=== PATIENT | female | born 1955 | race Caucasian/White ===

== ENCOUNTER 2020-06-13 17:18 | Emergency (ER) | payer MEDICARE, SELFPAY ==
[2020-06-13 17:42] VITALS: BP 130/87; PULSE 70; RESP 18; TEMP 37; O2SAT 100; BMI 40.2
--- NOTE | 2020-06-13 19:00 | PC.NURSE ---
patient approached this rn there are people who are going ahead of me that don't need to go ahead of me. Process of triage explained. patient educated of current longest wait time. patient verbalized understanding.
--- NOTE | 2020-06-13 21:50 | PC.NURSE ---
herminio rn to pt and family bedside educating and expression concerns about wait time.
--- NOTE | 2020-06-13 22:41 | ED.GENADULT ---
HPI - General Adult General Chief complaint: General Medical Stated complaint: Leg Swelling Time Seen by Provider: 06/13/20 22:41 History of Present Illness HPI narrative: 65-year-old female presents with 3 days of worsening right leg pain that she states started in the right inguinal area and now is extending down in to the distal portion of her right lower extremity. In addition, patient states that her leg has increased in size and she is concerned because she has history of prior PE. this course has not been associated with fevers, chills, chest pain / palpitations, nausea, vomiting, diarrhea, urinary pain /burning / frequency. Also, patient denies any numbness/ tingling /weakness into the right lower extremity. No recent history of long car rides or plane trips, hemoptysis, estrogen supplementation, personal history of cancer, recent surgery or bed bound state, calf pain or calf swelling. She states her PE was in 2011 and she is no longer required to take anticoagulants. Related Data Allergies Allergy/AdvReac Type Severity Reaction Status Date / Time gentamicin Allergy Severe DIFFICULTY Unverified 05/26/20 15:35 BREATHING Iodinated Contrast Media Allergy Severe DIFFICULTY Unverified 05/26/20 15:35 BREATHING, NAUSEA, VOMITING latex [LATEX] Allergy Severe ANAPHYLASIS Unverified 05/26/20 15:35 morphine Allergy Severe ANAPHYLAXIS Unverified 05/26/20 15:35 Penicillins Allergy Severe STOPPED Unverified 05/26/20 15:35 BREATHING vancomycin Allergy Severe DIFFICULTY Unverified 05/26/20 15:35 BREATHING esomeprazole Allergy Mild UNKNOWN Unverified 05/26/20 15:35 azithromycin Allergy Unknown Verified 04/03/17 00:00 penicillin V Allergy Unknown Verified 04/03/17 00:00 shellfish derived Allergy Unknown DIFF Unverified 05/26/20 15:35 [SHELLFISH DERIVED] BREATHING, SWELLING pantoprazole AdvReac Mild NAUSEA & Unverified 05/26/20 15:35 VOMITING Erythromycin Allergy Unknown Uncoded 04/03/17 00:00 Gentamicin Sulfate Allergy Unknown Uncoded 04/03/17 00:00 iv contrast dye Allergy Unknown Uncoded 04/03/17 00:00 Latex Gloves Allergy Unknown Uncoded 04/03/17 00:00 From NEXIUM AdvReac Severe VOMITING Uncoded 05/26/20 15:35 Review of Systems Review of Systems: Pertinent positives and negatives as stated in HPI 10 point review of systems is otherwise negative. [facility] Past Medical History Source: nursing notes reviewed Medical History Accelerated essential hypertension Diabetes Embolism Pancreatitis Social History Social History Smoked in Last 30 Days: No Use of substances other than those prescribed or required for medical reasons: No Advance Directives: No Advance Directives Information Provided: Yes Physical Exam Vital Signs and I&O and Narrative: Vital Signs and I&O: Vital Signs Temp 98.2 F 06/13/20 22:53 Pulse 99 06/13/20 22:53 Resp 18 06/13/20 22:53 BP 166/71 H 06/13/20 22:53 Pulse Ox 99 06/13/20 22:53 Intake & Output 06/13/20 06/13/20 06/14/20 06:59 18:59 06:59 Weight 99.79 kg Body Mass Index 40.2 VITAL SIGNS: Reviewed. GENERAL: Well developed, well nourished, in no acute distress. HEAD: Normocephalic/atraumatic, Posterior oropharynx was without edema, erythema or exudate. EYES: PERRLA, Pupils <>, EOMI intact without pain, no nystagmus/pallor/icterus noted EARS: Ext canals without abnormality, TMs non-bulging and non-erythematous NOSE: Nares patent bilateral OROPHARYNX: no oral lesions noted, posterior pharynx clear and non-erythematous without noted tonsillar enlargement/erythema/exudates NECK: Supple, no adenopathy LUNGS: Normal breath sounds. No adventitious sounds or accessory muscle use. SpO2<> CARDIOVASCULAR: Regular rate and rhythm without noted murmurs, no JVD, Bilateral lower extremity nonpitting edema. ABDOMEN: Soft, non-tender, non-distended with bowel sounds. No rigidity. No guarding. No palpable masses or hernias noted MUSCULOSKELETAL: No tenderness, deformities, or effusions noted on gross inspection. EXTREMITIES: No cyanosis, clubbing or edema. SKIN: Inspection of the skin reveals no rashes, ulcerations, jaundice, pallor, or petechiae. NEUROLOGIC: Alert and oriented x 3. Strength and sensation to light touch were grossly intact x 4. Course Course Course Narrative: This is a 65-year-old female with history and clinical presentation most suggestive of likely musculoskeletal etiology, but due to history will evaluate for possible DVT. Review of all investigations is negative for any evidence infection, anemia, or electrolyte imbalance, UTI, and most importantly venous duplex was negative for any evidence DVT. All results and findings were discussed with patient at bedside and informed the patient that this may be secondary to arthritis. She states that her PCP had said the same thing. Medical Decision Making Lab Data Result diagrams: 06/13/20 23:31 06/13/20 23:31 Labs: Lab Results 06/13/20 06/13/20 06/14/20 Range/Units 23:31 23:31 01:04 WBC 6.2 (4.8-10.8) X10*3/uL RBC 4.50 (4.20-5.50) X10*6/uL Hgb 13.1 (12.0-16.0) g/dl Hct 40.5 (37-47) % MCV 90.0 (80-98) fL MCH 29.1 (27.0-33.0) pg MCHC 32.3 (31.0-35.0) g/dl RDW 13.2 (11.0-16.0) % Plt Count 250 (160-400) X10*3/uL MPV 10.9 (9.4-12.3) fL Immature Gran % (Auto) 0.6 H (0.0-0.4) % Neut % (Auto) 64.1 (45-73) % Lymph % (Auto) 22.7 (20-40) % Gates % (Auto) 6.2 (2-11) % Eos % (Auto) 5.4 H (0-4) % Baso % (Auto) 1.0 (0-2) % Neut # (Auto) 4.0 (2.0-8.3) X10*3/uL Lymph # (Auto) 1.4 (1.2-4.9) X10*3/uL Gates # (Auto) 0.4 (0.1-1.2) X10*3/uL Eos # (Auto) 0.3 (0.0-0.4) X10*3/uL Baso # (Auto) 0.1 (0.0-0.2) X10*3/uL Abs Immat Gran (auto) 0.04 H (0.00-0.03) X10*3/uL Absolute Nucleated RBC 0.000 (0.0-0.012) X10*3/uL Nucleated RBC % (auto) 0.0 (0.0-0.2) /100WBC Sodium 138 (135-145) mmol/L Potassium 4.3 (3.3-5.1) mmol/l Chloride 101 (96-108) mmol/L Carbon Dioxide 29 (22-29) mmol/L Anion Gap 12 (12-20) BUN 15 (9-16) mg/dL Creatinine 0.91 (0.5-1.4) mg/dL Estim Creat Clear Calc 66.2 Estimated GFR > 60 Random Glucose 137 H (60-115) mg/dL Calcium 9.8 (8.4-10.2) mg/dL Total Bilirubin 0.6 (0.0-1.0) mg/dL AST 28 (5-31) U/L ALT 23 (0-31) U/L Alkaline Phosphatase 79 (39-117) U/L Total Protein 7.3 (6.5-8.0) g/dL Albumin 4.3 (3.5-5.0) g/dL Urine Color YELLOW Urine Appearance CLEAR Urine pH 7.5 (5.0-8.0) Ur Specific Fleming 1.020 (1.005-1.025) Urine Protein NEG (NEG-TRACE) MG/DL Urine Glucose (UA) NEG (NEG) MG/DL Urine Ketones NEG (NEG) MG/DL Urine Blood NEG (NEG) Urine Nitrite NEG (NEG) Ur Leukocyte Esterase NEG (NEG) ECG Data Attestation: I personally reviewed and interpreted this ECG as follows: Prior ECG tracings: available for review (04/04/2018) Interpretation: NSR, HR-80, no evidence of ischemia Discharge Plan Discharge Clinical Impression: Acute hip pain Qualifiers: Laterality: right Qualified Code(s): M25.551 - Pain in right hip Patient Disposition: Home, Self-Care Instructions: Hip Pain (ED) Additional Instructions: 1. resume all home medications as prescribed. 2. Tylenol 1000 mg, orally, every 6 hours as needed for pain control. Do not exceed 4000 mg within 24 hours. 3. consider the use of lidocaine patches, available [id number] at any drug store, apply to area of maximal tenderness as directed on the outside packaging. The patient and/or family acknowledge understanding of results (as applicable), diagnosis, treatment plan, need for follow up, and symptoms that should prompt a return to the emergency room. Referrals: Carmita Holloway MD [Primary Care Provider] - 2 days (For further evaluation of your right hip pain.)
--- NOTE | 2020-06-13 22:48 | ECG_ITS ---
Test Reason : MEDICAL CLEARANCE Blood Pressure : / mmHG Vent. Rate : 080 BPM Atrial Rate : 080 BPM P-R Int : 152 ms QRS Dur : 080 ms QT Int : 408 ms P-R-T Axes : 067 032 069 degrees QTc Int : 470 ms Normal sinus rhythm Normal ECG When compared with ECG of 04-APR-2018 04:58, No significant change was found Referred By: Tracy Cabrera Electronically Signed By:CANDACE PALMER
--- NOTE | 2020-06-13 22:49 | US_ITS ---
EXAMINATION: RIGHT LOWER EXTREMITY VENOUS ULTRASOUND CLINICAL INFORMATION: Edema. Pain.. COMPARISON: None. TECHNIQUE: Doppler spectral analysis and color flow Doppler imaging was performed of the right lower extremity. Compression and augmentation maneuvers were performed. FINDINGS: The right common femoral, femoral, popliteal and calf veins were well-identified and normal. They demonstrate normal compressibility and color fill-in. No evidence of popliteal fossa cyst. IMPRESSION: No evidence for right lower extremity deep vein thrombosis.
[2020-06-13 22:53] VITALS: BP 166/71; PULSE 99; RESP 18; TEMP 36.8; O2SAT 99
--- NOTE | 2020-06-13 23:12 | PC.NURSE ---
patient transported to ultrasound
[2020-06-13 23:34] LABS: MANUAL DIFF FLAG NO
[2020-06-13 23:37] LABS: Basophils Absolute Auto 0.1 X10*3/uL (0.0-0.2); Eosinophils Absolute Auto 0.3 X10*3/uL (0.0-0.4); Eosinophils Percent Auto 5.4 % (0-4); Hematocrit 40.5 % (37-47); Hemoglobin 13.1 g/dl (12.0-16.0); Imm Gran Abs Auto 0.04 X10*3/uL (0.00-0.03); Imm Gran Pct Auto 0.6 % (0.0-0.4); Lymphocytes Absolute Auto 1.4 X10*3/uL (1.2-4.9); Lymphocytes Percent Auto 22.7 % (20-40); Mean Corpuscular HGB Conc 32.3 g/dl (31.0-35.0); Mean Corpuscular Hemoglobin 29.1 pg (27.0-33.0); Mean Platelet Volume 10.9 fL (9.4-12.3); Monocytes Absolute Auto 0.4 X10*3/uL (0.1-1.2); Monocytes Percent Auto 6.2 % (2-11); Neutrophils Percent Auto 64.1 % (45-73); Platelet Count 250 X10*3/uL (160-400); Red Cell Distribution Width 13.2 % (11.0-16.0); White Blood Count 6.2 X10*3/uL (4.8-10.8)
--- NOTE | 2020-06-13 23:37 | PC.NURSE ---
Pt returned from Ultrasound via stretcher at this time. Labs obtained. pt awaiting reuslts at this time. pt sitting up in stretcher using IPAD no distress noted at this time.
[2020-06-14] VITALS: RESP 16
[2020-06-14 00:01] LABS: Alanine Aminotransferase 23 U/L (0-31); Albumin Level 4.3 g/dL (3.5-5.0); Alkaline Phosphatase 79 U/L (39-117); Anion Gap 12 (12-20); Aspartate Amino Transferase 28 U/L (5-31); Bilirubin Total 0.6 mg/dL (0.0-1.0); Blood Urea Nitrogen 15 mg/dL (9-16); Calcium 9.8 mg/dL (8.4-10.2); Carbon Dioxide 29 mmol/L (22-29); Chloride 101 mmol/L (96-108); Creatinine Clr Calc Pharmacy 66.2; Estimated Glomerular Filt Rate > 60; Glucose Random 137 mg/dL (60-115); Potassium 4.3 mmol/l (3.3-5.1); Sodium 138 mmol/L (135-145); Total Protein 7.3 g/dL (6.5-8.0)
[2020-06-14 01:18] LABS: Glucose Urine UA NEG (NEG); Leukocyte Esterase Urine NEG (NEG); Nitrite Urine NEG (NEG); PH 7.5 (5.0-8.0); Urine Blood NEG (NEG); Urine Ketones NEG (NEG); Urine Protein NEG (NEG-TRACE)
[2020-06-14 01:31] LABS: Appearance Urine CLEAR; Color Urine YELLOW; UACC Culture Trigger NO
== END 2020-06-14 02:16 | disposition home or self-care (01) ==
PROVIDERS: Emergency Provider Student in an Organized Health Care Education/Training Program; PCP Internal Medicine
DX: M25.551 Pain in right hip (principal); R60.0 Localized edema; Z79.899 Other long term (current) drug therapy
CPT/HCPCS: 36415; 80053; 81003; 85025; 93005; 93010; 93971; 99284

== ENCOUNTER → 2020-08-17 12:12 | Outpatient (BNVA) | payer OTHER, MEDICARE, SELFPAY | PROVIDERS: PCP Internal Medicine; Referring Provider Internal Medicine; Visit Provider Internal Medicine | DX: Z76.89 Persons encountering health services in other specified circumstances (principal) ==

== ENCOUNTER 2020-08-23 13:04 | Outpatient (REF) | payer MEDICARE, OTHER, SELFPAY ==
--- NOTE | 2020-08-23 13:15 | XR_ITS ---
EXAMINATION: XR HIP, RIGHT CLINICAL INFORMATION: Right hip pain. Assess for osteoarthritis COMPARISON: CT performed 05/05/2014. TECHNIQUE: Two views of the right hip. FINDINGS: No fracture or dislocation. The right femoral head articulates appropriately with its acetabulum. There is mild joint space narrowing. Small marginal osteophytes are present. The right hemipelvis is intact. The pubic symphysis is well aligned. The bowel gas pattern is unremarkable. Calcification noted in the superficial soft tissues as seen on previous CT. XR/XR hip RT min 2V IMPRESSION: Mild degenerative changes of the right hip.
== END 2020-08-23 13:05 | disposition home or self-care (01) ==
LOC: HO.XRAY 13:04
PROVIDERS: Visit Provider Internal Medicine
DX: M25.551 Pain in right hip (principal)
CPT/HCPCS: 73502

== ENCOUNTER → 2020-09-14 08:31 | Outpatient (REF) | payer MEDICARE, OTHER, SELFPAY ==
--- NOTE | 2020-09-14 08:30 | CA_ITS ---
Transthoracic Echocardiogram Patient (Last, First, Middle): Felecia Self M Gender: Female Date of : 1955 Age: 65 Procedure Date: 09/14/2020 Procedure Type: Transthoracic Echocardiogram Location: OP Height: 160.02 cm Weight: 102.06 kg BSA: 2.03 m2 Heart Rate: bpm BP: 128 / 80 mmHg Database Designer: Referring MD: Armando Holloway MD [employer] Manager: Jose Barker MD Symptoms: I67.4 HYPERTENSIVE ENCEPHALOPATHY,R60.9 EDEMA Study Quality: Fair ECG Rhythm: Sinus Conclusions: - 1. Normal LV systolic function with moderate LVH with impaired relaxation filling pattern 2. Mildly dilated left atrium 3. Mild aortic stenosis 4. Normal RV systolic pressure 5. No pericardial effusion Findings Left Ventricle Normal left ventricular size and systolic function. There is moderately increased left ventricular wall thickness. The visually estimated ejection fraction is between 60-65%. Spectral Doppler is indicative of an impaired relaxation filling pattern. E/E prime ratio is between 8 and 15 consistent with indeterminate filling pressures. Right Ventricle Normal right ventricular cavity size and systolic function. Atria The left atrium is mildly dilated. There is lipomatous hypertrophy of the interatrial septum. There is no evidence of interatrial shunt. The right atrium is likely dilated. Aortic Valve There is mild calcification of the aortic valve. There is mild thickening of the aortic valve. There is mild aortic valve stenosis. The peak aortic gradient is 29 mmHg.The mean gradient is 15 mmHg. The aortic valve area is 1.84 cm2. There is no aortic valve regurgitation. Mitral Valve There is mild anterior and posterior mitral leaflet thickening. There is mild mitral annular calcification. There is trace mitral valve regurgitation. There is no mitral valve stenosis. Pulmonic Valve The pulmonic valve was not well visualized. Tricuspid Valve Likely normal tricuspid valve structure and function. There is trace tricuspid valve regurgitation. The right ventricular systolic pressure is normal. The right ventricular systolic pressure is 21 mmHg. Normal right atrial pressure. There is no evidence of pulmonary hypertension. Great Vessels All visible segments of the aorta are normal in size. The pulmonary artery was not well visualized. Venous The inferior vena cava is normal in size and collapses greater than 50% with inspiration. Pericardium/Pleural There is no evidence of pericardial effusion. Prior Study Comparison Changes noted compared to prior study dated: 04/26/2017. Mild aortic stenosis is present. There is moderate LVH Measurements 2D Linear Measurements IVSd: 1.55 0.6-0.9/0.6-1.0 cm LVIDd: 4.03 3.9-5.3/4.2-5.9 cm LVIDd Index: 1.99 2.4-3.2/2.2-3.1 cm/m2 LVIDs: 2.48 2.0-3.6 cm LVPWd: 1.46 0.7-1.1 cm Ao Root: 2.80 2.1-3.5 cm LA Diam: 3.90 2.7-3.8/3.0-4.0 cm LAIDs Index: 1.92 1.5-2.3 cm/m2 LV Mass: 294.80 67-162/88-224 g LV Mass Index: 145.22 43-95/49-115 g/m2 LVOT Diam: 2.10 3.0+(-)1.3 cm 2D Systolic Function EF 4C: 68.40 >55% EF 2C: 68.20 >55% EF BiP: 69.50 >55% Mitral Valve MV Pk E: 0.98 MV PK A: 1.06 MV Decel Time: 268.00 E/A: 0.90 E'Lateral: 6.48 E'Medial: 6.48 E/E' Med: 15.10 E/E' Lat: 15.10 PHT: 78.00 MVA PHT: 2.82 Decel [place]: 3.66 Aortic Valve AoV Pk Espinoza: 2.69 AoV Mn Espinoza: 1.78 AoV VTI: 0.61 AoV Pk Grad: 29.00 Aov Mn Grad: 15.00 [place] Cont.VTI: 1.84 LVOT LVOT Pk Espinoza: 1.43 LVOT Mn Espinoza: 0.97 LVOT VTI: 0.38 LVOT Pk Grad: 8.00 LVOT Mn Grad: 5.00 LVOT Diam: 2.10 LVOT Area: 3.46 Diastolic Function MV Pk E: 0.98 MV Pk A: 1.06 E/A: 0.90 E'Medial: 6.48 E/E' Med: 15.10 E' Laterial: 6.48 E/E' Lat: 15.10 Tricuspid Valve TR Pk Espinoza: 2.14 TR Pk Grad: 18.00 RA Press: 3.00 RVSP: 21.00 Great Vessels Aorta Ao Root-2D: 2.80 2.0-3.7 cm Ao Asc: 3.20 2.1-3.4 cm Pulmonary Valve PV Pk Espinoza: 1.07 Peak PV Grad: 5.00 Updated in Other Vendor System with Status of Final Jose Barker MD electronically signed on 09/14/2020 1:43:41 PM with status of Final
== END ==
LOC: HO.CARD 08:31
PROVIDERS: PCP Internal Medicine; Visit Provider Internal Medicine
DX: I10 Essential (primary) hypertension (principal); R60.0 Localized edema; Z79.899 Other long term (current) drug therapy
CPT/HCPCS: 93306

== ENCOUNTER 2020-09-27 15:39 | Outpatient (REF) | payer MEDICARE, OTHER, SELFPAY ==
[2020-09-27 16:28] LABS: Estimated Average Glucose 272 mg/dL; Hemoglobin A1c % 11.1 %
[2020-09-27 17:04] LABS: Alanine Aminotransferase 26 U/L (0-31); Albumin Level 4.2 g/dL (3.5-5.0); Alkaline Phosphatase 78 U/L (39-117); Anion Gap 11 (12-20); Aspartate Amino Transferase 28 U/L (5-31); Bilirubin Total 0.5 mg/dL (0.0-1.0); Blood Urea Nitrogen 14 mg/dL (9-16); Calcium 9.8 mg/dL (8.4-10.2); Carbon Dioxide 30 mmol/L (22-29); Chloride 103 mmol/L (96-108); Cholesterol 193 mg/dL; Estimated Glomerular Filt Rate > 60; Glucose Random 131 mg/dL (60-115); HDL Cholesterol 29 mg/dL; Phosphorus 2.7 mg/dL (2.7-4.5); Potassium 4.4 mmol/l (3.3-5.1); Sodium 140 mmol/L (135-145); Total Protein 7.2 g/dL (6.5-8.0); Triglycerides 722 mg/dL
[2020-09-27 17:09] LABS: Vitamin D 25-OH Total 13.3 ng/mL (>30)
[2020-09-27 17:17] LABS: Renal w Reflex Lab Use Only Order verified
[2020-09-27 17:29] LABS: Glucose Urine UA 250 MG/DL (NEG); Leukocyte Esterase Urine NEG (NEG); Nitrite Urine NEG (NEG); PH 7.5 (5.0-8.0); Urine Blood NEG (NEG); Urine Ketones NEG (NEG); Urine Protein NEG (NEG-TRACE)
[2020-09-27 17:30] LABS: Appearance Urine CLEAR; Color Urine YELLOW
[2020-09-27 22:03] LABS: Creatinine Urine 93.18 mg/dL; Microalbum/Creatinine Ratio Ur 18.2 ug/mg cr
[2020-09-28 07:13] LABS: LDL Cholesterol Direct 43 mg/dL (<100)
[2020-09-30 22:32] LABS: Glutamic acid decarboxylase Ab <5 IU/mL (<5)
[2020-10-01 18:07] LABS: Insulinoma associated 2 aatb <5.4 U/mL (<5.4)
[2020-10-04 00:12] LABS: Islet Cell Antibody Screen NEGATIVE (NEGATIVE)
== END 2020-09-27 15:40 | disposition home or self-care (01) ==
LOC: HO.LAB 15:39
PROVIDERS: Absent Provider Internal Medicine; PCP Internal Medicine; Visit Provider Internal Medicine Nephrology
DX: I12.9 Hypertensive chronic kidney disease with stage 1 through stage 4 chronic kidney disease, or unspecified chronic kidney disease (principal); N18.2 Chronic kidney disease, stage 2 (mild); E11.22 Type 2 diabetes mellitus with diabetic chronic kidney disease
CPT/HCPCS: 36415; 80053; 80061; 81003; 82043; 82306; 83036; 83721; 84100; 86255; 86341

== ENCOUNTER → 2020-11-01 14:56 | Outpatient (BNVA) | payer MEDICARE, OTHER, SELFPAY | PROVIDERS: PCP Internal Medicine; Visit Provider Internal Medicine | DX: R07.2 Precordial pain (principal); R06.02 Shortness of breath; E11.8 Type 2 diabetes mellitus with unspecified complications; E78.5 Hyperlipidemia, unspecified; I10 Essential (primary) hypertension | CPT/HCPCS: 93005; 99202 ==

== ENCOUNTER → 2020-11-04 08:00 | Outpatient (REF) | payer MEDICARE, OTHER, SELFPAY ==
--- NOTE | ~2020-11-04 | NM_ITS ---
Myocardial perfusion study Indication: Shortness of breath evaluate for myocardial ischemia Technique: The patient was brought in for a Lexiscan perfusion study on 11/04/2020. Patient performed low-level exercise and was injected 0.4 mg of Lexiscan intravenously. Within a minute of injection, 35 mCi of sestamibi was given intravenously. Images were obtained using the SPECT gamma camera interlaced with the gating device. Images were obtained in supine position. Resting perfusion study was performed on 11/08/2020. Patient was administered 35 mCi of sestamibi intravenously at rest. Images were then obtained in supine position. Images obtained with and without CT attenuation. Total DLP 118 mGy-cm. Images were processed with the software and compared side to side in short axis, horizontal long axis and vertical long axis views. Findings: The stress perfusion study showed non attenuated images show moderately reduced uptake in the distal lateral and mildly reduced uptake in the inferolateral wall of the LV myocardium. Attenuation corrected images show mildly reduced uptake in the apex of the LV myocardium.. The gated study shows normal LV systolic function with calculated LVEF of 55%. LV cavity is normal in size. The gated study shows normal systolic wall thickening and contraction of segments. Resting study shows no change in perfusion pattern compared to stress perfusion study. Gating at rest reveals normal systolic wall motion with ejection fraction at 55%. The findings are consistent with no reversible defect suggestive of ischemia. Fixed mild apical defect most likely attenuation artifact. This is a normal myocardial perfusion study. NM/NM cardiolite stress test Impression: 1. Myocardial perfusion imaging study shows normal myocardial perfusion 2. Gated LVEF is 55% 3. Transient ischemic dilatation not present EKG is nondiagnostic for ischemia
--- NOTE | 2020-11-04 08:00 | CA_ITS ---
Acquisition Time: 2020-11-04 08:23:58 Total Exercise Time: 00:02:00 Test Indications: Screening for CAD Medications: Protocol: LEXISCAN Max HR: 096 BPM 62% of Pred: 153 BPM Max BP: 190/070 mmHG Max Work Load: 1.6 METS Pharmacological stress test using Lexiscan while walking for 2 minutes on the treadmill at 1 mph. Pt c/o SOB and dizziness from Lexiscan that was reversed with Aminophyline 75 mg IV. No CP. EKG without any arrhythmias, non-diagnostic for ischemia. Nuclear images to follow. Hypertensive before exercise. Pt took her morning dose of enalapril and BP down to 148/74. Test reviewed with Dr. Keating Referred By: Nico Keating Overread By:
== END ==
LOC: HO.CARD 08:00
PROVIDERS: Visit Provider Internal Medicine
DX: R07.2 Precordial pain (principal); R06.02 Shortness of breath
CPT/HCPCS: 78452; 93017; A9500; J0280; J2785

== ENCOUNTER 2020-11-05 18:35 | Inpatient (IN) | payer MEDICARE, OTHER, SELFPAY ==
--- NOTE | ~2020-11-05 | CT_ITS ---
EXAMINATION: CT ABDOMEN AND PELVIS WITHOUT CONTRAST CLINICAL INFORMATION: Epigastric pain. History of pancreatitis. COMPARISON: Renal [address] abdomen pelvis 05/05/2014 TECHNIQUE: Multidetector volumetric imaging was performed from the superior aspect of the liver through the pubic symphysis. Sagittal and coronal reformatted images were obtained on the technologist's workstation. This CT examination was performed using dose optimization techniques as appropriate, variously including the following: *Automated exposure control *Adjustment of mA and/or kV according to patient size (this includes techniques or standardized protocols for targeted exams where dose is matched to indication/reason for exam; i.e. extremities or head) *Use of iterative reconstruction technique DLP: 946 mGy-cm FINDINGS: Visualized lung bases are well aerated. Coronary artery calcifications are partially visualized. The liver is normal in size but demonstrates diffusely decreased attenuation. The gallbladder is not clearly visualized. The pancreas is normal in size but demonstrates diffuse peripancreatic stranding, similar to prior imaging. No gross pancreatic pseudocysts identified. The spleen and adrenal glands are unremarkable. Symmetrically sized kidneys. No renal calculi or hydronephrosis bilaterally. Normal caliber loops of small and large bowel. Mild colonic diverticulosis without CT evidence to suggest active diverticulitis. Normal appendix. Tiny fat-containing umbilical hernia is unchanged Nonaneurysmal abdominal aorta which demonstrates mild atherosclerotic disease. No retroperitoneal lymphadenopathy. The bladder is normal in appearance. The uterus is surgically absent. No gross free pelvic fluid. No inguinal lymphadenopathy. Diffuse osteopenia. Moderate to severe diffuse degenerative changes of the spine. CT/CT abdomen pelvis wo con IMPRESSION: 1. Diffuse peripancreatic stranding is again noted. Findings are most suggestive of acute pancreatitis. No complicating pseudocyst identified. Correlation with amylase and lipase recommended. 2. Hepatic steatosis. 3. Colonic diverticulosis.
[2020-11-05 18:36] VITALS: BP 209/88; PULSE 81; RESP 20; TEMP 36.6; O2SAT 97; BMI 39.3
--- NOTE | 2020-11-05 18:46 | PC.NURSE ---
pt medicated with sl zofran
--- NOTE | 2020-11-05 18:57 | ECG_ITS ---
Test Reason : ABDOMINAL PAIN Blood Pressure : / mmHG Vent. Rate : 082 BPM Atrial Rate : 082 BPM P-R Int : 178 ms QRS Dur : 084 ms QT Int : 424 ms P-R-T Axes : 058 043 062 degrees QTc Int : 495 ms Normal sinus rhythm Prolonged QT Abnormal ECG When compared to the previous EKG of 14 jun 2020, QTc prolonged. Referred By: Sandra Barraza Electronically Signed By:SANJEEV CHRIS
[2020-11-05 20:00] VITALS: BP 184/77; PULSE 86; RESP 22; O2SAT 98
--- NOTE | 2020-11-05 20:09 | ED_ITS ---
HPI - Abdominal Pain General Chief Complaint: Abdominal Pain Stated Complaint: Abdominal pain Time Seen by Provider: 11/05/20 18:56 Source: patient Mode of arrival: ambulatory Limitations: no limitations History of Present Illness HPI narrative: Patient comes emergency room complaining of epigastric pain. Patient states that she thinks she has pancreatitis. Patient states she has history of pancreas divisum which has caused previous episodes of bronchitis. In her 40s she had multiple episodes of pancreatitis. Patient complaining of epigastric pain and vomiting. It started yesterday as back pain, this morning it became abdominal pain. No diarrhea. Patient states that she has a fentanyl patch that is used to treat chronic pain from pancreatitis. MD elicited complaint: abdominal pain Related Data Home Medications Medication Instructions Recorded Confirmed albuterol sulfate 90 mcg/actuation INHALATION 08/17/20 08/17/20 aerosol inhaler amlodipine 10 mg tablet 10 mg PO DAILY 08/17/20 08/17/20 atorvastatin 40 mg tablet 40 mg PO DAILY 08/17/20 08/17/20 enalapril maleate 20 mg tablet 20 mg PO BID 08/17/20 08/17/20 fenofibrate nanocrystallized 145 145 mg PO DAILY 08/17/20 08/17/20 mg tablet fentanyl 25 mcg/hr transdermal 1 patch TOPICAL Q3D 08/17/20 08/17/20 patch furosemide 40 mg tablet 40 mg PO DAILY 08/17/20 08/17/20 gabapentin 300 mg capsule 300 mg PO BID PRN 08/17/20 08/17/20 insulin detemir U-100 100 unit/mL 91 unit SUBCUT BID ml 08/17/20 08/17/20 subcutaneous solution insulin lispro 100 unit/mL 15 unit SUBCUT TID ml 08/17/20 08/17/20 subcutaneous pen lansoprazole 30 mg capsule,delayed 30 mg PO DAILY 08/17/20 08/17/20 release metoprolol tartrate 100 mg tablet 100 mg PO BID 08/17/20 08/17/20 oxycodone 10 mg tablet 10 mg PO QID PRN 08/17/20 08/17/20 pen needle, diabetic 31 gauge x #1200 ea 08/17/20 08/17/20 5/16 Allergies Allergy/AdvReac Type Severity Reaction Status Date / Time gentamicin Allergy Severe DIFFICULTY Verified 11/01/20 15:08 BREATHING Iodinated Contrast Media Allergy Severe DIFFICULTY Verified 11/01/20 15:08 BREATHING, NAUSEA, VOMITING latex [LATEX] Allergy Severe ANAPHYLASIS Verified 11/01/20 15:08 morphine Allergy Severe ANAPHYLAXIS Verified 11/01/20 15:08 Penicillins Allergy Severe STOPPED Verified 11/01/20 15:08 BREATHING vancomycin Allergy Severe DIFFICULTY Verified 11/01/20 15:08 BREATHING esomeprazole Allergy Mild UNKNOWN Verified 11/01/20 15:08 azithromycin Allergy Unknown unk Verified 11/01/20 15:08 erythromycin base Allergy Unknown unk Verified 11/01/20 15:08 shellfish derived Allergy Unknown DIFF Verified 11/01/20 15:08 [SHELLFISH DERIVED] BREATHING, SWELLING pantoprazole AdvReac Mild NAUSEA & Verified 11/01/20 15:08 VOMITING Review of Systems Review of Systems Constitutional : No Weight loss, No Fever, No Chills, No Night Sweats, No Fatigue, No Malaise ENT/Mouth : No Hearing loss, No Ear Pain, No Nasal Congestion, No Sinus Pain, No Hoarseness, No sore throat, No Rhinorrhea, No Swallowing Difficulty Eyes: No Eye Pain, No Swelling, No Redness, No Foreign Body, No Discharge, No Vision Changes Cardiovascular : No Chest Pain, No SOB, No Dyspnea on Exertion, No Orthopnea, No Edema, No Palpitations Respiratory : No Cough, No Sputum, No Wheezing, No Smoke Exposure, No Dyspnea Gastrointestinal : Complaining of nausea and vomiting, No Diarrhea, No Constipation, complaining of epigastric pain, No Hematochezia, No Melena Genitourinary : no irregular bleeding, No Dysuria, No Urinary Frequency, No Hematuria, No Urinary Incontinence, No Urgency, No Flank Pain, No Urinary Flow Changes, No Hesitancy Musculoskeletal : No joint pain, No Myalgias, No Joint Swelling Skin : No Skin Lesions, No rash Neuro : No Weakness, No Numbness, No Paresthesias, No Loss of Consciousness, No Dizziness, No Headache Psych : No Anxiety/Panic, No Depression, No SI/HI/AH/VH, No Social Issues, Heme/Lymph: No Bruising, No Bleeding,No Lymphadenopathy Endocrine : No Polyuria, No Polydipsia, No Temperature Intolerance Physical Exam Vital Signs: Vital Signs: Last Vital Signs Temp 97.8 F 11/05/20 18:36 Pulse 104 H 11/05/20 22:21 Resp 14 02/27/21 21:42 BP 217/92 H 11/05/20 22:21 Pulse Ox 94 11/05/20 21:42 Body Mass Index 39.3 Appearance: Alert. Oriented X3. Anxious Eyes: Pupils equal, round and reactive to light. ENT: Pharynx normal. Neck: Normal inspection. Neck supple. No lymph nodes noted. No crepitus CVS: Normal heart rate and rhythm. Pulses normal. Normal S1 and S2 Respiratory: No respiratory distress. Breath sounds normal. No Wheezing. No rales Abdomen: Soft tenderness to palpation, worse in the epigastric area, actively vo miting No rigidity. No distention. Skin: Skin warm and dry. Normal skin color. Normal skin turgor. Extremities: No lower extremity edema. No lower extremity edema. No Lacerations. No Rash Neuro: Oriented X 3. No motor deficit. No sensory deficit. Moving all extermities. No slurred speech. Course Course Course Narrative: Patient does have pancreatitis, patient being admitted. Patient is unable to take anything p.o. due to pain, patient's blood pressure was controlled with 2.5 mg of IV metoprolol. MDM - Abdominal Pain Lab Data Result diagrams: 11/05/20 20:29 11/05/20 20:29 Labs: Lab Results 11/05/20 11/05/20 11/05/20 Range/Units 20:29 20:29 20:29 WBC 14.0 H (4.8-10.8) X10*3/uL RBC 4.80 (4.20-5.50) X10*6/uL Hgb 13.8 (12.0-16.0) g/dl Hct 42.4 (37-47) % MCV 88.3 (80-98) fL MCH 28.8 (27.0-33.0) pg MCHC 32.5 (31.0-35.0) g/dl RDW 13.1 (11.0-16.0) % Plt Count 261 (160-400) X10*3/uL MPV 11.8 (9.4-12.3) fL Immature Gran % (Auto) 0.4 (0.0-0.4) % Neut % (Auto) 90.8 H (45-73) % Lymph % (Auto) 5.1 L (20-40) % [place] % (Auto) 3.1 (2-11) % Eos % (Auto) 0.2 (0-4) % Baso % (Auto) 0.4 (0-2) % Lymph # (Auto) 0.7 L (1.2-4.9) X10*3/uL [place] # (Auto) 0.4 (0.1-1.2) X10*3/uL Eos # (Auto) 0.0 (0.0-0.4) X10*3/uL Baso # (Auto) 0.1 (0.0-0.2) X10*3/uL Abs Immat Gran (auto) 0.05 H (0.00-0.03) X10*3/uL Absolute Neuts (auto) 12.8 H (2.0-8.3) X10*3/uL Absolute Nucleated RBC 0.000 (0.0-0.012) X10*3/uL Nucleated RBC % (auto) 0.0 (0.0-0.2) /100WBC Smear Tech's Comments VERIFIED Sodium 137 (135-145) mmol/L Potassium 3.6 (3.3-5.1) mmol/L Chloride 101 (96-108) mmol/L Carbon Dioxide 21 L (22-29) mmol/L Anion Gap 19 (12-20) BUN 14 (9-16) mg/dL Creatinine 0.97 (0.5-1.4) mg/dL Estim Creat Clear Calc 66.0 Estimated GFR 57 Random Glucose 360 H* (60-115) mg/dL Calcium 9.5 (8.4-10.2) mg/dL Total Bilirubin 1.1 H (0.0-1.0) mg/dL Direct Bilirubin 0.4 (0.0-0.5) mg/dL AST 35 H (5-31) U/L ALT 28 (0-31) U/L Alkaline Phosphatase 80 (39-117) U/L Total Protein 7.5 (6.5-8.0) g/dL Albumin 4.2 (3.5-5.0) g/dL Lipase 1615 H (8-78) U/L Urine Color YELLOW Urine Appearance CLEAR Urine pH 7.5 (5.0-8.0) Ur Specific [place] 1.015 (1.005-1.025) Urine Protein NEG (NEG-TRACE) MG/DL Urine Glucose (UA) >=1000 H (NEG) MG/DL Urine Ketones 40 (NEG) MG/DL Urine Blood NEG (NEG) Urine Nitrite NEG (NEG) Ur Leukocyte Esterase NEG (NEG) Urine RBC 0 (0) /HPF Urine WBC 1-4 (0-4) /HPF Ur Squamous Epith Cells 1+ /LPF Uric Acid Crystals TRACE /LPF Urine Bacteria TRACE /LPF Imaging Data CT scan - abdomen: Radiologist's impression: FINDINGS: Visualized lung bases are well aerated. Coronary artery calcifications are partially visualized. The liver is normal in size but demonstrates diffusely decreased attenuation. The gallbladder is not clearly visualized. The pancreas is normal in size but demonstrates diffuse peripancreatic stranding, similar to prior imaging. No gross pancreatic pseudocysts identified. The spleen and adrenal glands are unremarkable. Symmetrically sized kidneys. No renal calculi or hydronephrosis bilaterally. Normal caliber loops of small and large bowel. Mild colonic diverticulosis without CT evidence to suggest active diverticulitis. Normal appendix. Tiny fat-containing umbilical hernia is unchanged Nonaneurysmal abdominal aorta which demonstrates mild atherosclerotic disease. No retroperitoneal lymphadenopathy. The bladder is normal in appearance. The uterus is surgically absent. No gross free pelvic fluid. No inguinal lymphadenopathy. Diffuse osteopenia. Moderate to severe diffuse degenerative changes of the spine. CT/CT abdomen pelvis wo con IMPRESSION: 1. Diffuse peripancreatic stranding is again noted. Findings are most suggestive of acute pancreatitis. No complicating pseudocyst identified. Correlation with amylase and lipase recommended. 2. Hepatic steatosis. 3. Colonic diverticulosis. ECG Data Attestation: I personally reviewed and interpreted this ECG as follows: (Heart rate 82, QTC 495, prolonged QT, no ST segment depression or elevation, no T-wave inversion) Discharge Plan Discharge Clinical Impression: Acute hyperglycemia Acute pancreatitis Qualifiers: Pancreatitis type: other Acute pancreatitis complication: no infection or necrosis Qualified Code(s): K85.80 - Other acute pancreatitis without necrosis or infection Hypertension Qualifiers: Hypertension type: unspecified Qualified Code(s): I10 - Essential (primary) hypertension Prescriptions: No Action amlodipine 10 mg tablet 10 mg PO DAILY RF: 0 furosemide 40 mg tablet 40 mg PO DAILY RF: 0 fenofibrate nanocrystallized 145 mg tablet 145 mg PO DAILY RF: 0 lansoprazole 30 mg capsule,delayed release(DR/EC) 30 mg PO DAILY RF: 0 enalapril maleate 20 mg tablet 20 mg PO BID RF: 0 metoprolol tartrate 100 mg tablet 100 mg PO BID RF: 0 atorvastatin 40 mg tablet 40 mg PO DAILY RF: 0 fentanyl 25 mcg/hr patch 72 hour 1 patch topical Q3D RF: 0 (DME) pen needle, diabetic 31 gauge x 5/16 needle See Rx Instructions ea subcut QID Qty: 1200 RF: 0 oxycodone 10 mg tablet 10 mg PO QID PRNRF: 0 gabapentin 300 mg capsule 300 mg PO BID PRN (Reason: pain) RF: 0 Levemir U-100 Insulin 100 unit/mL solution 91 unit subcut BID RF: 0 albuterol sulfate 90 mcg/actuation HFA aerosol inhaler inhalation RF: 0 insulin lispro 100 unit/mL insulin pen 15 unit subcut TID RF: 0 PMFSH Past Medical History Medical History Accelerated essential hypertension Diabetes Embolism Essential hypertension HLD (hyperlipidemia) HTN (hypertension) Other and unspecified hyperlipidemia Pancreatitis T2DM (type 2 diabetes mellitus) Type 2 diabetes mellitus with unspecified complications Vitamin D deficiency Surgical History Hx of cholecystectomy Hx of colonoscopy Hx of endoscopy Hx of hernia repair Hx of hysterectomy Hx of removal of cyst Family History Family History Father Diabetes Mother Diabetes Social History Social History Alcohol intake: never Smoking Status: Never smoker Smoked in Last 30 Days: No Use of substances other than those prescribed or required for medical reasons: No Advance Directives: No Advance Directives Information Provided: Yes
[2020-11-05 20:39] LABS: Basophils Absolute Auto 0.1 X10*3/uL (0.0-0.2); Basophils Percent Auto 0.4 % (0-2); Eosinophils Percent Auto 0.2 % (0-4); Hematocrit 42.4 % (37-47); Hemoglobin 13.8 g/dl (12.0-16.0); Imm Gran Abs Auto 0.05 X10*3/uL (0.00-0.03); Imm Gran Pct Auto 0.4 % (0.0-0.4); Lymphocytes Absolute Auto 0.7 X10*3/uL (1.2-4.9); Lymphocytes Percent Auto 5.1 % (20-40); MANUAL DIFF FLAG SCAN; Mean Corpuscular HGB Conc 32.5 g/dl (31.0-35.0); Mean Corpuscular Hemoglobin 28.8 pg (27.0-33.0); Mean Corpuscular Volume 88.3 fL (80-98); Mean Platelet Volume 11.8 fL (9.4-12.3); Monocytes Absolute Auto 0.4 X10*3/uL (0.1-1.2); Monocytes Percent Auto 3.1 % (2-11); Neutrophils Absolute Auto 12.8 X10*3/uL (2.0-8.3); Neutrophils Percent Auto 90.8 % (45-73); Platelet Count 261 X10*3/uL (160-400); Red Cell Distribution Width 13.1 % (11.0-16.0); SCAN SMEAR FLAG 1
[2020-11-05] MEDS: Prochlorperazine Edisylate 10 MG/2 ML VIAL IVPUSH (20:41)
[2020-11-05] MEDS: HYDROmorphone HCl 1 MG/ML SYRINGE IVPUSH ×2 (20:41→23:18)
[2020-11-05 20:43] LABS: Glucose Urine UA >=1000 MG/DL (NEG); Leukocyte Esterase Urine NEG (NEG); Nitrite Urine NEG (NEG); PH 7.5 (5.0-8.0); Specific Gravity - Urine 1.015 (1.005-1.025); Urine Blood NEG (NEG); Urine Ketones 40 MG/DL (NEG); Urine Protein NEG (NEG-TRACE)
[2020-11-05 20:50] LABS: Appearance Urine CLEAR; Color Urine YELLOW
[2020-11-05 20:58] LABS: RBC Urine 0 /HPF (0); Squamous Epithelial Cell Urine 1+ /LPF; Uric Acid Crystals Urine TRACE /LPF
[2020-11-05 21:02] LABS: SLIDE REVIEW VERIFIED
[2020-11-05 21:15] LABS: Alanine Aminotransferase 28 U/L (0-31); Albumin Level 4.2 g/dL (3.5-5.0); Alkaline Phosphatase 80 U/L (39-117); Anion Gap 19 (12-20); Aspartate Amino Transferase 35 U/L (5-31); Bacteria Urine TRACE /LPF; Bilirubin Direct 0.4 mg/dL (0.0-0.5); Bilirubin Total 1.1 mg/dL (0.0-1.0); Blood Urea Nitrogen 14 mg/dL (9-16); Calcium 9.5 mg/dL (8.4-10.2); Carbon Dioxide 21 mmol/L (22-29); Chloride 101 mmol/L (96-108); Estimated Glomerular Filt Rate 57; Potassium 3.6 mmol/L (3.3-5.1); Sodium 137 mmol/L (135-145); Total Protein 7.5 g/dL (6.5-8.0)
[2020-11-05 21:22] LABS: Glucose Random 360 mg/dL (60-115)
[2020-11-05 21:27] LABS: Lipase 1615 U/L (8-78)
[2020-11-05 21:42] VITALS: BP 246/99; PULSE 96; RESP 14; O2SAT 94
[2020-11-05] MEDS: Insulin Regular, Human 100 UNIT/ML 3 ML VIAL 10 UNIT IVPUSH (22:19)
[2020-11-05 22:21] VITALS: BP 217/92; PULSE 104
[2020-11-05] MEDS: Metoprolol Tartrate 5 MG/5 ML VIAL 2.5 MG IVPUSH (22:21)
[2020-11-05 23:14] VITALS: BP 191/92; PULSE 98; RESP 23; O2SAT 98
--- NOTE | 2020-11-05 23:27 | P.HPHOSP_ITS ---
History of Present Illness Date of Service: 11/05/20 Chief Complaint: Abdominal pain This is a 65-year-old female with past medical history of pancreatitis, hypertension, diabetes, cervical cancer status post hysterectomy, HLD who presents to the hospital with complaints of epigastric abdominal pain radiating to the back. Patient reports that she has a history of pancreas divisum and gets pancreatitis very frequently last episode 2 years ago. Patient has 10/10 pain, radiating to the back, associated with nausea vomiting, constant, relieved by pain medication, no exacerbating factors. The pain started at known on the day of presentation. Patient otherwise denies any chest pain, palpitations, chronic shortness of breath, no diarrhea or constipation, no urinary symptoms and no lower extremity edema. No weakness numbness or tingling. Patient reports that she missed her blood pressure medications today due to the nausea vomiting and abdominal pain. On arrival to the ED patient hypertensive with blood pressure of 209/88, increased to 249 over 99, patient's of metoprolol IV with blood pressure improv ing to 190s over 80s. Labs are significant for WBC count of 14, glucose of 360, total bili of 1.1, direct of 0.4, AST of 35, ALT of 28, lipase of 16 15. Abdominal CTs shows diffuse peripancreatic stranding suggestive of acute pancreatitis. Hepatic steatosis Past medical history as below in regards to her alcohol use patient denies using any alcohol. Review of Systems Review of Systems: Yes all other systems are reviewed and are negative [facility] Medical History (Updated 11/06/20 @ 06:08 by Justen Baltazar MD) Accelerated essential hypertension Cervical cancer Diabetes Embolism Essential hypertension HLD (hyperlipidemia) HTN (hypertension) Other and unspecified hyperlipidemia Pancreatitis T2DM (type 2 diabetes mellitus) Type 2 diabetes mellitus with unspecified complications Vitamin D deficiency Family History Father Diabetes Mother Diabetes Surgical History Hx of cholecystectomy Hx of colonoscopy Hx of endoscopy Hx of hernia repair Hx of hysterectomy Hx of removal of cyst Social History Alcohol intake: never Smoking Status: Never smoker Smoked in Last 30 Days: No Use of substances other than those prescribed or required for medical reasons: No Advance Directives: No Advance Directives Information Provided: Yes Meds Allergies Allergy/AdvReac Type Severity Reaction Status Date / Time gentamicin Allergy Severe DIFFICULTY Verified 11/01/20 15:08 BREATHING Iodinated Contrast Media Allergy Severe DIFFICULTY Verified 11/01/20 15:08 BREATHING, NAUSEA, VOMITING latex [LATEX] Allergy Severe ANAPHYLASIS Verified 11/01/20 15:08 morphine Allergy Severe ANAPHYLAXIS Verified 11/01/20 15:08 Penicillins Allergy Severe STOPPED Verified 11/01/20 15:08 BREATHING INFANT vancomycin Allergy Severe DIFFICULTY Verified 11/01/20 15:08 BREATHING esomeprazole Allergy Mild UNKNOWN Verified 11/01/20 15:08 azithromycin Allergy Unknown unk Verified 11/01/20 15:08 erythromycin base Allergy Unknown unk Verified 11/01/20 15:08 shellfish derived Allergy Unknown DIFF Verified 11/01/20 15:08 [SHELLFISH DERIVED] BREATHING, SWELLING pantoprazole AdvReac Mild NAUSEA & Verified 11/01/20 15:08 VOMITING Home Medications Medication Instructions Recorded Confirmed Last Taken Type albuterol sulfate 90 mcg/actuation 1 - 2 puff INHALATION Q4-6H PRN 08/17/20 11/06/20 Unknown History aerosol inhaler amlodipine 10 mg tablet 10 mg PO DAILY 08/17/20 11/06/20 11/05/20 History atorvastatin 40 mg tablet 40 mg PO DAILY 08/17/20 11/06/20 11/05/20 History enalapril maleate 20 mg tablet 20 mg PO BID 08/17/20 11/06/20 11/05/20 09:00 History fenofibrate nanocrystallized 145 145 mg PO DAILY 08/17/20 11/06/20 11/05/20 Hist ory mg tablet fentanyl 25 mcg/hr transdermal 1 patch TOPICAL Q3D 08/17/20 11/06/20 11/04/20 History patch furosemide 40 mg tablet 40 mg PO DAILY 08/17/20 11/06/20 11/05/20 History gabapentin 300 mg capsule 300 mg PO BID PRN 08/17/20 11/06/20 11/05/20 09:00 History insulin detemir U-100 100 unit/mL 91 unit SUBCUT BID ml 08/17/20 11/06/20 11/05/20 History subcutaneous solution insulin lispro 100 unit/mL See Rx Instructions .ROUTE 08/17/20 11/06/20 Unknown History subcutaneous pen .COMPLEX ml lansoprazole 30 mg capsule,delayed 30 mg PO BID 08/17/20 11/06/20 11/05/20 History release metoprolol tartrate 100 mg tablet 100 mg PO BID 08/17/20 11/06/20 11/05/20 09:00 History oxycodone 10 mg tablet 10 mg PO QID PRN 08/17/20 11/06/20 Unknown History pen needle, diabetic 31 gauge x #1200 ea 08/17/20 08/17/20 Unknown History 01/22 Physical Exam Vital Signs and Narrative: Vital Signs: Last Vital Signs Temp 97.8 F 11/05/20 18:36 Pulse 98 11/05/20 23:14 Resp 23 H 11/05/20 23:14 BP 191/92 H 11/05/20 23:14 Pulse Ox 98 11/05/20 23:14 Body Mass Index 39.3 Const: General: cooperative and in distress (Mildly distressed due to pain) Orientation/consciousness: patient oriented x3 Eyes: General: appearance normal, both eyes and all related structures Resp: Effort & Inspection: normal respiratory effort and able to speak in complete sentences Cardio: Rate: regular rate Rhythm: regular rhythm GI: Other: Severely tender in the epigastric region, no rebound, no guarding Palpation (GI): Soft to palpation Skin: General skin exam: no rashes or lesions noted Neuro: General: patient oriented x3 Cognition (Neuro): normal cognition Extrem: General: Yes normal to inspection and Yes no pedal edema Results Labs CBC and Chem 7: 11/05/20 20:29 11/05/20 20:29 Labs: Laboratory Results - last 24 hr 11/05/20 11/05/20 11/05/20 20:29 20:29 20:29 MCV 88.3 MCH 28.8 MCHC 32.5 RDW 13.1 Plt Count 261 MPV 11.8 Immature Gran % (Auto) 0.4 Neut % (Auto) 90.8 H Lymph % (Auto) 5.1 L [place] % (Auto) 3.1 Eos % (Auto) 0.2 Baso % (Auto) 0.4 Lymph # (Auto) 0.7 L [place] # (Auto) 0.4 Eos # (Auto) 0.0 Baso # (Auto) 0.1 Abs Immat Gran (auto) 0.05 H Absolute Neuts (auto) 12.8 H Absolute Nucleated RBC 0.000 Nucleated RBC % (auto) 0.0 Smear Tech's Comments VERIFIED Anion Gap 19 Estim Creat Clear Calc 66.0 Estimated GFR 57 Random Glucose 360 H* Calcium 9.5 Total Bilirubin 1.1 H Direct Bilirubin 0.4 AST 35 H ALT 28 Alkaline Phosphatase 80 Total Protein 7.5 Albumin 4.2 Triglycerides 790 Lipase 1615 H Urine Color YELLOW Urine Appearance CLEAR Urine pH 7.5 Ur Specific [place] 1.015 Urine Protein NEG Urine Glucose (UA) >=1000 H Urine Ketones 40 Urine Blood NEG Urine Nitrite NEG Ur Leukocyte Esterase NEG Urine RBC 0 Urine WBC 1-4 Ur Squamous Epith Cells 1+ Uric Acid Crystals TRACE Urine Bacteria TRACE Imaging Radiologist's Impressions: Impressions Abdomen/Pelvis CT 11/05/20 20:08 IMPRESSION: 1. Diffuse peripancreatic stranding is again noted. Findings are most suggestive of acute pancreatitis. No complicating pseudocyst identified. Correlation with amylase and lipase recommended. 2. Hepatic steatosis. 3. Colonic diverticulosis. Assessment and Plan (1) Acute pancreatitis: Qualifiers: Acute pancreatitis complication: no infection or necrosis Pancreatitis type: other Qualified Code(s): K85.80 - Other acute pancreatitis without necrosis or infection Status: Acute (2) Hypertensive urgency: Status: Acute (3) Acute hyperglycemia: Status: Acute 65-year-old female with history of diabetes, hypertension, recurrent pancreatitis who presents to the hospital with abdominal pain found to have acute pancreatitis # acute pancreatitis - most likely secondary to her history of pancreas divisum - patient is status post cholecystectomy, does not drink alcohol regularly, and her triglycerides are less than 1000 although still elevated at 700 Plan: - will start on aggressive IV fluids - NPO and advance as tolerated - pain control # hypertensive urgency - denies any headache, change in vision, otherwise stable - reports not take antihypertensives today - will resume her home medications - monitor BP # diabetes mellitus - hyperglycemic on arrival - will resume her home insulin - add low-dose sliding scale insulin # Prolonged QT - possibly secondary to home meds - avoid QT prolonging medications DVT prophylaxis:
[2020-11-05 23:30] LABS: Triglycerides 786 mg/dL
[2020-11-06] VITALS (15 sets, daily range): BP systolic 153–201; BP diastolic 63–87; PULSE 68–111; RESP 14–21; TEMP 36.2–37.1; O2SAT 95–97
[2020-11-06] MEDS: Metoprolol Tartrate 5 MG/5 ML VIAL 2.5 MG IVPUSH (00:07)
[2020-11-06] MEDS: Heparin Sodium,Porcine 5,000 UNIT/ML VIAL 5000 UNIT SUBCUT ×2 (01:55→11:45)
[2020-11-06] MEDS: Lactated Ringers 1,000 ML 200 ML IVCONT ×4 (01:55→19:31)
[2020-11-06] MEDS: hydrALAZINE HCl 20 MG/ML VIAL 10 MG IVPUSH (01:56)
[2020-11-06 02:28] LABS: COVID-19 Test Negative (Negative)
[2020-11-06 07:06] LABS: Basophils Percent Auto 0.2 % (0-2); Eosinophils Absolute Auto 0.1 X10*3/uL (0.0-0.4); Eosinophils Percent Auto 0.5 % (0-4); Hematocrit 40.7 % (37-47); Hemoglobin 13.4 g/dl (12.0-16.0); Imm Gran Abs Auto 0.06 X10*3/uL (0.00-0.03); Imm Gran Pct Auto 0.4 % (0.0-0.4); Lymphocytes Absolute Auto 0.6 X10*3/uL (1.2-4.9); Lymphocytes Percent Auto 4.2 % (20-40); MANUAL DIFF FLAG SCAN; Mean Corpuscular HGB Conc 32.9 g/dl (31.0-35.0); Mean Corpuscular Hemoglobin 29.3 pg (27.0-33.0); Mean Corpuscular Volume 88.9 fL (80-98); Mean Platelet Volume 11.6 fL (9.4-12.3); Monocytes Absolute Auto 0.4 X10*3/uL (0.1-1.2); Monocytes Percent Auto 3.1 % (2-11); Neutrophils Absolute Auto 12.9 X10*3/uL (2.0-8.3); Neutrophils Percent Auto 91.6 % (45-73); Platelet Count 283 X10*3/uL (160-400); Red Blood Count 4.58 X10*6/uL (4.20-5.50); Red Cell Distribution Width 13.4 % (11.0-16.0); SCAN SMEAR FLAG 1
[2020-11-06] MEDS: 0.9 % Sodium Chloride Flush 3 ML SYRINGE IVFLUSH (07:19)
[2020-11-06] MEDS: fentaNYL 25 MCG PATCH.TD72 TRANSDERMA (07:19)
[2020-11-06 07:31] LABS: Blood Urea Nitrogen 14 mg/dL (9-16); Calcium 9.1 mg/dL (8.4-10.2); Creatinine Clr Calc Pharmacy 69.7; Estimated Glomerular Filt Rate > 60; Glucose Random 425 mg/dL (60-115)
[2020-11-06] MEDS: HYDROmorphone HCl 0.5 MG/0.5 ML SYRINGE IVPUSH ×3 (07:35→14:48)
[2020-11-06 07:40] LABS: Anion Gap 20 (12-20); Carbon Dioxide 21 mmol/L (22-29); Chloride 102 mmol/L (96-108); Potassium 4.6 mmol/L (3.3-5.1); Sodium 138 mmol/L (135-145)
[2020-11-06 07:53] LABS: SLIDE REVIEW VERIFIED
[2020-11-06 08:34] LABS: Lipase 939 U/L (8-78)
--- NOTE | 2020-11-06 08:53 | HO.PM.IMPN ---
Subjective Subjective Date of Service: 11/07/20 Interval History: Seen in f/u for acute pancreatitis associated with severe pain, she has history of pancreas divisum and has had recurent pancreaitis. Review of Systems Gen: no fever Resp: no sob, no cough CV: no chest, no EDWARDS, no leg edema GI: No n/v, + abd pain Neuro: No confusion Physical Exam Vital Signs: Vital Signs: Last Vital Signs Temp 97.8 F 11/05/20 18:36 Pulse 107 H 11/06/20 08:08 Resp 19 11/06/20 08:08 BP 162/67 H 11/06/20 08:08 Pulse Ox 97 11/06/20 08:08 Body Mass Index 39.3 Const: General: cooperative and in distress (Mildly distressed due to pain) Orientation/consciousness: patient oriented x3 Resp: Effort & Inspection: normal respiratory effort and able to speak in complete sentences Cardio: Rate: regular rate Rhythm: regular rhythm GI: Other: Severely tender in the epigastric region, no rebound, no guarding Palpation (GI): Soft to palpation Skin: General skin exam: no rashes or lesions noted Neuro: General: patient oriented x3 Cognition (Neuro): normal cognition Extrem: General: Yes normal to inspection and Yes no pedal edema Objective Data Current Medications Generic Name Dose Route Start Last Admin Trade Name Freq PRN Reason Stop Dose Admin Acetaminophen 650 mg 11/06/20 00:06 Acetaminophen 325 Mg Tablet PO Q6H PRN Pain, Mild (Pain Scale 1-3) Albuterol Sulfate 1 - 2 puff 11/06/20 06:13 Albuterol Sulfate 90 Mcg 8 Gm Inhaler INHALE Q4H PRN Shortness Of Breath Or Wheezin Amlodipine Besylate 10 mg 11/06/20 09:00 Amlodipine Besylate 10 Mg Tablet PO DAILY [facility] Protocol Atorvastatin Calcium 40 mg 11/06/20 09:00 Atorvastatin Calcium 40 Mg Tablet PO DAILY ALYSSA Docusate Sodium 100 mg 11/06/20 00:06 Docusate Sodium 100 Mg Capsule PO DAILY PRN Constipation Enalapril Maleate 20 mg 11/06/20 09:00 Enalapril Maleate 10 Mg Tablet PO BID ALYSSA Fentanyl 25 mcg 11/06/20 07:00 11/06/20 07:19 Fentanyl 25 Mcg Patch.Td72 TRANSDERMA 25 mcg Q3D ALYSSA Administration Furosemide 40 mg 11/06/20 09:00 Furosemide 40 Mg Tablet PO DAILY [facility] Protocol Gabapentin 300 mg 11/06/20 06:13 Gabapentin 300 Mg Capsule PO BID PRN pain Heparin Sodium (Porcine) 5,000 unit 11/06/20 00:06 11/06/20 01:55 Heparin Sodium,Porcine 5,000 Unit/Ml Vial SUBCUT 5,000 unit Q12H ALYSSA Administration Hydromorphone HCl 0.5 mg 11/06/20 00:06 11/06/20 07:35 Hydromorphone Hcl 0.5 Mg/0.5 Ml Syringe IVPUSH 0.5 mg Q4H PRN Administration Pain, Severe (Pain Scale 7-10) Lactated Ringer's 1,000 mls @ 200 mls/hr 11/06/20 00:06 11/06/20 07:19 Lr IVCONT 200 mls/hr .Q5H [facility] Administration Insulin Glargine 47 unit 11/06/20 09:00 Insulin Glargine,Hum.Rec.Anlog 100 Unit/Ml 10 Ml Vial SUBCUT BID [facility] Insulin Human Lispro 0 unit 11/06/20 07:30 Insulin Lispro 100 Unit/Ml 3 Ml Vial SUBCUT QIDACHS [facility] Protocol Lisinopril 10 mg 11/06/20 09:00 Lisinopril 10 Mg Tablet PO DAILY [facility] Protocol Metoprolol Tartrate 100 mg 11/06/20 09:00 Metoprolol Tartrate 100 Mg Tablet PO BID [facility] Protocol Non-Formulary Medication 145 mg 11/06/20 09:00 Fenofibrate Nanocrystallized PO DAILY [facility] Lansoprazole 30 Mg 30 each 11/06/20 09:00 Cap PO BID [facility] Oxycodone HCl 10 mg 11/06/20 06:13 Oxycodone Hcl Immed Release 5 Mg Tablet PO QID PRN Pain Sodium Chloride 3 ml 11/06/20 00:06 11/06/20 07:19 0.9 % Sodium Chloride Flush 3 Ml Syringe IVFLUSH 3 ml QSHIFT [facility] Administration Labs CBC & Chem 7: 11/06/20 06:57 11/06/20 06:58 Assessment and Plan (1) Acute pancreatitis: Status: Acute (2) Hypertensive urgency: Status: Acute (3) Acute hyperglycemia: Status: Acute Assessment and Plan: 65-year-old female with history of diabetes, hypertension, recurrent pancreatitis who presents to the hospital with abdominal pain found to have acute pancreatitis # Acute pancreatitis - most likely secondary to pancreas divisum - patient is status post cholecystectomy, does not drink alcohol regularly, and her triglycerides are less than 1000 although still elevated at 700 Plan: - IV Fluid - NPO and advance as tolerated - pain control with morphine # hypertensive urgency--BP is better - denies any headache, change in vision, otherwise stable - reports not take antihypertensives today - will resume her home medications (Norvasc, Metoprolol) add Lisinopril - monitor BP # diabetes mellitus - hyperglycemic on arrival - will resume her home insulin - add low-dose sliding scale insulin # Prolonged QT - possibly secondary to home meds - avoid QT prolonging medications -Repeat ECG DVT prophylaxis:
[2020-11-06] MEDS: amLODIPine Besylate 10 MG TABLET PO (10:16)
[2020-11-06] MEDS: oxyCODONE HCl Immed Release 5 MG TABLET 10 MG PO ×2 (10:16→16:39)
[2020-11-06] MEDS: Atorvastatin Calcium 40 MG TABLET PO (10:17)
[2020-11-06] MEDS: Furosemide 40 MG TABLET PO (10:17)
[2020-11-06] MEDS: Metoprolol Tartrate 100 MG TABLET PO ×2 (10:30→21:00)
[2020-11-06] MEDS: Enalapril Maleate 10 MG TABLET 20 MG PO ×2 (10:31→21:00)
[2020-11-06] MEDS: Insulin Lispro 100 UNIT/ML 3 ML VIAL SUBCUT ×3 (10:37→21:02)
[2020-11-06 12:11] LABS: Glucose, Whole Blood 401 mg/dL (60-115)
[2020-11-06 12:11] LABS: Glucose, Whole Blood 367 mg/dL (60-115)
[2020-11-06 16:38] LABS: Glucose, Whole Blood 406 mg/dL (60-115)
[2020-11-06] MEDS: HYDROmorphone HCl 1 MG/ML SYRINGE IVPUSH (19:31)
[2020-11-06] MEDS: diphenhydrAMINE HCL 25 MG TABLET PO (19:31)
[2020-11-06 20:30] LABS: Glucose, Whole Blood 286 mg/dL (60-115)
[2020-11-06] MEDS: Insulin Glargine,Hum.rec.anlog 100 UNIT/ML 10 ML VIAL 47 UNIT SUBCUT (21:03)
[2020-11-07] VITALS (9 sets, daily range): BP systolic 145–197; BP diastolic 59–84; PULSE 66–84; RESP 16–20; TEMP 36.3–37; O2SAT 90–96; BMI 39.3
--- NOTE | 2020-11-07 | ECG_ITS ---
Test Reason : CHECK QTC Blood Pressure : / mmHG Vent. Rate : 069 BPM Atrial Rate : 069 BPM P-R Int : 152 ms QRS Dur : 080 ms QT Int : 452 ms P-R-T Axes : 063 060 066 degrees QTc Int : 484 ms Normal sinus rhythm Nonspecific ST abnormality Abnormal ECG When compared with ECG of 05-NOV-2020 19:41, No significant change was found Referred By: Genny Sanchez Electronically Signed By:SANJEEV CHRIS
[2020-11-07] MEDS: Heparin Sodium,Porcine 5,000 UNIT/ML VIAL 5000 UNIT SUBCUT ×3 (00:19→23:24)
[2020-11-07] MEDS: HYDROmorphone HCl 1 MG/ML SYRINGE IVPUSH ×5 (00:19→21:19)
[2020-11-07] MEDS: Lactated Ringers 1,000 ML 200 ML IVCONT ×5 (00:19→21:22)
[2020-11-07 07:48] LABS: Glucose, Whole Blood 186 mg/dL (60-115)
[2020-11-07] MEDS: Enalapril Maleate 10 MG TABLET 20 MG PO ×2 (07:48→21:18)
[2020-11-07] MEDS: Metoprolol Tartrate 100 MG TABLET PO ×2 (07:49→21:18)
[2020-11-07] MEDS: oxyCODONE HCl Immed Release 5 MG TABLET 10 MG PO (07:49)
[2020-11-07] MEDS: Gabapentin 300 MG CAPSULE PO (07:49)
[2020-11-07] MEDS: Atorvastatin Calcium 40 MG TABLET PO (07:49)
[2020-11-07] MEDS: amLODIPine Besylate 10 MG TABLET PO (07:50)
[2020-11-07] MEDS: Furosemide 40 MG TABLET PO (07:50)
--- NOTE | 2020-11-07 08:19 | HO.PM.IMPN ---
Subjective Subjective Date of Service: 11/08/20 <Genny Sanchez NP - Last Filed: 11/08/20 15:16> 11/08/20 <Edgardo Cruz MD - Last Filed: 11/08/20 17:46> Interval History: Follow up for pancreatitis. Pain was better last night but seems to be worse this morning. Also with diarrhea today. <Genny Sanchez NP - Last Filed: 11/08/20 15:16> Physical Exam Vital Signs: Vital Signs: Last Vital Signs Temp 97.9 F 11/07/20 07:26 Pulse 76 11/07/20 07:26 Resp 18 11/07/20 07:26 BP 165/81 H 11/07/20 07:26 Pulse Ox 95 11/07/20 07:26 Body Mass Index 39.3 <Genny Sanchez NP - Last Filed: 11/08/20 15:16> Appearing in mild pain distress head is normocephalic atraumatic eyes pupils are PERRLA sclera is anicteric mouth throat mucous membranes are intact and moist lung sounds are clear to auscultation heart regular rate rhythm positive bowel sounds, abdomen is tender neuro patient is alert x3, no focal deficits <Genny Sanchez NP - Last Filed: 11/08/20 15:16> Objective Data Current Medications Generic Name Dose Route Start Last Admin Trade Name Freq PRN Reason Stop Dose Admin Acetaminophen 650 mg 11/06/20 00:06 Acetaminophen 325 Mg Tablet PO Q6H PRN Pain, Mild (Pain Scale 1-3) Albuterol Sulfate 1 - 2 puff 11/06/20 06:13 Albuterol Sulfate 90 Mcg 8 Gm Inhaler INHALE Q4H PRN Shortness Of Breath Or Wheezin Amlodipine Besylate 10 mg 11/06/20 09:00 11/07/20 07:50 Amlodipine Besylate 10 Mg Tablet PO 10 mg DAILY ALYSSA Administration Protocol Atorvastatin Calcium 40 mg 11/06/20 09:00 11/07/20 07:49 Atorvastatin Calcium 40 Mg Tablet PO 40 mg DAILY ALYSSA Administration Docusate Sodium 100 mg 11/06/20 00:06 Docusate Sodium 100 Mg Capsule PO DAILY PRN Constipation Enalapril Maleate 20 mg 11/06/20 09:00 11/07/20 07:48 Enalapril Maleate 10 Mg Tablet PO 20 mg BID ALYSSA Administration Fentanyl 25 mcg 11/06/20 07:00 11/06/20 07:19 Fentanyl 25 Mcg Patch.Td72 TRANSDERMA 25 mcg Q3D ALYSSA Administration Furosemide 40 mg 11/06/20 09:00 11/07/20 07:50 Furosemide 40 Mg Tablet PO 40 mg DAILY [facility] Administration Protocol Gabapentin 300 mg 11/06/20 06:13 11/07/20 07:49 Gabapentin 300 Mg Capsule PO 300 mg BID PRN Administration pain Heparin Sodium (Porcine) 5,000 unit 11/06/20 00:06 11/07/20 00:19 Heparin Sodium,Porcine 5,000 Unit/Ml Vial SUBCUT 5,000 unit Q12H ALYSSA Administration Hydromorphone HCl 1 mg 11/06/20 14:38 11/07/20 04:17 Hydromorphone Hcl 1 Mg/Ml Syringe IVPUSH 1 mg Q4H PRN Administration Pain, Severe (Pain Scale 7-10) Lactated Ringer's 1,000 mls @ 200 mls/hr 11/06/20 00:06 11/07/20 05:21 Lr IVCONT 200 mls/hr .Q5H ALYSSA Administration Insulin Glargine 47 unit 11/06/20 09:00 11/06/20 21:03 Insulin Glargine,Hum.Rec.Anlog 100 Unit/Ml 10 Ml Vial SUBCUT 47 unit BID ALYSSA Administration Insulin Human Lispro 0 unit 11/06/20 07:30 11/06/20 21:02 Insulin Lispro 100 Unit/Ml 3 Ml Vial SUBCUT 6 unit QIDACHS [facility] Administration Protocol Lisinopril 10 mg 11/06/20 09:00 11/07/20 07:49 Lisinopril 10 Mg Tablet PO 10 mg DAILY [facility] Administration Protocol Metoprolol Tartrate 100 mg 11/06/20 09:00 11/07/20 07:49 Metoprolol Tartrate 100 Mg Tablet PO 100 mg BID [facility] Administration Protocol Non-Formulary Medication 145 mg 11/06/20 09:00 Fenofibrate Nanocrystallized PO DAILY [facility] Lansoprazole 30 Mg 30 each 11/06/20 09:00 Cap PO BID [facility] Oxycodone HCl 10 mg 11/06/20 16:00 11/07/20 07:49 Oxycodone Hcl Immed Release 5 Mg Tablet PO 10 mg Q6H PRN Administration Pain Sodium Chloride 3 ml 11/06/20 00:06 11/07/20 07:50 0.9 % Sodium Chloride Flush 3 Ml Syringe IVFLUSH Not Given QSHIFT ALYSSA <Genny Sanchez NP - Last Filed: 11/08/20 15:16> Labs CBC & Chem 7: : 11/08/20 05:40 11/08/20 05:40 <Genny Sanchez NP - Last Filed: 11/08/20 15:16> Assessment and Plan (1) Acute pancreatitis: Status: Acute <Genny Sanchez NP - Last Filed: 11/08/20 15:16> (2) Hypertensive urgency: Status: Acute <Genny Sanchez NP - Last Filed: 11/08/20 15:16> (3) Acute hyperglycemia: Status: Acute <Genny Sanchez NP - Last Filed: 11/08/20 15:16> Assessment and Plan: 65-year-old female with history of diabetes, hypertension, recurrent pancreatitis who presents to the hospital with abdominal pain found to have acute pancreatitis # Acute pancreatitis-Still with moderate amount of pain - most likely secondary to pancreas divisum - patient is status post cholecystectomy, does not drink alcohol regularly, and her triglycerides are less than 1000 although still elevated at 700 - Continue IV Fluid - NPO, will hold diet for now as she still has quite a bit of pain. Advance as tolerated - pain control with Dilaudid and oxycodone #Diarrhea - Likely secondary to pancreatitis - Continue aggressive IV fluids - No recent antibiotics # Hypertensive urgency-Resolved - Continue Norvasc, Metoprolol, add Lisinopril - monitor BP # Diabetes mellitus-NPO - Sliding scale - will stop morning Lantus and decrease evening lantus by 50% # Prolonged QT - Possibly secondary to home meds - avoid QT prolonging medications - Repeat ECG Attending Dr. Cruz <Genny Sanchez NP - Last Filed: 11/08/20 15:16>
[2020-11-07] MEDS: Insulin Lispro 100 UNIT/ML 3 ML VIAL SUBCUT ×3 (08:57→17:25)
[2020-11-07 09:55] LABS: Lipase 311 U/L (8-78)
--- NOTE | 2020-11-07 10:10 | MHC.CM.PN ---
PATIENT LIVES WITH HER SPOUSE/HCP. COPY REQUESTED. SHE OCCASIONALLY USES A CANE. ALTHOUGH SHE IS ABLE TO DRIVE, HER SPOUSE PROVIDES TRANSPORTATION FOR HER. NO VNA OR SERVICES IN THE HOME. IMM 11/07 IN CHART.
[2020-11-07] MEDS: diphenhydrAMINE HCL 25 MG TABLET PO (10:39)
[2020-11-07 12:16] LABS: Glucose, Whole Blood 214 mg/dL (60-115)
[2020-11-07] MEDS: 0.9 % Sodium Chloride Flush 3 ML SYRINGE IVFLUSH (16:19)
[2020-11-07 16:42] LABS: Glucose, Whole Blood 176 mg/dL (60-115)
--- NOTE | 2020-11-07 20:22 | PM.EVENT ---
Event Note Date of Service: 11/07/20 Event Note: I saw and examined the patient and participated in the dee portion of the E/M service. I agree with the assessment and plan as outlined above. Patient is here with acute pancreatitis. Lipase level is improving. Still has some tenderness. Continue pain management, advance diet as tolerated
[2020-11-07 21:02] LABS: Glucose, Whole Blood 131 mg/dL (60-115)
[2020-11-07] MEDS: Insulin Glargine,Hum.rec.anlog 100 UNIT/ML 10 ML VIAL 24 UNIT SUBCUT (21:29)
[2020-11-08] VITALS (13 sets, daily range): BP systolic 142–178; BP diastolic 60–84; PULSE 67–720; RESP 18–22; TEMP 36.3–36.7; O2SAT 93–96
[2020-11-08] MEDS: HYDROmorphone HCl 1 MG/ML SYRINGE IVPUSH ×6 (00:51→22:54)
[2020-11-08] MEDS: Lactated Ringers 1,000 ML 200 ML IVCONT ×3 (02:23→14:08)
[2020-11-08] MEDS: oxyCODONE HCl Immed Release 5 MG TABLET 10 MG PO ×2 (03:36→20:37)
[2020-11-08 05:53] LABS: MANUAL DIFF FLAG NO
[2020-11-08 06:04] LABS: Basophils Absolute Auto 0.1 X10*3/uL (0.0-0.2); Basophils Percent Auto 0.7 % (0-2); Eosinophils Absolute Auto 0.3 X10*3/uL (0.0-0.4); Eosinophils Percent Auto 3.6 % (0-4); Hematocrit 32.9 % (37-47); Hemoglobin 10.9 g/dl (12.0-16.0); Imm Gran Abs Auto 0.02 X10*3/uL (0.00-0.03); Imm Gran Pct Auto 0.3 % (0.0-0.4); Lymphocytes Absolute Auto 1.6 X10*3/uL (1.2-4.9); Lymphocytes Percent Auto 21.9 % (20-40); Mean Corpuscular HGB Conc 33.1 g/dl (31.0-35.0); Mean Corpuscular Hemoglobin 29.7 pg (27.0-33.0); Mean Corpuscular Volume 89.6 fL (80-98); Mean Platelet Volume 11.8 fL (9.4-12.3); Monocytes Absolute Auto 0.5 X10*3/uL (0.1-1.2); Monocytes Percent Auto 6.8 % (2-11); Neutrophils Absolute Auto 4.9 X10*3/uL (2.0-8.3); Neutrophils Percent Auto 66.7 % (45-73); Platelet Count 222 X10*3/uL (160-400); Red Blood Count 3.67 X10*6/uL (4.20-5.50); Red Cell Distribution Width 13.1 % (11.0-16.0); White Blood Count 7.3 X10*3/uL (4.8-10.8)
[2020-11-08 06:25] LABS: Anion Gap 10 (12-20); Blood Urea Nitrogen 10 mg/dL (9-16); Calcium 8.3 mg/dL (8.4-10.2); Carbon Dioxide 27 mmol/L (22-29); Chloride 103 mmol/L (96-108); Creatinine Clr Calc Pharmacy 94.3; Estimated Glomerular Filt Rate > 60; Glucose Random 122 mg/dL (60-115); Potassium 3.3 mmol/L (3.3-5.1); Sodium 137 mmol/L (135-145)
[2020-11-08] MEDS: ondansetron HCL 4 MG/2 ML VIAL IVPUSH (06:31)
[2020-11-08 07:46] LABS: Glucose, Whole Blood 105 mg/dL (60-115)
[2020-11-08] MEDS: amLODIPine Besylate 10 MG TABLET PO (08:11)
[2020-11-08] MEDS: Furosemide 40 MG TABLET PO (08:12)
[2020-11-08] MEDS: Metoprolol Tartrate 100 MG TABLET PO ×2 (08:12→20:36)
[2020-11-08] MEDS: Enalapril Maleate 10 MG TABLET 20 MG PO ×2 (08:13→20:37)
[2020-11-08] MEDS: Fenofibrate 160 MG TABLET PO (08:14)
[2020-11-08] MEDS: 0.9 % Sodium Chloride Flush 3 ML SYRINGE IVFLUSH ×2 (08:14→17:21)
[2020-11-08] MEDS: Atorvastatin Calcium 40 MG TABLET PO (08:14)
--- NOTE | 2020-11-08 10:51 | P.DS_ITS ---
DS: Providers Provider Date of Service: 11/13/20 <Genny Sanchez NP - Last Filed: 11/13/20 14:08> 11/13/20 <Henry Varela MD - Last Filed: 11/13/20 16:11> Date of admission: 11/05/20 23:27 <Genny Sanchez NP - Last Filed: 11/13/20 14:08> Date of discharge: 11/13/20 <Genny Sanchez NP - Last Filed: 11/13/20 14:08> Primary care physician: Armando Holloway MD <Genny Sanchez NP - Last Filed: 11/13/20 14:08> Admitting clinician: Justen Baltazar <Genny Sanchez NP - Last Filed: 11/13/20 14:08> Attending physician on admission: Justen Baltazar <Genny Sanchez NP - Last Filed: 11/13/20 14:08> Attending physician on discharge: Henry Varela <Genny Sanchez NP - Last Filed: 11/13/20 14:08> Discharging clinician: Genny Sanchez <Genny Sanchez NP - Last Filed: 11/13/20 14:08> DS: Diagnosis Discharge Diagnosis (1) Acute pancreatitis: Status: Acute <Genny Sanchez NP - Last Filed: 11/13/20 14:08> (2) Hypertensive urgency: Status: Resolved <Genny Sanchez NP - Last Filed: 11/13/20 14:08> (3) Acute hyperglycemia: Status: Resolved <Genny Sanchez NP - Last Filed: 11/13/20 14:08> (4) C. difficile colitis: Status: Acute <Genny Sanchez NP - Last Filed: 11/13/20 14:08> Problem details: She is having diarrhea Cdiff is positive and she wishes not to use Vancomycin due to presumed allergy <Genny Sanchez NP - Last Filed: 11/13/20 14:08> DS: Medications Discharge Medications Home Medications: Home Medications Medication Instructions Recorded Confirmed albuterol sulfate 90 mcg/actuation 1 - 2 puff INHALATION Q4-6H PRN 08/17/20 11/06/20 aerosol inhaler amlodipine 10 mg tablet 10 mg PO DAILY 08/17/20 11/06/20 atorvastatin 40 mg tablet 40 mg PO DAILY 08/17/20 11/06/20 enalapril maleate 20 mg tablet 20 mg PO BID 08/17/20 11/06/20 fenofibrate nanocrystallized 145 145 mg PO DAILY 08/17/20 11/06/20 mg tablet fentanyl 25 mcg/hr transdermal 1 patch TOPICAL Q3D 08/17/20 11/06/20 patch furosemide 40 mg tablet 40 mg PO DAILY 08/17/20 11/06/20 gabapentin 300 mg capsule 300 mg PO BID PRN 08/17/20 11/06/20 insulin detemir U-100 100 unit/mL 91 unit SUBCUT BID ml 08/17/20 11/06/20 subcutaneous solution insulin lispro 100 unit/mL See Rx Instructions .ROUTE 08/17/20 11/06/20 subcutaneous pen .COMPLEX ml lansoprazole 30 mg capsule,delayed 30 mg PO BID 08/17/20 11/06/20 release metoprolol tartrate 100 mg tablet 100 mg PO BID 08/17/20 11/06/20 oxycodone 10 mg tablet 10 mg PO QID PRN 08/17/20 11/06/20 pen needle, diabetic 31 gauge x #1200 ea 08/17/20 08/17/20 5/16 <Genny Sanchez NP - Last Filed: 11/13/20 14:08> DS: Summary Hospital Course Hospital Course: HP as per admitting provider This is a 65-year-old female with past medical history of pancreatitis, hypertension, diabetes, cervical cancer status post hysterectomy, HLD who presents to the hospital with complaints of epigastric abdominal pain radiating to the back. Patient reports that she has a history of pancreas divisum and gets pancreatitis very frequently last episode 2 years ago. Patient has 10/10 pain, radiating to the back, associated with nausea vomiting, constant, relieved by pain medication, no exacerbating factors. The pain started at known on the day of presentation. Patient otherwise denies any chest pain, palpitations, chronic shortness of breath, no diarrhea or constipation, no urinary symptoms and no lower extremity edema. No weakness numbness or tingling. Patient reports that she missed her blood pressure medications today due to the nausea vomiting and abdominal pain. On arrival to the ED patient hypertensive with blood pressure of 209/88, increased to 249 over 99, patient's of metoprolol IV with blood pressure improving to 190s over 80s. Labs are significant for WBC count of 14, glucose of 360, total bili of 1.1, direct of 0.4, AST of 35, ALT of 28, lipase of 16 15. Abdominal CTs shows diffuse peripancreatic stranding suggestive of acute pancr eatitis. Hepatic steatosis. Past medical history as below in regards to her alcohol use patient denies using any alcohol . Pancreatitis. Thought to be related to pancreas divisum. No alcohol use, Tr iglycerides 786, Lipase initially 1615 down to 74. Treated with Aggressive IV fluid hydration, pain management. Diet advanced with no worsening of pain. Seen by Gastroenterology. Cdiff. Course complicated by Cdiff. Diarrhea episodes slowing down. No vancomycin due to presumed allergy. Started on Fidaxomicin to complete 10 days course. Hyperglycemia. No DKA. Needs better control. Lantus was decreased to daily and cut by 50% due to NPO status. Lantus resumed when diet advanced. Continue home dose. Hypertensive Urgency. Poorly controlled blood pressure. Lisinopril and hydralazine added to enalapril and amlodipine. BP improved. Should follow up with PCP for BP management. Continue Amlodipine, Enalopril and Metoprolol at home. Attending: Dr. Varela <Genny Sanchez NP - Last Filed: 11/13/20 14:08> Time Spent with Patient Time attestation: Total time spent providing and/or coordinating discharge services: <Genny Sanchez NP - Last Filed: 11/13/20 14:08> Discharge coordination time: Greater than 30 minutes <Genny Sanchez NP - Last Filed: 11/13/20 14:08> Physical Exam Vital Signs: Vital Signs: Last Vital Signs Temp 97.9 F 11/08/20 07:20 Pulse 720 H 11/08/20 08:13 Resp 22 H 11/08/20 07:20 BP 173/84 H 11/08/20 08:13 Pulse Ox 93 11/08/20 07:20 Body Mass Index 39.3 <Genny Sanchez NP - Last Filed: 11/13/20 14:08> Appearing in no acute distress head is normocephalic atraumatic eyes pupils are PERRLA sclera is anicteric mouth throat mucous membranes are intact and moist neck is supple no lymphadenopathy, no JVD noted lung sounds are clear to auscultation heart regular rate rhythm, clear S1, S2 positive bowel sounds, abdomen is soft, nontender neuro patient is alert x3, no focal deficits <Genny Sanchez NP - Last Filed: 11/13/20 14:08> DS: Data Data Completed and Pending Labs on day of discharge: Laboratory Results - last 24 hr 11/07/20 11/07/20 11/07/20 11:38 16:18 20:38 WBC RBC Hgb Hct MCV MCH MCHC RDW Plt Count MPV Immature Gran % (Auto) Neut % (Auto) Lymph % (Auto) [place] % (Auto) Eos % (Auto) Baso % (Auto) Lymph # (Auto) [place] # (Auto) Eos # (Auto) Baso # (Auto) Abs Immat Gran (auto) Absolute Neuts (auto) Absolute Nucleated RBC Nucleated RBC % (auto) Sodium Potassium Chloride Carbon Dioxide Anion Gap BUN Creatinine Estim Creat Clear Calc Estimated GFR POC Glucose 214 H 176 H 131 H Random Glucose Calcium 11/08/20 11/08/20 11/08/20 05:40 05:40 07:19 WBC 7.3 RBC 3.67 L Hgb 10.9 L Hct 32.9 L MCV 89.6 MCH 29.7 MCHC 33.1 RDW 13.1 Plt Count 222 MPV 11.8 Immature Gran % (Auto) 0.3 Neut % (Auto) 66.7 Lymph % (Auto) 21.9 [place] % (Auto) 6.8 Eos % (Auto) 3.6 Baso % (Auto) 0.7 Lymph # (Auto) 1.6 [place] # (Auto) 0.5 Eos # (Auto) 0.3 Baso # (Auto) 0.1 Abs Immat Gran (auto) 0.02 Absolute Neuts (auto) 4.9 Absolute Nucleated RBC 0.000 Nucleated RBC % (auto) 0.0 Sodium 137 Potassium 3.3 D Chloride 103 Carbon Dioxide 27 Anion Gap 10 L BUN 10 Creatinine 0.68 Estim Creat Clear Calc 94.3 Estimated GFR > 60 POC Glucose 105 Random Glucose 122 H D Calcium 8.3 L D <Genny Sanchez NP - Last Filed: 11/13/20 14:08> Discharge Plan Discharge Anticipated Discharge Date/Time: 11/13/20 11:08 <Genny Sanchez NP - Last Filed: 11/13/20 14:08> Patient Disposition: Home, Self-Care <Genny Sanchez NP - Last Filed: 11/13/20 14:08> Referrals: Armando Holloway MD [Primary Care Provider] - <Genny Sanchez NP - Last Filed: 11/13/20 14:08> Discharge Medications: New Dificid 200 mg Tablet 200 mg PO Q12H 10 Days Qty: 17 RF: 0 prochlorperazine maleate [Compazine] 5 mg tablet 5 mg PO BID PRN (Reason: nausea and vomiting) Qty: 6 RF: 0 Continued amlodipine 10 mg tablet 10 mg PO DAILY RF: 0 furosemide 40 mg tablet 40 mg PO DAILY RF: 0 fenofibrate nanocrystallized 145 mg tablet 145 mg PO DAILY RF: 0 lansoprazole 30 mg capsule,delayed release(DR/EC) 30 mg PO BID RF: 0 enalapril maleate 20 mg tablet 20 mg PO BID RF: 0 metoprolol tartrate 100 mg tablet 100 mg PO BID RF: 0 atorvastatin 40 mg tablet 40 mg PO DAILY RF: 0 fentanyl 25 mcg/hr patch 72 hour 1 patch topical Q3D RF: 0 (DME) pen needle, diabetic 31 gauge x 5/16 needle See Rx Instructions ea subcut QID Qty: 1200 RF: 0 oxycodone 10 mg tablet 10 mg PO QID PRN (Reason: Pain) RF: 0 gabapentin 300 mg capsule 300 mg PO BID PRN (Reason: pain) RF: 0 insulin detemir U-100 100 unit/mL solution 91 unit subcut BID RF: 0 albuterol sulfate 90 mcg/actuation HFA aerosol inhaler 1 - 2 puff inhalation Q4-6H PRN (Reason: Shortness Of Breath Or Wheezing) RF: 0 insulin lispro 100 unit/mL insulin pen See Rx Instructions .ROUTE .COMPLEX RF: 0 <Genny Sanchez NP - Last Filed: 11/13/20 14:08> Discharge Orders: Discharge Order (Routine); Ordered 11/13/20 Ordered By: Genny Sanchez <Genny Sanchez NP - Last Filed: 11/13/20 14:08> Diet: advance to usual diet <Genny Sanchez NP - Last Filed: 11/13/20 14:08> advance to usual diet <Henry Varela MD - Last Filed: 11/13/20 16:11> Activity on Discharge: As tolerated <Genny Sanchez NP - Last Filed: 11/13/20 14:08> As tolerated <Henry Varela MD - Last Filed: 11/13/20 16:11> Stand Alone Forms: Patient Portal Discharge page <Genny Sanchez NP - Last Filed: 11/13/20 14:08> Care Plan Goals: No rehospitalizations due to abdominal pain Full recovery from clostridioides difficile <Genny Sanchez NP - Last Filed: 11/13/20 14:08> Health Concerns: Better diabetes and blood pressure control. <Genny Sanchez NP - Last Filed: 11/13/20 14:08> Plan of Treatment: Follow up with primary care provider or [employer] for worsening or continuing diarrhea Continue Fidaxomicin for a total of 10 days for clostridioides difficile. <Genny Sanchez NP - Last Filed: 11/13/20 14:08> Discharge Date/Time: 11/13/20 12:35 <Genny Sanchez NP - Last Filed: 11/13/20 14:08>
--- NOTE | 2020-11-08 11:33 | PC.NURSE ---
Pt was put on a clear liquid diet this morning. Less nausea this morning. Tolerating her clear liquid diet. Had prn Dilaudid at 9:45am with good effecting. States that pain is 6/10.
[2020-11-08 11:39] LABS: Glucose, Whole Blood 152 mg/dL (60-115)
[2020-11-08] MEDS: Heparin Sodium,Porcine 5,000 UNIT/ML VIAL 5000 UNIT SUBCUT (12:01)
[2020-11-08] MEDS: Insulin Lispro 100 UNIT/ML 3 ML VIAL SUBCUT (12:02)
--- NOTE | 2020-11-08 12:39 | MHC.CM.PN ---
Addendum entered by Padma Valle RN 11/08/20 16:22: NO D/C ORDER IN PLACE, PT STILL C/O PAIN, POSSIBLE D/C 11/09/20, NO CHANGE TO PLAN Original Note: PT DISCHARGING HOME SELF-CARE W/FAMILY FOR TRANSPORT.
--- NOTE | 2020-11-08 15:09 | HO.PM.IMPN ---
Subjective Subjective Date of Service: 11/08/20 <Genny Sanchez NP - Last Filed: 11/08/20 15:14> 11/08/20 <Edgardo Cruz MD - Last Filed: 11/08/20 17:46> Interval History: Follow up for pancreatitis, better but still with pain. <Genny Sanchez NP - Last Filed: 11/08/20 15:14> Physical Exam Vital Signs: Vital Signs: Last Vital Signs Temp 97.7 F 11/08/20 11:34 Pulse 70 11/08/20 11:34 Resp 18 11/08/20 11:34 BP 142/76 H 11/08/20 11:34 Pulse Ox 95 11/08/20 11:34 Body Mass Index 39.3 <Genny Sanchez NP - Last Filed: 11/08/20 15:14> Appearing in no acute distress, sitting on the side of the bed head is normocephalic atraumatic lung sounds are clear to auscultation heart regular rate rhythm, clear S1, S2 positive bowel sounds, abdomen mildly tender neuro patient is alert x3, no focal deficits <Genny Sanchez NP - Last Filed: 11/08/20 15:14> Objective Data Current Medications Generic Name Dose Route Start Last Admin Trade Name Freq PRN Reason Stop Dose Admin Acetaminophen 650 mg 11/06/20 00:06 Acetaminophen 325 Mg Tablet PO Q6H PRN Pain, Mild (Pain Scale 1-3) Albuterol Sulfate 1 - 2 puff 11/06/20 06:13 Albuterol Sulfate 90 Mcg 8 Gm Inhaler INHALE Q4H PRN Shortness Of Breath Or Wheezin Amlodipine Besylate 10 mg 11/06/20 09:00 11/08/20 08:11 Amlodipine Besylate 10 Mg Tablet PO 10 mg DAILY ALYSSA Administration Protocol Atorvastatin Calcium 40 mg 11/06/20 09:00 11/08/20 08:14 Atorvastatin Calcium 40 Mg Tablet PO 40 mg DAILY ALYSSA Administration Docusate Sodium 100 mg 11/06/20 00:06 Docusate Sodium 100 Mg Capsule PO DAILY PRN Constipation Enalapril Maleate 20 mg 11/06/20 09:00 11/08/20 08:13 Enalapril Maleate 10 Mg Tablet PO 20 mg BID ALYSSA Administration Fenofibrate 160 mg 11/08/20 09:00 11/08/20 08:14 Fenofibrate 160 Mg Tablet PO 160 mg DAILY ALYSSA Administration Fentanyl 25 mcg 11/06/20 07:00 11/06/20 07:19 Fentanyl 25 Mcg Patch.Td72 TRANSDERMA 25 mcg Q3D ALYSSA Administration Furosemide 40 mg 11/06/20 09:00 11/08/20 08:12 Furosemide 40 Mg Tablet PO 40 mg DAILY ALYSSA Administration Protocol Gabapentin 300 mg 11/08/20 21:00 Gabapentin 300 Mg Capsule PO BEDTIME ALYSSA Heparin Sodium (Porcine) 5,000 unit 11/06/20 00:06 11/08/20 12:01 Heparin Sodium,Porcine 5,000 Unit/Ml Vial SUBCUT 5,000 unit Q12H LAYSSA Administration Hydromorphone HCl 1 mg 11/06/20 14:38 11/08/20 14:04 Hydromorphone Hcl 1 Mg/Ml Syringe IVPUSH 1 mg Q4H PRN Administration Pain, Severe (Pain Scale 7-10) Lactated Ringer's 1,000 mls @ 200 mls/hr 11/06/20 00:06 11/08/20 14:08 Lr IVCONT 200 mls/hr .Q5H ALYSSA Administration Insulin Glargine 24 unit 11/07/20 21:00 11/07/20 21:29 Insulin Glargine,Hum.Rec.Anlog 100 Unit/Ml 10 Ml Vial SUBCUT 24 unit BEDTIME ALYSSA Administration Insulin Human Lispro 0 unit 11/06/20 07:30 11/08/20 12:02 Insulin Lispro 100 Unit/Ml 3 Ml Vial SUBCUT 2 unit QIDACHS [facility] Administration Protocol Lisinopril 10 mg 11/06/20 09:00 11/08/20 08:13 Lisinopril 10 Mg Tablet PO 10 mg DAILY ALYSSA Administration Protocol Metoprolol Tartrate 100 mg 11/06/20 09:00 11/08/20 08:12 Metoprolol Tartrate 100 Mg Tablet PO 100 mg BID [facility] Administration Protocol Lansoprazole 30 Mg 30 each 11/06/20 09:00 Cap PO BID ALYSSA Oxycodone HCl 10 mg 11/06/20 16:00 11/08/20 03:36 Oxycodone Hcl Immed Release 5 Mg Tablet PO 10 mg Q6H PRN Administration Pain Sodium Chloride 3 ml 11/06/20 00:06 11/08/20 08:14 0.9 % Sodium Chloride Flush 3 Ml Syringe IVFLUSH 3 ml QSHIFT ALYSSA Administration <Genny Sanchez NP - Last Filed: 11/08/20 15:14> Labs CBC & Chem 7: : 11/08/20 05:40 11/08/20 05:40 <Genny Sanchez NP - Last Filed: 11/08/20 15:14> Assessment and Plan (1) Acute pancreatitis: Status: Acute <Genny Sanchez NP - Last Filed: 11/08/20 15:14> (2) Hypertensive urgency: Status: Acute <Genny Sanchez NP - Last Filed: 11/08/20 15:14> (3) Acute hyperglycemia: Status: Acute <Genny Sanchez NP - Last Filed: 11/08/20 15:14> Assessment and Plan: 65-year-old female with history of diabetes, hypertension, recurrent pancreatitis who presents to the hospital with abdominal pain found to have acute pancreatitis # Acute pancreatitis-Pain better. - most likely secondary to pancreas divisum - patient is status post cholecystectomy, does not drink alcohol regularly, and her triglycerides are less than 1000 although still elevated at 700 - Stop IV Fluid - ADA diet - pain control with Dilaudid and oxycodone #Diarrhea. Improved - Likely secondary to pancreatitis - No recent antibiotics # Hypertensive urgency-Resolved - Continue Norvasc, Metoprolol, add Lisinopril - monitor BP # Diabetes mellitus-NPO - Sliding scale - Resume lantus when she is tolerating diet fully # Prolonged QT - Possibly secondary to home meds - avoid QT prolonging medications - Repeat ECG Attending Dr. Cruz <Genny Sanchez NP - Last Filed: 11/08/20 15:14>
[2020-11-08 16:09] LABS: Glucose, Whole Blood 128 mg/dL (60-115)
[2020-11-08] MEDS: Loperamide HCl 2 MG CAPSULE PO (17:21)
--- NOTE | 2020-11-08 18:17 | PC.NURSE ---
Pt c/o abdominal pain /10 after lunch. Also had three episodes of loose stools. BP hypertensive at 5:30pm at 189/73, assessed pt to be asymptomatic. Notified provider. Order for prn loperamide 2mg given. IV fluids LR DC'd. New order for hydralizine 25mg TID, Last prn Dilaudid given at 6:20pm. Will continue to monitor pt status and VS.
[2020-11-08 18:47] LABS: Lipase 162 U/L (8-78)
[2020-11-08 20:11] LABS: Glucose, Whole Blood 137 mg/dL (60-115)
[2020-11-08] MEDS: hydrALAZINE HCl 25 MG TABLET PO (20:36)
[2020-11-08] MEDS: Gabapentin 300 MG CAPSULE PO (20:36)
[2020-11-08] MEDS: Insulin Glargine,Hum.rec.anlog 100 UNIT/ML 10 ML VIAL 24 UNIT SUBCUT (20:38)
[2020-11-09] VITALS (10 sets, daily range): BP systolic 145–179; BP diastolic 65–76; PULSE 63–75; RESP 16–20; TEMP 36–36.9; O2SAT 92–100
[2020-11-09] MEDS: Heparin Sodium,Porcine 5,000 UNIT/ML VIAL 5000 UNIT SUBCUT ×3 (00:29→23:52)
[2020-11-09] MEDS: 0.9 % Sodium Chloride Flush 3 ML SYRINGE IVFLUSH ×4 (00:29→23:55)
[2020-11-09] MEDS: HYDROmorphone HCl 1 MG/ML SYRINGE IVPUSH ×5 (04:03→23:55)
[2020-11-09] MEDS: fentaNYL 25 MCG PATCH.TD72 TRANSDERMA (06:36)
[2020-11-09 08:01] LABS: Glucose, Whole Blood 97 mg/dL (60-115)
[2020-11-09] MEDS: Metoprolol Tartrate 100 MG TABLET PO ×2 (08:30→20:33)
[2020-11-09] MEDS: Fenofibrate 160 MG TABLET PO (08:31)
[2020-11-09] MEDS: Atorvastatin Calcium 40 MG TABLET PO (08:31)
[2020-11-09] MEDS: hydrALAZINE HCl 25 MG TABLET PO ×3 (08:31→20:34)
[2020-11-09] MEDS: Furosemide 40 MG TABLET PO (08:31)
[2020-11-09] MEDS: Enalapril Maleate 10 MG TABLET 20 MG PO ×2 (08:31→20:34)
[2020-11-09] MEDS: amLODIPine Besylate 10 MG TABLET PO (08:32)
--- NOTE | 2020-11-09 09:05 | HO.PM.IMPN ---
Subjective Subjective Date of Service: 11/09/20 <Genny Sanchez NP - Last Filed: 11/09/20 12:33> 11/09/20 <Edgardo Cruz MD - Last Filed: 11/09/20 12:43> Interval History: Follow up pancreatitis. Continued pain and diarrhea <Genny Sanchez NP - Last Filed: 11/09/20 12:33> Physical Exam Vital Signs: Vital Signs: Last Vital Signs Temp 98.2 F 11/09/20 07:40 Pulse 72 11/09/20 07:40 Resp 18 11/09/20 07:40 BP 148/65 H 11/09/20 07:40 Pulse Ox 95 11/09/20 07:40 Body Mass Index 39.3 <Genny Sanchez NP - Last Filed: 11/09/20 12:33> Sitting on the edge of the bed lung sounds are clear to auscultation heart regular rate rhythm, clear S1, S2 positive bowel sounds, abdomen tender neuro patient is alert x3, no focal deficits <Genny Sanchez NP - Last Filed: 11/09/20 12:33> Objective Data Current Medications Generic Name Dose Route Start Last Admin Trade Name Freq PRN Reason Stop Dose Admin Acetaminophen 650 mg 11/06/20 00:06 Acetaminophen 325 Mg Tablet PO Q6H PRN Pain, Mild (Pain Scale 1-3) Albuterol Sulfate 1 - 2 puff 11/06/20 06:13 Albuterol Sulfate 90 Mcg 8 Gm Inhaler INHALE Q4H PRN Shortness Of Breath Or Wheezin Amlodipine Besylate 10 mg 11/06/20 09:00 11/09/20 08:32 Amlodipine Besylate 10 Mg Tablet PO 10 mg DAILY ALYSSA Administration Protocol Atorvastatin Calcium 40 mg 11/06/20 09:00 11/09/20 08:31 Atorvastatin Calcium 40 Mg Tablet PO 40 mg DAILY ALYSSA Administration Docusate Sodium 100 mg 11/06/20 00:06 Docusate Sodium 100 Mg Capsule PO DAILY PRN Constipation Enalapril Maleate 20 mg 11/06/20 09:00 11/09/20 08:31 Enalapril Maleate 10 Mg Tablet PO 20 mg BID ALYSSA Administration Fenofibrate 160 mg 11/08/20 09:00 11/09/20 08:31 Fenofibrate 160 Mg Tablet PO 160 mg DAILY ALYSSA Administration Fentanyl 25 mcg 11/06/20 07:00 11/09/20 06:36 Fentanyl 25 Mcg Patch.Td72 TRANSDERMA 25 mcg Q3D ALYSSA Administration Furosemide 40 mg 11/06/20 09:00 11/09/20 08:31 Furosemide 40 Mg Tablet PO 40 mg DAILY [facility] Administration Protocol Gabapentin 300 mg 11/08/20 21:00 11/08/20 20:36 Gabapentin 300 Mg Capsule PO 300 mg BEDTIME ALYSSA Administration Heparin Sodium (Porcine) 5,000 unit 11/06/20 00:06 11/09/20 00:29 Heparin Sodium,Porcine 5,000 Unit/Ml Vial SUBCUT 5,000 unit Q12H ALYSSA Administration Hydralazine HCl 25 mg 11/08/20 21:00 11/09/20 08:31 Hydralazine Hcl 25 Mg Tablet PO 25 mg TID [facility] Administration Protocol Hydromorphone HCl 1 mg 11/06/20 14:38 11/09/20 08:26 Hydromorphone Hcl 1 Mg/Ml Syringe IVPUSH 1 mg Q4H PRN Administration Pain, Severe (Pain Scale 7-10) Insulin Glargine 24 unit 11/07/20 21:00 11/08/20 20:38 Insulin Glargine,Hum.Rec.Anlog 100 Unit/Ml 10 Ml Vial SUBCUT 24 unit BEDTIME [facility] Administration Insulin Human Lispro 0 unit 11/06/20 07:30 11/09/20 08:18 Insulin Lispro 100 Unit/Ml 3 Ml Vial SUBCUT Not Given QIDACHS [facility] Protocol Lisinopril 10 mg 11/06/20 09:00 11/09/20 08:31 Lisinopril 10 Mg Tablet PO 10 mg DAILY [facility] Administration Protocol Loperamide HCl 2 mg 11/08/20 15:52 11/08/20 17:21 Loperamide Hcl 2 Mg Capsule PO 2 mg Q6H PRN Administration Diarrhea Metoprolol Tartrate 100 mg 11/06/20 09:00 11/09/20 08:30 Metoprolol Tartrate 100 Mg Tablet PO 100 mg BID [facility] Administration Protocol Lansoprazole 30 Mg 30 each 11/06/20 09:00 Cap PO BID [facility] Oxycodone HCl 10 mg 11/06/20 16:00 11/08/20 20:37 Oxycodone Hcl Immed Release 5 Mg Tablet PO 10 mg Q6H PRN Administration Pain Sodium Chloride 3 ml 11/06/20 00:06 11/09/20 08:26 0.9 % Sodium Chloride Flush 3 Ml Syringe IVFLUSH 3 ml QSHIFT ALYSSA Administration <Genny Sanchez NP - Last Filed: 11/09/20 12:33> Labs CBC & Chem 7: : 11/08/20 05:40 11/09/20 09:42 <Genny Sanchez NP - Last Filed: 11/09/20 12:33> Assessment and Plan (1) Acute pancreatitis: Status: Resolved <Genny Sanchez NP - Last Filed: 11/09/20 12:33> (2) Hypertensive urgency: Status: Resolved <Genny Sanchez NP - Last Filed: 11/09/20 12:33> (3) Acute hyperglycemia: Status: Resolved <Genny Sanchez NP - Last Filed: 11/09/20 12:33> Assessment and Plan: 65-year-old female with history of diabetes, hypertension, recurrent pancreatitis who presents to the hospital with abdominal pain found to have acute pancreatitis, most likely secondary to pancreas divisum. Patient is status post cholecystectomy, does not drink alcohol regularly, and her triglycerides are less than 1000 although still elevated at 700 # Acute pancreatitis-Still with moderate amount of pain and poor appetite - Consult GI. - diet advanced to full liquids, Not eating much. Encourage oral intake - pain control with Dilaudid and oxycodone - IV fluids stopped #Diarrhea - Immodium - Likely secondary to pancreatitis - No recent antibiotics # Hypertensive urgency-Resolved, although blood pressure remains high - Continue Norvasc, Metoprolol, add Lisinopril - Added hydralazine - monitor BP # Diabetes mellitus-NPO - Sliding scale - will stop morning Lantus and decrease evening lantus by 50% while diet advancing # Prolonged QT - Possibly secondary to home meds - avoid QT prolonging medications - Repeat ECG Attending Dr. Cruz <Genny Sanchez NP - Last Filed: 11/09/20 12:33>
[2020-11-09] MEDS: Loperamide HCl 2 MG CAPSULE PO ×2 (10:25→19:38)
[2020-11-09] MEDS: oxyCODONE HCl Immed Release 5 MG TABLET 10 MG PO ×2 (10:28→21:34)
[2020-11-09 10:55] LABS: Anion Gap 14 (12-20); Blood Urea Nitrogen 10 mg/dL (9-16); Calcium 8.7 mg/dL (8.4-10.2); Carbon Dioxide 27 mmol/L (22-29); Chloride 101 mmol/L (96-108); Creatinine Clr Calc Pharmacy 87.8; Estimated Glomerular Filt Rate > 60; Glucose Random 126 mg/dL (60-115); Magnesium 1.5 mg/dL (1.6-2.6); Potassium 3.6 mmol/L (3.3-5.1); Sodium 138 mmol/L (135-145)
[2020-11-09 11:12] LABS: Lipase 117 U/L (8-78)
[2020-11-09 11:38] LABS: Glucose, Whole Blood 162 mg/dL (60-115)
--- NOTE | 2020-11-09 11:54 | PM.EVENT ---
Event Note Date of Service: 11/09/20 Event Note: GI Consult-Full note dictated. Hx via patient and EMR. Imp: 65 yo female well-known to me with a history of recurrent pancreatitis due to hypertriglyceridemia and component of pancreas divisum. She seems to be slowly improving over the past few days. She still has some abdominal tenderness, although does have some baseline abdominal tenderness at home in general. Her diarrhea after these episodes is not unusual for her. Rec: Supportive care, clear liqs for another 24 hours, F/U labs in AM 3/4, check stool for Cdiff if the diarrhea persists, PPI Rx. I don't think any further imaging of the abdomen is required at this time. D/W patient in detail and she is comfortable with this plan. Thanks
[2020-11-09] MEDS: Insulin Lispro 100 UNIT/ML 3 ML VIAL SUBCUT ×3 (11:59→21:25)
[2020-11-09] MEDS: Magnesium Sulfate/D5W 1 GM/100 ML PIGGYBACK IV (12:01)
[2020-11-09] MEDS: Omeprazole 20 MG CAPSULE.DR PO ×2 (12:14→16:55)
--- NOTE | 2020-11-09 12:29 | MHC.CM.PN ---
EMR REVIEWED, PER MULTIDISCIPLINARY ROUNDS PT CONT'S TO C/O PAIN AND RECEIVE IV PAIN MEDS, PLAN FOR GI CONSULT,NO DISCHARGE PLANNED FOR TODAY. DISCHARGE PLAN: HOME W/NO SERVICES, FAMILY FOR TRANSPORT
--- NOTE | 2020-11-09 13:20 | CONS_ITS ---
DATE OF SERVICE: 11/09/2020 REFERRING PHYSICIAN: Genny Sanchez NP REASON FOR CONSULTATION: Pancreatitis and abdominal pain. HISTORY OF PRESENT ILLNESS: This has been obtained from the patient and the medical record. The patient is a 65-year-old female, well known to me with a long-standing history of pancreatitis on the basis of hypertriglyceridemia and a known history of pancreas divisum. Her last hospitalization for pancreatitis was actually in 2013. Prior to that, she had multiple episodes, some of which were very severe, requiring ICU admissions. She has undergone previous endoscopic and surgical sphincterotomy and sphincteroplasty of the major and minor papilla in [place] for attempted treatment of the pancreas divisum. She has been maintained on medication for the hypertriglyceridemia. I last saw her in 2018 when she underwent an upper endoscopy. This was basically unremarkable. She has been maintained on chronic PPIs for relief of her chronic reflux. The patient reports that she was basically in her usual state of health up until about a day or so before admission when she began having some increasing back and upper abdominal pain. This progressed with associated vomiting, which prompted her ER visit and admission on November 04. Since hospitalization here, she has had some gradual improvement in her discomfort and decrease in her lipase level. She has not shown any worrisome signs such as difficulty breathing or other metabolic abnormalities. She is still having some abdominal pain. She does have some baseline abdominal discomfort at home, but it is still somewhat worse than usual. She has had no further vomiting. She has been having some diarrhea, but without hematochezia nor melena. She denies any urinary symptoms. She does not use any alcohol. MEDICATIONS: At home included albuterol inhaler, amlodipine, atorvastatin, enalapril, fenofibrate, fentanyl patch, furosemide, gabapentin, insulin, lansoprazole, metoprolol, oxycodone p.r.n. Her medications here in the hospital include acetaminophen, amlodipine, atorvastatin, Colace, enalapril, fenofibrate, fentanyl patch, Lasix, gabapentin, subcu heparin, hydralazine, Dilaudid p.r.n., insulin, loperamide p.r.n., lisinopril, magnesium, Zofran, oxycodone. PAST MEDICAL HISTORY: Recurrent episodes of pancreatitis as above in relation to hypertriglyceridemia and history of pancreas divisum. Hypertension. Diabetes mellitus. She had an upper endoscopy in 2018 describing a small hiatal hernia, some gastritis, and some gastric polyps. Colonoscopy in 2017 was unremarkable. Biopsies from the gastroesophageal junction have shown small areas of Ro's mucosa. Gastroesophageal reflux. Pulmonary embolus. She has asthma. Hernia surgery. Endoscopic sphincterotomy and surgical sphincteroplasty of the minor papilla by Dr. Cresencio Clemente at [facility]. SOCIAL HISTORY: She is . She does not smoke nor use any alcohol. FAMILY HISTORY: Noncontributory, although there is a family history of colon cancer. REVIEW OF SYSTEMS: CONSTITUTIONAL: Prior to becoming ill, she had been feeling fairly well at home. SKIN: No rash. No pruritus. CARDIAC: No chest pain. PULMONARY: No cough. No hemoptysis. GASTROINTESTINAL: As above. PHYSICAL EXAMINATION: GENERAL: The patient is a pleasant, alert, comfortable-appearing female, lying in bed, in no distress. SKIN: Warm and dry. Nonjaundiced. HEENT: Anicteric sclerae. NECK: Supple. Moist mucous membranes. CHEST: Clear. ABDOMEN: Soft with somewhat diminished bowel sounds. She does have diffuse tenderness. There is no palpable mass, rebound, nor guarding. LABORATORY DATA: White blood cell count 7.3, which improved from 14.0 on admission. Hemoglobin 10.9, which has dropped from 13.8 on admission. Platelets 222,000. Her differential appears normal. Her labs from today showed normal chemistries and renal function. Calcium 8.7. Lipase is down to 117 from 1615 on November 05. Her LFTs on admission were basically normal. Her CT scan of the abdomen described diffuse stranding around the pancreas consistent with some pancreatitis, but no evidence of any necrosis, pseudocyst, nor abscess. There is no sign of any bowel obstruction nor free air. IMPRESSION: At this point, the patient's pancreatitis appears to be slowly improving as compared to her presenting status several days ago. Based on her clinical history, this seems related to her known hypertriglyceridemia and underlying pancreas divisum. At this point, she does not show any worrisome signs in regard to the pancreatitis. Based on her previous episodes, this seems to be her typical course with some slow improvement as well as some diarrhea. At this point, I do not think any further imaging studies are required as long as things remain as they are and continued to slowly improve. I would continue a clear liquid diet for 24 hours and then slowly try to advance it as tolerated. I have ordered followup laboratories for tomorrow, and I have also ordered a stool for C difficile if her diarrhea persists. I would continue her PPI and otherwise continue supportive care. As long as things remain stable, I do not think she will need any other interventions such as endoscopy. Certainly, if the abdominal symptoms and the abdominal exam worsens, we would then need to consider repeat CAT scan and surgical consultation. This has been discussed with her in detail. She is comfortable with this plan. Thank you for this consultation. MD LISSA Romero/OLIVIA / [id number]
[2020-11-09 16:25] LABS: Glucose, Whole Blood 169 mg/dL (60-115)
[2020-11-09] MEDS: Gabapentin 300 MG CAPSULE PO (20:32)
[2020-11-09 20:38] LABS: Glucose, Whole Blood 162 mg/dL (60-115)
[2020-11-09 20:50] LABS: CDIFF Ag Positive (Negative); CDiff Toxin Negative (Negative)
[2020-11-09 20:51] LABS: CDIFF Internal ctrl Dots and bkg OK (V)
[2020-11-09] MEDS: Insulin Glargine,Hum.rec.anlog 100 UNIT/ML 10 ML VIAL 24 UNIT SUBCUT (21:26)
--- NOTE | 2020-11-09 22:52 | PC.NURSE ---
P-BP elevated 179/68,pulse 65 I- dr. Delgado notified of the above E-will monitor
[2020-11-10] VITALS (13 sets, daily range): BP systolic 138–195; BP diastolic 57–79; PULSE 64–84; RESP 16–20; TEMP 36.3–36.9; O2SAT 97–99
[2020-11-10] MEDS: Omeprazole 20 MG CAPSULE.DR PO ×2 (04:38→16:34)
[2020-11-10] MEDS: HYDROmorphone HCl 1 MG/ML SYRINGE IVPUSH ×5 (04:38→22:49)
[2020-11-10 06:06] LABS: MANUAL DIFF FLAG NO
[2020-11-10 06:51] LABS: Basophils Absolute Auto 0.1 X10*3/uL (0.0-0.2); Basophils Percent Auto 0.8 % (0-2); Eosinophils Absolute Auto 0.3 X10*3/uL (0.0-0.4); Eosinophils Percent Auto 4.1 % (0-4); Hematocrit 39.3 % (37-47); Imm Gran Abs Auto 0.03 X10*3/uL (0.00-0.03); Imm Gran Pct Auto 0.4 % (0.0-0.4); Lymphocytes Absolute Auto 1.4 X10*3/uL (1.2-4.9); Mean Corpuscular HGB Conc 33.1 g/dl (31.0-35.0); Mean Corpuscular Hemoglobin 29.1 pg (27.0-33.0); Mean Corpuscular Volume 88.1 fL (80-98); Mean Platelet Volume 12.2 fL (9.4-12.3); Monocytes Absolute Auto 0.5 X10*3/uL (0.1-1.2); Monocytes Percent Auto 6.6 % (2-11); Neutrophils Absolute Auto 5.7 X10*3/uL (2.0-8.3); Neutrophils Percent Auto 71.1 % (45-73); Platelet Count 314 X10*3/uL (160-400); Red Blood Count 4.46 X10*6/uL (4.20-5.50); Red Cell Distribution Width 13.1 % (11.0-16.0)
[2020-11-10 07:16] LABS: Alanine Aminotransferase 26 U/L (0-31); Albumin Level 3.8 g/dL (3.5-5.0); Alkaline Phosphatase 75 U/L (39-117); Aspartate Amino Transferase 36 U/L (5-31); Bilirubin Direct 0.4 mg/dL (0.0-0.5); Blood Urea Nitrogen 10 mg/dL (9-16); Creatinine Clr Calc Pharmacy 85.5; Estimated Glomerular Filt Rate > 60; Glucose Fasting 119 mg/dL (60-99); Lipase 74 U/L (8-78); Total Protein 6.6 g/dL (6.5-8.0)
[2020-11-10 07:58] LABS: Anion Gap 17 (12-20); Carbon Dioxide 23 mmol/L (22-29); Chloride 101 mmol/L (96-108); Potassium 3.2 mmol/L (3.3-5.1); Sodium 138 mmol/L (135-145)
[2020-11-10 08:16] LABS: CDiff Gene PCR POSITIVE (Negative)
[2020-11-10 08:21] LABS: Glucose, Whole Blood 113 mg/dL (60-115)
[2020-11-10] MEDS: Metoprolol Tartrate 100 MG TABLET PO ×2 (09:14→21:57)
[2020-11-10] MEDS: Fenofibrate 160 MG TABLET PO (09:15)
[2020-11-10] MEDS: Atorvastatin Calcium 40 MG TABLET PO (09:16)
[2020-11-10] MEDS: Furosemide 40 MG TABLET PO (09:16)
[2020-11-10] MEDS: hydrALAZINE HCl 25 MG TABLET PO ×2 (09:17→10:12)
[2020-11-10] MEDS: amLODIPine Besylate 10 MG TABLET PO (09:18)
[2020-11-10] MEDS: Enalapril Maleate 10 MG TABLET 20 MG PO ×2 (09:19→21:58)
[2020-11-10] MEDS: metroNIDAZOLE 500 MG TABLET PO ×2 (09:32→18:33)
[2020-11-10] MEDS: Potassium Chloride ER 20 MEQ TAB.ER.PRT PO (09:32)
[2020-11-10] MEDS: 0.9 % Sodium Chloride Flush 3 ML SYRINGE IVFLUSH ×3 (09:34→22:01)
--- NOTE | 2020-11-10 09:46 | HO.PM.IMPN ---
Subjective Subjective Date of Service: 11/10/20 <RODNEY Hernandez - Last Filed: 11/10/20 10:12> 11/10/20 <Edgardo Cruz MD - Last Filed: 11/10/20 18:16> Interval History: f/u admit 11/05 for abdominal pain secondary to pancreatitis pt reports ongoing abdominal pain 7-8/10 in severity, nausea, difficulty tolerating PO Ongoing diarrhea Stool returned c.dif + today <RODNEY Hernandez - Last Filed: 11/10/20 10:12> Review of Systems Review of Systems: Yes all other systems are reviewed and are negative <RODNEY Hernandez - Last Filed: 11/10/20 10:12> Constitutional Constitutional: Denies chills and Denies fever(s) <RODNEY Hernandez - Last Filed: 11/10/20 10:12> Cardiovascular Cardiovascular: Denies chest pain <RODNEY Hernandez - Last Filed: 11/10/20 10:12> Respiratory Respiratory: Denies cough <RODNEY Hernandez - Last Filed: 11/10/20 10:12> Gastrointestinal Gastrointestinal: Reports abdominal pain, Reports diarrhea and Reports nausea <RODNEY Hernandez - Last Filed: 11/10/20 10:12> Physical Exam Vital Signs: Vital Signs: Last Vital Signs Temp 97.3 F 11/10/20 07:20 Pulse 84 11/10/20 09:19 Resp 17 11/10/20 07:20 BP 195/79 H 11/10/20 09:19 Pulse Ox 98 11/10/20 07:20 Body Mass Index 39.3 <RODNEY Hernandez - Last Filed: 11/10/20 10:12> Const: General: cooperative, alert and awake <RODNEY Hernandez - Last Filed: 11/10/20 10:12> Nutritional Appearance: overweight <RODNEY Hernandez - Last Filed: 11/10/20 10:12> Orientation/consciousness: patient oriented x3 <RODNEY Hernandez - Last Filed: 11/10/20 10:12> HENMT: Head: Yes normocephalic and Yes atraumatic <RODNEY Hernandez - Last Filed: 11/10/20 10:12> Eyes: Sclerae: sclerae normal <RODNEY Hernandez - Last Filed: 11/10/20 10:12> Chest: Chest palpation & inspection: normal inspection of the chest <RODNEY Hernandez - Last Filed: 11/10/20 10:12> Resp: Effort & Inspection: normal respiratory effort and no respiratory distress <RODNEY Hernandez - Last Filed: 11/10/20 10:12> Auscultation: clear to auscultation bilaterally <RODNEY Hernandez - Last Filed: 11/10/20 10:12> Cardio: Rate: regular rate <RODNEY Hernandez - Last Filed: 11/10/20 10:12> Rhythm: regular rhythm <RODNEY Hernandez - Last Filed: 11/10/20 10:12> Heart sounds: Murmur heart sound present systolic <RODNEY Hernandez - Last Filed: 11/10/20 10:12> GI: Inspection: No distended <RODNEY Hernandez - Last Filed: 11/10/20 10:12> Palpation (GI): Soft to palpation and Tenderness to palpation present (GI) (primarily epigastric region) <RODNEY Hernandez - Last Filed: 11/10/20 10:12> Skin: General skin exam: no rashes or lesions noted <RODNEY Hernandez - Last Filed: 11/10/20 10:12> Neuro: General: patient oriented x3 <RODNEY Hernandez - Last Filed: 11/10/20 10:12> Cranial nerves: Yes CN's II-XII intact bilaterally and Yes Bilaterally intact EOM present <RODNEY Hernandez - Last Filed: 11/10/20 10:12> Extrem: General: Yes normal to inspection <RODNEY Hernandez - Last Filed: 11/10/20 10:12> Objective Data Current Medications Generic Name Dose Route Start Last Admin Trade Name Freq PRN Reason Stop Dose Admin Acetaminophen 650 mg 11/06/20 00:06 Acetaminophen 325 Mg Tablet PO Q6H PRN Pain, Mild (Pain Scale 1-3) Albuterol Sulfate 1 - 2 puff 11/06/20 06:13 Albuterol Sulfate 90 Mcg 8 Gm Inhaler INHALE Q4H PRN Shortness Of Breath Or Wheezin Amlodipine Besylate 10 mg 11/06/20 09:00 11/10/20 09:18 Amlodipine Besylate 10 Mg Tablet PO 10 mg DAILY ALYSSA Administration Protocol Atorvastatin Calcium 40 mg 11/06/20 09:00 11/10/20 09:16 Atorvastatin Calcium 40 Mg Tablet PO 40 mg DAILY ALYSSA Administration Docusate Sodium 100 mg 11/06/20 00:06 Docusate Sodium 100 Mg Capsule PO DAILY PRN Constipation Enalapril Maleate 20 mg 11/06/20 09:00 11/10/20 09:19 Enalapril Maleate 10 Mg Tablet PO 20 mg BID ALYSSA Administration Fenofibrate 160 mg 11/08/20 09:00 11/10/20 09:15 Fenofibrate 160 Mg Tablet PO 160 mg DAILY ALYSSA Administration Fentanyl 25 mcg 11/06/20 07:00 11/09/20 06:36 Fentanyl 25 Mcg Patch.Td72 TRANSDERMA 25 mcg Q3D ALYSSA Administration Furosemide 40 mg 11/06/20 09:00 11/10/20 09:16 Furosemide 40 Mg Tablet PO 40 mg DAILY ALYSSA Administration Protocol Gabapentin 300 mg 11/08/20 21:00 11/09/20 20:32 Gabapentin 300 Mg Capsule PO 300 mg BEDTIME ALYSSA Administration Heparin Sodium (Porcine) 5,000 unit 11/06/20 00:06 11/09/20 23:52 Heparin Sodium,Porcine 5,000 Unit/Ml Vial SUBCUT 5,000 unit Q12H ALYSSA Administration Hydralazine HCl 50 mg 11/10/20 15:00 Hydralazine Hcl 25 Mg Tablet PO TID ALYSSA Protocol Hydralazine HCl 25 mg 11/10/20 09:43 Hydralazine Hcl 25 Mg Tablet PO 11/10/20 09:44 ONCE ONE Protocol Hydromorphone HCl 1 mg 11/06/20 14:38 11/10/20 09:32 Hydromorphone Hcl 1 Mg/Ml Syringe IVPUSH 1 mg Q4H PRN Administration Pain, Severe (Pain Scale 7-10) Insulin Glargine 24 unit 11/07/20 21:00 11/09/20 21:26 Insulin Glargine,Hum.Rec.Anlog 100 Unit/Ml 10 Ml Vial SUBCUT 24 unit BEDTIME ALYSSA Administration Insulin Human Lispro 0 unit 11/06/20 07:30 11/10/20 08:05 Insulin Lispro 100 Unit/Ml 3 Ml Vial SUBCUT Not Given QIDACHS [facility] Protocol Metoprolol Tartrate 100 mg 11/06/20 09:00 11/10/20 09:14 Metoprolol Tartrate 100 Mg Tablet PO 100 mg BID ALYSSA Administration Protocol Metronidazole 500 mg 11/10/20 10:00 11/10/20 09:32 Metronidazole 500 Mg Tablet PO 500 mg Q8H ALYSSA Administration Lansoprazole 30 Mg 30 each 11/06/20 09:00 Cap PO BID [facility] Omeprazole 20 mg 11/09/20 12:05 11/10/20 04:38 Omeprazole 20 Mg Capsule. PO 20 mg BID@0630,5910 [facility] Administration Oxycodone HCl 10 mg 11/06/20 16:00 11/09/20 21:34 Oxycodone Hcl Immed Release 5 Mg Tablet PO 10 mg Q6H PRN Administration Pain Sodium Chloride 3 ml 11/06/20 00:06 11/10/20 09:34 0.9 % Sodium Chloride Flush 3 Ml Syringe IVFLUSH 3 ml QSHIFT ALYSSA Administration <RODNEY Hernandez - Last Filed: 11/10/20 10:12> Labs CBC & Chem 7: : 11/10/20 05:45 11/10/20 05:45 <RODNEY Hernandez - Last Filed: 11/10/20 10:12> Assessment and Plan (1) Acute pancreatitis: Status: Acute <RODNEY Hernandez - Last Filed: 11/10/20 10:12> Assessment and Plan: This is a 65 year old female with a history of pancreas divism, elevated TG, DM, HTN who presented to the ED with abdominal pain found to have acute pancreatitis, course now complicated by c.dif Acute pancreatitis Still with moderate amount of pain and poor appetite - Has been seen by GI, no further workup unless pain worsens - advance diet to low residue, Not eating much - pain control with Dilaudid and oxycodone in addition to baseline fentanyl patch+ - continue PPI, zofran added c dif Allergy listed to vanco -will start Flagyl day 09/18 -ID consult pending Uncontrolled HTN BP still elevated despite adding hydralazine. Pt asymptomatic - Continue Norvasc, Metoprolol, Enalopril, Lasix - Will increase hydralazine from 25 TID to 50 TID - monitor BP closely Diabetes mellitus POCs under 200. Poor appetite due to pancreatitis. - SSI, POCs - Continue Lantus 24U QHS (Home dose of Insulin 91U BID) Chronic HFpEF ECHO from 09/14/20 shows impaired relaxation -Continue lasix HLD -Continue statin, lofibra Prolonged QT Repeat ekg shows improvement to 484 DVT ppx - heparin This case was discussed with Dr. Cruz <RODNEY Hernandez - Last Filed: 11/10/20 10:12>
--- NOTE | 2020-11-10 10:23 | MHC.CM.PN ---
IMM 3/, EMR REVIEWED, PER HOSPITALIST DIET ADVANCING TODAY, PT POSITIVE FOR CDIF AND WILL NEED 10DAYS OF FLAGYL, ID CONSULT PENDING. DISCHARGE PLAN: HOME W/NO SERVICES, TO TRANSPORT
[2020-11-10 11:18] LABS: Glucose, Whole Blood 195 mg/dL (60-115)
[2020-11-10] MEDS: oxyCODONE HCl Immed Release 5 MG TABLET 10 MG PO ×2 (11:41→19:46)
[2020-11-10] MEDS: Insulin Lispro 100 UNIT/ML 3 ML VIAL SUBCUT ×3 (11:52→21:59)
[2020-11-10] MEDS: Heparin Sodium,Porcine 5,000 UNIT/ML VIAL 5000 UNIT SUBCUT (12:58)
[2020-11-10] MEDS: Nystatin Powder 15 GM BOTTLE 1 APPL TOPICAL ×2 (14:43→22:01)
[2020-11-10] MEDS: hydrALAZINE HCl 25 MG TABLET 50 MG PO ×2 (14:48→21:57)
[2020-11-10 16:27] LABS: Glucose, Whole Blood 203 mg/dL (60-115)
[2020-11-10 20:28] LABS: Glucose, Whole Blood 191 mg/dL (60-115)
[2020-11-10] MEDS: Gabapentin 300 MG CAPSULE PO (21:57)
[2020-11-10] MEDS: Insulin Glargine,Hum.rec.anlog 100 UNIT/ML 10 ML VIAL 24 UNIT SUBCUT (21:59)
[2020-11-11] VITALS (7 sets, daily range): BP systolic 135–176; BP diastolic 50–74; PULSE 66–77; RESP 12–20; TEMP 36.4–37.1; O2SAT 95–98
[2020-11-11] MEDS: Heparin Sodium,Porcine 5,000 UNIT/ML VIAL 5000 UNIT SUBCUT ×3 (01:34→23:51)
[2020-11-11] MEDS: metroNIDAZOLE 500 MG TABLET PO ×2 (01:34→08:16)
[2020-11-11] MEDS: HYDROmorphone HCl 1 MG/ML SYRINGE IVPUSH ×4 (04:59→20:18)
[2020-11-11] MEDS: Omeprazole 20 MG CAPSULE.DR PO ×2 (06:01→16:57)
[2020-11-11 06:10] LABS: MANUAL DIFF FLAG NO
[2020-11-11 06:36] LABS: Anion Gap 16 (12-20); Blood Urea Nitrogen 12 mg/dL (9-16); Calcium 8.9 mg/dL (8.4-10.2); Carbon Dioxide 25 mmol/L (22-29); Chloride 103 mmol/L (96-108); Creatinine Clr Calc Pharmacy 80.2; Estimated Glomerular Filt Rate > 60; Glucose Random 151 mg/dL (60-115); Potassium 3.5 mmol/L (3.3-5.1); Sodium 140 mmol/L (135-145)
[2020-11-11 06:41] LABS: Basophils Percent Auto 0.6 % (0-2); Eosinophils Absolute Auto 0.3 X10*3/uL (0.0-0.4); Eosinophils Percent Auto 4.4 % (0-4); Hematocrit 38.2 % (37-47); Hemoglobin 12.6 g/dl (12.0-16.0); Imm Gran Abs Auto 0.03 X10*3/uL (0.00-0.03); Imm Gran Pct Auto 0.5 % (0.0-0.4); Lymphocytes Percent Auto 15.4 % (20-40); Mean Corpuscular Hemoglobin 29.2 pg (27.0-33.0); Mean Corpuscular Volume 88.6 fL (80-98); Mean Platelet Volume 11.8 fL (9.4-12.3); Monocytes Absolute Auto 0.6 X10*3/uL (0.1-1.2); Monocytes Percent Auto 9.4 % (2-11); Neutrophils Absolute Auto 4.5 X10*3/uL (2.0-8.3); Neutrophils Percent Auto 69.7 % (45-73); Platelet Count 278 X10*3/uL (160-400); Red Blood Count 4.31 X10*6/uL (4.20-5.50); Red Cell Distribution Width 13.3 % (11.0-16.0); White Blood Count 6.4 X10*3/uL (4.8-10.8)
[2020-11-11 07:41] LABS: Glucose, Whole Blood 161 mg/dL (60-115)
[2020-11-11] MEDS: ondansetron HCL 4 MG/2 ML VIAL IVPUSH (08:10)
[2020-11-11] MEDS: 0.9 % Sodium Chloride Flush 3 ML SYRINGE IVFLUSH ×2 (08:11→16:59)
[2020-11-11] MEDS: Fenofibrate 160 MG TABLET PO (08:16)
[2020-11-11] MEDS: Metoprolol Tartrate 100 MG TABLET PO ×2 (08:16→21:25)
[2020-11-11] MEDS: Furosemide 40 MG TABLET PO (08:16)
[2020-11-11] MEDS: Enalapril Maleate 10 MG TABLET 20 MG PO ×2 (08:16→21:25)
[2020-11-11] MEDS: hydrALAZINE HCl 25 MG TABLET 50 MG PO ×3 (08:16→21:26)
[2020-11-11] MEDS: amLODIPine Besylate 10 MG TABLET PO (08:17)
[2020-11-11] MEDS: Atorvastatin Calcium 40 MG TABLET PO (08:17)
[2020-11-11] MEDS: Nystatin Powder 15 GM BOTTLE 1 APPL TOPICAL ×2 (08:20→21:28)
[2020-11-11 11:37] LABS: Glucose, Whole Blood 295 mg/dL (60-115)
[2020-11-11] MEDS: Fidaxomicin 200 MG TABLET PO ×2 (11:50→23:51)
[2020-11-11] MEDS: Insulin Lispro 100 UNIT/ML 3 ML VIAL SUBCUT ×3 (11:50→21:26)
--- NOTE | 2020-11-11 13:53 | MHC.CM.PN ---
NURSE ACT TUTOR RU ELECTRONIC MEDICAL RECORD REVIEWED ALONG WITH CASE DISCUSSED ON MULTIPE DISCIPLAINRY ROUNDS, PER HOSPITALIST PATIENT WAS C-DIFF POSITIVE AND STARTED ON FLAGYL 500MG Q8HRS, ID CONUST ODERED TOSDAY POSSIBLE D/C ;ALTER TODAY OR TOMORROW DISCHARGE PLAN HOME NO SERVICES PCP DR ELADIA SAENZ PATIENT TO CALL FOR POST HOSPITAL DISCHARGE TRANSPORTATION PATIENT TO SELF ARRANGE
--- NOTE | 2020-11-11 14:19 | P.PNIM_ITS ---
Subjective Subjective Date of Service: 11/11/20 Interval History: Patient complaining of persistent abdominal pain and 2-3 bowel movements daily, complaining of nausea, although tolerating diet. General no headache, no dizziness, no fever chills. CVS no chest pain, no palpitation. Respiratory no cough, no shortness of breath Skin no rash Physical Exam Vital Signs: Vital Signs: Last Vital Signs Temp 97.5 F 11/11/20 11:59 Pulse 72 11/11/20 11:59 Resp 12 11/11/20 11:59 BP 153/74 H 11/11/20 11:59 Pulse Ox 96 11/11/20 11:59 Body Mass Index 39.3 General no acute distress, ambulating in room. Neck supple no JVD. CVS regular rate rhythm, Respiratory lungs clear to auscultation, no respiratory distress, no wheeze, no rhonchi. Gastrointestinal abdomen soft, mild epigastric tenderness with palpation, bowel sounds audible, no guarding , no rigidity. Extremities no edema. Neuro nonfocal , steady gait, speech clear. Skin no rash Objective Data Current Medications Generic Name Dose Route Start Last Admin Trade Name Freq PRN Reason Stop Dose Admin Acetaminophen 650 mg 11/06/20 00:06 Acetaminophen 325 Mg Tablet PO Q6H PRN Pain, Mild (Pain Scale 1-3) Albuterol Sulfate 1 - 2 puff 11/06/20 06:13 Albuterol Sulfate 90 Mcg 8 Gm Inhaler INHALE Q4H PRN Shortness Of Breath Or Wheezin Amlodipine Besylate 10 mg 11/06/20 09:00 11/11/20 08:17 Amlodipine Besylate 10 Mg Tablet PO 10 mg DAILY ALYSSA Administration Protocol Atorvastatin Calcium 40 mg 11/06/20 09:00 11/11/20 08:17 Atorvastatin Calcium 40 Mg Tablet PO 40 mg DAILY ALYSSA Administration Docusate Sodium 100 mg 11/06/20 00:06 Docusate Sodium 100 Mg Capsule PO DAILY PRN Constipation Enalapril Maleate 20 mg 11/06/20 09:00 11/11/20 08:16 Enalapril Maleate 10 Mg Tablet PO 20 mg BID ALYSSA Administration Fenofibrate 160 mg 11/08/20 09:00 11/11/20 08:16 Fenofibrate 160 Mg Tablet PO 160 mg DAILY ALYSSA Administration Fentanyl 25 mcg 11/06/20 07:00 11/09/20 06:36 Fentanyl 25 Mcg Patch.Td72 TRANSDERMA 25 mcg Q3D ALYSSA Administration Fidaxomicin 200 mg 11/11/20 11:00 11/11/20 11:50 Fidaxomicin 200 Mg Tablet PO 200 mg Q12H ALYSSA Administration Furosemide 40 mg 11/06/20 09:00 11/11/20 08:16 Furosemide 40 Mg Tablet PO 40 mg DAILY ALYSSA Administration Protocol Gabapentin 300 mg 11/08/20 21:00 11/10/20 21:57 Gabapentin 300 Mg Capsule PO 300 mg BEDTIME ALYSSA Administration Heparin Sodium (Porcine) 5,000 unit 11/06/20 00:06 11/11/20 11:51 Heparin Sodium,Porcine 5,000 Unit/Ml Vial SUBCUT 5,000 unit Q12H ALYSSA Administration Hydralazine HCl 50 mg 11/10/20 15:00 11/11/20 08:16 Hydralazine Hcl 25 Mg Tablet PO 50 mg TID [facility] Administration Protocol Hydromorphone HCl 1 mg 11/06/20 14:38 11/11/20 09:09 Hydromorphone Hcl 1 Mg/Ml Syringe IVPUSH 1 mg Q4H PRN Administration Pain, Severe (Pain Scale 7-10) Insulin Glargine 24 unit 11/07/20 21:00 11/10/20 21:59 Insulin Glargine,Hum.Rec.Anlog 100 Unit/Ml 10 Ml Vial SUBCUT 24 unit BEDTIME ALYSSA Administration Insulin Human Lispro 0 unit 11/06/20 07:30 11/11/20 11:50 Insulin Lispro 100 Unit/Ml 3 Ml Vial SUBCUT 6 unit QIDACHS [facility] Administration Protocol Metoprolol Tartrate 100 mg 11/06/20 09:00 11/11/20 08:16 Metoprolol Tartrate 100 Mg Tablet PO 100 mg BID ALYSSA Administration Protocol Nystatin 1 appl 11/10/20 13:00 11/11/20 08:20 Nystatin Powder 15 Gm Bottle TOPICAL 1 appl BID [facility] Administration Protocol Omeprazole 20 mg 11/09/20 12:05 11/11/20 06:01 Omeprazole 20 Mg Capsule. PO 20 mg BID@0630,1630 ALYSSA Administration Ondansetron HCl 4 mg 11/10/20 09:49 11/11/20 08:10 Ondansetron Hcl 4 Mg/2 Ml Vial IVPUSH 4 mg Q8H PRN Administration Nausea Oxycodone HCl 10 mg 11/06/20 16:00 11/10/20 19:46 Oxycodone Hcl Immed Release 5 Mg Tablet PO 10 mg Q6H PRN Administration Pain Sodium Chloride 3 ml 11/06/20 00:06 11/11/20 08:11 0.9 % Sodium Chloride Flush 3 Ml Syringe IVFLUSH 3 ml QSHIFT ALYSSA Administration Labs CBC & Chem 7: 11/11/20 06:04 11/11/20 06:04 Assessment and Plan (1) Acute pancreatitis: Status: Acute (2) Hypertension: Status: Acute (3) Essential hypertension: Status: Acute (4) Type 2 diabetes mellitus with unspecified complications: Status: Acute (5) C. difficile colitis: Status: Acute Assessment and Plan: 65 year old female with a history of pancreas divism, elevated TG, DM, HTN who presented to the ED with abdominal pain found to have acute pancreatitis, course now complicated by c.dif Acute pancreatitis Abdominal pain is improving tolerating regular diet, lipase normalized, will change IV Dilaudid to q.6 hour and continue as needed oxycodone Continue supportive care with PPI and Zofran recommended low-fat diet upon discharge,at home patient is on fentanyl patch. If patient nausea and diarrhea improves, will discharge patient home on by mouth oxycodone and discontinue Dilaudid. c dif Allergy listed to [facility], patient on Flagyl, seen by Dr. Camacho she discontinued Flagyl and place patient on Dificid 200 mg b.i.d. having 3 stools daily but not liquidy. Uncontrolled HTN BP improved but remains elevated since dose of hydralazine increased yesterday will continue current dosage and follow BP , Continue Norvasc, Metoprolol, Enalopril, and Lasix Diabetes mellitus POCs under 200. Continue SSI, POCs, and Lantus 24U QHS (Home dose of Insulin 91U BID) Chronic HFpEF no acute exacerbation ECHO from 09/14/20 shows impaired relaxation,Continue lasix HLD -Continue statin, lofibra Prolonged QT Repeat ekg shows improvement to 484 DVT ppx - heparin
[2020-11-11 16:25] LABS: Glucose, Whole Blood 251 mg/dL (60-115)
--- NOTE | 2020-11-11 16:28 | P.CNID_ITS ---
History of Present Illness Data of Consult Service Date: 11/10/20 Requesting physician: Ines Barbour Primary Care Provider: Armando Holloway MD HPI Reason for consult: diarrhea She has diarrhea for last two to three days She has no nausea or vomiting She has had reaction to Gentamicin and Vancomycin with shortness of breath and is not sure which caused it while going for procedure She is Cdiff positive Review of Systems Review of Systems: Yes all other systems are reviewed and are negative PMFSH Past Medical History Medical History Accelerated essential hypertension Acute pancreatitis Cervical cancer Diabetes Embolism Essential hypertension HLD (hyperlipidemia) HTN (hypertension) Other and unspecified hyperlipidemia Pancreatitis T2DM (type 2 diabetes mellitus) Type 2 diabetes mellitus with unspecified complications Vitamin D deficiency Family History Family History Father Diabetes Mother Diabetes Family history: reviewed and not pertinent Surgical History Surgical History Hx of cholecystectomy Hx of colonoscopy Hx of endoscopy Hx of hernia repair Hx of hysterectomy Hx of removal of cyst Social History Social History Household Members: Significant Other Housing: House Do you presently have visiting nurse or other home services: No Alcohol intake: never Smoking Status: Never smoker Smoked in Last 30 Days: No Use of substances other than those prescribed or required for medical reasons: No Currently Displaying Signs/Symptoms of Drug Intoxication Withdrawal: No Have you been hit, kicked, punched, or otherwise hurt by someone within the past year? If so, by whom?: No Do you feel safe in your current relationship?: Yes Is there a partner from a previous relationship who is making you feel unsafe now?: No Are you made to feel afraid or neglected: No Advance Directives: No Advance Directives Information Provided: Yes Do you have thoughts of harming others: None Do you have a plan to hurt others: No Plan Recently lost weight without trying: No service: No Current occupational status: employed Meds Allergies Allergy/AdvReac Type Severity Reaction Status Date / Time gentamicin Allergy Severe DIFFICULTY Verified 11/01/20 15:08 BREATHING Iodinated Contrast Media Allergy Severe DIFFICULTY Verified 11/01/20 15:08 BREATHING, NAUSEA, VOMITING latex [LATEX] Allergy Severe ANAPHYLASIS Verified 11/01/20 15:08 morphine Allergy Severe ANAPHYLAXIS Verified 11/01/20 15:08 Penicillins Allergy Severe STOPPED Verified 11/01/20 15:08 BREATHING vancomycin Allergy Severe DIFFICULTY Verified 11/01/20 15:08 BREATHING esomeprazole Allergy Mild UNKNOWN Verified 11/01/20 15:08 azithromycin Allergy Unknown unk Verified 11/01/20 15:08 erythromycin base Allergy Unknown unk Verified 11/01/20 15:08 shellfish derived Allergy Unknown DIFF Verified 11/01/20 15:08 [SHELLFISH DERIVED] BREATHING, SWELLING pantoprazole AdvReac Mild NAUSEA & Verified 11/01/20 15:08 VOMITING Active Medications: Current Medications Generic Name Dose Route Start Last Admin Trade Name Freq PRN Reason Stop Dose Admin Acetaminophen 650 mg 11/06/20 00:06 Acetaminophen 325 Mg Tablet PO Q6H PRN Pain, Mild (Pain Scale 1-3) Albuterol Sulfate 1 - 2 puff 11/06/20 06:13 Albuterol Sulfate 90 Mcg 8 Gm Inhaler INHALE Q4H PRN Shortness Of Breath Or Wheezin Amlodipine Besylate 10 mg 11/06/20 09:00 11/11/20 08:17 Amlodipine Besylate 10 Mg Tablet PO 10 mg DAILY ALYSSA Administration Protocol Atorvastatin Calcium 40 mg 11/06/20 09:00 11/11/20 08:17 Atorvastatin Calcium 40 Mg Tablet PO 40 mg DAILY ALYSSA Administration Docusate Sodium 100 mg 11/06/20 00:06 Docusate Sodium 100 Mg Capsule PO DAILY PRN Constipation Enalapril Maleate 20 mg 11/06/20 09:00 11/11/20 08:16 Enalapril Maleate 10 Mg Tablet PO 20 mg BID ALYSSA Administration Fenofibrate 160 mg 11/08/20 09:00 11/11/20 08:16 Fenofibrate 160 Mg Tablet PO 160 mg DAILY ALYSSA Administration Fentanyl 25 mcg 11/06/20 07:00 11/09/20 06:36 Fentanyl 25 Mcg Patch.Td72 TRANSDERMA 25 mcg Q3D ALYSSA Administration Fidaxomicin 200 mg 11/11/20 11:00 11/11/20 11:50 Fidaxomicin 200 Mg Tablet PO 200 mg Q12H ALYSSA Administration Furosemide 40 mg 11/06/20 09:00 11/11/20 08:16 Furosemide 40 Mg Tablet PO 40 mg DAILY ALYSSA Administration Protocol Gabapentin 300 mg 11/08/20 21:00 11/10/20 21:57 Gabapentin 300 Mg Capsule PO 300 mg BEDTIME ALYSSA Administration Heparin Sodium (Porcine) 5,000 unit 11/06/20 00:06 11/11/20 11:51 Heparin Sodium,Porcine 5,000 Unit/Ml Vial SUBCUT 5,000 unit Q12H ALYSSA Administration Hydralazine HCl 50 mg 11/10/20 15:00 11/11/20 14:27 Hydralazine Hcl 25 Mg Tablet PO 50 mg TID ALYSSA Administration Protocol Hydromorphone HCl 1 mg 11/11/20 14:34 Hydromorphone Hcl 1 Mg/Ml Syringe IVPUSH Q6H PRN Pain, Severe (Pain Scale 7-10) Insulin Glargine 24 unit 11/07/20 21:00 11/10/20 21:59 Insulin Glargine,Hum.Rec.Anlog 100 Unit/Ml 10 Ml Vial SUBCUT 24 unit BEDTIME ALYSSA Administration Insulin Human Lispro 0 unit 11/06/20 07:30 11/11/20 11:50 Insulin Lispro 100 Unit/Ml 3 Ml Vial SUBCUT 6 unit QIDACHS [facility] Administration Protocol Metoprolol Tartrate 100 mg 11/06/20 09:00 11/11/20 08:16 Metoprolol Tartrate 100 Mg Tablet PO 100 mg BID ALYSSA Administration Protocol Nystatin 1 appl 11/10/20 13:00 11/11/20 08:20 Nystatin Powder 15 Gm Bottle TOPICAL 1 appl BID [facility] Administration Protocol Omeprazole 20 mg 11/09/20 12:05 11/11/20 06:01 Omeprazole 20 Mg Capsule. PO 20 mg BID@0630,8640 [facility] Administration Ondansetron HCl 4 mg 11/10/20 09:49 11/11/20 08:10 Ondansetron Hcl 4 Mg/2 Ml Vial IVPUSH 4 mg Q8H PRN Administration Nausea Oxycodone HCl 10 mg 11/06/20 16:00 11/10/20 19:46 Oxycodone Hcl Immed Release 5 Mg Tablet PO 10 mg Q6H PRN Administration Pain Sodium Chloride 3 ml 11/06/20 00:06 11/11/20 08:11 0.9 % Sodium Chloride Flush 3 Ml Syringe IVFLUSH 3 ml QSHIFT [facility] Administration Home Medications Medication Instructions Recorded Confirmed Last Taken Type albuterol sulfate 90 mcg/actuation 1 - 2 puff INHALATION Q4-6H PRN 08/17/20 11/06/20 Unknown History aerosol inhaler amlodipine 10 mg tablet 10 mg PO DAILY 08/17/20 11/06/20 11/05/20 History atorvastatin 40 mg tablet 40 mg PO DAILY 08/17/20 11/06/20 11/05/20 History enalapril maleate 20 mg tablet 20 mg PO BID 08/17/20 11/06/20 11/05/20 09:00 History fenofibrate nanocrystallized 145 145 mg PO DAILY 08/17/20 11/06/20 11/05/20 History mg tablet fentanyl 25 mcg/hr transdermal 1 patch TOPICAL Q3D 08/17/20 11/06/20 11/04/20 History patch furosemide 40 mg tablet 40 mg PO DAILY 08/17/20 11/06/20 11/05/20 History gabapentin 300 mg capsule 300 mg PO BID PRN 08/17/20 11/06/20 11/05/20 09:00 History insulin detemir U-100 100 unit/mL 91 unit SUBCUT BID ml 08/17/20 11/06/20 11/05/20 History subcutaneous solution insulin lispro 100 unit/mL See Rx Instructions .ROUTE 08/17/20 11/06/20 Unknown History subcutaneous pen .COMPLEX ml lansoprazole 30 mg capsule,delayed 30 mg PO BID 08/17/20 11/06/20 11/05/20 History release metoprolol tartrate 100 mg tablet 100 mg PO BID 08/17/20 11/06/20 11/05/20 09:00 History oxycodone 10 mg tablet 10 mg PO QID PRN 08/17/20 11/06/20 Unknown History pen needle, diabetic 31 gauge x #1200 ea 08/17/20 08/17/20 Unknown History 01/22 Physical Exam Vital Signs: Vital Signs: Last Vital Signs Temp 97.9 F 11/11/20 15:34 Pulse 72 11/11/20 15:34 Resp 16 11/11/20 15:34 BP 135/50 L 11/11/20 15:34 Pulse Ox 96 11/11/20 15:34 Body Mass Index 39.3 Const: General: cooperative HENMT: Head: Yes normal to inspection Mouth: Normal oral and palatal mucosa present Eyes: General: appearance normal, both eyes and all related structures Resp: Effort & Inspection: normal respiratory effort Cardio: Rate: regular rate Rhythm: regular rhythm GI: Palpation (GI): Soft to palpation and Tenderness to palpation present (GI) : General: Yes no CVA tenderness Back/Spine/Pelvis: Back: no CVA tenderness Skin: General skin exam: no rashes or lesions noted Extrem: General: Yes normal to inspection Results Labs CBC & Chem 7: 11/11/20 06:04 11/11/20 06:04 Labs: Short CBC 11/11/20 Range/Units 06:04 WBC 6.4 (4.8-10.8) X10*3/uL Hgb 12.6 (12.0-16.0) g/dl Hct 38.2 (37-47) % Plt Count 278 (160-400) X10*3/uL BMP 11/11/20 06:04 Sodium 140 Potassium 3.5 Chloride 103 Carbon Dioxide 25 BUN 12 Creatinine 0.80 Calcium 8.9 Assessment and Plan (1) C. difficile colitis: Problem details: She is having diarrhea Cdiff is positive and she wishes not to use Vancomycin due to presumed allergy Status: Acute Fidaxomicin for 10 days (2) Type 2 diabetes mellitus with unspecified complications: Status: Acute
[2020-11-11 20:44] LABS: Glucose, Whole Blood 285 mg/dL (60-115)
[2020-11-11] MEDS: Gabapentin 300 MG CAPSULE PO (21:25)
[2020-11-11] MEDS: Insulin Glargine,Hum.rec.anlog 100 UNIT/ML 10 ML VIAL 24 UNIT SUBCUT (21:27)
[2020-11-11] MEDS: Dextrose 5 % and 0.9 % NaCl 1,000 ML 50 ML IVCONT (21:28)
[2020-11-12] VITALS (9 sets, daily range): BP systolic 136–179; BP diastolic 59–75; PULSE 66–75; RESP 16–20; TEMP 35.9–37; O2SAT 93–98
[2020-11-12] MEDS: HYDROmorphone HCl 1 MG/ML SYRINGE IVPUSH ×4 (02:06→21:27)
[2020-11-12] MEDS: Omeprazole 20 MG CAPSULE.DR PO ×2 (04:33→15:27)
[2020-11-12] MEDS: ondansetron HCL 4 MG/2 ML VIAL IVPUSH (04:33)
[2020-11-12 07:52] LABS: Glucose, Whole Blood 246 mg/dL (60-115)
[2020-11-12] MEDS: fentaNYL 25 MCG PATCH.TD72 TRANSDERMA (07:52)
[2020-11-12] MEDS: Insulin Lispro 100 UNIT/ML 3 ML VIAL SUBCUT ×4 (07:55→22:04)
[2020-11-12] MEDS: amLODIPine Besylate 10 MG TABLET PO (07:56)
[2020-11-12] MEDS: Fenofibrate 160 MG TABLET PO (07:56)
[2020-11-12] MEDS: Metoprolol Tartrate 100 MG TABLET PO ×2 (07:57→21:28)
[2020-11-12] MEDS: hydrALAZINE HCl 25 MG TABLET 50 MG PO ×3 (07:57→21:27)
[2020-11-12] MEDS: Enalapril Maleate 10 MG TABLET 20 MG PO ×2 (07:58→21:29)
[2020-11-12] MEDS: Furosemide 40 MG TABLET PO (07:58)
[2020-11-12] MEDS: Atorvastatin Calcium 40 MG TABLET PO (08:34)
[2020-11-12] MEDS: Nystatin Powder 15 GM BOTTLE 1 APPL TOPICAL ×2 (08:34→22:03)
[2020-11-12 11:51] LABS: Glucose, Whole Blood 326 mg/dL (60-115)
[2020-11-12] MEDS: Fidaxomicin 200 MG TABLET PO ×2 (11:57→23:39)
[2020-11-12] MEDS: Heparin Sodium,Porcine 5,000 UNIT/ML VIAL 5000 UNIT SUBCUT ×2 (11:57→23:39)
--- NOTE | 2020-11-12 12:58 | HO.PM.IMPN ---
Subjective Subjective Date of Service: 11/12/20 <Genny Sanchez NP - Last Filed: 11/12/20 13:08> 11/12/20 <Henry Varela MD - Last Filed: 11/12/20 15:20> Interval History: Follow up pancreatitis and Cdiff. Pain is better, she is eating, stool is now solid. <Genny Sanchez NP - Last Filed: 11/12/20 13:08> Physical Exam Vital Signs: Vital Signs: Last Vital Signs Temp 96.6 F L 11/12/20 11:36 Pulse 66 11/12/20 11:36 Resp 18 11/12/20 11:36 BP 136/59 L 11/12/20 11:36 Pulse Ox 97 11/12/20 11:36 Body Mass Index 39.3 <Genny Sanchez NP - Last Filed: 11/12/20 13:08> Appearing in no acute distress, ambulating in her room. lung sounds are clear to auscultation heart regular rate rhythm, clear S1, S2 positive bowel sounds, abdomen is soft, nontender neuro patient is alert x3, no focal deficits <Genny Sanchez NP - Last Filed: 11/12/20 13:08> Objective Data Current Medications Generic Name Dose Route Start Last Admin Trade Name Freq PRN Reason Stop Dose Admin Acetaminophen 650 mg 11/06/20 00:06 Acetaminophen 325 Mg Tablet PO Q6H PRN Pain, Mild (Pain Scale 1-3) Albuterol Sulfate 1 - 2 puff 11/06/20 06:13 Albuterol Sulfate 90 Mcg 8 Gm Inhaler INHALE Q4H PRN Shortness Of Breath Or Wheezin Amlodipine Besylate 10 mg 11/06/20 09:00 11/12/20 07:56 Amlodipine Besylate 10 Mg Tablet PO 10 mg DAILY ALYSSA Administration Protocol Atorvastatin Calcium 40 mg 11/06/20 09:00 11/12/20 08:34 Atorvastatin Calcium 40 Mg Tablet PO 40 mg DAILY ALYSSA Administration Docusate Sodium 100 mg 11/06/20 00:06 Docusate Sodium 100 Mg Capsule PO DAILY PRN Constipation Enalapril Maleate 20 mg 11/06/20 09:00 11/12/20 07:58 Enalapril Maleate 10 Mg Tablet PO 20 mg BID ALYSSA Administration Fenofibrate 160 mg 11/08/20 09:00 11/12/20 07:56 Fenofibrate 160 Mg Tablet PO 160 mg DAILY ALYSSA Administration Fentanyl 25 mcg 11/06/20 07:00 11/12/20 07:52 Fentanyl 25 Mcg Patch.Td72 TRANSDERMA 25 mcg Q3D ALYSSA Administration Fidaxomicin 200 mg 11/11/20 11:00 11/12/20 11:57 Fidaxomicin 200 Mg Tablet PO 200 mg Q12H ALYSSA Administration Furosemide 40 mg 11/06/20 09:00 11/12/20 07:58 Furosemide 40 Mg Tablet PO 40 mg DAILY ALYSSA Administration Protocol Gabapentin 300 mg 11/08/20 21:00 11/11/20 21:25 Gabapentin 300 Mg Capsule PO 300 mg BEDTIME ALYSSA Administration Heparin Sodium (Porcine) 5,000 unit 11/06/20 00:06 11/12/20 11:57 Heparin Sodium,Porcine 5,000 Unit/Ml Vial SUBCUT 5,000 unit Q12H ALYSSA Administration Hydralazine HCl 50 mg 11/10/20 15:00 11/12/20 07:57 Hydralazine Hcl 25 Mg Tablet PO 50 mg TID ALYSSA Administration Protocol Hydromorphone HCl 1 mg 11/11/20 14:34 11/12/20 08:40 Hydromorphone Hcl 1 Mg/Ml Syringe IVPUSH 1 mg Q6H PRN Administration Pain, Severe (Pain Scale 7-10) Insulin Glargine 24 unit 11/07/20 21:00 11/11/20 21:27 Insulin Glargine,Hum.Rec.Anlog 100 Unit/Ml 10 Ml Vial SUBCUT 24 unit BEDTIME ALYSSA Administration Insulin Human Lispro 0 unit 11/06/20 07:30 11/12/20 11:57 Insulin Lispro 100 Unit/Ml 3 Ml Vial SUBCUT 8 unit QIDACHS [facility] Administration Protocol Metoprolol Tartrate 100 mg 11/06/20 09:00 11/12/20 07:57 Metoprolol Tartrate 100 Mg Tablet PO 100 mg BID ALYSSA Administration Protocol Nystatin 1 appl 11/10/20 13:00 11/12/20 08:34 Nystatin Powder 15 Gm Bottle TOPICAL 1 appl BID ALYSSA Administration Protocol Omeprazole 20 mg 11/09/20 12:05 11/12/20 04:33 Omeprazole 20 Mg Capsule. PO 20 mg BID@0630,9390 ALYSSA Administration Ondansetron HCl 4 mg 11/10/20 09:49 11/12/20 04:33 Ondansetron Hcl 4 Mg/2 Ml Vial IVPUSH 4 mg Q8H PRN Administration Nausea Oxycodone HCl 10 mg 11/06/20 16:00 11/10/20 19:46 Oxycodone Hcl Immed Release 5 Mg Tablet PO 10 mg Q6H PRN Administration Pain Sodium Chloride 3 ml 11/06/20 00:06 11/12/20 08:02 0.9 % Sodium Chloride Flush 3 Ml Syringe IVFLUSH Not Given QSHIFT ALYSSA <Genny Sanchez NP - Last Filed: 11/12/20 13:08> Labs CBC & Chem 7: : 11/11/20 06:04 11/11/20 06:04 <Genny Sanchez NP - Last Filed: 11/12/20 13:08> Assessment and Plan (1) C. difficile colitis: Problem details: She is having diarrhea Cdiff is positive and she wishes not to use Vancomycin due to presumed allergy <Genny Sanchez NP - Last Filed: 11/12/20 13:08> Status: Acute <Genny Sanchez NP - Last Filed: 11/12/20 13:08> (2) Acute pancreatitis: Status: Acute <Genny Sanchez NP - Last Filed: 11/12/20 13:08> Assessment and Plan: This is a 65 year old female with a history of pancreas divism, elevated TG, DM, HTN who presented to the ED with abdominal pain found to have acute pancreatitis, course now complicated by c.dif Cdiff. Allergy listed to navneet. Patient needs to be discharged on Fidaxomicin, multiple pharmacies contacted, unable to have medication until Saturday and may need prior auth. -Fidaxomicin, case management for possible prior auth -ID consult following Acute pancreatitis-Pain minimal. Appetite improved. - Diet advanced Uncontrolled HTN. Better today. - Continue Norvasc, Metoprolol, Enalopril, Lasix and hydralazine. - monitor BP closely Diabetes mellitus - SSI, POCs - Continue Lantus 24U QHS (Home dose of Insulin 91U BID) Chronic HFpEF ECHO from 09/14/20 shows impaired relaxation -Continue lasix HLD -Continue statin, lofibra Attending: Dr. Varela <Genny Sanchez NP - Last Filed: 11/12/20 13:08>
[2020-11-12] MEDS: 0.9 % Sodium Chloride Flush 3 ML SYRINGE IVFLUSH ×2 (15:30→21:29)
[2020-11-12 16:28] LABS: Glucose, Whole Blood 217 mg/dL (60-115)
[2020-11-12] MEDS: oxyCODONE HCl Immed Release 5 MG TABLET 10 MG PO ×2 (17:56→23:41)
[2020-11-12 20:44] LABS: Glucose, Whole Blood 254 mg/dL (60-115)
[2020-11-12] MEDS: Gabapentin 300 MG CAPSULE PO (21:27)
[2020-11-12] MEDS: Insulin Glargine,Hum.rec.anlog 100 UNIT/ML 10 ML VIAL 24 UNIT SUBCUT (22:04)
[2020-11-13] VITALS: BP 163/71; PULSE 65; RESP 18; TEMP 36.2
[2020-11-13] MEDS: HYDROmorphone HCl 1 MG/ML SYRINGE IVPUSH ×2 (03:26→09:34)
[2020-11-13 03:31] VITALS: BP 140/68; PULSE 69; RESP 16; TEMP 36.2; O2SAT 97
[2020-11-13] MEDS: Omeprazole 20 MG CAPSULE.DR PO (06:27)
[2020-11-13] MEDS: oxyCODONE HCl Immed Release 5 MG TABLET 10 MG PO (06:27)
[2020-11-13 07:32] LABS: Glucose, Whole Blood 159 mg/dL (60-115)
[2020-11-13 07:53] VITALS: BP 154/83; PULSE 73; RESP 18; TEMP 36.4; O2SAT 97
[2020-11-13] MEDS: Insulin Lispro 100 UNIT/ML 3 ML VIAL SUBCUT ×2 (08:11→11:41)
[2020-11-13] MEDS: Enalapril Maleate 10 MG TABLET 20 MG PO (08:12)
[2020-11-13] MEDS: Metoprolol Tartrate 100 MG TABLET PO (08:12)
[2020-11-13] MEDS: hydrALAZINE HCl 25 MG TABLET 50 MG PO (08:12)
[2020-11-13] MEDS: 0.9 % Sodium Chloride Flush 3 ML SYRINGE IVFLUSH (08:13)
[2020-11-13] MEDS: Atorvastatin Calcium 40 MG TABLET PO (08:13)
[2020-11-13] MEDS: Fenofibrate 160 MG TABLET PO (08:13)
[2020-11-13] MEDS: Furosemide 40 MG TABLET PO (08:13)
[2020-11-13] MEDS: amLODIPine Besylate 10 MG TABLET PO (08:13)
[2020-11-13] MEDS: Nystatin Powder 15 GM BOTTLE 1 APPL TOPICAL (08:15)
[2020-11-13 11:14] VITALS: BP 121/55; PULSE 70; RESP 18; TEMP 36.5; O2SAT 97
[2020-11-13 11:36] LABS: Glucose, Whole Blood 209 mg/dL (60-115)
[2020-11-13] MEDS: Fidaxomicin 200 MG TABLET PO (11:40)
[2020-11-13] MEDS: Heparin Sodium,Porcine 5,000 UNIT/ML VIAL 5000 UNIT SUBCUT (11:40)
== END 2020-11-13 12:35 | disposition home or self-care (01) | DRG 439 ==
LOC: HO.ED 19:44 → HO.EDOVER 11-06 05:42 → HO.S3 11-06 08:41
PROVIDERS: Hospitalist; Internal Medicine; Nurse Practitioner Acute Care; Physician Assistant Medical; Admitting Provider Internal Medicine; Emergency Provider Emergency Medicine; PCP Internal Medicine; Visit Provider Family Medicine
DX: K85.80 Other acute pancreatitis without necrosis or infection (principal); A04.72 Enterocolitis due to Clostridium difficile, not specified as recurrent; I50.32 Chronic diastolic (congestive) heart failure; Z20.822 Contact with and (suspected) exposure to COVID-19; I16.0 Hypertensive urgency; E78.1 Pure hyperglyceridemia; R94.31 Abnormal electrocardiogram [ECG] [EKG]; I11.0 Hypertensive heart disease with heart failure; E11.65 Type 2 diabetes mellitus with hyperglycemia; Z85.41 Personal history of malignant neoplasm of cervix uteri; Z88.5 Allergy status to narcotic agent; Z79.4 Long term (current) use of insulin; Z79.891 Long term (current) use of opiate analgesic; Z79.899 Other long term (current) drug therapy
CPT/HCPCS: 36415; 74176; 78452; 80048; 80076; 81001; 82947; 83690; 83735; 84478; 85025; 87324; 87449; 87493; 87635; 93005; 93016; 93017; 93018; 99285; A9500; J0280; J1170; J2405; J2785; J3475; Q0163

== ENCOUNTER → 2020-11-17 15:52 | Outpatient (BNVA) | payer MEDICARE, OTHER, SELFPAY | PROVIDERS: PCP Internal Medicine; Visit Provider Internal Medicine | DX: R07.2 Precordial pain (principal); R06.02 Shortness of breath; I10 Essential (primary) hypertension; E78.5 Hyperlipidemia, unspecified; E11.8 Type 2 diabetes mellitus with unspecified complications; Z79.899 Other long term (current) drug therapy | CPT/HCPCS: Q3014 ==

== ENCOUNTER 2020-12-05 17:31 | Outpatient (REF) | payer MEDICARE, OTHER, SELFPAY ==
[2020-12-05 18:21] LABS: Influenza B PCR NEGATIVE (Negative); Resp Syncy Virus RNA Qual PCR NEGATIVE (Negative); SARS COV2 PCR INHOUSE POSITIVE (Negative)
[2020-12-05 18:31] LABS: Influenza A PCR NEGATIVE (Negative)
== END 2020-12-05 17:32 | disposition home or self-care (01) ==
LOC: HO.LNP 17:31
PROVIDERS: Visit Provider Internal Medicine
DX: R50.9 Fever, unspecified (principal); R52 Pain, unspecified; Z20.822 Contact with and (suspected) exposure to COVID-19
CPT/HCPCS: 0241U

== ENCOUNTER → 2021-01-31 14:12 | Outpatient (BNVA) | payer MEDICARE, OTHER, SELFPAY | PROVIDERS: PCP Internal Medicine; Visit Provider Internal Medicine Endocrinology, Diabetes & Metabolism | DX: E11.65 Type 2 diabetes mellitus with hyperglycemia (principal); E78.5 Hyperlipidemia, unspecified; E55.9 Vitamin D deficiency, unspecified; I10 Essential (primary) hypertension; Z79.4 Long term (current) use of insulin | CPT/HCPCS: 82947; 99212 ==

== ENCOUNTER 2021-02-03 14:10 | Outpatient (REF) | payer MEDICARE, OTHER, SELFPAY ==
[2021-02-03 14:32] LABS: MANUAL DIFF FLAG NO
[2021-02-03 14:34] LABS: Basophils Absolute Auto 0.1 X10*3/uL (0.0-0.2); Eosinophils Absolute Auto 0.4 X10*3/uL (0.0-0.4); Eosinophils Percent Auto 6.5 % (0-4); Hematocrit 36.8 % (37-47); Hemoglobin 11.9 g/dl (12.0-16.0); Imm Gran Abs Auto 0.03 X10*3/uL (0.00-0.03); Imm Gran Pct Auto 0.4 % (0.0-0.4); Lymphocytes Absolute Auto 1.5 X10*3/uL (1.2-4.9); Lymphocytes Percent Auto 21.7 % (20-40); Mean Corpuscular HGB Conc 32.3 g/dl (31.0-35.0); Mean Corpuscular Hemoglobin 29.2 pg (27.0-33.0); Mean Corpuscular Volume 90.4 fL (80-98); Monocytes Absolute Auto 0.6 X10*3/uL (0.1-1.2); Monocytes Percent Auto 9.1 % (2-11); Neutrophils Absolute Auto 4.1 X10*3/uL (2.0-8.3); Neutrophils Percent Auto 61.3 % (45-73); Platelet Count 273 X10*3/uL (160-400); Red Blood Count 4.07 X10*6/uL (4.20-5.50); Red Cell Distribution Width 14.4 % (11.0-16.0); White Blood Count 6.7 X10*3/uL (4.8-10.8)
[2021-02-03 14:46] LABS: Estimated Average Glucose 246 mg/dL; Hemoglobin A1c % 10.2 %
[2021-02-03 14:58] LABS: Alanine Aminotransferase 34 U/L (0-31); Albumin Level 3.9 g/dL (3.5-5.0); Alkaline Phosphatase 93 U/L (39-117); Anion Gap 12 (12-20); Aspartate Amino Transferase 37 U/L (5-31); Bilirubin Total 0.7 mg/dL (0.0-1.0); Blood Urea Nitrogen 16 mg/dL (9-16); Calcium 9.6 mg/dL (8.4-10.2); Carbon Dioxide 28 mmol/L (22-29); Chloride 104 mmol/L (96-108); Cholesterol 197 mg/dL; Estimated Glomerular Filt Rate 58; Glucose Random 208 mg/dL (60-115); HDL Cholesterol 32 mg/dL; Lipase 14 U/L (8-78); Potassium 4.4 mmol/L (3.3-5.1); Sodium 140 mmol/L (135-145); Total Protein 6.8 g/dL (6.5-8.0); Triglycerides 528 mg/dL
[2021-02-04 07:01] LABS: LDL Cholesterol Direct 43 mg/dL (<100)
== END 2021-02-03 14:11 | disposition home or self-care (01) ==
LOC: HO.LAB 14:10
PROVIDERS: Absent Provider Internal Medicine Endocrinology, Diabetes & Metabolism; PCP Internal Medicine; Visit Provider Internal Medicine
DX: E78.2 Mixed hyperlipidemia (principal); E11.9 Type 2 diabetes mellitus without complications; I10 Essential (primary) hypertension; K85.90 Acute pancreatitis without necrosis or infection, unspecified
CPT/HCPCS: 36415; 80053; 80061; 83036; 83690; 83721; 85025

== ENCOUNTER → 2021-02-20 07:38 | Outpatient (BNVA) | payer MEDICARE, OTHER, SELFPAY | PROVIDERS: PCP Internal Medicine; Visit Provider Internal Medicine Endocrinology, Diabetes & Metabolism | CPT/HCPCS: Q3014 ==

== ENCOUNTER 2021-05-22 10:11 | Outpatient (REF) | payer MEDICARE, OTHER, SELFPAY ==
[2021-05-22 13:20] LABS: Hematocrit 36.6 % (37-47); Hemoglobin 11.8 g/dl (12.0-16.0); Mean Corpuscular HGB Conc 32.2 g/dl (31.0-35.0); Mean Corpuscular Hemoglobin 28.8 pg (27.0-33.0); Mean Corpuscular Volume 89.3 fL (80-98); Mean Platelet Volume 12.1 fL (9.4-12.3); Platelet Count 263 X10*3/uL (160-400); Red Cell Distribution Width 13.5 % (11.0-16.0); White Blood Count 7.2 X10*3/uL (4.8-10.8)
[2021-05-22 13:22] LABS: INTERNATIONAL NORM RATIO 0.9 (0.9-1.1); Prothrombin Time 10.7 SEC (9.9-13.0)
[2021-05-22 14:11] LABS: Anion Gap 11 (12-20); Blood Urea Nitrogen 14 mg/dL (9-16); Calcium 9.8 mg/dL (8.4-10.2); Carbon Dioxide 27 mmol/L (22-29); Chloride 102 mmol/L (96-108); Estimated Glomerular Filt Rate 53; Glucose Random 275 mg/dL (60-115); Potassium 4.4 mmol/L (3.3-5.1); Sodium 136 mmol/L (135-145)
== END 2021-05-22 10:12 | disposition home or self-care (01) ==
LOC: HO.LAB 10:11
PROVIDERS: PCP Internal Medicine; Referring Provider Internal Medicine; Visit Provider Internal Medicine
DX: R07.2 Precordial pain (principal); R06.02 Shortness of breath; E11.8 Type 2 diabetes mellitus with unspecified complications; I10 Essential (primary) hypertension; E78.5 Hyperlipidemia, unspecified; I35.0 Nonrheumatic aortic (valve) stenosis; Z88.8 Allergy status to other drugs, medicaments and biological substances
CPT/HCPCS: 36415; 80048; 85027; 85610; 99212

== ENCOUNTER → 2021-05-24 08:13 | Outpatient (BNVA) | payer MEDICARE, OTHER, SELFPAY | PROVIDERS: PCP Internal Medicine; Visit Provider Nurse Practitioner Gerontology | CPT/HCPCS: Q3014 ==

== ENCOUNTER → 2021-07-03 13:19 | Outpatient (BNVA) | payer MEDICARE, OTHER, SELFPAY | PROVIDERS: PCP Internal Medicine; Referring Provider Internal Medicine; Visit Provider Internal Medicine | DX: E11.8 Type 2 diabetes mellitus with unspecified complications (principal); I35.0 Nonrheumatic aortic (valve) stenosis; I10 Essential (primary) hypertension | CPT/HCPCS: 99212 ==

== ENCOUNTER 2021-10-27 16:57 | Outpatient (REF) | payer MEDICARE, OTHER, SELFPAY ==
[2021-10-27 17:11] LABS: MANUAL DIFF FLAG NO
[2021-10-27 17:41] LABS: Basophils Absolute Auto 0.1 X10*3/uL (0.0-0.2); Basophils Percent Auto 0.8 % (0-2); Eosinophils Absolute Auto 0.3 X10*3/uL (0.0-0.4); Eosinophils Percent Auto 3.7 % (0-4); Hematocrit 34.5 % (37.0-47.0); Hemoglobin 11.1 g/dl (12.0-16.0); Imm Gran Abs Auto 0.03 X10*3/uL (0.00-0.03); Imm Gran Pct Auto 0.3 % (0.0-0.4); Lymphocytes Absolute Auto 1.3 X10*3/uL (1.2-4.9); Mean Corpuscular HGB Conc 32.2 g/dl (31.0-35.0); Mean Corpuscular Hemoglobin 29.5 pg (27.0-33.0); Mean Corpuscular Volume 91.8 fL (80.0-98.0); Mean Platelet Volume 11.3 fL (9.4-12.3); Monocytes Absolute Auto 0.7 X10*3/uL (0.1-1.2); Neutrophils Absolute Auto 6.8 x10*3/uL (2.0-8.3); Neutrophils Percent Auto 74.2 % (45-73); Platelet Count 351 X10*3/uL (160-400); Red Blood Count 3.76 X10*6/uL (4.20-5.50); Red Cell Distribution Width 13.2 % (11.0-16.0); White Blood Count 9.2 X10*3/uL (4.8-10.8)
[2021-10-27 17:47] LABS: Alanine Aminotransferase 12 U/L (0-31); Albumin Level 4.1 g/dL (3.5-5.0); Alkaline Phosphatase 75 U/L (39-117); Anion Gap 12 (12-20); Aspartate Amino Transferase 17 U/L (5-31); Bilirubin Total 0.4 mg/dL (0.0-1.0); Blood Urea Nitrogen 31 mg/dL (9-16); Calcium 9.7 mg/dL (8.4-10.2); Carbon Dioxide 27 mmol/L (22-29); Chloride 100 mmol/L (96-108); Estimated Glomerular Filt Rate 23; Glucose Random 338 mg/dL (60-115); Potassium 5.3 mmol/L (3.3-5.1); Sodium 134 mmol/L (135-145)
[2021-10-27 17:52] LABS: Estimated Average Glucose 289 mg/dL; Hemoglobin A1c % 11.7 %
[2021-10-27 18:00] LABS: Creatinine Urine 186.18 mg/dL; Microalbum/Creatinine Ratio Ur 20.4 ug/mg cr
== END 2021-10-27 16:58 | disposition home or self-care (01) ==
LOC: HO.LAB 16:57
PROVIDERS: PCP Internal Medicine; Visit Provider Internal Medicine
DX: Z13.89 Encounter for screening for other disorder (principal)
CPT/HCPCS: 36415; 80053; 82043; 83036; 84443; 85025

== ENCOUNTER 2021-10-28 02:03 | Inpatient (IN) | payer MEDICARE, OTHER, SELFPAY ==
[2021-10-28] VITALS (11 sets, daily range): BP systolic 160–191; BP diastolic 67–85; PULSE 68–94; RESP 14–20; TEMP 36.5–36.9; O2SAT 95–100; BMI 38.9
--- NOTE | ~2021-10-28 | CT_ITS ---
EXAMINATION: CT ABDOMEN AND PELVIS WITHOUT CONTRAST CLINICAL INFORMATION: Epigastric/right upper quadrant pain COMPARISON: 11/05/2020 TECHNIQUE: Multidetector volumetric imaging was performed from the superior aspect of the liver through the pubic symphysis. Sagittal and coronal reformatted images were obtained on the technologist's workstation. This CT examination was performed using dose optimization techniques as appropriate, variously including the following: *Automated exposure control *Adjustment of mA and/or kV according to patient size (this includes techniques or standardized protocols for targeted exams where dose is matched to indication/reason for exam; i.e. extremities or head) *Use of iterative reconstruction technique DLP: 872 mGy-cm FINDINGS: LUNG BASES: The visualized lung bases are unremarkable. LIVER, GALLBLADDER, AND BILIARY TREE: The liver is normal in size, shape, and attenuation. No focal hepatic lesion or biliary ductal dilatation is present. Gallbladder is absent. PANCREAS: There is interstitial edematous pancreatitis obscuring pancreatic architecture, associated with marked peripancreatic fat stranding. No acute necrotic collection is more peripancreatic fluid collections at this time. SPLEEN: Unremarkable. ADRENAL GLANDS: Unremarkable. KIDNEYS AND URETERS: The kidneys are normal in size, shape, and attenuation. No hydronephrosis, hydroureter, or calculi seen. No perinephric stranding. BLADDER: Unremarkable. GASTROINTESTINAL TRACT: The small and large bowel are unremarkable. The appendix is unremarkable. ABDOMINAL WALL: No significant hernia is appreciated. LYMPH NODES: Normal. VASCULAR: Aorta mildly atherosclerotic. PELVIC VISCERA: Hysterectomy. Ovaries unremarkable. OSSEOUS STRUCTURES: No acute or suspicious osseous abnormalities. CT/CT abdomen pelvis wo con IMPRESSION: Acute pancreatitis. No acute necrotic collection or peripancreatic fluid collection evident at this time.
--- NOTE | ~2021-10-28 | CT_ITS ---
EXAMINATION: CT ABDOMEN WITHOUT CONTRAST CLINICAL INFORMATION: Persistent abdominal pain, pain. COMPARISON: 10/28/2021 TECHNIQUE: Contiguous axial thin section helical images of the abdomen were performed without contrast. The data set was reformatted in the coronal and sagittal planes and reviewed on an independent workstation. This CT examination was performed using dose optimization techniques as appropriate, variously including the following: *Automated exposure control *Adjustment of mA and/or kV according to patient size (this includes techniques or standardized protocols for targeted exams where dose is matched to indication/reason for exam; i.e. extremities or head) *Use of iterative reconstruction technique DLP: 395 mGy-cm FINDINGS: LUNG BASES: Lung bases are clear without nodules or infiltrates LIVER, GALLBLADDER, BILIARY TREE: Liver is homogeneous without masses or ductal dilatation. No focal soft tissue calcifications. Gallbladder is surgically absent PANCREAS: Seen on the previous examination. Pancreatic edema significantly improved. There is minimal edema surrounding it pancreatic head and neck. SPLEEN: Unremarkable ADRENAL GLANDS AND KIDNEYS: adrenal glands are normal not enlarged. Kidneys revealed no masses or calcifications or hydronephrosis. There is mild perinephric stranding on the right. BOWEL LOOPS: Visualized loops of bowel are nondilated and revealed no evidence for obstruction. LYMPH NODES: There is no mesenteric lymphadenopathy VASCULAR: Visualized vasculature is normal. BONES: Unremarkable CT/CT abdomen wo con IMPRESSION: Improvement of pancreatitis with minimal peripancreatic stranding surrounding the pancreatic head and neck Fleischner guidelines were followed.
--- NOTE | 2021-10-28 02:13 | ECG_ITS ---
Test Reason : VOMITING Blood Pressure : / mmHG Vent. Rate : 087 BPM Atrial Rate : 087 BPM P-R Int : 150 ms QRS Dur : 084 ms QT Int : 386 ms P-R-T Axes : 115 142 134 degrees QTc Int : 464 ms Suspect limb lead reversal, interpretation assumes no reversal Normal sinus rhythm Lateral infarct , age undetermined Abnormal ECG When compared with ECG of 07-NOV-2020 11:12, Lateral infarct is now Present T wave inversion now evident in Lateral leads Referred By: Generic ED Physician Electronically Signed By:
[2021-10-28 02:49] LABS: COVID-19 Test Negative (Negative)
[2021-10-28 03:14] LABS: MANUAL DIFF FLAG NO
[2021-10-28 03:15] LABS: Basophils Absolute Auto 0.1 X10*3/uL (0.0-0.2); Basophils Percent Auto 0.4 % (0-2); Eosinophils Absolute Auto 0.2 X10*3/uL (0.0-0.4); Eosinophils Percent Auto 1.3 % (0-4); Hematocrit 36.5 % (37.0-47.0); Hemoglobin 12.1 g/dl (12.0-16.0); Imm Gran Abs Auto 0.04 X10*3/uL (0.00-0.03); Imm Gran Pct Auto 0.3 % (0.0-0.4); Lymphocytes Percent Auto 8.2 % (20-40); Mean Corpuscular HGB Conc 33.2 g/dl (31.0-35.0); Mean Corpuscular Hemoglobin 29.4 pg (27.0-33.0); Mean Corpuscular Volume 88.6 fL (80.0-98.0); Mean Platelet Volume 10.8 fL (9.4-12.3); Monocytes Absolute Auto 0.5 X10*3/uL (0.1-1.2); Monocytes Percent Auto 4.5 % (2-11); Neutrophils Percent Auto 85.3 % (45-73); Platelet Count 318 X10*3/uL (160-400); Red Blood Count 4.12 X10*6/uL (4.20-5.50); White Blood Count 11.8 X10*3/uL (4.8-10.8)
[2021-10-28 03:19] LABS: Appearance Urine CLEAR; Color Urine YELLOW; Glucose Urine UA >=1000 MG/DL (NEG); Leukocyte Esterase Urine NEG (NEG); Nitrite Urine NEG (NEG); PH 7.5 (5.0-8.0); Urine Blood NEG (NEG); Urine Ketones NEG (NEG); Urine Protein NEG (NEG-TRACE)
[2021-10-28 03:27] LABS: Bacteria Urine 1+ /LPF; Squamous Epithelial Cell Urine 1+ /LPF
[2021-10-28 03:34] LABS: Alanine Aminotransferase 15 U/L (0-31); Albumin Level 4.3 g/dL (3.5-5.0); Alkaline Phosphatase 67 U/L (39-117); Anion Gap 17 (12-20); Aspartate Amino Transferase 25 U/L (5-31); Bilirubin Direct 0.2 mg/dL (0.0-0.5); Bilirubin Total 0.6 mg/dL (0.0-1.0); Blood Urea Nitrogen 25 mg/dL (9-16); Carbon Dioxide 22 mmol/L (22-29); Chloride 100 mmol/L (96-108); Creatinine Clr Calc Pharmacy 41.5; Estimated Glomerular Filt Rate 36; Glucose Random 289 mg/dL (60-115); Potassium 4.7 mmol/L (3.3-5.1); Sodium 134 mmol/L (135-145); Total Protein 7.7 g/dL (6.5-8.0)
[2021-10-28 03:51] LABS: Lipase 1326 U/L (8-78)
[2021-10-28] MEDS: HYDROmorphone HCl 0.5 MG/0.5 ML SYRINGE 0.25 MG IVPUSH (04:06)
[2021-10-28] MEDS: 0.9 % Sodium Chloride 1,000 ML 999 ML IV ×2 (04:18→05:14)
--- NOTE | 2021-10-28 04:18 | ED_ITS ---
HPI - Nausea/Vomiting/Diarrhea General Chief complaint: Nausea/Vomiting/Diarrhea Stated complaint: pancreatitis Time Seen by Provider: 10/28/21 03:47 Source: patient and family ( ) Mode of arrival: ambulatory History of Present Illness HPI Narrative: 66-year-old female with history of diabetes and presents with acute onset of acute epigastric pain with multiple episodes of nausea and vomiting. 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 Patient also reports reoccurrence of right leg redness and swelling. Related Data Home Medications Medication Instructions Recorded Confirmed albuterol sulfate 90 mcg/actuation 1 - 2 puff INHALATION Q4-6H PRN 08/17/20 07/03/21 aerosol inhaler amlodipine 10 mg tablet 10 mg PO DAILY 08/17/20 07/03/21 atorvastatin 40 mg tablet 40 mg PO DAILY 08/17/20 07/03/21 enalapril maleate 20 mg tablet 20 mg PO BID 08/17/20 07/03/21 fenofibrate nanocrystallized 145 145 mg PO DAILY 08/17/20 07/03/21 mg tablet fentanyl 25 mcg/hr transdermal 1 patch TOPICAL Q3D 08/17/20 07/03/21 patch furosemide 40 mg tablet 40 mg PO DAILY 08/17/20 07/03/21 gabapentin 300 mg capsule 300 mg PO BID PRN 08/17/20 07/03/21 lansoprazole 30 mg capsule,delayed 30 mg PO BID 08/17/20 07/03/21 release metoprolol tartrate 100 mg tablet 100 mg PO BID 08/17/20 07/03/21 oxycodone 10 mg tablet 10 mg PO QID PRN 08/17/20 07/03/21 hydralazine 50 mg tablet 50 mg PO BID tab 05/22/21 07/03/21 insulin regular hum U-500 conc 75 unit SUBCUT .Twice a day ml 05/24/21 07/03/21 (Humulin R U-500 (Conc) Insulin Kwikpen) Previous Rx's Medication Instructions Recorded prochlorperazine maleate 5 mg 5 mg PO BID PRN #6 tab 11/12/20 tablet (Compazine) pen needle, diabetic 31 gauge x #100 ea 01/31/2101/22 Allergies Allergy/AdvReac Type Severity Reaction Status Date / Time gentamicin Allergy Severe DIFFICULTY Verified 07/03/21 13:22 BREATHING Iodinated Contrast Media Allergy Severe DIFFICULTY Verified 07/03/21 13:22 BREATHING, NAUSEA, VOMITING latex [LATEX] Allergy Severe ANAPHYLASIS Verified 07/03/21 13:22 morphine Allergy Severe ANAPHYLAXIS Verified 07/03/21 13:22 Penicillins Allergy Severe STOPPED Verified 07/03/21 13:22 BREATHING vancomycin Allergy Severe DIFFICULTY Verified 07/03/21 13:22 BREATHING esomeprazole Allergy Mild UNKNOWN Verified 07/03/21 13:22 azithromycin Allergy Unknown unk Verified 07/03/21 13:22 erythromycin base Allergy Unknown unk Verified 07/03/21 13:22 shellfish derived Allergy Unknown DIFF Verified 07/03/21 13:22 [SHELLFISH DERIVED] BREATHING, SWELLING pantoprazole AdvReac Mild NAUSEA & Verified 07/03/21 13:22 VOMITING Review of Systems Review of Systems: Pertinent positives and negatives as stated in HPI 10 point review of systems is otherwise negative. 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 Other and unspecified hyperlipidemia Pancreatitis T2DM (type 2 diabetes mellitus) Type 2 diabetes mellitus with unspecified complications Vitamin D deficiency Surgical History Hx of cholecystectomy Hx of colonoscopy Hx of endoscopy Hx of hernia repair Hx of hysterectomy Hx of removal of cyst Family History Family History Father Diabetes Mother Diabetes Social History Social History Household Members: Spouse Housing: House Do you presently have visiting nurse or other home services: No Alcohol intake: never Patient Tobacco Use Status: Never used Tobacco Use of substances other than those prescribed or required for medical reasons: No Advance Directives: No service: No Current occupational status: employed Physical Exam Vital Signs: Vital Signs: Last Vital Signs Temp 98.0 F 10/28/21 04:00 Pulse 85 10/28/21 02:44 Resp 16 10/28/21 04:06 BP 191/68 H 10/28/21 04:00 Pulse Ox 99 10/28/21 04:00 BMI result Body Mass Index 38.9 VITAL SIGNS: Reviewed. GENERAL: Well developed, well nourished, and severe distress. HEAD: Normocephalic/atraumatic EYES: PERRLA, EOMI OROPHARYNX: no oral lesions noted, posterior pharynx clear LUNGS: Normal breath sounds. No adventitious sounds or accessory muscle use. SpO2<99> CARDIOVASCULAR: Regular rate and rhythm without noted murmurs, no JVD or lower extremity edema. ABDOMEN: Soft, epigastric tenderness, non-distended with bowel sounds. NEUROLOGIC: Alert and oriented x 4. Strength and sensation to light touch were grossly intact x 4. Course Course Course Narrative: 66-year-old female with history and clinical presentation consistent with acute pancreatitis which was further corroborated on evaluation of investigations. Mundo baron is noted to have a lipase of 1326 and has been started on IV fluid boluses with antiemetics and pain medication. This case was discussed with the inpatient hospitalist who accepts admission. Patient also has CHARLES. MDM - Nausea/Vomiting/Diarrhea Lab Data Result diagrams: 10/28/21 03:10 10/28/21 03:10 Labs: Lab Results 10/28/21 10/28/21 10/28/21 Range/Units 02:21 03:10 03:10 WBC 11.8 H (4.8-10.8) X10*3/uL RBC 4.12 L (4.20-5.50) X10*6/uL Hgb 12.1 (12.0-16.0) g/dl Hct 36.5 L (37.0-47.0) % MCV 88.6 (80.0-98.0) fL MCH 29.4 (27.0-33.0) pg MCHC 33.2 (31.0-35.0) g/dl RDW 13.0 (11.0-16.0) % Plt Count 318 (160-400) X10*3/uL MPV 10.8 (9.4-12.3) fL Immature Gran % (Auto) 0.3 (0.0-0.4) % Neut % (Auto) 85.3 H (45-73) % Lymph % (Auto) 8.2 L (20-40) % [place] % (Auto) 4.5 (2-11) % Eos % (Auto) 1.3 (0-4) % Baso % (Auto) 0.4 (0-2) % Lymph # (Auto) 1.0 L (1.2-4.9) X10*3/uL [place] # (Auto) 0.5 (0.1-1.2) X10*3/uL Eos # (Auto) 0.2 (0.0-0.4) X10*3/uL Baso # (Auto) 0.1 (0.0-0.2) X10*3/uL Abs Immat Gran (auto) 0.04 H (0.00-0.03) X10*3/uL Absolute Neuts (auto) 10.0 H (2.0-8.3) x10*3/uL Absolute Nucleated RBC 0.000 (0.0-0.012) X10*3/uL Nucleated RBC % (auto) 0.0 (0.0-0.2) /100WBC Sodium 134 L (135-145) mmol/L Potassium 4.7 (3.3-5.1) mmol/L Chloride 100 (96-108) mmol/L Carbon Dioxide 22 (22-29) mmol/L Anion Gap 17 (12-20) BUN 25 H (9-16) mg/dL Creatinine 1.46 H (0.5-1.4) mg/dL Estim Creat Clear Calc 41.5 Estimated GFR 36 Random Glucose 289 H (60-115) mg/dL Calcium 10.0 (8.4-10.2) mg/dL Total Bilirubin 0.6 (0.0-1.0) mg/dL Direct Bilirubin 0.2 (0.0-0.5) mg/dL AST 25 D (5-31) U/L ALT 15 (0-31) U/L Alkaline Phosphatase 67 (39-117) U/L Total Protein 7.7 (6.5-8.0) g/dL Albumin 4.3 (3.5-5.0) g/dL Lipase 1326 H (8-78) U/L Urine Color Urine Appearance Urine pH (5.0-8.0) Ur Specific [place] (1.005-1.025) Urine Protein (NEG-TRACE) MG/DL Urine Glucose (UA) (NEG) MG/DL Urine Ketones (NEG) MG/DL Urine Blood (NEG) Urine Nitrite (NEG) Ur Leukocyte Esterase (NEG) Urine RBC (0) /HPF Urine WBC (0-4) /HPF Ur Squamous Epith Cells /LPF Urine Bacteria /LPF COVID-19 (LATONYA) Negative (Negative) COVID-19 Clin Com See Note 10/28/21 Range/Units 03:10 WBC (4.8-10.8) X10*3/uL RBC (4.20-5.50) X10*6/uL Hgb (12.0-16.0) g/dl Hct (37.0-47.0) % MCV (80.0-98.0) fL MCH (27.0-33.0) pg MCHC (31.0-35.0) g/dl RDW (11.0-16.0) % Plt Count (160-400) X10*3/uL MPV (9.4-12.3) fL Immature Gran % (Auto) (0.0-0.4) % Neut % (Auto) (45-73) % Lymph % (Auto) (20-40) % [place] % (Auto) (2-11) % Eos % (Auto) (0-4) % Baso % (Auto) (0-2) % Lymph # (Auto) (1.2-4.9) X10*3/uL [place] # (Auto) (0.1-1.2) X10*3/uL Eos # (Auto) (0.0-0.4) X10*3/uL Baso # (Auto) (0.0-0.2) X10*3/uL Abs Immat Gran (auto) (0.00-0.03) X10*3/uL Absolute Neuts (auto) (2.0-8.3) x10*3/uL Absolute Nucleated RBC (0.0-0.012) X10*3/uL Nucleated RBC % (auto) (0.0-0.2) /100WBC Sodium (135-145) mmol/L Potassium (3.3-5.1) mmol/L Chloride (96-108) mmol/L Carbon Dioxide (22-29) mmol/L Anion Gap (12-20) BUN (9-16) mg/dL Creatinine (0.5-1.4) mg/dL Estim Creat Clear Calc Estimated GFR Random Glucose (60-115) mg/dL Calcium (8.4-10.2) mg/dL Total Bilirubin (0.0-1.0) mg/dL Direct Bilirubin (0.0-0.5) mg/dL AST (5-31) U/L ALT (0-31) U/L Alkaline Phosphatase (39-117) U/L Total Protein (6.5-8.0) g/dL Albumin (3.5-5.0) g/dL Lipase (8-78) U/L Urine Color YELLOW Urine Appearance CLEAR Urine pH 7.5 (5.0-8.0) Ur Specific [place] 1.020 (1.005-1.025) Urine Protein NEG (NEG-TRACE) MG/DL Urine Glucose (UA) >=1000 H (NEG) MG/DL Urine Ketones NEG (NEG) MG/DL Urine Blood NEG (NEG) Urine Nitrite NEG (NEG) Ur Leukocyte Esterase NEG (NEG) Urine RBC 1-4 (0) /HPF Urine WBC 1-4 (0-4) /HPF Ur Squamous Epith Cells 1+ /LPF Urine Bacteria 1+ /LPF COVID-19 (LATONYA) (Negative) COVID-19 Clin Com ECG Data Attestation: I personally reviewed and interpreted this ECG as follows: Prior ECG tracings: available for review Interpretation: NSR, HR- 93, no STEMI, [place] /QRS /QTC are within normal limits. Critical Care Time Critical Care Time Critical Care Time: Yes Total Critical Care Time: 30 Attestation: I personally attest to this time spent taking care of the patient. Discharge Plan Discharge Clinical Impression: Acute pancreatitis, CHARLES (acute kidney injury) Patient Disposition: Admitted As Inpatient Prescriptions: No Action prochlorperazine maleate [Compazine] 5 mg tablet 5 mg PO BID PRN (Reason: nausea and vomiting) Qty: 6 0RF amlodipine 10 mg tablet 10 mg PO DAILY 0RF furosemide 40 mg tablet 40 mg PO DAILY 0RF fenofibrate nanocrystallized 145 mg tablet 145 mg PO DAILY 0RF lansoprazole 30 mg capsule,delayed release(DR/EC) 30 mg PO BID 0RF enalapril maleate 20 mg tablet 20 mg PO BID 0RF metoprolol tartrate 100 mg tablet 100 mg PO BID 0RF atorvastatin 40 mg tablet 40 mg PO DAILY 0RF fentanyl 25 mcg/hr patch 72 hour 1 patch topical Q3D 0RF oxycodone 10 mg tablet 10 mg PO QID PRN (Reason: Pain) 0RF gabapentin 300 mg capsule 300 mg PO BID PRN (Reason: pain) 0RF albuterol sulfate 90 mcg/actuation HFA aerosol inhaler 1 - 2 puff inhalation Q4-6H PRN (Reason: Shortness Of Breath Or Wheezing) 0RF hydralazine 50 mg tablet 50 mg PO BID 0RF (DME) pen needle, diabetic 31 gauge x 5/16 needle See Rx Instructions ea subcut QID Qty: 100 6RF Rx Instructions: Twice a day Humulin R U-500 (Conc) Kwikpen 500 unit/mL (3 mL) insulin pen 75 unit subcut .Twice a day 0RF Rx Instructions: 75units before breakfast and dinner
[2021-10-28] MEDS: HYDROmorphone HCl 0.5 MG/0.5 ML SYRINGE IVPUSH ×5 (04:26→23:05)
[2021-10-28] MEDS: Metoclopramide HCl 10 MG/2 ML VIAL IVPUSH (04:27)
[2021-10-28] MEDS: ondansetron HCL 4 MG/2 ML VIAL IVPUSH ×2 (04:27→14:42)
[2021-10-28] MEDS: diphenhydrAMINE HCL 50 MG/ML VIAL 25 MG IVPUSH (04:28)
--- NOTE | 2021-10-28 05:08 | P.HPHOSP_ITS ---
History of Present Illness Date of Service: 10/28/21 Chief Complaint: Epigastric pain 66-year-old female with a past medical history of hypertension, hyperlipidemia, diabetes, CAD, history of recurrent pancreatitis secondary to hypertriglyceridemia/pancreatic divisum, even requiring ICU admissions status post surgical spinning durotomy and sphincteroplasty in [place]; history of cholecystectomy, vitamin-D deficiency, history of cervical cancer presented to the hospital with a chief complaint of epigastric pain. Patient reports that for the past 4 days she has been having epigastric pain similar to the prior episodes; unable to tolerate p.o.; associated nausea; denies any vomiting or diarrhea. Denies any chest pain or palpitations. Denies any cough fever shortness of breath. Denies any chest pain palpitations lightheadedness or dizziness. Review of all other systems is negative except mentioned above ER course: Per ER team patient noted a abdominal discomfort in the epigastrium-tender; noted to have a lipase elevated to 1600; concern for recurrent pancreatitis. Admitted to the hospital for further management. 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 Other and unspecified hyperlipidemia Pancreatic divisum Pancreatitis T2DM (type 2 diabetes mellitus) Vitamin D deficiency Family History Father Diabetes Mother Diabetes Surgical History Hx of cholecystectomy Hx of colonoscopy Hx of endoscopy Hx of hernia repair Hx of hysterectomy Hx of removal of cyst Social History Household Members: Spouse Housing: House Do you presently have visiting nurse or other home services: No Alcohol intake: never Patient Tobacco Use Status: Never used Tobacco service: No Current occupational status: employed Meds Allergies Allergy/AdvReac Type Severity Reaction Status Date / Time gentamicin Allergy Severe DIFFICULTY Verified 10/28/21 16:29 BREATHING Iodinated Contrast Media Allergy Severe DIFFICULTY Verified 10/28/21 16:29 BREATHING, NAUSEA, VOMITING latex [LATEX] Allergy Severe ANAPHYLASIS Verified 10/28/21 16:29 morphine Allergy Severe ANAPHYLAXIS Verified 10/28/21 16:29 Penicillins Allergy Severe STOPPED Verified 10/28/21 16:29 BREATHING vancomycin Allergy Severe DIFFICULTY Verified 10/28/21 16:29 BREATHING esomeprazole Allergy Mild UNKNOWN Verified 10/28/21 16:29 azithromycin Allergy Unknown unk Verified 10/28/21 16:29 erythromycin base Allergy Unknown unk Verified 10/28/21 16:29 shellfish derived Allergy Unknown DIFF Verified 10/28/21 16:29 [SHELLFISH DERIVED] BREATHING, SWELLING pantoprazole AdvReac Mild NAUSEA & Verified 10/28/21 16:29 VOMITING Active Medications: Current Medications Albuterol Sulfate (Albuterol Sulfate 90 Mcg 8 Gm Inhaler) 1 - 2 puff INHALE Q4- 6H PRN PRN Reason: Shortness Of Breath Or Wheezing Amlodipine Besylate (Amlodipine Besylate 10 Mg Tablet) 10 mg PO DAILY [facility]; Protocol Atorvastatin Calcium (Atorvastatin Calcium 40 Mg Tablet) 40 mg PO DAILY [facility] Dextrose (Dextrose 50 % 25 Gm/50 Ml Syringe) 25 gm IVPUSH Q15M PRN; Protocol PRN Reason: per Hypoglycemia Standing Ord. Famotidine (Famotidine/Pf 20 Mg/2 Ml Vial) 20 mg IVPUSH BID [facility] Fentanyl (Fentanyl 25 Mcg Patch.Td72) mcg TRANSDERMA Q3D [facility] Glucose (Glucose Gel 15 Gm Gel..Gram.) 15 gm PO Q15M PRN; Protocol PRN Reason: per Hypoglycemia Standing Ord. Hydralazine HCl (Hydralazine Hcl 50 Mg Tablet) 50 mg PO BID [facility]; Protocol Sodium Chloride (Ns) 1,000 mls @ 999 mls/hr IV .Q1H1M [facility] Stop: 10/28/21 05:15 Last Admin: 10/28/21 04:18 Dose: 999 mls/hr Documented by: Sodium Chloride (Ns) 1,000 mls @ 999 mls/hr IV .Q1H1M [facility] Stop: 10/28/21 05:45 Insulin Glargine (Insulin Glargine,Hum.Rec.Anlog 100 Unit/Ml 10 Ml Vial) 30 unit SUBCUT DAILY [facility] Insulin Human Lispro (Insulin Lispro 100 Unit/Ml 3 Ml Vial) 0 unit SUBCUT QIDACHS [facility]; Protocol Metoprolol Tartrate (Metoprolol Tartrate 100 Mg Tablet) 100 mg PO BID [facility]; Protocol Non-Formulary Medication (Fenofibrate Nanocrystallized) 145 mg PO DAILY [facility] Home Medications Medication Instructions Recorded Confirmed Last Taken Type albuterol sulfate 90 mcg/actuation 1 - 2 puff INHALATION Q4H PRN 08/17/20 10/28/21 Unknown History aerosol inhaler amlodipine 10 mg tablet 10 mg PO DAILY 08/17/20 10/28/21 10/28/21 History atorvastatin 40 mg tablet 40 mg PO DAILY 08/17/20 10/28/21 10/28/21 History enalapril maleate 20 mg tablet 20 mg PO BID 08/17/20 10/28/21 10/28/21 History fenofibrate nanocrystallized 145 145 mg PO DAILY 08/17/20 10/28/21 10/27/21 History mg tablet furosemide 40 mg tablet 40 mg PO DAILY 08/17/20 10/28/21 10/27/21 History gabapentin 300 mg capsule 300 mg PO BID PRN 08/17/20 10/28/21 10/27/21 History lansoprazole 30 mg capsule,delayed 30 mg PO DAILY 08/17/20 10/28/21 10/27/21 History release metoprolol tartrate 100 mg tablet 100 mg PO BID 08/17/20 10/28/21 10/27/21 History oxycodone 10 mg tablet 10 mg PO QID PRN 08/17/20 10/28/21 Unknown History insulin regular hum U-500 conc See Protocol SUBCUT BID ml 05/24/21 10/28/21 History (Humulin R U-500 (Conc) Insulin Kwikpen) insulin glargine 100 unit/mL (3 60 unit SUBCUT DAILY 10/28/21 10/28/21 10/26/21 History mL) subcutaneous pen (Lantus Solostar U-100 Insulin) Physical Exam Vital Signs and Narrative: Vital Signs: Last Vital Signs Temp 98.0 F 10/28/21 04:00 Pulse 85 10/28/21 02:44 Resp 16 10/28/21 04:26 BP 191/68 H 10/28/21 04:00 Pulse Ox 99 10/28/21 04:00 BMI result Body Mass Index 38.9 Gen: Appears be in no acute distress HEENT: NCAT, Moist mucosa. Pulmonary: Vesicular breath sounds, fair air entry CVS: Normal S1-S2 Abdomen: BS+, Soft, tender in epigastrium, no guarding no rigidity. Extremities: Warm well perfused Neuro: Alert and awake. Results Labs CBC and Chem 7: 10/29/21 05:47 11/01/21 07:57 Labs: Laboratory Results - last 24 hr 10/28/21 10/28/21 10/28/21 02:21 03:10 03:10 MCV 88.6 MCH 29.4 MCHC 33.2 RDW 13.0 Plt Count 318 MPV 10.8 Immature Gran % (Auto) 0.3 Neut % (Auto) 85.3 H Lymph % (Auto) 8.2 L [place]alf[place] % (Auto) 4.5 Eos % (Auto) 1.3 Baso % (Auto) 0.4 Lymph # (Auto) 1.0 L [place] # (Auto) 0.5 Eos # (Auto) 0.2 Baso # (Auto) 0.1 Abs Immat Gran (auto) 0.04 H Absolute Neuts (auto) 10.0 H Absolute Nucleated RBC 0.000 Nucleated RBC % (auto) 0.0 Anion Gap 17 Estim Creat Clear Calc 41.5 Estimated GFR 36 Random Glucose 289 H Calcium 10.0 Total Bilirubin 0.6 Direct Bilirubin 0.2 AST 25 D ALT 15 Alkaline Phosphatase 67 Total Protein 7.7 Albumin 4.3 Lipase 1326 H Urine Color Urine Appearance Urine pH Ur Specific [place] Urine Protein Urine Glucose (UA) Urine Ketones Urine Blood Urine Nitrite Ur Leukocyte Esterase Urine RBC Urine WBC Ur Squamous Epith Cells Urine Bacteria COVID-19 (LATONYA) Negative COVID-19 Clin Com See Note 10/28/21 03:10 MCV MCH MCHC RDW Plt Count MPV Immature Gran % (Auto) Neut % (Auto) Lymph % (Auto) [place]alf[place] % (Auto) Eos % (Auto) Baso % (Auto) Lymph # (Auto) [place] # (Auto) Eos # (Auto) Baso # (Auto) Abs Immat Gran (auto) Absolute Neuts (auto) Absolute Nucleated RBC Nucleated RBC % (auto) Anion Gap Estim Creat Clear Calc Estimated GFR Random Glucose Calcium Total Bilirubin Direct Bilirubin AST ALT Alkaline Phosphatase Total Protein Albumin Lipase Urine Color YELLOW Urine Appearance CLEAR Urine pH 7.5 Ur Specific [place] 1.020 Urine Protein NEG Urine Glucose (UA) >=1000 H Urine Ketones NEG Urine Blood NEG Urine Nitrite NEG Ur Leukocyte Esterase NEG Urine RBC 1-4 Urine WBC 1-4 Ur Squamous Epith Cells 1+ Urine Bacteria 1+ COVID-19 (LATONYA) COVID-19 Clin Com Assessment and Plan (1) Acute pancreatitis: Status: Resolved (2) CHARLES (acute kidney injury): Status: Inactive Plan 66-year-old female with a past medical history of hypertension, hyperlipidemia, diabetes, CAD, history of recurrent pancreatitis secondary to hypertriglyceridemia/pancreatic divisum, even requiring ICU admissions status post surgical spinning durotomy and sphincteroplasty in [place]; history of cho lecystectomy, vitamin-D deficiency, history of cervical cancer presented to the hospital with a chief complaint of epigastric pain. Noted to have epigastric tenderness, lipase elevated on the labs; admitted for acute pancreatitis. Acute pancreatitis: Patient has similar presentation in the past-> attributed to pancreatic divisum and hypertriglyceridemia. Gastroenterology consult Pain control NPO IV fluids CT abdomen-pending results Will obtain triglyceride levels CHARLES: Baseline creatinine around 1.0. creatinine on presentation was 2.1. Improving to 1.4 on fluids. Avoid nephrotoxins. Hold home Lasix enalapril for now. Hypertensive urgency: Patient's systolic blood pressure in 190s. Also driven by the pain. Continue home medications. Diabetes: Hold home insulin regimen for now. Insulin sliding scale for now. Monitor fingerstick glucose and adjust insulins as needed. DVT prophylaxis: Subcu heparin Code status: Full code Quality Stroke Does the patient have a stroke diagnosis?: No VTE Prior VTE?: No VTE Risk Level:: Medical - moderate - high VTE Device Contraindication: Treatment Not Indicated VTE Drug Contraindication: N/A - Med Ordered
[2021-10-28] MEDS: 0.9 % Sodium Chloride 1,000 ML 50 ML IVCONT (06:45)
[2021-10-28 07:22] LABS: Glucose, Whole Blood 228 mg/dL (60-115)
[2021-10-28 07:45] LABS: Cholesterol 169 mg/dL; HDL Cholesterol 31 mg/dL; LDL Cholesterol Calculated 75 mg/dl; Triglycerides 318 mg/dL
[2021-10-28] MEDS: hydrALAZINE HCl 50 MG TABLET PO ×2 (07:54→20:39)
[2021-10-28] MEDS: Metoprolol Tartrate 100 MG TABLET PO ×2 (07:54→20:39)
[2021-10-28] MEDS: Atorvastatin Calcium 40 MG TABLET PO (07:54)
[2021-10-28] MEDS: Insulin Lispro 100 UNIT/ML 3 ML VIAL SUBCUT ×4 (07:54→20:39)
[2021-10-28] MEDS: Famotidine/PF 20 MG/2 ML VIAL IVPUSH ×2 (07:54→20:39)
[2021-10-28] MEDS: amLODIPine Besylate 10 MG TABLET PO (07:54)
[2021-10-28] MEDS: Insulin Glargine,Hum.rec.anlog 100 UNIT/ML 10 ML VIAL 30 UNIT SUBCUT (07:55)
--- NOTE | 2021-10-28 08:50 | PHA.MEDREC ---
Pharmacy Consult ? Medication Reconciliation Pharmacy has completed the medication reconciliation. Pt is not taking fentanyl patches. She confirmed that she takes 60 units of lantus but was unsure about her Humalog U-500 sliding scale protocol. Pt seemed a little confused about when she last took her medications because she had received some here at the hospital this morning. Ninfa Huang, RosibelD
--- NOTE | 2021-10-28 09:09 | PM.EVENT ---
Event Note Date of Service: 10/28/21 Event Note: I personally saw and examined the patient, I reviewed labs, imaging, medication and admission note.. She has recurernt pancreatitis related to pancreatic divisum.. Pain control. Assessment unchanged from H and P of this morning.
[2021-10-28 11:31] LABS: Glucose, Whole Blood 189 mg/dL (60-115)
--- NOTE | 2021-10-28 14:09 | PM.EVENT ---
Event Note Date of Service: 10/28/21 Event Note: GI consult dictated Acute pancreatitis in setting of pancreas divisum and hyper triglyceridemia. CT shows no complications form this episode. agree with present management.
[2021-10-28] MEDS: Heparin Sodium,Porcine 5,000 UNIT/ML VIAL 5000 UNIT SUBCUT ×2 (14:25→20:46)
[2021-10-28 16:35] LABS: Glucose, Whole Blood 190 mg/dL (60-115)
[2021-10-28 19:57] LABS: Glucose, Whole Blood 245 mg/dL (60-115)
[2021-10-29] VITALS (8 sets, daily range): BP systolic 149–186; BP diastolic 65–76; PULSE 62–74; RESP 16–18; TEMP 36–37.2; O2SAT 95–99
[2021-10-29] MEDS: ondansetron HCL 4 MG/2 ML VIAL IVPUSH (00:10)
--- NOTE | 2021-10-29 01:54 | CONS_ITS ---
DATE OF SERVICE: 10/28/2021 REFERRING PHYSICIAN: Alexei Delgado MD REASON FOR CONSULTATION: Acute pancreatitis. HISTORY OF PRESENT ILLNESS: The patient is a 66-year-old woman, who was admitted to the hospital with abdominal pain and found to have acute pancreatitis. She has a history of pancreatitis in the past on the basis of pancreatic divisum and hypertriglyceridemia and has required hospitalizations in the past for this. She has undergone pancreatic sphincteroplasty and is having her hypertriglyceridemia treated, but has still had episodes of pancreatitis requiring hospitalization. She presented to the emergency room with epigastric pain, which began the day of admission after eating a hamburger and some [place] fries. There was no hematemesis or melena. Evaluation in the emergency department showed elevation of her serum lipase at 1326 with normal liver function tests and a triglyceride of 318. She has been admitted and treated with IV fluids, antiemetics, and pain medications. CT scanning was obtained, which showed acute pancreatitis with no necrosis or peripancreatic fluid collection. PAST MEDICAL HISTORY: 1. Gastroesophageal reflux disease with Ro esophagus. 2. Pancreatitis as above. 3. Pulmonary embolus. 4. Endometrial cancer and hysterectomy. 5. Insulin-dependent diabetes mellitus. 6. Cholecystectomy. CURRENT MEDICATIONS: Her current medication list is reviewed in the chart. ALLERGIES: MULTIPLE MEDICATION ALLERGIES REVIEWED. FAMILY HISTORY: Reviewed and is noncontributory. SOCIAL HISTORY: There is no tobacco, alcohol, or substance abuse. 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 REVIEW OF SYSTEMS: SKIN: No pruritus. HEENT: Negative. CARDIOPULMONARY: No shortness of breath or chest pain. GASTROINTESTINAL: As above. GENITOURINARY: Negative. NEUROPSYCHIATRIC: Negative. PHYSICAL EXAMINATION: GENERAL: Shows a pleasant female, lying comfortably in bed. VITAL SIGNS: Reviewed in electronic medical record and are stable. SKIN: Anicteric. HEENT: Shows no scleral icterus. NECK: Without lymphadenopathy or thyromegaly. LUNGS: Clear. HEART: Shows regular rate and rhythm. S1, S2. No murmur. ABDOMEN: Soft without focal masses. There is epigastric tenderness to palpation. Bowel sounds are present. No organomegaly is noted. EXTREMITIES: Without edema. LABORATORY DATA: Reviewed. IMPRESSION: Acute pancreatitis. At this point, I agree with treating her symptomatically with pain medications, IV fluids, and nothing by mouth as well as antibiotics. If she does have worsening symptoms, I would recommend repeat CT scanning as she has had severe pancreatitis in the past. Thanks you for asking me to see her. I will follow her in the hospital with you. MD RED Maria/OLIVIA / [phone]
[2021-10-29] MEDS: HYDROmorphone HCl 0.5 MG/0.5 ML SYRINGE IVPUSH ×3 (03:03→10:18)
[2021-10-29] MEDS: 0.9 % Sodium Chloride 1,000 ML 50 ML IVCONT (04:34)
[2021-10-29 06:13] LABS: MANUAL DIFF FLAG NO
[2021-10-29] MEDS: amLODIPine Besylate 10 MG TABLET PO (06:14)
[2021-10-29] MEDS: Heparin Sodium,Porcine 5,000 UNIT/ML VIAL 5000 UNIT SUBCUT ×2 (06:14→20:19)
[2021-10-29 06:18] LABS: Basophils Percent Auto 0.4 % (0-2); Eosinophils Absolute Auto 0.1 X10*3/uL (0.0-0.4); Hematocrit 35.4 % (37.0-47.0); Hemoglobin 11.4 g/dl (12.0-16.0); Imm Gran Abs Auto 0.03 X10*3/uL (0.00-0.03); Imm Gran Pct Auto 0.3 % (0.0-0.4); Lymphocytes Absolute Auto 1.2 X10*3/uL (1.2-4.9); Lymphocytes Percent Auto 12.1 % (20-40); Mean Corpuscular HGB Conc 32.2 g/dl (31.0-35.0); Mean Corpuscular Hemoglobin 29.5 pg (27.0-33.0); Mean Corpuscular Volume 91.7 fL (80.0-98.0); Mean Platelet Volume 10.9 fL (9.4-12.3); Monocytes Absolute Auto 0.6 X10*3/uL (0.1-1.2); Monocytes Percent Auto 5.9 % (2-11); Neutrophils Absolute Auto 8.1 x10*3/uL (2.0-8.3); Neutrophils Percent Auto 80.3 % (45-73); Platelet Count 294 X10*3/uL (160-400); Red Blood Count 3.86 X10*6/uL (4.20-5.50); Red Cell Distribution Width 13.1 % (11.0-16.0); White Blood Count 10.1 X10*3/uL (4.8-10.8)
[2021-10-29 06:58] LABS: Anion Gap 13 (12-20); Blood Urea Nitrogen 13 mg/dL (9-16); Carbon Dioxide 23 mmol/L (22-29); Chloride 104 mmol/L (96-108); Creatinine Clr Calc Pharmacy 70.5; Estimated Glomerular Filt Rate > 60; Glucose Random 204 mg/dL (60-115); Potassium 4.5 mmol/L (3.3-5.1); Sodium 135 mmol/L (135-145)
[2021-10-29] MEDS: 0.9 % Sodium Chloride Flush 3 ML SYRINGE IVFLUSH (07:10)
[2021-10-29 07:46] LABS: Glucose, Whole Blood 203 mg/dL (60-115)
[2021-10-29] MEDS: Insulin Glargine,Hum.rec.anlog 100 UNIT/ML 10 ML VIAL 30 UNIT SUBCUT (08:10)
[2021-10-29] MEDS: Fenofibrate 160 MG TABLET PO (08:11)
[2021-10-29] MEDS: Insulin Lispro 100 UNIT/ML 3 ML VIAL SUBCUT ×2 (08:11→16:46)
[2021-10-29] MEDS: Famotidine/PF 20 MG/2 ML VIAL IVPUSH ×2 (08:11→20:17)
[2021-10-29] MEDS: Atorvastatin Calcium 40 MG TABLET PO (08:12)
[2021-10-29] MEDS: hydrALAZINE HCl 50 MG TABLET PO ×2 (08:12→20:17)
[2021-10-29] MEDS: Metoprolol Tartrate 100 MG TABLET PO ×2 (08:12→20:17)
--- NOTE | 2021-10-29 08:40 | P.PNIM_ITS ---
Subjective Subjective Date of Service: 10/29/21 Interval History: Follow-up on acute pancreatitis related to pancreatic divisum, persistent pain albeit better today. Review of Systems Abdominal pain, no nausea vomiting, no fever Physical Exam Vital Signs: Vital Signs: Last Vital Signs Temp 96.8 F 10/29/21 07:22 Pulse 72 10/29/21 07:22 Resp 18 10/29/21 07:22 BP 171/74 H 10/29/21 07:22 Pulse Ox 97 10/29/21 07:22 BMI result Body Mass Index 38.9 Const: Other: General: AO X 3, no acute distress Resp: CTA bilateral CVS: S1,S2,RRR GI: +BS, mild epigastric tenderness, no distention Skin: No rash Neuro: motor grossly intact Psych: appropriate affect Objective Data Active Medications Acetaminophen (Acetaminophen 325 Mg Tablet) 650 mg PO Q6H PRN PRN Reason: Pain, Mild (Pain Scale 1-3) Albuterol Sulfate (Albuterol Sulfate 90 Mcg 8 Gm Inhaler) 1 - 2 puff INHALE Q4H PRN PRN Reason: Shortness Of Breath/Wheezing Amlodipine Besylate (Amlodipine Besylate 10 Mg Tablet) 10 mg PO DAILY [facility]; Protocol Last Admin: 10/29/21 06:14 Dose: 10 mg Documented by: YENIFER Atorvastatin Calcium (Atorvastatin Calcium 40 Mg Tablet) 40 mg PO DAILY [facility] Last Admin: 10/29/21 08:12 Dose: 40 mg Documented by: ASHLEY Dextrose (Dextrose 50 % 25 Gm/50 Ml Syringe) 25 gm IVPUSH Q15M PRN; Protocol PRN Reason: per Hypoglycemia Standing Ord. Famotidine (Famotidine/Pf 20 Mg/2 Ml Vial) 20 mg IVPUSH BID [facility] Last Admin: 10/29/21 08:11 Dose: 20 mg Documented by: ASHLEY Fenofibrate (Fenofibrate 160 Mg Tablet) 160 mg PO DAILY [facility] Last Admin: 10/29/21 08:11 Dose: 160 mg Documented by: ASHLEY Glucose (Glucose Gel 15 Gm Gel..Gram.) 15 gm PO Q15M PRN; Protocol PRN Reason: per Hypoglycemia Standing Ord. Heparin Sodium (Porcine) (Heparin Sodium,Porcine 5,000 Unit/Ml Vial) 5,000 unit SUBCUT Q8H [facility] Last Admin: 10/29/21 06:14 Dose: 5,000 unit Documented by: YENIFER Hydralazine HCl (Hydralazine Hcl 50 Mg Tablet) 50 mg PO BID [facility]; Protocol Last Admin: 10/29/21 08:12 Dose: 50 mg Documented by: ASHLEY Hydromorphone HCl (Hydromorphone Hcl 0.5 Mg/0.5 Ml Syringe) 0.5 mg IVPUSH Q4H PRN; Protocol PRN Reason: Pain, Severe (Pain Scale 7-10) Last Admin: 10/29/21 07:09 Dose: 0.5 mg Documented by: ASHLEY Sodium Chloride (Ns) 1,000 mls @ 50 mls/hr IVCONT .Q20H [facility] Last Admin: 10/29/21 04:34 Dose: 50 mls/hr Documented by: YENIFER Insulin Glargine (Insulin Glargine,Hum.Rec.Anlog 100 Unit/Ml 10 Ml Vial) 30 unit SUBCUT DAILY [facility] Last Admin: 10/29/21 08:10 Dose: 30 unit Documented by: ASHLEY Insulin Human Lispro (Insulin Lispro 100 Unit/Ml 3 Ml Vial) 0 unit SUBCUT QIDACHS [facility]; Protocol Last Admin: 10/29/21 08:11 Dose: 4 unit Documented by: ASHLEY Melatonin (Melatonin 3 Mg Tablet) 6 mg PO BEDTIME PRN PRN Reason: Insomnia Metoprolol Tartrate (Metoprolol Tartrate 100 Mg Tablet) 100 mg PO BID [facility]; Protocol Last Admin: 10/29/21 08:12 Dose: 100 mg Documented by: ASHLEY Ondansetron HCl (Ondansetron Hcl 4 Mg/2 Ml Vial) 4 mg IVPUSH Q8H PRN PRN Reason: Nausea and Vomiting Last Admin: 10/29/21 00:10 Dose: 4 mg Documented by: YENIFER Senna (Sennosides 8.6 Mg Tablet) 17.2 mg PO BEDTIME PRN PRN Reason: Constipation Sodium Chloride (0.9 % Sodium Chloride Flush 3 Ml Syringe) 3 ml IVFLUSH QSHIFT [facility] Last Admin: 10/29/21 07:10 Dose: 3 ml Documented by: ASHLEY Labs CBC & Chem 7: 10/29/21 05:47 10/29/21 05:47 Labs: Laboratory Results - last 24 hr 10/28/21 10/28/21 10/28/21 11:27 16:14 19:50 MCV MCH MCHC RDW Plt Count MPV Immature Gran % (Auto) Neut % (Auto) Lymph % (Auto) [place] % (Auto) Eos % (Auto) Baso % (Auto) Lymph # (Auto) [place] # (Auto) Eos # (Auto) Baso # (Auto) Abs Immat Gran (auto) Absolute Neuts (auto) Absolute Nucleated RBC Nucleated RBC % (auto) Anion Gap Estim Creat Clear Calc Estimated GFR POC Glucose 189 H 190 H 245 H Random Glucose Calcium 10/29/21 10/29/21 10/29/21 05:47 05:47 07:21 MCV 91.7 MCH 29.5 MCHC 32.2 RDW 13.1 Plt Count 294 MPV 10.9 Immature Gran % (Auto) 0.3 Neut % (Auto) 80.3 H Lymph % (Auto) 12.1 L [place] % (Auto) 5.9 Eos % (Auto) 1.0 Baso % (Auto) 0.4 Lymph # (Auto) 1.2 [place] # (Auto) 0.6 Eos # (Auto) 0.1 Baso # (Auto) 0.0 Abs Immat Gran (auto) 0.03 Absolute Neuts (auto) 8.1 Absolute Nucleated RBC 0.000 Nucleated RBC % (auto) 0.0 Anion Gap 13 Estim Creat Clear Calc 70.5 Estimated GFR > 60 POC Glucose 203 H Random Glucose 204 H Calcium 9.0 D Assessment and Plan (1) Acute pancreatitis: Status: Acute (2) Pancreatic divisum: Status: Acute (3) HTN (hypertension): Status: Acute (4) HLD (hyperlipidemia): Status: Acute (5) T2DM (type 2 diabetes mellitus): Status: Acute Plan 66-year-old female with a past medical history of hypertension, hyperlipidemia, diabetes, CAD, history of recurrent pancreatitis secondary to hypertriglyceridemia/pancreatic divisum, even requiring ICU admissions status post surgical spinning durotomy and sphincteroplasty in [place]; history of cholecystectomy, vitamin-D deficiency, history of cervical cancer presented to the hospital with a chief complaint of epigastric pain. Noted to have epigastric tenderness, lipase elevated on the labs; admitted for acute pancreatitis. Acute pancreatitis, recurrent d/t pancreatic divisum, TG not not high as cause. -Pain control, hydration, recheck lipase, advance diet slowly CHARLES: pre renal azotemia and has resolved Hypertensive-- uncontrolled. continue metoprolol 100 b.i.d., Norvasc 10 mg daily, hydralazine 50 mg b.i.d.. Add lisinopril 10 mg daily Diabetes: continue Lantus 30, sliding scale insulin DVT prophylaxis: Subcu heparin Code status: Full code Quality Stroke Does the patient have a stroke diagnosis?: No VTE Prior VTE?: No VTE Risk Level:: Medical - moderate - high VTE Device Contraindication: Treatment Not Indicated VTE Drug Contraindication: N/A - Med Ordered
[2021-10-29 09:36] LABS: Amylase 492 U/L (28-100); Lipase 829 U/L (8-78)
[2021-10-29] MEDS: lisinopriL 10 MG TABLET PO (09:54)
[2021-10-29] MEDS: 0.9 % Sodium Chloride 1,000 ML 100 ML IVCONT ×2 (10:31→20:20)
[2021-10-29 11:52] LABS: Glucose, Whole Blood 150 mg/dL (60-115)
[2021-10-29] MEDS: HYDROmorphone HCl 1 MG/ML SYRINGE IVPUSH ×3 (14:18→22:28)
--- NOTE | 2021-10-29 14:22 | MHC.CM.PN ---
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
[2021-10-29 16:31] LABS: Glucose, Whole Blood 170 mg/dL (60-115)
[2021-10-29 20:32] LABS: Glucose, Whole Blood 137 mg/dL (60-115)
[2021-10-30] MEDS: ondansetron HCL 4 MG/2 ML VIAL IVPUSH ×3 (02:14→19:26)
[2021-10-30] MEDS: HYDROmorphone HCl 1 MG/ML SYRINGE IVPUSH ×6 (02:54→23:54)
[2021-10-30 03:55] VITALS: BP 165/78; PULSE 71; RESP 16; TEMP 37.1; O2SAT 94
[2021-10-30] MEDS: Heparin Sodium,Porcine 5,000 UNIT/ML VIAL 5000 UNIT SUBCUT ×3 (04:02→21:34)
[2021-10-30] MEDS: 0.9 % Sodium Chloride 1,000 ML 100 ML IVCONT ×3 (04:03→23:55)
[2021-10-30 07:48] VITALS: BP 141/47; PULSE 68; RESP 18; TEMP 36.6; O2SAT 97
[2021-10-30] MEDS: Metoprolol Tartrate 100 MG TABLET PO ×2 (07:57→19:27)
[2021-10-30] MEDS: hydrALAZINE HCl 50 MG TABLET PO ×2 (07:57→19:27)
[2021-10-30] MEDS: amLODIPine Besylate 10 MG TABLET PO (07:57)
[2021-10-30] MEDS: Fenofibrate 160 MG TABLET PO (07:57)
[2021-10-30] MEDS: Famotidine/PF 20 MG/2 ML VIAL IVPUSH ×2 (07:57→19:27)
[2021-10-30] MEDS: Atorvastatin Calcium 40 MG TABLET PO (07:58)
[2021-10-30] MEDS: lisinopriL 10 MG TABLET PO (07:58)
[2021-10-30 08:08] LABS: Glucose, Whole Blood 111 mg/dL (60-115)
--- NOTE | 2021-10-30 10:07 | P.PNIM_ITS ---
Subjective Subjective Date of Service: 10/30/21 Interval History: Follow-up on acute pancreatitis related to pancreatic divisum, pain is better Review of Systems Gen: no fever Resp: no sob, no cough CV: no chest, no EDWARDS, no leg edema GI: + abd pain Neuro: No confusion Physical Exam Vital Signs: Vital Signs: Last Vital Signs Temp 97.8 F 10/30/21 07:48 Pulse 68 10/30/21 07:48 Resp 18 10/30/21 07:48 BP 141/47 H 10/30/21 07:48 Pulse Ox 97 10/30/21 07:48 BMI result Body Mass Index 38.9 Const: Other: General: AO X 3, no acute distress Resp: CTA bilateral CVS: S1,S2,RRR GI: +BS, mild epigastric tenderness, no distention Skin: No rash Neuro: motor grossly intact Psych: appropriate affect Objective Data Active Medications Acetaminophen (Acetaminophen 325 Mg Tablet) 650 mg PO Q6H PRN PRN Reason: Pain, Mild (Pain Scale 1-3) Albuterol Sulfate (Albuterol Sulfate 90 Mcg 8 Gm Inhaler) 1 - 2 puff INHALE Q4H PRN PRN Reason: Shortness Of Breath/Wheezing Amlodipine Besylate (Amlodipine Besylate 10 Mg Tablet) 10 mg PO DAILY [facility]; Protocol Last Admin: 10/30/21 07:57 Dose: 10 mg Documented by: ANTHONY Atorvastatin Calcium (Atorvastatin Calcium 40 Mg Tablet) 40 mg PO DAILY [facility] Last Admin: 10/30/21 07:58 Dose: 40 mg Documented by: ANTHONY Dextrose (Dextrose 50 % 25 Gm/50 Ml Syringe) 25 gm IVPUSH Q15M PRN; Protocol PRN Reason: per Hypoglycemia Standing Ord. Famotidine (Famotidine/Pf 20 Mg/2 Ml Vial) 20 mg IVPUSH BID [facility] Last Admin: 10/30/21 07:57 Dose: 20 mg Documented by: ANTHONY Fenofibrate (Fenofibrate 160 Mg Tablet) 160 mg PO DAILY [facility] Last Admin: 10/30/21 07:57 Dose: 160 mg Documented by: ANTHONY Glucose (Glucose Gel 15 Gm Gel..Gram.) 15 gm PO Q15M PRN; Protocol PRN Reason: per Hypoglycemia Standing Ord. Heparin Sodium (Porcine) (Heparin Sodium,Porcine 5,000 Unit/Ml Vial) 5,000 unit SUBCUT Q8H [facility] Last Admin: 10/30/21 04:02 Dose: 5,000 unit Documented by: KATI Hydralazine HCl (Hydralazine Hcl 50 Mg Tablet) 50 mg PO BID [facility]; Protocol Last Admin: 10/30/21 07:57 Dose: 50 mg Documented by: ANTHONY Hydromorphone HCl (Hydromorphone Hcl 1 Mg/Ml Syringe) 1 mg IVPUSH Q4H PRN; Protocol PRN Reason: Pain, Severe (Pain Scale 7-10) Last Admin: 10/30/21 06:52 Dose: 1 mg Documented by: KATI Sodium Chloride (Ns) 1,000 mls @ 100 mls/hr IVCONT .Q10H [facility] Last Admin: 10/30/21 04:03 Dose: 100 mls/hr Documented by: KATI Insulin Glargine (Insulin Glargine,Hum.Rec.Anlog 100 Unit/Ml 10 Ml Vial) 30 unit SUBCUT DAILY [facility] Last Admin: 10/30/21 08:49 Dose: Not Given Documented by: ANTHONY Non-Admin Reason: npo and poc 111 Insulin Human Lispro (Insulin Lispro 100 Unit/Ml 3 Ml Vial) 0 unit SUBCUT QIDACHS [facility]; Protocol Last Admin: 10/30/21 07:52 Dose: Not Given Documented by: ANTHONY Non-Admin Reason: No Insulin Coverage Lisinopril (Lisinopril 10 Mg Tablet) 10 mg PO DAILY [facility]; Protocol Last Admin: 10/30/21 07:58 Dose: 10 mg Documented by: ANTHONY Melatonin (Melatonin 3 Mg Tablet) 6 mg PO BEDTIME PRN PRN Reason: Insomnia Metoprolol Tartrate (Metoprolol Tartrate 100 Mg Tablet) 100 mg PO BID [facility]; Protocol Last Admin: 10/30/21 07:57 Dose: 100 mg Documented by: ANTHONY Ondansetron HCl (Ondansetron Hcl 4 Mg/2 Ml Vial) 4 mg IVPUSH Q8H PRN PRN Reason: Nausea and Vomiting Last Admin: 10/30/21 09:58 Dose: 4 mg Documented by: ANTHONY Senna (Sennosides 8.6 Mg Tablet) 17.2 mg PO BEDTIME PRN PRN Reason: Constipation Sodium Chloride (0.9 % Sodium Chloride Flush 3 Ml Syringe) 3 ml IVFLUSH QSHIFT [facility] Last Admin: 10/30/21 07:56 Dose: Not Given Documented by: ANTHONY Non-Admin Reason: IV Running Labs CBC & Chem 7: 10/29/21 05:47 10/29/21 05:47 Labs: Laboratory Results - last 24 hr 10/29/21 10/29/21 10/29/21 11:12 16:22 19:58 POC Glucose 150 H 170 H 137 H 10/30/21 07:47 POC Glucose 111 Assessment and Plan (1) Acute pancreatitis: Status: Acute (2) Pancreatic divisum: Status: Acute (3) HTN (hypertension): Status: Acute (4) HLD (hyperlipidemia): Status: Acute (5) T2DM (type 2 diabetes mellitus): Status: Acute Plan 66-year-old female with a past medical history of hypertension, hyperlipidemia, diabetes, CAD, history of recurrent pancreatitis secondary to hypertriglyceridemia/pancreatic divisum, even requiring ICU admissions status post surgical spinning durotomy and sphincteroplasty in [place]; history of cholecystectomy, vitamin-D deficiency, history of cervical cancer presented to the hospital with a chief complaint of epigastric pain. Noted to have epigastric tenderness, lipase elevated on the labs; admitted for acute pancreatitis. Acute pancreatitis, recurrent d/t pancreatic divisum, TG not not high as cause. -Pain control, hydration, recheck lipase, start liquid diet today CHARLES: pre renal azotemia and has resolved HTN-- uncontrolled. continue metoprolol 100 b.i.d., Norvasc 10 mg daily, hydralazine 50 mg b.i.d.. lisinopril 10 mg daily Diabetes: continue Lantus 30, sliding scale insulin DVT prophylaxis: Subcu heparin Code status: Full code Quality Stroke Does the patient have a stroke diagnosis?: No VTE Prior VTE?: No VTE Risk Level:: Medical - moderate - high VTE Device Contraindication: Treatment Not Indicated VTE Drug Contraindication: N/A - Med Ordered
[2021-10-30 11:57] VITALS: BP 147/66; PULSE 69; RESP 18; TEMP 36.4; O2SAT 96
[2021-10-30 12:05] LABS: Glucose, Whole Blood 105 mg/dL (60-115)
[2021-10-30 16:00] VITALS: BP 162/68; PULSE 74; RESP 18; TEMP 36.4; O2SAT 97
[2021-10-30] MEDS: Loperamide HCl 2 MG CAPSULE PO ×2 (16:20→22:53)
[2021-10-30 16:50] LABS: Glucose, Whole Blood 128 mg/dL (60-115)
[2021-10-30 19:06] VITALS: BP 140/63; PULSE 80; RESP 18; TEMP 36.4; O2SAT 99
[2021-10-30] MEDS: 0.9 % Sodium Chloride Flush 3 ML SYRINGE IVFLUSH (19:28)
[2021-10-30 23:27] VITALS: BP 138/62; PULSE 77; RESP 18; TEMP 36.9; O2SAT 99
[2021-10-31 03:54] VITALS: BP 132/68; PULSE 75; RESP 16; TEMP 36.7; O2SAT 99
[2021-10-31] MEDS: HYDROmorphone HCl 1 MG/ML SYRINGE IVPUSH ×5 (04:06→20:45)
[2021-10-31] MEDS: Heparin Sodium,Porcine 5,000 UNIT/ML VIAL 5000 UNIT SUBCUT ×3 (05:27→22:07)
[2021-10-31 07:27] LABS: Glucose, Whole Blood 113 mg/dL (60-115)
[2021-10-31 07:34] VITALS: BP 188/75; PULSE 81; RESP 20; TEMP 37.4; O2SAT 98
[2021-10-31] MEDS: Atorvastatin Calcium 40 MG TABLET PO (08:25)
[2021-10-31] MEDS: hydrALAZINE HCl 50 MG TABLET PO ×2 (08:25→20:44)
[2021-10-31] MEDS: Fenofibrate 160 MG TABLET PO (08:25)
[2021-10-31] MEDS: lisinopriL 10 MG TABLET PO (08:25)
[2021-10-31] MEDS: 0.9 % Sodium Chloride Flush 3 ML SYRINGE IVFLUSH ×3 (08:25→22:59)
[2021-10-31] MEDS: Metoprolol Tartrate 100 MG TABLET PO ×2 (08:25→20:44)
[2021-10-31] MEDS: amLODIPine Besylate 10 MG TABLET PO (08:25)
[2021-10-31] MEDS: Famotidine/PF 20 MG/2 ML VIAL IVPUSH ×2 (08:26→20:44)
[2021-10-31 09:13] LABS: Anion Gap 14 (12-20); Blood Urea Nitrogen 14 mg/dL (9-16); Calcium 8.6 mg/dL (8.4-10.2); Carbon Dioxide 19 mmol/L (22-29); Chloride 110 mmol/L (96-108); Creatinine Clr Calc Pharmacy 84.2; Estimated Glomerular Filt Rate > 60; Glucose Random 115 mg/dL (60-115); Lipase 136 U/L (8-78); Potassium 3.7 mmol/L (3.3-5.1); Sodium 139 mmol/L (135-145)
--- NOTE | 2021-10-31 09:21 | P.PNIM_ITS ---
Subjective Subjective Date of Service: 10/31/21 Interval History: Follow-up on acute pancreatitis related to pancreatic divisum. She is still c/o signficant pain despite lipase down signficantly Review of Systems Gen: no fever Resp: no sob, no cough CV: no chest, no EDWARDS, no leg edema GI: + abd pain Neuro: No confusion Physical Exam Vital Signs: Vital Signs: Last Vital Signs Temp 99.3 F 10/31/21 07:34 Pulse 81 10/31/21 07:34 Resp 20 10/31/21 07:34 BP 188/75 H 10/31/21 07:34 Pulse Ox 98 10/31/21 07:34 BMI result Body Mass Index 38.9 Const: Other: General: AO X 3, no acute distress Resp: CTA bilateral CVS: S1,S2,RRR GI: +BS, mild epigastric tenderness, no distention Skin: No rash Neuro: motor grossly intact Psych: appropriate affect Objective Data Active Medications Acetaminophen (Acetaminophen 325 Mg Tablet) 650 mg PO Q6H PRN PRN Reason: Pain, Mild (Pain Scale 1-3) Albuterol Sulfate (Albuterol Sulfate 90 Mcg 8 Gm Inhaler) 1 - 2 puff INHALE Q4H PRN PRN Reason: Shortness Of Breath/Wheezing Amlodipine Besylate (Amlodipine Besylate 10 Mg Tablet) 10 mg PO DAILY [facility]; Protocol Last Admin: 10/31/21 08:25 Dose: 10 mg Documented by: GUEVARA Atorvastatin Calcium (Atorvastatin Calcium 40 Mg Tablet) 40 mg PO DAILY [facility] Last Admin: 10/31/21 08:25 Dose: 40 mg Documented by: GUEVARA Dextrose (Dextrose 50 % 25 Gm/50 Ml Syringe) 25 gm IVPUSH Q15M PRN; Protocol PRN Reason: per Hypoglycemia Standing Ord. Famotidine (Famotidine/Pf 20 Mg/2 Ml Vial) 20 mg IVPUSH BID [facility] Last Admin: 10/31/21 08:26 Dose: 20 mg Documented by: GUEVARA Fenofibrate (Fenofibrate 160 Mg Tablet) 160 mg PO DAILY [facility] Last Admin: 10/31/21 08:25 Dose: 160 mg Documented by: GUEVARA Glucose (Glucose Gel 15 Gm Gel..Gram.) 15 gm PO Q15M PRN; Protocol PRN Reason: per Hypoglycemia Standing Ord. Heparin Sodium (Porcine) (Heparin Sodium,Porcine 5,000 Unit/Ml Vial) 5,000 unit SUBCUT Q8H [facility] Last Admin: 10/31/21 05:27 Dose: 5,000 unit Documented by: CHAPINCITO Hydralazine HCl (Hydralazine Hcl 50 Mg Tablet) 50 mg PO BID [facility]; Protocol Last Admin: 10/31/21 08:25 Dose: 50 mg Documented by: GUEVARA Hydromorphone HCl (Hydromorphone Hcl 1 Mg/Ml Syringe) 1 mg IVPUSH Q4H PRN; Protocol PRN Reason: Pain, Severe (Pain Scale 7-10) Last Admin: 10/31/21 08:20 Dose: 1 mg Documented by: GUEVARA Insulin Glargine (Insulin Glargine,Hum.Rec.Anlog 100 Unit/Ml 10 Ml Vial) 30 unit SUBCUT DAILY [facility] Last Admin: 10/31/21 08:27 Dose: Not Given Documented by: GUEVARA Non-Admin Reason: No Insulin Coverage Insulin Human Lispro (Insulin Lispro 100 Unit/Ml 3 Ml Vial) 0 unit SUBCUT QIDACHS [facility]; Protocol Last Admin: 10/31/21 07:27 Dose: Not Given Documented by: GUEVARA Non-Admin Reason: No Insulin Coverage Lisinopril (Lisinopril 10 Mg Tablet) 10 mg PO DAILY [facility]; Protocol Last Admin: 10/31/21 08:25 Dose: 10 mg Documented by: GUEVARA Loperamide HCl (Loperamide Hcl 2 Mg Capsule) 2 mg PO Q4H PRN PRN Reason: Diarrhea Last Admin: 10/30/21 22:53 Dose: 2 mg Documented by: CHAPINCITO Melatonin (Melatonin 3 Mg Tablet) 6 mg PO BEDTIME PRN PRN Reason: Insomnia Metoprolol Tartrate (Metoprolol Tartrate 100 Mg Tablet) 100 mg PO BID [facility]; P rotocol Last Admin: 10/31/21 08:25 Dose: 100 mg Documented by: GUEVARA Ondansetron HCl (Ondansetron Hcl 4 Mg/2 Ml Vial) 4 mg IVPUSH Q8H PRN PRN Reason: Nausea and Vomiting Last Admin: 10/30/21 19:26 Dose: 4 mg Documented by: CHAPINCITO Senna (Sennosides 8.6 Mg Tablet) 17.2 mg PO BEDTIME PRN PRN Reason: Constipation Sodium Chloride (0.9 % Sodium Chloride Flush 3 Ml Syringe) 3 ml IVFLUSH QSHIFT [facility] Last Admin: 10/31/21 08:25 Dose: 3 ml Documented by: GUEVARA Labs CBC & Chem 7: 10/29/21 05:47 10/31/21 08:31 Labs: Laboratory Results - last 24 hr 10/30/21 10/30/21 10/31/21 11:57 16:03 07:21 Anion Gap Estim Creat Clear Calc Estimated GFR POC Glucose 105 128 H 113 Random Glucose Calcium Lipase 10/31/21 08:31 Anion Gap 14 Estim Creat Clear Calc 84.2 Estimated GFR > 60 POC Glucose Random Glucose 115 Calcium 8.6 Lipase 136 H Assessment and Plan (1) Acute pancreatitis: Status: Acute (2) Pancreatic divisum: Status: Acute (3) HTN (hypertension): Status: Acute (4) HLD (hyperlipidemia): Status: Acute (5) T2DM (type 2 diabetes mellitus): Status: Acute Plan 66-year-old female with a past medical history of hypertension, hyperlipidemia, diabetes, CAD, history of recurrent pancreatitis secondary to hypertriglyce ridemia/pancreatic divisum, even requiring ICU admissions status post surgical spinning durotomy and sphincteroplasty in [place]; history of cholecystectomy, vitamin-D deficiency, history of cervical cancer presented to the hospital with a chief complaint of epigastric pain. Noted to have epigastric tenderness, lipase elevated on the labs; admitted for acute pancreatitis. Acute pancreatitis, recurrent d/t pancreatic divisum, TG not not high as cause. -Clinically resolving, Lipase has dropped to 136 from 1336 -Pain control, hydration, recheck lipase, advance diet CHARLES: pre renal azotemia and has resolved HTN-- uncontrolled. Maybe pain is contributing to this, continue metoprolol 100 b.i.d., Norvasc 10 mg daily, hydralazine 50 mg b.i.d.. lisinopril 10 mg daily added 10/30 Diabetes: continue Lantus 30, sliding scale insulin DVT prophylaxis: Subcu heparin Code status: Full code Quality Stroke Does the patient have a stroke diagnosis?: No VTE Prior VTE?: No VTE Risk Level:: Medical - moderate - high VTE Device Contraindication: Treatment Not Indicated VTE Drug Contraindication: N/A - Med Ordered
[2021-10-31 10:47] VITALS: BP 153/72; PULSE 71; RESP 20; TEMP 36.9; O2SAT 98
[2021-10-31 11:08] LABS: Glucose, Whole Blood 128 mg/dL (60-115)
[2021-10-31 11:12] LABS: Glucose, Whole Blood 117 mg/dL (60-115)
[2021-10-31 15:45] VITALS: BP 152/64; PULSE 73; RESP 18; TEMP 35.9; O2SAT 98
--- NOTE | 2021-10-31 16:06 | MHC.CM.PN ---
EMR REVIEWED, PT'S DIET ADVANCED TO FULL LIQUIDS, ANTIC D/C 1-2 DAYS W/NO SERVICES AND FAMILY FOR TRANSPORT.
[2021-10-31 16:15] LABS: Glucose, Whole Blood 143 mg/dL (60-115)
[2021-10-31 19:51] VITALS: BP 153/61; PULSE 82; RESP 18; TEMP 36.4; O2SAT 98
[2021-10-31 20:03] LABS: Glucose, Whole Blood 189 mg/dL (60-115)
[2021-10-31] MEDS: Insulin Lispro 100 UNIT/ML 3 ML VIAL SUBCUT (20:45)
[2021-10-31] MEDS: Melatonin 3 MG TABLET 6 MG PO (22:07)
[2021-10-31 23:27] VITALS: BP 137/60; PULSE 68; RESP 18; TEMP 36.6; O2SAT 97
[2021-11-01] MEDS: HYDROmorphone HCl 1 MG/ML SYRINGE IVPUSH ×4 (01:23→12:33)
[2021-11-01 03:15] VITALS: BP 166/72; PULSE 72; RESP 18; TEMP 36.6; O2SAT 98
[2021-11-01] MEDS: Heparin Sodium,Porcine 5,000 UNIT/ML VIAL 5000 UNIT SUBCUT ×3 (05:40→21:30)
[2021-11-01 07:14] VITALS: BP 147/66; PULSE 73; RESP 18; TEMP 36.1; O2SAT 95
[2021-11-01 07:44] LABS: Glucose, Whole Blood 191 mg/dL (60-115)
[2021-11-01] MEDS: Famotidine/PF 20 MG/2 ML VIAL IVPUSH (07:46)
[2021-11-01] MEDS: Atorvastatin Calcium 40 MG TABLET PO (07:46)
[2021-11-01] MEDS: lisinopriL 10 MG TABLET PO (07:47)
[2021-11-01] MEDS: Fenofibrate 160 MG TABLET PO (07:47)
[2021-11-01] MEDS: Metoprolol Tartrate 100 MG TABLET PO ×2 (07:47→21:39)
[2021-11-01] MEDS: amLODIPine Besylate 10 MG TABLET PO (07:47)
[2021-11-01] MEDS: hydrALAZINE HCl 50 MG TABLET PO ×2 (07:48→21:28)
[2021-11-01] MEDS: 0.9 % Sodium Chloride Flush 3 ML SYRINGE IVFLUSH (07:48)
[2021-11-01] MEDS: Insulin Lispro 100 UNIT/ML 3 ML VIAL SUBCUT ×4 (07:57→21:30)
--- NOTE | 2021-11-01 08:36 | HO.PM.IMPN ---
Subjective Subjective Date of Service: 11/06/21 Review of Systems Follow up pancreatitis Still with significant pain, requesting to have pain medications frequency increased No nausea or vomiting Physical Exam Vital Signs: Vital Signs: Last Vital Signs Temp 96.9 F 11/01/21 07:14 Pulse 73 11/01/21 07:14 Resp 18 11/01/21 07:14 BP 147/66 H 11/01/21 07:14 Pulse Ox 95 11/01/21 07:14 BMI result Body Mass Index 38.9 Appearing in no acute distress lung sounds are clear to auscultation heart regular rate rhythm, clear S1, S2 positive bowel sounds, abdomen is soft, nontender neuro patient is alert x3, no focal deficits Objective Data Active Medications Acetaminophen (Acetaminophen 325 Mg Tablet) 650 mg PO Q6H PRN PRN Reason: Pain, Mild (Pain Scale 1-3) Albuterol Sulfate (Albuterol Sulfate 90 Mcg 8 Gm Inhaler) 1 - 2 puff INHALE Q4H PRN PRN Reason: Shortness Of Breath/Wheezing Amlodipine Besylate (Amlodipine Besylate 10 Mg Tablet) 10 mg PO DAILY [facility]; Protocol Last Admin: 11/01/21 07:47 Dose: 10 mg Documented by: GUEVARA Atorvastatin Calcium (Atorvastatin Calcium 40 Mg Tablet) 40 mg PO DAILY [facility] Last Admin: 11/01/21 07:46 Dose: 40 mg Documented by: GUEVARA Dextrose (Dextrose 50 % 25 Gm/50 Ml Syringe) 25 gm IVPUSH Q15M PRN; Protocol PRN Reason: per Hypoglycemia Standing Ord. Famotidine (Famotidine/Pf 20 Mg/2 Ml Vial) 20 mg IVPUSH BID [facility] Last Admin: 11/01/21 07:46 Dose: 20 mg Documented by: GUEVARA Fenofibrate (Fenofibrate 160 Mg Tablet) 160 mg PO DAILY [facility] Last Admin: 11/01/21 07:47 Dose: 160 mg Documented by: GUEVARA Glucose (Glucose Gel 15 Gm Gel..Gram.) 15 gm PO Q15M PRN; Protocol PRN Reason: per Hypoglycemia Standing Ord. Heparin Sodium (Porcine) (Heparin Sodium,Porcine 5,000 Unit/Ml Vial) 5,000 unit SUBCUT Q8H [facility] Last Admin: 11/01/21 05:40 Dose: 5,000 unit Documented by: BART Hydralazine HCl (Hydralazine Hcl 50 Mg Tablet) 50 mg PO BID [facility]; Protocol Last Admin: 11/01/21 07:48 Dose: 50 mg Documented by: GUEVARA Hydromorphone HCl (Hydromorphone Hcl 1 Mg/Ml Syringe) 1 mg IVPUSH Q3H PRN; Protocol PRN Reason: Pain, Severe (Pain Scale 7-10) Insulin Glargine (Insulin Glargine,Hum.Rec.Anlog 100 Unit/Ml 10 Ml Vial) 30 unit SUBCUT DAILY [facility] Last Admin: 10/31/21 08:27 Dose: Not Given Documented by: GUEVARA Non-Admin Reason: No Insulin Coverage Insulin Human Lispro (Insulin Lispro 100 Unit/Ml 3 Ml Vial) 0 unit SUBCUT QIDACHS [facility]; Protocol Last Admin: 11/01/21 07:57 Dose: 2 unit Documented by: GUEVARA Lisinopril (Lisinopril 10 Mg Tablet) 10 mg PO DAILY [facility]; Protocol Last Admin: 11/01/21 07:47 Dose: 10 mg Documented by: GUEVARA Loperamide HCl (Loperamide Hcl 2 Mg Capsule) 2 mg PO Q4H PRN PRN Reason: Diarrhea Last Admin: 10/30/21 22:53 Dose: 2 mg Documented by: CHAPINCITO Melatonin (Melatonin 3 Mg Tablet) 6 mg PO BEDTIME PRN PRN Reason: Insomnia Last Admin: 10/31/21 22:07 Dose: 6 mg Documented by: JAMES Metoprolol Tartrate (Metoprolol Tartrate 100 Mg Tablet) 100 mg PO BID [facility]; Protocol Last Admin: 11/01/21 07:47 Dose: 100 mg Documented by: GUEVARA Ondansetron HCl (Ondansetron Hcl 4 Mg/2 Ml Vial) 4 mg IVPUSH Q8H PRN PRN Reason: Nausea and Vomiting Last Admin: 10/30/21 19:26 Dose: 4 mg Documented by: CHAPINCITO Senna (Sennosides 8.6 Mg Tablet) 17.2 mg PO BEDTIME PRN PRN Reason: Constipation Sodium Chloride (0.9 % Sodium Chloride Flush 3 Ml Syringe) [facility] Last Admin: 11/01/21 07:48 Dose: 3 ml Documented by: GUEVARA Labs CBC & Chem 7: 10/29/21 05:47 11/01/21 07:57 Labs: Laboratory Results - last 24 hr 10/30/21 10/31/21 10/31/21 19:09 08:31 10:44 Anion Gap 14 Estim Creat Clear Calc 84.2 Estimated GFR > 60 POC Glucose 128 H 117 H Random Glucose 115 Calcium 8.6 Lipase 136 H 10/31/21 10/31/21 11/01/21 15:51 19:54 07:13 Anion Gap Estim Creat Clear Calc Estimated GFR POC Glucose 143 H 189 H 191 H Random Glucose Calcium Lipase Assessment and Plan (1) Acute pancreatitis: Status: Resolved (2) Pancreatic divisum: (3) HTN (hypertension): (4) HLD (hyperlipidemia): (5) T2DM (type 2 diabetes mellitus): Plan 66-year-old female with a past medical history of hypertension, hyperlipidemia, diabetes, CAD, history of recurrent pancreatitis secondary to hypertriglyceridemia/pancreatic divisum, even requiring ICU admissions status post surgical spinning durotomy and sphincteroplasty in [place]; history of cholecystectomy, vitamin-D deficiency, history of cervical cancer presented to the hospital with a chief complaint of epigastric pain. Noted to have epigastric tenderness, lipase elevated on the labs; admitted for acute pancreatitis. Acute pancreatitis, recurrent d/t pancreatic divisum, TG not not high as cause. Clinically resolving, Lipase has dropped to 136 from 1336 Pain control, hydration, recheck lipase, advance diet CHARLES. Resolved pre renal azotemia HTN uncontrolled. pain likely contributing continue metoprolol 100 b.i.d., Norvasc 10 mg daily, hydralazine 50 mg b.i.d. lisinopril 10 mg daily added 10/30 Diabetes continue Lantus 30, sliding scale insulin DVT prophylaxis: Subcu heparin Code status: Full code Attending Dr. Forman Quality Stroke Does the patient have a stroke diagnosis?: No VTE Prior VTE?: No VTE Risk Level:: Medical - moderate - high VTE Device Contraindication: Treatment Not Indicated VTE Drug Contraindication: N/A - Med Ordered
[2021-11-01 08:40] LABS: Anion Gap 16 (12-20); Blood Urea Nitrogen 15 mg/dL (9-16); Calcium 9.2 mg/dL (8.4-10.2); Carbon Dioxide 20 mmol/L (22-29); Chloride 108 mmol/L (96-108); Creatinine Clr Calc Pharmacy 75.7; Estimated Glomerular Filt Rate > 60; Glucose Random 212 mg/dL (60-115); Lipase 86 U/L (8-78); Potassium 3.9 mmol/L (3.3-5.1); Sodium 140 mmol/L (135-145)
[2021-11-01] MEDS: Insulin Glargine,Hum.rec.anlog 100 UNIT/ML 10 ML VIAL 30 UNIT SUBCUT (09:15)
[2021-11-01 11:27] VITALS: BP 147/67; PULSE 76; RESP 18; TEMP 36.6; O2SAT 99
[2021-11-01 11:32] LABS: Glucose, Whole Blood 246 mg/dL (60-115)
[2021-11-01 15:24] VITALS: BP 186/75; PULSE 73; RESP 18; TEMP 36.8; O2SAT 98
[2021-11-01] MEDS: HYDROmorphone HCl 1 MG/ML SYRINGE IM ×2 (15:39→21:29)
[2021-11-01 15:45] LABS: Glucose, Whole Blood 272 mg/dL (60-115)
--- NOTE | 2021-11-01 16:34 | MHC.CM.PN ---
EMR REVIEWED, LIPASE TRENDING DOWN HOWEVER REMAINS ELEVATED, PT'S BP REMAINS ELEVATED AND PT CONT'S TO RECEIVE IV PAIN MEDS, ANTIC D/C IN 1-2 DAYS HOME NO SERVICES W/ FOR TRANSPORT.
[2021-11-01 19:57] VITALS: BP 177/77; PULSE 78; RESP 18; TEMP 36.9; O2SAT 99
[2021-11-01 20:14] LABS: Glucose, Whole Blood 209 mg/dL (60-115)
[2021-11-02] VITALS: BP 158/65; PULSE 67; RESP 17; TEMP 36.7; O2SAT 98
[2021-11-02] MEDS: HYDROmorphone HCl 1 MG/ML SYRINGE IM ×2 (03:35→09:34)
[2021-11-02 04:00] VITALS: BP 165/62; PULSE 68; RESP 16; TEMP 36.6; O2SAT 100
[2021-11-02] MEDS: Heparin Sodium,Porcine 5,000 UNIT/ML VIAL 5000 UNIT SUBCUT ×3 (06:47→21:50)
[2021-11-02 07:38] VITALS: BP 181/67; PULSE 84; RESP 18; TEMP 37.1; O2SAT 99
--- NOTE | 2021-11-02 08:01 | PC.NURSE ---
Skin assessment completed. Patient has redness to right lower leg from cellulitis. No open areas. Bruising to abdomen and arms. Lotion applied to bilateral lower legs to keep moist.
[2021-11-02 08:16] LABS: Glucose, Whole Blood 219 mg/dL (60-115)
[2021-11-02] MEDS: Fenofibrate 160 MG TABLET PO (09:31)
[2021-11-02] MEDS: amLODIPine Besylate 10 MG TABLET PO (09:32)
[2021-11-02] MEDS: hydrALAZINE HCl 50 MG TABLET PO (09:32)
[2021-11-02] MEDS: Atorvastatin Calcium 40 MG TABLET PO (09:32)
[2021-11-02] MEDS: lisinopriL 10 MG TABLET PO (09:32)
[2021-11-02] MEDS: Insulin Glargine,Hum.rec.anlog 100 UNIT/ML 10 ML VIAL 30 UNIT SUBCUT (09:32)
[2021-11-02] MEDS: Metoprolol Tartrate 100 MG TABLET PO ×2 (09:32→19:45)
[2021-11-02] MEDS: Insulin Lispro 100 UNIT/ML 3 ML VIAL SUBCUT ×3 (09:32→19:57)
[2021-11-02] MEDS: Famotidine/PF 20 MG/2 ML VIAL IVPUSH ×2 (10:51→19:47)
[2021-11-02 11:28] VITALS: BP 173/70; PULSE 70; RESP 18; TEMP 37.1; O2SAT 96
[2021-11-02 11:44] LABS: Glucose, Whole Blood 235 mg/dL (60-115)
[2021-11-02] MEDS: Lactated Ringers 1,000 ML 100 ML IVCONT (12:09)
--- NOTE | 2021-11-02 12:58 | P.PNIM_ITS ---
Subjective Subjective Date of Service: 11/02/21 <RODNEY Hernandez - Last Filed: 11/02/21 13:12> 11/03/21 <Denise Denise MD - Last Filed: 11/03/21 15:59> Interval History: seen and examined this morning reporting increasing abdominal pain and nausea no vomiting no fever or chills <RODNEY Hernandez - Last Filed: 11/02/21 13:12> Review of Systems Review of Systems: Yes all other systems are reviewed and are negative <RODNEY Hernandez - Last Filed: 11/02/21 13:12> Constitutional Constitutional: Denies chills and Denies fever(s) <RODNEY Hernandez - Last Filed: 11/02/21 13:12> Cardiovascular Cardiovascular: Denies chest pain and Denies dyspnea <RODNEY Hernandez - Last Filed: 11/02/21 13:12> Respiratory Respiratory: Denies dyspnea <RODNEY Hernandez - Last Filed: 11/02/21 13:12> Gastrointestinal Gastrointestinal: Reports abdominal pain, Reports diarrhea, Reports nausea and Denies vomiting <RODNEY Hernandez - Last Filed: 11/02/21 13:12> Physical Exam Vital Signs: Vital Signs: Last Vital Signs Temp 98.7 F 11/02/21 11:28 Pulse 70 11/02/21 11:28 Resp 18 11/02/21 11:28 BP 173/70 H 11/02/21 11:28 Pulse Ox 96 11/02/21 11:28 BMI result Body Mass Index 38.9 <RODNEY Hernandez - Last Filed: 11/02/21 13:12> Const: General: cooperative, comfortable, alert and awake <RODNEY Hernandez - Last Filed: 11/02/21 13:12> Nutritional Appearance: obese <RODNEY Hernandez - Last Filed: 11/02/21 13:12> Orientation/consciousness: patient oriented x3 <RODNEY Hernandez - Last Filed: 11/02/21 13:12> Eyes: Pupils: Equal, round and reactive pupils present <RODNEY Hernandez - Last Filed: 11/02/21 13:12> Resp: Effort & Inspection: normal respiratory effort and able to speak in complete sentences <RODNEY Hernandez - Last Filed: 11/02/21 13:12> Cardio: Heart sounds: S1 normal heart sound present and S2 normal heart sound present <RODNEY Hernandez - Last Filed: 11/02/21 13:12> GI: Inspection: No distended <RODNEY Hernandez - Last Filed: 11/02/21 13:12> Palpation (GI): Soft to palpation and Tenderness to palpation present (GI) (primarily epigastric area) <RODNEY Hernandez - Last Filed: 11/02/21 13:12> Neuro: General: patient oriented x3 <RODNEY Hernandez - Last Filed: 11/02/21 13:12> Cranial nerves: Yes Equal, round and reactive pupils present <RODNEY Hernandez Last Filed: 11/02/21 13:12> Extrem: Other: moving all 4 extremities spontaneously <RODNEY Hernandez - Last Filed: 11/02/21 13:12> Objective Data Active Medications Acetaminophen (Acetaminophen 325 Mg Tablet) 650 mg PO Q6H PRN PRN Reason: Pain, Mild (Pain Scale 1-3) Albuterol Sulfate (Albuterol Sulfate 90 Mcg 8 Gm Inhaler) 1 - 2 puff INHALE Q4H PRN PRN Reason: Shortness Of Breath/Wheezing Amlodipine Besylate (Amlodipine Besylate 10 Mg Tablet) 10 mg PO DAILY [facility]; Protocol Last Admin: 11/02/21 09:32 Dose: 10 mg Documented by: ASHLIE Atorvastatin Calcium (Atorvastatin Calcium 40 Mg Tablet) 40 mg PO DAILY [facility] Last Admin: 11/02/21 09:32 Dose: 40 mg Documented by: ASHLIE Dextrose (Dextrose 50 % 25 Gm/50 Ml Syringe) 25 gm IVPUSH Q15M PRN; Protocol PRN Reason: per Hypoglycemia Standing Ord. Famotidine (Famotidine/Pf 20 Mg/2 Ml Vial) 20 mg IVPUSH BID [facility] Last Admin: 11/02/21 10:51 Dose: 20 mg Documented by: ASHLIE Fenofibrate (Fenofibrate 160 Mg Tablet) 160 mg PO DAILY [facility] Last Admin: 11/02/21 09:31 Dose: 160 mg Documented by: ASHLIE Glucose (Glucose Gel 15 Gm Gel..Gram.) 15 gm PO Q15M PRN; Protocol PRN Reason: per Hypoglycemia Standing Ord. Heparin Sodium (Porcine) (Heparin Sodium,Porcine 5,000 Unit/Ml Vial) 5,000 unit SUBCUT Q8H [facility] Last Admin: 11/02/21 06:47 Dose: 5,000 unit Documented by: DIAN Hydralazine HCl (Hydralazine Hcl 25 Mg Tablet) 75 mg PO BID [facility]; Protocol Hydromorphone HCl (Hydromorphone Hcl 0.5 Mg/0.5 Ml Syringe) 0.5 mg IVPUSH Q4H PRN; Protocol PRN Reason: Pain, Severe (Pain Scale 7-10) Lactated Ringer's (Lr) 1,000 mls @ 100 mls/hr IVCONT .Q10H [facility] Last Admin: 11/02/21 12:09 Dose: 100 mls/hr Documented by: ASHLIE Insulin Glargine (Insulin Glargine,Hum.Rec.Anlog 100 Unit/Ml 10 Ml Vial) 30 unit SUBCUT DAILY [facility] Last Admin: 11/02/21 09:32 Dose: 30 unit Documented by: ASHLIE Insulin Human Lispro (Insulin Lispro 100 Unit/Ml 3 Ml Vial) 0 unit SUBCUT QIDACHS [facility]; Protocol Last Admin: 11/02/21 12:09 Dose: 4 unit Documented by: ASHLIE Lisinopril (Lisinopril 10 Mg Tablet) 10 mg PO DAILY [facility]; Protocol Last Admin: 11/02/21 09:32 Dose: 10 mg Documented by: ASHLIE Loperamide HCl (Loperamide Hcl 2 Mg Capsule) 2 mg PO Q4H PRN PRN Reason: Diarrhea Last Admin: 10/30/21 22:53 Dose: 2 mg Documented by: CHAPINCITO Melatonin (Melatonin 3 Mg Tablet) 6 mg PO BEDTIME PRN PRN Reason: Insomnia Last Admin: 10/31/21 22:07 Dose: 6 mg Documented by: JAMES Metoprolol Tartrate (Metoprolol Tartrate 100 Mg Tablet) 100 mg PO BID [facility]; Protocol Last Admin: 02/24/22 09:32 Dose: 100 mg Documented by: ASHLIE Ondansetron HCl (Ondansetron Hcl 4 Mg/2 Ml Vial) 4 mg IVPUSH Q8H PRN PRN Reason: Nausea and Vomiting Last Admin: 10/30/21 19:26 Dose: 4 mg Documented by: CHAPINCITO Oxycodone HCl (Oxycodone Hcl Immed Release 5 Mg Tablet) 5 mg PO Q4H PRN PRN Reason: Pain, Mild (Pain Scale 1-3) Senna (Sennosides 8.6 Mg Tablet) 17.2 mg PO BEDTIME PRN PRN Reason: Constipation Sodium Chloride (0.9 % Sodium Chloride Flush 3 Ml Syringe) 3 ml IVFLUSH QSHIFT [facility] Last Admin: 11/02/21 09:33 Dose: Not Given Documented by: ASHLIE Non-Admin Reason: No Access <RODNEY Hernandez - Last Filed: 11/02/21 13:12> Labs CBC & Chem 7: : 10/29/21 05:47 11/01/21 07:57 <RODNEY Hernandez - Last Filed: 11/02/21 13:12> Labs: Laboratory Results - last 24 hr 11/01/21 11/01/21 11/02/21 15:27 20:10 08:12 POC Glucose 272 H 209 H 219 H 11/02/21 11:27 POC Glucose 235 H <RODNEY Hernandez - Last Filed: 11/02/21 13:12> Assessment and Plan (1) Acute pancreatitis: Status: Acute <RODNEY Hernandez - Last Filed: 11/02/21 13:12> Plan 66-year-old female with a past medical history of hypertension, hyperlipidemia, diabetes, CAD, history of recurrent pancreatitis secondary to hypertriglyceridemia/pancreatic divisum, even requiring ICU admissions status post surgical spinning durotomy and sphincteroplasty in [place]; history of cholecystectomy, vitamin-D deficiency, history of cervical cancer presented to the hospital with a chief complaint of epigastric pain. Noted to have epigastric tenderness, lipase elevated on the labs; admitted for acute pancreatitis. Acute pancreatitis, recurrent d/t pancreatic divisum TG 318, not likely cause Lipase trending down from 1336 to 86 but with persistent abdominal pain seen by GI on admission will downgrade diet to clears and resume IVF repeat CT scan pending CHARLES. Resolved pre renal azotemia creatinine down to .80 from 2.12 on admission HTN uncontrolled. pain likely contributing continue metoprolol 100 b.i.d., Norvasc 10 mg daily, lisinopril 10 mg daily added 10/30 will increase dose of hydralazine friom 50 mg bid to 75 mg bid lasix 40 mg on hold since admission due to CHARLES Diabetes continue Lantus 30U (on 60U at baseline) sliding scale insulin HLD continue lipitor, lofibra DVT prophylaxis: Subcu heparin Code status: Full code Attending Dr. Denise <RODNEY Hernandez - Last Filed: 11/02/21 13:12> Quality Stroke Does the patient have a stroke diagnosis?: No <RODNEY Hernadnez - Last Filed: 11/02/21 13:12> VTE Prior VTE?: No <RODNEY Hernandez - Last Filed: 11/02/21 13:12> VTE Risk Level:: Medical - moderate - high <RODNEY Hernandez - Last Filed: 11/02/21 13:12> VTE Device Contraindication: Treatment Not Indicated <RODNEY Hernandez - Last Filed: 11/02/21 13:12> VTE Drug Contraindication: N/A - Med Ordered <RODNEY Hernandez - Last Filed: 11/02/21 13:12>
[2021-11-02] MEDS: oxyCODONE HCl Immed Release 5 MG TABLET PO (13:07)
[2021-11-02] MEDS: Loperamide HCl 2 MG CAPSULE PO (13:08)
[2021-11-02] MEDS: 0.9 % Sodium Chloride Flush 3 ML SYRINGE IVFLUSH (15:17)
[2021-11-02] MEDS: HYDROmorphone HCl 0.5 MG/0.5 ML SYRINGE IVPUSH ×2 (15:35→19:47)
[2021-11-02 15:40] VITALS: BP 168/70; PULSE 67; RESP 16; TEMP 36.5; O2SAT 99
[2021-11-02 16:01] LABS: Glucose, Whole Blood 92 mg/dL (60-115)
[2021-11-02 19:12] VITALS: BP 133/54; PULSE 70; RESP 14; TEMP 36.8; O2SAT 98
[2021-11-02] MEDS: hydrALAZINE HCl 25 MG TABLET 75 MG PO (19:46)
[2021-11-02 19:58] LABS: Glucose, Whole Blood 165 mg/dL (60-115)
[2021-11-03] VITALS: BP 144/79; PULSE 71; RESP 18; TEMP 36.7; O2SAT 100
[2021-11-03] MEDS: Lactated Ringers 1,000 ML 100 ML IVCONT (00:23)
[2021-11-03] MEDS: HYDROmorphone HCl 0.5 MG/0.5 ML SYRINGE IVPUSH ×3 (00:24→09:57)
[2021-11-03 04:00] VITALS: BP 143/71; PULSE 70; RESP 18; TEMP 36.7; O2SAT 97
[2021-11-03] MEDS: Heparin Sodium,Porcine 5,000 UNIT/ML VIAL 5000 UNIT SUBCUT ×2 (05:20→12:21)
[2021-11-03 07:14] VITALS: BP 193/86; PULSE 78; RESP 18; TEMP 36.1; O2SAT 99
[2021-11-03 07:36] LABS: Glucose, Whole Blood 182 mg/dL (60-115)
[2021-11-03] MEDS: hydrALAZINE HCl 25 MG TABLET 75 MG PO (07:48)
[2021-11-03] MEDS: Fenofibrate 160 MG TABLET PO (07:48)
[2021-11-03] MEDS: lisinopriL 10 MG TABLET PO (07:48)
[2021-11-03] MEDS: Metoprolol Tartrate 100 MG TABLET PO (07:48)
[2021-11-03] MEDS: amLODIPine Besylate 10 MG TABLET PO (07:48)
[2021-11-03] MEDS: Atorvastatin Calcium 40 MG TABLET PO (07:48)
[2021-11-03] MEDS: Insulin Lispro 100 UNIT/ML 3 ML VIAL SUBCUT ×2 (07:49→12:21)
[2021-11-03] MEDS: 0.9 % Sodium Chloride Flush 3 ML SYRINGE IVFLUSH (07:50)
[2021-11-03] MEDS: Famotidine/PF 20 MG/2 ML VIAL IVPUSH (07:51)
[2021-11-03] MEDS: Insulin Glargine,Hum.rec.anlog 100 UNIT/ML 10 ML VIAL 30 UNIT SUBCUT (07:52)
--- NOTE | 2021-11-03 10:12 | PM.DS ---
DS: Providers Provider Date of Service: 11/03/21 Date of admission: 10/28/21 05:11 Date of discharge: 11/03/21 Primary care physician: Armando Holloway MD Consults: 10/28/21 05:08 Consult to Gastroenterology Routine Consulting Provider: Valeriano Corona Reason for consultation: pancreatitis Attending physician on discharge: Edgardo [facility] Discharging clinician: Christine Christiansen DS: Diagnosis Discharge Diagnosis (1) Acute pancreatitis: Status: Resolved DS: Summary Hospital Course Hospital Course: From H&P on day of admission 66-year-old female with a past medical history of hypertension, hyperlipidemia, diabetes, CAD, history of recurrent pancreatitis secondary to hypertriglyceridemia/pancreatic divisum, even requiring ICU admissions status post surgical spinning durotomy and sphincteroplasty in [place]; history of cholecystectomy, vitamin-D deficiency, history of cervical cancer presented to the hospital with a chief complaint of epigastric pain.?Patient reports that for the past 4 days she has been having epigastric pain similar to the prior episodes; unable to tolerate p.o.; associated nausea; denies any vomiting or diarrhea.? Denies any chest pain or palpitations.? Denies any cough fever shortness of breath.?Denies any chest pain palpitations lightheadedness or dizziness.Review of all other systems is negative except mentioned above ER course: Per ER team patient noted a abdominal discomfort in the epigastrium-tender; noted to have a lipase elevated to 1600; concern for recurrent pancreatitis.? Admitted to the hospital for further management.? Patient had CT abdomen done-pending result patient was made NPO, treated with IV antiemetics, and pain medication. She was seen in consultation by GI who agreed management. No necrotic collection or peripancreatic collection was seen on initial CT scan. Patient's diet was gradually increased. She had persistent abdominal pain despite lipase trending down. Repeat scan of the abdomen was completed and showed improvement of pancreatitis. Her abdominal pain has not completely resolved but has improved and she is able to tolerate a bland diet. She will be discharged home to resume her home dose of oral oxycodone as needed for severe pain and zofran for nausea. She is encouraged to continue to slowly advance her diet at home as tolerated and follow-up with her PCP as needed. CHARLES. Renal function improved from creatinine of 2.12 on day of admission to 0.80 with IV fluid. Hypertension. Patient's blood pressure was noted to be elevated her hydralazine dose was was increased from 50 mg b.i.d. to 75 mg b.i.d. She should follow up with PCP for close blood pressure monitoring. Time Spent with Patient Time attestation: Total time spent providing and/or coordinating discharge services: Discharge coordination time: Greater than 30 minutes Quality: Stroke Does the patient have a stroke diagnosis?: No Physical Exam Vital Signs: Vital Signs: Last Vital Signs Temp 97.0 F 11/03/21 07:14 Pulse 78 11/03/21 07:14 Resp 18 11/03/21 07:14 BP 193/86 H 11/03/21 07:14 Pulse Ox 99 11/03/21 07:14 BMI result Body Mass Index 38.9 Const: General: cooperative, comfortable, no acute distress, alert, awake and Physically active Nutritional Appearance: overweight Eyes: Pupils: Equal, round and reactive pupils present Resp: Effort & Inspection: normal respiratory effort and able to speak in complete sentences Cardio: Rate: regular rate Heart sounds: S1 normal heart sound present and S2 normal heart sound present GI: Palpation (GI): Soft to palpation and nontender Neuro: Cranial nerves: Yes Equal, round and reactive pupils present Gait exam (Neuro): Normal gait present Extrem: Other: no leg edema. DS: Data Data Completed and Pending Labs on day of discharge: Laboratory Results - last 24 hr 11/02/21 11/02/21 11/02/21 11:27 15:56 19:53 POC Glucose 235 H 92 165 H 11/03/21 07:11 POC Glucose 182 H Discharge Plan Discharge Patient Disposition: Home, Self-Care Discharge Diagnosis: Pancreatitis Referrals: Armando Holloway MD [Primary Care Provider] - 1 Week Discharge Medications: New hydralazine 25 mg Tablet 75 mg PO BID 30 Days Qty: 180 0RF Protocol: Hold for SBP< HOLD for SBP < : 90 ondansetron 4 mg tablet,disintegrating 4 mg PO Q8H PRN (Reason: nausea and vomiting) Qty: 10 0RF Continued Lantus Solostar U-100 Insulin 100 unit/mL (3 mL) insulin pen 60 unit subcut DAILY 0RF amlodipine 10 mg tablet 10 mg PO DAILY 0RF furosemide 40 mg tablet 40 mg PO DAILY 0RF fenofibrate nanocrystallized 145 mg tablet 145 mg PO DAILY 0RF lansoprazole 30 mg capsule,delayed release(DR/EC) 30 mg PO DAILY 0RF enalapril maleate 20 mg tablet 20 mg PO BID 0RF metoprolol tartrate 100 mg tablet 100 mg PO BID 0RF atorvastatin 40 mg tablet 40 mg PO DAILY 0RF oxycodone 10 mg tablet 10 mg PO QID PRN (Reason: Pain) 0RF gabapentin 300 mg capsule 300 mg PO BID PRN (Reason: pain) 0RF albuterol sulfate 90 mcg/actuation HFA aerosol inhaler 1 - 2 puff inhalation Q4H PRN (Reason: Shortness Of Breath Or Wheezing) 0RF (DME) pen needle, diabetic 31 gauge x 5/16 needle See Rx Instructions ea subcut QID Qty: 100 6RF Rx Instructions: Twice a day Humulin R U-500 (Conc) Kwikpen 500 unit/mL (3 mL) insulin pen See Protocol unit subcut BID 0RF Protocol: Insulin Correction Scale Less than or equal to 110 ---- Give (units): 0 111 to 150 Give (units): 0 151 to 200 Give (units): 2 201 to 250 Give (units): 4 251 to 300 Give (units): 6 301 to 350 Give (units): 8 Greater than 350 Give (units): 10 Call MD if Blood Glucose > : 350 Rx Instructions: sliding scale Discontinued hydralazine 50 mg tablet 50 mg PO BID 0RF Discharge Orders: Discharge Order (Routine); Ordered 11/03/21 Ordered By: Christine Christiansen Diet: advance to usual diet Activity on Discharge: As tolerated Stand Alone Forms: Patient Portal Discharge page Care Plan Goals: resolution of symptoms Health Concerns: Acute pancreatitis Uncontrolle blood pressure Plan of Treatment: Gradually advance diet as tolerated. Your dose of hydralazine has been increased from 50mg to 75mg bid. Follow up with your primary care provider for close blood pressure monitoring Assessment: See discharge summary Discharge Date/Time: 11/03/21 15:42
[2021-11-03 11:35] VITALS: BP 162/70; PULSE 59; RESP 18; TEMP 36.4; O2SAT 99
--- NOTE | 2021-11-03 11:39 | MHC.CM.PN ---
PT MEDICALLY CLEARED FOR D/C HOME NO SERVICESW/ FOR TRANSPORT
[2021-11-03 11:58] LABS: Glucose, Whole Blood 157 mg/dL (60-115)
[2021-11-03] MEDS: oxyCODONE HCl Immed Release 5 MG TABLET PO (13:40)
== END 2021-11-03 15:42 | disposition home or self-care (01) | DRG 439 ==
LOC: HO.ED 04:27 → HO.EDOVER 05:15 → HO.S3 14:08
PROVIDERS: Internal Medicine; Nurse Practitioner Acute Care; Admitting Provider Hospitalist; Emergency Provider Student in an Organized Health Care Education/Training Program; PCP Internal Medicine; Visit Provider Physician Assistant Medical
DX: K85.80 Other acute pancreatitis without necrosis or infection (principal); N17.9 Acute kidney failure, unspecified; Q45.3 Other congenital malformations of pancreas and pancreatic duct; I10 Essential (primary) hypertension; E11.9 Type 2 diabetes mellitus without complications; I25.10 Atherosclerotic heart disease of native coronary artery without angina pectoris; E78.1 Pure hyperglyceridemia; I16.0 Hypertensive urgency; Z20.822 Contact with and (suspected) exposure to COVID-19; Z88.0 Allergy status to penicillin; Z88.5 Allergy status to narcotic agent; Z91.040 Latex allergy status; Z79.4 Long term (current) use of insulin; Z79.891 Long term (current) use of opiate analgesic; Z79.899 Other long term (current) drug therapy
CPT/HCPCS: 36415; 74150; 74176; 80048; 80053; 80061; 81001; 82043; 82150; 82248; 82947; 83036; 83690; 84443; 85025; 87635; 93005; 96361; 96374; 96375; 96376; 99285; J1170; J1200; J2405; J2765

== ENCOUNTER 2021-11-14 15:16 | Outpatient (REF) | payer MEDICARE, OTHER, SELFPAY ==
[2021-11-14 15:34] LABS: MANUAL DIFF FLAG NO
[2021-11-14 15:53] LABS: Basophils Absolute Auto 0.1 X10*3/uL (0.0-0.2); Basophils Percent Auto 0.7 % (0-2); Eosinophils Absolute Auto 0.4 X10*3/uL (0.0-0.4); Hematocrit 36.3 % (37.0-47.0); Hemoglobin 11.2 g/dl (12.0-16.0); Imm Gran Abs Auto 0.03 X10*3/uL (0.00-0.03); Imm Gran Pct Auto 0.4 % (0.0-0.4); Lymphocytes Absolute Auto 1.4 X10*3/uL (1.2-4.9); Lymphocytes Percent Auto 19.3 % (20-40); Mean Corpuscular HGB Conc 30.9 g/dl (31.0-35.0); Mean Corpuscular Hemoglobin 28.9 pg (27.0-33.0); Mean Corpuscular Volume 93.8 fL (80.0-98.0); Monocytes Absolute Auto 0.5 X10*3/uL (0.1-1.2); Monocytes Percent Auto 7.1 % (2-11); Neutrophils Absolute Auto 4.8 x10*3/uL (2.0-8.3); Neutrophils Percent Auto 66.5 % (45-73); Platelet Count 318 X10*3/uL (160-400); Red Blood Count 3.87 X10*6/uL (4.20-5.50); Red Cell Distribution Width 13.5 % (11.0-16.0); White Blood Count 7.2 X10*3/uL (4.8-10.8)
[2021-11-14 16:03] LABS: Estimated Average Glucose 263 mg/dL; Hemoglobin A1c % 10.8 %
[2021-11-14 16:19] LABS: Appearance Urine HAZY; Color Urine YELLOW; Glucose Urine UA NEG (NEG); Leukocyte Esterase Urine 2+ (NEG); Nitrite Urine POS (NEG); PH 5.5 (5.0-8.0); Specific Gravity - Urine 1.025 (1.005-1.025); UACC Culture Trigger YES; Urine Blood NEG (NEG); Urine Ketones NEG (NEG); Urine Protein NEG (NEG-TRACE)
[2021-11-14 16:21] LABS: Alanine Aminotransferase 14 U/L (0-31); Alkaline Phosphatase 67 U/L (39-117); Anion Gap 13 (12-20); Aspartate Amino Transferase 17 U/L (5-31); Bilirubin Total 0.4 mg/dL (0.0-1.0); Blood Urea Nitrogen 22 mg/dL (9-16); Carbon Dioxide 28 mmol/L (22-29); Chloride 103 mmol/L (96-108); Estimated Glomerular Filt Rate 52; Glucose Random 167 mg/dL (60-115); Potassium 4.9 mmol/L (3.3-5.1); Sodium 139 mmol/L (135-145); Total Protein 6.9 g/dL (6.5-8.0)
[2021-11-14 16:25] LABS: Bacteria Urine 3+ /LPF; RBC Urine 0 /HPF (0); Squamous Epithelial Cell Urine 2+ /LPF; WBC Urine 50-75 /HPF (0-4)
== END 2021-11-14 15:17 | disposition home or self-care (01) ==
LOC: HO.LAB 15:16
PROVIDERS: PCP Internal Medicine; Visit Provider Internal Medicine
DX: R30.0 Dysuria (principal); I12.9 Hypertensive chronic kidney disease with stage 1 through stage 4 chronic kidney disease, or unspecified chronic kidney disease; N18.9 Chronic kidney disease, unspecified; R73.03 Prediabetes
CPT/HCPCS: 36415; 80053; 81001; 83036; 85025; 87086; 87088; 87186

== ENCOUNTER 2022-04-10 17:07 | Outpatient (REF) | payer MEDICARE, OTHER, SELFPAY ==
[2022-04-10 18:16] LABS: Alanine Aminotransferase 16 U/L (0-31); Albumin Level 4.3 g/dL (3.5-5.0); Alkaline Phosphatase 76 U/L (39-117); Anion Gap 14 (12-20); Aspartate Amino Transferase 21 U/L (5-31); Bilirubin Total 0.6 mg/dL (0.0-1.0); Blood Urea Nitrogen 14 mg/dL (9-16); Calcium 10.1 mg/dL (8.4-10.2); Carbon Dioxide 27 mmol/L (22-29); Chloride 104 mmol/L (96-108); Estimated Glomerular Filt Rate 56; Glucose Random 220 mg/dL (60-115); Sodium 141 mmol/L (135-145); Total Protein 7.5 g/dL (6.5-8.0)
[2022-04-11 05:24] LABS: Estimated Average Glucose 289 mg/dL; Hemoglobin A1c % 11.7 %
== END 2022-04-10 17:08 | disposition home or self-care (01) ==
LOC: HO.LAB 17:07
PROVIDERS: PCP Internal Medicine; Visit Provider Internal Medicine
DX: R60.0 Localized edema (principal); E11.9 Type 2 diabetes mellitus without complications; I10 Essential (primary) hypertension; Z79.4 Long term (current) use of insulin
CPT/HCPCS: 36415; 80053; 83036

== ENCOUNTER 2022-05-23 22:41 | Inpatient (IN) | payer MEDICARE, OTHER, SELFPAY ==
--- NOTE | ~2022-05-23 | MR_ITS ---
EXAMINATION: MR ABDOMEN WITHOUT AND WITH CONTRAST CLINICAL INFORMATION: 67-year-old female with history of pancreatitis. Pancreatic divisum. Evaluate pancreatic duct stricture. COMPARISON: CT abdomen from 11/05/2020, 10/28/2021 and 11/02/2021. TECHNIQUE: MR imaging of the abdomen performed using standard sequences on a high-field magnet without and with intravenous administration of 10 mL Gadavist. FINDINGS: LUNG BASES: Normal. No pulmonary consolidation or pleural effusion at either lung base. LIVER: Liver has normal size and contour. Diffuse hepatic steatosis is noted on the opposed phase gradient echo imaging. No focal liver lesion. GALLBLADDER AND BILIARY TREE: Gallbladder is surgically absent and common bile duct chronically, mildly dilated. The common duct measures up to 0.8 - 0.9 cm maximum diameter. No evidence of common duct stricture or choledocholithiasis. PANCREAS: There is peripancreatic edema and peripancreatic fluid. Findings are consistent with recurrent, acute pancreatitis. No evidence of an organized, rim-enhancing fluid collection. No pancreatic mass or necrosis. The pancreatic duct is normal in caliber and no ductal strictures are seen. The main pancreatic duct drains to the minor papilla. SPLEEN: Normal. ADRENAL GLANDS: Normal. KIDNEYS: Kidneys are normal in size and enhance symmetrically. No renal mass, hydronephrosis or perinephric edema. BOWEL AND PERITONEUM: Stomach is unremarkable. No dilated loops of bowel. VASCULATURE: Atherosclerotic abdominal aorta is normal in caliber. The celiac trunk, SMA and renal arteries are widely patent. Inferior vena cava is normal. Splenic, portal and hepatic veins are normal. LYMPH NODES: No pathologic sized lymph nodes in the abdomen. SKELETAL: No suspicious bone lesions. Multilevel degenerative arthropathy of the visualized thoracolumbar spine. Chronic mild, grade 1 anterolisthesis at L4-L5. MR/MR abdomen wo/w con IMPRESSION: * Diffuse hepatic steatosis. * Cholecystectomy and chronic, mild dilatation of the common bile duct. No evidence of choledocholithiasis. * There is recurrent pancreatitis and findings of pancreatic divisum. Peripancreatic fluid and edema are present. No pancreatic mass or necrosis.
[2022-05-23 22:54] VITALS: BP 198/83; PULSE 87; RESP 21; TEMP 37.2; O2SAT 100; BMI 36.8
[2022-05-23] MEDS: Ondansetron ODT 4 MG TAB.RAPDIS TRANSLINGU (23:02)
[2022-05-23 23:07] LABS: Basophils Absolute Auto 0.1 X10*3/uL (0.0-0.2); Basophils Percent Auto 0.5 % (0-2); Eosinophils Percent Auto 0.2 % (0-4); Hematocrit 39.7 % (37.0-47.0); Hemoglobin 13.2 g/dl (12.0-16.0); Imm Gran Abs Auto 0.06 X10*3/uL (0.00-0.03); Imm Gran Pct Auto 0.5 % (0.0-0.4); Lymphocytes Absolute Auto 0.8 X10*3/uL (1.2-4.9); Lymphocytes Percent Auto 6.7 % (20-40); MANUAL DIFF FLAG NO; Mean Corpuscular HGB Conc 33.2 g/dl (31.0-35.0); Mean Corpuscular Hemoglobin 28.6 pg (27.0-33.0); Mean Corpuscular Volume 85.9 fL (80.0-98.0); Mean Platelet Volume 10.9 fL (9.4-12.3); Monocytes Absolute Auto 0.5 X10*3/uL (0.1-1.2); Monocytes Percent Auto 3.8 % (2-11); Neutrophils Absolute Auto 10.6 x10*3/uL (2.0-8.3); Neutrophils Percent Auto 88.3 % (45-73); Platelet Count 341 X10*3/uL (160-400); Red Blood Count 4.62 X10*6/uL (4.20-5.50); Red Cell Distribution Width 13.3 % (11.0-16.0)
[2022-05-23 23:24] LABS: Alanine Aminotransferase 14 U/L (0-31); Albumin Level 4.2 g/dL (3.5-5.0); Alkaline Phosphatase 63 U/L (39-117); Anion Gap 19 (12-20); Aspartate Amino Transferase 23 U/L (5-31); Bilirubin Direct 0.3 mg/dL (0.0-0.5); Bilirubin Total 0.6 mg/dL (0.0-1.0); Blood Urea Nitrogen 17 mg/dL (9-16); Calcium 10.2 mg/dL (8.4-10.2); Carbon Dioxide 21 mmol/L (22-29); Chloride 101 mmol/L (96-108); Creatinine Clr Calc Pharmacy 55.7; Estimated Glomerular Filt Rate 50; Glucose Random 248 mg/dL (60-115); Lipase 922 U/L (8-78); Potassium 4.4 mmol/L (3.3-5.1); Sodium 137 mmol/L (135-145); Total Protein 7.6 g/dL (6.5-8.0)
[2022-05-24] VITALS (11 sets, daily range): BP systolic 156–196; BP diastolic 63–75; PULSE 62–91; RESP 16–20; TEMP 36.3–36.9; O2SAT 94–100
--- NOTE | 2022-05-24 01:57 | ED_ITS ---
HPI - Abdominal Pain General Chief Complaint: Abdominal Pain Stated Complaint: pancreatitis Time Seen by Provider: 05/24/22 01:57 Source: patient Mode of arrival: ambulatory Limitations: no limitations History of Present Illness HPI narrative: Patient is 67 years old with history of hypertension, hyperlipidemia, diabetes, CAD, history of recurrent pancreatitis secondary to hypertriglyceridemia/pancreatic divisum comes here for pain in the mid abdomen for last 2 days similar to that in the past. Complaining of nausea and vomiting unable to eat anything for last 2 days no fever no chills no diarrhea Related Data Home Medications Medication Instructions Recorded Confirmed amlodipine 10 mg tablet 1 tab PO DAILY 05/24/22 05/24/22 atorvastatin 40 mg tablet 1 tab PO DAILY 05/24/22 05/24/22 enalapril maleate 20 mg tablet 1 tab PO BID 05/24/22 05/24/22 fenofibrate nanocrystallized 145 1 tab PO DAILY 05/24/22 05/24/22 mg tablet furosemide 40 mg tablet 1 tab PO DAILY 05/24/22 05/24/22 gabapentin 300 mg capsule 3 cap PO BEDTIME 05/24/22 05/24/22 insulin lispro 100 unit/mL subcut NEEDED 05/24/22 subcutaneous pen lansoprazole 30 mg capsule,delayed 1 cap PO DAILY 05/24/22 05/24/22 release metoprolol tartrate 100 mg tablet 1 tab PO BID 05/24/22 05/24/22 oxycodone 10 mg tablet 1 tab PO QID 05/24/22 05/24/22 Allergies Allergy/AdvReac Type Severity Reaction Status Date / Time gentamicin Allergy Severe DIFFICULTY Verified 05/23/22 22:56 BREATHING Iodinated Contrast Media Allergy Severe DIFFICULTY Verified 05/23/22 22:56 BREATHING, NAUSEA, VOMITING latex [LATEX] Allergy Severe ANAPHYLASIS Verified 05/23/22 22:56 morphine Allergy Severe ANAPHYLAXIS Verified 05/23/22 22:56 Penicillins Allergy Severe STOPPED Verified 05/23/22 22:56 BREATHING INFANT shellfish derived Allergy Severe DIFF Verified 05/23/22 22:56 [SHELLFISH DERIVED] BREATHING, SWELLING vancomycin Allergy Severe DIFFICULTY Verified 05/23/22 22:56 BREATHING azithromycin Allergy Unknown unk Verified 05/23/22 22:56 erythromycin base Allergy Unknown unk Verified 05/23/22 22:56 esomeprazole Allergy Unknown UNKNOWN Verified 05/23/22 22:56 pantoprazole AdvReac Mild NAUSEA & Verified 10/28/21 16:29 VOMITING Review of Systems Review of Systems Yes all other systems are reviewed and are negative [facility] Past Medical History Medical History (Updated 05/24/22 @ 05:54 by Dylan Mallory MD) Accelerated essential hypertension Asthma Barretts esophagus CAD (coronary artery disease) Cervical cancer Diabetes type 2, uncontrolled Embolism Endometrial cancer Essential hypertension GERD (gastroesophageal reflux disease) HLD (hyperlipidemia) HTN (hypertension) care home (current) use of insulin Other and unspecified hyperlipidemia Pancreatic divisum Pancreatitis T2DM (type 2 diabetes mellitus) Vitamin D deficiency Surgical History Hx of cholecystectomy Hx of colonoscopy Hx of endoscopy Hx of hernia repair Hx of hysterectomy Hx of removal of cyst Family History Family History Father Diabetes Mother Diabetes Social History Social History Household Members: Spouse Housing: House Do you presently have visiting nurse or other home services: No Alcohol intake: never Patient Tobacco Use Status: Never used Tobacco Advance Directives: No Advance Directives Information Provided: Yes service: No Current occupational status: employed Physical Exam ED Vital Signs: Vital Signs - 24 hr 05/23/22 22:54 05/24/22 02:20 Temperature 98.9 F Pulse Rate 87 Respiratory Rate 21 H 18 Blood Pressure 198/83 H Pulse Oximetry 100 Oxygen Delivery Method Room Air BMI result Body Mass Index 36.8 Appearance: Alert. Oriented X3. In moderate distress Eyes: PERRLA, No Nystagmus ENT: Pharynx normal. Oral Mucosa moist Neck: Normal inspection. Neck supple. CVS: Normal heart rate and rhythm. Pulses normal. Respiratory: No respiratory distress. Equal air entry bilateral, no wheezing/rales/rhonchi Abdomen: Soft comment tenderness mid abdomen with guarding no rebound tenderness Bowel sounds are present, no mass palpable, no CVA tenderness Skin: Skin warm and dry. Normal skin color. Normal skin turgor. Extremities: No lower extremity edema. No calf tenderness Neuro: Oriented X 3. No motor deficit. MDM - Abdominal Pain MDM Narrative Medical decision making narrative: Patient with recurrent pancreatitis secondary to pancreatic divisum will admit patient for supportive treatment. Differential Diagnosis Differential diagnosis: Likely abdominal pain Lab Data Result diagrams: 05/24/22 04:21 05/24/22 04:21 Labs: Lab Results 05/23/22 05/23/22 Range/Units 23:01 23:01 WBC 12.0 H (4.8-10.8) X10*3/uL RBC 4.62 (4.20-5.50) X10*6/uL Hgb 13.2 (12.0-16.0) g/dl Hct 39.7 (37.0-47.0) % MCV 85.9 (80.0-98.0) fL MCH 28.6 (27.0-33.0) pg MCHC 33.2 (31.0-35.0) g/dl RDW 13.3 (11.0-16.0) % Plt Count 341 (160-400) X10*3/uL MPV 10.9 (9.4-12.3) fL Immature Gran % (Auto) 0.5 H (0.0-0.4) % Neut % (Auto) 88.3 H (45-73) % Lymph % (Auto) 6.7 L (20-40) % Wallace % (Auto) 3.8 (2-11) % Eos % (Auto) 0.2 (0-4) % Baso % (Auto) 0.5 (0-2) % Lymph # (Auto) 0.8 L (1.2-4.9) X10*3/uL Wallace # (Auto) 0.5 (0.1-1.2) X10*3/uL Eos # (Auto) 0.0 (0.0-0.4) X10*3/uL Baso # (Auto) 0.1 (0.0-0.2) X10*3/uL Abs Immat Gran (auto) 0.06 H (0.00-0.03) X10*3/uL Absolute Neuts (auto) 10.6 H (2.0-8.3) x10*3/uL Absolute Nucleated RBC 0.000 (0.0-0.012) X10*3/uL Nucleated RBC % (auto) 0.0 (0.0-0.2) /100WBC Sodium 137 (135-145) mmol/L Potassium 4.4 (3.3-5.1) mmol/L Chloride 101 (96-108) mmol/L Carbon Dioxide 21 L (22-29) mmol/L Anion Gap 19 (12-20) BUN 17 H (9-16) mg/dL Creatinine 1.08 (0.5-1.4) mg/dL Estim Creat Clear Calc 55.7 Estimated GFR 50 Random Glucose 248 H (60-115) mg/dL Calcium 10.2 (8.4-10.2) mg/dL Total Bilirubin 0.6 (0.0-1.0) mg/dL Direct Bilirubin 0.3 (0.0-0.5) mg/dL AST 23 (5-31) U/L ALT 14 (0-31) U/L Alkaline Phosphatase 63 (39-117) U/L Total Protein 7.6 (6.5-8.0) g/dL Albumin 4.2 (3.5-5.0) g/dL Triglycerides 325 mg/dL Cholesterol 152 mg/dL LDL Cholesterol, Calc 59 mg/dl HDL Cholesterol 28 mg/dL Lipase 922 H (8-78) U/L Discharge Plan Discharge Clinical Impression: Pancreatitis Patient Disposition: Admitted As Inpatient
[2022-05-24] MEDS: ondansetron HCL 4 MG/2 ML VIAL IVPUSH ×2 (02:20→09:33)
[2022-05-24] MEDS: HYDROmorphone HCl 1 MG/ML SYRINGE IVPUSH (02:20)
[2022-05-24] MEDS: 0.9 % Sodium Chloride 1,000 ML 999 ML IV (02:21)
--- NOTE | 2022-05-24 02:40 | P.HPHOSP_ITS ---
History of Present Illness Date of Service: 05/24/22 Chief Complaint: Abdominal pain 67-year-old female with a past medical history of hypertension, hyperlipidemia, diabetes, CAD, history of pancreatic divisum, recurrent pancreatitis, asthma, vitamin-D deficiency; history of hypertriglyceridemia; presented to the hospital today with a chief complaint of abdominal pain. Patient reports that for the past 2 days she has been having abdominal pain, located in the epigastrium, 10/10 in intensity, associated nausea and vomiting; denies any blood in the vomitus. Denies any fever chills cough or sputum production. Patient mentioned that she had similar pain about a week ago-consistent with pancreatitis. State home and symptomatic we improved. But for the past 2 days she had pain similar to pancreatitis again. As she was not able to tolerate the pain today she came to the ER for further evaluation. Mentions that she intermittently gets pancreatitis and attributes to her prior history of pancreatic divisum. Mentions she even had 1 time pseudocyst. Also had prior history of tricuspid is and having lately controlled. Denies any urinary symptoms. Denies any chest pain palpitations lightheadedness or dizziness. Review of all other systems is negative except mentioned above ER course: Per ER team patient noted to have epigastric tenderness, no guarding no rigidity; noted to have elevated lipase 900; consistent with acute pancreatitis. Given pain medications and IV fluids. Admitted to the hospital for further management. [facility] Medical History (Updated 05/24/22 @ 02:40 by Alexei Delgado MD) Accelerated essential hypertension Asthma Barretts esophagus CAD (coronary artery disease) Cervical cancer Diabetes type 2, uncontrolled Embolism Endometrial cancer Essential hypertension GERD (gastroesophageal reflux disease) HLD (hyperlipidemia) HTN (hypertension) group home (current) use of insulin Other and unspecified hyperlipidemia Pancreatic divisum Pancreatitis T2DM (type 2 diabetes mellitus) Vitamin D deficiency Family History Father Diabetes Mother Diabetes Surgical History Hx of cholecystectomy Hx of colonoscopy Hx of endoscopy Hx of hernia repair Hx of hysterectomy Hx of removal of cyst Social History Household Members: Spouse Housing: House Do you presently have visiting nurse or other home services: No Alcohol intake: never Patient Tobacco Use Status: Never used Tobacco Advance Directives: No Advance Directives Information Provided: Yes service: No Current occupational status: employed Meds Allergies Allergy/AdvReac Type Severity Reaction Status Date / Time gentamicin Allergy Severe DIFFICULTY Verified 05/23/22 22:56 BREATHING Iodinated Contrast Media Allergy Severe DIFFICULTY Verified 05/23/22 22:56 BREATHING, NAUSEA, VOMITING latex [LATEX] Allergy Severe ANAPHYLASIS Verified 05/23/22 22:56 morphine Allergy Severe ANAPHYLAXIS Verified 05/23/22 22:56 Penicillins Allergy Severe STOPPED Verified 05/23/22 22:56 BREATHING INFANT shellfish derived Allergy Severe DIFF Verified 05/23/22 22:56 [SHELLFISH DERIVED] BREATHING, SWELLING vancomycin Allergy Severe DIFFICULTY Verified 05/23/22 22:56 BREATHING azithromycin Allergy Unknown unk Verified 05/23/22 22:56 erythromycin base Allergy Unknown unk Verified 05/23/22 22:56 esomeprazole Allergy Unknown UNKNOWN Verified 05/23/22 22:56 pantoprazole AdvReac Mild NAUSEA & Verified 10/28/21 16:29 VOMITING Active Medications: Current Medications Sodium Chloride (Ns) 1,000 mls @ 999 mls/hr IV .Q1H1M ONE Stop: 05/24/22 03:08 Last Admin: 05/24/22 02:21 Dose: 999 mls/hr Home Medications Medication Instructions Recorded Confirmed Last Taken Type amlodipine 10 mg tablet 1 tab PO DAILY 05/24/22 05/24/22 Unknown History atorvastatin 40 mg tablet 1 tab PO DAILY 05/24/22 05/24/22 Unknown History enalapril maleate 20 mg tablet 1 tab PO BID 05/24/22 05/24/22 Unknown History fenofibrate nanocrystallized 145 1 tab PO DAILY 05/24/22 05/24/22 Unknown History mg tablet furosemide 40 mg tablet 1 tab PO DAILY 05/24/22 05/24/22 Unknown History gabapentin 300 mg capsule 3 cap PO BEDTIME 05/24/22 05/24/22 Unknown History insulin lispro 100 unit/mL subcut NEEDED 05/24/22 Unknown History subcutaneous pen lansoprazole 30 mg capsule,delayed 1 cap PO DAILY 05/24/22 05/24/22 Unknown History release metoprolol tartrate 100 mg tablet 1 tab PO BID 05/24/22 05/24/22 Unknown History oxycodone 10 mg tablet 1 tab PO QID 05/24/22 05/24/22 Unknown History Physical Exam Vital Signs and Narrative: Vital Signs: Last Vital Signs Temp 98.9 F 05/23/22 22:54 Pulse 87 05/23/22 22:54 Resp 18 05/24/22 02:20 BP 198/83 H 05/23/22 22:54 Pulse Ox 100 05/23/22 22:54 O2 Del Method 05/23/22 22:54 BMI result Body Mass Index 36.8 Gen: Appears be in no acute distress HEENT: NCAT, Moist mucosa. Pulmonary: Vesicular breath sounds, fair air entry CVS: Normal S1-S2 Abdomen: BS+, Soft, tender in epigastrium, no guarding no rigidity Extremities: Warm well perfused Neuro: Alert and awake. Results Labs CBC and Chem 7: 05/23/22 23:01 05/23/22 23:01 Labs: Laboratory Results - last 24 hr 05/23/22 05/23/22 23:01 23:01 MCV 85.9 MCH 28.6 MCHC 33.2 RDW 13.3 Plt Count 341 MPV 10.9 Immature Gran % (Auto) 0.5 H Neut % (Auto) 88.3 H Lymph % (Auto) 6.7 L [place] % (Auto) 3.8 Eos % (Auto) 0.2 Baso % (Auto) 0.5 Lymph # (Auto) 0.8 L [place] # (Auto) 0.5 Eos # (Auto) 0.0 Baso # (Auto) 0.1 Abs Immat Gran (auto) 0.06 H Absolute Neuts (auto) 10.6 H Absolute Nucleated RBC 0.000 Nucleated RBC % (auto) 0.0 Anion Gap 19 Estim Creat Clear Calc 55.7 Estimated GFR 50 Random Glucose 248 H Calcium 10.2 Total Bilirubin 0.6 Direct Bilirubin 0.3 AST 23 ALT 14 Alkaline Phosphatase 63 Total Protein 7.6 Albumin 4.2 Lipase 922 H Assessment and Plan (1) Pancreatitis: Status: Acute Plan 67-year-old female with a past medical history of hypertension, hyperlipidemia, diabetes, CAD, history of pancreatic divisum, recurrent pancreatitis, asthma, vitamin-D deficiency; history of hypertriglyceridemia; presented to the hospital today with a chief complaint of abdominal pain. Noted to have acute pancreatitis. Admitted for further management. Acute on chronic pancreatitis: Patient has recurrent bouts of pancreatitis secondary to pancreatic divisum. Patient had spinning durotomy and sphincteroplasty in [place]. Status post cholecystectomy. Has been following with Dr. Corona as outpatient. Lipase currently elevated Will obtain CT abdomen Gastroenterology consult Pain control IV fluids NPO Triglyceride levels pending History of hypertension she was hyperlipidemia: Continue home amlodipine/statin. Hold enalapril for now History of diabetes: Insulin sliding scale. History of CAD: Continue home statin/metoprolol. DVT prophylaxis: Lovenox Code status: Full code Quality Stroke Does the patient have a stroke diagnosis?: No VTE Prior VTE?: No VTE Risk Level:: Medical - moderate - high VTE Device Contraindication: Treatment Not Indicated VTE Drug Contraindication: N/A - Med Ordered
[2022-05-24 02:49] LABS: Cholesterol 152 mg/dL; HDL Cholesterol 28 mg/dL; LDL Cholesterol Calculated 59 mg/dl; Triglycerides 325 mg/dL
[2022-05-24 03:38] LABS: COVID-19 Test Negative (Negative)
--- NOTE | 2022-05-24 03:52 | PC.NURSE ---
This RN spoke to Dr. Wolf reported to MD pt continues to report abdominal pain 9/10 on 0-10 pain scale-per Dr. Wolf's verbal order this RN may administer Dilaudid earlier then scheduled time.
[2022-05-24] MEDS: HYDROmorphone HCl 1 MG/ML SYRINGE 0.5 MG IVPUSH ×5 (03:55→21:36)
[2022-05-24] MEDS: Enoxaparin Sodium 40 MG/0.4 ML SYRINGE SUBCUT (03:56)
[2022-05-24] MEDS: 0.9 % Sodium Chloride 1,000 ML 50 ML IVCONT ×3 (03:56→23:30)
[2022-05-24 04:39] LABS: Appearance Urine Clear; Color Urine Yellow; Glucose Urine UA >=1000 mg/dL (Negative); Leukocyte Esterase Urine Trace (Negative); Nitrite Urine Negative (Negative); Specific Gravity - Urine 1.025 (1.005-1.025); UMIC TRIGGER UACC YES; Urine Blood Negative (Negative); Urine Ketones 15 mg/dL (Negative); Urine Protein 30 (1+) mg/dL (Neg-Trace)
[2022-05-24 04:41] LABS: Bacteria Urine None Seen (None Seen); Hyaline Casts Urine 0-2 /LPF (0-2); Squamous Epithelial Cell Urine 0-2 /HPF (0-2); WBC Urine 0-5 /HPF (0-5)
[2022-05-24 04:51] LABS: Basophils Percent Auto 0.3 % (0-2); Hematocrit 37.6 % (37.0-47.0); Hemoglobin 12.5 g/dl (12.0-16.0); Imm Gran Abs Auto 0.07 X10*3/uL (0.00-0.03); Imm Gran Pct Auto 0.6 % (0.0-0.4); Lymphocytes Absolute Auto 0.6 X10*3/uL (1.2-4.9); Lymphocytes Percent Auto 5.5 % (20-40); MANUAL DIFF FLAG SCAN; Mean Corpuscular HGB Conc 33.2 g/dl (31.0-35.0); Mean Corpuscular Hemoglobin 29.3 pg (27.0-33.0); Mean Corpuscular Volume 88.3 fL (80.0-98.0); Mean Platelet Volume 11.5 fL (9.4-12.3); Monocytes Absolute Auto 0.3 X10*3/uL (0.1-1.2); Monocytes Percent Auto 2.2 % (2-11); Neutrophils Absolute Auto 10.7 x10*3/uL (2.0-8.3); Neutrophils Percent Auto 91.4 % (45-73); Platelet Count 303 X10*3/uL (160-400); Red Blood Count 4.26 X10*6/uL (4.20-5.50); Red Cell Distribution Width 13.6 % (11.0-16.0); SCAN SMEAR FLAG 1; White Blood Count 11.7 X10*3/uL (4.8-10.8)
[2022-05-24 05:12] LABS: Anion Gap 17 (12-20); Blood Urea Nitrogen 16 mg/dL (9-16); Calcium 9.2 mg/dL (8.4-10.2); Carbon Dioxide 22 mmol/L (22-29); Chloride 100 mmol/L (96-108); Creatinine Clr Calc Pharmacy 62.6; Estimated Glomerular Filt Rate 58; Glucose Random 307 mg/dL (60-115); Potassium 4.3 mmol/L (3.3-5.1); Sodium 135 mmol/L (135-145)
[2022-05-24 05:14] LABS: SLIDE REVIEW VERIFIED
[2022-05-24 08:36] LABS: Lipase 719 U/L (8-78)
[2022-05-24 08:44] LABS: Glucose, Whole Blood 289 mg/dL (60-115)
[2022-05-24 09:20] LABS: Glucose, Whole Blood 295 mg/dL (60-115)
--- NOTE | 2022-05-24 09:24 | PHA.MEDREC ---
Pharmacy Consult ? Medication Reconciliation Pharmacy has reviewed the medication reconciliation by Pinky. Wanted more clarification on the insulin lispro. Called [facility] twice with no answer. SS is unknown.
[2022-05-24] MEDS: Fenofibrate 160 MG TABLET PO (09:33)
[2022-05-24] MEDS: Atorvastatin Calcium 40 MG TABLET PO (09:33)
[2022-05-24] MEDS: Omeprazole 20 MG CAPSULE.DR PO (09:33)
[2022-05-24] MEDS: Metoprolol Tartrate 100 MG TABLET PO ×2 (09:33→21:41)
[2022-05-24] MEDS: amLODIPine Besylate 10 MG TABLET PO (09:33)
[2022-05-24 10:56] LABS: Glucose, Whole Blood 310 mg/dL (60-115)
[2022-05-24] MEDS: Insulin Lispro 100 UNIT/ML 3 ML VIAL SUBCUT ×3 (12:16→21:41)
--- NOTE | 2022-05-24 13:25 | HO.PM.IMPN ---
Subjective Subjective Date of Service: 05/24/22 Interval History: Seen and examined this morning Follow-up for pancreatitis Patient reports 3 days of mid abdominal pain with associated nausea and vomiting. Denies any fever, chills, diarrhea Review of Systems Review of Systems: Yes all other systems are reviewed and are negative Constitutional Constitutional: Denies chills and Denies fever(s) Cardiovascular Cardiovascular: Denies chest pain Gastrointestinal Gastrointestinal: Reports abdominal pain, Denies diarrhea, Reports nausea and Reports vomiting Physical Exam Vital Signs: Vital Signs: Last Vital Signs Temp 97.3 F 05/24/22 09:12 Pulse 84 05/24/22 09:12 Resp 16 05/24/22 09:12 BP 196/65 H 05/24/22 09:12 Pulse Ox 100 05/24/22 09:12 O2 Del Method 05/24/22 09:12 O2 Flow Rate 1 05/24/22 09:12 BMI result Body Mass Index 36.8 Const: General: alert and awake Nutritional Appearance: overweight Orientation/consciousness: patient oriented x3 Resp: Effort & Inspection: normal respiratory effort and able to speak in complete sentences Auscultation: clear to auscultation bilaterally Cardio: Rate: regular rate Heart sounds: S1 normal heart sound present and S2 normal heart sound present GI: Other: mid abdominal/epigastric tenderness +BS Inspection: No distended Palpation (GI): Soft to palpation Neuro: General: patient oriented x3 and CN's II-XI intact bilaterally Extrem: Other: Able to move all 4 extremities spontaneously General: Yes no pedal edema Objective Data Active Medications Acetaminophen (Acetaminophen 325 Mg Tablet) 650 mg PO Q6H PRN PRN Reason: Pain, Mild (Pain Scale 1-3) Amlodipine Besylate (Amlodipine Besylate 10 Mg Tablet) 10 mg PO DAILY [facility]; Protocol Last Admin: 05/24/22 09:33 Dose: 10 mg Documented By: BETTY Atorvastatin Calcium (Atorvastatin Calcium 40 Mg Tablet) 40 mg PO DAILY [facility] Last Admin: 05/24/22 09:33 Dose: 40 mg Documented By: BETTY Dextrose (Dextrose 50 % 25 Gm/50 Ml Syringe) 25 gm IVPUSH Q15M PRN; Protocol PRN Reason: per Hypoglycemia Standing Ord. Enoxaparin Sodium (Enoxaparin Sodium 40 Mg/0.4 Ml Syringe) 40 mg SUBCUT Q24H [facility] Last Admin: 05/24/22 03:56 Dose: 40 mg Documented By: DENILSON Fenofibrate (Fenofibrate 160 Mg Tablet) 160 mg PO DAILY [facility] Last Admin: 05/24/22 09:33 Dose: 160 mg Documented By: BETTY Gabapentin (Gabapentin 300 Mg Capsule) 900 mg PO BEDTIME [facility] Glucose (Glucose Gel 15 Gm Gel..Gram.) 15 gm PO Q15M PRN; Protocol PRN Reason: per Hypoglycemia Standing Ord. Hydromorphone HCl (Hydromorphone Hcl 1 Mg/Ml Syringe) 0.5 mg IVPUSH Q4H PRN; Protocol PRN Reason: Pain, Severe (Pain Scale 7-10) Last Admin: 05/24/22 12:15 Dose: 0.5 mg Documented By: BETTY Sodium Chloride (Ns) 1,000 mls @ 125 mls/hr IVCONT .Q8H [facility] Last Admin: 05/24/22 03:56 Dose: 50 mls/hr Documented By: DENILSON Insulin Human Lispro (Insulin Lispro 100 Unit/Ml 3 Ml Vial) 0 unit SUBCUT QIDACHS [facility]; Protocol Last Admin: 05/24/22 12:16 Dose: 8 unit Documented By: BETTY Melatonin (Melatonin 3 Mg Tablet) 6 mg PO BEDTIME PRN PRN Reason: Insomnia Metoprolol Tartrate (Metoprolol Tartrate 100 Mg Tablet) 100 mg PO BID [facility]; Protocol Last Admin: 05/24/22 09:33 Dose: 100 mg Documented By: BETTY Omeprazole (Omeprazole 20 Mg Capsule.) 20 mg PO DAILY [facility] Last Admin: 05/24/22 09:33 Dose: 20 mg Documented By: BETTY Ondansetron HCl (Ondansetron Hcl 4 Mg/2 Ml Vial) 4 mg IVPUSH Q8H PRN PRN Reason: Nausea and Vomiting Last Admin: 05/24/22 09:33 Dose: 4 mg Documented By: BETTY Oxycodone HCl (Oxycodone Hcl Immed Release 5 Mg Tablet) 10 mg PO QID PRN PRN Reason: Pain, Moderate (Pain Scale 4-6 Senna (Sennosides 8.6 Mg Tablet) 17.2 mg PO BEDTIME PRN PRN Reason: Constipation Sodium Chloride (0.9 % Sodium Chloride Flush 3 Ml Syringe) 3 ml IVFLUSH QSHIFT ALYSSA Last Admin: 05/24/22 09:21 Dose: Not Given Documented By: BETTY Non-Admin Reason: IV Running Labs CBC & Chem 7: 05/24/22 04:21 05/24/22 04:21 Labs: Laboratory Results - last 24 hr 05/23/22 05/23/22 05/24/22 23:01 23:01 02:59 MCV 85.9 MCH 28.6 MCHC 33.2 RDW 13.3 Plt Count 341 MPV 10.9 Immature Gran % (Auto) 0.5 H Neut % (Auto) 88.3 H Lymph % (Auto) 6.7 L [place] % (Auto) 3.8 Eos % (Auto) 0.2 Baso % (Auto) 0.5 Lymph # (Auto) 0.8 L [place] # (Auto) 0.5 Eos # (Auto) 0.0 Baso # (Auto) 0.1 Abs Immat Gran (auto) 0.06 H Absolute Neuts (auto) 10.6 H Absolute Nucleated RBC 0.000 Nucleated RBC % (auto) 0.0 Smear Tech's Comments Anion Gap 19 Estim Creat Clear Calc 55.7 Estimated GFR 50 POC Glucose Random Glucose 248 H Calcium 10.2 Total Bilirubin 0.6 Direct Bilirubin 0.3 AST 23 ALT 14 Alkaline Phosphatase 63 Total Protein 7.6 Albumin 4.2 Triglycerides 325 Cholesterol 152 LDL Cholesterol, Calc 59 HDL Cholesterol 28 Lipase 922 H Urine Color Urine Appearance Urine pH Ur Specific [place] Urine Protein Urine Glucose (UA) Urine Ketones Urine Blood Urine Nitrite Ur Leukocyte Esterase Urine RBC Urine WBC Ur Squamous Epith Cells Urine Bacteria Hyaline Casts COVID-19 (LATONYA) Negative COVID-19 Clin Com See Note 05/24/22 05/24/22 05/24/22 04:21 04:21 04:30 MCV 88.3 MCH 29.3 MCHC 33.2 RDW 13.6 Plt Count 303 MPV 11.5 Immature Gran % (Auto) 0.6 H Neut % (Auto) 91.4 H Lymph % (Auto) 5.5 L [place] % (Auto) 2.2 Eos % (Auto) 0.0 Baso % (Auto) 0.3 Lymph # (Auto) 0.6 L [place] # (Auto) 0.3 Eos # (Auto) 0.0 Baso # (Auto) 0.0 Abs Immat Gran (auto) 0.07 H Absolute Neuts (auto) 10.7 H Absolute Nucleated RBC 0.000 Nucleated RBC % (auto) 0.0 Smear Tech's Comments VERIFIED Anion Gap 17 Estim Creat Clear Calc 62.6 Estimated GFR 58 POC Glucose Random Glucose 307 H Calcium 9.2 D Total Bilirubin Direct Bilirubin AST ALT Alkaline Phosphatase Total Protein Albumin Triglycerides Cholesterol LDL Cholesterol, Calc HDL Cholesterol Lipase 719 H Urine Color Yellow Urine Appearance Clear Urine pH 6.0 Ur Specific [place] 1.025 Urine Protein 30 (1+) H Urine Glucose (UA) >=1000 H Urine Ketones 15 Urine Blood Negative Urine Nitrite Negative Ur Leukocyte Esterase Trace H Urine RBC 3-5 H Urine WBC 0-5 Ur Squamous Epith Cells 0-2 Urine Bacteria None Seen Hyaline Casts 0-2 COVID-19 (LATONYA) COVID-19 Clin Com 05/24/22 05/24/22 05/24/22 07:18 09:16 10:52 MCV MCH MCHC RDW Plt Count MPV Immature Gran % (Auto) Neut % (Auto) Lymph % (Auto) [place] % (Auto) Eos % (Auto) Baso % (Auto) Lymph # (Auto) [place] # (Auto) Eos # (Auto) Baso # (Auto) Abs Immat Gran (auto) Absolute Neuts (auto) Absolute Nucleated RBC Nucleated RBC % (auto) Smear Tech's Comments Anion Gap Estim Creat Clear Calc Estimated GFR POC Glucose 289 H 295 H 310 H Random Glucose Calcium Total Bilirubin Direct Bilirubin AST ALT Alkaline Phosphatase Total Protein Albumin Triglycerides Cholesterol LDL Cholesterol, Calc HDL Cholesterol Lipase Urine Color Urine Appearance Urine pH Ur Specific [place] Urine Protein Urine Glucose (UA) Urine Ketones Urine Blood Urine Nitrite Ur Leukocyte Esterase Urine RBC Urine WBC Ur Squamous Epith Cells Urine Bacteria Hyaline Casts COVID-19 (LATOYNA) COVID-19 Clin Com Assessment and Plan (1) Pancreatitis: Status: Acute Plan 67-year-old female with a past medical history of hypertension, hyperlipidemia, diabetes, CAD, history of pancreatic divisum, recurrent pancreatitis, asthma, vitamin-D deficiency; history of hypertriglyceridemia; presented to the hospital today with a chief complaint of abdominal pain. Noted to have acute pancreatitis. Admitted for further management. Acute pancreatitis r/t pancreas divisum; TG 325, no etoh, gallstone Patient has recurrent bouts of pancreatitis secondary to pancreatic divisum. follows with Dr. Corona Lipase elevated at 922, trending down; LFTs wnl Gastroenterology consult pending -Pain control -IV fluids -NPO -consider hypertension -continue Norvasc, metoprolol, enalapril -lasix on hold Hyperlipidemia -continue statin, Lofibra History of diabetes: on 75U levimir at baseline currently NPO - will convert to Lantus and decrease dose until tolerating diet Insulin sliding scale. History of CAD: Continue home statin/metoprolol. chronic pain continue home pain medication DVT prophylaxis: Viibarnox Code status: Full code attending - dr. Varela Requires ongoing inpatient hospitalization for management of acute pancreatitis including IV pain control, fluids, GI evaluation Quality Stroke Does the patient have a stroke diagnosis?: No VTE Prior VTE?: No VTE Risk Level:: Medical - moderate - high VTE Device Contraindication: Treatment Not Indicated VTE Drug Contraindication: N/A - Med Ordered
[2022-05-24 16:20] LABS: Glucose, Whole Blood 275 mg/dL (60-115)
[2022-05-24] MEDS: oxyCODONE HCl Immed Release 5 MG TABLET 10 MG PO (18:00)
--- NOTE | 2022-05-24 18:01 | P.EN_ITS ---
Event Note Date of Service: 05/24/22 Event Note: GI Consult-Full note dictated-History from patient and EMR Imp: Recurrent pancreatitis in a 67 yo female with known hypertriglyceridemia and pancreas divisum. She was last admitted for this in 10/2021, although she does have intermittent flare ups at home that she does not come in for. She did have COVID in 04/2022 with primarily GI symptoms that did seem to exacerbate the pancreatitis as well. She appears stable at the present time, with pain being the main issue. At the present time her TG's are not significantly elevated, there is no evidence of biliary disease on the MRI/MRCP, and there is no obvious evidence of pancreatic ductal disease on the MRI/MRCP. The etiology of the ongoing recurrent episodes of her pancreatitis is not entirely clear at this time. Rec: Supportive care, F/U labs, analgesics, NPO, but advance diet as her pain permits. I have discussed with her in the past and more recently about the option of being reevaluated at [facility](where she had her previous endoscopic and surgical sphincteroplasties of the minor papilla in regard to her pancreas divisum and pancreatitis). I think that would be reasonable at some point. They may want to have her undergo further investigation with at least an Endoscopic U/S of the pancreas, as well as an ERCP. I will adress that with her again as an outpatient. Thanks.
[2022-05-24 20:01] LABS: Glucose, Whole Blood 266 mg/dL (60-115)
[2022-05-24] MEDS: Melatonin 3 MG TABLET 6 MG PO (21:41)
[2022-05-24] MEDS: Gabapentin 300 MG CAPSULE 900 MG PO (21:41)
[2022-05-24] MEDS: Enalapril Maleate 10 MG TABLET 20 MG PO (21:41)
[2022-05-25] MEDS: HYDROmorphone HCl 1 MG/ML SYRINGE 0.5 MG IVPUSH ×5 (02:00→20:28)
[2022-05-25] MEDS: ondansetron HCL 4 MG/2 ML VIAL IVPUSH (02:03)
[2022-05-25] MEDS: Enoxaparin Sodium 40 MG/0.4 ML SYRINGE SUBCUT (02:53)
--- NOTE | 2022-05-25 04:58 | CONS_ITS ---
DATE OF SERVICE: 05/24/2022 REASON FOR CONSULTATION: Pancreatitis and abdominal pain. HISTORY OF PRESENT ILLNESS: The patient is a 67-year-old female, well known to me with a known previous history of multiple episodes of pancreatitis, felt to be in relation to both hypertriglyceridemia and known pancreas divisum. She has had pancreatitis on multiple occasions dating back as far as into the . Many of those initial episodes were quite severe with multiple metabolic abnormalities requiring ICU admissions. She was found to have the above-mentioned hypertriglyceridemia and pancreas divisum. She has been on medical therapy for the hypertriglyceridemia. She underwent an endoscopic sphincterotomy and surgical sphincteroplasty of the minor papilla at [facility] to try to treat the pancreas divisum component of the pancreatitis. She was last admitted here in October. Since that time, she has had intermittent episodes of abdominal pain, particularly the last month when she had COVID, but did not come to the hospital. She came in yesterday due to more severe pain over the past 4 days. She did have some vomiting but no sign of bleeding. She had been having some diarrhea in April but has not had any diarrhea lately. She denies any hematochezia nor melena. She has not noticed any jaundice. Over the 24 hours, she has been here she continues with abdominal pain. She denies any urinary symptoms. There is no known family history of pancreatic disease. She does not use any alcohol. MEDICATIONS: At home included hydralazine, Lipitor, Neurontin, Lopressor, enalapril, Tricor, oxycodone p.r.n., furosemide, Prevacid, insulin. Her medications here in the hospital include amlodipine, atorvastatin, enalapril, Lovenox, fenofibrate, gabapentin, Dilaudid, insulin, melatonin, metoprolol, omeprazole, Zofran, oxycodone, and Senokot. PAST MEDICAL HISTORY: Pancreatitis as above. Hypertriglyceridemia. Pancreas divisum. Gastroesophageal reflux with Ro's esophagus. Pulmonary embolus. Endometrial cancer, status post hysterectomy. In regard to the pancreatitis, she has had negative laboratories for autoimmune pancreatitis with IgG levels and HEMA. Negative colonoscopies in 2004, 2011, and 2017. Her most recent upper endoscopy was in 2019. Insulin-dependent diabetes mellitus. Hypertension. Asthma. PAST SURGICAL HISTORY: Hysterectomy as above, right inguinal hernia, surgical sphincteroplasty and endoscopic sphincterotomy of the minor papilla in relation to the pancreas divisum at [facility]. Cholecystectomy. Right knee surgery. Wrist surgery. SOCIAL HISTORY: She is . She does not smoke, nor use any alcohol presently nor in the past. 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 FAMILY HISTORY: Negative for pancreatic disease. Her father had colon cancer, as did a paternal grandfather. REVIEW OF SYSTEMS: CONSTITUTIONAL: She has been feeling fairly poorly at home in relation to the recent COVID and ongoing issues with pancreatitis. CARDIAC: No chest pain. PULMONARY: No cough, no hemoptysis. GI: As above. URINARY: No dysuria, no hematuria. PHYSICAL EXAMINATION: GENERAL: The patient is a pleasant, alert, but uncomfortable appearing female. She has been afebrile. Her heart rate has been normal, without tachycardia. Blood pressure has been stable without any hypotension. SKIN: Warm and dry. Nonjaundiced. Anicteric sclerae. NECK: Supple. CHEST: Clear. CARDIAC: Normal S1, S2. ABDOMEN: Soft and slightly distended. Bowel sounds are diminished. She has mild diffuse tenderness. There is no palpable mass. LABORATORY DATA: She had a MRI of the abdomen this evening which describes findings consistent with some pancreatic edema consistent with pancreatitis. However, there was no evidence of any pancreatic ductal abnormality such as a stricture, dilatation, nor stone. The common bile duct appeared to be mildly dilated consistent with her previous cholecystectomy, but there was no evidence of any choledocholithiasis. There was no sign of any pseudocyst, mass, nor necrosis. White count 11.7, hemoglobin 12.5. Hemoglobin on admission was 13.2. Platelets 303,000. Normal electrolytes. BUN 16, creatinine 0.96, blood sugar 307, calcium 9.2. Liver profile last night was completely normal including albumin of 4.2. Initial lipase was 922 with repeat of 719. Triglyceride 325. IMPRESSION: The patient is a 67-year-old female presenting with recurrent pancreatitis in relation to underlying hypertriglyceridemia and pancreas divisum. However, the exact etiology of her ongoing symptoms is not entirely clear given that the triglyceride level seems to have been fairly well managed at this point with an admission triglyceride level of only 325. The MRI does show findings consistent with pancreatitis, but there was no sign of any pancreatic ductal stricture nor stone. I do not think any of her medications would predispose her to pancreatitis, and she obviously has no history of alcohol use. Therefore, the recurrent episodes may be related to some pancreatic ductal disease that is just not apparent on the MRI. I doubt the triglyceride level of just over 300 would account for pancreatitis. At this point, I would recommend continued management with supportive care, followup of her laboratories, analgesics, and n.p.o. until her pain subsides. Once she has improved, she can be discharged and I will revisit the idea of her being seen at [facility] again at their [facility] where she had her previous ERCP and surgery for the pancreas divisum. I think it would be reasonable for her to be seen there for an opinion, as well as to possibly have some other procedures such as an endoscopic ultrasound of the pancreas and a possible repeat ERCP for definitive evaluation of her anatomy and to see if there is any other etiology of her ongoing issues given that this was already her second admission this year, and she continues to have problems fairly chronically at home with abdominal pain. I had reviewed this with her on previous occasions in the office as well. I do not think she needs any type of endoscopic intervention at this time during this acute phase. I do not think any further imaging studies are needed unless she was to become clinically unstable with fevers and worsening pain, in which case I would recommend a CT scan. However, at this time I do not think that is necessary, and hopefully she will improve with supportive care and be able to be discharged in the relatively near future so we can discuss further plans as an outpatient. This has all been discussed with her in detail and she is comfortable with this plan. Thank you for the consultation. MD LISSA Romero/OLIVIA / [id number] [email or web address]
[2022-05-25 06:20] LABS: MANUAL DIFF FLAG NO
[2022-05-25] MEDS: 0.9 % Sodium Chloride 1,000 ML 50 ML IVCONT (06:22)
[2022-05-25 06:27] LABS: Basophils Absolute Auto 0.1 X10*3/uL (0.0-0.2); Basophils Percent Auto 0.6 % (0-2); Eosinophils Absolute Auto 0.2 X10*3/uL (0.0-0.4); Eosinophils Percent Auto 2.3 % (0-4); Hemoglobin 11.3 g/dl (12.0-16.0); Imm Gran Abs Auto 0.04 X10*3/uL (0.00-0.03); Imm Gran Pct Auto 0.5 % (0.0-0.4); Lymphocytes Absolute Auto 1.3 X10*3/uL (1.2-4.9); Lymphocytes Percent Auto 15.3 % (20-40); Mean Corpuscular HGB Conc 32.3 g/dl (31.0-35.0); Mean Corpuscular Hemoglobin 28.7 pg (27.0-33.0); Mean Corpuscular Volume 88.8 fL (80.0-98.0); Mean Platelet Volume 11.8 fL (9.4-12.3); Monocytes Absolute Auto 0.5 X10*3/uL (0.1-1.2); Monocytes Percent Auto 5.8 % (2-11); Neutrophils Absolute Auto 6.5 x10*3/uL (2.0-8.3); Neutrophils Percent Auto 75.5 % (45-73); Platelet Count 277 X10*3/uL (160-400); Red Blood Count 3.94 X10*6/uL (4.20-5.50); Red Cell Distribution Width 13.2 % (11.0-16.0); White Blood Count 8.6 X10*3/uL (4.8-10.8)
[2022-05-25 07:10] LABS: Alanine Aminotransferase 11 U/L (0-31); Albumin Level 3.3 g/dL (3.5-5.0); Alkaline Phosphatase 47 U/L (39-117); Anion Gap 16 (12-20); Aspartate Amino Transferase 17 U/L (5-31); Bilirubin Direct 0.3 mg/dL (0.0-0.5); Bilirubin Total 0.4 mg/dL (0.0-1.0); Blood Urea Nitrogen 12 mg/dL (9-16); Calcium 8.4 mg/dL (8.4-10.2); Carbon Dioxide 17 mmol/L (22-29); Chloride 107 mmol/L (96-108); Creatinine Clr Calc Pharmacy 83.6; Estimated Glomerular Filt Rate > 60; Glucose Fasting 203 mg/dL (60-99); Lipase 297 U/L (8-78); Potassium 3.9 mmol/L (3.3-5.1); Sodium 136 mmol/L (135-145); Total Protein 5.8 g/dL (6.5-8.0)
[2022-05-25] MEDS: Insulin Lispro 100 UNIT/ML 3 ML VIAL SUBCUT ×3 (07:39→20:29)
[2022-05-25 07:45] LABS: Glucose, Whole Blood 198 mg/dL (60-115)
[2022-05-25 08:00] VITALS: BP 162/72; PULSE 69; RESP 20; TEMP 37.1; O2SAT 97
[2022-05-25] MEDS: Enalapril Maleate 10 MG TABLET 20 MG PO ×2 (09:14→20:30)
[2022-05-25] MEDS: Metoprolol Tartrate 100 MG TABLET PO ×2 (09:14→20:30)
[2022-05-25] MEDS: Insulin Glargine,Hum.rec.anlog 100 UNIT/ML 10 ML VIAL 15 UNIT SUBCUT (09:15)
[2022-05-25] MEDS: Atorvastatin Calcium 40 MG TABLET PO (09:15)
[2022-05-25] MEDS: Omeprazole 20 MG CAPSULE.DR PO (09:15)
[2022-05-25] MEDS: amLODIPine Besylate 10 MG TABLET PO (09:15)
[2022-05-25] MEDS: Fenofibrate 160 MG TABLET PO (09:15)
[2022-05-25] MEDS: oxyCODONE HCl Immed Release 5 MG TABLET 10 MG PO (09:57)
[2022-05-25 11:15] LABS: Glucose, Whole Blood 214 mg/dL (60-115)
--- NOTE | 2022-05-25 12:47 | MHC.CM.PN ---
PT REPORTS SHE LIVES WITH HER , IS FULLY INDEPENDENT, WORKS AND DRIVES PT DENIES USE OF HOME SERVICES AND SAYS SHE HAS A CANE SHE USES PRN, BUT HAS NOT USED FOR AT LEAST A YEAR PT DECLINES TO COMPLETE A HCP SHE IS NOT COVID VACCINATED PCP: ELADIA SAENZ IMM DELIVERED CURRENT DC PLAN IS HOME WITH NO SERVICES TO TRANSPORT
--- NOTE | 2022-05-25 13:42 | HO.PM.IMPN ---
Subjective Subjective Date of Service: 05/25/22 Interval History: seen and examined this morning follow up for pancreatitis still with abdominal pain and nausea, concerned about trying to eat Review of Systems Review of Systems: Yes all other systems are reviewed and are negative Constitutional Constitutional: Denies chills and Denies fever(s) ENT Ears, Nose, Mouth, and Throat: Denies dizziness Cardiovascular Cardiovascular: Denies chest pain, Denies palpitations and Denies dyspnea Respiratory Respiratory: Denies cough and Denies dyspnea Gastrointestinal Gastrointestinal: Reports abdominal pain, Reports nausea and Denies vomiting Neurologic Neurologic: Denies dizziness Endocrine Endocrine: Denies palpitations Physical Exam Vital Signs: Vital Signs: Last Vital Signs Temp 98.7 F 05/25/22 08:00 Pulse 69 05/25/22 08:00 Resp 20 05/25/22 08:00 BP 162/72 H 05/25/22 08:00 Pulse Ox 97 05/25/22 08:00 O2 Del Method 05/25/22 08:00 O2 Flow Rate 1 05/24/22 09:12 BMI result Body Mass Index 36.8 Const: General: alert and awake Nutritional Appearance: overweight Orientation/consciousness: patient oriented x3 Resp: Effort & Inspection: normal respiratory effort and able to speak in complete sentences Auscultation: clear to auscultation bilaterally Cardio: Rate: regular rate Heart sounds: S1 normal heart sound present and S2 normal heart sound present GI: Other: mid abdominal/epigastric tenderness +BS Inspection: No distended Palpation (GI): Soft to palpation Neuro: General: patient oriented x3 and CN's II-XI intact bilaterally Extrem: Other: Able to move all 4 extremities spontaneously General: Yes no pedal edema Objective Data Active Medications Acetaminophen (Acetaminophen 325 Mg Tablet) 650 mg PO Q6H PRN PRN Reason: Pain, Mild (Pain Scale 1-3) Amlodipine Besylate (Amlodipine Besylate 10 Mg Tablet) 10 mg PO DAILY [facility]; Protocol Last Admin: 05/25/22 09:15 Dose: 10 mg Documented By: ANTHONY Atorvastatin Calcium (Atorvastatin Calcium 40 Mg Tablet) 40 mg PO DAILY [facility] Last Admin: 05/25/22 09:15 Dose: 40 mg Documented By: ANTHONY Dextrose (Dextrose 50 % 25 Gm/50 Ml Syringe) 25 gm IVPUSH Q15M PRN; Protocol PRN Reason: per Hypoglycemia Standing Ord. Enalapril Maleate (Enalapril Maleate 10 Mg Tablet) 20 mg PO BID [facility]; Protocol Last Admin: 05/25/22 09:14 Dose: 20 mg Documented By: ANTHONY Enoxaparin Sodium (Enoxaparin Sodium 40 Mg/0.4 Ml Syringe) 40 mg SUBCUT Q24H [facility] Last Admin: 05/25/22 02:53 Dose: 40 mg Documented By: ZEINAB Fenofibrate (Fenofibrate 160 Mg Tablet) 160 mg PO DAILY [facility] Last Admin: 05/25/22 09:15 Dose: 160 mg Documented By: ANTHONY Gabapentin (Gabapentin 300 Mg Capsule) 900 mg PO BEDTIME [facility] Last Admin: 05/24/22 21:41 Dose: 900 mg Documented By: ZEINAB Glucose (Glucose Gel 15 Gm Gel..Gram.) 15 gm PO Q15M PRN; Protocol PRN Reason: per Hypoglycemia Standing Ord. Hydromorphone HCl (Hydromorphone Hcl 1 Mg/Ml Syringe) 0.5 mg IVPUSH Q4H PRN; Protocol PRN Reason: Pain, Severe (Pain Scale 7-10) Last Admin: 05/25/22 11:55 Dose: 0.5 mg Documented By: ANTHONY Sodium Chloride (Ns) 1,000 mls @ 125 mls/hr IVCONT .Q8H [facility] Last Admin: 05/25/22 06:22 Dose: 50 mls/hr Documented By: ZEINAB Insulin Glargine (Insulin Glargine,Hum.Rec.Anlog 100 Unit/Ml 10 Ml Vial) 15 unit SUBCUT DAILY [facility] Last Admin: 05/25/22 09:15 Dose: 15 unit Documented By: ANTHONY Insulin Human Lispro (Insulin Lispro 100 Unit/Ml 3 Ml Vial) 0 unit SUBCUT QIDACHS [facility]; Protocol Last Admin: 05/25/22 11:46 Dose: 4 unit Documented By: ANTHONY Melatonin (Melatonin 3 Mg Tablet) 6 mg PO BEDTIME PRN PRN Reason: Insomnia Last Admin: 05/24/22 21:41 Dose: 6 mg Documented By: ZEINAB Metoprolol Tartrate (Metoprolol Tartrate 100 Mg Tablet) 100 mg PO BID [facility]; Protocol Last Admin: 05/25/22 09:14 Dose: 100 mg Documented By: ANTHONY Omeprazole (Omeprazole 20 Mg Capsule.Dr) 20 mg PO DAILY [facility] Last Admin: 05/25/22 09:15 Dose: 20 mg Documented By: ANTHONY Ondansetron HCl (Ondansetron Hcl 4 Mg/2 Ml Vial) 4 mg IVPUSH Q8H PRN PRN Reason: Nausea and Vomiting Last Admin: 05/25/22 02:03 Dose: 4 mg Documented By: ZEINAB Oxycodone HCl (Oxycodone Hcl Immed Release 5 Mg Tablet) 10 mg PO QID PRN PRN Reason: Pain, Moderate (Pain Scale 4-6 Last Admin: 05/25/22 09:57 Dose: 10 mg Documented By: ANTHONY Senna (Sennosides 8.6 Mg Tablet) 17.2 mg PO BEDTIME PRN PRN Reason: Constipation Sodium Chloride (0.9 % Sodium Chloride Flush 3 Ml Syringe) 3 ml IVFLUSH QSHIFT [facility] Last Admin: 05/25/22 09:11 Dose: Not Given Documented By: ANTHONY Non-Admin Reason: IV Running Labs CBC & Chem 7: 05/25/22 05:18 05/25/22 05:18 Labs: Laboratory Results - last 24 hr 05/24/22 05/24/22 05/25/22 16:09 19:40 05:18 MCV 88.8 MCH 28.7 MCHC 32.3 RDW 13.2 Plt Count 277 MPV 11.8 Immature Gran % (Auto) 0.5 H Neut % (Auto) 75.5 H Lymph % (Auto) 15.3 L [place] % (Auto) 5.8 Eos % (Auto) 2.3 Baso % (Auto) 0.6 Lymph # (Auto) 1.3 [place] # (Auto) 0.5 Eos # (Auto) 0.2 Baso # (Auto) 0.1 Abs Immat Gran (auto) 0.04 H Absolute Neuts (auto) 6.5 Absolute Nucleated RBC 0.000 Nucleated RBC % (auto) 0.0 Anion Gap Estim Creat Clear Calc Estimated GFR POC Glucose 275 H 266 H Fasting Glucose Calcium Total Bilirubin Direct Bilirubin AST ALT Alkaline Phosphatase Total Protein Albumin Lipase 05/25/22 05/25/22 05/25/22 05:18 07:25 11:03 MCV MCH MCHC RDW Plt Count MPV Immature Gran % (Auto) Neut % (Auto) Lymph % (Auto) [place] % (Auto) Eos % (Auto) Baso % (Auto) Lymph # (Auto) [place] # (Auto) Eos # (Auto) Baso # (Auto) Abs Immat Gran (auto) Absolute Neuts (auto) Absolute Nucleated RBC Nucleated RBC % (auto) Anion Gap 16 Estim Creat Clear Calc 83.6 Estimated GFR > 60 POC Glucose 198 H 214 H Fasting Glucose 203 H Calcium 8.4 D Total Bilirubin 0.4 Direct Bilirubin 0.3 AST 17 ALT 11 Alkaline Phosphatase 47 D Total Protein 5.8 L D Albumin 3.3 L D Lipase 297 H Assessment and Plan (1) Pancreatitis: Status: Acute Plan 67-year-old female with a past medical history of hypertension, hyperlipidemia, diabetes, CAD, history of pancreatic divisum, recurrent pancreatitis, asthma, vitamin-D deficiency; history of hypertriglyceridemia; presented to the hospital today with a chief complaint of abdominal pain. Noted to have acute pancreatitis. Admitted for further management. Acute pancreatitis r/t pancreas divisum; TG 325, no etoh, gallstone Patient has recurrent bouts of pancreatitis secondary to pancreatic divisum. follows with Dr. Corona Lipase elevated at 922, trending down; LFTs wnl MRCP with no evidence of biliary disease Seen by GI, continue current management -Pain control -IV fluids -advanced to clear liquid hypertension -continue Norvasc, metoprolol, enalapril -lasix on hold Hyperlipidemia -continue statin, Lofibra History of diabetes: on 75U levimir at baseline currently NPO - will convert to Lantus and decrease dose until tolerating diet Insulin sliding scale. History of CAD: Continue home statin/metoprolol. chronic pain continue home pain medication DVT prophylaxis: Lovenox Code status: Full code attending - Dr. Smalls Requires ongoing inpatient hospitalization for management of acute pancreatitis including IV pain control, fluids, GI evaluation Quality Stroke Does the patient have a stroke diagnosis?: No VTE Prior VTE?: No VTE Risk Level:: Medical - moderate - high VTE Device Contraindication: Treatment Not Indicated VTE Drug Contraindication: N/A - Med Ordered
[2022-05-25] MEDS: 0.9 % Sodium Chloride 1,000 ML 125 ML IVCONT ×2 (14:51→22:49)
[2022-05-25 15:25] VITALS: BP 170/80; PULSE 66; RESP 18; TEMP 36.3; O2SAT 94
[2022-05-25 16:01] LABS: Glucose, Whole Blood 150 mg/dL (60-115)
--- NOTE | 2022-05-25 19:08 | PM.GIPN ---
Subjective Subjective Date of Service: 05/25/22 Interval History: Patient seen at 2PM today. Still having pain, but perhaps a little better. Passing flatus, no N/V, no sx. Not hungry. Afebrile Critical Care Time (minutes): 0 Physical Exam Vital Signs: Vital Signs: Last Vital Signs Temp 97.4 F 05/25/22 15:25 Pulse 66 05/25/22 15:25 Resp 18 05/25/22 15:25 BP 170/80 H 05/25/22 15:25 Pulse Ox 94 05/25/22 15:25 O2 Del Method 05/25/22 15:25 O2 Flow Rate 1 05/24/22 09:12 BMI result Body Mass Index 36.8 Const: General: cooperative, healthy appearing, no acute distress, well developed, alert and awake Eyes: Sclerae: sclerae normal (Anicteric) GI: Other: BS present but diminished, soft, diffuse tenderness Objective Data Labs CBC & Chem 7: 05/25/22 05:18 05/25/22 05:18 Labs: Laboratory Results - last 24 hr 05/24/22 05/25/22 05/25/22 19:40 05:18 05:18 WBC 8.6 RBC 3.94 L Hgb 11.3 L Hct 35.0 L MCV 88.8 MCH 28.7 MCHC 32.3 RDW 13.2 Plt Count 277 MPV 11.8 Immature Gran % (Auto) 0.5 H Neut % (Auto) 75.5 H Lymph % (Auto) 15.3 L [place] % (Auto) 5.8 Eos % (Auto) 2.3 Baso % (Auto) 0.6 Lymph # (Auto) 1.3 [place] # (Auto) 0.5 Eos # (Auto) 0.2 Baso # (Auto) 0.1 Abs Immat Gran (auto) 0.04 H Absolute Neuts (auto) 6.5 Absolute Nucleated RBC 0.000 Nucleated RBC % (auto) 0.0 Sodium 136 Potassium 3.9 Chloride 107 Carbon Dioxide 17 L Anion Gap 16 BUN 12 Creatinine 0.72 Estim Creat Clear Calc 83.6 Estimated GFR > 60 POC Glucose 266 H Fasting Glucose 203 H Calcium 8.4 D Total Bilirubin 0.4 Direct Bilirubin 0.3 AST 17 ALT 11 Alkaline Phosphatase 47 D Total Protein 5.8 L D Albumin 3.3 L D Lipase 297 H 09/16/22 09/16/22 09/16/22 07:25 11:03 15:35 WBC RBC Hgb Hct MCV MCH MCHC RDW Plt Count MPV Immature Gran % (Auto) Neut % (Auto) Lymph % (Auto) [place] % (Auto) Eos % (Auto) Baso % (Auto) Lymph # (Auto) [place] # (Auto) Eos # (Auto) Baso # (Auto) Abs Immat Gran (auto) Absolute Neuts (auto) Absolute Nucleated RBC Nucleated RBC % (auto) Sodium Potassium Chloride Carbon Dioxide Anion Gap BUN Creatinine Estim Creat Clear Calc Estimated GFR POC Glucose 198 H 214 H 150 H Fasting Glucose Calcium Total Bilirubin Direct Bilirubin AST ALT Alkaline Phosphatase Total Protein Albumin Lipase Procedures Date of Service Date of Service: 05/25/22 Progress Note: A&P Assessment and plan (1) Pancreatitis: Status: Acute Assessment and Plan: Imp: Remains symptomatic but clinically stable and without any worrisome clinical findings nor lab findings to indicate a poor prognosis. Etiology of this flareup is not entirely clear given the almost normal TG's on admission and no other obvious causes based on her previous w/u and current testing, including the MRI/MRCP. Rec: Continue current measures, F/U labs, and proceed slowly based on patient 's clinical response. I reviewed with the patient that I would like to arrange for an outpatient evaluation at [facility] once she is discharged to get their input as to any other investigations or treatment options there might be to try to prevent these continued episodes of her pancreatitis. She was comfortable with this plan. [facility] is covering over the weekend if questions or problems arise. Thanks Time Spent With Patient Time: Total time spent is greater than 50% in coordination of care (as documented) at patient's floor/unit and/or counseling patient: Quality Stroke Does the patient have a stroke diagnosis?: No VTE Prior VTE?: No VTE Risk Level:: Medical - moderate - high VTE Device Contraindication: Treatment Not Indicated VTE Drug Contraindication: N/A - Med Ordered
[2022-05-25 19:15] VITALS: BP 150/66; PULSE 72; RESP 18; TEMP 36.3; O2SAT 96
[2022-05-25 19:42] LABS: Glucose, Whole Blood 181 mg/dL (60-115)
[2022-05-25] MEDS: Gabapentin 300 MG CAPSULE 900 MG PO (20:30)
[2022-05-25 23:37] VITALS: BP 159/71; PULSE 66; RESP 18; TEMP 36.8; O2SAT 96
[2022-05-26] MEDS: HYDROmorphone HCl 1 MG/ML SYRINGE 0.5 MG IVPUSH ×6 (00:33→23:57)
[2022-05-26] MEDS: Enoxaparin Sodium 40 MG/0.4 ML SYRINGE SUBCUT (03:03)
[2022-05-26 05:56] LABS: MANUAL DIFF FLAG NO
[2022-05-26 05:59] LABS: Basophils Absolute Auto 0.1 X10*3/uL (0.0-0.2); Basophils Percent Auto 0.9 % (0-2); Eosinophils Absolute Auto 0.3 X10*3/uL (0.0-0.4); Eosinophils Percent Auto 4.6 % (0-4); Hematocrit 34.5 % (37.0-47.0); Imm Gran Abs Auto 0.02 X10*3/uL (0.00-0.03); Imm Gran Pct Auto 0.3 % (0.0-0.4); Lymphocytes Absolute Auto 1.6 X10*3/uL (1.2-4.9); Lymphocytes Percent Auto 23.3 % (20-40); Mean Corpuscular HGB Conc 31.9 g/dl (31.0-35.0); Mean Corpuscular Hemoglobin 28.2 pg (27.0-33.0); Mean Corpuscular Volume 88.5 fL (80.0-98.0); Mean Platelet Volume 10.7 fL (9.4-12.3); Monocytes Absolute Auto 0.3 X10*3/uL (0.1-1.2); Monocytes Percent Auto 5.1 % (2-11); Neutrophils Absolute Auto 4.4 x10*3/uL (2.0-8.3); Neutrophils Percent Auto 65.8 % (45-73); Platelet Count 270 X10*3/uL (160-400); Red Cell Distribution Width 13.2 % (11.0-16.0); White Blood Count 6.7 X10*3/uL (4.8-10.8)
[2022-05-26 06:19] LABS: Anion Gap 13 (12-20); Blood Urea Nitrogen 9 mg/dL (9-16); Calcium 8.3 mg/dL (8.4-10.2); Carbon Dioxide 23 mmol/L (22-29); Chloride 105 mmol/L (96-108); Creatinine Clr Calc Pharmacy 84.7; Estimated Glomerular Filt Rate > 60; Glucose Random 145 mg/dL (60-115); Lipase 136 U/L (8-78); Potassium 3.4 mmol/L (3.3-5.1); Sodium 138 mmol/L (135-145)
[2022-05-26 07:19] VITALS: BP 182/74; PULSE 66; RESP 18; TEMP 37.2; O2SAT 98
[2022-05-26 07:31] LABS: Glucose, Whole Blood 137 mg/dL (60-115)
[2022-05-26] MEDS: Omeprazole 20 MG CAPSULE.DR PO (09:06)
[2022-05-26] MEDS: amLODIPine Besylate 10 MG TABLET PO (09:07)
[2022-05-26] MEDS: Fenofibrate 160 MG TABLET PO (09:07)
[2022-05-26] MEDS: Metoprolol Tartrate 100 MG TABLET PO ×2 (09:07→20:36)
[2022-05-26] MEDS: Atorvastatin Calcium 40 MG TABLET PO (09:07)
[2022-05-26] MEDS: Enalapril Maleate 10 MG TABLET 20 MG PO ×2 (09:07→20:36)
[2022-05-26] MEDS: Insulin Glargine,Hum.rec.anlog 100 UNIT/ML 10 ML VIAL 15 UNIT SUBCUT (09:07)
--- NOTE | 2022-05-26 11:10 | P.PNIM_ITS ---
Subjective Subjective Date of Service: 05/26/22 Interval History: seen and examined this morning follow up for pancreatitis still with abdominal pain and nausea only taking small amounts of liquid Review of Systems Review of Systems: Yes all other systems are reviewed and are negative Constitutional Constitutional: Denies chills and Denies fever(s) ENT Ears, Nose, Mouth, and Throat: Denies dizziness Cardiovascular Cardiovascular: Denies chest pain, Denies palpitations and Denies dyspnea Respiratory Respiratory: Denies cough and Denies dyspnea Gastrointestinal Gastrointestinal: Reports abdominal pain, Reports nausea and Denies vomiting Neurologic Neurologic: Denies dizziness Endocrine Endocrine: Denies palpitations Physical Exam Vital Signs: Vital Signs: Last Vital Signs Temp 98.9 F 05/26/22 07:19 Pulse 66 05/26/22 07:19 Resp 18 05/26/22 07:19 BP 182/74 H 05/26/22 07:19 Pulse Ox 98 05/26/22 07:19 O2 Del Method 05/26/22 07:19 O2 Flow Rate 1 05/24/22 09:12 BMI result Body Mass Index 36.8 Appearing in no acute distress lung sounds are clear to auscultation heart regular rate rhythm, clear S1, S2 positive bowel sounds, abd tenderness neuro patient is alert x3, no focal deficits Objective Data Active Medications Acetaminophen (Acetaminophen 325 Mg Tablet) 650 mg PO Q6H PRN PRN Reason: Pain, Mild (Pain Scale 1-3) Amlodipine Besylate (Amlodipine Besylate 10 Mg Tablet) 10 mg PO DAILY [facility]; Protocol Last Admin: 05/26/22 09:07 Dose: 10 mg Documented By: SCOTT Atorvastatin Calcium (Atorvastatin Calcium 40 Mg Tablet) 40 mg PO DAILY [facility] Last Admin: 05/26/22 09:07 Dose: 40 mg Documented By: SCOTT Dextrose (Dextrose 50 % 25 Gm/50 Ml Syringe) 25 gm IVPUSH Q15M PRN; Protocol PRN Reason: per Hypoglycemia Standing Ord. Enalapril Maleate (Enalapril Maleate 10 Mg Tablet) 20 mg PO BID [facility]; Protocol Last Admin: 05/26/22 09:07 Dose: 20 mg Documented By: SCOTT Enoxaparin Sodium (Enoxaparin Sodium 40 Mg/0.4 Ml Syringe) 40 mg SUBCUT Q24H [facility] Last Admin: 05/26/22 03:03 Dose: 40 mg Documented By: ANTHONY Fenofibrate (Fenofibrate 160 Mg Tablet) 160 mg PO DAILY [facility] Last Admin: 05/26/22 09:07 Dose: 160 mg Documented By: SCOTT Gabapentin (Gabapentin 300 Mg Capsule) 900 mg PO BEDTIME [facility] Last Admin: 05/25/22 20:30 Dose: 900 mg Documented By: ANTHONY Glucose (Glucose Gel 15 Gm Gel..Gram.) 15 gm PO Q15M PRN; Protocol PRN Reason: per Hypoglycemia Standing Ord. Hydromorphone HCl (Hydromorphone Hcl 1 Mg/Ml Syringe) 0.5 mg IVPUSH Q4H PRN; Protocol PRN Reason: Pain, Severe (Pain Scale 7-10) Last Admin: 05/26/22 09:35 Dose: 0.5 mg Documented By: SCOTT Insulin Glargine (Insulin Glargine,Hum.Rec.Anlog 100 Unit/Ml 10 Ml Vial) 15 unit SUBCUT DAILY [facility] Last Admin: 05/26/22 09:07 Dose: 15 unit Documented By: SCOTT Insulin Human Lispro (Insulin Lispro 100 Unit/Ml 3 Ml Vial) 0 unit SUBCUT QIDACHS [facility]; Protocol Last Admin: 05/26/22 07:43 Dose: Not Given Documented By: SCOTT Non-Admin Reason: No Insulin Coverage Melatonin (Melatonin 3 Mg Tablet) 6 mg PO BEDTIME PRN PRN Reason: Insomnia Last Admin: 05/24/22 21:41 Dose: 6 mg Documented By: ZEINAB Metoprolol Tartrate (Metoprolol Tartrate 100 Mg Tablet) 100 mg PO BID [facility]; Protocol Last Admin: 05/26/22 09:07 Dose: 100 mg Documented By: SCOTT Omeprazole (Omeprazole 20 Mg Capsule.Dr) 20 mg PO DAILY [facility] Last Admin: 05/26/22 09:06 Dose: 20 mg Documented By: SCOTT Ondansetron HCl (Ondansetron Hcl 4 Mg/2 Ml Vial) 4 mg IVPUSH Q8H PRN PRN Reason: Nausea and Vomiting Last Admin: 05/25/22 02:03 Dose: 4 mg Documented By: ZEINAB Oxycodone HCl (Oxycodone Hcl Immed Release 5 Mg Tablet) 10 mg PO QID PRN PRN Reason: Pain, Moderate (Pain Scale 4-6 Last Admin: 05/25/22 09:57 Dose: 10 mg Documented By: ANTHONY [place] (Sennosides 8.6 Mg Tablet) 17.2 mg PO BEDTIME PRN PRN Reason: Constipation Sodium Chloride (0.9 % Sodium Chloride Flush 3 Ml Syringe) 3 ml IVFLUSH QSHIFT ALYSSA Last Admin: 05/26/22 09:08 Dose: Not Given Documented By: SCOTT Non-Admin Reason: IV Running Labs CBC & Chem 7: 05/26/22 05:46 05/26/22 05:46 Labs: Laboratory Results - last 24 hr 05/25/22 05/25/22 05/25/22 11:03 15:35 19:21 MCV MCH MCHC RDW Plt Count MPV Immature Gran % (Auto) Neut % (Auto) Lymph % (Auto) [place] % (Auto) Eos % (Auto) Baso % (Auto) Lymph # (Auto) [place] # (Auto) Eos # (Auto) Baso # (Auto) Abs Immat Gran (auto) Absolute Neuts (auto) Absolute Nucleated RBC Nucleated RBC % (auto) Anion Gap Estim Creat Clear Calc Estimated GFR POC Glucose 214 H 150 H 181 H Random Glucose Calcium Lipase 05/26/22 05/26/22 05/26/22 05:46 05:46 07:16 MCV 88.5 MCH 28.2 MCHC 31.9 RDW 13.2 Plt Count 270 MPV 10.7 Immature Gran % (Auto) 0.3 Neut % (Auto) 65.8 Lymph % (Auto) 23.3 [place] % (Auto) 5.1 Eos % (Auto) 4.6 H Baso % (Auto) 0.9 Lymph # (Auto) 1.6 [place] # (Auto) 0.3 Eos # (Auto) 0.3 Baso # (Auto) 0.1 Abs Immat Gran (auto) 0.02 Absolute Neuts (auto) 4.4 Absolute Nucleated RBC 0.000 Nucleated RBC % (auto) 0.0 Anion Gap 13 Estim Creat Clear Calc 84.7 Estimated GFR > 60 POC Glucose 137 H Random Glucose 145 H Calcium 8.3 L Lipase 136 H Assessment and Plan (1) Pancreatitis: Status: Acute Plan 67-year-old female with a past medical history of hypertension, hyperlipidemia, diabetes, CAD, history of pancreatic divisum, recurrent pancreatitis, asthma, vitamin-D deficiency; history of hypertriglyceridemia; presented to the hospital today with a chief complaint of abdominal pain. Noted to have acute pancreatitis. Admitted for further management. Acute pancreatitis r/t pancreas divisum; TG 325, no etoh, gallstone Patient has recurrent bouts of pancreatitis secondary to pancreatic divisum. follows with Dr. Corona Lipase elevated at 922, trending down; LFTs wnl MRCP with no evidence of biliary disease Seen by GI, continue current management Pain control IV fluids advanced to clear liquid Hypertension with elevated blood pressure continue Norvasc, metoprolol, enalapril lasix on hold Hyperlipidemia continue statin, Lofibra History of diabetes convert to Lantus and decrease dose until tolerating diet Insulin sliding scale. History of CAD Continue home statin/metoprolol. chronic pain continue home pain medication DVT prophylaxis: Lovenox Code status: Full code attending - Dr. Bowling Requires ongoing inpatient hospitalization for management of acute pancreatitis including IV pain control, fluids, GI evaluation Quality Stroke Does the patient have a stroke diagnosis?: No VTE Prior VTE?: No VTE Risk Level:: Medical - moderate - high VTE Device Contraindication: Treatment Not Indicated VTE Drug Contraindication: N/A - Med Ordered
[2022-05-26 11:36] LABS: Glucose, Whole Blood 151 mg/dL (60-115)
[2022-05-26] MEDS: oxyCODONE HCl Immed Release 5 MG TABLET 10 MG PO (12:20)
[2022-05-26] MEDS: Insulin Lispro 100 UNIT/ML 3 ML VIAL SUBCUT (12:20)
[2022-05-26] MEDS: 0.9 % Sodium Chloride 1,000 ML 125 ML IVCONT ×2 (12:50→20:08)
[2022-05-26 15:36] LABS: Glucose, Whole Blood 132 mg/dL (60-115)
[2022-05-26 15:54] VITALS: BP 172/72; RESP 20; TEMP 36.7; O2SAT 97
[2022-05-26] MEDS: ondansetron HCL 4 MG/2 ML VIAL IVPUSH (19:25)
[2022-05-26] MEDS: Gabapentin 300 MG CAPSULE 900 MG PO (20:35)
[2022-05-26 21:16] LABS: Glucose, Whole Blood 137 mg/dL (60-115)
[2022-05-27] VITALS: BP 168/66; PULSE 67; RESP 20; TEMP 36.8; O2SAT 99
[2022-05-27] MEDS: Enoxaparin Sodium 40 MG/0.4 ML SYRINGE SUBCUT (02:07)
[2022-05-27] MEDS: 0.9 % Sodium Chloride 1,000 ML 125 ML IVCONT ×3 (03:30→19:49)
[2022-05-27] MEDS: HYDROmorphone HCl 1 MG/ML SYRINGE 0.5 MG IVPUSH ×4 (04:38→19:46)
[2022-05-27 06:41] LABS: Anion Gap 15 (12-20); Blood Urea Nitrogen 6 mg/dL (9-16); Calcium 7.9 mg/dL (8.4-10.2); Carbon Dioxide 17 mmol/L (22-29); Chloride 109 mmol/L (96-108); Estimated Glomerular Filt Rate > 60; Glucose Random 144 mg/dL (60-115); Potassium 3.4 mmol/L (3.3-5.1); Sodium 138 mmol/L (135-145)
[2022-05-27 07:18] VITALS: BP 162/72; PULSE 73; RESP 18; TEMP 36.9; O2SAT 98
[2022-05-27 07:41] LABS: Glucose, Whole Blood 145 mg/dL (60-115)
[2022-05-27] MEDS: Omeprazole 20 MG CAPSULE.DR PO (08:46)
[2022-05-27] MEDS: amLODIPine Besylate 10 MG TABLET PO (08:46)
[2022-05-27] MEDS: Atorvastatin Calcium 40 MG TABLET PO (08:46)
[2022-05-27] MEDS: Fenofibrate 160 MG TABLET PO (08:46)
[2022-05-27] MEDS: Enalapril Maleate 10 MG TABLET 20 MG PO ×2 (08:46→19:44)
[2022-05-27] MEDS: Metoprolol Tartrate 100 MG TABLET PO ×2 (08:46→19:46)
[2022-05-27] MEDS: Insulin Glargine,Hum.rec.anlog 100 UNIT/ML 10 ML VIAL 15 UNIT SUBCUT (08:47)
[2022-05-27 10:58] LABS: Glucose, Whole Blood 149 mg/dL (60-115)
[2022-05-27] MEDS: oxyCODONE HCl Immed Release 5 MG TABLET 10 MG PO (11:39)
--- NOTE | 2022-05-27 11:52 | P.PNIM_ITS ---
Subjective Subjective Date of Service: 05/27/22 Interval History: follow up for pancreatitis still with abdominal pain and nausea but slightly better only taking small amounts of liquid Review of Systems Review of Systems: Yes all other systems are reviewed and are negative Constitutional Constitutional: Denies chills and Denies fever(s) ENT Ears, Nose, Mouth, and Throat: Denies dizziness Cardiovascular Cardiovascular: Denies chest pain, Denies palpitations and Denies dyspnea Respiratory Respiratory: Denies cough and Denies dyspnea Gastrointestinal Gastrointestinal: Reports abdominal pain, Reports nausea and Denies vomiting Neurologic Neurologic: Denies dizziness Endocrine Endocrine: Denies palpitations Physical Exam Vital Signs: Vital Signs: Last Vital Signs Temp 98.4 F 05/27/22 07:18 Pulse 73 05/27/22 07:18 Resp 18 05/27/22 07:18 BP 162/72 H 05/27/22 07:18 Pulse Ox 98 05/27/22 07:18 O2 Del Method 05/27/22 07:18 O2 Flow Rate 1 05/24/22 09:12 BMI result Body Mass Index 36.8 Appearing in no acute distress lung sounds are clear to auscultation heart regular rate rhythm, clear S1, S2 positive bowel sounds, abdomen is soft, nontender neuro patient is alert x3, no focal deficits Objective Data Active Medications Acetaminophen (Acetaminophen 325 Mg Tablet) 650 mg PO Q6H PRN PRN Reason: Pain, Mild (Pain Scale 1-3) Amlodipine Besylate (Amlodipine Besylate 10 Mg Tablet) 10 mg PO DAILY [facility]; Protocol Last Admin: 05/27/22 08:46 Dose: 10 mg Documented By: SCOTT Atorvastatin Calcium (Atorvastatin Calcium 40 Mg Tablet) 40 mg PO DAILY [facility] Last Admin: 05/27/22 08:46 Dose: 40 mg Documented By: SCOTT Dextrose (Dextrose 50 % 25 Gm/50 Ml Syringe) 25 gm IVPUSH Q15M PRN; Protocol PRN Reason: per Hypoglycemia Standing Ord. Enalapril Maleate (Enalapril Maleate 10 Mg Tablet) 20 mg PO BID [facility]; Protocol Last Admin: 05/27/22 08:46 Dose: 20 mg Documented By: SCOTT Enoxaparin Sodium (Enoxaparin Sodium 40 Mg/0.4 Ml Syringe) 40 mg SUBCUT Q24H [facility] Last Admin: 05/27/22 02:07 Dose: 40 mg Documented By: ANTHONY Fenofibrate (Fenofibrate 160 Mg Tablet) 160 mg PO DAILY [facility] Last Admin: 05/27/22 08:46 Dose: 160 mg Documented By: SCOTT Gabapentin (Gabapentin 300 Mg Capsule) 900 mg PO BEDTIME [facility] Last Admin: 05/26/22 20:35 Dose: 900 mg Documented By: ANTHONY Glucose (Glucose Gel 15 Gm Gel..Gram.) 15 gm PO Q15M PRN; Protocol PRN Reason: per Hypoglycemia Standing Ord. Hydromorphone HCl (Hydromorphone Hcl 1 Mg/Ml Syringe) 0.5 mg IVPUSH Q4H PRN; Protocol PRN Reason: Pain, Severe (Pain Scale 7-10) Last Admin: 05/27/22 08:46 Dose: 0.5 mg Documented By: SCOTT Sodium Chloride (Ns) 1,000 mls @ 125 mls/hr IVCONT .Q8H [facility] Last Admin: 05/27/22 11:34 Dose: 125 mls/hr Documented By: SCOTT Insulin Glargine (Insulin Glargine,Hum.Rec.Anlog 100 Unit/Ml 10 Ml Vial) 15 unit SUBCUT DAILY [facility] Last Admin: 05/27/22 08:47 Dose: 15 unit Documented By: SCOTT Insulin Human Lispro (Insulin Lispro 100 Unit/Ml 3 Ml Vial) 0 unit SUBCUT QIDACHS [facility]; Protocol Last Admin: 05/27/22 11:16 Dose: Not Given Documented By: SCOTT Non-Admin Reason: No Insulin Coverage Melatonin (Melatonin 3 Mg Tablet) 6 mg PO BEDTIME PRN PRN Reason: Insomnia Last Admin: 05/24/22 21:41 Dose: 6 mg Documented By: ZEINAB Metoprolol Tartrate (Metoprolol Tartrate 100 Mg Tablet) 100 mg PO BID [facility]; Protocol Last Admin: 05/27/22 08:46 Dose: 100 mg Documented By: SCOTT Omeprazole (Omeprazole 20 Mg Capsule.) 20 mg PO DAILY [facility] Last Admin: 05/27/22 08:46 Dose: 20 mg Documented By: SCOTT Ondansetron HCl (Ondansetron Hcl 4 Mg/2 Ml Vial) 4 mg IVPUSH Q8H PRN PRN Reason: Nausea and Vomiting Last Admin: 05/26/22 19:25 Dose: 4 mg Documented By: ANTHONY Oxycodone HCl (Oxycodone Hcl Immed Release 5 Mg Tablet) 10 mg PO QID PRN PRN Reason: Pain, Moderate (Pain Scale 4-6 Last Admin: 05/27/22 11:39 Dose: 10 mg Documented By: SCOTT Senna (Sennosides 8.6 Mg Tablet) 17.2 mg PO BEDTIME PRN PRN Reason: Constipation Sodium Chloride (0.9 % Sodium Chloride Flush 3 Ml Syringe) 3 ml IVFLUSH QSHIFT ALYSSA Last Admin: 05/27/22 07:53 Dose: Not Given Documented By: SCOTT Non-Admin Reason: IV Running Labs CBC & Chem 7: 05/26/22 05:46 05/27/22 06:15 Labs: Laboratory Results - last 24 hr 05/26/22 05/26/22 05/27/22 15:28 20:40 06:15 Anion Gap 15 Estim Creat Clear Calc 102.0 Estimated GFR > 60 POC Glucose 132 H 137 H Random Glucose 144 H Calcium 7.9 L 05/27/22 05/27/22 07:14 10:42 Anion Gap Estim Creat Clear Calc Estimated GFR POC Glucose 145 H 149 H Random Glucose Calcium Assessment and Plan (1) Pancreatitis: Status: Acute Plan 67-year-old female with a past medical history of hypertension, hyperlipidemia, diabetes, CAD, history of pancreatic divisum, recurrent pancreatitis, asthma, vi tamin-D deficiency; history of hypertriglyceridemia; presented to the hospital today with a chief complaint of abdominal pain. Noted to have acute pancreatitis. Admitted for further management. Acute pancreatitis r/t pancreas divisum; TG 325, no etoh, gallstone Patient has recurrent bouts of pancreatitis secondary to pancreatic divisum. follows with Dr. Corona Lipase elevated at 922, trending down; LFTs wnl MRCP with no evidence of biliary disease Seen by GI, continue current management Pain control IV fluids Clear liquid diet and advance as tolerated Hypertension with elevated blood pressure continue Norvasc, metoprolol, enalapril lasix on hold Hyperlipidemia continue statin, Lofibra History of diabetes convert to Lantus and decrease dose until tolerating diet Insulin sliding scale. History of CAD Continue home statin/metoprolol. chronic pain continue home pain medication DVT prophylaxis: Lovenox Code status: Full code attending - Dr. Bowling Requires ongoing inpatient hospitalization for management of acute pancreatitis including IV pain control, fluids, GI evaluation Quality Stroke Does the patient have a stroke diagnosis?: No VTE Prior VTE?: No VTE Risk Level:: Medical - moderate - high VTE Device Contraindication: Treatment Not Indicated VTE Drug Contraindication: N/A - Med Ordered
--- NOTE | 2022-05-27 12:24 | MHC.CM.PN ---
PATIENT STILL WITH PAIN AND NAUSEA. NO PLAN FOR DISCHARGE TODAY
[2022-05-27 16:07] VITALS: BP 140/70; PULSE 68; RESP 16; TEMP 36.4; O2SAT 97
[2022-05-27 16:23] LABS: Glucose, Whole Blood 142 mg/dL (60-115)
[2022-05-27] MEDS: Gabapentin 300 MG CAPSULE 900 MG PO (19:45)
[2022-05-27 19:58] VITALS: BP 170/82; PULSE 71; RESP 17; TEMP 36.9; O2SAT 98
[2022-05-27 20:18] LABS: Glucose, Whole Blood 136 mg/dL (60-115)
[2022-05-28] VITALS: BP 178/85; PULSE 71; RESP 16; TEMP 36.2; O2SAT 97
[2022-05-28] MEDS: oxyCODONE HCl Immed Release 5 MG TABLET 10 MG PO ×3 (00:17→20:07)
[2022-05-28] MEDS: HYDROmorphone HCl 1 MG/ML SYRINGE 0.5 MG IVPUSH ×5 (02:24→18:42)
[2022-05-28] MEDS: Enoxaparin Sodium 40 MG/0.4 ML SYRINGE SUBCUT (02:24)
[2022-05-28] MEDS: 0.9 % Sodium Chloride 1,000 ML 125 ML IVCONT ×3 (03:35→19:59)
[2022-05-28] MEDS: Melatonin 3 MG TABLET 6 MG PO (03:39)
[2022-05-28 07:38] LABS: Glucose, Whole Blood 98 mg/dL (60-115)
[2022-05-28 07:49] VITALS: BP 176/72; PULSE 66; RESP 14; TEMP 36.3; O2SAT 98
[2022-05-28 07:56] LABS: Anion Gap 17 (12-20); Blood Urea Nitrogen 4 mg/dL (9-16); Calcium 8.4 mg/dL (8.4-10.2); Carbon Dioxide 17 mmol/L (22-29); Chloride 109 mmol/L (96-108); Creatinine Clr Calc Pharmacy 103.8; Estimated Glomerular Filt Rate > 60; Glucose Random 103 mg/dL (60-115); Lipase 83 U/L (8-78); Potassium 3.2 mmol/L (3.3-5.1); Sodium 140 mmol/L (135-145)
[2022-05-28] MEDS: amLODIPine Besylate 10 MG TABLET PO (08:23)
[2022-05-28] MEDS: Atorvastatin Calcium 40 MG TABLET PO (08:23)
[2022-05-28] MEDS: Metoprolol Tartrate 100 MG TABLET PO ×2 (08:23→19:57)
[2022-05-28] MEDS: Omeprazole 20 MG CAPSULE.DR PO (08:23)
[2022-05-28] MEDS: Insulin Glargine,Hum.rec.anlog 100 UNIT/ML 10 ML VIAL 15 UNIT SUBCUT (08:24)
[2022-05-28] MEDS: Potassium Chloride Packet 20 MEQ PACKET 40 MEQ PO (08:24)
[2022-05-28] MEDS: Fenofibrate 160 MG TABLET PO (08:24)
[2022-05-28] MEDS: Enalapril Maleate 10 MG TABLET 20 MG PO ×2 (08:24→19:56)
--- NOTE | 2022-05-28 09:54 | HO.PM.IMPN ---
Subjective Subjective Date of Service: 05/28/22 Interval History: follow up for pancreatitis still with abdominal pain and nausea but slightly better taking small amounts of liquid Review of Systems Review of Systems: Yes all other systems are reviewed and are negative Constitutional Constitutional: Denies chills and Denies fever(s) ENT Ears, Nose, Mouth, and Throat: Denies dizziness Cardiovascular Cardiovascular: Denies chest pain, Denies palpitations and Denies dyspnea Respiratory Respiratory: Denies cough and Denies dyspnea Gastrointestinal Gastrointestinal: Reports abdominal pain, Reports nausea and Denies vomiting Neurologic Neurologic: Denies dizziness Endocrine Endocrine: Denies palpitations Physical Exam Vital Signs: Vital Signs: Last Vital Signs Temp 97.4 F 05/28/22 07:49 Pulse 66 05/28/22 07:49 Resp 14 05/28/22 07:49 BP 176/72 H 05/28/22 07:49 Pulse Ox 98 05/28/22 07:49 O2 Del Method 05/28/22 07:49 O2 Flow Rate 1 05/24/22 09:12 BMI result Body Mass Index 36.8 Appearing in no acute distress lung sounds are clear to auscultation heart regular rate rhythm, clear S1, S2 positive bowel sounds, abdomen is soft, nontender neuro patient is alert x3, no focal deficits Objective Data Active Medications Acetaminophen (Acetaminophen 325 Mg Tablet) 650 mg PO Q6H PRN PRN Reason: Pain, Mild (Pain Scale 1-3) Amlodipine Besylate (Amlodipine Besylate 10 Mg Tablet) 10 mg PO DAILY [facility]; Protocol Last Admin: 05/28/22 08:23 Dose: 10 mg Documented By: DANGELO Atorvastatin Calcium (Atorvastatin Calcium 40 Mg Tablet) 40 mg PO DAILY [facility] Last Admin: 05/28/22 08:23 Dose: 40 mg Documented By: DANGELO Dextrose (Dextrose 50 % 25 Gm/50 Ml Syringe) 25 gm IVPUSH Q15M PRN; Protocol PRN Reason: per Hypoglycemia Standing Ord. Enalapril Maleate (Enalapril Maleate 10 Mg Tablet) 20 mg PO BID [facility]; Protocol Last Admin: 05/28/22 08:24 Dose: 20 mg Documented By: DANGELO Enoxaparin Sodium (Enoxaparin Sodium 40 Mg/0.4 Ml Syringe) 40 mg SUBCUT Q24H [facility] Last Admin: 05/28/22 02:24 Dose: 40 mg Documented By: DEMETRIUS Fenofibrate (Fenofibrate 160 Mg Tablet) 160 mg PO DAILY [facility] Last Admin: 05/28/22 08:24 Dose: 160 mg Documented By: DANGELO Gabapentin (Gabapentin 300 Mg Capsule) 900 mg PO BEDTIME [facility] Last Admin: 05/27/22 19:45 Dose: 900 mg Documented By: DEMETRIUS Glucose (Glucose Gel 15 Gm Gel..Gram.) 15 gm PO Q15M PRN; Protocol PRN Reason: per Hypoglycemia Standing Ord. Hydromorphone HCl (Hydromorphone Hcl 1 Mg/Ml Syringe) 0.5 mg IVPUSH Q4H PRN; Protocol PRN Reason: Pain, Severe (Pain Scale 7-10) Last Admin: 05/28/22 06:16 Dose: 0.5 mg Documented By: DEMETRIUS Sodium Chloride (Ns) 1,000 mls @ 125 mls/hr IVCONT .Q8H [facility] Last Admin: 05/28/22 03:35 Dose: 125 mls/hr Documented By: DEMETRIUS Insulin Glargine (Insulin Glargine,Hum.Rec.Anlog 100 Unit/Ml 10 Ml Vial) 15 unit SUBCUT DAILY [facility] Last Admin: 05/28/22 08:24 Dose: 15 unit Documented By: DANGELO Insulin Human Lispro (Insulin Lispro 100 Unit/Ml 3 Ml Vial) 0 unit SUBCUT QIDACHS [facility]; Protocol Last Admin: 05/28/22 07:53 Dose: Not Given Documented By: DANGELO Non-Admin Reason: No Insulin Coverage Melatonin (Melatonin 3 Mg Tablet) 6 mg PO BEDTIME PRN PRN Reason: Insomnia Last Admin: 05/28/22 03:39 Dose: 6 mg Documented By: DEMETRIUS Metoprolol Tartrate (Metoprolol Tartrate 100 Mg Tablet) 100 mg PO BID [facility]; Protocol Last Admin: 05/28/22 08:23 Dose: 100 mg Documented By: DANGELO Omeprazole (Omeprazole 20 Mg Capsule.) 20 mg PO DAILY [facility] Last Admin: 05/28/22 08:23 Dose: 20 mg Documented By: DANGELO Ondansetron HCl (Ondansetron Hcl 4 Mg/2 Ml Vial) 4 mg IVPUSH Q8H PRN PRN Reason: Nausea and Vomiting Last Admin: 05/26/22 19:25 Dose: 4 mg Documented By: ODRISM Oxycodone HCl (Oxycodone Hcl Immed Release 5 Mg Tablet) 10 mg PO QID PRN PRN Reason: Pain, Moderate (Pain Scale 4-6 Last Admin: 05/28/22 08:24 Dose: 10 mg Documented By: DANGELO Senna (Sennosides 8.6 Mg Tablet) 17.2 mg PO BEDTIME PRN PRN Reason: Constipation Sodium Chloride (0.9 % Sodium Chloride Flush 3 Ml Syringe) 3 ml IVFLUSH QSHIFT ALYSSA Last Admin: 05/28/22 08:24 Dose: Not Given Documented By: DANGELO Non-Admin Reason: IV Running Labs CBC & Chem 7: 05/26/22 05:46 05/28/22 05:50 Labs: Laboratory Results - last 24 hr 05/27/22 05/27/22 05/27/22 10:42 16:10 20:01 Anion Gap Estim Creat Clear Calc Estimated GFR POC Glucose 149 H 142 H 136 H Random Glucose Calcium Lipase 05/28/22 05/28/22 05:50 07:15 Anion Gap 17 Estim Creat Clear Calc 103.8 Estimated GFR > 60 POC Glucose 98 Random Glucose 103 Calcium 8.4 D Lipase 83 H Assessment and Plan (1) Pancreatitis: Status: Acute Plan 67-year-old female with a past medical history of hypertension, hyperlipidemia, diabetes, CAD, history of pancreatic divisum, recurrent pancreatitis, asthma, vitamin-D deficiency; history of hypertriglyceridemia; presented to the hospital today with a chief complaint of abdominal pain. Noted to have acute pancreatitis. Admitted for further management. Acute pancreatitis r/t pancreas divisum; TG 325, no etoh, gallstone Patient has recurrent bouts of pancreatitis secondary to pancreatic divisum. follows with Dr. Corona Lipase elevated at 922, trending down; LFTs wnl MRCP with no evidence of biliary disease Seen by GI, continue current management Pain control IV fluids Advance to full liquid diet Hypertension with elevated blood pressure continue Norvasc, metoprolol, enalapril lasix on hold Hyperlipidemia continue statin, Lofibra History of diabetes convert to Lantus and decrease dose until tolerating diet Insulin sliding scale. History of CAD Continue home statin/metoprolol. chronic pain continue home pain medication DVT prophylaxis: Lovenox Code status: Full code attending - Dr. Varela Requires ongoing inpatient hospitalization for management of acute pancreatitis including IV pain control, fluids, GI evaluation Quality Stroke Does the patient have a stroke diagnosis?: No VTE Prior VTE?: No VTE Risk Level:: Medical - moderate - high VTE Device Contraindication: Treatment Not Indicated VTE Drug Contraindication: N/A - Med Ordered
[2022-05-28 11:24] LABS: Glucose, Whole Blood 108 mg/dL (60-115)
[2022-05-28 15:23] VITALS: BP 174/90; PULSE 72; RESP 15; TEMP 36.9; O2SAT 99
[2022-05-28 16:11] LABS: Glucose, Whole Blood 111 mg/dL (60-115)
--- NOTE | 2022-05-28 17:16 | PM.GIPN ---
Subjective Subjective Date of Service: 05/28/22 Interval History: Still having pain and some nausea, but better than last week. Passing flatus and some loose stools. Afebrile. Not particularly hungry. Critical Care Time (minutes): 0 Physical Exam Vital Signs: Vital Signs: Last Vital Signs Temp 98.4 F 05/28/22 15:23 Pulse 72 05/28/22 15:23 Resp 15 05/28/22 15:23 BP 174/90 H 05/28/22 15:23 Pulse Ox 99 05/28/22 15:23 O2 Del Method 05/28/22 07:49 O2 Flow Rate 1 05/24/22 09:12 BMI result Body Mass Index 36.8 Const: General: cooperative, healthy appearing, comfortable, no acute distress, well developed, alert and awake Eyes: Sclerae: sclerae normal GI: Other: Softer and less distended. Still with diffuse tenderness. No maaa. Objective Data Labs CBC & Chem 7: 05/26/22 05:46 05/28/22 05:50 Labs: Laboratory Results - last 24 hr 05/27/22 05/28/22 05/28/22 20:01 05:50 07:15 Sodium 140 Potassium 3.2 L Chloride 109 H Carbon Dioxide 17 L Anion Gap 17 BUN 4 L Creatinine 0.58 Estim Creat Clear Calc 103.8 Estimated GFR > 60 POC Glucose 136 H 98 Random Glucose 103 Calcium 8.4 D Lipase 83 H 05/28/22 05/28/22 11:12 16:05 Sodium Potassium Chloride Carbon Dioxide Anion Gap BUN Creatinine Estim Creat Clear Calc Estimated GFR POC Glucose 108 111 Random Glucose Calcium Lipase Procedures Date of Service Date of Service: 05/28/22 Progress Note: A&P Assessment and plan (1) Pancreatitis: Status: Acute Assessment and Plan: Imp: She seems to be improved as compared to last week. This is her usual course in the hospital. Her lipase is just about normal today. She does tend to have some degree of chronic abdominal pain at home. Rec: Will try to advance diet for the AM, 05/29, and observe. Hopefully she will be able to tolerate some po's to allow for discharge. I did review the idea of referral to [facility] for further evaluation as an outpatient. Patient seems comfortable with this plan. Thanks Time Spent With Patient Time: Total time spent is greater than 50% in coordination of care (as documented) at patient's floor/unit and/or counseling patient: Quality Stroke Does the patient have a stroke diagnosis?: No VTE Prior VTE?: No VTE Risk Level:: Medical - moderate - high VTE Device Contraindication: Treatment Not Indicated VTE Drug Contraindication: N/A - Med Ordered
[2022-05-28 19:39] LABS: Glucose, Whole Blood 90 mg/dL (60-115)
[2022-05-28] MEDS: Gabapentin 300 MG CAPSULE 900 MG PO (19:56)
[2022-05-28 23:30] VITALS: BP 187/86; PULSE 88; RESP 18; TEMP 36.2; O2SAT 98
[2022-05-29] MEDS: HYDROmorphone HCl 1 MG/ML SYRINGE 0.5 MG IVPUSH (01:51)
[2022-05-29] MEDS: Enoxaparin Sodium 40 MG/0.4 ML SYRINGE SUBCUT (01:52)
[2022-05-29] MEDS: 0.9 % Sodium Chloride 1,000 ML 125 ML IVCONT ×2 (01:56→08:28)
[2022-05-29] MEDS: ondansetron HCL 4 MG/2 ML VIAL IVPUSH (02:01)
[2022-05-29 07:20] LABS: Glucose, Whole Blood 83 mg/dL (60-115)
[2022-05-29] MEDS: oxyCODONE HCl Immed Release 5 MG TABLET 10 MG PO (07:20)
[2022-05-29 07:26] LABS: Anion Gap 18 (12-20); Blood Urea Nitrogen 5 mg/dL (9-16); Calcium 8.4 mg/dL (8.4-10.2); Carbon Dioxide 17 mmol/L (22-29); Chloride 109 mmol/L (96-108); Creatinine Clr Calc Pharmacy 109.4; Estimated Glomerular Filt Rate > 60; Glucose Random 87 mg/dL (60-115); Lipase 42 U/L (8-78); Potassium 3.7 mmol/L (3.3-5.1); Sodium 140 mmol/L (135-145)
[2022-05-29 07:46] VITALS: BP 171/72; PULSE 64; RESP 16; TEMP 36.5; O2SAT 96
[2022-05-29] MEDS: Atorvastatin Calcium 40 MG TABLET PO (08:26)
[2022-05-29] MEDS: Metoprolol Tartrate 100 MG TABLET PO (08:26)
[2022-05-29] MEDS: amLODIPine Besylate 10 MG TABLET PO (08:26)
[2022-05-29] MEDS: Enalapril Maleate 10 MG TABLET 20 MG PO (08:26)
[2022-05-29] MEDS: Omeprazole 20 MG CAPSULE.DR PO (08:26)
[2022-05-29] MEDS: Fenofibrate 160 MG TABLET PO (08:27)
[2022-05-29] MEDS: hydrALAZINE HCl 10 MG TABLET PO (08:27)
[2022-05-29] MEDS: Insulin Glargine,Hum.rec.anlog 100 UNIT/ML 10 ML VIAL 15 UNIT SUBCUT (08:27)
[2022-05-29 11:12] LABS: Glucose, Whole Blood 158 mg/dL (60-115)
--- NOTE | 2022-05-29 11:40 | P.DS_ITS ---
DS: Providers Provider Date of Service: 05/29/22 Date of admission: 05/24/22 02:42 Primary care physician: Armando Holloway MD Consults: 05/24/22 02:38 Consult to Gastroenterology Routine Consulting Provider: Valeriano Corona Reason for consultation: rec pancreatitis Attending physician on discharge: Henyr Varela Discharging clinician: Genny Sanchez DS: Diagnosis Discharge Diagnosis (1) Pancreatitis: Status: Acute DS: Summary Hospital Course Hospital Course: HP as per admitting provider 67-year-old female with a past medical history of hypertension, hyperlipidemia, diabetes, CAD, history of pancreatic divisum, recurrent pancreatitis, asthma, vitamin-D deficiency; history of hypertriglyceridemia; presented to the hospital today with a chief complaint of abdominal pain.?Patient reports that for the past 2 days she has been having abdominal pain, located in the epigastrium, 10/10 in intensity, associated nausea and vomiting; denies any blood in the vomitus.? Denies any fever chills cough or sputum production.?Patient mentioned that she had similar pain about a week ago-consistent with pancreatitis.? State home and symptomatic we improved.? But for the past 2 days she had pain similar to pancreatitis again.?As she was not able to tolerate the pain today she came to the ER for further evaluation.?Mentions that she intermittently gets pancreatitis and attributes to her prior history of pancreatic divisum.? Mentions she even had 1 time pseudocyst.? Also had prior history of tricuspid is and having lately controlled.?Denies any urinary symptoms.?Denies any chest pain palpitations lightheadedness or dizziness.?Review of all other systems is negative except mentioned above ER course: Per ER team patient noted to have epigastric tend erness, no guarding no rigidity; noted to have elevated lipase 900; consistent with acute pancreatitis.? Given pain medications and IV fluids.? Admitted to the hospital for further management . Acute pancreatitis r/t pancreas divisum; TG 325, no etoh, gallstone Patient has recurrent bouts of pancreatitis secondary to pancreatic divisum.? follows with Dr. Corona Lipase elevated at 922, trended down; LFTs wnl MRCP with no evidence of biliary disease Seen by GI, continue current management Treated with IV fluids and pain management Diet advanced to regular and patient tolerated well Hypertension with elevated blood pressure, trended down continue Norvasc, metoprolol, enalapril, lasix Hyperlipidemia continue statin, Lofibra History of diabetes continue home medications History of CAD Continue home statin/metoprolol.? chronic pain continue home pain medication Time Spent with Patient Time attestation: Total time spent providing and/or coordinating discharge services: Discharge coordination time: Greater than 30 minutes Quality: Safe Use of Opioids Does Pt have an Active Cancer Diagnosis on the Problem List?: No Quality: Stroke Does the patient have a stroke diagnosis?: No Physical Exam Vital Signs: Vital Signs: Last Vital Signs Temp 97.7 F 05/29/22 07:46 Pulse 64 05/29/22 07:46 Resp 16 05/29/22 07:46 BP 171/72 H 05/29/22 07:46 Pulse Ox 96 05/29/22 07:46 O2 Del Method 05/29/22 07:46 O2 Flow Rate 1 05/24/22 09:12 BMI result Body Mass Index 36.8 Appearing in no acute distress head is normocephalic atraumatic eyes pupils are PERRLA sclera is anicteric mouth throat mucous membranes are intact and moist neck is supple no lymphadenopathy, no JVD noted lung sounds are clear to auscultation heart regular rate rhythm, clear S1, S2 positive bowel sounds, abdomen is soft, nontender neuro patient is alert x3, no focal deficits DS: Data Data Completed and Pending Labs on day of discharge: Laboratory Results - last 24 hr 05/28/22 05/28/22 05/29/22 16:05 19:18 06:39 Sodium 140 Potassium 3.7 Chloride 109 H Carbon Dioxide 17 L Anion Gap 18 BUN 5 L Creatinine 0.55 Estim Creat Clear Calc 109.4 Estimated GFR > 60 POC Glucose 111 90 Random Glucose 87 Calcium 8.4 Lipase 42 05/29/22 05/29/22 07:11 11:01 Sodium Potassium Chloride Carbon Dioxide Anion Gap BUN Creatinine Estim Creat Clear Calc Estimated GFR POC Glucose 83 158 H Random Glucose Calcium Lipase Discharge Plan Discharge Anticipated Discharge Date/Time: 05/29/22 11:29 Patient Disposition: Home, Self-Care Discharge Diagnosis: Acute on chronic pancreatitis Referrals: Armando Holloway MD [Primary Care Provider] - 1 Week Discharge Medications: Continued furosemide 40 mg tablet 1 tab PO DAILY atorvastatin 40 mg tablet 1 tab PO DAILY metoprolol tartrate 100 mg tablet 1 tab PO BID enalapril maleate 20 mg tablet 1 tab PO BID amlodipine 10 mg tablet 1 tab PO DAILY lansoprazole 30 mg capsule,delayed release(DR/EC) 1 cap PO DAILY gabapentin 300 mg capsule 3 cap PO BEDTIME fenofibrate nanocrystallized 145 mg tablet 1 tab PO DAILY oxycodone 10 mg tablet 1 tab PO QID Levemir FlexTouch U-100 Insuln 100 unit/mL (3 mL) insulin pen 75 unit subcut DAILY insulin lispro 100 unit/mL Insulin Pen 1 sliding scale dose SUBCUT USEASDIRECTD Discharge Orders: Discharge Order (Routine); Ordered 05/29/22 Ordered By: Genny Sanchez Diet: Advance to usual diet Activity on Discharge: As tolerated Stand Alone Forms: Patient Portal Discharge page Care Plan Goals: Complete resolution of symptoms Health Concerns: Acute on chronic pancreatitis Plan of Treatment: Follow-up with primary care provider for monitoring of your blood pressure, continue all of your home medications Follow-up with electronic security specialist as needed Take all your medications as prescribed Advance diet as tolerated Assessment: See discharge summary
[2022-05-29] MEDS: Insulin Lispro 100 UNIT/ML 3 ML VIAL SUBCUT (11:42)
[2022-05-29 11:49] VITALS: BP 158/62
--- NOTE | 2022-05-29 12:44 | MHC.CM.PN ---
PATIENT IS DC HOME SELF CARE RN AWARE OF PLAN.
== END 2022-05-29 14:00 | disposition home or self-care (01) | DRG 439 ==
LOC: HO.ED 05-24 02:44 → HO.EDOVER 05-24 04:02 → HO.S3 05-24 08:07
PROVIDERS: Internal Medicine; Physician Assistant Medical; Admitting Provider Hospitalist; Emergency Provider Internal Medicine; PCP Internal Medicine; Visit Provider Nurse Practitioner Acute Care
DX: K85.90 Acute pancreatitis without necrosis or infection, unspecified (principal); Q45.3 Other congenital malformations of pancreas and pancreatic duct; K86.1 Other chronic pancreatitis; J45.909 Unspecified asthma, uncomplicated; I25.10 Atherosclerotic heart disease of native coronary artery without angina pectoris; I10 Essential (primary) hypertension; E78.1 Pure hyperglyceridemia; G89.29 Other chronic pain; Z20.822 Contact with and (suspected) exposure to COVID-19; Z86.16 Personal history of COVID-19; Z91.013 Allergy to seafood; Z91.040 Latex allergy status; Z91.041 Radiographic dye allergy status; Z88.0 Allergy status to penicillin; Z88.1 Allergy status to other antibiotic agents; Z88.5 Allergy status to narcotic agent; Z88.8 Allergy status to other drugs, medicaments and biological substances; Z79.4 Long term (current) use of insulin; Z79.891 Long term (current) use of opiate analgesic; Z79.899 Other long term (current) drug therapy
CPT/HCPCS: 36415; 74183; 80048; 80061; 80076; 81001; 82947; 83690; 85025; 87635; 96374; 96375; 99285; A9585; J1170; J1650; J2405

== ENCOUNTER 2022-06-18 13:38 | Outpatient (REF) | payer MEDICARE, OTHER, SELFPAY ==
[2022-06-18 13:46] LABS: MANUAL DIFF FLAG NO
[2022-06-18 14:51] LABS: Basophils Absolute Auto 0.1 X10*3/uL (0.0-0.2); Basophils Percent Auto 1.1 % (0-2); Eosinophils Absolute Auto 0.4 X10*3/uL (0.0-0.4); Eosinophils Percent Auto 6.1 % (0-4); Hematocrit 38.1 % (37.0-47.0); Imm Gran Abs Auto 0.03 X10*3/uL (0.00-0.03); Imm Gran Pct Auto 0.4 % (0.0-0.4); Lymphocytes Absolute Auto 1.8 X10*3/uL (1.2-4.9); Lymphocytes Percent Auto 24.2 % (20-40); Mean Corpuscular HGB Conc 31.5 g/dl (31.0-35.0); Mean Corpuscular Hemoglobin 28.1 pg (27.0-33.0); Mean Corpuscular Volume 89.2 fL (80.0-98.0); Monocytes Absolute Auto 0.5 X10*3/uL (0.1-1.2); Monocytes Percent Auto 6.9 % (2-11); Neutrophils Absolute Auto 4.4 x10*3/uL (2.0-8.3); Neutrophils Percent Auto 61.3 % (45-73); Platelet Count 314 X10*3/uL (160-400); Red Blood Count 4.27 X10*6/uL (4.20-5.50); Red Cell Distribution Width 13.8 % (11.0-16.0); White Blood Count 7.2 X10*3/uL (4.8-10.8)
[2022-06-18 14:57] LABS: Estimated Average Glucose 266 mg/dL; Hemoglobin A1c % 10.9 %
[2022-06-18 15:02] LABS: Alanine Aminotransferase 18 U/L (0-31); Albumin Level 4.1 g/dL (3.5-5.0); Alkaline Phosphatase 86 U/L (39-117); Anion Gap 15 (12-20); Aspartate Amino Transferase 21 U/L (5-31); Bilirubin Total 0.4 mg/dL (0.0-1.0); Blood Urea Nitrogen 17 mg/dL (9-16); Calcium 9.7 mg/dL (8.4-10.2); Carbon Dioxide 27 mmol/L (22-29); Chloride 101 mmol/L (96-108); Estimated Glomerular Filt Rate 60; Glucose Random 260 mg/dL (60-115); Potassium 4.6 mmol/L (3.3-5.1); Sodium 138 mmol/L (135-145)
[2022-06-18 15:13] LABS: Creatinine Urine 61.68 mg/dL; Microalbum/Creatinine Ratio Ur 61.6 ug/mg cr
== END 2022-06-18 13:39 | disposition home or self-care (01) ==
LOC: HO.LAB 13:38
PROVIDERS: PCP Internal Medicine; Visit Provider Internal Medicine
DX: I12.9 Hypertensive chronic kidney disease with stage 1 through stage 4 chronic kidney disease, or unspecified chronic kidney disease (principal); E11.22 Type 2 diabetes mellitus with diabetic chronic kidney disease; N18.9 Chronic kidney disease, unspecified
CPT/HCPCS: 36415; 80053; 82043; 83036; 85025

== ENCOUNTER → 2022-12-05 13:09 | Outpatient (REF) | payer MEDICARE, OTHER, SELFPAY ==
--- NOTE | 2022-12-05 13:11 | CA_ITS ---
Transthoracic Echocardiogram Patient (Last, First, Middle): Felecia Self M Gender: Female Date of : 1955 Age: 67 Procedure Date: 12/05/2022 Procedure Type: Transthoracic Echocardiogram Location: OP Height: 157.48 cm Weight: 99.34 kg BSA: 1.99 m2 Heart Rate: bpm BP: 126 / 78 mmHg Angle Furnaceman: TO Referring MD: Nico Keating MD Symptoms: I35.0 - Nonrheumatic aortic (valve) stenosis Study Quality: Fair Conclusions: - The left ventricular systolic function is normal. The calculated ejection fraction is 64% by biplane method. - There is moderate calcification of the aortic valve. There is mild aortic valve stenosis. Findings Left Ventricle Normal left ventricular cavity size. The left ventricular systolic function is normal. The calculated ejection fraction is 64% by biplane method. There is no evidence of regional wall motion abnormalities. E/E prime ratio is >15, consistent with elevated filling pressures. Evidence suggests grade I (mild) diastolic dysfunction. There is mild septal asymmetric hypertrophy. Right Ventricle Normal right ventricular cavity size and systolic function. Atria The left atrium is moderately dilated. The right atrium is normal in size. Aortic Valve The aortic valve was not well visualized. There is moderate calcification of the aortic valve. There is mild aortic valve stenosis. The peak aortic velocity is 2.68 m/s with a calculated peak gradient of 29 mmHg. The mean gradient is 16 mmHg. The aortic valve area is 1.71 cm2. There is no aortic valve regurgitation. Mitral Valve There is moderate mitral annular calcification. There is no mitral valve regurgitation. Mean gradient across the mitral valve 4mmHg at 71/min. Cannot exclude mild mitral stenosis. Pulmonic Valve The pulmonic valve is likely normal. Tricuspid Valve There is trace tricuspid valve regurgitation. There is no evidence of pulmonary hypertension. Great Vessels The asc aorta is normal in size. Venous The inferior vena cava is normal in size and collapses greater than 50% with inspiration. Pericardium/Pleural There is no evidence of pericardial effusion. Prior Study Comparison No significant change compared to prior study dated: 09/14/2020. Measurements 2D Linear Measurements IVSd: 1.19 0.6-0.9/0.6-1.0 cm LVIDd: 4.69 3.9-5.3/4.2-5.9 cm LVIDd Index: 2.36 2.4-3.2/2.2-3.1 cm/m2 LVIDs: 2.70 2.0-3.6 cm LVPWd: 0.89 0.7-1.1 cm LA Diam: 3.80 2.7-3.8/3.0-4.0 cm LAIDs Index: 1.91 1.5-2.3 cm/m2 LV Mass: 214.98 67-162/88-224 g LV Mass Index: 108.03 43-95/49-115 g/m2 LVOT Diam: 1.90 3.0+(-)1.3 cm 2D Systolic Function EF 4C: 64.40 >55% EF 2C: 63.60 >55% EF BiP: 64.30 >55% Mitral Valve MV VTI: 0.43 MV Pk Espinoza: 1.46 MV Mn Espinoza: 0.91 MV Pk Grad: 9.00 MV Mn Grad: 4.00 MV Pk E: 1.17 MV PK A: 1.36 MV Decel Time: 240.00 E/A: 0.90 E'Lateral: 5.22 E'Medial: 7.40 E/E' Med: 15.80 E/E' Lat: 22.40 PHT: 70.00 MVA PHT: 3.14 MVA Continuity: 2.48 Decel [place]: 4.87 Aortic Valve AoV Pk Espinoza: 2.68 AoV Mn Espinoza: 1.89 AoV VTI: 0.62 AoV Pk Grad: 29.00 Aov Mn Grad: 16.00 [place] Cont.VTI: 1.71 LVOT LVOT Pk Espinoza: 1.55 LVOT Mn Espinoza: 1.10 LVOT VTI: 0.37 LVOT Pk Grad: 10.00 LVOT Mn Grad: 5.00 LVOT Diam: 1.90 LVOT Area: 2.84 Diastolic Function MV Pk E: 1.17 MV Pk A: 1.36 E/A: 0.90 E'Medial: 7.40 E/E' Med: 15.80 E' Laterial: 5.22 E/E' Lat: 22.40 Right Ventricle TAPSE (mm): 27.70 TVS' Espinoza: 12.30 Tricuspid Valve TR Pk Espinoza: 2.08 TR Pk Grad: 17.00 RA Press: 3.00 RVSP: 20.00 Great Vessels Aorta Sinus of Valsalva: 2.80 2.0-3.5 cm Ao Asc: 3.20 2.1-3.4 cm Updated in Other Vendor System with Status of Final Nico Keating MD electronically signed on 12/06/2022 10:35:27 AM with status of Final
== END ==
LOC: HO.CARD 13:09
PROVIDERS: PCP Internal Medicine; Visit Provider Internal Medicine
DX: R01.1 Cardiac murmur, unspecified (principal); I35.0 Nonrheumatic aortic (valve) stenosis
CPT/HCPCS: 93306

== ENCOUNTER 2023-03-08 14:07 | Outpatient (REF) | payer MEDICARE, OTHER, SELFPAY ==
--- NOTE | ~2023-03-08 | XR_ITS ---
EXAMINATION: XR HIP, RIGHT , CLINICAL INFORMATION: Fall COMPARISON: Prior study 2019 TECHNIQUE: 2 views Frontal and lateral views of the hip acquired. , FINDINGS: There is no evidence of acute fracture or dislocation. There are mild degenerative arthritic changes of the hip evident by sclerotic changes of the acetabular roof and narrowing of the joint space. Adjacent pubic rami are intact. Surrounding soft tissues are unremarkable. XR/XR hip RT min 2V IMPRESSION: * Mild degenerative osteoarthritis. * No radiographic evidence of acute fracture.
[2023-03-08 14:26] LABS: MANUAL DIFF FLAG NO
[2023-03-08 15:03] LABS: Basophils Absolute Auto 0.1 X10*3/uL (0.0-0.2); Eosinophils Absolute Auto 0.6 X10*3/uL (0.0-0.4); Hematocrit 36.8 % (37.0-47.0); Hemoglobin 11.9 g/dl (12.0-16.0); Imm Gran Abs Auto 0.07 X10*3/uL (0.00-0.03); Imm Gran Pct Auto 0.9 % (0.0-0.4); Lymphocytes Percent Auto 25.5 % (20-40); Mean Corpuscular HGB Conc 32.3 g/dl (31.0-35.0); Mean Corpuscular Hemoglobin 28.5 pg (27.0-33.0); Mean Corpuscular Volume 88.2 fL (80.0-98.0); Mean Platelet Volume 11.4 fL (9.4-12.3); Monocytes Absolute Auto 0.7 X10*3/uL (0.1-1.2); Monocytes Percent Auto 9.3 % (2-11); Neutrophils Absolute Auto 4.3 x10*3/uL (2.0-8.3); Neutrophils Percent Auto 55.3 % (45-73); Platelet Count 311 X10*3/uL (160-400); Red Blood Count 4.17 X10*6/uL (4.20-5.50); Red Cell Distribution Width 13.5 % (11.0-16.0); White Blood Count 7.7 X10*3/uL (4.8-10.8)
[2023-03-08 15:37] LABS: Estimated Average Glucose 249 mg/dL; Hemoglobin A1c % 10.3 %
[2023-03-08 15:55] LABS: Alanine Aminotransferase 20 U/L (0-31); Albumin Level 3.9 g/dL (3.5-5.0); Alkaline Phosphatase 99 U/L (39-117); Anion Gap 13 (12-20); Aspartate Amino Transferase 23 U/L (5-31); Bilirubin Total 0.4 mg/dL (0.0-1.0); Blood Urea Nitrogen 23 mg/dL (9-16); Calcium 10.1 mg/dL (8.4-10.2); Carbon Dioxide 27 mmol/L (22-29); Chloride 107 mmol/L (96-108); Estimated Glomerular Filt Rate 57; Glucose Random 51 mg/dL (60-115); Potassium 4.2 mmol/L (3.3-5.1); Sodium 143 mmol/L (135-145); Total Protein 7.4 g/dL (6.5-8.0)
== END 2023-03-08 14:08 | disposition home or self-care (01) ==
LOC: HO.LAB 14:07
PROVIDERS: PCP Internal Medicine; Visit Provider Internal Medicine
DX: E11.9 Type 2 diabetes mellitus without complications (principal); M25.551 Pain in right hip; I10 Essential (primary) hypertension; Z91.81 History of falling
CPT/HCPCS: 36415; 73502; 80053; 83036; 85025

== ENCOUNTER 2023-04-08 12:22 | Outpatient (REF) | payer MEDICARE, OTHER, SELFPAY ==
--- NOTE | ~2023-04-08 | XR_ITS ---
EXAMINATION: XR PELVIS CLINICAL INFORMATION: Pain in unspecified hip COMPARISON: Right hip 03/08/2015 TECHNIQUE: AP view of the pelvis. FINDINGS: The bones are diffusely demineralized. Limited visualization due to body habitus and technical factors. Degenerative changes in bilateral sacroiliac joints. Degenerative changes in the imaged lower lumbar spine. Mild degenerative changes in the right hip with joint space narrowing and hypertrophic change. Mild degenerative changes on single AP view of the left hip. XR/XR pelvis 1-2V IMPRESSION: Mild degenerative changes in the right hip. Additional imaging with CT scan or MRI should be considered for better visualization as these modalities are much more sensitive for detection of fracture or other underlying pathology.
== END 2023-04-08 12:23 | disposition home or self-care (01) ==
LOC: HO.HOSX 12:22
PROVIDERS: Visit Provider Orthopaedic Surgery
DX: M16.11 Unilateral primary osteoarthritis, right hip (principal); M47.817 Spondylosis without myelopathy or radiculopathy, lumbosacral region; M54.16 Radiculopathy, lumbar region
CPT/HCPCS: 72170; 99202

== ENCOUNTER 2023-04-08 14:07 | Outpatient (AMB) | payer MEDICARE, OTHER, SELFPAY ==
--- NOTE | 2023-04-08 14:20 | MHC.OFFVIS ---
Intake Vital Signs 04/08/23 14:26 Height 5 ft 2 in Weight 230 lb BMI 42.1 Intake Visit Reasons: New Pt - Right Hip Pain Intake Note: Felecia is a 67 year old female who presents today as a new patient with complaints of Right hip pain. Patient reports that she has been having ongoing pain for about a month now, she took a fall when getting out of the tub landing on the right hip. She has not had any treatment for the hip. She feels pain across the upper right buttock. Directly after injury she was only comfortable while laying and would feel an intense increase of pain radiating down the right leg when standing or sitting up. Allergies gentamicin Allergy (Severe, Verified 05/25/22 11:32) Difficulty Breathing Iodinated Contrast Media Allergy (Severe, Verified 05/25/22 11:32) Difficulty Breathing, nausea and vomiting latex [LATEX] Allergy (Severe, Verified 05/25/22 11:32) Anaphylaxis morphine Allergy (Severe, Verified 05/25/22 11:32) Anaphylaxis Penicillins Allergy (Severe, Verified 05/25/22 11:32) stopped breathing as an shellfish derived [SHELLFISH DERIVED] Allergy (Severe, Verified 05/25/22 11:32) Difficulty Breathing, swelling vancomycin Allergy (Severe, Verified 05/25/22 11:32) Difficulty Breathing azithromycin Allergy (Unknown, Verified 05/25/22 11:32) Unknown erythromycin base Allergy (Unknown, Verified 05/25/22 11:32) Unknown esomeprazole Allergy (Unknown, Verified 05/25/22 11:32) Unknown pantoprazole Adverse Reaction (Mild, Verified 05/25/22 11:32) Nausea and Vomiting HPI New Pt - Right Hip Pain HPI Details Felecia is a 67 year old woman who presents with complaints of ~1 month right hip pain. She complains of pain, numbness, tingling, and burning that radiates from her right hip down her leg. She says her pain began ~1 month ago after a fall, and has improved with time. She says she has some mild groin pain in her right side, and walks with a mild limp. She says last week she was using a cane to walk, but this is not needed now. She finds mild relief from Tylenol and Ibuprofen. Her PCP wants her to avoid NSAIDs due to worries over her Kidneys. [facility] Medical History (Updated 04/08/23 @ 14:36 by Davis Valdivia) Accelerated essential hypertension Asthma Barretts esophagus CAD (coronary artery disease) Cervical cancer Diabetes type 2, uncontrolled Embolism Endometrial cancer Essential hypertension GERD (gastroesophageal reflux disease) HLD (hyperlipidemia) HTN (hypertension) detention (current) use of insulin Other and unspecified hyperlipidemia Pancreatic divisum Pancreatitis T2DM (type 2 diabetes mellitus) Vitamin D deficiency Surgical History Hx of cholecystectomy Hx of colonoscopy Hx of endoscopy Hx of hernia repair Hx of hysterectomy Hx of removal of cyst Family History Father Diabetes Mother Diabetes Social History (Updated 04/08/23 @ 14:26 by Sujey Moran CMA) Household Members: Spouse Housing: House Do you presently have visiting nurse or other home services: No Alcohol intake: never Patient Tobacco Use Status: Never used Tobacco e-Cigarette/Vaping Use: Never Used service: No Current occupational status: employed and unemployed Current occupation: [employer] Review of Systems Const All systems reviewed & are unremarkable except as noted in HPI and below Physical Exam Vital Signs: BMI result Body Mass Index 42.1 Const General: no acute distress, alert and awake Orientation/consciousness: patient oriented x3 HEENT Head: Yes normocephalic and Yes atraumatic Eyes EOM: EOMs intact bilaterally Resp Effort & Inspection: normal respiratory effort and able to speak in complete sentences Cardio Jugular venous distension: no JVD Skin General skin exam: turgor normal Rashes: no rashes Neuro General: patient oriented x3 Extrem Other: Right Hip: + impingement Walks with antalgia Pain localized to the groin and posterior lateral buttocks Psych Appearance: grossly normal Affect: normal affect Attitude: cooperative Results Reviewed Results Reviewed: I personally reviewed relevant radiographs. Mild right hip OA with joint space narrowing & subchondral sclerosis Assessment & Plan Assessment & Plan (1) Osteoarthritis of right hip: Code(s): M16.11 - Unilateral primary osteoarthritis, right hip Plan: This is a 67 year old woman with radiographically moderate hip OA. Mild groin pain, ambulates with a trendelenburg gait and occasionally uses an assistive cane. She is unable to take NSAIDs due to her Kidneys. I ordered PT for strengthening and recommend she remain active as tolerated, she can follow up prn, if her symptoms persist or worsen we can consider a hip injection. (2) Lumbar radiculopathy: Code(s): M54.16 - Radiculopathy, lumbar region Plan: ~1 month of lumbar radiculopathy, S/P fall. She has burning, numbness, and tingling that radiate down her right leg, which has improved somewhat with time. I discussed her diagnosis and treatment options. If she finds no improvement from PT, we can consider a referral to Pain Management. Plan Scribed for Leoncio Parker MD by Davis Valdivia, medical coordinator pesticide use, on 04/08/23 at 2:40 PM, EST. Orders: Orders XR pelvis 1-2V 04/08/23 M25.559 - Pain in unspecified hip PT Evaluation and Treatment 04/08/23 M16.11 - Unilateral primary osteoarthritis, right hip, M47.817 - Spondylosis without myelopathy or radiculopathy, lumbosacral region, M54.16 - Radiculopathy, lumbar region Coding Level of Care Code New Pt Level 4 (57710) Diagnoses Osteoarthritis of right hip M16.11 Lumbar radiculopathy M54.16
[2023-04-08 14:26] VITALS: BMI 42.1
== END 2023-04-08 14:53 | disposition home or self-care (01) ==
PROVIDERS: PCP Internal Medicine; Visit Provider Orthopaedic Surgery
DX: M16.11 Unilateral primary osteoarthritis, right hip (principal); M54.16 Radiculopathy, lumbar region
CPT/HCPCS: 99204

== ENCOUNTER 2023-06-27 13:15 | Outpatient (REF) | payer MEDICARE, OTHER, SELFPAY ==
--- NOTE | ~2023-06-27 | MM_ITS ---
EXAMINATION: BONE DENSITOMETRY CLINICAL INDICATION: Screening. COMPARISON: Baseline BD dated 07/11/2009. TECHNIQUE: Using a [employer] DXA System (software version: 13.1) manufactured by [employer], dual-energy x-ray absorptiometry was performed of the lumbar spine and left hip. The images are of good technical quality. Summary results are attached. FINDINGS: LEFT FEMUR, NECK: Current: BMD 0.831 g/cm2, Z-score -0.6, T-score -1.5, osteopenia. Baseline: BMD 0.977 g/cm2. LEFT FEMUR, TOTAL: Current: BMD 0.977 g/cm2, Z-score 0.4, T-score -0.2, normal, 12.8% decrease from baseline (<5% change is not significant). Baseline: BMD 1.121 g/cm2. AP SPINE L1-L2 (excluding L3 and L4): The data of L1-L4 has been changed to exclude the L3 and L4 vertebral bodies, because degenerative sclerosis at these levels may cause overestimation of lumbar spine density. Current: BMD 1.289 g/cm2, Z-score 1.5, T-score 1.0, normal, 3.1% increase from baseline (<5% change is not significant). Baseline: BMD 1.250 g/cm2. IDENTIFIED RISK FACTORS: Early menopause, height loss, hysterectomy, bilateral oophorectomy, recurrent falls, secondary osteoporosis. HISTORY OF FRACTURE: None listed. MEDICATIONS: Calcium, vitamin D. MM/XR DEXA axial skeleton IMPRESSION: 1. DIAGNOSIS: Osteopenia based on the lowest T-score value of -1.5 in the femoral neck applying World Health Organization criteria. 2. 10-YEAR FRACTURE RISK PREDICTION, FRAX: Major osteoporotic fracture (clinical spine, forearm, hip or shoulder) 8.6%. Hip fracture 1.1%. 3. Treatment Recommendations: NOF guidelines recommend consideration for treatment in postmenopausal women and men age 50 and older presenting with the following: -A hip or vertebral (clinical or morphometric) fracture. -T-score less than or equal to -2.5 at the femoral neck or spine after appropriate evaluation to exclude secondary causes. -Low bone mass at the hip or spine and a 10-year fracture probability by FRAX of greater than or equal to 3% for hip fracture or greater than or equal to 20% for major osteoporotic fracture based on the [place] adapted WHO algorithm. 4. Other Recommendations: All treatment decisions require clinical judgment and consideration of individual patient factors, including patient preferences, comorbidities, previous drug use, risk factors not captured in the FRAX model (e.g. frailty, falls, vitamin D deficiency, increased bone turnover, interval significant decline in bone density) and possible under or overestimation of fracture risk by FRAX. Additional medical evaluation for secondary cause of low bone mineral density may be appropriate. FUTURE SCAN RECOMMENDATION: People with diagnosed cases of osteoporosis or at high risk for fracture should have regular bone mineral density tests. For patients eligible for Medicare, routine testing is allowed once every 2 years. The testing frequency can be increased to one year for patients who have rapidly progressing disease, those who are receiving or discontinuing medical therapy to restore bone mass, or have additional risk factors.
--- NOTE | ~2023-06-27 | MM_ITS ---
EXAMINATION: MM SCREENING DIGITAL BREAST TOMOSYNTHESIS, BILATERAL CLINICAL INFORMATION: Screening. Asymptomatic. Positive family history of breast CA in patient's mother. Unknown age of diagnosis, but premenopausal. COMPARISON: Mammography: 09/19/2017, 07/24/2016, 05/12/2015, 03/19/2014, 03/19/2012, and dating back to 2008. TECHNIQUE: Digital breast tomosynthesis is performed in both the craniocaudal and mediolateral oblique views along with computer-aided detection (CAD). Synthesized 2D images are generated from the tomosynthesis. Additional bilateral full-field MLO projections were obtained. FINDINGS: There are scattered areas of fibroglandular density (ACR BI-RADS breast composition Category b). There are vascular calcifications as well as benign type scattered secretory and dermal calcifications. There are no suspicious masses, suspicious grouped calcifications, or areas of architectural distortion in either breast. The parenchymal pattern is stable from prior exams. MM/MM tomosynthesis screening BI IMPRESSION: No mammographic evidence of malignancy. Stable benign findings ASSESSMENT: BI-RADS BI-RADS 2 - Benign Findings RECOMMENDATION: Routine annual mammography screening. 1 year F/U This examination should not preclude the clinical evaluation of a suspicious palpable abnormality. This patient's information was entered into a reminder system with a target due date for their next mammogram.
== END 2023-06-27 13:16 | disposition home or self-care (01) ==
LOC: HO.MAMMO 13:15
PROVIDERS: PCP Internal Medicine; Visit Provider Internal Medicine
DX: Z12.31 Encounter for screening mammogram for malignant neoplasm of breast (principal); Z13.820 Encounter for screening for osteoporosis; Z78.0 Asymptomatic menopausal state
CPT/HCPCS: 77063; 77067; 77080

== ENCOUNTER → 2023-06-27 13:30 | Outpatient (BNV) | payer MEDICARE, OTHER, SELFPAY | PROVIDERS: PCP Internal Medicine; Visit Provider Radiology Diagnostic Radiology | DX: Z12.31 Encounter for screening mammogram for malignant neoplasm of breast (principal) | CPT/HCPCS: 77063; 77067 ==

== ENCOUNTER 2023-07-03 09:19 | Day surgery (SDC) | payer MEDICARE, OTHER, SELFPAY ==
--- NOTE | 2023-07-02 09:19 | HO.ANESPROP2 ---
HPI - Anesthesia Eval Consult details Narrative: 68yo F for Upper Endoscopy and Colonoscopy *Multiple Med Allergies* [facility] Active Problems Active Problems: All Active Problems (Updated 07/01/23 @ 08:03 by Jeanine Jhaveri, RN) Osteoarthritis of right hip (Acute) Lumbar radiculopathy (Acute) Allergy to iodine (Acute) Non-rheumatic aortic stenosis (Acute) SOB (shortness of breath) on exertion (Acute) Diabetes (Acute) care home (current) use of insulin (Acute) Diabetes type 2, uncontrolled (Acute) Other and unspecified hyperlipidemia (Acute) Vitamin D deficiency (Acute) Past Medical History Medical History (Updated 07/01/23 @ 08:03 by Jeanine Jhaveri RN) Hypertriglyceridemia Asthma Endometrial cancer Barretts esophagus GERD (gastroesophageal reflux disease) Pancreatic divisum CAD (coronary artery disease) care home (current) use of insulin Diabetes type 2, uncontrolled Cervical cancer Other and unspecified hyperlipidemia Essential hypertension Vitamin D deficiency T2DM (type 2 diabetes mellitus) HLD (hyperlipidemia) HTN (hypertension) Pancreatitis Accelerated essential hypertension Embolism Family History Family History Father Diabetes Mother Diabetes Surgical History Surgical History (Updated 07/01/23 @ 08:03 by Jeanine Jhaveri RN) History of esophagogastroduodenoscopy (EGD) Hx of colonoscopy Hx of removal of cyst Hx of hernia repair Hx of cholecystectomy Hx of endoscopy Hx of hysterectomy Social History Social History (Updated 04/08/23 @ 14:26 by Sujey Moran CMA) Household Members: Spouse Housing: House Do you presently have visiting nurse or other home services: No Alcohol intake: never Patient Tobacco Use Status: Never used Tobacco e-Cigarette/Vaping Use: Never Used service: No Current occupational status: employed and unemployed Current occupation: [employer] Allergies Allergy/AdvReac Type Severity Reaction Status Date / Time gentamicin Allergy Severe Difficulty Verified 05/25/22 11:32 Breathing Iodinated Contrast Media Allergy Severe Difficulty Verified 05/25/22 11:32 Breathing, nausea and vomiting latex [LATEX] Allergy Severe Anaphylaxis Verified 05/25/22 11:32 morphine Allergy Severe Anaphylaxis Verified 05/25/22 11:32 Penicillins Allergy Severe stopped Verified 05/25/22 11:32 breathing as an shellfish derived Allergy Severe Difficulty Verified 05/25/22 11:32 [SHELLFISH DERIVED] Breathing, swelling vancomycin Allergy Severe Difficulty Verified 05/25/22 11:32 Breathing azithromycin Allergy Unknown Unknown Verified 05/25/22 11:32 erythromycin base Allergy Unknown Unknown Verified 05/25/22 11:32 esomeprazole Allergy Unknown Unknown Verified 05/25/22 11:32 pantoprazole AdvReac Mild Nausea and Verified 05/25/22 11:32 Vomiting Home Medications Medication Instructions Recorded Confirmed Last Taken Type amlodipine 10 mg tablet 1 tab PO DAILY 05/24/22 05/24/22 Unknown History atorvastatin 40 mg tablet 1 tab PO DAILY 05/24/22 07/01/23 Unknown History enalapril maleate 20 mg tablet 1 tab PO BID 05/24/22 07/01/23 Unknown History fenofibrate nanocrystallized 145 1 tab PO DAILY 05/24/22 07/01/23 Unknown History mg tablet furosemide 40 mg tablet 1 tab PO DAILY 05/24/22 07/01/23 Unknown History gabapentin 300 mg capsule 3 cap PO BEDTIME 05/24/22 05/24/22 Unknown History insulin detemir U-100 100 unit/mL 75 unit subcut DAILY 05/24/22 05/24/22 Unknown History (3 mL) subcutaneous pen (Levemir FlexTouch U-100 Insulin) insulin lispro 100 unit/mL 1 sliding scale dose subcut 05/24/22 07/01/23 Unknown History subcutaneous pen USEASDIRECTD metoprolol tartrate 100 mg tablet 1 tab PO BID 05/24/22 07/01/23 Unknown History oxycodone 10 mg tablet 1 tab PO QID PRN Pain 05/24/22 07/01/23 Unknown History insulin detemir U-100 100 unit/mL unit subcut 04/08/23 Unknown History subcutaneous solution (Levemir U-100 Insulin) Exam Exam Date and Time: July 02, 2023 0919 Pertinent Lab Results Pertinent Lab Results: Laboratory Tests 03/08/23 14:24 WBC 7.7 Hgb 11.9 L Hct 36.8 L Plt Count 311 Sodium 143 Potassium 4.2 Chloride 107 Carbon Dioxide 27 BUN 23 H Creatinine 0.97 Narrative Narrative: ECHO 11/2022 Conclusions: - The left ventricular systolic function is normal. The calculated ejection fraction is 64% by biplane method. - There is moderate calcification of the aortic valve. There is mild aortic valve stenosis. NM cardiolite stress test 2020 Impression: 1. Myocardial perfusion imaging study shows normal myocardial perfusion 2. Gated LVEF is 55% 3. Transient ischemic dilatation not present EKG is nondiagnostic for ischemia Cardiac cath 2020 with angiographically nml arteries Assessment and Plan Assessment Anesthesia Assessment: Chart Reviewed
[2023-07-03 06:32] VITALS: BMI 41.0
[2023-07-03] MEDS: Lactated Ringers 1,000 ML 100 ML IVCONT (09:43)
[2023-07-03 09:52] LABS: Glucose, Whole Blood 108 mg/dL (60-115)
[2023-07-03 10:38] VITALS: BP 148/51; PULSE 73; RESP 18; TEMP 36.7; O2SAT 98
--- NOTE | 2023-07-03 10:38 | P.CONAN_ITS ---
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 (Acute) Diabetes type 2, uncontrolled (Acute) Other and unspecified hyperlipidemia (Acute) Vitamin D deficiency (Acute) Past Medical History Medical History (Updated 07/01/23 @ 08:03 by Jeanine Jhaveri, RN) Hypertriglyceridemia Asthma Endometrial cancer Barretts esophagus GERD (gastroesophageal reflux disease) Pancreatic divisum CAD (coronary artery disease) prison (current) use of insulin Diabetes type 2, uncontrolled Cervical cancer Other and unspecified hyperlipidemia Essential hypertension Vitamin D deficiency T2DM (type 2 diabetes mellitus) HLD (hyperlipidemia) HTN (hypertension) Pancreatitis Accelerated essential hypertension Embolism Family History Family History Father Diabetes Mother Diabetes Family history of problems with anesthesia: No Surgical History Surgical History (Updated 07/01/23 @ 08:03 by Jeanine Jhaveri RN) History of esophagogastroduodenoscopy (EGD) Hx of colonoscopy Hx of removal of cyst Hx of hernia repair Hx of cholecystectomy Hx of endoscopy Hx of hysterectomy History of Problems with Anesthesia: No Social History Social History (Updated 04/08/23 @ 14:26 by Sujey Moran CMA) Household Members: Spouse Housing: House Do you presently have visiting nurse or other home services: No Alcohol intake: never Patient Tobacco Use Status: Former Tobacco user e-Cigarette/Vaping Use: Never Used Are you DNR?: No Advance Directives: No Advance Directives Information Provided: Yes Nutrition Risks: No Nutritional Risk service: No Current occupational status: employed and unemployed Current occupation: [employer] Allergies Allergy/AdvReac Type Severity Reaction Status Date / Time gentamicin Allergy Severe Difficulty Verified 07/03/23 09:33 Breathing Iodinated Contrast Media Allergy Severe Difficulty Verified 07/03/23 09:33 Breathing, nausea and vomiting latex [LATEX] Allergy Severe Anaphylaxis Verified 07/03/23 09:33 morphine Allergy Severe Anaphylaxis Verified 07/03/23 09:33 Penicillins Allergy Severe stopped Verified 07/03/23 09:33 breathing as an shellfish derived Allergy Severe Difficulty Verified 07/03/23 09:33 [SHELLFISH DERIVED] Breathing, swelling vancomycin Allergy Severe Difficulty Verified 07/03/23 09:33 Breathing azithromycin Allergy Unknown Unknown Verified 07/03/23 09:33 erythromycin base Allergy Unknown Unknown Verified 07/03/23 09:33 esomeprazole Allergy Unknown Unknown Verified 07/03/23 09:33 pantoprazole AdvReac Mild Nausea and Verified 07/03/23 09:33 Vomiting Active Medications: Current Medications Albuterol Sulfate (Albuterol Sulfate (0.083%) 2.5 Mg/3 Ml Vial.Neb) 2.5 mg INHALE ONCE PRN PRN Reason: Shortness of Breath/Wheezing Lactated Ringer's (Lr) 1,000 mls @ 100 mls/hr IVCONT .Q10H ALYSSA Last Admin: 07/03/23 09:43 Dose: 100 mls/hr Ondansetron HCl (Ondansetron Hcl 4 Mg/2 Ml Vial) 4 mg IVPUSH ONCE PRN PRN Reason: Nausea and Vomiting Ondansetron HCl (Ondansetron Hcl 4 Mg/2 Ml Vial) 4 mg IVPUSH ONCE PRN PRN Reason: Nausea and Vomiting Sodium Biphosphate/Sodium Phosphate (Sodium Phosphate,Coke-Dibasic 133 Ml Enema) 133 ml MD ONCE PRN PRN Reason: Poor Colonoscopy Prep Results Home Medications Medication Instructions Recorded Confirmed Last Taken Type amlodipine 10 mg tablet 1 tab PO DAILY 05/24/22 05/24/22 07/03/23 History atorvastatin 40 mg tablet 1 tab PO DAILY 05/24/22 07/01/23 Unknown History enalapril maleate 20 mg tablet 1 tab PO BID 05/24/22 07/01/23 07/03/23 History fenofibrate nanocrystallized 145 1 tab PO DAILY 05/24/22 07/01/23 Unknown History mg tablet furosemide 40 mg tablet 1 tab PO DAILY 05/24/22 07/01/23 Unknown History gabapentin 300 mg capsule 3 cap PO BEDTIME 05/24/22 05/24/22 Unknown History insulin detemir U-100 100 unit/mL 75 unit subcut DAILY 05/24/22 05/24/22 Unknown History (3 mL) subcutaneous pen (Levemir FlexTouch U-100 Insulin) insulin lispro 100 unit/mL 1 sliding scale dose subcut 05/24/22 07/01/23 Unknown History subcutaneous pen USEASDIRECTD metoprolol tartrate 100 mg tablet 1 tab PO BID 05/24/22 07/01/23 Unknown History oxycodone 10 mg tablet 1 tab PO QID PRN Pain 05/24/22 07/01/23 Unknown History insulin detemir U-100 100 unit/mL unit subcut 04/08/23 Unknown History subcutaneous solution (Levemir U-100 Insulin) Exam Exam Date and Time: July 03, 2023 1038 Height,Weight and Vital Signs: Height 5 ft 3.5 in Weight 106.594 kg Pertinent Lab Results Pertinent Lab Results: Laboratory Tests 07/03/23 09:42 POC Glucose 108 Airway Mallampati Class: III TM Dist: >3cm Neck ROM: Full Heart: rrr Lungs: lungs Assessment and Plan Final Anesthetic Review Family History of Problems with Anesthesia: No History of Problems with Anesthesia: No NPO: Yes ASA Class: III Final Preanesthetic Review: No Changes in Pt Med Stat, Meds/Allgs Chart Reviewed, Consent Obtained/Reviewed and Anes Risks/Benef Reviewed Patient Risk: Intermediate Procedure Risk: Low Anesthetic Plan Anesthetic Plan: MAC: Disposition: Standard PACU
--- NOTE | 2023-07-03 10:38 | PC.NURSE ---
Iv attempt by author. [address] Dias. Ultrasound IV inserted by Dr. Arriaga.
[2023-07-03 11:42] VITALS: BP 113/59; PULSE 67; RESP 20; TEMP 36.2; O2SAT 99
--- NOTE | 2023-07-03 11:43 | PM.OP ---
Brief Operative Note Date of Service: 07/03/23 Pre-op diagnosis: Ro's, Screening Post-op diagnosis: other (Hiatal hernia, Gastritis, Diverticulosis) Procedure: EGD with biopsies, Colonoscopy to the cecum and TI Surgeon: Valeriano Corona MD Anesthesia: MAC Was an Logistics Management Specialist used for this Procedure?: No Estimated blood loss (mL): 2.0 Pathology: other (A. EG Junction at 38cm B. Gastric antrum) Condition: stable Disposition: PACU
[2023-07-03 11:57] VITALS: BP 153/75; PULSE 67; RESP 20; TEMP 36.6; O2SAT 99
--- NOTE | 2023-07-03 12:19 | OP_ITS ---
DATE OF SERVICE: 07/03/2023 SURGEON: Valeriano Corona MD INDICATIONS: The patient presents for evaluation of gastroesophageal reflux, Ro's esophagus, colorectal cancer screening and family history of colon cancer. Full consent has been obtained from her for both procedures, including risks of bleeding and perforation. PREOPERATIVE DIAGNOSIS: POSTOPERATIVE DIAGNOSIS: PROCEDURE PERFORMED: Esophagogastroduodenoscopy with biopsies, and colonoscopy to the cecum and terminal ileum. ESTIMATED BLOOD LOSS: COMPLICATIONS: ANESTHESIA: Monitored anesthesia care. ASSISTANTS: SPECIMENS: PREOPERATIVE DIAGNOSES: Gastroesophageal reflux, Ro's esophagus, family history of colon cancer, and colorectal cancer screening. POSTOPERATIVE DIAGNOSES: Gastroesophageal reflux, Ro's esophagus, family history of colon cancer, and colorectal cancer screening, hiatal hernia, gastritis, diverticulosis, internal hemorrhoids. DESCRIPTION OF PROCEDURE: The patient was placed in the left lateral decubitus position. The Olympus video gastroscope was passed in the posterior oropharynx and upper esophagus under direct vision. The scope was passed slowly into the distal esophagus. The gastroesophageal junction appeared at 38 cm. There was some slight irregularity consistent with reflux and small, less than 1 cm, areas of probable Ro's mucosa. There was no esophagitis nor any lesions. The scope entered the stomach. There was a small hiatal hernia. The scope was advanced to the pylorus and the duodenum was cannulated to the descending portion. The duodenum including the bulb appeared normal without mass or ulceration. The scope was withdrawn back to the stomach. The gastric antrum and body had some changes of chronic gastritis with erythema and edema. There was a tiny bit of coffee-ground material in the proximal stomach. Biopsies were obtained from the gastric antrum. Peristalsis was normal. The scope was retroflexed visualizing the proximal stomach carefully, which appeared normal, without any sign of mass or ulceration. The scope was straightened and withdrawn back to the esophagus. Biopsies were obtained at the EG junction at 38 cm. Proximal to that, the esophageal mucosa appeared normal. The scope was withdrawn from the patient. She was turned around for the colonoscopy. The digital rectal exam revealed no abnormalities. The Olympus video pediatric colonoscope was entered into the rectum and advanced easily to the cecum. Once in the cecum, I did identify normal-appearing cecal pouch with appendiceal orifice and a normal-appearing ileocecal valve. The terminal ileum was cannulated and appeared normal. The scope was withdrawn back in the colon. The entire cecum and ileocecal valve appeared normal. The scope was slowly withdrawn assessing all mucosal surfaces carefully. Preparation was excellent. I did not visualize any sign of polyps, colitis, nor angiodysplasia. There was a mild amount of sigmoid diverticulosis. In the rectum, scope was retroflexed visualizing internal hemorrhoids, but no other pathology. The rectal mucosa appeared normal. The scope was straightened and withdrawn from the patient. She tolerated the procedure well and was returned to the recovery area in stable condition. IMPRESSION: 1. Small hiatal hernia, gastroesophageal reflux, history of Ro's esophagus. 2. Gastritis. 3. Diverticulosis. 4. Internal hemorrhoids. PLAN: The results of the biopsies will be checked. I would recommend a repeat upper endoscopy and colonoscopy in 5 years for further screening and surveillance. She was advised not to use any aspirin nor NSAIDs for 1 week. She was advised to continue her lansoprazole for her reflux. MD LISSA Romero/OLIVIA / [id number] MTDD
== END 2023-07-03 12:32 | disposition home or self-care (01) ==
PROVIDERS: PCP Internal Medicine; Visit Provider Internal Medicine
PROC: (CPT 43239; principal; 2023-07-03 10:20)
DX: K29.70 Gastritis, unspecified, without bleeding (principal); K44.9 Diaphragmatic hernia without obstruction or gangrene; K21.9 Gastro-esophageal reflux disease without esophagitis; Z12.11 Encounter for screening for malignant neoplasm of colon; K57.30 Diverticulosis of large intestine without perforation or abscess without bleeding; K64.8 Other hemorrhoids; E11.9 Type 2 diabetes mellitus without complications; I10 Essential (primary) hypertension; E78.5 Hyperlipidemia, unspecified; J45.909 Unspecified asthma, uncomplicated; Z90.710 Acquired absence of both cervix and uterus; Z90.49 Acquired absence of other specified parts of digestive tract; Z87.891 Personal history of nicotine dependence; Z86.711 Personal history of pulmonary embolism; Z80.0 Family history of malignant neoplasm of digestive organs; Z83.719 Family history of colon polyps, unspecified; Z79.4 Long term (current) use of insulin; Z79.899 Other long term (current) drug therapy
CPT/HCPCS: 43239; G0105; 82947; 88305; 88342

== ENCOUNTER 2023-08-07 16:44 | Outpatient (REF) | payer MEDICARE, OTHER, SELFPAY ==
[2023-08-07 17:00] LABS: MANUAL DIFF FLAG NO
[2023-08-07 17:30] LABS: Estimated Average Glucose 249 mg/dL; Hemoglobin A1c % 10.3 % (<6.0)
[2023-08-07 17:38] LABS: Basophils Absolute Auto 0.1 X10*3/uL (0.0-0.2); Eosinophils Absolute Auto 0.3 X10*3/uL (0.0-0.4); Eosinophils Percent Auto 4.7 % (0-4); Hemoglobin 11.3 g/dl (12.0-16.0); Imm Gran Abs Auto 0.03 X10*3/uL (0.00-0.03); Imm Gran Pct Auto 0.4 % (0.0-0.4); Lymphocytes Absolute Auto 1.4 X10*3/uL (1.2-4.9); Lymphocytes Percent Auto 19.7 % (20-40); Mean Corpuscular HGB Conc 31.4 g/dl (31.0-35.0); Mean Corpuscular Hemoglobin 27.6 pg (27.0-33.0); Mean Platelet Volume 11.2 fL (9.4-12.3); Monocytes Absolute Auto 0.6 X10*3/uL (0.1-1.2); Monocytes Percent Auto 7.8 % (2-11); Neutrophils Absolute Auto 4.8 x10*3/uL (2.0-8.3); Neutrophils Percent Auto 66.4 % (45-73); Platelet Count 321 X10*3/uL (160-400); Red Blood Count 4.09 X10*6/uL (4.20-5.50); Red Cell Distribution Width 14.3 % (11.0-16.0); White Blood Count 7.2 X10*3/uL (4.8-10.8)
[2023-08-07 17:46] LABS: Alanine Aminotransferase 12 U/L (0-31); Albumin Level 3.9 g/dL (3.5-5.0); Alkaline Phosphatase 76 U/L (39-117); Anion Gap 11 (12-20); Aspartate Amino Transferase 19 U/L (5-31); Bilirubin Total 0.3 mg/dL (0.0-1.0); Blood Urea Nitrogen 11 mg/dL (9-16); Calcium 9.6 mg/dL (8.4-10.2); Carbon Dioxide 28 mmol/L (22-29); Chloride 106 mmol/L (96-108); Cholesterol 166 mg/dL (<200); Estimated Glomerular Filt Rate > 60; Glucose Random 133 mg/dL (60-115); Potassium 3.9 mmol/L (3.3-5.1); Sodium 141 mmol/L (135-145); Total Protein 7.4 g/dL (6.5-8.0)
[2023-08-07 18:01] LABS: Creatinine Urine 104.63 mg/dL; Microalbum/Creatinine Ratio Ur 62.1 ug/mg cr (<30)
[2023-08-07 21:26] LABS: Cholesterol 160 mg/dL (<200); HDL Cholesterol 39 mg/dL (>40); LDL Cholesterol Calculated 63 mg/dL (<100); Triglycerides 290 mg/dL (<150)
== END 2023-08-07 16:45 | disposition home or self-care (01) ==
LOC: HO.LAB 16:44
PROVIDERS: PCP Internal Medicine; Visit Provider Internal Medicine
DX: I12.9 Hypertensive chronic kidney disease with stage 1 through stage 4 chronic kidney disease, or unspecified chronic kidney disease (principal); E11.22 Type 2 diabetes mellitus with diabetic chronic kidney disease; N18.9 Chronic kidney disease, unspecified; E78.5 Hyperlipidemia, unspecified; R60.0 Localized edema
CPT/HCPCS: 36415; 80053; 80061; 82043; 82465; 82570; 83036; 85025

== ENCOUNTER 2023-08-09 14:06 | Outpatient (REF) | payer MEDICARE, OTHER, SELFPAY ==
--- NOTE | ~2023-08-09 | XR_ITS ---
EXAMINATION: XR CHEST 2 VIEWS CLINICAL INFORMATION: Cough and shortness of breath. COMPARISON: Chest radiographs, most recently 03/28/2017. TECHNIQUE: Frontal and lateral views of the chest were obtained. FINDINGS: The heart, great vessels, pulmonary vasculature and mediastinum are normal. The lungs show no focal infiltrate, effusion or pneumothorax. There is no acute osseous abnormality. There is multi-level thoracic spondylosis. XR/XR chest 2V IMPRESSION: No active cardiopulmonary disease.
[2023-08-09 14:48] LABS: MANUAL DIFF FLAG NO
[2023-08-09 15:04] LABS: Basophils Absolute Auto 0.1 X10*3/uL (0.0-0.2); Basophils Percent Auto 1.2 % (0-2); Eosinophils Absolute Auto 0.4 X10*3/uL (0.0-0.4); Eosinophils Percent Auto 6.6 % (0-4); Hematocrit 35.5 % (37.0-47.0); Hemoglobin 11.5 g/dl (12.0-16.0); Imm Gran Abs Auto 0.03 X10*3/uL (0.00-0.03); Imm Gran Pct Auto 0.5 % (0.0-0.4); Lymphocytes Absolute Auto 1.2 X10*3/uL (1.2-4.9); Lymphocytes Percent Auto 21.1 % (20-40); Mean Corpuscular HGB Conc 32.4 g/dl (31.0-35.0); Mean Corpuscular Hemoglobin 28.1 pg (27.0-33.0); Mean Corpuscular Volume 86.8 fL (80.0-98.0); Mean Platelet Volume 11.1 fL (9.4-12.3); Monocytes Absolute Auto 0.5 X10*3/uL (0.1-1.2); Monocytes Percent Auto 8.1 % (2-11); Neutrophils Absolute Auto 3.6 x10*3/uL (2.0-8.3); Neutrophils Percent Auto 62.5 % (45-73); Platelet Count 298 X10*3/uL (160-400); Red Blood Count 4.09 X10*6/uL (4.20-5.50); Red Cell Distribution Width 14.5 % (11.0-16.0); White Blood Count 5.8 X10*3/uL (4.8-10.8)
[2023-08-09 15:10] LABS: D Dimer High Sensitivity 170 NG/ML
[2023-08-09 15:31] LABS: Anion Gap 11 (12-20); Blood Urea Nitrogen 16 mg/dL (9-16); C Reactive Protein 0.78 mg/dL (< or = 0.50); Calcium 9.5 mg/dL (8.4-10.2); Carbon Dioxide 28 mmol/L (22-29); Chloride 106 mmol/L (96-108); Estimated Glomerular Filt Rate 55; Glucose Random 148 mg/dL (60-115); Potassium 3.9 mmol/L (3.3-5.1); Sodium 141 mmol/L (135-145)
== END 2023-08-09 14:07 | disposition home or self-care (01) ==
LOC: HO.LAB 14:06
PROVIDERS: PCP Internal Medicine; Visit Provider Internal Medicine
DX: R05.9 Cough, unspecified (principal); R06.02 Shortness of breath; E11.9 Type 2 diabetes mellitus without complications; N18.9 Chronic kidney disease, unspecified
CPT/HCPCS: 36415; 71046; 80048; 82550; 85025; 85379; 86140

== ENCOUNTER 2024-01-27 15:18 | Outpatient (AMB) | payer MEDICARE, OTHER, SELFPAY ==
[2024-01-27 15:20] VITALS: BP 140/70; PULSE 75; BMI 40.7
--- NOTE | 2024-01-27 15:20 | MHC.OFFVIS ---
Vital Signs 01/27/24 15:20 Height 5 ft 3.5 in Weight 233 lb 11.04 oz BMI 40.7 BP 140/70 H Blood Pressure Location Lt brachial Position Sitting Pulse 75 Pulse Source Monitor Intake Visit Reasons: over due fu Allergies gentamicin Allergy (Severe, Verified 07/03/23 09:33) Difficulty Breathing Iodinated Contrast Media Allergy (Severe, Verified 07/03/23 09:33) Difficulty Breathing, nausea and vomiting latex [LATEX] Allergy (Severe, Verified 07/03/23 09:33) Anaphylaxis morphine Allergy (Severe, Verified 07/03/23 09:33) Anaphylaxis Penicillins Allergy (Severe, Verified 07/03/23 09:33) stopped breathing as an shellfish derived [SHELLFISH DERIVED] Allergy (Severe, Verified 07/03/23 09:33) Difficulty Breathing, swelling vancomycin Allergy (Severe, Verified 07/03/23 09:33) Difficulty Breathing azithromycin Allergy (Unknown, Verified 07/03/23 09:33) Unknown erythromycin base Allergy (Unknown, Verified 07/03/23 09:33) Unknown esomeprazole Allergy (Unknown, Verified 07/03/23 09:33) Unknown pantoprazole Adverse Reaction (Mild, Verified 07/03/23 09:33) Nausea and Vomiting Medication List - Last Reconciled 01/27/24 by Nico Keating MD amlodipine 10 mg PO DAILY atorvastatin 40 mg PO DAILY enalapril maleate 20 mg PO BID fenofibrate nanocrystallized 145 mg PO DAILY gabapentin 3 caps PO BEDTIME insulin detemir U-100 (Levemir FlexTouch U-100 Insulin) 75 units subcut DAILY insulin detemir U-100 (Levemir U-100 Insulin) units subcut insulin lispro 1 sliding scale dose subcut USEASDIRECTD metoprolol tartrate 100 mg PO BID oxycodone 1 tab PO QID PRN torsemide 20 mg PO DAILY HPI Comments Details: Felecia returns for follow up after several years. Last seen in 2020. In the past, she was seen actually for an echocardiogram showing left ventricular hypertrophy. Background of obesity, poorly-controlled diabetes, hypertension, dyslipidemia. She was also complaining of some chest pressure type sensations. Some shortness of breath. That led to further workup leading to diagnostic catheterization 2020. No significant CAD however. She seems that she is just about the same as before. No clear-cut angina but she still feels short of breath with activity. Some leg swelling intermittently. She is on torsemide this time, possibly for question of heart failure. She also has aortic stenosis that is being monitored on echocardiogram. 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 Diabetes type 2, uncontrolled Cervical cancer Other and unspecified hyperlipidemia Essential hypertension Vitamin D deficiency T2DM (type 2 diabetes mellitus) HLD (hyperlipidemia) HTN (hypertension) Pancreatitis Accelerated essential hypertension Embolism Surgical History (Updated 07/01/23 @ 08:03 by Jeanine Jhaveri RN) History of esophagogastroduodenoscopy (EGD) Hx of colonoscopy Hx of removal of cyst Hx of hernia repair Hx of cholecystectomy Hx of endoscopy Hx of hysterectomy Family History Father Diabetes Mother Diabetes Social History (Updated 04/08/23 @ 14:26 by Sujey Moran CMA) Household Members: Spouse Housing: House Do you presently have visiting nurse or other home services: No Alcohol intake: never Comment: sleeping Patient Tobacco Use Status: Former Tobacco user e-Cigarette/Vaping Use: Never Used service: No Current occupational status: employed and unemployed Current occupation: [employer] Review of Systems Const Denies weakness ENT Denies dizziness Card Denies chest pain, Denies chest pain with activity, Denies syncope, Denies rapid heart rate, Denies pedal edema, Denies edema, Denies leg edema, Denies lightheadedness, Denies palpitations, Denies dyspnea, Denies dyspnea on exertion and Denies orthopnea Resp Denies cough, Denies dyspnea and Denies dyspnea on exertion GI Denies hematochezia and Denies change in stool character Musc Denies abnormal gait, Denies muscle cramps, Denies muscle weakness, Denies numbness, Denies radiating pain into limb and Denies tingling Neuro Denies abnormal gait, Denies dizziness, Denies syncope, Denies numbness, Denies tingling and Denies weakness Endo Denies palpitations Physical Exam Vital Signs: Last Vital Signs Pulse 75 01/27/24 15:20 BP 140/70 H 01/27/24 15:20 BMI result Body Mass Index 40.7 Const General: comfortable and no acute distress Orientation/consciousness: patient oriented x3 HEENT Other: Unremarkable Head: Yes normal to inspection Neck Neck: Yes normal visual inspection Chest Chest palpation & inspection: normal inspection of the chest Resp Auscultation: clear to auscultation bilaterally Cardio Palpation: normal PMI Heart sounds: S1 normal heart sound present, S2 normal heart sound present, no gallops, Murmur heart sound present systolic III/ and at the right sternal border and no rubs GI Palpation (GI): Soft to palpation Back/Spine/Pelvis Other: unremarkable Skin General skin exam: no rashes or lesions noted Neuro General: patient oriented x3 Extrem General: Yes normal to inspection Psych Mental Status: mental status grossly normal Office Procedures EKG Details: EKG with sinus rhythm at 75/Min; nonspecific ST-T changes in the inferior as well as anterolateral [place] [id number], Complete Assessment & Plan Assessment & Plan (1) Chronic heart failure with preserved ejection fraction: Code(s): I50.32 - Chronic diastolic (congestive) heart failure Category: Medical Plan: Cardiac catheterization 2020 with essentially normal coronary arteries. Mildly elevated filling pressures. Echocardiogram last year with mild diastolic dysfunction and elevated filling pressures. Clinically, no overt volume overload on exam but shortness of breath symptoms possibly from chronic heart failure preserved ejection fraction. Continue torsemide. Add Farxiga. If affordable, she may start. (2) Non-rheumatic aortic stenosis: Code(s): I35.0 - Nonrheumatic aortic (valve) stenosis Category: Medical Plan: In the echocardiogram from last year, mean gradient across aortic valve 16 mm Hg. Calculated valve area of 1.7 sq cm. Overall, suggestive of mild stenosis. We can recheck. (3) Mitral annular calcification: Code(s): I34.81 - Nonrheumatic mitral (valve) annulus calcification Category: Medical Plan: In the echocardiogram last year, moderate mitral annular calcification with possibly mild stenosis. May be followed on echocardiograms. (4) Type 2 diabetes mellitus with unspecified complications: Code(s): E11.8 - Type 2 diabetes mellitus with unspecified complications Category: Medical Plan: Poorly controlled most recently, hemoglobin A1c is 10.3%. She is on insulin. Add Farxiga. Discussed with patient and she is agreeable to try. (5) Essential hypertension: Code(s): I10 - Essential (primary) hypertension Category: Medical Plan: On amlodipine, metoprolol. Borderline high blood pressure. Plan Discussed with significant other. Orders: Orders CA echo transthoracic complete Today I35.0 - Nonrheumatic aortic (valve) stenosis Medications: New dapagliflozin propanediol (Farxiga) 10 mg PO DAILY 90 tabs 3RF E11.9 - Type 2 diabetes mellitus without complications Coding Level of Care Code Est Pt Level 4 (63617) Diagnoses Chronic heart failure with preserved ejection fraction I50.32 Non-rheumatic aortic stenosis I35.0 Mitral annular calcification I34.81 Type 2 diabetes mellitus with unspecified complications E11.8 Essential hypertension I10 CPT Codes EKG - CPT: 32272-[id number], Complete ([id number])
== END 2024-01-27 15:50 | disposition home or self-care (01) ==
PROVIDERS: PCP Internal Medicine; Visit Provider Internal Medicine
DX: I50.32 Chronic diastolic (congestive) heart failure (principal); I35.0 Nonrheumatic aortic (valve) stenosis; I34.81 Nonrheumatic mitral (valve) annulus calcification; E11.8 Type 2 diabetes mellitus with unspecified complications; I10 Essential (primary) hypertension
CPT/HCPCS: 93010; 99214

== ENCOUNTER → 2024-01-27 15:18 | Outpatient (BNVA) | payer MEDICARE, OTHER, SELFPAY | PROVIDERS: PCP Internal Medicine; Visit Provider Internal Medicine | DX: I35.0 Nonrheumatic aortic (valve) stenosis (principal); I11.0 Hypertensive heart disease with heart failure; I50.32 Chronic diastolic (congestive) heart failure; I34.81 Nonrheumatic mitral (valve) annulus calcification; E11.8 Type 2 diabetes mellitus with unspecified complications | CPT/HCPCS: 93005; 99212 ==

== ENCOUNTER → 2024-02-21 14:11 | Outpatient (REF) | payer MEDICARE, OTHER, SELFPAY ==
--- NOTE | 2024-02-21 14:14 | CA_ITS ---
Transthoracic Echocardiogram Patient (Last, First, Middle): Felecia Self M Gender: Female Date of : 1955 Age: 68 Procedure Date: 02/21/2024 Procedure Type: Transthoracic Echocardiogram Location: OP Height: 157.48 cm Weight: 104.33 kg BSA: 2.03 m2 Heart Rate: 70 bpm BP: 155 / 70 mmHg Lock Maintenance Supervisor: ANNELISE Referring MD: Nico Keating MD Symptoms: I35.0 - Nonrheumatic aortic (valve) stenosis Study Quality: Fair ECG Rhythm: Sinus Conclusions: - The left ventricular systolic function is normal. The visually estimated ejection fraction is between 65-70%. - There is moderate calcification of the aortic valve. There is mild aortic valve stenosis. - There is moderate mitral annular calcification. Findings Left Ventricle Normal left ventricular cavity size. There is mildly increased left ventricular wall thickness. The left ventricular systolic function is normal. The visually estimated ejection fraction is between 65-70%. There is no evidence of regional wall motion abnormalities. Evidence suggests grade II (moderate) diastolic dysfunction. There is moderate septal asymmetric hypertrophy. Right Ventricle Normal right ventricular cavity size and systolic function. Atria The left atrium is moderately dilated. The right atrium is normal in size. Aortic Valve There is moderate calcification of the aortic valve. There is mild aortic valve stenosis. There is no aortic valve regurgitation. Mitral Valve There is moderate mitral annular calcification. There is no mitral valve regurgitation. There is no mitral valve stenosis. Pulmonic Valve The pulmonic valve is likely normal. Tricuspid Valve There is trace tricuspid valve regurgitation. There is no evidence of pulmonary hypertension. Great Vessels The asc aorta is normal in size. Venous The inferior vena cava is normal in size and collapses greater than 50% with inspiration. Pericardium/Pleural There is no evidence of pericardial effusion. Prior Study Comparison No significant change compared to prior study dated: 12/05/2022. Measurements 2D Linear Measurements IVSd: 1.44 0.6-0.9/0.6-1.0 cm LVIDd: 4.65 3.9-5.3/4.2-5.9 cm LVIDd Index: 2.29 2.4-3.2/2.2-3.1 cm/m2 LVIDs: 2.78 2.0-3.6 cm LVPWd: 1.18 0.7-1.1 cm LA Diam: 3.70 2.7-3.8/3.0-4.0 cm LAIDs Index: 1.82 1.5-2.3 cm/m2 LV Mass: 295.04 67-162/88-224 g LV Mass Index: 145.34 43-95/49-115 g/m2 LVOT Diam: 1.90 3.0+(-)1.3 cm 2D Systolic Function EF 4C: 64.40 >55% EF 2C: 62.40 >55% EF BiP: 61.10 >55% Mitral Valve MV VTI: 0.41 MV Pk Espinoza: 1.41 MV Mn Espinoza: 0.94 MV Pk Grad: 8.00 MV Mn Grad: 4.00 MV Pk E: 1.33 MV PK A: 1.37 MV Decel Time: 280.00 E/A: 1.00 E'Lateral: 4.21 E'Medial: 5.61 E/E' Med: 23.70 E/E' Lat: 31.60 PHT: 82.00 MVA PHT: 2.68 MVA Continuity: 2.63 Decel [place]: 4.74 Aortic Valve AoV Pk Espinoza: 2.31 AoV Mn Espinoza: 1.69 AoV VTI: 0.59 AoV Pk Grad: 21.00 Aov Mn Grad: 13.00 [place] Cont.VTI: 1.84 LVOT LVOT Pk Espinoza: 1.54 LVOT Mn Espinoza: 1.14 LVOT VTI: 0.38 LVOT Pk Grad: 9.00 LVOT Mn Grad: 6.00 LVOT Diam: 1.90 LVOT Area: 2.84 Diastolic Function MV Pk E: 1.33 MV Pk A: 1.37 E/A: 1.00 E'Medial: 5.61 E/E' Med: 23.70 E' Laterial: 4.21 E/E' Lat: 31.60 Right Ventricle TAPSE (mm): 23.00 TVS' Espinoza: 12.60 Tricuspid Valve TR Pk Espinoza: 2.05 TR Pk Grad: 17.00 RA Press: 3.00 RVSP: 20.00 Great Vessels Aorta Sinus of Valsalva: 2.80 2.0-3.5 cm Ao Asc: 3.40 2.1-3.4 cm Pulmonary Valve PV Pk Espinoza: 1.02 Peak PV Grad: 4.00 Updated in Other Vendor System with Status of Final Nico Keating MD electronically signed on 02/22/2024 1:30:48 PM with status of Final
== END ==
LOC: HO.CARD 14:11
PROVIDERS: PCP Internal Medicine; Visit Provider Internal Medicine
DX: I35.0 Nonrheumatic aortic (valve) stenosis (principal)
CPT/HCPCS: 93306

== ENCOUNTER → 2024-02-21 14:14 | Outpatient (BNV) | payer MEDICARE, OTHER, SELFPAY | PROVIDERS: PCP Internal Medicine; Visit Provider Internal Medicine | DX: I35.0 Nonrheumatic aortic (valve) stenosis (principal); I35.8 Other nonrheumatic aortic valve disorders; I34.81 Nonrheumatic mitral (valve) annulus calcification; I42.2 Other hypertrophic cardiomyopathy | CPT/HCPCS: 93306 ==

== ENCOUNTER 2024-03-25 15:28 | Outpatient (REF) | payer MEDICARE, OTHER, SELFPAY ==
[2024-03-25 15:56] LABS: MANUAL DIFF FLAG NO
[2024-03-25 17:30] LABS: Appearance Urine Clear; Color Urine Yellow; Glucose Urine UA Negative (Negative); Leukocyte Esterase Urine Small (1+) (Negative); Nitrite Urine Negative (Negative); Specific Gravity - Urine 1.025 (1.005-1.025); UMIC TRIGGER UACC YES; Urine Blood Negative (Negative); Urine Ketones Trace mg/dL (Negative); Urine Protein Trace mg/dL (Neg-Trace)
[2024-03-25 17:31] LABS: Basophils Absolute Auto 0.1 X10*3/uL (0.0-0.2); Basophils Percent Auto 0.9 % (0-2); Eosinophils Absolute Auto 0.4 X10*3/uL (0.0-0.4); Eosinophils Percent Auto 5.2 % (0-4); Hemoglobin 11.2 g/dl (12.0-16.0); Imm Gran Abs Auto 0.04 X10*3/uL (0.00-0.03); Imm Gran Pct Auto 0.5 % (0.0-0.4); Lymphocytes Absolute Auto 1.5 X10*3/uL (1.2-4.9); Lymphocytes Percent Auto 20.3 % (20-40); Mean Corpuscular Hemoglobin 28.2 pg (27.0-33.0); Mean Corpuscular Volume 88.2 fL (80.0-98.0); Mean Platelet Volume 11.9 fL (9.4-12.3); Monocytes Absolute Auto 0.6 X10*3/uL (0.1-1.2); Monocytes Percent Auto 8.1 % (2-11); Neutrophils Absolute Auto 4.9 x10*3/uL (2.0-8.3); Platelet Count 307 X10*3/uL (160-400); Red Blood Count 3.97 X10*6/uL (4.20-5.50); Red Cell Distribution Width 14.3 % (11.0-16.0); White Blood Count 7.5 X10*3/uL (4.8-10.8)
[2024-03-25 18:09] LABS: Microalbum/Creatinine Ratio Ur 36.7 ug/mg cr (<30)
[2024-03-25 18:15] LABS: Bacteria Urine None Seen (None Seen); Hyaline Casts Urine >20 /LPF (0-2); RBC Urine 0-2 /HPF (0-2); UACC Culture Trigger YES
[2024-03-25 18:20] LABS: Estimated Average Glucose 275 mg/dL; Hemoglobin A1c % 11.2 % (<6.0)
[2024-03-25 18:26] LABS: Thyroid Stimulating Hormone 2.65 uIU/mL (0.32-4.0)
[2024-03-25 19:33] LABS: Alanine Aminotransferase 14 U/L (0-31); Albumin Level 3.7 g/dL (3.5-5.0); Alkaline Phosphatase 93 U/L (39-117); Anion Gap 17 (12-20); Aspartate Amino Transferase 27 U/L (5-31); Bilirubin Total 0.3 mg/dL (0.0-1.0); Blood Urea Nitrogen 23 mg/dL (9-16); Calcium 9.5 mg/dL (8.4-10.2); Carbon Dioxide 27 mmol/L (22-29); Chloride 101 mmol/L (96-108); Estimated Glomerular Filt Rate 38; Glucose Random 362 mg/dL (60-115); Potassium 4.5 mmol/L (3.3-5.1); Sodium 140 mmol/L (135-145); Total Protein 6.9 g/dL (6.5-8.0)
== END 2024-03-25 15:29 | disposition home or self-care (01) ==
LOC: HO.LAB 15:28
PROVIDERS: PCP Internal Medicine; Visit Provider Internal Medicine
DX: I10 Essential (primary) hypertension (principal); E11.9 Type 2 diabetes mellitus without complications; R60.9 Edema, unspecified; N18.9 Chronic kidney disease, unspecified
CPT/HCPCS: 36415; 80053; 81001; 82043; 82570; 83036; 84443; 85025; 87086

== ENCOUNTER 2024-04-24 15:34 | Outpatient (AMB) | payer MEDICARE, OTHER, SELFPAY ==
--- NOTE | 2024-04-24 15:47 | HO.NEPHOV ---
Vital Signs 04/24/24 15:48 Height 5 ft 3.5 in Weight 233 lb BMI 40.6 BP 150/60 H Blood Pressure Location Rt brachial Position Sitting Pulse 74 Pulse Source Pulse Oximeter Pulse Oximetry (%) 95 Oxygen Delivery Method Room Air Intake Visit Reasons: Protenuria/ Conf Rewards Consultant Required: No Accompanied by: Spouse Allergies gentamicin Allergy (Severe, Verified 04/24/24 15:50) Difficulty Breathing Iodinated Contrast Media Allergy (Severe, Verified 04/24/24 15:50) Difficulty Breathing, nausea and vomiting latex [LATEX] Allergy (Severe, Verified 04/24/24 15:50) Anaphylaxis morphine Allergy (Severe, Verified 04/24/24 15:50) Anaphylaxis Penicillins Allergy (Severe, Verified 04/24/24 15:50) stopped breathing as an infant shellfish derived [SHELLFISH DERIVED] Allergy (Severe, Verified 04/24/24 15:50) Difficulty Breathing, swelling vancomycin Allergy (Severe, Verified 04/24/24 15:50) Difficulty Breathing azithromycin Allergy (Unknown, Verified 04/24/24 15:50) Unknown erythromycin base Allergy (Unknown, Verified 04/24/24 15:50) Unknown esomeprazole Allergy (Unknown, Verified 04/24/24 15:50) Unknown pantoprazole Adverse Reaction (Mild, Verified 04/24/24 15:50) Nausea and Vomiting HPI Comments Details: I had the pleasure of seeing Felecia, accompanied by her , in consultation for acute kidney injury. She has been a diabetic for long time. Blood sugars are uncontrolled. Her last A1c is over 11. She has history of pancreatitis. She has history of congestive heart failure with a preserved ejection fraction. Couple years ago she had coronary angiogram which showed patent coronary arteries. She has not been very strict with low-sodium diet. She has been having pedal edema, more so in the evenings and in warm humid weather. She does not monitor her blood sugar or blood pressure closely. She has been having generalized aches and pains and has been taking ibuprofen and Aleve on a regular basis for months when she has been taking an MICHAEL inhibitor. Her serum creatinine has gone up to 1.36. She denies any nausea, vomiting, diarrhea, epistaxis, photosensitivity, joint swellings, hematemesis, melena, hematuria, orthostatic symptoms. She had been prescribed Farxiga in the past by her Department Specialist but she has not taken it at all as she was worried about its side effects. She has no new bone or back pain. She has no history of renal stones. She has been having orthopnea with edema. She denies any chest pain, palpitation or syncope. She is concerned about her rise in serum creatinine. 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 Diabetes type 2, uncontrolled Cervical cancer Other and unspecified hyperlipidemia Essential hypertension Vitamin D deficiency T2DM (type 2 diabetes mellitus) HLD (hyperlipidemia) HTN (hypertension) Pancreatitis Accelerated essential hypertension Embolism Surgical History History of esophagogastroduodenoscopy (EGD) Hx of colonoscopy Hx of removal of cyst Hx of hernia repair Hx of cholecystectomy Hx of endoscopy Hx of hysterectomy Family History Father Diabetes Mother Diabetes Social History Household Members: Spouse Housing: House Do you presently have visiting nurse or other home services: No Alcohol intake: never Comment: sleeping Patient Tobacco Use Status: Former Tobacco user e-Cigarette/Vaping Use: Never Used service: No Current occupational status: employed and unemployed Current occupation: [employer] Review of Systems Const All systems reviewed & are unremarkable except as noted in HPI and below Physical Exam Vital Signs: Last Vital Signs Pulse 74 04/24/24 15:48 BP 150/60 H 04/24/24 15:48 Pulse Ox 95 04/24/24 15:48 Oxygen Delivery Method Room Air 04/24/24 15:48 BMI result Body Mass Index 40.6 Const General: no acute distress Orientation/consciousness: patient oriented x3 Eyes EOM: EOMs intact bilaterally Neck Neck: Yes supple Resp Auscultation: diminished lung sounds Cardio Rate: regular rate GI Palpation (GI): Soft to palpation General: Yes no CVA tenderness Back/Spine/Pelvis Back: no CVA tenderness Skin General skin exam: no rashes or lesions noted Neuro General: patient oriented x3 and moves all extremities Extrem General: Yes edema Results Reviewed Nephrology Results: Hgb 11.2 g/dl (12.0-16.0) L 03/25/24 WBC 7.5 X10*3/uL (4.8-10.8) 03/25/24 Plt Count 307 X10*3/uL (160-400) 03/25/24 Sodium 140 mmol/L (135-145) 03/25/24 Potassium 4.5 mmol/L (3.3-5.1) 03/25/24 Chloride 101 mmol/L (96-108) 03/25/24 Carbon Dioxide 27 mmol/L (22-29) 03/25/24 BUN 23 mg/dL (9-16) H 03/25/24 Creatinine 1.36 mg/dL (0.5-1.4) 03/25/24 Calcium 9.5 mg/dL (8.4-10.2) 03/25/24 Urine Protein Trace mg/dL (Neg-Trace) 03/25/24 Urine Creatinine 225.80 mg/dL 03/25/24 Assessment & Plan Assessment & Plan (1) CHARLES (acute kidney injury): Code(s): N17.9 - Acute kidney failure, unspecified Category: Medical (2) HTN (hypertension): Code(s): I10 - Essential (primary) hypertension Category: Medical Qualifiers: Hypertension type: essential hypertension Qualified Code(s): I10 - Essential (primary) hypertension (3) Edema: Code(s): R60.9 - Edema, unspecified Category: Medical Qualifiers: Edema type: localized Qualified Code(s): R60.0 - Localized edema Weston Izquierdo has CHARLES due to tubular injury. Her urine output is good. There is no reason to suspect any obstructive uropathy. She has longstanding diabetic with A1c over 11. She is on MICHAEL-inhibitor. She has been taking NSAIDs which clearly would have caused altered autoregulation of the kidney with resultant rise in serum creatinine. Differential diagnosis for CHARLES includes progression of her renal disease. 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 She is clinically hypervolemic with orthopnea. I encouraged to cut back salt in the diet. She is on amlodipine. I ordered urine protein creatinine ratio. I started her on isosorbide. I plan to increase her diuretics. I ordered follow-up renal functions. I plan to maximize her other medications and wean her off amlodipine given it may be contributing to her edema. More than 50% of time spent retrieving all the data, patient encounter, discussion and documentation. It involved 59 minutes. I answered all her and her 's questions. Follow-up appointment given. Orders: Orders Creatinine 2 Weeks N17.9 - Acute kidney failure, unspecified Blood Urea Nitrogen 2 Weeks N17.9 - Acute kidney failure, unspecified Electrolytes 2 Weeks N17.9 - Acute kidney failure, unspecified Protein Creatinine Ratio, Ur Today R60.0 - Localized edema Medications: New isosorbide mononitrate ER 30 mg PO DAILY 30 days 30 tabs 3RF Coding Level of Care Code New Pt Level 5 (60703) Diagnoses CHARLES (acute kidney injury) N17.9 Essential hypertension I10 Hypertension type: essential hypertension Localized edema R60.0 Edema type: localized
[2024-04-24 15:48] VITALS: BP 150/60; PULSE 74; O2SAT 95; BMI 40.6
== END 2024-04-24 16:36 | disposition home or self-care (01) ==
PROVIDERS: PCP Internal Medicine; Referring Provider Internal Medicine; Visit Provider Internal Medicine Nephrology
DX: N17.0 Acute kidney failure with tubular necrosis (principal); I12.9 Hypertensive chronic kidney disease with stage 1 through stage 4 chronic kidney disease, or unspecified chronic kidney disease; E11.22 Type 2 diabetes mellitus with diabetic chronic kidney disease; N18.2 Chronic kidney disease, stage 2 (mild); R60.0 Localized edema
CPT/HCPCS: 99205

== ENCOUNTER → 2024-04-24 15:34 | Outpatient (BNVA) | payer MEDICARE, OTHER, SELFPAY | PROVIDERS: PCP Internal Medicine; Referring Provider Internal Medicine; Visit Provider Internal Medicine Nephrology | DX: I10 Essential (primary) hypertension (principal); N17.9 Acute kidney failure, unspecified; R60.0 Localized edema | CPT/HCPCS: 99202 ==

== ENCOUNTER 2024-04-28 14:15 | Outpatient (AMB) | payer MEDICARE, OTHER, SELFPAY ==
[2024-04-28 14:18] VITALS: BP 162/70; PULSE 75; BMI 40.4
--- NOTE | 2024-04-28 14:18 | A.OFFVIS_ITS ---
Vital Signs 04/28/24 14:18 Height 5 ft 3.5 in Weight 231 lb 7.766 oz BMI 40.4 BP 162/70 H Blood Pressure Location Rt brachial Position Sitting Pulse 75 Pulse Source Pulse Oximeter Intake Visit Reasons: f/up echo/ HS Educational Program Director Required: No Executive Staff Assistant: Executive Staff Assistant Present Allergies gentamicin Allergy (Severe, Verified 04/28/24 14:20) Difficulty Breathing Iodinated Contrast Media Allergy (Severe, Verified 04/28/24 14:20) Difficulty Breathing, nausea and vomiting latex [LATEX] Allergy (Severe, Verified 04/28/24 14:20) Anaphylaxis morphine Allergy (Severe, Verified 04/28/24 14:20) Anaphylaxis Penicillins Allergy (Severe, Verified 04/28/24 14:20) stopped breathing as an infant shellfish derived [SHELLFISH DERIVED] Allergy (Severe, Verified 04/28/24 14:20) Difficulty Breathing, swelling vancomycin Allergy (Severe, Verified 04/28/24 14:20) Difficulty Breathing azithromycin Allergy (Unknown, Verified 04/28/24 14:20) Unknown erythromycin base Allergy (Unknown, Verified 04/28/24 14:20) Unknown esomeprazole Allergy (Unknown, Verified 04/28/24 14:20) Unknown pantoprazole Adverse Reaction (Mild, Verified 04/28/24 14:20) Nausea and Vomiting Medication List - Last Reconciled 04/28/24 by MEREDITH Perez amlodipine 10 mg PO DAILY atorvastatin 40 mg PO DAILY clindamycin HCl 300 mg PO Q12H enalapril maleate 20 mg PO BID fenofibrate nanocrystallized 145 mg PO DAILY gabapentin 3 caps PO BEDTIME insulin detemir U-100 (Levemir FlexTouch U-100 Insulin) 86 units subcut TID metoprolol tartrate 100 mg PO BID nystatin (Nyamyc) topical BID oxycodone 1 tab PO QID PRN torsemide 40 mg PO QAM HPI HPI f/up echo/ HS: Details: Felecia is a 69-year-old female past medical history of hypertension, hyperlipidemia, diabetes, morbid obesity, aortic stenosis, chronic heart failure with preserved EF who presents for follow-up after recent echocardiogram. Today she reports that she does have some shortness of breath with physical activity. She notices some heaviness in her chest when she lays down to sleep. She denies any cough or recent illness. She does have leg edema which has been chronic. No chest discomfort during physical activity. No heart palpitations, lightheadedness, presyncope, syncope, falls. 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 Denies any routine exercise. is present. Taking meds as directed. Saw Nephrology on Saturday and a new blood pressure medication will be added, but she has not started as of yet. [facility] [place] Medical History Hypertriglyceridemia Asthma Endometrial cancer Barretts esophagus GERD (gastroesophageal reflux disease) Pancreatic divisum CAD (coronary artery disease) [facility] (current) use of insulin Diabetes type 2, uncontrolled Cervical cancer Other and unspecified hyperlipidemia Essential hypertension Vitamin D deficiency T2DM (type 2 diabetes mellitus) HLD (hyperlipidemia) HTN (hypertension) Pancreatitis Accelerated essential hypertension Embolism Surgical History History of esophagogastroduodenoscopy (EGD) Hx of colonoscopy Hx of removal of cyst Hx of hernia repair Hx of cholecystectomy Hx of endoscopy Hx of hysterectomy Family History Father Diabetes Mother Diabetes Social History Household Members: Spouse Housing: House Do you presently have visiting nurse or other home services: No Alcohol intake: never Comment: sleeping Patient Tobacco Use Status: Former Tobacco user e-Cigarette/Vaping Use: Never Used service: No Current occupational status: employed and unemployed Current occupation: [employer] Review of Systems Const All systems reviewed & are unremarkable except as noted in HPI and below ENT Denies dizziness Card Details: heaviness in chest when she lays down Denies chest pain, Denies chest pain at rest, Denies chest pain with activity, Denies rapid heart rate, Reports pedal edema, Denies edema, Reports leg edema, Denies lightheadedness, Denies palpitations, Denies dyspnea, Reports dyspnea on exertion and Denies orthopnea Resp Denies cough, Denies dyspnea and Reports dyspnea on exertion GI Denies hematochezia and Denies change in stool character Musc Denies abnormal gait, Denies limited range of motion, Denies muscle cramps, Denies muscle weakness, Denies numbness, Denies radiating pain into limb, Denies stiffness and Denies tingling Neuro Denies abnormal gait, Denies dizziness, Denies numbness and Denies tingling Endo Denies palpitations Physical Exam Vital Signs: Last Vital Signs Pulse 75 04/28/24 14:18 BP 162/70 H 04/28/24 14:18 BMI result Body Mass Index 40.4 Const General: cooperative, comfortable and no acute distress Orientation/consciousness: patient oriented x3 Neck Neck: Yes normal visual inspection and Yes no JVD Resp Effort & Inspection: normal respiratory effort Auscultation: clear to auscultation bilaterally, no rales, no rhonchi and no wheezes Cardio Jugular venous distension: no JVD Rate: regular rate Rhythm: regular rhythm Heart sounds: S1 normal heart sound present, S2 normal heart sound present, Murmur heart sound present (3/6 systolic murmur) and no rubs Peripheral pulses: Peripheral pulses 2+ throughout Neuro General: patient oriented x3 Extrem Other: soft pitting edema to lower legs bilaterally Psych Appearance: grossly normal Mental Status: mental status grossly normal Speech and movement: Normal speech and movement present Assessment & Plan Assessment & Plan (1) Chronic heart failure with preserved ejection fraction: Code(s): I50.32 - Chronic diastolic (congestive) heart failure Category: Medical Plan: History of heart failure with preserved EF. Cardiac catheterization was done in 2020 showing normal coronaries. On prior echo she was known to have mild diastolic dysfunction and increased filling pressures. She has been on diuretics and now follows with Nephrology. An echocardiogram was done on 02/21/2024 showing EF 65-70%, mild aortic stenosis, grade 2 diastolic dysfunction, moderate mitral annular calcification. On exam today she does appear to have evidence of fluid overload. She has pitting edema in her legs which has been a chronic finding for her. She is reporting some shortness of breath with activity and orthopnea. She was seen by Nephrology on 04/24/2024. Dr. Garg's note reviewed. He plans to increase her diuretics, add isosorbide and taper and wean off amlodipine. With these plans I will make no med changes at present. She has been instructed to reduce the salt intake in her diet. Recommended home weight monitoring, limiting fluids to less than 48 oz daily. Pathophysiology of diastolic dysfunction reviewed with her. Informed that Amlodipine can be contributing to her leg edema. She admits to being mostly sedentary. Recommend increasing physical activity as tolerated. She is morbidly obese and any weight loss will be beneficial. Cardiology follow-up in 3 months to reassess for heart failure symptoms, blood pressure and med management. ED care if ever needed for symptoms. (2) Edema: Code(s): R60.9 - Edema, unspecified Category: Medical Qualifiers: Edema type: localized Qualified Code(s): R60.0 - Localized edema Plan: As above (3) Non-rheumatic aortic stenosis: Code(s): I35.0 - Nonrheumatic aortic (valve) stenosis Category: Medical Plan: Recent echocardiogram shows mild aortic stenosis with mean gradient 13 mmHg and aortic valve area 1.84 cm sq. Heart murmur is noted on examination. Diagnosis of aortic stenosis discussed with her. Will follow with periodic ECHO. (4) Mitral annular calcification: Code(s): I34.81 - Nonrheumatic mitral (valve) annulus calcification Category: Medical Plan: Moderate mitral annular calcification noted on echocardiogram. Will follow with periodic echoes (5) SOB (shortness of breath) on exertion: Code(s): R06.02 - Shortness of breath Category: Medical Plan: As above (6) Diabetes type 2, uncontrolled: Code(s): E11.65 - Type 2 diabetes mellitus with hyperglycemia Category: Medical Qualifiers: Glycemic state: with hyperglycemia Qualified Code(s): E11.65 - Type 2 diabetes mellitus with hyperglycemia Plan: History of uncontrolled diabetes. Recent labs show hemoglobin A1c 11.2. This is similar to prior values. Spent time discussing the affects of uncontrolled diabetes on her cardiovascular system. She has some shortness of breath with activity but no other symptoms that sound anginal. Her diabetes is being followed by her PCP at present. (7) Other and unspecified hyperlipidemia: Code(s): E78.5 - Hyperlipidemia, unspecified Category: Medical Plan: [place] LDL goal less than 70 in patient with diabetes. Labs done 08/07/2023 shows LDL 63. Continue atorvastatin and fenofibrate. Plan Time spent on chart review, documentation, interview and assessment Coding Level of Care Code Est Pt Level 4 (78751) Diagnoses Chronic heart failure with preserved ejection fraction I50.32 Localized edema R60.0 Edema type: localized Non-rheumatic aortic stenosis I35.0 Mitral annular calcification I34.81 SOB (shortness of breath) on exertion R06.02 Uncontrolled type 2 diabetes mellitus with hyperglycemia E11.65 Glycemic state: with hyperglycemia Other and unspecified hyperlipidemia E78.5 Time Spent (min) 30
== END 2024-04-28 14:55 | disposition home or self-care (01) ==
PROVIDERS: PCP Internal Medicine; Visit Provider Nurse Practitioner Family
DX: I50.32 Chronic diastolic (congestive) heart failure (principal); R60.0 Localized edema; I35.0 Nonrheumatic aortic (valve) stenosis; I34.81 Nonrheumatic mitral (valve) annulus calcification; R06.02 Shortness of breath; E11.65 Type 2 diabetes mellitus with hyperglycemia; E78.5 Hyperlipidemia, unspecified
CPT/HCPCS: 99214

== ENCOUNTER → 2024-04-28 14:15 | Outpatient (BNVA) | payer MEDICARE, OTHER, SELFPAY | PROVIDERS: PCP Internal Medicine; Visit Provider Nurse Practitioner Family | DX: R06.02 Shortness of breath (principal); R60.0 Localized edema; I11.0 Hypertensive heart disease with heart failure; I50.32 Chronic diastolic (congestive) heart failure; I25.10 Atherosclerotic heart disease of native coronary artery without angina pectoris; I35.0 Nonrheumatic aortic (valve) stenosis; I34.81 Nonrheumatic mitral (valve) annulus calcification; E11.65 Type 2 diabetes mellitus with hyperglycemia; E78.5 Hyperlipidemia, unspecified | CPT/HCPCS: 99212 ==

== ENCOUNTER 2024-05-12 15:10 | Outpatient (REF) | payer MEDICARE, OTHER, SELFPAY ==
[2024-05-12 17:09] LABS: Anion Gap 11 (12-20); Blood Urea Nitrogen 13 mg/dL (9-16); Carbon Dioxide 29 mmol/L (22-29); Chloride 103 mmol/L (96-108); Estimated Glomerular Filt Rate > 60; Potassium 4.2 mmol/L (3.3-5.1); Sodium 139 mmol/L (135-145)
[2024-05-12 17:33] LABS: Creatinine Urine 122.87 mg/dL; Protein/Creatinine Ratio, Ur 0.68 (<0.2); Total Protein Urine Random 84 mg/dL (<12)
== END 2024-05-12 15:11 | disposition home or self-care (01) ==
LOC: HO.LAB 15:10
PROVIDERS: PCP Internal Medicine; Visit Provider Internal Medicine Nephrology
DX: N17.9 Acute kidney failure, unspecified (principal); R60.0 Localized edema
CPT/HCPCS: 36415; 80051; 82565; 82570; 84156; 84520

== ENCOUNTER 2024-05-13 13:56 | Outpatient (AMB) | payer MEDICARE, OTHER, SELFPAY ==
--- NOTE | 2024-05-13 14:03 | HO.NEPHOV_ITS ---
Vital Signs 05/13/24 14:13 Height 5 ft 3.5 in Weight 234 lb 4 oz BMI 40.8 BP 184/64 H Blood Pressure Location Rt brachial Position Sitting Pulse 77 Pulse Source Pulse Oximeter Pulse Oximetry (%) 97 Oxygen Delivery Method Room Air Intake Visit Reasons: Proteinuria- Conf Public Events Facilities Rental Manager Required: No Accompanied by: Self / Same As Patient Allergies gentamicin Allergy (Severe, Verified 05/13/24 14:16) Difficulty Breathing Iodinated Contrast Media Allergy (Severe, Verified 05/13/24 14:16) Difficulty Breathing, nausea and vomiting latex [LATEX] Allergy (Severe, Verified 05/13/24 14:16) Anaphylaxis morphine Allergy (Severe, Verified 05/13/24 14:16) Anaphylaxis Penicillins Allergy (Severe, Verified 05/13/24 14:16) stopped breathing as an infant shellfish derived [SHELLFISH DERIVED] Allergy (Severe, Verified 05/13/24 14:16) Difficulty Breathing, swelling vancomycin Allergy (Severe, Verified 05/13/24 14:16) Difficulty Breathing azithromycin Allergy (Unknown, Verified 05/13/24 14:16) Unknown erythromycin base Allergy (Unknown, Verified 05/13/24 14:16) Unknown esomeprazole Allergy (Unknown, Verified 05/13/24 14:16) Unknown pantoprazole Adverse Reaction (Mild, Verified 05/13/24 14:16) Nausea and Vomiting HPI Comments Details: I had the pleasure of seeing Felecia, accompanied by her , in follow up for acute kidney injury. She has been a diabetic for long time. Her blood sugars had been uncontrolled. Her last A1c is over 11. She has history of panc reatitis. She has history of congestive heart failure with a preserved ejection fraction. Couple years ago she had coronary angiogram which showed patent coronary arteries. She has not been very strict with low-sodium diet. She has been having pedal edema, more so in the evenings and in warm humid weather. She does not monitor her blood sugar or blood pressure closely. She has been having generalized aches and pains and has been taking ibuprofen and Aleve on a regular basis for months when she has been taking an MICHAEL inhibitor. Her serum creatinine had gone up to 1.36. She denies any nausea, vomiting, diarrhea, epistaxis, photosensitivity, joint swellings, hematemesis, melena, hematuria, orthostatic symptoms. She had been prescribed Farxiga in the past by her Conveyor Belt Installer but she has not taken it at all as she was worried about its side effects ( pancreatitis). She has no new bone or back pain. She has no history of renal stones. Her edema is better. She denies any chest pain, palpitation or syncope. 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 Diabetes type 2, uncontrolled Cervical cancer Other and unspecified hyperlipidemia Essential hypertension Vitamin D deficiency T2DM (type 2 diabetes mellitus) HLD (hyperlipidemia) HTN (hypertension) Pancreatitis Accelerated essential hypertension Embolism Surgical History History of esophagogastroduodenoscopy (EGD) Hx of colonoscopy Hx of removal of cyst Hx of hernia repair Hx of cholecystectomy Hx of endoscopy Hx of hysterectomy Family History Father Diabetes Mother Diabetes Social History Household Members: Spouse Housing: House Do you presently have visiting nurse or other home services: No Alcohol intake: never Comment: sleeping Patient Tobacco Use Status: Former Tobacco user e-Cigarette/Vaping Use: Never Used service: No Current occupational status: employed and unemployed Current occupation: [employer] Review of Systems Const All systems reviewed & are unremarkable except as noted in HPI and below Physical Exam Vital Signs: Last Vital Signs Pulse 77 05/13/24 14:13 BP 184/64 H 05/13/24 14:13 Pulse Ox 97 05/13/24 14:13 Oxygen Delivery Method Room Air 05/13/24 14:13 BMI result Body Mass Index 40.8 Const General: comfortable and no acute distress Orientation/consciousness: patient oriented x3 HEENT Head: Yes normocephalic Mouth: Normal oral and palatal mucosa present Eyes EOM: EOMs intact bilaterally Neck Neck: Yes supple Resp Auscultation: clear to auscultation bilaterally Cardio Jugular venous distension: no JVD Rate: regular rate GI Palpation (GI): Soft to palpation Auscultation: normal bowel sounds General: Yes no CVA tenderness Back/Spine/Pelvis Back: no CVA tenderness Skin General skin exam: no rashes or lesions noted Neuro General: patient oriented x3 and moves all extremities Extrem General: Yes no pedal edema Results Reviewed Nephrology Results: Hgb 11.2 g/dl (12.0-16.0) L 03/25/24 WBC 7.5 X10*3/uL (4.8-10.8) 03/25/24 Plt Count 307 X10*3/uL (160-400) 03/25/24 Sodium 139 mmol/L (135-145) 05/12/24 Potassium 4.2 mmol/L (3.3-5.1) 05/12/24 Chloride 103 mmol/L (96-108) 05/12/24 Carbon Dioxide 29 mmol/L (22-29) 05/12/24 BUN 13 mg/dL (9-16) 05/12/24 Creatinine 0.92 mg/dL (0.5-1.4) 05/12/24 Calcium 9.5 mg/dL (8.4-10.2) 03/25/24 Urine Protein Trace mg/dL (Neg-Trace) 03/25/24 Urine Creatinine 122.87 mg/dL 05/12/24 Protein/Creatinin Ratio 0.68 (<0.2) H 05/12/24 Assessment & Plan Assessment & Plan (1) HTN (hypertension): Code(s): I10 - Essential (primary) hypertension Category: Medical Qualifiers: Hypertension type: essential hypertension Qualified Code(s): I10 - Essential (primary) hypertension (2) Diabetic nephropathy: Code(s): E11.21 - Type 2 diabetes mellitus with diabetic nephropathy Category: Medical Qualifiers: Diabetes mellitus type: type 2 Qualified Code(s): E11.21 - Type 2 diabetes mellitus with diabetic nephropathy Plan Felecia had CHARLES due to tubular injury which has been resolved . Her urine output is good. She has longstanding diabetic with A1c over 11. She is on MICHAEL- inhibitor. She has been taking NSAID's which had caused altered autoregulation of the kidney which has resolved. 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 She was clinically hypervolemic with orthopnea which has improved. I encouraged to cut back salt in the diet. She is on amlodipine. She has diabetic nephropathy. I started her on isosorbide at the last visit . I plan to increase her diuretics, with time if needed. I ordered follow-up renal functions. I plan to maximize her other medications and wean her off amlodipine given it may be contributing to her edema. I discussed about SGLT2 i which she wants to think it over. I answered all her and her 's questions. Follow-up appointment given Orders: Orders Electrolytes Today E11.21 - Type 2 diabetes mellitus with diabetic nephropathy, I10 - Essential (primary) hypertension Creatinine Today E11.21 - Type 2 diabetes mellitus with diabetic nephropathy, I10 - Essential (primary) hypertension Blood Urea Nitrogen Today E11.21 - Type 2 diabetes mellitus with diabetic nephropathy, I10 - Essential (primary) hypertension Medications: New isosorbide mononitrate ER 30 mg PO DAILY 90 tabs 4RF Coding Level of Care Code Est Pt Level 4 (40501) Diagnoses Essential hypertension I10 Hypertension type: essential hypertension Diabetic nephropathy associated with type 2 diabetes mellitus E11.21 Diabetes mellitus type: type 2
[2024-05-13 14:13] VITALS: BP 184/64; PULSE 77; O2SAT 97; BMI 40.8
== END 2024-05-13 14:38 | disposition home or self-care (01) ==
PROVIDERS: PCP Internal Medicine; Visit Provider Internal Medicine Nephrology
DX: I10 Essential (primary) hypertension (principal); E11.21 Type 2 diabetes mellitus with diabetic nephropathy
CPT/HCPCS: 99214

== ENCOUNTER → 2024-05-13 13:56 | Outpatient (BNVA) | payer MEDICARE, OTHER, SELFPAY | PROVIDERS: PCP Internal Medicine; Visit Provider Internal Medicine Nephrology | DX: I11.0 Hypertensive heart disease with heart failure (principal); I50.9 Heart failure, unspecified; E11.21 Type 2 diabetes mellitus with diabetic nephropathy; R80.9 Proteinuria, unspecified | CPT/HCPCS: 99212 ==

== ENCOUNTER 2024-07-30 15:09 | Outpatient (AMB) | payer MEDICARE, OTHER, SELFPAY ==
--- NOTE | 2024-07-30 15:10 | MHC.OFFVIS ---
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: No Allergies gentamicin Allergy (Severe, Verified 07/30/24 15:13) Difficulty Breathing Iodinated Contrast Media Allergy (Severe, Verified 07/30/24 15:13) Difficulty Breathing, nausea and vomiting latex [LATEX] Allergy (Severe, Verified 07/30/24 15:13) Anaphylaxis morphine Allergy (Severe, Verified 07/30/24 15:13) Anaphylaxis Penicillins Allergy (Severe, Verified 07/30/24 15:13) stopped breathing as an infant shellfish derived [SHELLFISH DERIVED] Allergy (Severe, Verified 07/30/24 15:13) Difficulty Breathing, swelling vancomycin Allergy (Severe, Verified 07/30/24 15:13) Difficulty Breathing azithromycin Allergy (Unknown, Verified 07/30/24 15:13) Unknown erythromycin base Allergy (Unknown, Verified 07/30/24 15:13) Unknown esomeprazole Allergy (Unknown, Verified 07/30/24 15:13) Unknown pantoprazole Adverse Reaction (Mild, Verified 07/30/24 15:13) Nausea and Vomiting Medication List - Last Reconciled 07/30/24 by SANTA PerezC amlodipine 10 mg PO DAILY atorvastatin 40 mg PO DAILY clindamycin HCl 300 mg PO Q12H enalapril maleate 20 mg PO BID fenofibrate nanocrystallized 145 mg PO DAILY gabapentin 3 caps PO BEDTIME hydralazine 50 mg PO TID insulin detemir U-100 (Levemir FlexTouch U-100 Insulin) 86 units subcut TID lansoprazole 30 mg PO BID metoprolol tartrate 100 mg PO BID nystatin (Nyamyc) topical BID oxycodone 1 tab PO QID PRN torsemide 40 mg PO QAM HPI HPI 3 mth f/up: Details: Felecia is a 69-year-old female past medical history of hypertension, hyperlipidemia, diabetes, morbid obesity, aortic stenosis, chronic heart failure with preserved EF who presents for follow-up. Today she reports that she continues to have chronic shortness of breath with physical activity. She does not feel this symptom is worsening with time. She sleeps in a semi reclined position. She continues to have chronic leg edema which at times she says is up to her posterior thighs. No chest discomfort at rest or with activity. No palpitations, lightheadedness, presyncope, syncope, falls. She does not check her blood pressure at home. She had it checked in her PCP office yesterday and it was in the 130s systolic. She did take her medications as directed today. She says she did try the isosorbide for a month and got a headache each day. She then had to stop the medication. She has been taking the hydralazine only twice daily. All other meds RV and taken as directed. She has follow-up with Nephrology on 08/12/2024. 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 Denies any routine exercise. is present. is present. 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 Diabetes type 2, uncontrolled Cervical cancer Other and unspecified hyperlipidemia Essential hypertension Vitamin D deficiency T2DM (type 2 diabetes mellitus) HLD (hyperlipidemia) HTN (hypertension) Pancreatitis Accelerated essential hypertension Embolism Surgical History History of esophagogastroduodenoscopy (EGD) Hx of colonoscopy Hx of removal of cyst Hx of hernia repair Hx of cholecystectomy Hx of endoscopy Hx of hysterectomy Family History Father Diabetes Mother Diabetes Social History Household Members: Spouse Housing: House Do you presently have visiting nurse or other home services: No Alcohol intake: never Comment: sleeping Patient Tobacco Use Status: Former Tobacco user e-Cigarette/Vaping Use: Never Used service: No Current occupational status: employed and unemployed Current occupation: [employer] Review of Systems Const All systems reviewed & are unremarkable except as noted in HPI and below ENT Denies dizziness Card Denies chest pain, Denies chest pain at rest, Denies chest pain with activity, Denies rapid heart rate, Reports pedal edema, Denies edema, Reports leg edema, Denies lightheadedness, Denies palpitations, Denies dyspnea, Reports dyspnea on exertion and Denies orthopnea Resp Denies cough, Denies dyspnea and Reports dyspnea on exertion GI Denies hematochezia and Denies change in stool character Musc Denies abnormal gait, Denies limited range of motion, Denies muscle cramps, Denies muscle weakness, Denies numbness, Denies radiating pain into limb, Denies stiffness and Denies tingling Neuro Denies abnormal gait, Denies dizziness, Denies numbness and Denies tingling Endo Denies palpitations Physical Exam Vital Signs: Last Vital Signs Pulse 74 07/30/24 15:11 BP 192/70 H 07/30/24 15:11 BMI result Body Mass Index 40.1 Const General: cooperative, comfortable and no acute distress Orientation/consciousness: patient oriented x3 Neck Neck: Yes normal visual inspection and Yes no JVD Resp Effort & Inspection: normal respiratory effort Auscultation: clear to auscultation bilaterally, no rales, no rhonchi and no wheezes Cardio Jugular venous distension: no JVD Rate: regular rate Rhythm: regular rhythm Heart sounds: S1 normal heart sound present, S2 normal heart sound present, Murmur heart sound present (3/6 systolic murmur) and no rubs Peripheral pulses: Peripheral pulses 2+ throughout Neuro General: patient oriented x3 Extrem Other: soft pitting edema to lower legs bilaterally Psych Appearance: grossly normal Mental Status: mental status grossly normal Speech and movement: Normal speech and movement present Assessment & Plan Assessment & Plan (1) Uncontrolled hypertension: Code(s): I10 - Essential (primary) hypertension Category: Medical Plan: history of hypertension. Not optimally controlled. Has been following with PCP and Nephrology as well. She was recently started on isosorbide by Dr. Garg and states she took it for 1 month and had to stop due to significant headaches. Headaches improved off the medication. She says blood pressure at her PCP office yesterday was better controlled with systolic in the 130s. Blood pressure today is very elevated in the office 192 over 70. She is currently asymptomatic. She has been taking the hydralazine twice daily. Will have her increase to t.i.d. as it is ordered. At this moment continue torsemide, metoprolol, amlodipine, and enalapril. Will send a message to her line supervisor regarding med adjustments as he does have a plan of care outlined. We may increase hydralazine dose. Increasing diuretic may also be beneficial as she has significant edema. Amlodipine may be adding to her edema and plan is to wean off as able. Labs done 05/12/2024 showed creatinine 0.92, GFR greater than 60. She did have some CHARLES in March with creatinine 1.36, GFR 38. Instructed on light activities while her blood pressure is elevated. Low-salt diet reviewed. Nephrology office visit is 08/12/2024. (2) Chronic heart failure with preserved ejection fraction: Code(s): I50.32 - Chronic diastolic (congestive) heart failure Category: Medical Plan: History of heart failure with preserved EF. Cardiac catheterization was done in 2020 showing normal coronaries. Last echocardiogram was done on 02/21/2024 showing EF 65-70%, mild aortic stenosis, grade 2 diastolic dysfunction, moderate mitral annular calcification. On exam today she does appear fluid overloaded. She has pitting edema in her legs which has been a chronic finding for her. and appears unchanged since her last visit in April. She is reporting some shortness of breath with activity and orthopnea which is not new. She is currently on torsemide 40 mg daily. Reaching out to her line supervisor to discuss med changes. She has been instructed to reduce the salt intake in her diet. Recommended home weight monitoring, limiting fluids to less than 48 oz daily. Pathophysiology of diastolic dysfunction Previously reviewed with her. Informed that Amlodipine can be contributing to her leg edema and our goal will be to wean her off that when blood pressure allows. She admits to being mostly sedentary Which can add to dependent edema. She is morbidly obese and any weight loss will be beneficial. Cardiology follow-up in 2-3 months to reassess for heart failure symptoms. ED care if ever needed for symptoms. (3) Edema: Code(s): R60.9 - Edema, unspecified Category: Medical Qualifiers: Edema type: localized Qualified Code(s): R60.0 - Localized edema Plan: As above (4) Non-rheumatic aortic stenosis: Code(s): I35.0 - Nonrheumatic aortic (valve) stenosis Category: Medical Plan: lastechocardiogram shows mild aortic stenosis with mean gradient 13 mmHg and aortic valve area 1.84 cm sq. Heart murmur is noted on examination. Diagnosis of aortic stenosis discussed with her. Will follow with periodic ECHO. (5) Mitral annular calcification: Code(s): I34.81 - Nonrheumatic mitral (valve) annulus calcification Category: Medical Plan: Moderate mitral annular calcification noted on echocardiogram. Will follow with periodic echoes (6) SOB (shortness of breath) on exertion: Code(s): R06.02 - Shortness of breath Category: Medical Plan: As above (7) Diabetes type 2, uncontrolled: Code(s): E11.65 - Type 2 diabetes mellitus with hyperglycemia Category: Medical Qualifiers: Glycemic state: with hyperglycemia Qualified Code(s): E11.65 - Type 2 diabetes mellitus with hyperglycemia Plan: History of uncontrolled diabetes. Recent labs show hemoglobin A1c 11.2. This is similar to prior values. Previously spent time discussing the affects of uncontrolled diabetes on her cardiovascular system. She has some shortness of breath with activity but no other symptoms that sound anginal. Her diabetes is being followed by her PCP at present. (8) Other and unspecified hyperlipidemia: Code(s): E78.5 - Hyperlipidemia, unspecified Category: Medical Plan: [place] LDL goal less than 70 in patient with diabetes. Labs done 08/07/2023 shows LDL 63. Continue atorvastatin and fenofibrate. she is due for an updated lipid profile. Plan Time spent on chart review, documentation, interview and assessment Coding Level of Care Code Est Pt Level 4 (82607) Complex EM visit Add On G2211 Diagnoses Uncontrolled hypertension I10 Chronic heart failure with preserved ejection fraction I50.32 Localized edema R60.0 Edema type: localized Non-rheumatic aortic stenosis I35.0 Mitral annular calcification I34.81 SOB (shortness of breath) on exertion R06.02 Uncontrolled type 2 diabetes mellitus with hyperglycemia E11.65 Glycemic state: with hyperglycemia Other and unspecified hyperlipidemia E78.5 Time Spent (min) 30
[2024-07-30 15:11] VITALS: BP 192/70; PULSE 74; BMI 40.1
== END 2024-07-30 16:01 | disposition home or self-care (01) ==
PROVIDERS: PCP Internal Medicine; Visit Provider Nurse Practitioner Family
DX: I10 Essential (primary) hypertension (principal); I50.32 Chronic diastolic (congestive) heart failure; R60.0 Localized edema; I35.0 Nonrheumatic aortic (valve) stenosis; I34.81 Nonrheumatic mitral (valve) annulus calcification; R06.02 Shortness of breath; E11.65 Type 2 diabetes mellitus with hyperglycemia; E78.5 Hyperlipidemia, unspecified
CPT/HCPCS: 99214; G2211

== ENCOUNTER → 2024-07-30 15:09 | Outpatient (BNVA) | payer MEDICARE, OTHER, SELFPAY | PROVIDERS: PCP Internal Medicine; Visit Provider Nurse Practitioner Family | DX: I11.0 Hypertensive heart disease with heart failure (principal); I50.32 Chronic diastolic (congestive) heart failure; I35.0 Nonrheumatic aortic (valve) stenosis; R60.0 Localized edema; R06.02 Shortness of breath; E11.65 Type 2 diabetes mellitus with hyperglycemia; E78.5 Hyperlipidemia, unspecified | CPT/HCPCS: 99212 ==

== ENCOUNTER 2024-08-12 13:17 | Outpatient (AMB) | payer MEDICARE, OTHER, SELFPAY ==
--- NOTE | 2024-08-12 13:48 | HO.NEPHOV_ITS ---
Vital Signs 08/12/24 13:49 Height 5 ft 3 in Weight 229 lb 6 oz BMI 40.6 BP 142/72 H Blood Pressure Location Rt brachial Position Sitting Pulse 65 Pulse Source Pulse Oximeter Pulse Oximetry (%) 97 Oxygen Delivery Method Room Air Intake Visit Reasons: 3 mon follow up/ Conf Meat Packager Required: No Accompanied by: Spouse Allergies gentamicin Allergy (Severe, Verified 08/12/24 13:49) Difficulty Breathing Iodinated Contrast Media Allergy (Severe, Verified 08/12/24 13:49) Difficulty Breathing, nausea and vomiting latex [LATEX] Allergy (Severe, Verified 08/12/24 13:49) Anaphylaxis morphine Allergy (Severe, Verified 08/12/24 13:49) Anaphylaxis Penicillins Allergy (Severe, Verified 08/12/24 13:49) stopped breathing as an infant shellfish derived [SHELLFISH DERIVED] Allergy (Severe, Verified 08/12/24 13:49) Difficulty Breathing, swelling vancomycin Allergy (Severe, Verified 08/12/24 13:49) Difficulty Breathing azithromycin Allergy (Unknown, Verified 08/12/24 13:49) Unknown erythromycin base Allergy (Unknown, Verified 08/12/24 13:49) Unknown esomeprazole Allergy (Unknown, Verified 08/12/24 13:49) Unknown pantoprazole Adverse Reaction (Mild, Verified 08/12/24 13:49) Nausea and Vomiting HPI Comments Details: Felecia, accompanied by her , in follow up of hypertension. She has been a diabetic for long time. Her blood sugars had been uncontrolled,better. Her last A1c is over 11. She has history of pancreatitis. She has history of congestive heart failure with a preserved ejection fraction. Couple years ago she had coronary angiogram which showed patent coronary arteries. She has not been very strict with low-sodium diet. She has been having pedal edema, more so in the evenings and in warm humid weather, but better. Her serum creatinine has improved to baseline. She denies any nausea, vomiting, diarrhea, epistaxis, photosensitivity, joint swellings, hematemesis, melena, hematuria, orthostatic symptoms. She had been prescribed Farxiga in the past by her Rigger Supervisor but she has not taken it at all as she was worried about its side effects ( pancreatitis). She has no new bone or back pain. She has no history of renal stones. Her edema is better. She denies any chest pain, palpitation or syncope. 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 Diabetes type 2, uncontrolled Cervical cancer Other and unspecified hyperlipidemia Essential hypertension Vitamin D deficiency T2DM (type 2 diabetes mellitus) HLD (hyperlipidemia) HTN (hypertension) Pancreatitis Accelerated essential hypertension Embolism Surgical History History of esophagogastroduodenoscopy (EGD) Hx of colonoscopy Hx of removal of cyst Hx of hernia repair Hx of cholecystectomy Hx of endoscopy Hx of hysterectomy Family History Father Diabetes Mother Diabetes Social History Household Members: Spouse Housing: House Do you presently have visiting nurse or other home services: No Alcohol intake: never Comment: sleeping Patient Tobacco Use Status: Former Tobacco user e-Cigarette/Vaping Use: Never Used service: No Current occupational status: employed and unemployed Current occupation: [employer] Review of Systems Const All systems reviewed & are unremarkable except as noted in HPI and below Physical Exam Vital Signs: Last Vital Signs Pulse 65 08/12/24 13:49 BP 142/72 H 08/12/24 13:49 Pulse Ox 97 08/12/24 13:49 Oxygen Delivery Method Room Air 08/12/24 13:49 BMI result Body Mass Index 40.6 Const General: comfortable and no acute distress Orientation/consciousness: patient oriented x3 HEENT Head: Yes normocephalic Mouth: Normal oral and palatal mucosa present Eyes EOM: EOMs intact bilaterally Neck Neck: Yes supple Resp Auscultation: clear to auscultation bilaterally Cardio Jugular venous distension: no JVD Rate: regular rate GI Palpation (GI): Soft to palpation Auscultation: normal bowel sounds General: Yes no CVA tenderness Back/Spine/Pelvis Back: no CVA tenderness Skin General skin exam: no rashes or lesions noted Neuro General: patient oriented x3 and moves all extremities Results Reviewed Nephrology Results: Hgb 11.2 g/dl (12.0-16.0) L 03/25/24 WBC 7.5 X10*3/uL (4.8-10.8) 03/25/24 Plt Count 307 X10*3/uL (160-400) 03/25/24 Sodium 139 mmol/L (135-145) 05/12/24 Potassium 4.2 mmol/L (3.3-5.1) 05/12/24 Chloride 103 mmol/L (96-108) 05/12/24 Carbon Dioxide 29 mmol/L (22-29) 05/12/24 BUN 13 mg/dL (9-16) 05/12/24 Creatinine 0.92 mg/dL (0.5-1.4) 05/12/24 Calcium 9.5 mg/dL (8.4-10.2) 03/25/24 Urine Protein Trace mg/dL (Neg-Trace) 03/25/24 Urine Creatinine 122.87 mg/dL 05/12/24 Protein/Creatinin Ratio 0.68 (<0.2) H 05/12/24 Assessment & Plan Assessment & Plan (1) Diabetic nephropathy: Code(s): E11.21 - Type 2 diabetes mellitus with diabetic nephropathy Category: Medical Qualifiers: Diabetes mellitus type: type 2 Qualified Code(s): E11.21 - Type 2 diabetes mellitus with diabetic nephropathy (2) HTN (hypertension): Code(s): I10 - Essential (primary) hypertension Category: Medical Qualifiers: Hypertension type: essential hypertension Qualified Code(s): I10 - Essential (primary) hypertension Plan Felecia had CHARLES due to tubular injury which has been resolved . Her urine output is good. She has longstanding diabetic with A1c over 11. She is on MICHAEL- inhibitor. She has been taking NSAID's which had caused altered autoregulation of the kidney which has resolved. 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 She is clinically hypervolemic with orthopnea which has improved. I encouraged to cut back salt in the diet. She is on amlodipine. She has diabetic nephropathy. I plan to increase her diuretics, with time if needed. I ordered follow-up renal functions. I plan to maximize her other medications and wean her off amlodipine given it may be contributing to her edema. I discussed about SGLT2 i which she wants to think it over. I answered all her and her 's questions. Follow-up appointment given Orders: Orders Creatinine 4 Months E11.21 - Type 2 diabetes mellitus with diabetic ne phropathy, I10 - Essential (primary) hypertension Blood Urea Nitrogen 4 Months E11. - Type 2 diabetes mellitus with diabetic nephropathy, I10 - Essential (primary) hypertension Electrolytes 4 Months E11. - Type 2 diabetes mellitus with diabetic nephropathy, I10 - Essential (primary) hypertension Medications: Changed From hydralazine dose increased 100 mg PO TID 30 days 90 tabs 5RF To hydralazine dose increased 50 mg PO TID 30 days 90 tabs 5RF Coding Level of Care Code Est Pt Level 4 (10413) Diagnoses Diabetic nephropathy associated with type 2 diabetes mellitus Diabetes mellitus type: type 2 Essential hypertension I10 Hypertension type: essential hypertension
[2024-08-12 13:49] VITALS: BP 142/72; PULSE 65; O2SAT 97; BMI 40.6
--- OUTSIDE RECORDS SUMMARY | 2024-08-18 19:27 | XMS_ITS ---
Author Organization [facility] Address [address] [place] [id number] Care Team Providers Care Senior Category Manager Name Role Phone Armando Holloway MD Primary Care Provider Valeriano Dickerson [phone] REASON FOR VISIT on voicemail refill MEDICATIONS Medication SIG (Take, Route, Fr equency, Duration) Notes Start Date End Date Status Lansoprazole 30 MG 1 Orally Twice a day for 90 days 08/15/2023 Active Encounters Encounter Location Date Provider Diagnosis [facility] [address] [place] [address] [place] [id number] 08/13/2023 Valeriano Corona PLAN OF TREATMENT Medication Medication Name Sig Start Date Stop Date Notes Lansoprazole 30 MG 1 Orally Twice a day for 90 days 2022 Next Appt Details Provider Name:Valeriano Corona , 10/27/2024 10:50:00 AM, [address] [place] [address], [address], [place], [phone],
--- OUTSIDE RECORDS SUMMARY | 2024-08-18 19:27 | XMS_ITS ---
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) Active confirmed Mcdermott esophag us (507857629) Problem Gastritis (K29.70) Active confirmed Gastritis (3085167) Problem Esophageal reflux disease (K21.9) Active confirmed Gastroesopha geal reflux disease (093960848) Encounters Encounter Location Date Provider Diagnosis [facility] Outpatient [address] [place] [phone] 07/03/2023 Valeriano Corona Encounter for scre ening colonoscopy Z12.11 ; Family history of colon cancer Z80.0 ; Diverticulosis of large intestine without perforation or abscess without bleeding K57.30 ; Other hemorrhoids K64.8 ; Mcdermott esophagus K22.70 ; Hiatal hernia K44.9 ; Gastritis K29.70 and Esophageal reflux disease K21.9 ASSESSMENTS Encounter Date Diagnosis Assessment Notes Treatment Notes Treatment Clinical Notes 07/03/2023 Encounter for screening colonoscopy (ICD-10 - Z12.11) 07/03/2023 Family history of colon cancer (ICD-10 - Z80.0) 07/03/2023 Diverticulosis of large intestine without perforation or abscess without bleeding (ICD-10 - K57.30) 07/03/2023 Other hemorrhoids (ICD-10 - K64.8) 07/03/2023 Mcdermott esophagus (ICD-10 - K22.70) 07/03/2023 Hiatal hernia (ICD-1 0 - K44.9) 07/03/2023 Gastritis (ICD-10 - K29.70) 07/03/2023 Esophageal reflux disease (ICD-10 - K21.9) PLAN OF TREATMENT Next Appt Details Provider Name:Valeriano Yamileth Corona , 10/27/2024 10:50:00 AM, [address] [place] [address], [address], [place], [phone],
--- OUTSIDE RECORDS SUMMARY | 2024-08-18 19:27 | XMS_ITS | Patient Health Record ---
[facility] Address [address] [place] [address] Care Team Providers Care Veterinary Surgery Technologist Name Role Phone Armando Holloway MD Primary Care Provider Saira Carranza Unavailable [phone] Devan Kirkpatrick Unavailable [phone] Allergies Allergen (clinical drug ingredient) Drug/Non Drug Allergy documented on EMR Reaction Allergy Type Onset Date Status Adhesive Unknown Allergy Active erythromycin Erythromycin Unknown Drug Allergy A ctive Iodine Unknown Drug Allergy Active Latex Latex Unknown Allergy Active morphine Morphine Unknown Drug Allergy Active Penicillin Unknown Drug Allergy Active Shellfish (FN) Shellfish-derived Products Unknown Drug Allergy Active Results Component Value Reference Range Notes HEMOGLOBIN A1C (GLYCOHEMOGLO BIN) Reviewed date:03/25/2024 12:12:17 PM Interpretation: Performing Lab: Notes/Report: HEMOGLOBIN A1C (HH) 11.0 Reason For Referral No Information Medications Medication SIG (Take, Route, Frequency, Duration) Notes Start Date End Date Status Albuterol Sulfate (2.5 MG/3ML) 0.083% 3 ml as needed Inhalation every 6 hrs Active Levemir Active amLODIPine Besylate 10 MG 1 tablet Orally Once a day for 30 day(s) Active Extra Depth Diabetic Shoes with 3 Pair Custom heat-molded multi-density innersoles for 1 year Dx: A ctive Prevacid 30 MG 1 capsule before a m eal Orally Once a day for 30 day(s) Active Clotrimazole-Betamethaso ne 1-0.05 % 1 application to affected area Externally Twice a day to affected areas on feet for 30 days Active Neurontin 300 MG 1 capsule Orally Onc e a day for 30 day(s) Active Gabapentin Active Tricor 145 MG 1 tablet Orally Once a day for 30 day(s) Active oxyCODONE HCl 10 MG 1 tablet as needed Orally every 6 hrs Active hydrALAZINE HCl 50 MG 1 tablet with food Orally Three times a day for 30 day(s) Active HumaLOG 100 UNIT/ML as directed Subcutaneous Not-Taking Enalapril Maleate 20 MG 1 tablet Orally Once a day for 30 day(s) Active Furosemide 40 MG 1 tablet Orally Once a day for 30 day(s) Not-Taking Lipitor 40 MG 1 tablet Orally Once a day for 30 day(s) Active Lantus Active Torsemide 20 MG Oral for 77 Days Active Immunizations Vaccine Route Administration Date Status Comme nts COVID-19 [facility] [employer] Mi[facility]/James Unknown 08/17/2021 R efused Influenza Unknown 08/17/2021 Refused Social History Tobacco Use: Social History Observation Description Date Details (start date - stop date) Former Smoker NA - NA Tobacco Use/Smoking Question Answer Notes Are you a: former smoker Additional Findings: Tobacco Non-User Current no n-smoker Alcohol Screen Question Answer Notes Did you have a drink containing alcohol in the p ast year? No Points 0 Interpretation Negative Tobacco use other than smoking: Question Answer Notes Are you an other tobacco user? No Problems Problem Type SNOMED Code ICD Code Onset Dates Problem Status W/U Status Risk Notes Problem Polyneuropathy due to type 2 diabetes mellitus (411199918) Type 2 diabetes mellitus with diabetic polyneuropathy (E11.42) Active confirmed Problem Polyneuropathy due to diabetes mellitus type I (853139876) Type 1 diabetes mellitus with diabetic polyneuropathy (E10.42) Active confirmed Problem 081338118 Lymphedema (I89.0) Active confirmed Vital Signs Blood pressure diastolic 70 mm Hg 03/25/2024 Height 5ft2in in 03/25/2024 Blood pressure systolic 190 mm Hg 03/25/2024 Weight 215 lbs 03/25/2024 BMI 39.32 kg/m2 03/25/2024 Encounters Encounter Location Date Provider Diagnosis [facility] [address] [place] [address] 03/25/2024 Devan Kirkpatrick Type 1 diabetes mellitus with diabetic polyneuropathy E10.42 ; Tinea unguium B35.1 ; Skin disease L98.9 ; Pain in right toe(s) M79.674 ; Pain in left toe(s) M79.675 ; Tinea pedis B35.3 ; Ingrowing nail L60.0 and Lymphedema I89.0 [facility] [address] [place] [address] 12/18/2023 [facility] [address] 03/25/2024 Devan Iota Assessments Encounter Date Diagnosis (ICD Code) Assessment Notes Treatment Notes Treatment Clinical Notes Section Notes 03/25/2024 Type 1 diabetes mellitus with diabetic polyneuropathy (ICD-10 - E10.42) 03/25/2024 Tinea unguium (ICD-10 - B35.1) 03/25/2024 Skin disease (ICD-10 - L98.9) 03/25/2024 Pain in right toe(s) (ICD-10 - M79.674) 03/25/2024 Pain in left toe(s) (ICD-10 - M79.675) 03/25/2024 Tinea pedis (ICD-10 - B35.3) 03/25/2024 Ingrowing nail (ICD-10 - L60.0) 03/25/2024 Lymphedema (ICD-10 - I89.0) Plan Of Treatment Pending Test Test Name Order Date X ray : Foot, left 3V 12/19/2022 [id number] SKIN LESIONS, 2 TO 4 08/17/20 21 [id number] SKIN LESIONS, 2 TO 4 12/07/19 22 [id number] DYSTROPHIC NAILS ANY # [id number] DYSTROPHIC NAILS ANY # Insurance Providers Payer Name Payer Address Payer Phone Subscriber Number Group Number Insured Name Patient Relationship to Insured Coverage Start Date Coverage End Date [employer] [address] [place] [address] [id number] Felecia Self Self - patient is the [facility] [address] [facility] [place] [address] [id number] Felecia Self Self - patient is the insured Medical (General) History Medical History History ICD Code Anemia asthma Back,Hip,and Knee pain Broken bones Cancer covid-19 High blood pressure Reflux ( GERD) Stomach ulcer Measles Chicken pox type II diabetes Surgical History Surgery Date(Month/Year) hysterectomy, vaginal endoscopic spinetoplast of major papila gall bladder inguinal hernia repair cyst removal-uterus Hospitalization History Reason Date(Month/Year) [facility] pancreatitis 6 days 11/25/21 [facility] day stay 07/2021
--- OUTSIDE RECORDS SUMMARY | 2024-08-18 19:27 | XMS_ITS ---
[facility] Address [address] [address] Care Team Providers Care Product Development Worker Name Role Phone Armando Holloway MD Primary Care Provider UnavailSaira Swann Unavailable [phone] Devan Kirkpatrick Unavailable [phone] Allergies Allergen (clinical drug ingredient) Drug/Non Drug Allergy documented on EMR Reaction Allergy Type Onset Date Status Adhesive Unknown Allergy Active erythromycin Erythromycin Unknown Drug Allergy A ctive Iodine Unknown Drug Allergy Active Latex Latex Unknown Allergy Active morphine Morphine Unknown Drug Allergy Active Penicillin Unknown Drug Allergy Active Shellfish (FN) Shellfish-derived Products Unknown Drug Allergy Active REASON FOR VISIT Painful thick toenails which are aggrevated by shoes and causes difficulty standing/walking Medications Medication SIG (Take, Route, Frequency, Duration) Notes Start Date End Date Status Torsemide 20 MG Oral for 77 Days Active Tricor 145 MG 1 tablet Orally Once a day for 30 day(s) Active oxyCODONE HCl 10 MG 1 tablet as needed Orally every 6 hrs Active HumaLOG 100 UNIT/ML as directed Subcutaneous Not-Taking Furosemide 40 MG 1 tablet Orally Once a day for 30 day(s) Not-Taking Prevacid 30 MG 1 capsule before a m eal Orally Once a day for 30 day(s) Active Neurontin 300 MG 1 capsule Orally Onc e a day for 30 day(s) Active hydrALAZINE HCl 50 MG 1 tablet with food Orally Three times a day for 30 day(s) Active Lipitor 40 MG 1 tablet Orally Once a day for 30 day(s) Active Lantus Active Albuterol Sulfate (2.5 MG/3ML) 0.083% 3 ml as needed Inhalation every 6 hrs Active amLODIPine Besylate 10 MG 1 tablet Orally Once a day for 30 day(s) Active Extra Depth Diabetic Shoes with 3 Pair Custom heat-molded multi-density innersoles for 1 year Dx: A ctive Clotrimazole-Betamethaso ne 1-0.05 % 1 application to affected area Externally Twice a day to affected areas on feet for 30 days Active Enalapril Maleate 20 MG 1 tablet Orally Once a day for 30 day(s) Active Levemir Active Gabapentin Active Social History Tobacco Use: Social History Observation Description Date Details (start date - stop date) Former Smoker NA - NA Tobacco Use/Smoking Question Answer Notes Are you a: former smoker Additional Findings: Tobacco Non-User Current no n-smoker Tobacco use other than smoking: Question Answer Notes Are you an other tobacco user? No Vital Signs Height 5ft2in in 03/25/2024 Weight 215 lbs 03/25/2024 BMI 39.32 kg/m2 03/25/2024 Blood pressure systolic 190 mm Hg 03/25/20 24 Blood pressure diastolic 70 mm Hg 024 Encounters Encounter Location Date Provider Diagnosis [facility] Rena Lara [address] [place] [address] 03/25/2024 Devan Kirkpatrick Type 1 diabetes mellitus with diabetic polyneuropathy E10.42 ; Tinea unguium B35.1 ; Skin disease L98.9 ; Pain in right toe(s) M79.674 ; Pain in left toe(s) M79.675 ; Tinea pedis B35.3 ; Ingrowing nail L60.0 and Lymphedema I89.0 Assessments Encounter Date Diagnosis (ICD Code) Assessment [...] Lymphedema (ICD-10 - I89.0) Plan Of Treatment Medication Medication Name Sig Start Date Stop Date Notes Extra Depth Diabetic Shoes with 3 Pair Custom heat-molded multi-density innersoles for 1 year Dx: Clotrimazole-Betamethasone 1-0.05 % 1 application to affected area Externally Twice a day to affected areas on feet for 30 days Next Appt Details Follow Up: 1 Year, Reason: Procedure Notes * Category Sub-Category Detail Notes Keratoma Treatment Parring or Cutting o f Benign Hyperkeratotic Lesion(s) 41670 (2-4 Lesions) - The Benign hyperkeratotic lesions, [...] as necessary. Patient chooses, no pharmaceutical tx (51259) Nail Reduction Nail Reduction Trimming of dyst rophic nails performed to reduce/remove overall nail length and girth, by manual and electrical means with use of a nail nipper and/or dremel, to more viable healthy nail plate or bed tissue 6-10 (G0127) Progress Notes * Gavin SOLIMANOB:1955 ( 68 yo F)Acc No.[id number]:03/25/2024 Progress Note Patient:?Felecia Soliman Provider:?Devan Kirkpatrick DPM :1955???Age:68 Y???Sex:Female D ate:03/25/2024 Address:[address] [place], [place] [id number] Pcp:Armando Holloway MD Subjective: * Chief Complaints: * ???Painful thick toenails wh ich are aggrevated by shoes and causes difficulty standing/walking * HPI: ???At Risk footcare:?Pt States Last PCP Visit:?Date?02/10/2024 ???Toe pain:?Nature:?throbbing, aching.?Location:?2nd toe, 3rd toe, Left foot.?Duration:?several months.?Onset/Cause:?states traumatic (dropped can on toes?).?Course:?unresolved.?Aggrevated by:?shoes, any pressure.?Treatments:?none.?Severity/Quality:?moderate.?Foot Pain:?Nature:?cold, burning.?Location:?B/L, Forefoot, Midfoot.?Duration:?several months.?Onset:?dpn.?Course:?worse.? * ROS:?General/Constitutional:?Nausea?denies.?Vomiting?denies.?Hunger Thirst?denies.?Loss appetite?denies.?Chills?denies.?Fatigue?denies.?Fever?denies.?Night Sweats?denies.?Unexplained weight loss?denies.?Unexplained weight gain?denies.?HEENTM:?Dentures?denies.?Dizziness?denies.?Glasses/contacts?admits.?Retinopathy?de nies.?Blurred/double vision?denies.?TMJ?denies.?Discharge/drainage?denies.?Implants?denies.?Sore throat?denies.?Dental implants?denies.?Hard of hearing ?denies.?Difficulty chewing/swallowing/speaking?denies.?Nose bleeds?denies.?Sore mouth?denies.?Respiratory:?On Oxygen?denies.?Pneumonia/pleurisy?denies.?Bronchitis?denies.?Emphysema?denies.?C oughing?admits.?Cough blood?denies.?Shortness of breath?admits.?Wheezing?denies.?Cardiovascular:?Pacemaker?denies.?MVP?denies.?WPW?denies.?CHF?denies.?Heart attack?denies.?Septal defect?denies.?Rapid beat?denies.?Chest pain ?denies.?Atrial Fib.?denies.?Murmur/Palpitations?denies.?Gastrointestinal:?Hemorrhoids?admits.?Stomach/Abdominal pain?admits.?Dark blood stool?denies.?Irritable bowel ?denies.?Constipation?denies.?Diarrhea?denies.?Hematology:?Swelling?admits.?Clots?Admits.?Varicose Veins?admits.?Bruising?denies.?Bleeding problem?denies.?Genitourinary:?Blood urine?denies.?Frequent/Painfu/urination/bladder control?denies.?Kidney stones?denies.?Infection (UTI)?denies.?Nephropathy?denies.?sex trans dis (STD)?denies.?Prostate?denies.?Musculoskeletal:?Hammertoes?denies.?Bunions?denies.?Back Pain?admits.?Muscle Cramps/ Resting?admits.?Muscle cramps / walking?denies.?Generalized aches and pains?admits.?Weakness?denies.?Integ.:?Knowles?denies.?Scars?denies.?Corns/calluses?denies.?Ingrown nails?admits.?Painful nails?denies.?Open Sores?denies.?Rashes?denies.?Neurologic:?Difficulty sleeping?denies.?Brain disorder?denies.?Numbness?denies.?Balance trouble?denies.?Confusion?denies.?Fainting/blackouts?denies.?Tingling?admits.?Tr emors?denies.? * Medical History:? * Surgical History:?hysterecto my, vaginal endoscopic spinetoplast of major papila gall bladder inguinal hernia repair cyst removal-uterus * Hospitalization/Major Diagno stic Procedure:?[facility]-cellulitis 5 day stay 07/2021[facility] pancreatitis 6 days 11/25/21 * Family History:?Mother: dece ased, foot problems, diagnosed with Diabetic - NIDDM, Other malignant neoplasm of unspecified site.?Father: , kidney/liver disease, diagnosed with Family history of arthritis, Diabetic - NIDDM, Unspecified essential hypertension, Unspecified heart disease, Other malignant neoplasm of unspecified site.?Paternal Grand Mother: diagnosed with Family history of arthritis, Unspecified essential hypertension, Unspecified heart disease.?Siblings: diagnosed with Diabetic - NIDDM, Other malignant neoplasm of unspecified site.? * Social History:?Tobacco Use:?Tobacco Use/Smoking?Are you a:?former smoker ?Additional Findings: Tobacco Non-User?Current non-smoker ?Tobacco use other than smoking?Are you an other tobacco user??No ???Miscellaneous:?Caffeine: yes, 1-2 cups per day. ?Children: yes, 4. ?Exercise: yes, walking, occasional. ?Marital status: . 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 * Medications:?TakingGabapenti n Levemir Albuterol Sulfate (2.5 MG/3ML) 0.083% Nebulization Solution 3 ml as needed Inhalation every 6 hrsamLODIPine Besylate 10 MG Tablet 1 tablet Orally Once a dayEnalapril Maleate 20 MG Tablet 1 tablet Orally Once a dayhydrALAZINE HCl 50 MG Tablet 1 tablet with food Orally Three times a dayLantus Lipitor 40 MG Tablet 1 tablet Orally Once a dayNeurontin 300 MG Capsule 1 capsule Orally Once a dayPrevacid 30 MG Capsule Delayed Release 1 capsule before a meal Orally Once a dayoxyCODONE HCl 10 MG Tablet 1 tablet as needed Orally every 6 hrsTricor 145 MG Tablet 1 tablet Orally Once a dayClotrimazole-Betamethasone 1- 0.05 % Cream 1 application to affected area Externally Twice a day to affected areas on feetExtra Depth Diabetic Shoes with 3 Pair Custom heat-molded multi-density innersoles for 1 year Dx:Torsemide 20 MG Tablet Oral Taking Gabapentin Taking Levemir Taking Albuterol Sulfate (2.5 MG/3ML) 0.083% Nebulization Solution 3 ml as needed Inhalation every 6 hrsTaking amLODIPine Besylate 10 MG Tablet 1 tablet Orally Once a dayTaking Enalapril Maleate 20 MG Tablet 1 tablet Orally Once a dayTaking hydrALAZINE HCl 50 MG Tablet 1 tablet with food Orally Three times a dayTaking Lantus Taking Lipitor 40 MG Tablet 1 tablet Orally Once a dayTaking Neurontin 300 MG Capsule 1 capsule Orally Once a dayTaking Prevacid 30 MG Capsule Delayed Release 1 capsule before a meal Orally Once a dayTaking oxyCODONE HCl 10 MG Tablet 1 tablet as needed Orally every 6 hrsTaking Tricor 145 MG Tablet 1 tablet Orally Once a dayTaking Clotrimazole-Betamethasone 1-0.05 % Cream 1 application to affected area Externally Twice a day to affected areas on feetTaking Extra Depth Diabetic Shoes with 3 Pair Custom heat-molded multi-density innersoles for 1 year Dx:Taking Torsemide 20 MG Tablet Oral Not-Taking/PRNFurosemide 40 MG Tablet 1 tablet Orally Once a dayHumaLOG 100 UNIT/ML Solution as directed Subcutaneous Medication List reviewed and reconciled with the patientNot-Taking/PRN Furosemide 40 MG Tablet 1 tablet Orally Once a dayNot-Taking/PRN HumaLOG 100 UNIT/ML Solution as directed Subcutaneous Medication List reviewed and reconciled with the patient * Allergies:?PenicillinErythro mycinMorphineAdhesiveShellfish-derived ProductsLatexIodineyes[Allergies Verified] Objective: * Vitals:?Ht: 5ft2in, Wt:215, BMI:39.32, Shoe size: 9.5-10, BP:190/70 mm Hg, BS: 159, Ht-cm: 157.48 cm, Wt-k.52 kg. * ???Past Orders: ???Lab:HEMOGLOBIN A1C (GLYCO HEMOGLOBIN) (Order Date - 02/10/2024) (Collection Date - 02/10/2024) ? Value Reference Range ?HEMOGLOBIN A1C (HH) 11.0 * Examination: ???Neurological: ?SENSORY:?Neurological exam demonstrates, reduced light touch sensation, 5.07 monofilament test performed at plantar aspects of 5 varied sites per foot shows sensation, reduced , B/L, Neurological exam demonstrates pop left 2,3 toes.?Vascular: ?DP PULSES:? 09/12, B/L.?PT PULSES:? 09/12, B/L.?CAPILLARY FILL TIME:?3 secs. per digit. B/L.?SKIN TEMPERTURE GRADIENT OF THE LOWER EXTERMITIES:?normal, B/L.?PIGMENTATION:? resolving cellulitis right leg.?EDEMA:? /, pitting, B/L, Feet, Ankle(s), Leg(s).?Nails: ?NAILS are:?Elongated, overgrown, dystrophic, lytic, greater than 3mm thick, discolored and friable with crumbly malodorous subungual debris, with dull to no pain on palpation due to neuropathy, T1, T6.?Dermatologic: ?SKIN FINDINGS:? Skin exam reveals Keratotic lesion(s) located at, Plantar, Heel(s), B/L .?General Examination: ?GENERAL APPEARANCE:?pleasant, alert, well nourished, well developed, well hydrated, with good attention to hygene/body habitus, and in no acute distress.?ORIENTED:?person,place, and time.?FOOT EXAM:?Orthopedic: ?MUSCLE STRENGTH:?5/5 all groups in a symmetrical fashion , B/L.?DIGITAL DEFORMITIES:? Digital contracture nafisa 5th toe.?Ingrown Nail: ?INSPECTION:? Reveals nail incurvation, dull pain on palpation due to neuropathy, groove hypertrophy, Bilateral nail borders, T1, T6.?Ophthalmology Referral: ?DIABETES EYE EXAM?X-Rays - IMAGING REPORT: ?Views:? 3 views of Foot, LEFT.?Digits:? show assymetrical joint space narrowing at the PIPJ consistent with clinical finding of hammertoe deformity , show enlarged/hypertrophied phalangial head(s) consistent for clinical finding of hammertoe deformity , 2nd digit thru 5th digit.?Fracture:? Negative fractures identified.? Assessment: * Assessment: 1.?Type 1 diabetes mellitus with diabetic polyneuropathy - E10.42?2.?Tinea unguium - B35.1?3.?Skin disease - L98.9 (Primary)?4.?Pain in right toe(s) - M79.674?5.?Pain in left toe(s) - M79.675?6.?Tinea pedis - B35.3?7.?Ingrowing nail - L60.0?8.?Lymphedema - I89.0? Plan: * Treatment: 2.?Tinea pedis? Start Clotrimazole-Betamethasone Cream, 1-0.05 %, 1 application to affected area, Externally, Twice a day to affected areas on feet, 30 days, 60, Refills 3.?? * Procedures:?Debride Nails 1-5:?Procedure:?Nail debridement performed extensively to reduce/remove overall nail length and girth, subungual debris, and necrotic tissue, by manual and electrical means by use of a nail nipper and/or dremel, to more viable healthy nail plate or bed tissue 1-5. Silver nitrate used for any petechial bleeding as necessary. Patient chooses, no pharmaceutical tx (39338).?Keratoma Treatment:?Parring or Cutting of Benign Hyperkeratotic Lesion(s)?58238 (2-4 Lesions) - The Benign hyperkeratotic lesions, as described above were pared, and/or cut utilizing a sterile #15 blade, tissue nippers, and/or dremel.?Nail Reduction:?Nail Reduction?Trimming of dystrophic nails performed to reduce/remove overall nail length and girth, by manual and electrical means with use of a nail nipper and/or dremel, to more viable healthy nail plate or bed tissue 6-10 (G0127).? * Procedure Codes:?77850 DEBRI DE NAIL, 1-5, Modifiers: XS 05947 TRIM SKIN LESIONS, 2 TO 4, Modifiers: XS G0127 TRIMMING DYSTROPHIC NAILS ANY #, Modifiers: XS * Preventive Medicine:? ??Counseling:?Discussion:?-14: Office or other outpatient visit for the evaluation and management of an established patient. When using time for code selection, 30-39 min of total time was spent on the day of the encounter interpreting the data and educating the patient as to the nature of their condition, treatment options available according to their individual PMH, meds, allergies, and overall health/living conditions, as well as any potential risks or complications that may occur from a failure to adhere to, and participate in, the recommended course of therapy. The discussion included a complete verbal, and/or written explanation of the examination results, any x-rays taken, the proposed diagnosis, and outline of the treatment plan. A schedule for future care needs was also explained. The patient verbalized an understanding of the instructions at this time and agreed to be an active participant in their treatment. If the patient should think of any questions or concerns after the visit, I have encouraged the patient to call the office.?Consult:?The Pt. was counseled on the diagnosis, treatment options, and the need for a, Vascular Consult due to lymphedema nafisa feet and legs--pt to call [facility] for appt.?Diabetic Footcare:?The Pt. was counseled in great detail on their muscoloskeletal foot and toe deformities which coincide with the dermatological presentations visualized on exam. We discussed how their deformities put the integrity of their feet at risk for potential pedal complications which makes the accomidative diabetic shoes and cutomizable inserts medically necessary. We discussed the different shoe and insert treatment types and options, as well as the important advantages for adhering to regularly wearing these accomidative devices daily. The patient was made aware of the fact that a failure to abide by these recommedations may be deleterious to their foot health as they are able to prevent many pedal complications such as skin irritation, skin ulceration, infection, and even loss of toe/foot/leg/or life. Time was also spent with the patient dispensing and discussing proper diabetic footcare techniques including daily skin moisturization, daily foot inspection for any interruption in skin integrity including open lesions, or sign of infection such as redness/malodor/drainage/swelling. Also discussed and recommended were procedures regarding daily shoe inspection for the presence of internal foreign bodies as well as any visualized irregular shoe or insert wear. Patient questions re: shoes, inserts, and self foot inspections were answered to their satisfaction as the patient verbally confirmed a full understanding of the above information. A Rx: Extra Depth Diabetic Shoes with 3 pair of custom heat-molded inserts was dispensed, A thorough inspection of the patient's Rxed shoegear and inserts was performed and their findings communicated. We reviewed the many important medical advantages for adhering to regularly wearing these toe/foot accommidative devices daily. We reviewed the fact that a failure to implement these recommedations may be deleterious to the patient's foot health as there would be an inability to prevent many pedal complications. Such may lead to skin irritation, skin ulceration, infection, and even loss of toe/foot/leg/or their life. Time was also spent reviewing proper diabetic footcare practices including daily skin moisturization, daily foot inspection for any interruption in skin integrity, open lesions, or sign of infection such as redness/malodor/drainage/swelling. Also recommended was purposeful regular shoe inspection for the presence of internal foreign bodies as well as irreguklar shoe and insert wear. Patient questions re: shoes, inserts, and self foot inspections were answered to their satisfaction as the patient verbally confirmed a full understanding of the above information, Rx: Extra Depth Diabetic Shoes with 3 pair of custom heat-molded inserts.?P.R.I.C.E.:?The Pt. was counseled on P.R.I.C.E./NSAIDS (if well tolerated) to help speed recovery from their painful condition.? * Follow Up:?1 Year * Images: * Sign off status: Completed true * Provider:?Devan Kirkpatrick DPM Date:? 024 Generated for Clemencia guadalupe/Hunter/eTransmitting on:?08/18/2024 07:27 PM EST History and Physical Notes * HPI (History of Present Illness) Category Sub-Category Detail Notes Category Not es Toe pain Nature: throbbing, aching Location: 2nd toe, 3rd toe, Le ft foot Duration: several months Onset/Cause: states traumatic (dr diallo can on toes ) Course: unresolved Aggravated by: shoes, any pressure Treatments: none Severity/Quality: moderate At Risk footcare Pt States Last PCP Visit: Date: Foot Pain Nature: cold, burning Location: B/L, Forefoot, Midfo ot Duration: several months Onset: dpn Course: worse Examination Category Sub-Category Detail Notes Category Not [...] Visual exam of foot performed:: Yes Date: 03/25/2024 Sensory testing performed:: sensations d iminished Pedal pulse taking performed:: 1+ ORIENTED: person,place, and ti [place] Ophthalmology Referral DIABETES EYE EXAM Diabetic Retinopa thy Screening:: No Findings of Diabetic Eye Exam:: retinopa thy Vascular DP PULSES(B): 1/4, B/L PT PULSES(B): 1/4, B/L CAPILLARY FILL TIME: 3 secs. per digit. B/L TEMPERTURE GRADIENT(C): normal, B/L EDEMA(C): 3/4, pitting, B/L, F eet, Ankle(s), Leg(s) [...]
--- OUTSIDE RECORDS SUMMARY | 2024-08-18 19:27 | XMS_ITS ---
Author Organization [facility] Address [address] [place] [address] Care Team Providers Care Life Science Technical Officer Name Role Phone Armando Holloway MD Primary Care Provider UnavailSaira Swann Unavailable [phone] Devan Kirkpatrick Unavailable [phone] REASON FOR VISIT BUY Colig 10 Encounters Encounter Location Date Provider Diagnosis [facility] [address] [place] [address] 03/25/2024 Devan Kirkpatrick Plan Of Treatment No Information Progress Notes * Gavin SOLIMANOB:1955 ( 68 yo F)Acc No.[id number]:03/25/2024 Patient:?Clair Felecia :1955???Age:68 Y???Sex:Female [address]:[place] [address] * true * Date:? Generated for Printi collins/Hunter/eTransmitting on:?08/18/2024 07:26 PM EST
--- OUTSIDE RECORDS SUMMARY | 2024-08-18 19:27 | XMS_ITS ---
Author Organization [facility] Address [address] [place] [address] Care Team Providers Care Mounter Sousaphones Name Role Phone Armando Holloway MD Primary Care Provider Unavaila Saira Hurst Unavailable [phone] Devan Kirkpatrick Unavailable [phone] REASON FOR VISIT Painful thick toenails which [...] areas on feet for 30 days Active Encounters Encounter Location Date Provider Diagnosis [facility] [address] [place] [address] 12/18/2023 Devan Kirkpatrick Type 1 diabetes mellitus [...] or Cutting o f Benign Hyperkeratotic Lesion(s) 10474 (2-4 Lesions) - The Benign hyperkeratotic lesions, [...] as necessary. Patient chooses, no pharmaceutical tx (00428) Nail Reduction Nail Reduction Trimming of dyst rophic nails performed to reduce/remove overall nail length and girth, by manual and electrical means with use of a nail nipper and/or dremel, to more viable healthy nail plate or bed tissue 6-10 (G0127) Progress Notes * Rachnaa SOLIMANneDOB:1955 ( 69 yo F)Acc No.[id number]:12/18/2023 Progress Note Patient:Felecia AVILES Provider:?Devan Kirkpatrick DPM :1955???Age:68 Y???Sex:Female D ate:12/18/2023 [facility] [place] , [facility] Pcp:Armando Holloway MD Subjective: * Chief Complaints: * ???1. Painful thick toenails which are aggrevated by shoes and causes difficulty standing/walking. * HPI: ???At Risk footcare:?Pt States Last PCP Visit:?Date?11/23/2022 ???Toe pain:?Nature:?throbbing, aching.?Location:?2nd toe, 3rd toe, Left foot.?Duration:?several months.?Onset/Cause:?states traumatic (dropped can on toes?).?Course:?unresolved.?Aggravated by:?shoes, any pressure.?Treatments:?none.?Severity/Quality:?moderate.? * ROS:?General/Constitutional:?Nausea?denies.?Vomiting?denies.?Hunger Thirst?denies.?Loss appetite?denies.?Chills?denies.?Fatigue?denies.?Fever?denies.?Night Sweats?denies.?Unexplained weight loss?denies.?Unexplained weight gain?denies.?HEENTM:?Dentures?denies.?Dizziness?denies.?Glasses/contacts?admits.?Retinopathy?de nies.?Blurred/double vision?denies.?TMJ?denies.?Discharge/drainage?denies.?Implants?denies.?Sore throat?denies.?Dental implants?denies.?Hard of hearing ?denies.?Difficulty chewing/swallowing/speaking?denies.?Nose bleeds?denies.?Sore mouth?denies.?Respiratory:?On Oxygen?denies.?Pneumonia/pleurisy?denies.?Bronchitis?denies.?Emphysema?denies.?C oughing?admits.?Cough blood?denies.?Shortness of breath?admits.?Wheezing?denies.?Cardiovascular:?Pacemaker?denies.?MVP?denies.?WPW?denies.?CHF?denies.?Heart attack?denies.?Septal defect?denies.?Rapid beat?denies.?Chest pain ?denies.?Atrial Fib.?denies.?Murmur/Palpitations?denies.?Gastrointestinal:?Hemorrhoids?admits.?Stomach/Abdominal pain?admits.?Dark blood stool?denies.?Irritable bowel ?denies.?Constipation?denies.?Diarrhea?denies.?Hematology:?Swelling?admits.?Clots?Admits.?Varicose Veins?admits.?Bruising?denies.?Bleeding problem?denies.?Genitourinary:?Blood urine?denies.?Frequent/Painfu/urination/bladder control?denies.?Kidney stones?denies.?Infection (UTI)?denies.?Nephropathy?denies.?sex trans dis (STD)?denies.?Prostate?denies.?Musculoskeletal:?Hammertoes?denies.?Bunions?denies.?Back Pain?admits.?Muscle Cramps/ Resting?admits.?Muscle cramps / walking?denies.?Generalized aches and pains?admits.?Weakness?denies.?Integ.:?Knowles?denies.?Scars?denies.?Corns/calluses?denies.?Ingrown nails?admits.?Painful nails?denies.?Open Sores?denies.?Rashes?denies.?Neurologic:?Difficulty sleeping?denies.?Brain disorder?denies.?Numbness?denies.?Balance trouble?denies.?Confusion?denies.?Fainting/blackouts?denies.?Tingling?denies.?Tr emors?denies.? * Medical History:? Objective: * Vitals:? * Examination: ???Neurological: ?SENSORY:?Neurological exam demonstrates, reduced light touch sensation, 5.07 monofilament test performed at plantar aspects of 5 varied sites per foot shows sensation, reduced , B/L, Neurological exam demonstrates pop left 2,3 toes.?Vascular: ?DP PULSES(B):? 09/12, B/L.?PT PULSES(B):? 09/12, B/L.?CAPILLARY FILL TIME:?3 secs. per digit. B/L.?TEMPERTURE GRADIENT(C):?normal, B/L.?PIGMENTATION:? resolving cellulitis right leg.?EDEMA(C):? 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 6.?Tinea pedis - B35.3???7.?Ingrowing nail - L60.0???8.?Lymphedema - I89.0???9.?Closed nondisplaced fracture of phalanx of lesser toe of left foot, unspecified phalanx, initial encounter - B81.966A??? Plan: * Treatment: 2.?Tinea pedis? Start Clotrimazole-Betamethasone [...] as necessary. Patient chooses, no pharmaceutical tx (98118).?Keratoma Treatment:?Parring or Cutting of Benign Hyperkeratotic Lesion(s)?00656 (2-4 Lesions) - The Benign hyperkeratotic lesions, as described above were pared, and/or cut utilizing a sterile #15 blade, tissue nippers, and/or dremel.?Nail Reduction:?Nail Reduction?Trimming of dystrophic nails performed to reduce/remove overall nail length and girth, by manual and electrical means with use of a nail nipper and/or dremel, to more viable healthy nail plate or bed tissue 6-10 (G0127).? * Procedure Codes:?81683 DEBRI DE NAIL, 1-5, Modifiers: XS , 64387 TRIM SKIN LESIONS, 2 TO 4, Modifiers: XS , G0127 TRIMMING DYSTROPHIC NAILS ANY #, Modifiers: XS , 71112 X-RAY EXAM OF LEFT FOOT 3V, Modifiers: 26 , LT * Follow Up:?3 Months * Images: * The named appointment provid er may or may not be the originator of this progress note, and it is not deemed complete until electronically signed by the appointment provider. Sign off status: Pending * Provider:?Devan Kirkpatrick DPM Date:? 024 Generated for Clemencia guadalupe/Hunter/Juliana on:?08/18/2024 07:27 PM EST History and Physical [...] Eye Exam:: no retin opathy Vascular DP PULSES(B): 1/4, B/L PT PULSES(B): [...]
--- OUTSIDE RECORDS SUMMARY | 2024-08-18 19:28 | XMS_ITS ---
Author Organization [facility] Address [address] [place] [address] Care Team Providers Care Sweater Designer Name Role Phone Armando Holloway MD Primary Care Provider Valeriano Dickerson [phone] ALLERGIES Allergen (clinical drug ingredient) Drug/Non Drug Allergy documented on EMR Reaction Allergy Type Onset Date Status gentamicin Gentamicin Sulfate Unknown Drug Allergy Active esomeprazole Nexium (uncoded) Unknown Allergy Active Latex latex (uncoded) Unknown Allergy Acti ve Shellfish (FN) shell fish (uncoded) Unknown Allergy Active CT Scan dye (uncoded) Unknown Allergy Active Penicillin Unknown Drug Allergy Active vancomycin Vancomycin HCl Unknown Drug Allergy A ctive tetracycline Tetracycline HCl Unknown Drug Allergy Active morphine Morphine Sulfate Unknown Drug Allergy Active REASON FOR VISIT Patient presents today for pancreatitis MEDICATIONS Medication SIG (Take, Route, Frequency, Duration) Notes Start Date End Date Status Tricor 145 MG 1 tablet Orally Once a day Active Albuterol Sulfate HFA Active Furosemide 40 MG 1 tablet Orally Once a day Active Insulin Lispro (1 Unit Dial) Active oxyCODONE HCl 10 MG 1 tablet as needed O rally every 6 hrs Active Enalapril Maleate 20 MG 1 tablet Orally Twice a day Active Lopressor 100 MG 1 tablet with food O rally Twice a day Active amLODIPine Besylate 2.5 MG 1 tablet Orally Once a day A ctive Lipitor 40 MG 1 tablet Orally Once a day Active Neurontin 300 MG 2 Orally QD A ctive Gabapentin 300 MG Oral for 90 Active Levemir FlexPen 100 UNIT/ML INJECT 100 UNITS UNDER THE SKIN TWO TIMES A DAY Subcutaneous for 30 Active Levemir FlexTouch Ac tive VITAL SIGNS BMI 40.97 kg/m2 04/12/2023 Blood pressure systolic 000 mm Hg 04/12/20 23 Blood pressure diastolic 00 mm Hg 023 Height 63.50 in 04/12/2023 Temperature 97.3 degrees Fahrenheit 04/12/20 23 Weight 235 lbs 04/12/2023 Encounters Encounter Location Date Provider Diagnosis [facility] [address] [place] [address] 04/12/2023 Valeriano Corona Gastroesophageal ref lux disease without esophagitis K21.9 ; Barretts esophagus without dysplasia K22.70 ; Family history of colon cancer Z80.0 and Encounter for screening for malignant neoplasm of colon Z12.11 ASSESSMENTS Encounter Date Diagnosis Assessment Notes Treatment Notes Treatment Clinical Notes 04/12/2023 Gastroesophageal reflux disease without esophagitis (ICD-10 - K21.9) Speak with Dr. Holloway regarding instructions for adjusting your diabetes regimen for the day before and the day of the procedures Do not take the Furosemide the day before nor on the day of the procedures 04/12/2023 Barretts esophagus without dysplasia (ICD-10 - K22.70) 04/12/2023 Family history of colon cancer (ICD-10 - Z80.0) 04/12/2023 Encounter for screening for malignant neoplasm of colon (ICD-10 - Z12.11) PLAN OF TREATMENT Treatment Notes Assessment Notes Gastroesophageal reflux dise ase without esophagitis Speak with Dr. Holloway regarding instructions for adjusting your diabetes regimen for the day before and the day of the procedures Do not take the Furosemide the day before nor on the day of the procedures Future Test Test Name Order Date UPPER GI ENDOSCOPY 04/12/2023 COLONOSCOPY 04/12/2023 Next Appt Details Follow Up: prn, Reason: Provider Name:Valeriano Corona , 10/27/2024 10:50:00 AM, [address], [address], [place], [address], Progress Notes * Examination Category Sub-Category Detail Notes General Examination GENERAL APPEARANCE: pleasant , well nourished, well developed, in no acute distress EYES: sclera non-icteric NECK/THYROID: no cervical lymphade nopathy, neck supple HEART: S1, S2 normal LUNGS: clear to auscultatio n bilaterally ABDOMEN: normal bowel sounds, no guarding or rigidity, no hepatosplenomegaly, no masses palpable, soft, nondistended-she does have relatively diffuse tenderness throughout her abdomen however. NEUROLOGIC: alert and oriented SKIN: nonjaundiced, no spi brennon angiomata. EXTREMITIES: no edema ORAL CAVITY: mucosa moist
--- OUTSIDE RECORDS SUMMARY | 2024-08-18 19:28 | XMS_ITS | Patient Health Record ---
Author Organization [facility] Address [address] [place] [address] Care Team Providers Care Assistant Store Director Name Role Phone Armadno Holloway MD Primary Care Provider Valeriano Dickerson [phone] ALLERGIES Allergen (clinical drug ingredient) Drug/Non Drug [...] Sulfate Unknown Drug Allergy Active REASON FOR REFERRAL No Information MEDICATIONS Medication SIG (Take, Route, Frequency, Duration) Notes Start Date End Date Status Albuterol Sulfate HFA Active Levemir FlexTouch Ac tive Furosemide 40 MG 1 tablet Orally Once a day Active Insulin Lispro (1 Unit Dial) Active Lansoprazole 30 MG 1 Orally Twice a day for 90 days 08/15/2023 Active oxyCODONE HCl 10 MG 1 tablet as needed O rally every 6 hrs Active Enalapril Maleate 20 MG 1 tablet Orally Twice a day Active Tricor 145 MG 1 tablet Orally Once a day Active Lopressor 100 MG 1 tablet with food O rally Twice a day Active Gabapentin 300 MG Oral for 90 Active amLODIPine Besylate 2.5 MG 1 tablet Orally Once a day Active Lipitor 40 MG 1 tablet Orally Once a day Active Neurontin 300 MG 2 Orally QD A ctive Levemir FlexPen 100 UNIT/ML INJECT 100 UNITS UNDER THE SKIN TWO TIMES A DAY Subcutaneous for 30 Active IMMUNIZATIONS Vaccine Route Administration Date Status Comme nts Influenza Unknown 06/03/2019 Refused SOCIAL HISTORY Sex Assigned At : Social History Observation Description Sex Assigned At Unknown PROBLEMS Problem Type ICD Code Onset Dates Problem Status W/U Status Risk SNOMED Code Notes Problem Encounter for screening for malignant neoplasm of colon (Z12.11) Active confirmed 458578931 Problem Diverticulosis of large intestine without perforation or abscess without bleeding (K57.30) Active confirmed Diverticul ar disease of colon (788118669) Problem Other chronic pancreatitis (K86.1) Active confirmed 422838242 Problem Encounter for screening for malignant neoplasm of rectum (Z12.12) Active confirmed Screening for malignant neoplasm of rectum (411993500) Problem Gastroesophageal reflux disease without esophagitis (K21.9) Active confirmed 090997198 Problem Barretts esophagus without dysplasia (K22.70) Active confirmed 932347432 Problem Gastroesophageal reflux disease, esophagitis presence not specified (K21.9) Active confirmed 764330727 Problem Family history of colon cancer (Z80.0) Active confirmed 308786016 Problem Constipation, unspecified constipation type (K59.00) Active confirmed 89911742 Problem Gastritis (K29.70) Active confirmed Gas tritis (2812187) Problem 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) Active confirmed Ro esophag us (903163717) Problem Esophageal reflux disease (K21.9) Active confirmed Gastroesopha geal reflux disease (788580894) Problem Hypertension, unspecified type (I10) Active confirmed 81638409 Problem Esophageal dysphagia (R13.10) Active confirmed 55780277 PLAN OF TREATMENT Pending Test Test Name Order Date IgG SUBCLASSES PANEL, SERUM 04/24/2012 IgG SUBCLASSES PANEL, SERUM 06/25/2012 FLUOR. ANTINUCLEAR AB SCREEN (YULISSA) 06/09 FLUOR. ANTINUCLEAR AB SCREEN (YULISSA) 04/09 Future Test Test Name Order Date UPPER GI ENDOSCOPY 02/13/2012 UPPER GI ENDOSCOPY 11/30/2016 COLONOSCOPY 11/30/2016 UPPER GI ENDOSCOPY BALLOOON DILATION OF ESOPH 06/03/2019 UPPER GI ENDOSCOPY 03/07/2022 COLONOSCOPY 03/07/2022 UPPER GI ENDOSCOPY 04/12/2023 COLONOSCOPY 04/12/2023 Next Appt Details Provider Name:Valeriano Corona , 10/27/2024 10:50:00 AM, [address], [address], [place], [address], Insurance Providers Payer Name Payer Address Payer Phone Subscriber Number Group Number Insured Name Patient Relationship to Insured Coverage Start Date Coverage End Date MEDICARE OF [place] [address] [place] [address] [phone] [id number] JOURDANCAROLEENE Self - patient is the insured [facility] [address] [place] [address] [id number] NA SOLIMAN Self - patient is the insured MEDICAL (GENERAL) HISTORY Medical History History ICD Code GERD Ro's Esophagus-upper en doscopies in February of 2012 and 2016 with the finding of a hiatal hernia but biopsies were negative for Ro's esophagus--she did have biopsies in 2008 that did show Ro esophagus, but without any dysplasia Pancreatitis-due to pancreas divisum and hypertriglyceridemia-last hospitalized in October of 2021-the CAT scan was c/w acute pancreatitis--lab work has been negative for any sign of autoimmune pancreatitis with IgG levels and HEMA Pulmonary embolus Endometrial cancer-s/p Hysterectomy Denies [place],CVA,renal disease Hypertriglyceridemia She had negative colonoscopies in 2003, 05/2011, and 02/2017 IDDM Hypertension Asthma EGD in 06/2019-this was done for evaluation of some dysphagia. There was no significant esophagitis, and biopsies from the esophagus were negative for eosinophilic esophagitis and negative for any definitive Ro's esophagus. There was no sign of any esophageal stricture nor significant esophagitis. The EG Junction was dilated with an 18 to 20mm balloon, although without any appreciable effect.Gastric biopsies were negative for H. pylori and benign gastric polyps were biopsied as well. She was continued on her PPI for presumed esophageal spasm in regard to the reflux. She was admitted in 2020 and October of 2021 with regard to recurrent pancreatitis--her triglyceride level was only 318 October 2021 Admitted in May with recurrent pancreatitis. Her triglyceride level was only 325 and her MRCP did not show any choledocholithiasis nor pancreatic duct abnormality Negative cardiac catheterization in 2021 . She is followed by Dr. Keating Surgical History Surgery Date(Month/Year) Hysterectomy for endometrial cancer 08/09 0 Rt. inginual hernia Endoscopic sphincteroplasty of major papillia to try to treat pancreatitis in relation to her pancreas divisum-Dr. Aggarwal at [facility] Surgical minor sphincteropla sty to try to treat pancreatitis in relation to her pancreas divisum-at [facility] with Dr. Clemetne Cholescystectomy 11/1997 Right knee Wrist
== END 2024-08-12 14:25 | disposition home or self-care (01) ==
PROVIDERS: PCP Internal Medicine; Visit Provider Internal Medicine Nephrology
DX: E11.21 Type 2 diabetes mellitus with diabetic nephropathy (principal); I10 Essential (primary) hypertension
CPT/HCPCS: 99214

== ENCOUNTER → 2024-08-12 13:17 | Outpatient (BNVA) | payer MEDICARE, OTHER, SELFPAY | PROVIDERS: PCP Internal Medicine; Visit Provider Internal Medicine Nephrology | DX: E11.21 Type 2 diabetes mellitus with diabetic nephropathy (principal); I11.0 Hypertensive heart disease with heart failure | CPT/HCPCS: 99212 ==

== ENCOUNTER 2024-11-17 10:43 | Emergency (ER) | payer MEDICARE, OTHER, SELFPAY ==
[2024-11-17] VITALS (9 sets, daily range): BP systolic 152–214; BP diastolic 70–100; PULSE 68–74; RESP 14–20; TEMP 35.5–37; O2SAT 92–99; BMI 40.3
--- NOTE | ~2024-11-17 | CT_ITS ---
EXAMINATION: CT ABDOMEN AND PELVIS WITHOUT CONTRAST CLINICAL INFORMATION: Abdominal pain. Prior pancreatitis. COMPARISON: November 02, 2021. TECHNIQUE: Multidetector volumetric imaging was performed from the superior aspect of the liver through the pubic symphysis. Sagittal and coronal reformatted images were obtained on the technologist's workstation. This CT examination was performed using dose optimization techniques as appropriate, variously including the following: *Automated exposure control *Adjustment of mA and/or kV according to patient size (this includes techniques or standardized protocols for targeted exams where dose is matched to indication/reason for exam; i.e. extremities or head) *Use of iterative reconstruction technique. DLP: 773 mGy centimeter. FINDINGS: Limited evaluation of the intra-abdominal organs and vascular structures due to lack of IV contrast.. LUNG BASES: No gross acute airspace disease. LIVER, GALLBLADDER, AND BILIARY TREE: Liver measures 15 cm. No intrahepatic biliary ductal dilatation. The gallbladder is absent. No extrahepatic biliary ductal dilatation. PANCREAS: Peripancreatic edema pattern. No fluid collection. No main pancreatic ductal dilatation. Calcified plaques throughout the splenic artery. SPLEEN: 8 cm. ADRENAL GLANDS: No nodular lesions. KIDNEYS AND URETERS: No hydronephrosis. No nephrolithiasis. BLADDER: Fluid-filled. GASTROINTESTINAL TRACT: Abundant stool, large intestine. Few scattered diverticula, left hemicolon. Appendix is normal. No intestinal obstruction pattern. No pneumoperitoneum. No peritoneal fluid collections. No gross ascites. No pneumatosis intestinalis. ABDOMINAL WALL: Skin thickening and edema pattern in the left lateral abdominal wall and to a lesser extent right lateral abdominal wall. Small fat-containing umbilical hernia. LYMPH NODES: No lymphadenopathy, mesenteric or retroperitoneal. VASCULAR: Calcified plaques throughout the abdominal aorta and the origin of the mesenteric arteries the main renal arteries and iliac arteries without gross aneurysm in the abdominal aorta. Calcified plaques in the mitral valve. Calcified plaques in the descending thoracic aorta. PELVIC VISCERA: Inadequate evaluation. Absent uterus. OSSEOUS STRUCTURES: Multilevel thoracolumbar spondylosis more conspicuous at L4-5 and L5-S1 resulting in central spinal canal and bilateral neuroforamina stenosis. No acute fracture, bony pelvis. No acute fracture or dislocation, coxofemoral joints. Calcifications likely granuloma in the gluteal regions. CT/CT abdomen pelvis wo IV con IMPRESSION: Acute pancreatitis without gross fluid collections, lesser sac or peritoneal cavity. Atherosclerosis disease. Calcified plaque mitral valve. Diverticular disease, left hemicolon. Multilevel spondylosis resulting in central spinal canal and bilateral neuroforamina stenosis L4-5 and L5-S1. Fleischner guidelines were followed. Electronically signed by: Catalino Williamson MD 11/17/2024 02:16 PM EDT RP
--- NOTE | 2024-11-17 11:04 | ED_ITS ---
HPI - General Adult General Chief complaint: Abdominal Pain Stated complaint: Pancreatitis? Time Seen by Provider: 11/17/24 12:17 Source: patient Mode of arrival: ambulatory Limitations: no limitations History of Present Illness HPI narrative: 69 year old female PMH: hypertension, hyperlipidemia, diabetes, CAD, history of recurrent pancreatitis secondary to hypertriglyceridemia/pancreatic divisum who presents again to emergency department for increasing abdominal pain for the past 2 days and I believe anything associated nausea and vomiting patient denies any fevers or chills was seen triage labs were sent. Related Data Home Medications ?Medication ?Instructions ?Recorded ?Confirmed gabapentin 300 mg capsule 600 mg PO BEDTIME 05/24/22 11/17/24 oxycodone 10 mg tablet 1 tab PO QID PRN Pain 05/24/22 11/17/24 atorvastatin 40 mg tablet 40 mg PO DAILY 01/27/24 11/17/24 fenofibrate nanocrystallized 145 145 mg PO DAILY 01/27/24 11/17/24 mg tablet metoprolol tartrate 100 mg tablet 200 mg PO BEDTIME 01/27/24 11/17/24 nystatin 100,000 unit/gram topical 1 appl topical BID PRN Rash 04/28/24 11/17/24 powder ([facility]) enalapril maleate 20 mg tablet 20 mg PO BID 07/30/24 11/17/24 lansoprazole 30 mg capsule,delayed 30 mg PO BID 07/30/24 11/17/24 release insulin glargine 100 unit/mL (3 60 unit subcut TID 11/17/24 11/17/24 mL) subcutaneous pen (Lantus Solostar U-100 Insulin) Previous Rx's ?Medication ?Instructions ?Recorded hydralazine 50 mg tablet 50 mg PO TID 30 days #90 tabs 08/12/24 Allergies Allergy/AdvReac Type Severity Reaction Status Date / Time gentamicin Allergy Severe Difficulty Verified 11/17/24 11:05 Breathing Iodinated Contrast Media Allergy Severe Difficulty Verified 11/17/24 11:05 Breathing, nausea and vomiting latex [LATEX] Allergy Severe Anaphylaxis Verified 11/17/24 11:05 morphine Allergy Severe Anaphylaxis Verified 11/17/24 11:05 Penicillins Allergy Severe stopped Verified 11/17/24 11:05 breathing as an shellfish derived Allergy Severe Difficulty Verified 11/17/24 11:05 [SHELLFISH DERIVED] Breathing, swelling vancomycin Allergy Severe Difficulty Verified 11/17/24 11:05 Breathing azithromycin Allergy Unknown Unknown Verified 11/17/24 11:05 erythromycin base Allergy Unknown Unknown Verified 11/17/24 11:05 esomeprazole Allergy Unknown Unknown Verified 11/17/24 11:05 pantoprazole AdvReac Mild Nausea and Verified 11/17/24 11:05 Vomiting Review of Systems 2 Review of Systems: Review of systems: General: Patient denies any fever chills recent illness or falls Musculoskeletal: Denies back pain or body aches or other injuries HEENT: denies headache, runny nose, ear pain Respiratory: denies shortness of breath, cough Cardiovascular: no chest pain or palpitations : denies dysuria, frequency Abdomen: nausea vomiting diarrhea and abdominal pain Extremities: no swelling, no pain Skin: no diaphoresis Yes all other systems are reviewed and are negative [facility] Past Medical History Medical History Hypertriglyceridemia Asthma Endometrial cancer Barretts esophagus GERD (gastroesophageal reflux disease) Pancreatic divisum CAD (coronary artery disease) MCC (current) use of insulin Diabetes type 2, uncontrolled Cervical cancer Other and unspecified hyperlipidemia Essential hypertension Vitamin D deficiency T2DM (type 2 diabetes mellitus) HLD (hyperlipidemia) HTN (hypertension) Pancreatitis Accelerated essential hypertension Embolism Surgical History History of esophagogastroduodenoscopy (EGD) Hx of colonoscopy Hx of removal of cyst Hx of hernia repair Hx of cholecystectomy Hx of endoscopy Hx of hysterectomy Family History Family History Father Diabetes Mother Diabetes Social History Social History Household Members: Spouse Housing: House Do you presently have visiting nurse or other home services: No Alcohol intake: never Comment: sleeping Patient Tobacco Use Status: Former Tobacco user Smoked in Last 30 Days: No e-Cigarette/Vaping Use: Never Used Use of substances other than those prescribed or required for medical reasons: No Advance Directives: No Advance Directives Information Provided: Yes service: No Current occupational status: employed and unemployed Current occupation: [employer] Physical Exam ED Vital Signs: Vital Signs - 24 hr 11/17/24 10:56 11/17/24 12:28 11/17/24 13:16 Temperature 96 F L Pulse Rate 71 68 Respiratory Rate 18 20 14 Blood Pressure 207/82 H 152/70 H Pulse Oximetry 99 92 Oxygen Delivery Method Room Air Room Air 11/17/24 14:37 11/17/24 15:14 Temperature 98.6 F Pulse Rate 72 74 Respiratory Rate 14 18 Blood Pressure 168/79 H 180/80 H Pulse Oximetry 93 95 Oxygen Delivery Method Room Air Room Air BMI result Body Mass Index 40.3 General: Well-appearing well-nourished in no signs of distress HEENT: Normocephalic atraumatic Neck: No signs of JVD, no masses no tenderness or lymphadenopathy Cardiovascular: Regular rate and rhythm Respiratory: Clear to auscultation bilaterally Abdomen: Soft tender all over no masses Extremities: Normal pedal pulses no signs of edema Skin: Dry warm no rashes Back: No tenderness full ROM Course Course Course Narrative: RME, this is a rapid medical exam performed by Ramos Youssef please refer to primary provider for complete H&P- 69-year-old female presents for evaluation of upper abdominal pain with nausea and vomiting. She reports a history of pancreatitis. She does not drink alcohol and is status post cholecystectomy. Plan for labs, urinalysis. Will defer advanced imaging to primary ER provider. Reevaluation(s) Reevaluation #1: Patient with concerns for pancreatitis patient's pain is better controlled after medications but labs are very consistent with a pancreatitis we are still pending CT scan at this time patient did have elevated glucose but no signs of DKA I will continue to monitor and give fluids. Time: 13:27 Reevaluation #2: Patient's labs were reviewed by the hospitalist who felt patient needs IV insulin for the elevated triglycerides and wanted ICU involved I spoke with Dr. Swan from the ICU. Time: 14:45 Reevaluation #3: There are no beds in the ICU unfortunately can not admit here as the patient's triglycerides are 2 elevated I called over to [facility] there was 24-48 hour wait I will call [facility] I did explain the I will to the patient. Additional Reevaluation(s): 1556 Accepted to Lisseth Massey to [facility] in [place], [place]. Bed available. Will be a direct admit 11/17/2024 at 17:03 hours, Dr. Zac Zhang's note: The patient and her were concerned about the transfer to [facility] in [facility]. I did make them aware that we called multiple local tertiary hospitals and they are close secondary to lack of capacity. After this discussion, the patient and her did agree to transfer. I did discuss the insulin parameters with the patient's nurse. The insulin dose for hypertriglyceridemia is 0.1-0.3 units per kg per hour with a glucose range goal of 150-200 mg/dL with Q 1 point of care glucose checks. Patient was currently receiving 10 units of insulin per hour. Patient was complaining of increased pain and she was given Dilaudid 1 mg IV. Medications Administered Generic Name Dose Route Start Last Admin Trade Name Freq PRN Reason Stop Dose Admin Insulin Human Regular 100 unit in 100 mls @ 9 mls/hr 11/17/24 15:00 11/17/24 15:31 Myxredlin IVCONT 9 unit/hr .Q11H7M ALYSSA 9 mls/hr Administration Protocol 9 UNIT/HR Dextrose 1,000 mls @ 50 mls/hr 11/17/24 15:30 11/17/24 15:28 D5w IVCONT 50 mls/hr .Q20H ALYSSA Administration Discontinued Medications Generic Name Dose Route Start Last Admin Trade Name Freq PRN Reason Stop Dose Admin Diphenhydramine HCl 50 mg 11/17/24 12:19 11/17/24 12:27 Diphenhydramine Hcl 50 Mg/Ml Vial IVPUSH 11/17/24 12:20 50 mg ONCE ONE Administration Haloperidol Lactate 5 mg 11/17/24 12:19 11/17/24 12:30 Haloperidol Lactate 5 Mg/Ml Vial IVPUSH 11/17/24 12:20 5 mg STAT STA Administration Hydromorphone HCl 1 mg 11/17/24 12:19 11/17/24 12:28 Hydromorphone Hcl 1 Mg/Ml Syringe IVPUSH 11/17/24 12:20 1 mg ONCE ONE Administration Protocol Sodium Chloride 1,000 mls @ 999 mls/hr 11/17/24 12:30 11/17/24 15:15 Ns IV 11/17/24 13:30 Infused .Q1H1M ALYSSA Infusion Sodium Chloride 1,000 mls @ 999 mls/hr 11/17/24 13:00 11/17/24 15:15 Ns IV 11/17/24 14:00 Infused .Q1H1M ALYSSA Infusion Magnesium Sulfate 2 gm in 50 mls @ 25 mls/hr 11/17/24 13:28 11/17/24 15:49 Magnesium Sulfate/H2o IV 11/17/24 15:27 Infused ONCE ONE Infusion Sodium Chloride 1,000 mls @ 999 mls/hr 11/17/24 13:30 11/17/24 15:15 Ns IV 11/17/24 14:30 Infused .Q1H1M ALYSSA Infusion Medical Decision Making Medical Decision Making [facility] Narrative: I will treat the patient with Dilaudid send the patient for CT scan give labs and reassess Differential Diagnosis Differential Diagnoses: The differential diagnosis associated with the presentation includes Pancreatitis dehydration electrolyte abnormality related to recent antibiotic use Lab Data 11/17/24 11:25 11/17/24 11: Labs: Lab Results 11/17/24 11/17/24 11/17/24 Range/Units : 13: 13:30 WBC 11.6 H (4.8-10.8) X10*3/uL RBC 4.72 (4.20-5.50) X10*6/uL Hgb 13.4 (12.0-16.0) g/dl Hct 40.1 (37.0-47.0) % MCV 85.0 (80.0-98.0) fL MCH 28.4 (27.0-33.0) pg MCHC 33.4 (31.0-35.0) g/dl RDW 13.9 (11.0-16.0) % Plt Count 274 (160-400) X10*3/uL MPV 11.0 (9.4-12.3) fL Immature Gran % (Auto) 0.3 (0.0-0.4) % Neut % (Auto) 84.2 H (45-73) % Lymph % (Auto) 9.8 L (20-40) % Brantley % (Auto) 4.2 (2-11) % Eos % (Auto) 0.9 (0-4) % Baso % (Auto) 0.6 (0-2) % Lymph # (Auto) 1.1 L (1.2-4.9) X10*3/uL Brantley # (Auto) 0.5 (0.1-1.2) X10*3/uL Eos # (Auto) 0.1 (0.0-0.4) X10*3/uL Baso # (Auto) 0.1 (0.0-0.2) X10*3/uL Abs Immat Gran (auto) 0.04 H (0.00-0.03) X10*3/uL Absolute Neuts (auto) 9.7 H (2.0-8.3) x10*3/uL Absolute Nucleated RBC 0.000 (0.0-0.012) X10*3/uL Nucleated RBC % (auto) 0.0 (0.0-0.2) /100WBC PT 11.4 (10.9-12.4) SEC INR 1.0 (0.9-1.1) VBG pH 7.40 (7.32-7.43) VBG pCO2 44 mmHg VBG pO2 80 mmHg VBG HCO3 28 H (22-26) mmol/L VBG O2 Saturation 96.0 % VBG Base Excess 3.2 mmol/L Sodium 136 (135-145) mmol/L Potassium 4.0 (3.3-5.1) mmol/L Chloride 101 (96-108) mmol/L Carbon Dioxide 26 (22-29) mmol/L Anion Gap 13 (12-20) BUN 16 (9-16) mg/dL Creatinine 1.12 (0.5-1.4) mg/dL Estim Creat Clear Calc 50.9 Estimated GFR 48 POC Glucose (60-115) mg/dL Random Glucose 414 H* (60-115) mg/dL Calcium 9.3 (8.4-10.2) mg/dL Magnesium 1.5 L (1.6-2.6) mg/dL Total Bilirubin 0.4 (0.0-1.0) mg/dL AST 51 H (5-31) U/L ALT 19 (0-31) U/L Alkaline Phosphatase 102 (39-117) U/L Total Protein 7.8 (6.5-8.0) g/dL Albumin 3.7 (3.5-5.0) g/dL Triglycerides 952 H (<150) mg/dL Lipase 1428 H (8-78) U/L Beta-Hydroxybutyrate 0.12 (0.02-0.27) mmol/L Urine Color Yellow Urine Appearance Clear Urine pH 6.5 (5.0-9.0) Ur Specific [place] >= 1.030 H (1.005-1.025) Urine Protein 300 (3+) H (Neg-Trace) mg/dL Urine Glucose (UA) >=1000 H (Negative) mg/dL Urine Ketones Negative (Negative) mg/dL Urine Blood Negative (Negative) Urine Nitrite Negative (Negative) Ur Leukocyte Esterase Negative (Negative) Urine RBC 0-2 (0-2) /HPF Urine WBC 0-5 (0-5) /HPF Ur Squamous Epith Cells 3-5 (0-2) /HPF Urine Bacteria None Seen (None Seen) Hyaline Casts 0-2 (0-2) /LPF Ethyl Alcohol < 10 mg/dL 11/17/24 11/17/24 Range/Units 15:13 16:16 WBC (4.8-10.8) X10*3/uL RBC (4.20-5.50) X10*6/uL Hgb (12.0-16.0) g/dl Hct (37.0-47.0) % MCV (80.0-98.0) fL MCH (27.0-33.0) pg MCHC (31.0-35.0) g/dl RDW (11.0-16.0) % Plt Count (160-400) X10*3/uL MPV (9.4-12.3) fL Immature Gran % (Auto) (0.0-0.4) % Neut % (Auto) (45-73) % Lymph % (Auto) (20-40) % Brantley % (Auto) (2-11) % Eos % (Auto) (0-4) % Baso % (Auto) (0-2) % Lymph # (Auto) (1.2-4.9) X10*3/uL Br[place]ley # (Auto) (0.1-1.2) X10*3/uL Eos # (Auto) (0.0-0.4) X10*3/uL Baso # (Auto) (0.0-0.2) X10*3/uL Abs Immat Gran (auto) (0.00-0.03) X10*3/uL Absolute Neuts (auto) (2.0-8.3) x10*3/uL Absolute Nucleated RBC (0.0-0.012) X10*3/uL Nucleated RBC % (auto) (0.0-0.2) /100WBC PT (10.9-12.4) SEC INR (0.9-1.1) VBG pH (7.32-7.43) VBG pCO2 mmHg VBG pO2 mmHg VBG HCO3 (22-26) mmol/L VBG O2 Saturation % VBG Base Excess mmol/L Sodium (135-145) mmol/L Potassium (3.3-5.1) mmol/L Chloride (96-108) mmol/L Carbon Dioxide (22-29) mmol/L Anion Gap (12-20) BUN (9-16) mg/dL Creatinine (0.5-1.4) mg/dL Estim Creat Clear Calc Estimated GFR POC Glucose 290 H 257 H (60-115) mg/dL Random Glucose (60-115) mg/dL Calcium (8.4-10.2) mg/dL Magnesium (1.6-2.6) mg/dL Total Bilirubin (0.0-1.0) mg/dL AST (5-31) U/L ALT (0-31) U/L Alkaline Phosphatase (39-117) U/L Total Protein (6.5-8.0) g/dL Albumin (3.5-5.0) g/dL Triglycerides (<150) mg/dL Lipase (8-78) U/L Beta-Hydroxybutyrate (0.02-0.27) mmol/L Urine Color Urine Appearance Urine pH (5.0-9.0) Ur Specific [place] (1.005-1.025) Urine Protein (Neg-Trace) mg/dL Urine Glucose (UA) (Negative) mg/dL Urine Ketones (Negative) mg/dL Urine Blood (Negative) Urine Nitrite (Negative) Ur Leukocyte Esterase (Negative) Urine RBC (0-2) /HPF Urine WBC (0-5) /HPF Ur Squamous Epith Cells (0-2) /HPF Urine Bacteria (None Seen) Hyaline Casts (0-2) /LPF Ethyl Alcohol mg/dL Critical Care Time Critical Care Time Critical Care Time: Yes Total Critical Care Time: 80 Attestation: Patient with pancreatitis due to hypertriglyceridemia requiring an insulin drip multiple conversations with ICU hospitalist and ultimately transfer discussion with [facility]. Discharge Plan Discharge Clinical Impression: Pancreatitis, Abdominal pain, Diabetes mellitus with hyperglycemia, Hypomagnesemia, Hypertriglyceridemia Patient Disposition: Admitted As Inpatient Print Language: Kenyan
--- NOTE | 2024-11-17 11:05 | ECG_ITS ---
Test Reason : abdominal pain Blood Pressure : */* mmHG Vent. Rate : 69 BPM Atrial Rate : 69 BPM P-R Int : 160 ms QRS Dur : 84 ms QT Int : 420 ms P-R-T Axes : 58 23 115 degrees QTcB Int : 450 ms Normal sinus rhythm ST & T wave abnormality, consider lateral ischemia Abnormal ECG When compared with ECG of 28-Oct-2021 02:22, T wave inversion now evident in Lateral leads Referred By: Forest Youssef Electronically Signed By: SANJEEV CHRIS
[2024-11-17 11:32] LABS: MANUAL DIFF FLAG NO
[2024-11-17 11:33] LABS: Basophils Absolute Auto 0.1 X10*3/uL (0.0-0.2); Basophils Percent Auto 0.6 % (0-2); Eosinophils Absolute Auto 0.1 X10*3/uL (0.0-0.4); Eosinophils Percent Auto 0.9 % (0-4); Hematocrit 40.1 % (37.0-47.0); Hemoglobin 13.4 g/dl (12.0-16.0); Imm Gran Abs Auto 0.04 X10*3/uL (0.00-0.03); Imm Gran Pct Auto 0.3 % (0.0-0.4); Lymphocytes Absolute Auto 1.1 X10*3/uL (1.2-4.9); Lymphocytes Percent Auto 9.8 % (20-40); Mean Corpuscular HGB Conc 33.4 g/dl (31.0-35.0); Mean Corpuscular Hemoglobin 28.4 pg (27.0-33.0); Monocytes Absolute Auto 0.5 X10*3/uL (0.1-1.2); Monocytes Percent Auto 4.2 % (2-11); Neutrophils Absolute Auto 9.7 x10*3/uL (2.0-8.3); Neutrophils Percent Auto 84.2 % (45-73); Platelet Count 274 X10*3/uL (160-400); Red Blood Count 4.72 X10*6/uL (4.20-5.50); Red Cell Distribution Width 13.9 % (11.0-16.0); White Blood Count 11.6 X10*3/uL (4.8-10.8)
[2024-11-17 11:34] LABS: Appearance Urine Clear; Color Urine Yellow; Glucose Urine UA >=1000 mg/dL (Negative); Leukocyte Esterase Urine Negative (Negative); Nitrite Urine Negative (Negative); PH 6.5 (5.0-9.0); Specific Gravity - Urine >= 1.030 (1.005-1.025); UMIC TRIGGER UACC YES; Urine Blood Negative (Negative); Urine Ketones Negative (Negative); Urine Protein 300 (3+) mg/dL (Neg-Trace)
[2024-11-17 11:40] LABS: Prothrombin Time 11.4 SEC (10.9-12.4)
[2024-11-17 11:41] LABS: Bacteria Urine None Seen (None Seen); Hyaline Casts Urine 0-2 /LPF (0-2); RBC Urine 0-2 /HPF (0-2); WBC Urine 0-5 /HPF (0-5)
[2024-11-17 12:26] LABS: Alanine Aminotransferase 19 U/L (0-31); Albumin Level 3.7 g/dL (3.5-5.0); Alkaline Phosphatase 102 U/L (39-117); Anion Gap 13 (12-20); Aspartate Amino Transferase 51 U/L (5-31); Bilirubin Total 0.4 mg/dL (0.0-1.0); Blood Urea Nitrogen 16 mg/dL (9-16); Calcium 9.3 mg/dL (8.4-10.2); Carbon Dioxide 26 mmol/L (22-29); Chloride 101 mmol/L (96-108); Creatinine Clr Calc Pharmacy 50.9; Estimated Glomerular Filt Rate 48; Ethanol < 10 mg/dL; Magnesium 1.5 mg/dL (1.6-2.6); Sodium 136 mmol/L (135-145); Total Protein 7.8 g/dL (6.5-8.0)
[2024-11-17] MEDS: diphenhydrAMINE HCL 50 MG/ML VIAL IVPUSH (12:27)
[2024-11-17] MEDS: HYDROmorphone HCl 1 MG/ML SYRINGE IVPUSH ×2 (12:28→17:11)
[2024-11-17] MEDS: Haloperidol Lactate 5 MG/ML VIAL IVPUSH (12:30)
[2024-11-17] MEDS: 0.9 % Sodium Chloride 1,000 ML 999 ML IV ×3 (12:37→13:44)
[2024-11-17 12:58] LABS: Glucose Random 414 mg/dL (60-115)
[2024-11-17 13:03] LABS: Lipase 1428 U/L (8-78)
[2024-11-17 13:22] LABS: Beta-Hydroxybutyrate 0.12 mmol/L (0.02-0.27)
[2024-11-17 13:39] LABS: VBG Base Excess 3.2 mmol/L; VBG HCO3 28 mmol/L (22-26); VBG pCO2 44 mmHg; VBG pO2 80 mmHg
[2024-11-17] MEDS: Magnesium Sulfate/H2O 2 GM/50 ML PIGGYBACK IV (13:44)
[2024-11-17 13:46] LABS: Venous Blood Gas Refer to POC result
[2024-11-17 13:50] LABS: Triglycerides 952 mg/dL (<150)
--- OUTSIDE RECORDS SUMMARY | 2024-11-17 14:14 | XMS_ITS | Patient Health Record ---
Author [facility] Address [address] [place] [address] Care Team Providers Care Metal Drill Press Operator Name Role Phone Armando Holloway MD Primary Care Provider Saira Carranza Unavailable [phone] Devan Kirkpatrick Unavailable [phone] Allergies Allergen (clinical drug ingredient) Drug/Non Drug [...] Polyneuropathy due to type 2 diabetes mellitus (503133787) Type 2 diabetes mellitus with diabetic polyneuropathy (E11.42) Active confirmed Problem Polyneuropathy due to diabetes mellitus type I (445557586) Type 1 diabetes mellitus with diabetic polyneuropathy (E10.42) Active confirmed Problem 509362402 Lymphedema (I89.0) Active confirmed Vital Signs Blood pressure diastolic 70 mm Hg 03/25/2024 Height 5ft2in in 03/25/2024 Blood pressure systolic 190 mm Hg 03/25/2024 Weight 215 lbs 03/25/2024 BMI 39.32 kg/m2 03/25/2024 Encounters Encounter Location Date Provider Diagnosis [facility] [address] [place] [address] 03/25/2024 Devan Kirkpatrick Type 1 diabetes mellitus with diabetic polyneuropathy E10.42 ; Tinea unguium B35.1 ; Skin disease L98.9 ; Pain in right toe(s) M79.674 ; Pain in left toe(s) M79.675 ; Tinea pedis B35.3 ; Ingrowing nail L60.0 and Lymphedema I89.0 [facility] [address] [place] [address] 12/18/2023 [facility] [address] 03/25/2024 Devan Bulan Assessments Encounter Date Diagnosis (ICD Code) Assessment [...] X ray : Foot, left 3V 12/19/2022 83085-ELZG SKIN LESIONS, 2 TO 4 08/17/20 21 73445-BPII SKIN LESIONS, 2 TO 4 12/07/19 22 [id number] DYSTROPHIC NAILS ANY # [id number] DYSTROPHIC NAILS ANY # Insurance Providers Payer Name Payer Address Payer Phone Subscriber Number Group Number Insured Name Patient Relationship to Insured Coverage Start Date Coverage End Date Medicare National [employer] [address] [place] [address] [id number] Felecia Self Self - patient is the [facility] [address] [facility] [place] [address] [phone] [id number] Felecia Self Self - patient is the insured Medical (General) History Medical History History ICD Code Anemia asthma Back,Hip,and Knee pain Broken bones Cancer covid-19 High blood pressure Reflux ( GERD) Stomach ulcer Measles Chicken pox type II diabetes Surgical History Surgery Date(Month/Year) hysterectomy, vaginal endoscopic spinetoplast of major papila gall bladder inguinal hernia repair cyst removal-uterus Hospitalization History Reason Date(Month/Year) [facility] [place] pancreatitis 6 days 11/25/21 [facility] 5 day stay 07/2021
--- OUTSIDE RECORDS SUMMARY | 2024-11-17 14:14 | XMS_ITS ---
Author Organization [facility] Address [address] [place] [address] Care Team Providers Care Paper Winder Name Role Phone Armando Holloway MD Primary Care Provider Unavaila Saira Hurst Unavailable [phone] Devan Kirkpatrick [phone] REASON FOR VISIT Transfer to Different Provider Encounters Encounter Location Date Provider Diagnosis [facility] [address] [place] [address] 09/16/2024 Devan Kirkpatrick Plan Of Treatment No Information Progress Notes * Rachana SOLIMANOscarOB:1955 ( 69 yo F)Acc No.[id number]:09/16/2024 Progress Note Patient:Felecia AVILES Provider:?Devan Kirkpatrick DPM :1955???Age:69 Y???Sex:Female D ate:09/16/2024 Address:[address] [place] Pcp:Armando Holloway MD Subjective: * Chief Complaints: * ???1. Transfer to Different Provider. * Medical History:? Objective: * Vitals:? Assessment: Plan: * Treatment: * Images: * The named appointment provid er may or may not be the originator of this progress note, and it is not deemed complete until electronically signed by the appointment provider. Sign off status: Pending * Provider:?Devan Kirkpatrick DPM Date:? 025 Generated for Clemencia guadalupe/Hunter/Everitting on:?11/17/2024 02:14 PM EDT
--- OUTSIDE RECORDS SUMMARY | 2024-11-17 14:15 | XMS_ITS ---
Author Organization [facility] Address [address] [place] [address] Care Team Providers Care Specialist Wound Care Name Role Phone Armando Holloway MD Primary Care Provider Unavaila Saira Hurst Unavailable [phone] Riley Encounters Encounter Location Date Provider Diagnosis [facility] [address] [place] [address] 09/16/2024 Saira Willett Plan Of Treatment No Information Progress Notes * Rachana SOLIMANOscarOB:1955 ( 69 yo F)Acc No.[id number]:09/16/2024 Progress Note Patient:?Felecia SOLIMAN Provider:?Saira Willett DPM :1955???Age:69 Y???Sex:Female D ate:09/16/2024 Address:[address] [facility] Pcp:Armando Holloway MD Subjective: * Chief Complaints: * ???1. Dr Riley. * Medical History:? Objective: * Vitals:? Assessment: Plan: * Treatment: * Images: * The named appointment provid er may or may not be the originator of this progress note, and it is not deemed complete until electronically signed by the appointment provider. Sign off status: Pending * Provider:?Saira Willett DPM Date:?0 09/16/2024 Generated for Clemencia guadalupe/Hunter/eTransmitting on:?11/17/2024 02:15 PM EDT
--- OUTSIDE RECORDS SUMMARY | 2024-11-17 14:15 | XMS_ITS ---
Author Organization [facility] Address [address] [place] [address] Care Team Providers Care Mine Exploration Engineer Name Role Phone Armando Holloway MD Primary Care Provider UnavailSaira Swann Unavailable [phone] Devan Kirkpatrick Unavailable [phone] REASON FOR VISIT BUY Colig 10 Encounters Encounter Location Date Provider Diagnosis [facility] [address] [place] [address] 03/25/2024 Devan Kirkpatrick Plan Of Treatment No Information Progress Notes * Gavin SOLIMANOB:1955 ( 68 yo F)Acc No.[id number]:03/25/2024 Patient:?ClairRachanane :1955???Age:68 Y???Sex:Female [address]:[place] [address] * true * Date:? Generated for Printi ng/Faramang/eTransmitting on:?11/17/2024 02:15 PM EDT
--- OUTSIDE RECORDS SUMMARY | 2024-11-17 14:15 | XMS_ITS ---
Author Organization [facility] Address [address] [place] [address] Care Team Providers Care Weed Inspector Name Role Phone Armando Holloway MD Primary Care Provider Valeriano Dickerson [phone] REASON FOR VISIT no call/no show Encounters Encounter Location Date Provider Diagnosis [facility] [address] [place] [address] 10/27/2024 Valeriano Corona Plan Of Treatment Next Appt Details Provider Name:Valeriano Corona , 02/24/2025 01:40:00 PM, [address], [address], [place], [address], Progress Notes * CAROLEE SOLIMANNEDOB:1955 ( 69 yo F)Acc No.[id number]:10/27/2024 Patient:?NA SOLIMAN :1955???Age:69 Y???Sex:Female Address:[address] [place] [address] * true * Date:? Generated for Sheritai collins/Hunter/eTransmitting on:?11/17/2024 02:15 PM EDT
--- OUTSIDE RECORDS SUMMARY | 2024-11-17 14:15 | XMS_ITS ---
Author Organization [facility] Address [address] [place] [address] Care Team Providers Care Braker Passenger Train Name Role Phone Armando Holloway MD Primary Care Provider Valeriano Dickerson [phone] REASON FOR VISIT Patient presents today for abdominal pain Encounters Encounter Location Date Provider Diagnosis [facility] [address] [place] [address] 10/27/2024 Valeriano Corona Plan Of Treatment Next Appt Details Provider Name:Valeriano Corona , 02/24/2025 01:40:00 PM, [address], [address], [place], [address], Progress Notes * CAROLEE SOLIMANNEDOB:1955 ( 69 yo F)Acc No.[id number]:10/27/2024 Progress Notes Patient:?JOURDAN NA Provider:?Valeriano Corona MD :1955???Age:69 Y???Sex:Female D ate:10/27/2024 Address:[address] [place] [address] Pcp:Armando Holloway MD Subjective: * Chief Complaints: * ???1. Patient presents today for abdominal pain. * Medical History:? Objective: * Vitals:? Assessment: Plan: * Treatment: * * The named appointment provid er may or may not be the originator of this progress note, and it is not deemed complete until electronically signed by the appointment provider. Sign off status: Pending * Provider:?Valeriano Corona MD Date:? 025 Generated for Clemencia guadalupe/Hunter/Juliana on:?11/17/2024 02:14 PM EDT
--- OUTSIDE RECORDS SUMMARY | 2024-11-17 14:15 | XMS_ITS ---
Author Organization [facility] Address [address] [place] [id number] Care Team Providers Care Traverse Rod Assembler Name Role Phone Armando Holloway MD Primary Care Provider Valeriano Dickerson [phone] REASON FOR VISIT on voicemail refill Medications Medication SIG (Take, Route, Fr equency, Duration) Notes Start Date End Date Status Lansoprazole 30 MG 1 Orally Twice a day for 90 days 08/15/2023 Active Encounters Encounter Location Date Provider Diagnosis [facility] [address] [place] [phone] 08/13/2023 Valeriano Corona Plan Of Treatment Medication Medication Name Sig Start Date Stop Date Notes Lansoprazole 30 MG 1 Orally Twice a day for 90 days 2022 Next Appt Details Provider Name:Valeriano Corona , 02/24/2025 01:40:00 PM, [address] [place] [address], [address], [id number], Progress Notes * CAROLEE SOLIMANNEDOB:1955 ( 68 yo F)Acc No.[id number]:08/13/2023 Patient:?JOURDANCAROLEENE :1955???Age:68 Y???Sex:Female Address:[address] [place] [id number] * Refills? Start Lansoprazole Capsule Delayed Release, 30 MG, Orally, 180, 1, Twice a day, 90 days, Refills=3 * true * Date:? Generated for Clemencia guadalupe/Hunter/Everitting on:?11/17/2024 02:14 PM EDT
--- NOTE | 2024-11-17 15:00 | P.HPHOSP_ITS ---
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 Diabetes type 2, uncontrolled Cervical cancer Other and unspecified hyperlipidemia Essential hypertension Vitamin D deficiency T2DM (type 2 diabetes mellitus) HLD (hyperlipidemia) HTN (hypertension) Pancreatitis Accelerated essential hypertension Embolism Family History Father Diabetes Mother Diabetes Surgical History History of esophagogastroduodenoscopy (EGD) Hx of colonoscopy Hx of removal of cyst Hx of hernia repair Hx of cholecystectomy Hx of endoscopy Hx of hysterectomy Social History Household Members: Spouse Housing: House Do you presently have visiting nurse or other home services: No Alcohol intake: never Comment: sleeping Patient Tobacco Use Status: Former Tobacco user Smoked in Last 30 Days: No e-Cigarette/Vaping Use: Never Used Use of substances other than those prescribed or required for medical reasons: No Advance Directives: No Advance Directives Information Provided: Yes service: No Current occupational status: employed and unemployed Current occupation: [employer] Meds Allergies Allergy/AdvReac Type Severity Reaction Status Date / Time gentamicin Allergy Severe Difficulty Verified 11/17/24 11:05 Breathing Iodinated Contrast Media Allergy Severe Difficulty Verified 11/17/24 11:05 Breathing, nausea and vomiting latex [LATEX] Allergy Severe Anaphylaxis Verified 11/17/24 11:05 morphine Allergy Severe Anaphylaxis Verified 11/17/24 11:05 Penicillins Allergy Severe stopped Verified 11/17/24 11:05 breathing as an shellfish derived Allergy Severe Difficulty Verified 11/17/24 11:05 [SHELLFISH DERIVED] Breathing, swelling vancomycin Allergy Severe Difficulty Verified 11/17/24 11:05 Breathing azithromycin Allergy Unknown Unknown Verified 11/17/24 11:05 erythromycin base Allergy Unknown Unknown Verified 11/17/24 11:05 esomeprazole Allergy Unknown Unknown Verified 11/17/24 11:05 pantoprazole AdvReac Mild Nausea and Verified 11/17/24 11:05 Vomiting Active Medications: Current Medications Dextrose (Dextrose 50 % 25 Gm/50 Ml Syringe) 25 gm IVPUSH Q30M PRN PRN Reason: BG < 70 Magnesium Sulfate (Magnesium Sulfate/H2o) 2 gm in 50 mls @ 25 mls/hr IV ONCE ONE Stop: 11/17/24 15:27 Last Admin: 11/17/24 13:44 Dose: 25 mls/hr Insulin Human Regular (Myxredlin) 100 unit in 100 mls @ 9 mls/hr IVCONT .Q11H7M [facility]; Protocol Home Medications ?Medication ?Instructions ?Recorded ?Confirmed ?Last Taken ?Type gabapentin 300 mg capsule 3 cap PO BEDTIME 05/24/22 07/30/24 Unknown History oxycodone 10 mg tablet 1 tab PO QID PRN Pain 05/24/22 07/30/24 Unknown History amlodipine 10 mg tablet 10 mg PO DAILY 01/27/24 07/30/24 Unknown History atorvastatin 40 mg tablet 40 mg PO DAILY 01/27/24 07/30/24 Unknown History fenofibrate nanocrystallized 145 145 mg PO DAILY 01/27/24 07/30/24 Unknown History mg tablet metoprolol tartrate 100 mg tablet 100 mg PO BID 01/27/24 07/30/24 Unknown History insulin detemir U-100 100 unit/mL 86 unit subcut TID 04/24/24 07/30/24 Unknown History (3 mL) subcutaneous pen (Levemir FlexTouch U-100 Insulin) clindamycin HCl 300 mg capsule 300 mg PO Q12H 04/28/24 07/30/24 Unknown History nystatin 100,000 unit/gram topical topical BID 04/28/24 07/30/24 Unknown History powder ([facility]) torsemide 20 mg tablet 40 mg PO QAM 04/28/24 07/30/24 Unknown History enalapril maleate 20 mg tablet 20 mg PO BID 07/30/24 07/30/24 Unknown History lansoprazole 30 mg capsule,delayed 30 mg PO BID 11/21/24 11/21/24 Unknown History release Physical Exam 2 Vital Signs and Narrative: Vital Signs: Last Vital Signs Temp 96 F L 11/17/24 10:56 Pulse 72 11/17/24 14:37 Resp 14 11/17/24 14:37 BP 168/79 H 11/17/24 14:37 Pulse Ox 93 11/17/24 14:37 O2 Del Method Room Air 11/17/24 14:37 BMI result Body Mass Index 40.3 Results Labs 11/17/24 11:25 11/17/24 11:25 Labs: Laboratory Results - last 24 hr 11/17/24 11/17/24 11/17/24 11:25 13:25 13:30 MCV 85.0 MCH 28.4 MCHC 33.4 RDW 13.9 Plt Count 274 MPV 11.0 Immature Gran % (Auto) 0.3 Neut % (Auto) 84.2 H Lymph % (Auto) 9.8 L [place] % (Auto) 4.2 Eos % (Auto) 0.9 Baso % (Auto) 0.6 Lymph # (Auto) 1.1 L [place] # (Auto) 0.5 Eos # (Auto) 0.1 Baso # (Auto) 0.1 Abs Immat Gran (auto) 0.04 H Absolute Neuts (auto) 9.7 H Absolute Nucleated RBC 0.000 Nucleated RBC % (auto) 0.0 PT 11.4 INR 1.0 VBG pH 7.40 VBG pCO2 44 VBG pO2 80 VBG HCO3 28 H VBG O2 Saturation 96.0 VBG Base Excess 3.2 Anion Gap 13 Estim Creat Clear Calc 50.9 Estimated GFR 48 Random Glucose 414 H* Calcium 9.3 Magnesium 1.5 L Total Bilirubin 0.4 AST 51 H ALT 19 Alkaline Phosphatase 102 Total Protein 7.8 Albumin 3.7 Triglycerides 952 H Lipase 1428 H Beta-Hydroxybutyrate 0.12 Urine Color Yellow Urine Appearance Clear Urine pH 6.5 Ur Specific [place] >= 1.030 H Urine Protein 300 (3+) H Urine Glucose (UA) >=1000 H Urine Ketones Negative Urine Blood Negative Urine Nitrite Negative Ur Leukocyte Esterase Negative Urine RBC 0-2 Urine WBC 0-5 Ur Squamous Epith Cells 3-5 Urine Bacteria None Seen Hyaline Casts 0-2 Ethyl Alcohol < 10 Imaging Radiologist's Impressions: Impressions Abdomen/Pelvis CT 03/11/25 13:51 IMPRESSION: Acute pancreatitis without gross fluid collections, lesser sac or peritoneal cavity. Atherosclerosis disease. Calcified plaque mitral valve. Diverticular disease, left hemicolon. Multilevel spondylosis resulting in central spinal canal and bilateral neuroforamina stenosis L4-5 and L5-S1. Fleischner guidelines were followed. Electronically signed by: Catalino Williamson MD 11/17/2024 02:16 PM EDT Assessment and Plan Plan 69-year-old female with history of insulin-dependent type 2 diabetes, history of cervical and endometrial cancer, hypertension, hyperlipidemia, GERD, Ro's esophagus, history of pulmonary embolism no longer on anticoagulation, and history of pancreatitis
[2024-11-17 15:17] LABS: Glucose, Whole Blood 290 mg/dL (60-115)
--- NOTE | 2024-11-17 15:26 | PC.NURSE ---
PROVIDER AWARE OF UPDATED POC, PLAN TO START INSULIN DRIP WITH D5
[2024-11-17] MEDS: Dextrose 5 % 1,000 ML 50 ML IVCONT (15:28)
[2024-11-17] MEDS: Insulin Regular/NS 100 UNIT/100 ML PLAST..BAG 9 UNIT IVCONT (15:31)
--- NOTE | 2024-11-17 15:34 | PC.NURSE ---
Insulin started with 2 RNs verifying. D5 and infusing infusing. Pt alert and oriented, breathing even and unlabored. Pt reporting feeling overall better after medications. Plan for Q1 POC
--- NOTE | 2024-11-17 15:44 | PHA.MEDREC ---
Addendum entered by Ricky Gibson RPh 11/17/24 18:18: Med rec was reviewed by [facility]. Per Bernadine, patient said she is no taking amlodipine. Original Note: Pharmacy Consult ? Medication Reconciliation Pharmacy has completed the medication reconciliation. Spoke with patient and she confirmed her medications. Patient confirmed she is now taking 2 capsules (600mg) of the Gabapentin at bedtime instead of 3 (900mg) and states it was working for her. She confirmed her Lantus and stated she was taking it twice times a day but started crashing and recently started taking 60 units three times a day to try and prolong it and help her from crashing but it has not been helping. She also confirmed she is taking the Metoprolol 100mg tab and states she has been taking 2 tabs (200mg) at bedtime instead of 1 tab (100mg) twice a day. She confirmed she still has the Oxycodone 10mg tabs at home as needed. She states she took her morning medications including 60 units of the Lantus this morning.
[2024-11-17 16:21] LABS: Glucose, Whole Blood 257 mg/dL (60-115)
--- NOTE | 2024-11-17 17:05 | PC.NURSE ---
LATE ENTRY: Per Dr. Zhang the insulin will be going at a flat rate of 10 units/hr with Q1 hour checks, goal POC 150-200, stop when triglycerides are <500. UPDATED PER NOV. D5 AND INSULIN DRIPS INFUSING AT THIS TIME.
--- NOTE | 2024-11-17 17:16 | PC.NURSE ---
PROVIDER AWARE OF HIGH BP, PLAN TO GIVE PAIN MEDS AND REEVAL
[2024-11-17 17:19] LABS: Glucose, Whole Blood 178 mg/dL (60-115)
--- NOTE | 2024-11-17 17:54 | PC.NURSE ---
report given to Dustin [place] at ICU in [place]. Report given to THERON Flowers. Pt transferred
== END 2024-11-17 17:55 | disposition short-term general hospital (02) ==
PROVIDERS: Physician Assistant; Student in an Organized Health Care Education/Training Program; Emergency Provider Emergency Medicine Emergency Medical Services
DX: K85.90 Acute pancreatitis without necrosis or infection, unspecified (principal); E11.65 Type 2 diabetes mellitus with hyperglycemia; E83.42 Hypomagnesemia; E78.1 Pure hyperglyceridemia; R94.31 Abnormal electrocardiogram [ECG] [EKG]; I25.10 Atherosclerotic heart disease of native coronary artery without angina pectoris; R11.2 Nausea with vomiting, unspecified; R10.2 Pelvic and perineal pain; Z79.4 Long term (current) use of insulin; Z79.899 Other long term (current) drug therapy; Z87.891 Personal history of nicotine dependence; Z51.81 Encounter for therapeutic drug level monitoring
CPT/HCPCS: 36415; 74176; 80053; 80307; 81001; 82010; 82803; 82947; 83690; 83735; 84478; 85025; 85610; 93005; 96361; 96365; 96366; 96375; 96376; 99285; 99291; 99292; J1171; J1200; J1630; J3475

== ENCOUNTER → 2024-11-17 11:05 | Outpatient (BNV) | payer MEDICARE, OTHER, SELFPAY | PROVIDERS: Emergency Provider Emergency Medicine Emergency Medical Services; Visit Provider Internal Medicine | DX: R94.31 Abnormal electrocardiogram [ECG] [EKG] (principal); R10.9 Unspecified abdominal pain | CPT/HCPCS: 93010 ==

== ENCOUNTER → 2024-11-17 12:22 | Outpatient (BNV) | payer MEDICARE, OTHER, SELFPAY | PROVIDERS: Emergency Provider Student in an Organized Health Care Education/Training Program; Visit Provider Radiology Diagnostic Radiology | DX: R10.9 Unspecified abdominal pain (principal) | CPT/HCPCS: 74176 ==

== ENCOUNTER 2024-12-02 09:15 | Outpatient (AMB) | payer MEDICARE, OTHER, SELFPAY ==
--- NOTE | 2024-12-02 09:29 | MHC.PC.OV ---
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 Accompanied by: Spouse Allergies gentamicin Allergy (Severe, Verified 12/02/24 09:42) Difficulty Breathing Iodinated Contrast Media Allergy (Severe, Verified 12/02/24 09:42) Difficulty Breathing, nausea and vomiting latex [LATEX] Allergy (Severe, Verified 12/02/24 09:42) Anaphylaxis morphine Allergy (Severe, Verified 12/02/24 09:42) Anaphylaxis Penicillins Allergy (Severe, Verified 12/02/24 09:42) stopped breathing as an shellfish derived [SHELLFISH DERIVED] Allergy (Severe, Verified 12/02/24 09:42) Difficulty Breathing, swelling vancomycin Allergy (Severe, Verified 12/02/24 09:42) Difficulty Breathing azithromycin Allergy (Unknown, Verified 12/02/24 09:42) Unknown erythromycin base Allergy (Unknown, Verified 12/02/24 09:42) Unknown esomeprazole Allergy (Unknown, Verified 12/02/24 09:42) Unknown pantoprazole Adverse Reaction (Mild, Verified 12/02/24 09:42) Nausea and Vomiting Tobacco use date assessed: 12/02/24 Fall risk assessment: No Falls in past year Last assessed Fall Risk: 12/02/24 Dental Screening Dental Screen Date: 12/02/24 Did you have a dental visit in the last 12 months?: Yes Did you have a dental problem in the last 6 months where you did not have access to dental care?: No [facility] Medical History (Updated 12/02/24 @ 09:59 by Christopher Bellamy MD) Pancreatitis Chronic pancreatitis Hypertriglyceridemia Asthma Endometrial cancer Barretts esophagus GERD (gastroesophageal reflux disease) Pancreatic divisum 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 Diabetes type 2, uncontrolled Cervical cancer Other and unspecified hyperlipidemia Essential hypertension Vitamin D deficiency T2DM (type 2 diabetes mellitus) HLD (hyperlipidemia) HTN (hypertension) Accelerated essential hypertension Embolism Surgical History History of esophagogastroduodenoscopy (EGD) Hx of colonoscopy Hx of removal of cyst Hx of hernia repair Hx of cholecystectomy Hx of endoscopy Hx of hysterectomy Family History Father Diabetes Mother Diabetes Social History Household Members: Spouse Housing: House Do you presently have visiting nurse or other home services: No Alcohol intake: never Comment: sleeping Patient Tobacco Use Status: Former Tobacco user e-Cigarette/Vaping Use: Former Use service: No Current occupational status: employed Current occupation: [employer] Cognitive needs: No Hearing needs: No Vision needs: Yes (rx glasses) Questionnaire PHQ-9 Over the last 2 weeks, how often have you been bothered by any of the following problems? 1. Little interest or pleasure in doing things: not at all 2. Feeling down, depressed, or hopeless: not at all 3. Trouble falling or staying asleep, or sleeping too much: not at all 4. Feeling tired or having little energy: not at all 5. Poor appetite or overeating: not at all 6. Feeling bad about yourself - or that you are a failure or have let yourself or your family down: not at all 7. Trouble concentrating on things, such as reading the newspaper or watching television: not at all 8. Moving or speaking so slowly that other people could have noticed. Or the opposite - being so fidgety or restless that you have been moving around a lot more than usual: not at all 9. Thoughts that you would be better off or of hurting yourself in some way: not at all Total score: 0 Source: Developed by Drs. Valeriano Danielson, Dina Olivares, Johnson Pierre and colleagues, with an educational margy from [employer]. Thrive Questionnaire Date Thrive assessed: 12/02/24 I am a: Patient Within the past 12 months, did the food you bought not last and you didn't have the money to get more?: Never true Within the past 12 months, did you worry whether your food would run out before you got money to buy more?: Never true Do you have trouble paying for medicines?: No Do you have trouble getting transportation to medical appointments?: No Do you have trouble paying your heating and electricity bill?: No Do you have trouble taking care of your child, family member or friend?: No Do you have trouble with day-to-day activities such as bathing, preparing meals, shopping, managing finances, etc.?: No Are you currently unemployed and looking for a job?: No Are you interested in more education?: No THRIVE Score: 0 AUDIT C Alcohol Use Questionnaire (AUDIT-C) 1. How often do you have a drink containing alcohol?: Never 3. How often do you have six or more drinks on one occasion?: Never Total Score: 0 PARISH-7 AMB Questionnaire PARISH-7 Date PARISH - 7 assessed: 12/02/24 Feeling nervous, anxious, or on edge: 0 = Not at all Not being able to stop or control worryin = Not at all Worrying too much about different things: 0 = Not at all Trouble relaxin = Not at all Being so restless that it is hard to sit still: 0 = Not at all Becoming easily annoyed or irritable: 0 = Not at all Feeling afraid as if something awful might happen: 0 = Not at all Total PARISH-7 score (0-4 normal; 5-9 mild; 10-14 moderate; 15-21 severe): 0 Source: Developed by Drs. Valeriano Danielson, Dina Olivares, Johnson Pierre and colleagues, with an educational margy from [employer]. Physical exam (Primary Care) Vital Signs: Last Vital Signs Temp 96.6 F L 12/02/24 09:37 Pulse 62 12/02/24 09:37 BP 138/80 12/02/24 09:37 Pulse Ox 99 12/02/24 09:37 Oxygen Delivery Method Room Air 12/02/24 09:37 Tobacco/Smoking Status: Tobacco use Status Tobacco use date assessed 12/02/24 12/02/24 09:34 Patient Tobacco Use Status Former Tobacco user 12/02/24 09:31 e-Cigarette/Vaping Use Former Use 12/02/24 09:47 PHQ-9: PHQ-9 Score PHQ-9: Total score 0 12/02/24 09:47 Thrive Assessment: Date of Thrive Assessment Date Thrive assessed 12/02/24 12/02/24 09:34 Coding Level of Care Code New Pt Level 4 (04025) Complex EM visit Add On G2211 Diagnoses Chronic pancreatitis K86.1 Assessment & Plan Assessment & Plan (1) Chronic pancreatitis: Code(s): K86.1 - Other chronic pancreatitis Category: Medical Plan: ER note from [facility] reviewed. Records from [facility] requested. Clinically improved. Rpt BW and A1c. Continue pain management with Oxycodone. A1c requested, insulin will be adjusted based on those results Plan History of Present Illness The patient is a 69-year-old female presenting with chronic pancreatitis and diabetes management. The chronic pancreatitis has been a recurring issue for the patient, with a recent exacerbation leading to hospitalization at [facility]. She was admitted for ten days, during which the pancreatitis flared, causing significant pain while eating. A CT scan during her hospitalization identified fluid accumulation around her stomach and small intestines. This has been a persistent condition exacerbated by hypertriglyceridemia, as indicated by her recollection of past discussions about potential causes of her pancreatitis. She reports that she was assessed for gallstones and abstains from alcohol, leaving hypertriglyceridemia as a recurrent trigger for her pancreatitis. Regarding her diabetes management, the patient has been on insulin therapy for several years following a history of gestational diabetes. She experiences episodes of hypoglycemia, most notably during a recent cruise where her glucose level dropped to 40 mg/dL, which was attributed to a urinary tract infection she had at that time. She has since adjusted her insulin regimen, taking Lantus at 25 units twice daily in addition to short-acting insulin on a sliding scale, with her overall insulin needs fluctuating due to variable blood glucose levels. The rationale for the twice-daily Lantus dosing is to prevent spikes due to its perceived shorter duration of effectiveness. 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 [employer] - Resume includes participation in a recent cruise Review of Systems - Gastrointestinal: Reports painful eating - Endocrine: Denies hypoglycemia after adjusting insulin; previously experienced during a trip Physical Exam General: Cooperative and healthy appearing Nutritional Appearance: Well nourished Orientation/consciousness: Patient oriented x3 Limitations: No limitations Head: Normal to inspection General: Appearance normal, both eyes and all related structures Neck: Normal visual inspection Chest: Normal palpation of entire chest wall Respiratory: Normal respiratory effort Neurology: Patient oriented x3 Results - Imaging: CT scan identified fluid accumulation around the stomach and small intestines. Plan I will monitor the patient's chronic pancreatitis by conducting baseline blood work and referring her to a commercial loan closer for further evaluation. Emphasis will be on maintaining a low-fat diet and monitoring for elevated triglycerides. Her diabetes management will continue with her current insulin regimen, addressing any issues during our next encounter. Pain management will be maintained with cautious use of oxycodone. Future follow-up will occur in four weeks to ensure her conditions are adequately controlled. Patient was informed and verbally consented to the use of an ambient scribe for clinic note documentation during this visit. Discussion Notes Throughout our discussion, I emphasized the importance of managing her chronic pancreatitis through diet modifications and specialist referral to Dr. Corona. We discussed maintaining her current insulin regimen for diabetes management and handling episodes of hypoglycemia with adjustments. I highlighted the addictive potential of oxycodone and endorsed a twice-daily limit. We discussed the need for future follow-up to continue assessing her health status, ensuring that our management remains optimal. Plans were made to review baseline blood work to guide our treatment moving forward. Patient Instructions - Follow a low-fat diet to help manage pancreatitis. - Continue current insulin regimen as prescribed: Lantus 25 units twice daily, and use sliding scale for short-acting insulin. - Limit oxycodone use to twice daily, and contact the pharmacy for refills when needed. - Attend a follow-up appointment in four weeks for reassessment. - Complete blood work as requested to evaluate current health status. - Inform me if unable to secure an appointment with Dr. Corona. Orders: Orders UA and rflx microscopic Today K86.1 - Other chronic pancreatitis Amylase Today K85.90 - Acute pancreatitis without necrosis or infection, unspecified, K86.1 - Other chronic pancreatitis Complete Blood Count no Diff Today K86.1 - Other chronic pancreatitis Basic Metabolic Panel Today K86.1 - Other chronic pancreatitis Hemoglobin A1c Today K86.1 - Other chronic pancreatitis Lipase Today K85.90 - Acute pancreatitis without necrosis or infection, unspecified, K86.1 - Other chronic pancreatitis Liver Panel Today K86.1 - Other chronic pancreatitis Lipid Panel Today K86.1 - Other chronic pancreatitis Thyroid Stimulating Hormone Today K86.1 - Other chronic pancreatitis Referrals Gastroenterology Referral K86.1 - Other chronic pancreatitis
[2024-12-02 09:37] VITALS: BP 138/80; PULSE 62; TEMP 35.9; O2SAT 99
--- OUTSIDE RECORDS SUMMARY | 2024-12-02 10:08 | XMS_ITS ---
Author Organization [facility] Address [address] [place] [address] Care Team Providers Care Oil Well Pumper Name Role Phone Armando Holloway MD Primary Care Provider Valeriano Dickerson [phone] REASON FOR VISIT Patient presents today for abdominal pain Encounters Encounter Location Date Provider Diagnosis [facility] [address] [place] [address] 10/27/2024 Valeriano Corona Plan Of Treatment Next Appt Details Provider Name:Valeriano Corona , 02/24/2025 01:40:00 PM, [address], [address], [place], [address], Progress Notes * CAROLEE SOLIMANNEDOB:1955 ( 69 yo F)Acc No.[id number]:10/27/2024 Progress Notes Patient:?JOURDAN NA Provider:?Valeriano Corona MD :1955???Age:69 Y???Sex:Female D ate:10/27/2024 Address:[address] [place] [address] Pcp:Armando Holloway MD Subjective: * Chief Complaints: [...] MD Date:? 025 Generated for Clemencia guadalupe/Hunter/Juliana on:?12/02/2024 10:08 AM EDT
--- OUTSIDE RECORDS SUMMARY | 2024-12-02 10:08 | XMS_ITS | Patient Health Record ---
[facility] Address [address] [place] [address] Care Team Providers Care Qc Analyst Name Role Phone Armando Holloway MD Primary Care Provider Saira Carranza Unavailable [phone] Devan Kirkpatrick Unavailable [phone] Allergies Allergen (clinical drug ingredient) Drug/Non Drug [...] Polyneuropathy due to type 2 diabetes mellitus (928294123) Type 2 diabetes mellitus with diabetic polyneuropathy (E11.42) Active confirmed Problem Polyneuropathy due to diabetes mellitus type I (986518932) Type 1 diabetes mellitus with diabetic polyneuropathy (E10.42) Active confirmed Problem [id number] Lymphedema (I89.0) Active confirmed Vital Signs Blood pressure diastolic 70 mm Hg 03/25/2024 Height 5ft2in in 03/25/2024 Blood pressure systolic 190 mm Hg 03/25/2024 Weight 215 lbs 03/25/2024 BMI 39.32 kg/m2 03/25/2024 Encounters Encounter Location Date Provider Diagnosis [facility] [address] [place] [address] 03/25/2024 Devan Kirkpatrick Type 1 diabetes mellitus with diabetic polyneuropathy E10.42 ; Tinea unguium B35.1 ; Skin disease L98.9 ; Pain in right toe(s) M79.674 ; Pain in left toe(s) M79.675 ; Tinea pedis B35.3 ; Ingrowing nail L60.0 and Lymphedema I89.0 [facility] [address] [place] [address] 12/18/2023 [facility] [address] 03/25/2024 Devan Redwood Assessments Encounter Date Diagnosis (ICD Code) Assessment [...] X ray : Foot, left 3V 12/19/2022 27003-BIOP SKIN LESIONS, 2 TO 4 08/17/20 21 64661-SUQH SKIN LESIONS, 2 TO 4 12/07/19 22 K8994-JUHAZYRV DYSTROPHIC NAILS ANY # C7325-ILHNOVDL DYSTROPHIC NAILS ANY # Insurance Providers Payer Name Payer Address Payer Phone Subscriber Number Group Number Insured Name Patient Relationship to Insured Coverage Start Date Coverage End Date Medicare [employer] [address] [place] [address] [id number] Felecia Self Self - patient is the [facility] [address] [facility] [address] [id number] Felecia Self Self - patient is the insured Medical (General) History Medical History History ICD Code Anemia asthma Back,Hip,and Knee pain Broken bones Cancer covid-19 High blood pressure Reflux ( GERD) Stomach ulcer Measles Chicken pox type II diabetes Surgical History Surgery Date(Month/Year) hysterectomy, vaginal endoscopic spinetoplast of major papila gall bladder inguinal hernia repair cyst removal-uterus Hospitalization History Reason Date(Month/Year) [facility] pancreatitis 6 days 11/25/21 [facility] 5 day stay 07/2021
--- OUTSIDE RECORDS SUMMARY | 2024-12-02 10:08 | XMS_ITS ---
Author Organization [facility] Address [address] [place] [address] Care Team Providers Care Landscape Specialist Name Role Phone Armando Holloway MD Primary Care Provider Unavaila Saira Hurst Unavailable [phone] Devan Kirkpatrick [phone] REASON FOR VISIT Transfer to Different Provider Encounters Encounter Location Date Provider Diagnosis [facility] [address] [place] [address] 09/16/2024 Devan Kirkpatrick Plan Of Treatment No Information Progress Notes * Rachana SOLIMANOscarOB:1955 ( 69 yo F)Acc No.[id number]:09/16/2024 Progress Note Patient:Felecia AVILES Provider:?Devan Kirkpatrick DPM :1955???Age:69 Y???Sex:Female D ate:09/16/2024 Address:[address] [place] Pcp:Armando Holloway MD Subjective: * Chief Complaints: [...] DPM Date:? 025 Generated for Clemencia guadalupe/Hunter/Everitting on:?12/02/2024 10:07 AM EDT
--- OUTSIDE RECORDS SUMMARY | 2024-12-02 10:08 | XMS_ITS | Clinical Summary ---
Author Organization [facility] Address [address] [place] [address] Care Team Providers Care Charge Master Specialist Name Role Phone Pcp, No Primary Care Provider Unavailabl e Allergies Active Allergy Reactions Criticality Noted Date Comments Azithromycin Unknown/Patient and Family Unable to Define Medium 11/17/2024 Erythromycin Unknown/Patient and Family Unable to Define Medium 11/17/2024 Esomeprazole Unknown/Patient and Family Unable to Define Medium 11/17/2024 Gentamicin Respiratory distress High 11/17/2024 Iodinated Contrast Media Respiratory distress High 0 11/17/2024 Latex Anaphylaxis High 11/17/2024 Morphine Anaphylaxis High 11/17/2024 Pantoprazole GI Intolerance/Nausea/Vomitin g Low 11/17/2024 Penicillins Respiratory distress High 11/17/2024 Shellfish-Derived Products Respiratory distress High 11/17/2024 Vancomycin Respiratory distress High 11/17/2024 Medications Medication Sig Dispensed Refills Start Date End Date Status albuterol (PROVENTIL HFA; VENTOLIN HFA) 108 (90 Base) MCG/ACT inhaler Inhale 2 puffs Every 4 (four) to 6 (six) hours as needed. Active atorvastatin (LIPITOR) 40 MG tablet Take 1 tablet (40 mg total) by mouth daily. Active enalapril (VASOTEC) 20 MG tablet Take 1 tablet (20 mg total) by mouth 2 times a day. Active fenofibrate (TRICOR) 145 MG tablet Take 1 tablet (145 mg total) by mouth daily. Active gabapentin (NEURONTIN) 300 MG capsule Take 2 capsules (600 mg total) by mouth nightly. Active hydrALAZINE (APRESOLINE) 50 MG tablet Take 1 tablet (50 mg total) by mouth 3 (three) times a day. Active metoPROLOL TARTRATE (LOPRESSOR) 100 MG tablet 2 tablets (200 mg total) by Mouth/Oral Cavity route nightly. 5 Active albuterol (PROVENTIL) (0.083%) 2.5 mg/3 mL nebulizer solution Take 3 mL (2.5 mg total) by nebulization 4 times daily (every 6 hours) as needed. Active Lantus SoloStar 100 UNIT/ML prefilled pen injectionIndicat ions:Type 2 diabetes mellitus without complication, with long-term current use of insulin (HCC) Inject 15 Units under the skin 2 (two) times a day. 15 mL 5 Active pancrelipase (CREON) [address] Particles capsuleIndicatio ns:Severe acute pancreatitis Take 1 capsule (12,000 Units total) by mouth 3 (three) times a day with meals. Dose is in units of lipase. 90 capsule 5 12/25/19 25 Active PANTOprazole (PROTONIX) 40 MG EC tabletIndication s:Ro's esophagus with dysplasia Take 1 tablet (40 mg total) by mouth daily. 30 tablet 5 12/26/19 25 Active oxyCODONE (ROXICODONE) 10 mg immediate release tabletIndication s:Severe acute pancreatitis Take 1 tablet (10 mg total) by mouth 3 (three) times a day as needed for severe pain. Max Daily Amount: 30 mg 42 tablet 5 12/09/19 25 Active amLODIPine (NORVASC) 10 MG tablet Take 1 tablet (10 mg total) by mouth daily. 11/19/19 25 Discontinued( erapy completed) Lantus SoloStar 100 UNIT/ML prefilled pen injection Inject 40 Units under the skin 2 (two) times a day. 5 11/25/19 25 Discontinued isosorbide mononitrate (IMDUR) 30 MG 24 hr tablet Take 1 tablet (30 mg total) by mouth daily. 4 11/19/19 25 Discontinued( erapy completed) oxyCODONE (ROXICODONE) 10 mg immediate release tablet Take 1 tablet (10 mg total) by mouth 3 (three) times a day as needed. 11/25/19 25 Discontinued lansoprazole (PREVACID) 30 MG capsule Take 1 capsule (30 mg total) by mouth 2 (two) times a day before meals. 11/25/19 25 Discontinued(St op Taking at Discharge) cefUROXime (CEFTIN) 250 mg tabletIndication s:Acute cystitis without hematuria Take 1 tablet (250 mg total) by mouth 2 (two) times a day. Do not start before November 25, 2024. 2 tablet 11/27/19 25 Active Problems Problem Noted Date Diagnosed Date UTI (urinary tract infection) 11/22/2024 Assessment & Plan (11/23/2024 3:31 PM EDT): Urine cultures are positive for Klebsiella sensitive to Rocephin Assessment & Plan (11/22/2024 11:29 AM EDT): Patient been having dysuria and suprapubic pain Urinalysis consistent with UTI Urine cultures are pending Will continue Rocephin Diarrhea 11/20/2024 Assessment & Plan (11/23/2024 3:31 PM EDT): Likely due to pancreatitis Will start Creon and monitor for worsening abdominal symptoms Assessment & Plan (11/22/2024 11:29 AM EDT): C. difficile/GI PCR negative Will DC precautions Assessment & Plan (11/21/2024 1:56 PM EDT): C. difficile, GI PCR negative Patient has previously tried pancrelipase but had pancreatitis Assessment & Plan (11/20/2024 3:30 PM EDT): GI PCR, C. difficile testing has been ordered Swelling of right upper extremity 11/19/2024 Assessment & Plan (11/23/2024 3:31 PM EDT): Continue with compression Results negative for DVT Assessment & Plan (11/22/2024 11:29 AM EDT): Swelling is slowly improving Ultrasound was negative for DVT Assessment & Plan (11/21/2024 1:56 PM EDT): Ultrasounds negative for DVT Assessment & Plan (11/20/2024 3:30 PM EDT): Ultrasound is negative for DVT Assessment & Plan (11/19/2024 12:31 PM EDT): Will obtain ultrasound Electrolyte abnormality 11/19/2024 Assessment & Plan (11/23/2024 3:31 PM EDT): Resolved Assessment & Plan (11/22/2024 11:29 AM EDT): Resolved Assessment & Plan (11/21/2024 1:56 PM EDT): Resolved Assessment & Plan (11/20/2024 3:30 PM EDT): Resolved Assessment & Plan (11/19/2024 12:31 PM EDT): Hypokalemia, resolved Hypophosphatemia, resolved Severe acute pancreatitis 11/17/2024 Assessment & Plan (11/23/2024 3:31 PM EDT): Triglycerides slowly trending down, patient abdominal pain has worsened We will reconsult GI Will obtain CT abdomen and labs including lipase level Assessment & Plan (11/22/2024 11:29 AM EDT): Slowly improving, triglyceride level continues to trend down GI team has been initially following and recommended outpatient follow-up with GI and likely referral for lipid specialist from her GI Continue statin, fenofibrate Pain meds as needed, low-fat diet Assessment & Plan (11/21/2024 1:56 PM EDT): Symptoms are slowly improving, she continues to have ongoing postprandial pain GI team has been following recommend outpatient follow-up with GI and likely lipid specialist Continue with home oral pain meds and breakthrough IV pain meds as needed Continue with statin and fenofibrate Assessment & Plan (11/20/2024 3:30 PM EDT): Slowly improving Continue with IV fluids Pain meds per pain scale Will resume home oral pain meds and continue with IV Dilaudid as needed for breakthrough Continue statin and fenofibrate Patient will need outpatient follow-up with GI Assessment & Plan (11/19/2024 12:31 PM EDT): History of pancreatic divisum and recurrent acute pancreatitis Lipase level of 137 today, triglyceride 358, overall downtrending Continue with statin, fenofibrate Continue with gentle IV fluids GI team is following recommendations appreciated She is currently on a clear liquid diet, will slowly advance with improvement in her symptoms Asthma Assessment & Plan (11/23/2024 3:31 PM EDT): Not in exacerbation Assessment & Plan (11/22/2024 11:29 AM EDT): Not in exacerbation Assessment & Plan (11/21/2024 1:56 PM EDT): Not in exacerbation Assessment & Plan (11/20/2024 3:30 PM EDT): Not in exacerbation Assessment & Plan (11/19/2024 12:31 PM EDT): Not in exacerbation Ro's esophagus Assessment & Plan (11/23/2024 3:31 PM EDT): Continue PPI Assessment & Plan (11/22/2024 11:29 AM EDT): Continue PPI Assessment & Plan (11/21/2024 1:56 PM EDT): Continue PPI Assessment & Plan (11/20/2024 3:30 PM EDT): Continue PPI Assessment & Plan (11/19/2024 12:31 PM EDT): Continue PPI Coronary artery disease Assessment & Plan (11/23/2024 3:31 PM EDT): Continue Imdur, Lopressor and statin Assessment & Plan (11/22/2024 11:29 AM EDT): Continue Imdur, Lopressor, statin Assessment & Plan (11/21/2024 1:56 PM EDT): Continue statin, Imdur, Lopressor Assessment & Plan (11/20/2024 3:30 PM EDT): Continue with home medication including statin, Imdur and Lopressor Assessment & Plan (11/19/2024 12:31 PM EDT): Continue with statin, Imdur, Lopressor Diabetes mellitus Overview (11/18/2024): IDDM Assessment & Plan (11/23/2024 3:31 PM EDT): Patient will close seems to be increasing today will place her back on Lantus 15 units twice daily Assessment & Plan (11/22/2024 11:29 AM EDT): Patient's fingersticks have been fluctuating, this a.m. her blood glucose was in the 50s At home she takes Lantus 40 twice daily, which has been discontinued Will change to Lantus 10 units daily, continue to monitor fingersticks ACHS Continue sliding scale insulin She will need to establish care with PCP and helper metal hanging for outpatient management Assessment & Plan (11/21/2024 1:56 PM EDT): Fingersticks have mainly been in the 100s Continue with Lantus 15 units twice daily, along with SSI Diabetic diet Assessment & Plan (11/20/2024 3:30 PM EDT): Continue with lower dose of Lantus 15 units twice daily Once patient's oral intake improves, will increase Lantus dose Assessment & Plan (11/19/2024 12:31 PM EDT): Patient was hypoglycemic this morning She has had minimal oral intake so far Will start IV fluids with D5 and decrease Lantus to 15 units twice daily Hyperlipidemia Overview (11/18/2024): hypertriglyceridemia Assessment & Plan (11/23/2024 3:31 PM EDT): Continue with home medications Assessment & Plan (11/22/2024 11:29 AM EDT): Continue with home medications as listed above Assessment & Plan (11/21/2024 1:56 PM EDT): Continue with home medications Assessment & Plan (11/20/2024 3:30 PM EDT): Continue with home medications Assessment & Plan (11/19/2024 12:31 PM EDT): Continue with home medications Hypertension Assessment & Plan (11/23/2024 3:31 PM EDT): Blood pressure continues to fluctuate Continue with all of her home antihypertensive medications Assessment & Plan (11/22/2024 11:29 AM EDT): Continue with all of her antihypertensive medications Assessment & Plan (11/21/2024 1:56 PM EDT): Continue with home medication Assessment & Plan (11/20/2024 3:30 PM EDT): Continue Lopressor, Norvasc, hydralazine Assessment & Plan (11/19/2024 12:31 PM EDT): Continue with Lopressor, Norvasc, hydralazine Pancreatic divisum Assessment & Plan (11/23/2024 3:31 PM EDT): See above Assessment & Plan (11/22/2024 11:29 AM EDT): See above Assessment & Plan (11/21/2024 1:56 PM EDT): See above Assessment & Plan (11/20/2024 3:30 PM EDT): Continue current treatment for acute pancreatitis Assessment & Plan (11/19/2024 12:31 PM EDT): See above Encounters Date Type Department Care Team Description 11/17/2024 7:32 PM EDT - 11/24/2024 5:43 PM EDT Hospital Encounter [facility] [address] [place] [id number] Lisseth Kumar MD Shah, Darrellr Aurea, DO Acute cystitis without hematuria (Primary Dx); Severe acute pancreatitis; Ro's esophagus with dysplasia; Type 2 diabetes mellitus without complication, with long-term current use of insulin (HCC) Discharge Disposition: Home or Self Care 11/17/2024 Travel from Last 3 Months Family History Medical History Relation Name Comments Diabetes Father Diabetes Mother Relation Name Status Comments Father Mother Social History Tobacco Use Types Packs/Day Years Used Date Smoking Tobacco: Former Cigarettes Smokeless Tobacco: Never Tobacco Cessation:Counseling Given: Not Answered Alcohol Use Standard Drinks/Week Comments Never 0 (1 standard drink = 0.6 oz pur e alcohol) [facility] Utilities Answer Date Recorded In the past 12 months has th e electric, gas, oil, or water [place] [employer] threatened to shut off services in your home? No 11/18/2024 AUDIT-C Answer Date Recorded Q1: How often do you have a drink containing alcohol? Never 11/17/2024 Q2: How many drinks containi ng alcohol do you have on a typical day when you are drinking? Patient does not drink Q3: How often do you have si x or more drinks on one occasion? Never 11/17/2024 Overall Financial Resource Strain (CARDIA) Answe r Date Recorded How hard is it for you to pa y for the very basics like food, housing, medical care, and heating? Not hard at all 11/18/2024 Hunger Vital Sign Answer Date Recorded Within the past 12 months, y ou worried that your food would run out before you got the money to buy more. Never true 11/19/19 25 Within the past 12 months, t he food you bought just didn't last and you didn't have money to get more. Never true 11/18/2024 PRAPARE - Transportation Answer Date Re corded In the past 12 months, has l ack of transportation kept you from medical appointments or from getting medications? No 11/07 In the past 12 months, has l ack of transportation kept you from meetings, work, or from getting things needed for daily living? No 11/18/2024 Housing Stability Vital Sign Answer Abe e Recorded In the last 12 months, was t here a time when you were not able to pay the mortgage or rent on time? No 11/18/2024 In the past 12 months, how m any times have you moved where you were living? 1 11/18/2024 At any time in the past 12 m [facility], were you homeless or living in a senior care (including now)? No 11/18/2024 Sex and Gender Information Value Date Recorded Sex Assigned at Female 11/18/2024 9:15 AM EDT Gender Identity Female 11/18/2024 9:15 AM EDT Sexual Orientation Heterosexual (straight) 11/18 9:15 AM EDT Last Filed Vital Signs Vital Sign Reading Time Taken Comments Blood Pressure 159/69 11/24/2024 10:00 AM EDT Pulse 72 11/24/2024 10:00 AM EDT Temperature 36.9 ??C (98.5 ??F) 11/24/2024 7:00 AM ED T Respiratory Rate 20 11/24/2024 12:00 AM EDT Oxygen Saturation 94% 11/24/2024 9:00 AM EDT Inhaled Oxygen Concentration - - Weight 101 kg (222 lb 14.2 oz) 11/24/2024 6:00 A M EDT Height 160 cm (5' 3 ) 11/21/2024 5:00 AM EDT Body Mass Index 39.48 11/21/2024 5:00 AM EDT Plan of Treatment Health Maintenance Due Date Last Done Comments Hepatitis C Virus Screening 1953 Foot Exam 1963 Hemoglobin A1C 1963 Lipid Panel 1963 Ophthalmology Exam 1963 Microalbumin/Creatinine Rati o Urine 1971 DTaP/Tdap/Td Vaccines (1 - Tdap) 1972 Pneumococcal Vaccines 50+ (1 of 2 - PCV) 1972 Mammogram 1993 Colonoscopy 1998 Zoster (Shingles) Vaccine (1 of 2) 2003 RSV Vaccine 60 years and old er and Patients (1 - Risk 60-74 years 1-dose series) 2013 DXA Bone Density (Females,Ag es 65 and older) 2018 Influenza Vaccine 04/09/2024 COVID-19 Vaccine (1 - 2023-2 5 season) 2024 Creatinine with GFR 11/23/2025 11/23/2024, 11/18/2024, 11/17/2024 Hepatitis B Vaccines Aged Out No long er eligible based on patient's age to complete this topic Procedures Procedure Name Priority Date/Time Associated Diagnosis Comments POCT GLUCOSE, FINGERSTICK (POCGLU) (NO CHARGE) Routine 11/24/2024 4:52 PM EDT POCT GLUCOSE, FINGERSTICK (POCGLU) (NO CHARGE) Routine 11/24/2024 11:42 AM EDT POCT GLUCOSE, FINGERSTICK (POCGLU) (NO CHARGE) Routine 11/24/2024 7:53 AM EDT POCT GLUCOSE, FINGERSTICK (POCGLU) (NO CHARGE) Routine 11/23/2024 8:[address] ABDOMEN+PELVIS W/O CONTRAST Routine 11/23/2024 6:27 PM EDT POCT GLUCOSE, FINGERSTICK (POCGLU) (NO CHARGE) Routine 11/23/2024 4:41 PM EDT LIPASE Routine 11/23/2024 2:23 PM EDT COMPLETE BLOOD COUNT, WITHOUT DIFFERENTIAL Routine 11/23/2024 2:23 PM EDT COMPREHENSIVE METABOLIC PANEL Routine 11/23/2024 2:23 PM EDT POCT GLUCOSE, FINGERSTICK (POCGLU) (NO CHARGE) Routine 11/23/2024 12:22 PM EDT POCT GLUCOSE, FINGERSTICK (POCGLU) (NO CHARGE) Routine 11/23/2024 8:01 AM EDT POCT GLUCOSE, FINGERSTICK (POCGLU) (NO CHARGE) Routine 11/22/2024 8:59 PM EDT POCT GLUCOSE, FINGERSTICK (POCGLU) (NO CHARGE) Routine 11/22/2024 4:05 PM EDT POCT GLUCOSE, FINGERSTICK (POCGLU) (NO CHARGE) Routine 11/22/2024 11:08 AM EDT POCT GLUCOSE, FINGERSTICK (POCGLU) (NO CHARGE) Routine 11/22/2024 8:41 AM EDT POCT GLUCOSE, FINGERSTICK (POCGLU) (NO CHARGE) Routine 11/22/2024 8:00 AM EDT TRIGLYCERIDES Routine 11/22/2024 5:00 AM EDT POCT GLUCOSE, FINGERSTICK (POCGLU) (NO CHARGE) Routine 11/21/2024 8:19 PM EDT POCT GLUCOSE, FINGERSTICK (POCGLU) (NO CHARGE) Routine 11/21/2024 4:21 PM EDT URINE MICROSCOPIC EXAM Routine 2:05 PM EDT URINALYSIS WITH REFLEX TO MICROSCOPIC Routine 11/21/2024 2:05 PM EDT URINE CULTURE Routine 11/21/2024 2:05 PM EDT POCT GLUCOSE, FINGERSTICK (POCGLU) (NO CHARGE) Routine 11/21/2024 12:50 PM EDT POCT GLUCOSE, FINGERSTICK (POCGLU) (NO CHARGE) Routine 11/21/2024 8:09 AM EDT POCT GLUCOSE, FINGERSTICK (POCGLU) (NO CHARGE) Routine 11/20/2024 9:07 PM EDT POCT GLUCOSE, FINGERSTICK (POCGLU) (NO CHARGE) Routine 11/20/2024 4:29 PM EDT POCT GLUCOSE, FINGERSTICK (POCGLU) (NO CHARGE) Routine 11/20/2024 11:50 AM EDT POCT GLUCOSE, FINGERSTICK (POCGLU) (NO CHARGE) Routine 11/20/2024 7:39 AM EDT C. DIFFICILE TOXIN AND NAP1 PCR WITH REFLEX TO C. DIFF AG/TOXIN EIA STAT 11/20/2024 1:15 AM EDT GASTROINTESTINAL EXPANDED LATONYA PANEL STAT 11/20/2024 1:15 AM EDT POCT GLUCOSE, FINGERSTICK (POCGLU) (NO CHARGE) Routine 11/19/2024 9:05 PM EDT POCT GLUCOSE, FINGERSTICK (POCGLU) (NO CHARGE) Routine 11/19/2024 4:33 PM EDT US VENOUS DUPLEX ARM-RIGHT (DVT) Routine 11/19/2024 2:17 PM EDT POCT GLUCOSE, FINGERSTICK (POCGLU) (NO CHARGE) Routine 11/19/2024 11:45 AM EDT POTASSIUM Routine 11/19/2024 9:40 AM EDT PHOSPHORUS Routine 11/19/2024 9:40 AM EDT POCT GLUCOSE, FINGERSTICK (POCGLU) (NO CHARGE) Routine 11/19/2024 8:21 AM EDT POCT GLUCOSE, FINGERSTICK (POCGLU) (NO CHARGE) Routine 11/19/2024 7:44 AM EDT TRIGLYCERIDES Routine 11/19/2024 5:14 AM EDT LIPASE Routine 11/19/2024 5:14 AM EDT POCT GLUCOSE, FINGERSTICK (POCGLU) (NO CHARGE) Routine 11/18/2024 9:19 PM EDT POCT GLUCOSE, FINGERSTICK (POCGLU) (NO CHARGE) Routine 11/18/2024 11:54 AM EDT POCT GLUCOSE, FINGERSTICK (POCGLU) (NO CHARGE) Routine 11/18/2024 11:21 AM EDT POCT GLUCOSE, FINGERSTICK (POCGLU) (NO CHARGE) Routine 11/18/2024 10:07 AM EDT POCT GLUCOSE, FINGERSTICK (POCGLU) (NO CHARGE) Routine 11/18/2024 9:02 AM EDT POCT GLUCOSE, FINGERSTICK (POCGLU) (NO CHARGE) Routine 11/18/2024 8:02 AM EDT POCT GLUCOSE, FINGERSTICK (POCGLU) (NO CHARGE) Routine 11/18/2024 7:00 AM EDT PHOSPHORUS Routine 11/18/2024 6:05 AM EDT MAGNESIUM Routine 11/18/2024 6:05 AM EDT COMPLETE BLOOD COUNT, WITHOUT DIFFERENTIAL Routine 11/18/2024 6:05 AM EDT COMPREHENSIVE METABOLIC PANEL Routine 11/18/2024 6:05 AM EDT TRIGLYCERIDES Routine 11/18/2024 6:05 AM EDT POCT GLUCOSE, FINGERSTICK (POCGLU) (NO CHARGE) Routine 11/18/2024 6:04 AM EDT POCT GLUCOSE, FINGERSTICK (POCGLU) (NO CHARGE) Routine 11/18/2024 5:08 AM EDT LACTATE DEHYDROGENASE (LDH) Routine 11/18/2024 4:10 AM EDT LIPASE Routine 11/18/2024 4:10 AM EDT POTASSIUM Routine 11/18/2024 4:10 AM EDT TRIGLYCERIDES Routine 11/18/2024 4:10 AM EDT POCT GLUCOSE, FINGERSTICK (POCGLU) (NO CHARGE) Routine 11/18/2024 4:05 AM EDT POCT GLUCOSE, FINGERSTICK (POCGLU) (NO CHARGE) Routine 11/18/2024 3:11 AM EDT POCT GLUCOSE, FINGERSTICK (POCGLU) (NO CHARGE) Routine 11/18/2024 1:59 AM EDT POCT GLUCOSE, FINGERSTICK (POCGLU) (NO CHARGE) Routine 11/18/2024 1:03 AM EDT POCT GLUCOSE, FINGERSTICK (POCGLU) (NO CHARGE) Routine 11/18/2024 12:01 AM EDT POCT GLUCOSE, FINGERSTICK (POCGLU) (NO CHARGE) Routine 11/17/2024 11:01 PM EDT POCT GLUCOSE, FINGERSTICK (POCGLU) (NO CHARGE) Routine 11/17/2024 10:08 PM EDT POCT GLUCOSE, FINGERSTICK (POCGLU) (NO CHARGE) Routine 11/17/2024 9:02 PM EDT POCT GLUCOSE, FINGERSTICK (POCGLU) (NO CHARGE) Routine 11/17/2024 8:25 PM EDT PHOSPHORUS Routine 11/17/2024 8:25 PM EDT MAGNESIUM Routine 11/17/2024 8:25 PM EDT BASIC METABOLIC PANEL Routine 11/17/2024 8:25 PM EDT COMPLETE BLOOD COUNT, WITHOUT DIFFERENTIAL Routine 11/17/2024 8:25 PM EDT TRIGLYCERIDES Routine 11/17/2024 8:25 PM EDT POCT GLUCOSE, FINGERSTICK (POCGLU) (NO CHARGE) Routine 11/17/2024 7:50 PM EDT POCT GLUCOSE, FINGERSTICK (POCGLU) (NO CHARGE) Routine 11/17/2024 7:36 PM EDT from Last 3 Months Results * (ABNORMAL) POCT Glucose, Fingerstick (11/24/2024 4:52 PM EDT) Only the most recent of45 resultswithin the time period is included. POC Glucose 203(H) 65 - 99 mg/dL 11/24/2024 4:59 PM EDT Comment:Notified RN Blood specimen / Unknown 11/24/2024 4:52 PM EDT 11/24/2024 4:59 PM EDT Cathy Koenig DO POINT OF CARE TEST [facility] See Below * CT Abdomen+pelvis w/o contrast (11/23/2024 6:27 PM EDT) Anatomical Region Laterality Modality Abdomen, Pelvis Computed Tomogra phy 11/23/2024 6:26 PM EDT Impressions 11/23/2024 6:31 PM EDT Mild peripancreatic fat stranding, compatible with a pancreatitis. No defined pancreatic fluid collection. The stomach and duodenum are in close proximity to the pancreas and secondary inflammation of these structures is not excluded. No bowel obstruction, free fluid or free air. No evidence for acute appendicitis. There are scattered calcified granulomas seen in the subcutaneous fat overlying the buttocks and flanks. There is also ill-defined stranding seen in the anterior subcutaneous fat of the abdominal wall and pelvic wall, which may be due to injection sites or localized subcutaneous fat soft tissue infection or inflammation. Narrative 11/23/2024 6:[address] ABDOMEN+PELVIS W/O CONTRAST HISTORY: Persistent abdominal pain, evaluate for worsening pancreatitis/abscess formation COMPARISON: CT 11/22/2024 TECHNIQUE: Non contrast 5 mm contiguous helical axial images were obtained through the abdomen and pelvis. Automated exposure control, adjustment of the mA and kVp and/or iterative reconstruction technique was used to reduce radiation dose. FINDINGS: Evaluation of the solid viscera and bowel are limited secondary to the lack of intravenous contrast. LUNG BASES: There is mild cardiomegaly. Lung bases are clear. There is dense calcification of the mitral annulus versus a prosthetic valve. ABDOMEN: Mild hepatomegaly. No discrete liver lesion. The gallbladder is not seen and is most likely surgically absent. Bile ducts, spleen, adrenal glands and kidneys have a normal unenhanced appearance. No renal stones or hydronephrosis. There is peripancreatic fat stranding, compatible with the known history of pancreatitis. There is no defined peripancreatic fluid collection to specifically suggest an abscess. There is close proximity between the pancreas and the stomach and duodenum. Secondary inflammation of these adjacent structures is not excluded. Assessment for pancreatic necrosis is not possible without contrast. PELVIS: Bladder has a normal unenhanced appearance. There is no bowel obstruction. No significant peribowel fat stranding. Mild stool seen throughout the colon. The appendix is normal in caliber without fat stranding. Small bowel is normal in caliber. No free fluid or free air. No inguinal hernia. There is a small fat-containing umbilical hernia. No acute fracture. There are grade 1 anterolistheses seen at L4/5 and L5/S1. [id number] degenerative change of the spine. There is mild degenerative change of the sacroiliac joints, hips and pubic symphysis. There are scattered calcified granulomas seen in the subcutaneous fat overlying the buttocks and flanks. There is also ill-defined stranding seen in the anterior subcutaneous fat of the abdominal wall and pelvic wall, which may be due to injection sites or localized subcutaneous fat soft tissue infection or inflammation. Procedure Note Fer Quintero MD - 11/23/2024 CT ABDOMEN+PELVIS W/O CONTRAST HISTORY: Persistent abdominal pain, evaluate for worseningpancreatitis/abscess formation COMPARISON: CT 11/22/2024 TECHNIQUE: Non contrast 5 mm contiguous helical axial images were obtainedthrough the abdomen and pelvis. Automated exposure control, adjustment ofthe mA and kVp and/or iterative reconstruction technique was used toreduce radiation dose. FINDINGS: Evaluation of the solid viscera and bowel are limited secondaryto the lack of intravenous contrast. LUNG BASES: There is mild cardiomegaly. Lung bases are clear. There isdense calcification of the mitral annulus versus a prosthetic valve. ABDOMEN: Mild hepatomegaly. No discrete liver lesion. The gallbladder isnot seen and is most likely surgically absent. Bile ducts, spleen, adrenalglands and kidneys have a normal unenhanced appearance. No renal stones orhydronephrosis. There is peripancreatic fat stranding, compatible with the known historyof pancreatitis. There is no defined peripancreatic fluid collection tospecifically suggest an abscess. There is close proximity between thepancreas and the stomach and duodenum. Secondary inflammation of these adjacent structures is not excluded.Assessment for pancreatic necrosis is not possible without contrast. PELVIS: Bladder has a normal unenhanced appearance. There is no bowelobstruction. No significant peribowel fat stranding. Mild stool seenthroughout the colon. The appendix is normal in caliber without fatstranding. Small bowel is normal in caliber. No free fluid or free air. No inguinal hernia. There is a smallfat-containing umbilical hernia. No acute fracture. There are grade 1 anterolistheses seen at L4/5 andL5/S1. Repu-[id number] degenerative change of the spine. There is milddegenerative change of the sacroiliac joints, hips and pubic symphysis.There are scattered calcified granulomas seen in the subcutaneous fat overlying the buttocks and flanks. There isalso ill-defined stranding seen in the anterior subcutaneous fat of theabdominal wall and pelvic wall, which may be due to injection sites orlocalized subcutaneous fat soft tissue infection or inflammation. IMPRESSION: Mild peripancreatic fat stranding, compatible with a pancreatitis. Nodefined pancreatic fluid collection. The stomach and duodenum are in closeproximity to the pancreas and secondary inflammation of these structuresis not excluded. No bowel obstruction, free fluid or free air. No evidence for acuteappendicitis. There are scattered calcified granulomas seen in the subcutaneous fatoverlying the buttocks and flanks. There is also ill-defined strandingseen in the anterior subcutaneous fat of the abdominal wall and pelvicwall, which may be due to injection sites or localized subcutaneous fat soft tissue infection or inflammation. Cathy Koenig DO IMG CT ORDERABLES * (ABNORMAL) COMPLETE BLOOD COUNT, WITHOUT DIFFERENTIAL (11/23/2024 2:23 PM EDT) Only the most recent of3 resultswithin the time period is included. White Blood Cell Count 5.3 4.0 - 11.0 Thou/uL 11/23/2024 2:45 PM EDT [facility] Platelet Count 241 150 - 450 Thou/uL 11/23/2024 2:45 PM EDT [facility] Hemoglobin 11.2(L) 11.7 - 15.7 g/dL 11/23/2024 2:45 PM EDT [facility] Hematocrit 35.1 35.0 - 47.0 % 11/23/2024 2:45 PM EDT [facility] Red Blood Cell Count 3.96(L) 4.00 - 5.40 Mil/uL 11/23/2024 2:45 PM EDT [facility] MCV 89 80 - 100 fL 11/23/2024 2:45 PM EDT [facility] MCH 28.3 27.0 - 31.0 pg 11/23/2024 2:45 PM EDT [facility] MCHC 31.9 30.0 - 36.0 g/dL 11/23/2024 2:45 PM EDT [facility] RDW 14.0 11.5 - 14.5 % 11/23/2024 2:45 PM EDT [facility] MPV 11.6 7.5 - 12.5 fL 11/23/2024 2:45 PM EDT [facility] Blood Blood specimen / Unknown 11/23/2024 2:23 PM EDT 11/23/2024 2:30 PM EDT Cathy Koenig DO LAB BLOOD ORDERABLES Performing Organization Address City/[facility]/[place] [address], * Lipase (11/23/2024 2:23 PM EDT) Only the most recent of3 resultswithin the time period is included. Lipase 60 13 - 60 U/L 11/23/2024 3:05 PM EDT [facility] Blood Blood specimen / Unknown 11/23/2024 2:23 PM EDT 11/23/2024 2:30 PM EDT Cathy Koenig DO LAB BLOOD ORDERABLES Performing Organization Address City/[facility]/[place] [address], [place] * (ABNORMAL) Comprehensive Metabolic Panel (11/23/2024 2:23 PM EDT) Only the most recent of2 resultswithin the time period is included. Glucose 266(H) 65 - 99 mg/dL 11/23/2024 3:05 PM EDT [facility] Comment:Fasting: <100 mg/dL, Non-Fasting: <200 mg/dL (ADA 2004) Blood Urea Nitrogen (BUN) 9 8 - 21 mg/dL 11/23/2024 3:05 PM EDT [facility] Creatinine 0.8 0.4 - 1.1 mg/dL 11/23/2024 3:05 PM EDT [facility] eGFR 79 >59 11/23/2024 3:05 PM EDT [facility] Comment:CKD-EPI (2020) in mL /min/1.73 sq meters. Sodium 136 136 - 145 mmol/L 11/23/2024 3:05 PM EDT [facility] Potassium 3.9 3.4 - 5.3 mmol/L 11/23/2024 3:05 PM EDT [facility] Chloride 101 98 - 107 mmol/L 11/23/2024 3:05 PM EDT [facility] CO2 26 22 - 33 mmol/L 11/23/2024 3:05 PM [facility] Calcium 9.5 8.7 - 10.5 mg/dL 11/23/2024 3:05 PM [facility] Alkaline Phosphatase 70 32 - 122 U/L 11/23/2024 3:05 PM [facility] Aspartate Aminotrans (AST) 27 10 - 50 U/L 11/23/2024 3:05 PM [facility] Alanine Aminotrans (ALT) 14 10 - 50 U/L 11/23/2024 3:05 PM [facility] Bilirubin, Total 0.4 0.2 - 1.0 mg/dL 11/23/2024 3:05 PM [facility] Protein, Total 6.6 6.3 - 8.3 g/dL 11/23[facility]2024 [facility] Albumin 3.5 3.4 - 4.8 g/dL 11/23/2024 3:05 PM [facility] BUN/Creatinine Ratio 11 10.0 - 25.0 Ratio 11/23/2024 3:05 PM [facility] Globulin 3.1 1.5 - 3.9 g/dL 11/23/2024 3:05 PM [facility] Albumin/Globulin Ratio 1.1 1.0 - 3.0 Ratio 11/23/2024 3:05 PM EDT [facility] Anion Gap 9 7 - 17 11/23/2024 3:05 PM EDT [facility] Blood Blood specimen / Unknown 11/23/2024 2:23 PM EDT 11/23/2024 2:30 PM EDT Cathy Villar [facility] LAB BLOOD ORDERABLES Performing Organization Address City/[facility]/ZIP Co de Phone Number [facility] [address] [place] [address], * (ABNORMAL) Triglycerides (11/22/2024 5:00 AM EDT) Only the most recent of5 resultswithin the time period is included. Triglycerides 241(H) <150 mg/dL 11/22/2024 5:42 AM EDT [facility] Blood Blood specimen / Unknown 11/22/2024 5:00 AM EDT 11/22/2024 5:16 AM EDT Cathy Villar [facility] LAB BLOOD ORDERABLES Performing Organization Address [facility] [place] [address], * (ABNORMAL) Urine Culture (11/21/2024 2:05 PM EDT) Culture Klebsiella pneumoniae >=100,000 col/mL (A) 11/22/2024 12:51 PM EDT [facility] Urine Urine specimen obtained by clean catch procedure / Unknown 11/21/2024 2:05 PM EDT 11/21/2024 2:16 PM EDT Comment:Urine Narrative Organism Antibiotic Method Susceptibility Klebsiella pneumoniae Amoxicillin/Clavulanat e (REPORT) BACTERIAL ARCENIO AND INTERPRETATION (MCG/ML) <=4/2: Susceptible Klebsiella pneumoniae Ampicillin (REPORT) BACTERIAL ARCENIO AND INTERPRETATION (MCG/ML) >16: Resistant Klebsiella pneumoniae Cefazolin (REPORT) BACTERIAL ARCENIO AND INTERPRETATION (MCG/ML) 4: Susceptible Klebsiella pneumoniae Ceftriaxone (REPORT) BACTERIAL ARCENIO AND INTERPRETATION (MCG/ML) <=1: Susceptible Klebsiella pneumoniae Ciprofloxacin (REPORT) BACTERIAL ARCENIO AND INTERPRETATION (MCG/ML) 0.5: Intermediate Klebsiella pneumoniae Gentamicin (REPORT) BACTERIAL ARCENIO AND INTERPRETATION (MCG/ML) <=2: Susceptible Klebsiella pneumoniae Levofloxacin (REPORT) BACTERIAL ARCENIO AND INTERPRETATION (MCG/ML) <=0.5: Susceptible Klebsiella pneumoniae Nitrofurantoin (REPORT) BACTERIAL ARCENIO AND INTERPRETATION (MCG/ML) >64: Resistant Klebsiella pneumoniae Tetracycline (REPORT) BACTERIAL ARCENIO AND INTERPRETATION (MCG/ML) 8: Intermediate Klebsiella pneumoniae Tobramycin (REPORT) BACTERIAL ARCENIO AND INTERPRETATION (MCG/ML) <=2: Susceptible Klebsiella pneumoniae Trimethoprim/Sulfameth oxazole (REPORT) BACTERIAL ARCENIO AND INTERPRETATION (MCG/ML) <=0.5/9.5: Susceptible Klebsiella pneumoniae Ampicillin/Sulbactam (REPORT) BACTERIAL ARCENIO AND INTERPRETATION (MCG/ML) 16/8: Intermediate Cathy Koenig DO MICROBIOLOGY - GENER AL ORDERABLES [facility] [address] [place] [address], * (ABNORMAL) Urinalysis with Reflex to Microscopic (11/21/2024 2:05 PM EDT) Color Yellow 11/21/2024 2:43 PM EDT [facility] Clarity Turbid 11/21/2024 2:43 PM EDT [facility] Specific [place] 1.020 1.003 - 1.030 11/21/2024 2:43 PM EDT [facility] pH 6.0 5.0 - 8.0 11/21/2024 2:43 PM EDT [facility] Leukocyte Esterase Moderate(A) Negative 11/21/2024 2:43 PM EDT [facility] Nitrite Positive(A) Negative 11/21/2024 2:43 PM EDT [facility] Protein Moderate (100 mg/dL)(A) Negative 11/21/2024 2:43 PM EDT [facility] Glucose Negative Negative mg/dL 11/21/2024 2:43 PM EDT [facility] Ketones Negative Negative 11/21/2024 2:43 PM EDT [facility] Blood Trace(A) Negative 11/21/2024 2:43 PM EDT [facility] Bilirubin Negative Negative 11/21/2024 2:43 PM EDT [facility] Urine Urine specimen obtained by clean catch procedure / Unknown 11/21/2024 2:05 PM EDT 11/21/2024 2:16 PM EDT Darrellr H Koenig DO URINE ORDERABLES Performing Organization Address City/[facility]/ZIP Co de Phone Number [facility] [address] [place] [address], [place] * (ABNORMAL) Urine Microscopic Exam (11/21/2024 2:05 PM EDT) WBC >25(H) per hpf 11/21/2024 3:06 PM EDT [facility] RBC 8(H) per hpf 11/21/2024 3:06 PM EDT [facility] Bacteria Present(A) 11/21/2024 3:06 PM EDT [facility] Squamous Epithelial Cells 12 per hpf 11/21/2024 3:06 PM EDT [facility] Hyaline Casts 4 per lpf 11/21/2024 3:06 PM EDT [facility] WBC Clumps Present(A) 11/21/2024 3:06 PM EDT [facility] Crystals Absent 11/21/2024 3:06 PM EDT [facility] Urine specimen obtained by clean catch procedure / Unknown 11/21/2024 2:05 PM EDT 11/21/2024 2:16 PM EDT Darrellr Aurea Koenig DO URINE ORDERABLES Performing Organization Address City/[facility]/ZIP Co de Phone Number [facility] [address] [place] [address], [place] * GI PCR Panel (11/20/2024 1:15 AM EDT) Campylobacter Not Detected Not Detected 11/20/2024 8:10 PM EDT [facility] Plesiomonas shigelloides Not Detected Not Detected 11/20/2024 8:10 PM [facility] Salmonella Not Detected Not Detected 11/20/2024 8:10 PM [facility] Yersinia enterocolitica Not Detected Not Detected 11/20/2024 8:10 PM [facility] Vibrio Not Detected Not Detected 11/20/2024 8:10 PM [facility] Vibrio cholerae Not Detected Not Detected 11/20/2024 8:10 PM [facility] Adenovirus F 40/41 Not Detected Not Detected 11/20/2024 8:10 PM [facility] Astrovirus Not Detected Not Detected 11/20/2024 8:10 PM [facility] Norovirus GI/GII Not Detected Not Detected 11/20/2024 8:10 PM [facility] Rotavirus A Not Detected Not Detected 11/20/2024 8:10 PM [facility] Sapovirus Not Detected Not Detected 11/20/2024 8:10 PM [facility] Cryptosporidium Not Detected Not Detected 11/20/2024 8:10 PM [facility] Cyclospora cayetanensis Not Detected Not Detected 11/20/2024 8:10 PM [facility] Entamoeba histolytica Not Detected Not Detected 11/20/2024 8:10 PM [facility] Giardia lamblia Not Detected Not Detected 11/20/2024 8:10 PM [facility] Enterotoxigenic E.coli (ETEC) Not Detected Not Detected 11/20/2024 8:10 PM [facility] Enteropathogenic E.coli (EPEC) Not Detected Not Detected 11/20/2024 8:10 PM [facility] Shiga toxin producing E.coli (STEC) stx1/stx2 Not Detected Not Detected 11/20/2024 8:10 PM [facility] Shigella/Enteroinvas channing E.coli (EIEC) Not Detected Not Detected 11/20/2024 8:10 PM [facility] Enteroaggregative E.coli (EAEC) Not Detected Not Detected 11/20/2024 8:10 PM [facility] Stool Stool specimen / Unknown 11/20/2024 1:15 AM EDT 11/20/2024 1:41 AM EDT Debbie Beatty MD MICROBIOLOGY - GEN ERAL ORDERABLES Performing Organization Address [facility] Co de Phone Number [facility] [address] [place] [address], [place] * C. difficile Toxin and NAP1 PCR with reflex to C. diff Ag/Toxin EIA (11/20/2024 1:15 AM EDT) C. difficile Toxin Gene Negative Negative 11/20/2024 5:54 PM EDT [facility] Comment:Performed by the Xpe rt C. difficile/Epi Assay NAP1 Presumptive Negative Presumptive Negative 11/20/2024 5:54 PM EDT [facility] Comment:Performed by the Xpe rt C. difficile/Epi Assay Stool specimen / Unknown 11/20/2024 1:15 AM EDT 11/20/2024 1:41 AM EDT Debbie Beatty MD MICROBIOLOGY - GEN ERAL ORDERABLES Performing Organization Address [facility] Co de Phone Number [facility] [address] [facility] [place] [address], [place] * US Venous Duplex Arm-Right (DVT) (11/19/2024 2:17 PM EDT) Anatomical Region Laterality Modality Vascular Right Ultrasound 11/19/2024 2:20 PM EDT Impressions 11/19/2024 2:20 PM EDT No evidence of deep venous thrombus right upper extremity. Narrative 11/19/2024 2:20 PM EDT STUDY: Right upper extremity venous Doppler ultrasound. INDICATION: Right upper extremity swelling COMPARISON: None TECHNIQUE: Dumas scale, color and pulsed Doppler interrogation was performed. ?? FINDINGS: The right internal jugular, subclavian, axillary, brachial, basilic and cephalic veins are patent. ??No occlusive thrombus is identified. There is normal compressibility distal to the clavicle. The venous waveforms are within normal limits. Images of the contralateral internal jugular and subclavian veins demonstrate patent vessels with normal venous waveforms. Procedure Note Sy Sampson MD - 11/19/2024 STUDY: Right upper extremity venous Doppler ultrasound. INDICATION: Right upper extremity swelling COMPARISON: None TECHNIQUE: Dumas scale, color and pulsed Doppler interrogation wasperformed. FINDINGS: The right internal jugular, subclavian, axillary, brachial, basilic andcephalic veins are patent. No occlusive thrombus is identified. There isnormal compressibility distal to the clavicle. The venous waveforms arewithin normal limits. Images of the contralateral internal jugular and subclavian veinsdemonstrate patent vessels with normal venous waveforms. IMPRESSION: No evidence of deep venous thrombus right upper extremity. Cathy Koenig DO IMG US ORDERABLES * Potassium (11/19/2024 9:40 AM EDT) Only the most recent of2 resultswithin the time period is included. Potassium 4.9 3.4 - 5.3 mmol/L 11/19/2024 10:44 AM EDT [facility] Comment:Specimen hemolyzed. Results may be artifactually elevated. Blood Blood specimen / Unknown 11/19/2024 9:40 AM EDT 11/19/2024 10:02 AM EDT Cathy Koenig DO LAB BLOOD ORDERABLES Performing Organization Address [facility]/ZIP Co de Phone Number [address] [address], * Phosphorus (Routine) (11/19/2024 9:40 AM EDT) Only the most recent of3 resultswithin the time period is included. Phosphorus 3.3 2.7 - 4.5 mg/dL 11/19/2024 10:44 AM EDT [facility] Blood Blood specimen / Unknown 11/19/2024 9:40 AM EDT 11/19/2024 10:02 AM EDT Cathy Koenig DO LAB BLOOD ORDERABLES Performing Organization Address City/[facility]/[place] [address], * Magnesium (Early AM) (11/18/2024 6:05 AM EDT) Only the most recent of2 resultswithin the time period is included. Magnesium 1.7 1.6 - 2.7 mg/dL 11/18/2024 6:33 AM EDT [facility] Blood Blood specimen / Unknown 11/18/2024 6:05 AM EDT 11/18/2024 6:11 AM EDT Sandra Knight JOSE LAB BLOOD ORDERABLES Performing Organization Address [facility]/[place] [address], * (ABNORMAL) LACTATE DEHYDROGENASE (LDH) (11/18/2024 4:10 AM EDT) Lactate Dehydrogenase (LDH) 316(H) 120 - 260 U/L 11/18/2024 1:19 PM EDT [facility] 11/18/2024 4:10 AM EDT 11/18/2024 4:19 AM EDT Sandra Knight REFINERY PROCESS ENGINEER LAB BLOOD ORDERABLES Performing Organization Address [facility]/[place] [address], * (ABNORMAL) Basic Metabolic Panel (Routine) (11/17/2024 8:25 PM EDT) Glucose 111(H) 65 - 99 mg/dL 11/17/2024 9:16 PM EDT [facility] Comment:Fasting: <100 mg/dL, Non-Fasting: <200 mg/dL (ADA 2005) Blood Urea Nitrogen (BUN) 12 8 - 21 mg/dL 11/17/2024 9:16 PM EDT [facility] Creatinine 0.6 0.4 - 1.1 mg/dL 11/17/2024 9:16 PM EDT [facility] eGFR >90 >59 11/17/2024 9:16 PM EDT [facility] Comment:CKD-EPI (2020) in mL /min/1.73 sq meters. Sodium 138 136 - 145 mmol/L 11/17/2024 9:16 PM EDT [facility] Potassium 3.3(L) 3.4 - 5.3 mmol/L 11/17/2024 9:16 PM EDT [facility] Chloride 103 98 - 107 mmol/L 11/17/2024 9:16 PM EDT [facility] CO2 22 22 - 33 mmol/L 11/17/2024 9:16 PM EDT [facility] Anion Gap 13 7 - 17 11/17/2024 9:16 PM EDT [facility] Calcium 8.9 8.7 - 10.5 mg/dL 11/17/2024 9:16 PM EDT [facility] BUN/Creatinine Ratio 20 10.0 - 25.0 Ratio 11/17/2024 9:16 PM EDT [facility] Blood Blood specimen / Unknown 11/17/2024 8:25 PM EDT 11/17/2024 8:31 PM EDT Sandra Knight APRN LAB BLOOD ORDERABLES Performing Organization Address City/State/[facility] Co de Phone Number [address] from Last 3 Months Advance Directives * Full Code (Latest Code Status on File) Date Activated Date Inactivated Comments 11/17/2024 7:48 PM Question Answer Comments Decision Thoroughly Discussed with: Patient Care Teams Charge Master Specialist Relationship Specialty Start Date End Date Pcp, No PCP - General General Medicine 11/18/24
--- OUTSIDE RECORDS SUMMARY | 2024-12-02 10:08 | XMS_ITS ---
Author Organization [facility] Address [address] [place] [phone] Care Team Providers Care Beam Warper Name Role Phone Armando Holloway MD Primary Care Provider Valeriano Dickerson [phone] REASON FOR VISIT on voicemail refill Medications Medication SIG (Take, Route, Fr equency, Duration) Notes Start Date End Date Status Lansoprazole 30 MG 1 Orally Twice a day for 90 days 08/15/2023 Active Encounters Encounter Location Date Provider Diagnosis [facility] [address] [place] [phone] 08/13/2023 Valeriano Corona Plan Of Treatment Medication Medication Name Sig Start Date Stop Date Notes Lansoprazole 30 MG 1 Orally Twice a day for 90 days 2022 Next Appt Details Provider Name:Valeriano Corona , 02/24/2025 01:40:00 PM, [address] [place] [address], [address], [address], Progress Notes * CAROLEE SOLIMANNEDOB:1955 ( 68 yo F)Acc No.[id number]:08/13/2023 Patient:?JOURDANCAROLEENE :1955???Age:68 Y???Sex:Female Address:[address] [place] [id number] * Refills? Start Lansoprazole Capsule Delayed Release, 30 MG, Orally, 180, 1, Twice a day, 90 days, Refills=3 * true * Date:? Generated for Clemencia guadalupe/Hunter/Everitting on:?12/02/2024 10:08 AM EDT
--- OUTSIDE RECORDS SUMMARY | 2024-12-02 10:09 | XMS_ITS ---
Author Organization [facility] Address [address] [place] [address] Care Team Providers Care Lace And Textiles Restorer Name Role Phone Armando Holloway MD Primary Care Provider UnavailSaira Swann Unavailable [phone] Devan Kirkpatrick Unavailable [phone] REASON FOR VISIT BUY Colig 10 Encounters Encounter Location Date Provider Diagnosis [facility] [address] [place] [address] 03/25/2024 Devan Kirkpatrick Plan Of Treatment No Information Progress Notes * Gavin SOLIMANOB:1955 ( 68 yo F)Acc No.[id number]:03/25/2024 Patient:?Clair Felecia :1955???Age:68 Y???Sex:Female Address:[place] [address] * true * Date:? Generated for Printi ng/Faramang/eTransmitting on:?12/02/2024 10:08 AM EDT
--- OUTSIDE RECORDS SUMMARY | 2024-12-02 10:09 | XMS_ITS ---
Author Organization [facility] Address [address] [place] [address] Care Team Providers Care Marking Devices Assembler Name Role Phone Armando Holloway MD Primary Care Provider Valeriano Dickerson [phone] REASON FOR VISIT no call/no show Encounters Encounter Location Date Provider Diagnosis [facility] [address] [place] [address] 10/27/2024 Valeriano Corona Plan Of Treatment Next Appt Details Provider Name:Valeriano Corona , 02/24/2025 01:40:00 PM, [address], [address], [place], [address], Progress Notes * CAROLEE SOLIMANNEDOB:1955 ( 69 yo F)Acc No.[id number]:10/27/2024 Patient:?NA SOLIMAN :1955???Age:69 Y???Sex:Female Address:[address] [facility] [place] [address] * true * Date:? Generated for Sheritai collins/Hunter/eTransmitting on:?12/02/2024 10:09 AM EDT
--- OUTSIDE RECORDS SUMMARY | 2024-12-02 10:09 | XMS_ITS | Encounter Summary ---
Author Organization [facility] Address [address] [place] [address] Care Team Providers Care Call Center Nurse Name Role Phone Unavailable Primary Care Provider Unavailabl e Encounter Details Date Type Department Care Team (Latest Contact Info) Description 11/17/2024 Travel Social History Tobacco Use Types Packs/Day Years Used Date Smoking Tobacco: Former Cigarettes Smokeless Tobacco: Never Alcohol Use Standard Drinks/Week Comments Never 0 (1 standard drink = 0.6 oz pur e alcohol) [facility] Utilities Answer Date Recorded In the past 12 months has e [employer], gas, oil, or water [employer] threatened to shut off services in your [...] any time in the past 12 m [facility], were you homeless or living in a long term (including now)? No 11/18/2024 Sex and Gender Information Value Date Recorded Sex Assigned at Female 11/18/2024 9:15 AM EDT Gender Identity Female 11/18/2024 9:15 AM EDT Sexual Orientation Heterosexual (straight) 11/18 9:15 AM EDT documented as of this encounter Plan of Treatment Not on file documented as of this encounter Visit Diagnoses Not on filedocumented in this encounter
--- OUTSIDE RECORDS SUMMARY | 2024-12-02 10:09 | XMS_ITS | Encounter Summary ---
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 Role Phone Pcp, No Primary Care Provider Unavailabl e Reason for Visit * Auth/Cert (Routine) Specialty Diagnoses / Procedures Referred By Contac t Referred To Contact Diagnoses Severe acute pancreatitis pancreatitis Procedures n/a Referral ID Status Reason Start Date Expiration Date Visits Re quested Visits Authorized [id number] 1 1 Encounter Details Date Type Department Care Team (Late st Contact Info) Description 11/17/2024 7:32 PM EDT - 11/24/2024 5:43 PM EDT Hospital Encounter [facility] [address] [place] [phone] Lisseth Kumar MD [address] [facility] [address] [place], [place] [id number] Cathy Koenig, DO [address] [place], [place] [id number] Acute cystitis without hematuria (Primary Dx); Severe acute pancreatitis; Mcdermott's esophagus with dysplasia; Type 2 diabetes mellitus without complication, with long-term current use of insulin (HCC) Discharge Disposition: Home or Self Care Social History Tobacco Use Types Packs/Day Years Used Date Smoking Tobacco: Former Cigarettes Smokeless Tobacco: Never Tobacco Cessation:Counseling Given: Not Answered Alcohol Use Standard Drinks/Week Comments Never 0 (1 standard drink = 0.6 oz pur e alcohol) [facility] Utilities Answer Date Recorded In the past 12 months has [employer] electric, gas, oil, or water company threatened to shut off services in your [...] any time in the past 12 m [facility], were you homeless or living in a fdc (including now)? No 11/18/2024 Sex and Gender Information Value Date Recorded Sex Assigned at Female 11/18/2024 9:15 AM EDT Gender Identity Female 11/18/2024 9:15 AM EDT Sexual Orientation Heterosexual (straight) 11/18 9:15 AM EDT documented as of this encounter Last Filed Vital Signs Vital Sign Reading [...] Mass Index 39.48 11/21/2024 5:00 AM EDT documented in this encounter Discharge Summaries * Cathy Koenig DO - 11/24/2024 1:23 PM EDT Inpatient Discharge Summary [facility] Brief Overview Patient Demographics Name: Felecia Soliman :1955 Admission Date: 11/17/2024 Admitting Provider: Lisseth Kumar MD Discharge Date: 11/24/24 Discharge Provider: Cathy Koenig DO Discharge Disposition: Home Or Self Care Primary Care Provider at Discharge: No Pcp Primary Discharge Diagnosis Principal Problem: Severe acute pancreatitis (POA: Yes) Active Problems: Asthma (POA: Unknown) Mcdermott's esophagus (POA: Unknown) Coronary artery disease (POA: Unknown) Diabetes mellitus (HCC) (POA: Unknown) Hyperlipidemia (POA: Unknown) Hypertension (POA: Unknown) Pancreatic divisum (POA: Not Applicable) Swelling of right upper extremity (POA: Unknown) Electrolyte abnormality (POA: Unknown) Diarrhea (POA: Unknown) UTI (urinary tract infection) (POA: Unknown) Resolved Problems: Discharge Medications Discharge Medications NEW MEDICATIONS cefUROXime 250 mg tablet; Quantity: 2 tablet; Stop taking on: November 26, 2024; Commonly known as: CEFTIN; 250 mg, Oral, 2 times daily; Start taking on: November 25, 2024 pancrelipase 38417-02227 units Cpep capsule; Quantity: 90 capsule; Commonly known as: CREON; 12,000 Units, Oral, 3 times daily with meals, Dose is in units of lipase. PANTOprazole 40 MG EC tablet; Quantity: 30 tablet; Commonly known as: PROTONIX; 40 mg, Oral, Daily; Start taking on: November 25, 2024 CHANGED MEDICATIONS Lantus SoloStar 100 UNIT/ML prefilled pen injection; Quantity: 15 mL; What changed: how much to take; Doctor's comments: [facility]: Dispense Brand of Glargine 100 units/mL Pen (Basaglar, Semglee, Lantus, Generic) cheapest for the patient. If patient has prior hx of Glargine and form is being switched, educate patient of change.; Generic drug: insulin glargine; 15 Units, Subcutaneous, 2 times daily oxyCODONE 10 mg immediate release tablet; Quantity: 42 tablet; What changed: reasons to take this; Commonly known as: ROXICODONE; 10 mg, Oral, 3 times daily PRN CONTINUED MEDICATIONS * albuterol 108 (90 Base) MCG/ACT inhaler; Commonly known as: PROVENTIL HFA; VENTOLIN HFA; 2 puffs, Inhalation, Every 4-6 hours PRN * albuterol (0.083%) 2.5 mg/3 mL nebulizer solution; Commonly known as: PROVENTIL; 2.5 mg, Nebulization, Every 6 hours PRN atorvastatin 40 MG tablet; Commonly known as: LIPITOR; 40 mg, Oral, Daily enalapril 20 MG tablet; Commonly known as: VASOTEC; 20 mg, Oral, 2 times daily fenofibrate 145 MG tablet; Commonly known as: TRICOR; 145 mg, Oral, Daily gabapentin 300 MG capsule; Commonly known as: NEURONTIN; 600 mg, Oral, Nightly hydrALAZINE 50 MG tablet; Commonly known as: APRESOLINE; 50 mg, Oral, 3 times daily metoPROLOL TARTRATE 100 MG tablet; Commonly known as: LOPRESSOR; 200 mg, Mouth/Oral Cavity, Nightly * There are duplicate medications prescribed to the patient STOPPED MEDICATIONS lansoprazole 30 MG capsule; Commonly known as: PREVACID; No future appointments. Follow Up Information No Pcp Specialty: General Medicine Active Issues Requiring Follow-up Please follow-up with your wet finisher wool due to recurrent pancreatitis Also establish care with a local primary care provider in [place] Test Results Pending at Discharge Details of Hospital Stay Presenting Problem/History of Present Illness This is a 69 y.o. female with a PMH of asthma, mcdermott's esophagus, endometrial/cervical cancer, CAD, IDDM type 2, HTN/HLD, embolism and pancreatic divisum and recurrent acute pancreatitis who presented to OSH with 2 days of progressively worsening abdominal pain. Lab work showed an elevated lipaseof 1428 with triglycerides of 952. CT of the abdomen showed peripancreatic edema pattern. Other significant lab work includes WBC 11.6, glucose 414, mg 1.5. She was started on an insulin infusion foracute pancreatitis in the setting of hypertriglyceridemia. The patient was transferred to [facility] for ICU bed availability. Her labs were checked on arrival at [facility] which showed mag 1.8, K 3.3 and phos of 2.2. She was given replacement of all three. Her initial FS was low in the 30s and she was switched from D5W to D10 with FS ranging between 115-171. TGs are trending down with the most recent 534. Hospital Course 69 y.o. female with past medical history of asthma, Mcdermott's esophagus, endometrial/cervical cancer, CAD, independent diabetes mellitus, hypertension, hyperlipidemia, chronic pancreatitis, who presented with 2 days of worsening abdominal pain, on initial presentation to outside hospital: lipase was 1428, triglyceride 952. CT abdomen pelvis showed pancreatic edema, patient was transferred from OSH to [facility] admitted to ICU for hypertriglyceridemia. While in ICU patient was on insulin drip, repeat triglyceride level was checked and overall was improving. Insulin drip was discontinued patient was switched to Lantus. Triglycerides were monitored every 8 hours.GI team was consulted for acute on chronic pancreatitis: Diet has been advanced to clear liquids With improvement in initial symptoms, patient has been stable for downgrade to medicine service. After being downgraded to medicine service patient continues to have ongoing severe epigastric painalong with loose stools, her lipase and triglyceride are trending down. GI team is following diet has been slowly being advanced patient remains on full liquid diet Since his hospitalization patient's had intermittent hypoglycemia, home Lantus dose was decreased to 15 units initially and later on to 10 units daily. With increase in oral intake Lantus dose was increased back to 15 units twice daily Due to recurrent abdominal pain, GI team was reconsulted, repeat abdominal imaging was obtained along with lipase level. Lipase level was within normal range, CT abdomen pelvis did reveal mild peripancreatic fat stranding Patient's pain was managed with oral oxycodone, was subsequent discharged home in hemodynamically stable condition. She will need to follow-up closely with GI and possibly with lipid specialist. Patient was given Creon during this admission without worsening in pancreatitis and will be discharged on Creon During this hospitalization patient also was noted to have dysuria, urine cultures are positive forKlebsiella, sensitive to cephalosporin, she was given Rocephin during this admission and was discharged on additional 1 day of Ceftin Procedures: Diagnostic Studies: Notable labs are: Lab Results Component Value Date WBC 5.3 11/23/2024 HGB 11.2 (L) 11/23/2024 HCT 35.1 11/23/2024 PLT 241 11/23/2024 Lab Results Component Value Date NA 136 11/23/2024 K 3.9 11/23/2024 CL 101 11/23/2024 CO2 26 11/23/2024 BUN 9 11/23/2024 CREAT 0.8 11/23/2024 GLUC 165 (H) 11/24/2024 GLUC 266 (H) 11/23/2024 Lab Results Component Value Date CALCIUM 9.5 11/23/2024 MG 1.7 11/18/2024 PHOS 3.3 11/19/2024 Notable imaging : CT Abdomen+pelvis w/o contrast Result Date: 11/23/2024 Imaging Impression Mild peripancreatic fat stranding, compatible with a pancreatitis. No defined pancreatic fluid collection. The stomach and duodenum are in close proximity to the pancreas and secondary inflammation of these structures is not excluded. No bowel obstruction, free fluid or free air.No evidence for acute appendicitis. There are scattered calcified granulomas seen in the subcutaneous fat overlying the buttocks and flanks. There is also ill- defined stranding seen in the anterior subcutaneous fat of the abdominal wall and pelvic wall, which may be due to injection sites or localized subcutaneous fat soft tissue infection or inflammation. Wound/Incision Pictures: Physical Exam at Discharge Discharge Condition: good Last Vitals: Pulse:72,Resp:20,BP:(!) 159/69,SpO2:94 %,Weight: 101 kg (222 lb 14.2 oz) Temp Last 24 hrs: Temp Min: 97.5 ??F (36.4 ??C) Max: 98.5 ??F (36.9 ??C) Physical Exam Constitutional - alert. Head - normocephalic and atraumatic. Eyes - extraocular movements intact. Neck - supple. Oral - moist mucous membranes. Cardiovascular - normal rate and regular rhythm. Pulmonary - breath sounds present bilaterally. no wheezing and no crackles. Abdominal - soft. tenderness +. Musculoskeletal - RLE edema present and LLE edema present. Lymphedema wear in place Skin - warm. Neurological - alert and oriented x 4. Discharge Orders No discharge procedures on file. Code Status: Code Status Procedures Full Code Order Specific Question: Decision Thoroughly Discussed with Answer: Patient Time Spent on Discharge Total time spent for discharge:32 minutes Time was spent in educating the patient, making a comprehensive discharge plan and discussion with the staff regarding the discharge plan, medication reconciliation and discharge summary Cathy Koenig DO 11/24/2024 1:23 PM documented in this encounter Discharge Instructions * Discharge Instructions* Rula Lowe, OT - 11/20/2024 12:53 PM EDT Images from the original note were not included. Discharge Instructions from physical/occupational therapist for swelling: Patient to follow up with outpatient lymphedema therapist. Order pended in discharge summary. Scheduling will call to set up appointment. Continue daily use of compression garment following below instructions To replace/reorder compression garment, discuss with out-patient lymphedema therapist or order at the following: - https://www.[employer]./uwghbg-puindyt-ugbno-footpiece: foot piece - https://www.[employer]./suunof-svssr-hvcrfzvr: lower leg piece - https://www.compressionAddonTV.Accol[employer]/sqofvzyq-fdnlf-gtmso: liner Discharge Instructions from physical/occupational therapist for swelling: Patient to follow up with outpatient lymphedema therapist. Order pended in discharge summary. Scheduling will call to set up appointment. Continue daily use of compression garment following below instructions To replace/reorder compression garment: - https://www.compressionguru.Accolade/edemawear-stockinet: half leg, thigh piece or full arm - https://www.compressionguru.com/chnwxlpiu-plkvvu-fcpkzaatclb: 1 piece full leg Lymphedema Lymphedema is swelling that happens when an abnormal amount of lymph collects in the soft tissues under your skin. Lymph is fluid that moves through your lymphatic system. This system: Is part of your body's defense system, also called your immune system. Filters germs and waste from tissues in your body to your bloodstream. Lymphedema happens when your lymphatic system is blocked. This keeps lymph from draining as it should and leads to swelling. What are the causes? The cause of lymphedema depends on which type you have. Primary lymphedema is when you're born without lymph vessels or with lymph vessels that aren't normal. Secondary lymphedema is more common. It happens when lymph vessels are blocked or damaged from: Infection. Injury. Radiation therapy. Cancer. Scar tissue that forms. Surgery. What are the signs or symptoms? A swollen arm, leg, feet, toes, or fingers. A heavy or tight feeling in the swollen area. Skin that turns red near the swollen area. Not being able to move your arm or leg. Your arm or leg is sensitive to touch. Discomfort in your arm or leg. How is this diagnosed? Lymphedema may be diagnosed based on: Your symptoms and medical history. A physical exam. Bioimpedance spectroscopy. This test uses painless electrical currents. They help measure fluid levels in your body. Imaging tests, such as: MRI or CT scan. Duplex ultrasound. This test uses sound waves to make pictures on a screen. The pictures show your blood vessels and blood flow. Lymphoscintigraphy. In this test, a low dose of radioactive substance is given through a needle that goes through your skin. The substance traces the flow of lymph through your lymph vessels. Lymphangiography. In this test, a contrast dye is put into your lymph vessel. The dye helps show ifthe vessel is blocked. How is this treated? If another condition is causing your lymphedema, that condition will be treated. For example, antibiotics may be used to treat infection. Treatment for lymphedema depends on the cause. Treatment may include: Complete decongestive therapy (CDT). This lowers fluid buildup. CDT includes: Pressure (compression) wrapping of the area. Manual lymph drainage. This helps lymph drain out of your arm or leg. Certain exercises. These help fluid move out of your arm or leg. Compression. This puts pressure on your arm or leg to lower swelling. It includes: Compression stockings or sleeves. Special bandage wraps. Surgery. This is normally done only for severe cases that don't get better with other treatments. Follow these instructions at home: Self-care Your swollen area is more likely to get hurt or infected. To help prevent infection: Keep the area clean and dry. Use creams or lotions that your health care provider says are okay. These keep your skin moist. Protect your skin from cuts. Use gloves when you cook or garden. Do not walk barefoot. If you shave the area, use an electric razor. Do not wear tight clothes, shoes, or jewelry. Eat a healthy diet. Eat a lot of fruits and vegetables. Activity Do exercises as told by your provider. Do not sit with your legs crossed. When you can, keep the swollen leg or foot raised above the level of your heart. Avoid using an arm with lymphedema to carry things. General instructions Wear compression stockings or sleeves as told by your provider. Note any changes in size of the swollen arm or leg. You may be told to measure it at set times and track the results. Take thtd-hlb-jxkaell and prescription medicines only as told by your provider. If you were prescribed antibiotics, use them as told by your provider. Do not stop using the antibiotic even if you start to feel better or if your condition improves. Do not use heating pads or ice packs on the swollen area. Avoid having your swollen arm or leg used for: Blood draws. IVs. Blood pressure checks. Contact a health care provider if: You get new swelling in your arm or leg all of a sudden. Fluid leaks from the skin of your swollen arm or leg. You have a cut that doesn't heal. The swollen area hurts or turns red. You get purple spots, a rash, blisters, or sores on your swollen arm or leg. You have a fever or chills. This information is not intended to replace advice given to you by your health care provider. Make sure you discuss any questions you have with your health care provider. Document Revised: 11/20/2023 Document Reviewed: 11/20/2023 [employer] Patient Education ?? 2023 [employer]Discharge Instructions from physical/occupational therapist for swelling: Patient to follow up with outpatient lymphedema therapist. Order pended in discharge summary. Scheduling will call to set up appointment. Continue daily use of compression garment following below instructions To replace/reorder compression garment, discuss with out-patient lymphedema therapist or order at the following: - https://www.compressionguru.com/mpziyo-wrkvquu-sqxrs-footpiece: foot piece - https://www.[employer]/obcvbp-gbpqd-yokhtjjk: lower leg piece - https://www.[employer]/jjaotsmd-szdzi-mvtjt: liner * Attachments The following attachments cannot be sent through Care Everywhere. * Acute Pancreatitis Mzcb-io-Cagm (Chadian) * Acute Pancreatitis (Chadian) documented in this encounter Medications at Time of Discharge Medication Sig Dispensed Refills Start Date End Date albuterol (PROVENTIL HFA; VENTOLIN HFA) 108 (90 Base) MCG/ACT inhaler Inhale 2 puffs Every 4 (four) to 6 (six) hours as needed. 10/07/2024 albuterol (PROVENTIL) (0.083%) 2.5 mg/3 mL nebulizer solution Take 3 mL (2.5 mg total) by nebulization 4 times daily (every 6 hours) as needed. atorvastatin (LIPITOR) 40 MG tablet Take 1 tablet (40 mg total) by mouth daily. enalapril (VASOTEC) 20 MG tablet Take 1 tablet (20 mg total) by mouth 2 times a day. fenofibrate (TRICOR) 145 MG tablet Take 1 tablet (145 mg total) by mouth daily. gabapentin (NEURONTIN) 300 MG capsule Take 2 capsules (600 mg total) by mouth nightly. hydrALAZINE (APRESOLINE) 50 MG tablet Take 1 tablet (50 mg total) by mouth 3 (three) times a day. Lantus SoloStar 100 UNIT/ML prefilled pen injectionIndications: Type 2 diabetes mellitus without complication, with long-term current use of insulin (HCC) Inject 15 Units under the skin 2 (two) times a day. 15 mL 11/24/2024 metoPROLOL TARTRATE (LOPRESSOR) 100 MG tablet 2 tablets (200 mg total) by Mouth/Oral Cavity route nightly. 11/05/2024 oxyCODONE (ROXICODONE) 10 mg immediate release tabletIndications:Sev ere acute pancreatitis Take 1 tablet (10 mg total) by mouth 3 (three) times a day as needed for severe pain. Max Daily Amount: 30 mg 42 tablet 11/24/2024 12/08/2024 pancrelipase (CREON) [address] Particles capsuleIndications:Se sidney acute pancreatitis Take 1 capsule (12,000 Units total) by mouth 3 (three) times a day with meals. Dose is in units of lipase. 90 capsule 11/24/2024 12/24/2024 PANTOprazole (PROTONIX) 40 MG EC tabletIndications:Bar rett's esophagus with dysplasia Take 1 tablet (40 mg total) by mouth daily. 30 tablet 11/25/2024 12/25/2024 cefUROXime (CEFTIN) 250 mg tabletIndications:Acu te cystitis without hematuria Take 1 tablet (250 mg total) by mouth 2 (two) times a day. Do not start before November 25, 2024. 2 tablet 11/25/2024 11/26/2024 documented as of this encounter Progress Notes * Rula Lowe, OT - 11/24/2024 1:03 PM EDT OT Edema Progress Note Assessment Summary: Pt seen for weekly edema follow-up, in which the pt reports good toleration of bl le ew/fwsince the last treatment. Rn attempted to place on edema wear and fw, educated pt and RN on how to xiomara and doff while pt supine in bed. This therapist had pt give verbal instructions on how to xiomara and doff edema wear and farrow foot and calf wraps. Pt reports decreased pain, heaviness, and tightness in the affected extremity. Recommendations made for continued use of the compression garments tofurther reduce edema, pain, and infection risk in the affected extremity. Edema Plan of Care Recommendations: - don bl le small shaped thigh high under bl foot and calf velcro wraps daily: remove at night, reapply first thing in the morning with a clean liner/sleeve after cleansing and applying lotion to thelimb - bl le elevation while at rest - bl le therex routine 3x/day Edema Treatment Frequency: 1-2x a week for LOS. Daily checks by rehabilitator Plan of Care Reviewed With: care plan/treatment goals reviewed Education: positioning, skin checks, edema management, risk reduction, and infection prevention. Education provided on donning and doffing techniques, garment wear/care, skin care to facilitate optimal decongestion. Measurements Weight: 101 kg Edema Interventions Manual Lymph Drainage: na Compression: bl le small shaped thigh high under bl foot and calf velcro wraps. Pt requires mod level of assistance with donning/ doffing compression garments. Pt verbalized good understanding of daily wear and care program. Positioning: elevation while at rest; bl l e Skin Integrity: intact to bl le Therapeutic Exercise: pt encouraged to perform muscle pump exercises as tolerated throughout the day to encourage lymphatic drainage, issued and instructed with bl le written instructions Subjective I'm from [employer] Flowsheet Data 11/24/24 3125 OT Time and Intention OT Follow-Up Visit follow up treatment Mode of Treatment individual therapy;occupational therapy (edema f/u) Patient Effort good Symptoms Noted During/After Treatment fatigue General Information Patient Profile Reviewed yes General Observations of Patient pt found resting supine in bed Existing Precautions/Restrictions fall Pain Assessment Pretreatment Pain Rating 0/10 - no pain Posttreatment Pain Rating 0/10 - no pain Edema Assessment & Management Location (Edema) lower extremity, left;lower extremity, right;ankle/foot, left;ankle/foot, right Additional Documentation Edema Symptoms/Interventions (Group);Location (Edema) (Row) Edema Symptoms/Interventions Treatment Interventions (Edema) compression garment/sleeve (ew/fw) Associated Symptoms (Edema) hair growth changes;skin color changes;skin folds deepened Description (Edema) fibrotic;pitting;localized Pitting Scale (Edema) 3-->moderate Compression Garment for Edema 11/20/24909 Placement Date/Time: 11/20/24909 Orientation: lower;right Location: thigh;calf;foot;toes Device Type: Edema Wear Thigh High;Velcro Compression Calf;Velcro Compression Foot Additional Comments: EDEMA WEAR SMALL SHAPED (LAKE LINED) FROM TOES TO M... Wearing Schedule compression device applied Device Care site cleaned Skin Condition intact Compression Garment for Edema 11/20/24909 Placement Date/Time: 11/20/24909 Orientation: left;lower Location: thigh;calf;foot;toes Device Type: Velcro Compression Calf;Velcro Compression Foot;Edema Wear Thigh High Additional Comments: EDEMAWEAR SMALL SHAPED (LAKE LINED) FROM TOES TO HI... Wearing Schedule compression device applied Device Care site cleaned Skin Condition intact Coping Trust Relationship/Rapport care explained Observed Emotional State calm;cooperative Verbalized Emotional State acceptance Safety Safety WDL WDL Safety Factors wheels locked;call light in reach;ID band on;upper side rails raised x 2;bed in low position All Alarms alarm(s) activated and audible Enhanced Safety Measures bed alarm refused Progress Summary (OT) Progress Toward Functional Goals (OT) progress toward functional goals as expected Therapy Plan Review/Discharge Plan (OT) Therapy Plan Review (OT) care plan/treatment goals reviewed OT Recommendations for Staff assist of one with donning and doffing bl le edema wear and farrow wraps Sign: Rula Lowe OT * RODNEY Ye - 11/24/2024 10:02 AM EDT Gastroenterology Progress Note Principal Problem: Severe acute pancreatitis (POA: Yes) Active Problems: Asthma (POA: Unknown) Mcdermott's esophagus (POA: Unknown) Coronary artery disease (POA: Unknown) Diabetes mellitus (HCC) (POA: Unknown) Hyperlipidemia (POA: Unknown) Hypertension (POA: Unknown) Pancreatic divisum (POA: Not Applicable) Swelling of right upper extremity (POA: Unknown) Electrolyte abnormality (POA: Unknown) Diarrhea (POA: Unknown) UTI (urinary tract infection) (POA: Unknown) Resolved Problems: 69 y.o. Assessment & Plan Assessment This is a 69-year-old female with past medical history significant for asthma, Mcdermott's esophagus,endometrial/cervical cancer, CAD, type II DM, hypertension, hyperlipidemia, history of pancreatitis2/2 high triglycerides, pancreatic divisum who presented initially to outside hospital with acute onset upper abdominal pain, found to have pancreatitis as well as significantly elevated triglycerides close to 1000 and was transferred to [facility] for ICU bed availability and insulin drip. She responded well to insulin drip, with triglycerides down to 358 yesterday, was transferred to medical floor yesterday. Abdominal pain slowly improving. Current episode consistent with recurrent acute pancreatitis 2/[address] scan report is not available however she does not have elevated LFTs to indicate gallstone pancreatitis. No alcohol use. Hospital course complicated by development of diarrhea, with negative GI PCR and C. difficile testing. Diarrhea has improved but she is still having intermittent episodes. May be secondary to pancreatic insufficiency. Plan # Recurrent acute pancreatitis 2/2 hypertriglyceridemia # Pancreatic divisum -[place] score of 2, with low (1%) predicted mortality. -Last triglycerides 241 -Continue a low-fat diet. Advised on small frequent meals she she likely has some delayed gastric emptying from surrounding inflammatory changes. -Continue fenofibrate. -Supportive care including pain and nausea management as per primary team. -May benefit from referral to lipid specialist as she has had recurrent episodes of pancreatitis secondary to hypertriglyceridemia. -Outpatient follow-up with her home wet finisher [facility] (in [place]) should be arranged. - patient is planned for discharge today which is appropriate from GI standpoint. # Diarrhea -GI PCR and C. difficile are negative -with negative infectious stool testing, can give Imodium as needed for symptomatic management of diarrhea. Additionally, would consider trial of Creon for pancreatic insufficiency. # Mcdermott's esophagus -Continue PO PPI daily. The patient case/plan will be discussed with attending physician, Dr. Kan No further inpatient GI interventions planned at this time. GI will sign off. Please recall as needed. Subjective Patient is seen and evaluated at the bedside. She states that she wishes to go home today. Her painis better controlled and less than yesterday. She is tolerating a low-fat diet. Repeat labs yesterday with lipase of 60, WBC 5.3, normal LFTs and triglycerides of 241. CT abdomen and pelvis without contrast showed mild peripancreatic fat stranding, no defined pancreatic fluid collection. The stomach and duodenum are in close proximity to the pancreas and secondary inflammation of the structures is not excluded. No fluid or free air. No further diarrhea. Objective Meds Current Facility-Administered Medications: amLODIPine (NORVASC) tablet 10 mg, 10 mg, Oral, Daily, Cathy Koenig DO, 10 mg at 11/23/24 0939 atorvastatin (LIPITOR) tablet 40 mg, 40 mg, Oral, Daily, Cathy Koenig DO, 40 mg at 11/24/24 0844 bisacodyl (DULCOLAX) suppository 10 mg, 10 mg, Rectal, Daily PRN, Cathy Koenig DO cefTRIAXone (ROCEPHIN) 1 g in sodium chloride-MBP (NS) 100 mL IVPB-MBP, 1 g, Intravenous, Q24H, Cathy Koenig DO, Stopped at 11/23/24 1618 glucose (GLUTOSE 15) 40 % oral gel 37.5 g, 1 Tube, Oral, Q15 Min PRN OR glucose (GLUTOSE 15) 40% oral gel 75 g, 2 Tube, Oral, Q15 Min PRN OR dextrose 50 % solution 12.5 g, 12.5 g, Intravenous, Q15 Min PRN OR dextrose 50 % solution 25 g, 25 g, Intravenous, Q15 Min PRN, 25 g at 11/17/24 1940 OR glucagon (GLUCAGEN) injection 1 mg, 1 mg, Intramuscular, Daily PRN, Cathy Koenig DO dextrose 50 % solution 25 g, 25 g, Intravenous, Once PRN, Cathy Koenig DO diphenhydrAMINE (BENADRYL) capsule 25 mg, 25 mg, Oral, Q8H PRN, Cathy Koenig DO, 25 mg at 929 enoxaparin (LOVENOX) syringe 40 mg, 40 mg, Subcutaneous, Q24H ALYSSA, Cathy Koenig DO, 40 mg at 11/24/24 0844 fenofibrate (TRICOR) tablet 145 mg, 145 mg, Oral, Daily, Cathy Koenig DO, 145 mg at 11/24/24 0843 hydrALAZINE (APRESOLINE) tablet 50 mg, 50 mg, Oral, TID, Cathy Koenig, , 50 mg at 11/24/24 0843 HYDROmorphone (DILAUDID) injection 0.5 mg, 0.5 mg, Intravenous, Q4H PRN, Cathy Koenig DO, 0.5 mg at 11/24/24 0442 insulin glargine (LANtus/SEMGLEE) 100 units/mL injection 15 Units, 15 Units, Subcutaneous, BID, Cathy Koenig DO, 15 Units at 11/24/24 0844 isosorbide mononitrate (IMDUR) 24 hr tablet 30 mg, 30 mg, Oral, Daily, Cathy Koenig DO, 30 mg at 11/23/24 0939 metoPROLOL TARTRATE (LOPRESSOR) tablet 100 mg, 100 mg, Oral, Q12H ALYSSA, Israr H Koenig, DO, 100 mg at 11/24/24 0844 naloxone (NARCAN) 0.4 mg/mL injection 0.4 mg, 0.4 mg, Intravenous, Q5 Min PRN, Darrellr Aurea Koenig, DO ondansetron (ZOFRAN) injection 4 mg, 4 mg, Intravenous, Q6H PRN, Darrellr Aurea Koenig, DO, 4 mg at oxyCODONE (ROXICODONE) immediate release tablet 10 mg, 10 mg, Oral, Q8H PRN, Darrellr Aurea Koenig, DO, 10 mg at 11/24/24 0846 pancrelipase (CREON) 34607-78850 units capsule 12,000 Units, 12,000 Units, Oral, TID with meals, Darrellr Aurea Koenig, DO, 12,000 Units at 11/24/24 0843 PANTOprazole (PROTONIX) EC tablet 40 mg, 40 mg, Oral, Daily, Cathy Koenig, DO, 40 mg at 11/24/24 0844 Last Vitals Pulse:72,Resp:20,BP:(!) 149/68,SpO2:94 %,Weight:101 kg (222 lb 14.2 oz) Temp Last 24 hrs: Temp Min: 97.5 ??F (36.4 ??C) Max: 98.5 ??F (36.9 ??C) Intake/Output Summary (Last 24 hours) at 11/24/2024 1003 Last data filed at 11/24/2024 0800 Gross per 24 hour Intake 515 ml Output 0 ml Net 515 ml Physical Exam General appearance: 69-year-old female, nontoxic appearing, no acute distress, awake, alert and cooperative Eyes: conjunctivae/corneas clear. No icterus ENT: Moist mucous membranes Lungs: no respiratory distress Heart: regular rate and rhythm, no murmur Abdomen: Soft, tenderness in the epigastric and right upper quadrant without rebound or guarding. BS+ Extremities: 2+ bilateral lower extremity edema Skin color, texture, turgor normal. Neurologic: Grossly normal Relevant data reviewed Results from last 7 days Lab Units 11/23/24 1423 11/18/24 0605 11/17/242024 WHITE BLOOD CELL COUNT Thou/uL 5.3 11.2* 9.9 HEMOGLOBIN g/dL 11.2* 12.6 13.0 HEMATOCRIT % 35.1 37.6 40.5 PLATELET COUNT Thou/uL 241 245 221 Results from last 7 days Lab Units 11/24/24 0753 11/23/24 1641 11/23/24 1423 GLUCOSE mg/dL -- -- 266* GLUCOSE, POC mg/dL 131* < > -- CALCIUM mg/dL -- -- 9.5 SODIUM mmol/L -- -- 136 POTASSIUM mmol/L -- -- 3.9 CO2 mmol/L -- -- 26 CHLORIDE mmol/L -- -- 101 BUN mg/dL -- -- 9 CREATININE mg/dL -- -- 0.8 < > = values in this interval not displayed. Results from last 7 days Lab Units 11/23/24 1423 LIPASE U/L 60 Results from last 7 days Lab Units 11/23/24 1423 ALT U/L 14 AST U/L 27 ALK PHOS U/L 70 BILIRUBIN TOTAL mg/dL 0.4 Computed MELD 3.0 unavailable. One or more values for this score either were not found within the given timeframe or did not fit some other criterion. Computed MELD-Na unavailable. One or more values for this score either were not found within the given timeframe or did not fit some other criterion. Imaging Studies Procedures Sign RODNEY Ye 11/24/2024 10:03 AM Associated attestation - Jazzy Kan MD - 11/24/2024 6:57 PM EDT Pancreatitis -resolved Outpatient follow up with her GI doctor * Cathy Koenig DO - 11/23/2024 3:23 PM EDT Progress Note Hospital Day: 7, Admit Date: 11/17/2024 Assessment and plan: Ms. Soliman is a 69 y.o. female with past medical history of asthma, Mcdermott's esophagus, endometrial/cervical cancer, CAD, independent diabetes mellitus, hypertension, hyperlipidemia, chronic pancreatitis, who presented with 2 days of worsening abdominal pain, on initial presentation to outside hospital: lipase was 1428, triglyceride 952. CT abdomen pelvis showed pancreatic edema, patient was transferred from [facility] to [facility] admitted to ICU for hypertriglyceridemia. While in ICU patient was on insulin drip, repeat triglyceride level was checked and overall was improving. Insulin drip was discontinued patient was switched to Lantus. Triglycerides were monitored every 8 hours.GI team was consulted for acute on chronic pancreatitis: Diet has been advanced to clear liquids With improvement in initial symptoms, patient has been stable for downgrade to medicine service. After being downgraded to medicine service patient continues to have ongoing severe epigastric painalong with loose stools, her lipase and triglyceride are trending down. GI team is following diet has been slowly being advanced patient remains on full liquid diet Since his hospitalization patient's had intermittent hypoglycemia, home Lantus dose was decreased to 15 units initially and later on to 10 units daily. Patient had been on low-fat diet but with worsening pain now, GI team reconsulted Assessment & Plan Severe acute pancreatitis Triglycerides slowly trending down, patient abdominal pain has worsened We will reconsult GI Will obtain CT abdomen and labs including lipase level UTI (urinary tract infection) Urine cultures are positive for Klebsiella sensitive to Rocephin Asthma Not in exacerbation Mcdermott's esophagus Continue PPI Coronary artery disease Continue Imdur, Lopressor and statin Diabetes mellitus (HCC) Patient will close seems to be increasing today will place her back on Lantus 15 units twice daily Hyperlipidemia Continue with home medications Hypertension Blood pressure continues to fluctuate Continue with all of her home antihypertensive medications Pancreatic divisum See above Swelling of right upper extremity Continue with compression Results negative for DVT Electrolyte abnormality Resolved Diarrhea Likely due to pancreatitis Will start Creon and monitor for worsening abdominal symptoms I have updated the Patient and addressed their questions/concerns. Barriers to patient transition/ medical necessity requiring continued inpatient stay: Quality metrics: # Telemetry: No Active Telemetry Order # Diet: Diet Additional Diets; Carb Counting 75g/meal [id number] kcal; Low Fat (50gmfat, Low Chol, Low Sat Fat) # Code status: Full Code # Nunn catheter: No Active Urethral Catheter (Nunn) Order # Central lines: # Expected Date of Discharge: 11/24/2024 VTE Time Out IMPROVE SCORE: 7 (11/18/2024 11:43 AM) Interpretation - High Risk Chemical Prophylaxis enoxaparin (LOVENOX) syringe 40 mg Subcutaneous Every 24 hours scheduled Enoxaparin Sodium 40 mg Last dose 11/23/2024 9:37 AM Mechanical Prophylaxis SCDs are ordered - Bilateral (Knee High) # Antibiotic Stewardship: Treatment Indication: d3 Current antibiotic/day of therapy: Anti-infectives (From admission, onward) Start Dose/Rate Route Frequency Ordered Stop 11/23/24 1200 cefTRIAXone (ROCEPHIN) 1 g in sodium chloride-MBP (NS) 100 mL IVPB-MBP 1 g 200 mL/hr over 30 Minutes Intravenous Every 24 hours 11/23/24 0801 Oral antibiotic transition date: Anticipated Stop date: Supportive Microbiology: Subjective: Chief complaint No chief complaint on file. Patient is being seen for acute medical problems and follow-up for chronic medical issues as mentioned in the assessment and plan above. # Event overnight: No acute events reported Ms. Soliman was seen earlier today. she reports worsening abdominal pain today, postprandial pain, denies nausea or emesis, denies fevers or chills Objective: Last Filed Values 11/23/24 1224 BP: Pulse: Resp: (!) 2 Temp: TempSrc: SpO2: SpO2 Min: 96 % Max: 98 % O2 Device: room air (none) Weight: on admission: 102 kg (224 lb 13.9 oz), (11/17/2024 7:00 PM) Recent: 100 kg (221 lb 1.9 oz),(11/23/2024 6:00 AM) Last Documented Bowel Movement - 11/20/24 (11/22/24 0800) Intake/Output Summary (Last 24 hours) at 11/23/2024 1524 Last data filed at 11/23/2024 1400 Gross per 24 hour Intake 650 ml Output 0 ml Net 650 ml Physical Exam Constitutional - alert. ill appearing. Head - normocephalic and atraumatic. Eyes - extraocular movements intact. Nose - appears normal. Oral - moist mucous membranes. Cardiovascular - normal rate and regular rhythm. normal heart sounds. Pulmonary - breath sounds present bilaterally. no wheezing and no crackles. Abdominal - soft and bowel sounds normal. tenderness +. Musculoskeletal - RLE edema present and LLE edema present. no joint tenderness. Skin - warm. Neurological - alert and oriented x 4. Scheduled medications 11/23/24 3:24 PM As needed medications: amLODIPine, 10 mg, Oral, Daily atorvastatin, 40 mg, Oral, Daily cefTRIAXone, 1 g, Intravenous, Q24H enoxaparin (LOVENOX) injection for prophylaxis, 40 mg, Subcutaneous, Q24H ALYSSA fenofibrate, 145 mg, Oral, Daily hydrALAZINE, 50 mg, Oral, TID insulin glargine, 15 Units, Subcutaneous, BID isosorbide mononitrate, 30 mg, Oral, Daily metoPROLOL TARTRATE, 100 mg, Oral, Q12H ALYSSA pancrelipase, 12,000 Units, Oral, TID with meals PANTOprazole, 40 mg, Oral, Daily bisacodyl glucose OR glucose OR dextrose OR dextrose OR glucagon dextrose diphenhydrAMINE HYDROmorphone naloxone ondansetron oxyCODONE Current infusions: Diagnostic studies: I have reviewed the labs and ordered new labs if needed. Recent Labs 11/23/24 1423 WBC 5.3 HGB 11.2* HCT 35.1 PLT 241 Recent Labs 11/23/24 1423 NA 136 K 3.9 CO2 26 CL 101 BUN 9 CREAT 0.8 CALCIUM 9.5 BILITOT 0.4 ALKPHOS 70 AST 27 ALT 14 ALBUMIN 3.5 No results for input(s): PT , PTT , INR in the last 72 hours. No results for input(s): SARSCOV2 , INFLAV , INFLBV in the last 72 hours. Blood Culture Results Since Admission No results found for this visit on 11/17/24. Urine Culture Results Since Admission No results found for this visit on 11/17/24. Cathy Koenig DO * RODNEY Ye - 11/23/2024 2:21 PM EDT Gastroenterology Progress Note Principal Problem: Severe acute pancreatitis (POA: Yes) Active Problems: Asthma (POA: Unknown) Mcdermott's esophagus (POA: Unknown) Coronary artery disease (POA: Unknown) Diabetes mellitus (HCC) (POA: Unknown) Hyperlipidemia (POA: Unknown) Hypertension (POA: Unknown) Pancreatic divisum (POA: Not Applicable) Swelling of right upper extremity (POA: Unknown) Electrolyte abnormality (POA: Unknown) Diarrhea (POA: Unknown) UTI (urinary tract infection) (POA: Unknown) Resolved Problems: 69 y.o. Assessment & Plan Assessment This is a 69-year-old female with past medical history significant for asthma, Mcdermott's esophagus,endometrial/cervical cancer, CAD, type II DM, hypertension, hyperlipidemia, history of pancreatitis2/2 high triglycerides, pancreatic divisum who presented initially to outside hospital with acute onset upper abdominal pain, found to have pancreatitis as well as significantly elevated triglycerides close to 1000 and was transferred to [facility] for ICU bed availability and insulin drip. She responded well to insulin drip, with triglycerides down to 358 yesterday, was transferred to medical floor yesterday. Abdominal pain slowly improving. Current episode consistent with recurrent acute pancreatitis 2/[address] scan report is not available however she does not have elevated LFTs to indicate gallstone pancreatitis. No alcohol use. Hospital course complicated by development of diarrhea, with negative GI PCR and C. difficile testing. Diarrhea has improved but she is still having intermittent episodes. May be secondary to pancreatic insufficiency. GI asked to reevaluate the patient today due to worsening epigastric abdominal pain. Plan # Recurrent acute pancreatitis 2/2 hypertriglyceridemia # Pancreatic divisum -[place] score of 2, with low (1%) predicted mortality. -Last triglycerides 348 on 11/22/2024 -Continue a low-fat diet. Advised patient to decrease her intake. Can also pull back to a full liquid diet if pain persists. -Continue fenofibrate. -Supportive care including pain and nausea management as per primary team. -With acute worsening of epigastric abdominal pain can repeat CT scan imaging. Unfortunately the patient is allergic to contrast dye and therefore would need to be a noncontrast study which is not ideal for evaluation of pancreatitis. -May benefit from referral to lipid specialist as she has had recurrent episodes of pancreatitis secondary to hypertriglyceridemia. -Outpatient follow-up with her home wet [employer] (in [place]) should be arranged. # Diarrhea -GI PCR and C. difficile are negative -with negative infectious stool testing, can give Imodium as needed for symptomatic management of diarrhea. Additionally, would consider trial of Creon for pancreatic insufficiency. # Mcdermott's esophagus -Continue PO PPI daily. The patient case/plan will be discussed with attending physician, Dr. Martínez. Subjective GI was asked to reevaluate the patient. She had had significantly improved symptoms and was plannedfor discharge home today however last night she had an increase in her upper abdominal pain after eating. Pain and mild nausea persists today. She had been titrated off IV pain medication but has required IV Dilaudid since last night. No fevers. No recent lab evaluation. Objective Meds Current Facility-Administered Medications: amLODIPine (NORVASC) tablet 10 mg, 10 mg, Oral, Daily, Cathy Koenig, DO, 10 mg at 11/23/24938 atorvastatin (LIPITOR) tablet 40 mg, 40 mg, Oral, Daily, Cathy Koenig, DO, 40 mg at 11/23/2439 bisacodyl (DULCOLAX) suppository 10 mg, 10 mg, Rectal, Daily PRN, Cathy Koenig DO cefTRIAXone (ROCEPHIN) 1 g in sodium chloride-MBP (NS) 100 mL IVPB-MBP, 1 g, Intravenous, Q24H, Cathy Koenig DO glucose (GLUTOSE 15) 40 % oral gel 37.5 g, 1 Tube, Oral, Q15 Min PRN OR glucose (GLUTOSE 15) 40% oral gel 75 g, 2 Tube, Oral, Q15 Min PRN OR dextrose 50 % solution 12.5 g, 12.5 g, Intravenous, Q15 Min PRN OR dextrose 50 % solution 25 g, 25 g, Intravenous, Q15 Min PRN, 25 g at 11/17/241939 OR glucagon (GLUCAGEN) injection 1 mg, 1 mg, Intramuscular, Daily PRN, Cathy Koenig DO dextrose 50 % solution 25 g, 25 g, Intravenous, Once PRN, Cathy Koenig DO diphenhydrAMINE (BENADRYL) capsule 25 mg, 25 mg, Oral, Q8H PRN, Cathy Koenig, DO, 25 mg at enoxaparin (LOVENOX) syringe 40 mg, 40 mg, Subcutaneous, Q24H ALYSSA, Cathy Koenig, DO, 40 mg at 11/23/24936 fenofibrate (TRICOR) tablet 145 mg, 145 mg, Oral, Daily, Cathy Koenig, DO, 145 mg at 11/23/24938 hydrALAZINE (APRESOLINE) tablet 50 mg, 50 mg, Oral, TID, Israr H Koenig, DO, 50 mg at 11/23/24 0930 HYDROmorphone (DILAUDID) injection 0.5 mg, 0.5 mg, Intravenous, Q4H PRN, Cathy Koenig, DO, 0.5 mg at 11/23/24 1410 insulin glargine (LANtus/SEMGLEE) 100 units/mL injection 15 Units, 15 Units, Subcutaneous, Daily, Cathy Koenig, DO, 15 Units at 11/23/24 0934 isosorbide mononitrate (IMDUR) 24 hr tablet 30 mg, 30 mg, Oral, Daily, Cathy Koenig, DO, 30 mg at 11/23/24 0939 metoPROLOL TARTRATE (LOPRESSOR) tablet 100 mg, 100 mg, Oral, Q12H ALYSSA, Cathy Koenig, DO, 100 mg at 11/23/24 09 naloxone (NARCAN) 0.4 mg/mL injection 0.4 mg, 0.4 mg, Intravenous, Q5 Min PRN, Cathy Koenig, DO ondansetron (ZOFRAN) injection 4 mg, 4 mg, Intravenous, Q6H PRN, Cathy Koenig, DO, 4 mg at oxyCODONE (ROXICODONE) immediate release tablet 10 mg, 10 mg, Oral, Q8H PRN, Cathy Koenig, DO, 10 mg at 11/23/24 0936 pancrelipase (CREON) 11727-06723 units capsule 12,000 Units, 12,000 Units, Oral, TID with meals, Cathy Koenig, DO PANTOprazole (PROTONIX) EC tablet 40 mg, 40 mg, Oral, Daily, Cathy Koenig, DO, 40 mg at 11/23/24 0939 Last Vitals Pulse:78,Resp:(!) 2,BP:(!) 172/74,SpO2:96 %,Weight:100 kg (221 lb 1.9 oz) Temp Last 24 hrs: Temp Min: 97.5 ??F (36.4 ??C) Max: 98.3 ??F (36.8 ??C) Intake/Output Summary (Last 24 hours) at 11/23/2024 1422 Last data filed at 11/23/2024 1000 Gross per 24 hour Intake 440 ml Output 0 ml Net 440 ml Physical Exam General appearance: 69-year-old female, nontoxic appearing, no acute distress, awake, alert and cooperative Eyes: conjunctivae/corneas clear. No icterus ENT: Moist mucous membranes Lungs: no respiratory distress Heart: regular rate and rhythm, no murmur Abdomen: Soft, tenderness in the epigastric and right upper quadrant without rebound or guarding. BS+ Extremities: 2+ bilateral lower extremity edema skin: Skin color, texture, turgor normal. Neurologic: Grossly zachary Relevant data reviewed Results from last 7 days Lab Units 11/18/24 0611/17/242024 WHITE BLOOD CELL COUNT Thou/uL 11.2* 9.9 HEMOGLOBIN g/dL 12.6 13.0 HEMATOCRIT % 37.6 40.5 PLATELET COUNT Thou/uL 245 221 Results from last 7 days Lab Units 11/23/24 1222 11/19/24 1145 11/19/24 0940 11/18/24 0700 11/18/24 0605 GLUCOSE mg/dL -- -- -- -- 165* GLUCOSE, POC mg/dL 233* < > -- < > -- CALCIUM mg/dL -- -- -- -- 8.6* SODIUM mmol/L -- -- -- -- 133* POTASSIUM mmol/L -- -- 4.9 -- 3.3* CO2 mmol/L -- -- -- -- 24 CHLORIDE mmol/L -- -- -- -- 101 BUN mg/dL -- -- -- -- 7* CREATININE mg/dL -- -- -- -- 0.6 < > = values in this interval not displayed. Results from last 7 days Lab Units 11/19/24 0514 LIPASE U/L 137* Results from last 7 days Lab Units 11/18/24 0605 ALT U/L 13 AST U/L 22 ALK PHOS U/L 78 BILIRUBIN TOTAL mg/dL 0.4 Computed MELD 3.0 unavailable. One or more values for this score either were not found within the given timeframe or did not fit some other criterion. Computed MELD-Na unavailable. One or more values for this score either were not found within the given timeframe or did not fit some other criterion. Imaging Studies Procedures Sign RODNEY Ye 11/23/2024 2:22 PM Associated attestation - Nirmal Martínez MD - 11/23/2024 3:25 PM EDT I saw and examined Felecia Soliman, obtained history, reviewed all available investigations, and discussed and developed the assessment and plan with Ms. RODNEY March * Rula Lowe, OT - 11/23/2024 11:05 AM EDT OT Edema Progress Note Assessment Summary: Pt seen for weekly edema follow-up, in which the pt reports good toleration of edema wear since the last treatment. Pt on Monday 11/20 had fw placed but had an accident and were taken off andcleaned and left in bathroom, pt room changed later that night and fw did go with pt, so over weekend the pt has only been wearing edema wear ( on and off per pt), this therapist found farrow wraps and reapplied. Girth measurements demonstrate a reduction of none in the limb. Pt reports decreased pain, heaviness, and tightness in the affected extremity. Recommendations made for continued use of the compression garments to further reduce edema, pain, and infection risk in the affected extremity. Edema Plan of Care Recommendations: - don bl le small shaped edema wear thigh high under calf and foot velcro wraps daily: remove at night, reapply first thing in the morning with a clean liner/sleeve after cleansing and applying lotion to the limb - bl le elevation while at rest - bl le therex routine 3x/day Edema Treatment Frequency: 1-2x a week for LOS. Daily checks by rehabilitator Plan of Care Reviewed With: care plan/treatment goals reviewed Education: positioning, skin checks, edema management, risk reduction, and infection prevention. Education provided on donning and doffing techniques, garment wear/care, skin care to facilitate optimal decongestion. Measurements Measurements from 11/20/24: Right Left Foot 26.0cm 26.5cm Ankle 29.5cm 30.5cm Calf 41.0cm 43.5cm Popliteal Fossa 44.7cm 43.0cm Mid Thigh 54.0cm 54.0cm Weight: 102 kg Measurements from 11/23/24: Green indicates values with reduction Right Left Foot 27.0cm 28.0cm Ankle 32.0cm 33.0cm Calf 42.5cm 45.0cm Popliteal Fossa 43.0cm 46.0cm Mid Thigh 56.0cm 56.0cm Weight: 100kgs Edema Interventions Manual Lymph Drainage: na Compression: bl le small shaped edema wear thigh high under calf and foot velcro wraps. Pt requiresmod level of assistance with donning/ doffing compression garments. Pt verbalized good understanding of daily wear and care program. Positioning: elevation while at rest; bl le Skin Integrity: intact bl le Therapeutic Exercise: pt encouraged to perform muscle pump exercises as tolerated throughout the day to encourage lymphatic drainage to bl le, issued written instructions Subjective I'm from [employer] 11/23/24 1105 OT Time and Intention OT Follow-Up Visit follow up treatment Mode of Treatment individual therapy;occupational therapy (edema) Patient Effort good Symptoms Noted During/After Treatment fatigue General Information Patient Profile Reviewed yes General Observations of Patient pt found resting seated in bed side chair Existing Precautions/Restrictions fall Pain Assessment Pretreatment Pain Rating 0/10 - no pain Posttreatment Pain Rating 4/10 Pain Location - Side/Orientation Bilateral Pain Location - foot Edema Assessment & Management Location (Edema) lower extremity, left;lower extremity, right;ankle/foot, left;ankle/foot, right Additional Documentation Edema Symptoms/Interventions (Group);Location (Edema) (Row) Edema Symptoms/Interventions Treatment Interventions (Edema) (ew/fw) Associated Symptoms (Edema) hair growth changes;pain;skin color changes;skin folds deepened Description (Edema) fibrotic;localized;pitting Pitting Scale (Edema) 3-->moderate Compression Garment for Edema 11/20/24909 Placement Date/Time: 11/20/24909 Orientation: lower;right Location: thigh;calf;foot;toes Device Type: Edema Wear Thigh High;Velcro Compression Calf;Velcro Compression Foot Additional Comments: EDEMA WEAR SMALL SHAPED (LAKE LINED) FROM TOES TO M... Wearing Schedule compression device applied Device Care site cleaned Skin Condition intact Compression Garment for Edema 11/20/24909 Placement Date/Time: 11/20/24909 Orientation: left;lower Location: thigh;calf;foot;toes Device Type: Velcro Compression Calf;Velcro Compression Foot;Edema Wear Thigh High Additional Comments: EDEMAWEAR SMALL SHAPED (LAKE LINED) FROM TOES TO HI... Wearing Schedule compression device applied Device Care site cleaned Skin Condition intact Coping Trust Relationship/Rapport care explained Observed Emotional State calm;cooperative Verbalized Emotional State acceptance Safety Safety WDL WDL Safety Factors wheels locked;upper side rails raised x 2;call light in reach;ID band on;bed in low position Enhanced Safety Measures bed alarm refused Progress Summary (OT) Progress Toward Functional Goals (OT) progress toward functional goals is good Therapy Plan Review/Discharge Plan (OT) Therapy Plan Review (OT) care plan/treatment goals reviewed OT Recommendations for Staff assist of one with donning and doffing bl keny edmea wear Sign: Rula Lowe OT * Saira Jimenez, PT - 11/23/2024 10:46 AM EDT Physical Therapy Progress Note Assessment Summary: Pt seen for follow up PT tx. Pt alert, agreeable and willing to participate in PT session.Spoke to RN prior to PT session, no contraindications noted. Pt c/o abdominal pain at the start of the session. Pt t/f STS from chair to RW w/ supervision. Pt ambulated 50ft x 2 w/ RW and SBA, c/o dizziness, req seated rest break, BP taken, 211/77, RN notified. Negotiated 3 stairs w/ RHR support and CGA. Non reciprocal gait. Pt limited by pain, fatigue today. Pt will benefit from skilled PT to improve strength, balance and functional mobility during hospitalization in order to prevent deconditioning. Prior Level of Function: At baseline, patient lives with in a 2 level house, 2-3 [place], patient can stay on one level at home. has a cane that she uses occassionally. [facility] Current Level of Function and Impairments: Patient currently presents with dizziness, abdominal pain. Safety Measures: Patient was left in bed, call smith in reach, needs addressed, alarm set, and nursing notified. Outcome Measures: Activity Measure for Post-Acute Care (AMPAC) is a standardized assessment used to identify functional impairments in mobility and self-care. A higher score indicates higher level of independence for tasks. Baseline AMPA Basic Mobility Score: 23 Current [facility] Basic Mobility Score: 19 ([facility] Mobility Raw Score of 14-19 indicates 40-60% impairment with mobility) Current [facility] Daily Activity Score: 20 Progress Towards Goals: progress toward functional goals is good Rehab Plan of Care Patient would benefit from ongoing physical therapy services at home to address acute impairments following hospital stay. Patient is currently below prior level of function and has potential to achieve goal of maximizing functional independence with continuation of skilled physical therapy intervention. If transitioning to home, patient will require walker, rolling and home PT/OT 1.) PT Recommendations for Staff: SBA w/ RW 2.) PT Frequency: 3-5 times/wk during hospitalization 3.) Plan of Care Reviewed With: patient 4.) Transition Care Planning: Patient's current level of function and post-acute rehab needs discussed with patient, IDT. Objective Data Transfers Assessment/Intervention: STS from chair to RW w/ supervision. Steady upon standing Gait/Stair Assessment/Intervention: ambulated 50ft x 2 w/ RW and supervision. Required seated rest break after 50ft of ambulation d/t feeling dizzy/ woozy per patient report. BP 211/77 while seatedafter ambulation. Denied any sx after seated rest break. Negotiated 3 stairs with RHR support and CGA. Non reciprocal gait, educated on up with strong/down with weak. Pt with 100% carryover of stair negotiation technique. Neuromuscular Re-Education Assessment/Intervention: good for static/dynamic seated and standing balance Activity Tolerance/Endurance Assessment/Intervention: good for treatment session on RA Vitals: BP 211/77 after 50ft of ambulation. RN notified. Education: PT POC, benefits of mobility, safety and RW management. Subjective Sure here's the walker Flowsheet Data 11/23/24 1046 Physical Therapy Time and Intention PT Follow-Up Visit follow up treatment Mode of Treatment individual therapy;physical therapy Patient Effort good Symptoms Noted During/After Treatment dizziness General Information Patient Profile Reviewed yes Patient/Family/Caregiver Comments/Observations Sure here's the walker General Observations of Patient Pt found seated in chair, staff present Existing Precautions/Restrictions fall Pain Additional Documentation Pain Scale: Word Pre/Post-Treatment (Group) Pain Scale: Word Pre/Post-Treatment Pain: Word Scale, Pretreatment 0 - no pain Pain: Word Scale, During-Treatment 2 - mild pain Posttreatment Pain Rating 4 - moderate pain Pre/Posttreatment Pain Comment abdominal pain Safety Safety WDL WDL Progressive Mobility Progressive Mobility Level Achieved Ambulation Ambulation Distance (Feet) 100 [facility] Basic Mobility Turning from your back to your side while in a flat bed without using bedrails? 4 Moving from lying on your back to sitting on the side of a flat bed without using bedrails? 3 Moving to and from a bed to a chair (including wheelchair)? 3 Standing up from a chair using your arms? 3 To walk in a hospital room? 3 Climbing 3-5 steps with a railing? 3 [facility] Basic Mobility Score 19 Therapy Assessment/Plan (PT) PT Recommendations for Staff SBA w/ RW Progress Summary (PT) Progress Toward Functional Goals (PT) progress toward functional goals is good Barriers to Overall Progress (PT) dizziness, abdominal pain Therapy Plan Review/Discharge Plan (PT) Therapy Plan Review (PT) evaluation/treatment results reviewed;care plan/treatment goals reviewed;risks/benefits reviewed;current/potential barriers reviewed;participants voiced agreement with care plan;participants included;patient Sign: Saira Jimenez PT, DPT * Cathy Koenig DO - 11/22/2024 11:24 AM EDT Progress Note Hospital Day: 6, Admit Date: 11/17/2024 Assessment and plan: Ms. Soliman is a 69 y.o. female with past medical history of asthma, Mcdermott's esophagus, endometrial/cervical cancer, CAD, independent diabetes mellitus, hypertension, hyperlipidemia, chronic pancreatitis, who presented with 2 days of worsening abdominal pain, on initial presentation to outside hospital: lipase was 1428, triglyceride 952. CT abdomen pelvis showed pancreatic edema, patient was transferred from OSH to [facility] admitted to ICU for hypertriglyceridemia. While in ICU patient was on insulin drip, repeat triglyceride level was checked and overall was improving. Insulin drip was discontinued patient was switched to Lantus. Triglycerides were monitored every 8 hours.GI team was consulted for acute on chronic pancreatitis: Diet has been advanced to clear liquids With improvement in initial symptoms, patient has been stable for downgrade to medicine service. After being downgraded to medicine service patient continues to have ongoing severe epigastric painalong with loose stools, her lipase and triglyceride are trending down. GI team is following diet has been slowly being advanced patient remains on full liquid diet Since his hospitalization patient's had intermittent hypoglycemia, home Lantus dose was decreased to 15 units initially and later on to 10 units daily. Patient has been on low-fat diet, her oral intake has been improving Assessment & Plan Severe acute pancreatitis Slowly improving, triglyceride level continues to trend down GI team has been initially following and recommended outpatient follow-up with GI and likely referral for lipid specialist from her GI Continue statin, fenofibrate Pain meds as needed, low-fat diet UTI (urinary tract infection) Patient been having dysuria and suprapubic pain Urinalysis consistent with UTI Urine cultures are pending Will continue Rocephin Asthma Not in exacerbation Mcdermott's esophagus Continue PPI Coronary artery disease Continue Imdur, Lopressor, statin Diabetes mellitus (HCC) Patient's fingersticks have been fluctuating, this a.m. 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 for outpatient management Hyperlipidemia Continue with home medications as listed above Hypertension Continue with all of her antihypertensive medications Pancreatic divisum See above Swelling of right upper extremity Swelling is slowly improving Ultrasound was negative for DVT Electrolyte abnormality Resolved Diarrhea C. difficile/GI PCR negative Will DC precautions I have updated the Patient and addressed their questions/concerns. Patient declined third-democrat updates Barriers to patient transition/ medical necessity requiring continued inpatient stay acute pancreatitis, minimally improving Quality metrics: # Telemetry: No Active Telemetry Order # Diet: Diet Additional Diets; Carb Counting 75g/meal 5096-6961 kcal; Low Fat (50gmfat, Low Chol, Low Sat Fat) # Code status: Full Code # Nunn catheter: No Active Urethral Catheter (Nunn) Order # Central lines: # Expected Date of Discharge: 11/23/2024 VTE Time Out IMPROVE SCORE: 7 (11/18/2024 11:43 AM) Interpretation - High Risk Chemical Prophylaxis enoxaparin (LOVENOX) syringe 40 mg Subcutaneous Every 24 hours scheduled Enoxaparin Sodium 40 mg Last dose 11/22/2024 8:00 AM Mechanical Prophylaxis SCDs are ordered - Bilateral (Knee High) Patient declined SCD use, Please review Subjective: Chief complaint No chief complaint on file. Patient is being seen for acute medical problems and follow-up for chronic medical issues as mentioned in the assessment and plan above. # Event overnight: No acute events reported Ms. Soliman was seen earlier today. she still endorses postprandial pain but overall her symptoms areimproving She also reports dysuria with lower abdominal pain. She denies fevers chills. Has lower extremity swelling. And occasional right orbital swelling but currently has improved Objective: Last Filed Values 11/22/24 08 BP: (!) 174/75 Pulse: 89 Resp: 16 Temp: 98.2 ??F (36.8 ??C) TempSrc: Tympanic SpO2: 96% SpO2 Min: 93 % Max: 99 % O2 Device: room air (none) Weight: on admission: 102 kg (224 lb 13.9 oz), (11/17/2024 7:00 PM) Recent: 103 kg (226 lb 6.6 oz),(11/22/2024 5:41 AM) Last Documented Bowel Movement - 11/20/24 (11/22/24 0800) Intake/Output Summary (Last 24 hours) at 11/22/2024 1124 Last data filed at 11/22/2024 0800 Gross per 24 hour Intake 285 ml Output 0 ml Net 285 ml General: Patient is sitting at the side of the bed, chronically ill-appearing HEENT: Normocephalic, atraumatic, EOM intact without any pain with eye movement, Mucous membranes moist, no Periorbital swelling Heart: S1, S2, RRR Lungs: Clear to auscultation, no added sounds Abdomen: soft, Bowel sounds normal, minimal epigastric tenderness, suprapubic tenderness Extremities: No deformities, cyanosis. Bilateral lower extremity edema, lymphedema wear in place Skin: warm Neurological: At baseline Above exam was performed Scheduled medications 11/22/24 11:24 AM As needed medications: amLODIPine, 10 mg, Oral, Daily atorvastatin, 40 mg, Oral, Daily cefTRIAXone, 1 g, Intravenous, Q24H enoxaparin (LOVENOX) injection for prophylaxis, 40 mg, Subcutaneous, Q24H ALYSSA fenofibrate, 145 mg, Oral, Daily hydrALAZINE, 50 mg, Oral, TID insulin glargine, 10 Units, Subcutaneous, Daily [Provider Held] insulin glargine, 15 Units, Subcutaneous, BID isosorbide mononitrate, 30 mg, Oral, Daily metoPROLOL TARTRATE, 100 mg, Oral, Q12H ALYSSA PANTOprazole, 40 mg, Oral, Daily bisacodyl glucose OR glucose OR dextrose OR dextrose OR glucagon dextrose diphenhydrAMINE HYDROmorphone naloxone ondansetron oxyCODONE Current infusions: Diagnostic studies: I have reviewed the labs and ordered new labs if needed. No results for input(s): WBC , HGB , HCT , PLT in the last 72 hours. No results for input(s): NA , K , CO2 , CL , BUN , CREAT , CALCIUM , MG , PHOS , BILITOT , ALKPHOS , AST , ALT , ALBUMIN in the last 72 hours. No results for input(s): PT , PTT , INR in the last 72 hours. No results for input(s): SARSCOV2 , INFLAV , INFLBV in the last 72 hours. Blood Culture Results Since Admission No results found for this visit on 11/17/24. Urine Culture Results Since Admission No results found for this visit on 11/17/24. Cathy Koenig DO * Angie Bravo OT - 11/22/2024 9:57 AM EDT OT Edema Treatment Assessment Summary: Pt seen for 24 hour follow-up after compression application on 11/22/24. Pt reported B LE tolerance of compression, re-educated pt on daily wear. Skin check completed with no signs of breakdown. Pt reported decreased comfort with farrow wraps day prior. Continue to recommend daily use of small shaped edema wear foot to thigh. Will follow-up 1x/week for monitoring of compression garments including pending progress and compression modifications. Edema Plan of Care Recommendations: - don small shaped (lake line) edema wear toes to thigh daily: remove at night, reapply first thingin the morning with a clean liner/sleeve after cleansing and applying lotion to the limb - B LE elevation while at rest - B LE therex routine 3x/day Edema Treatment Frequency: 24 hr follow up by CLT, followed by progress checks 1-2x a week for LOS.Daily checks by rehabilitator will be initiated. Plan of Care Reviewed With: care plan/treatment goals reviewed Education: positioning, skin checks, edema management, risk reduction, and infection prevention. Education provided on donning and doffing techniques, garment wear/care, skin care to facilitate optimal decongestion. Measurements Weight: 103kgs Edema Interventions Manual Lymph Drainage: NA Compression: Small shaped (lake line) edema wear. Pt requires max level of assistance with donning/doffing compression garments. Pt verbalized good understanding of daily wear and care program. Positioning: elevation while at rest B LE Skin Integrity: intact Therapeutic Exercise: pt encouraged to perform muscle pump exercises as tolerated throughout the day to encourage lymphatic drainage Subjective I'm from [employer] Flowsheet Data 11/22/24956 OT Time and Intention OT Follow-Up Visit follow up treatment Mode of Treatment individual therapy;occupational therapy (edema f/u) Patient Effort good Symptoms Noted During/After Treatment none General Information Patient Profile Reviewed yes General Observations of Patient Pt in room drying hair seated in chair Existing Precautions/Restrictions fall Pain Assessment Pretreatment Pain Rating 0/10 - no pain Posttreatment Pain Rating 0/10 - no pain Edema Assessment & Management Location (Edema) lower extremity, left;lower extremity, right;ankle/foot, left;ankle/foot, right Additional Documentation Edema Symptoms/Interventions (Group);Location (Edema) (Row) Compression Garment for Edema 11/20/24909 Placement Date/Time: 11/20/24909 Orientation: lower;right Location: thigh;calf;foot;toes Device Type: Edema Wear Thigh High;Velcro Compression Calf;Velcro Compression Foot Additional Comments: EDEMA WEAR SMALL SHAPED (LAKE LINED) FROM TOES TO M... Wearing Schedule compression device applied Device Care compression device washed Skin Condition intact Compression Garment for Edema 11/20/24909 Placement Date/Time: 11/20/24909 Orientation: left;lower Location: thigh;calf;foot;toes Device Type: Velcro Compression Calf;Velcro Compression Foot;Edema Wear Thigh High Additional Comments: EDEMAWEAR SMALL SHAPED (LAKE LINED) FROM TOES TO HI... Wearing Schedule compression device applied Device Care compression device washed Skin Condition intact Coping Trust Relationship/Rapport care explained;questions answered;questions encouraged;reassurance provided Observed Emotional State calm;cooperative Verbalized Emotional State acceptance Safety Safety Factors patient up in chair All Alarms none present Enhanced Safety Measures chair alarm refused Progress Summary (OT) Progress Toward Functional Goals (OT) progress toward functional goals is good Impairments Still Limiting Function (OT) pt presents decreased mobility to don edema wear independently, reports will be unable to assist Therapy Plan Review/Discharge Plan (OT) Therapy Plan Review (OT) care plan/treatment goals reviewed OT Recommendations for Staff assist of one richard Mcdaniel LE edema wear Sign: Angie Bravo OT * Cathy Koenig DO - 11/21/2024 1:49 PM EDT Progress Note Hospital Day: 5, Admit Date: 11/17/2024 Assessment and plan: Ms. Soliman is a 69 y.o. female with past medical history of asthma, Mcdermott's esophagus, endometrial/cervical cancer, CAD, independent diabetes mellitus, hypertension, hyperlipidemia, chronic pancreatitis, who presented with 2 days of worsening abdominal pain, on initial presentation to outside hospital: lipase was 1428, triglyceride 952. CT abdomen pelvis showed pancreatic edema, patient was transferred from OSH to [facility] admitted to ICU for hypertriglyceridemia. While in ICU patient was on insulin drip, repeat triglyceride level was checked and overall was improving. Insulin drip was discontinued patient was switched to Lantus. Triglycerides were monitored every 8 hours.GI team was consulted for acute on chronic pancreatitis: Diet has been advanced to clear liquids With improvement in initial symptoms, patient has been stable for downgrade to medicine service. After being downgraded to medicine service patient continues to have ongoing severe epigastric painalong with loose stools, her lipase and triglyceride are trending down. GI team is following diet has been slowly being advanced patient remains on full liquid diet Due to episode of hypoglycemia, home Lantus dose has been decreased to 15 units twice daily, patient remains on IV fluid with D5 Assessment & Plan Severe acute pancreatitis Symptoms are slowly improving, she continues to have ongoing postprandial pain GI team has been following recommend outpatient follow-up with GI and likely lipid specialist Continue with home oral pain meds and breakthrough IV pain meds as needed Continue with statin and fenofibrate Asthma Not in exacerbation Mcdermott's esophagus Continue PPI Coronary artery disease Continue statin, Imdur, Lopressor Diabetes mellitus (HCC) Fingersticks have mainly been in the 100s Continue with Lantus 15 units twice daily, along with SSI Diabetic diet Hyperlipidemia Continue with home medications Hypertension Continue with home medication Pancreatic divisum See above Swelling of right upper extremity Ultrasounds negative for DVT Electrolyte abnormality Resolved Diarrhea C. difficile, GI PCR negative Patient has previously tried pancrelipase but had pancreatitis I have updated the Patient and addressed their questions/concerns. Patient declined third-democrat updates Barriers to patient transition/ medical necessity requiring continued inpatient stay acute pancreatitis, minimally improving Quality metrics: # Telemetry: No Active Telemetry Order # Diet: Diet Additional Diets; Low Fat (50gmfat, Low Chol, Low Sat Fat) # Code status: Full Code # Nunn catheter: No Active Urethral Catheter (Nunn) Order # Central lines: # Expected Date of Discharge: 11/23/2024 VTE Time Out IMPROVE SCORE: 7 (11/18/2024 11:43 AM) Interpretation - High Risk Chemical Prophylaxis enoxaparin (LOVENOX) syringe 40 mg Subcutaneous Every 24 hours scheduled Enoxaparin Sodium 40 mg Last dose 11/21/2024 7:44 AM Mechanical Prophylaxis SCDs are ordered - Bilateral (Knee High) Patient declined SCD use, Please review Subjective: Chief complaint No chief complaint on file. Patient is being seen for acute medical problems and follow-up for chronic medical issues as mentioned in the assessment and plan above. # Event overnight: No acute events reported Ms. Soliman was seen earlier today. she reports ongoing epigastric pain that has improved since initial arrival but she is still having postprandial pain requiring IV and p.o. pain medications. Patientdenies nausea or emesis, she also reports dysuria and intermittent right eye swelling Objective: Last Filed Values 11/21/24 0700 BP: (!) 173/67 Pulse: 77 Resp: 12 Temp: 98.6 ??F (37 ??C) TempSrc: Tympanic SpO2: 98% SpO2 Min: 98 % Max: 98 % O2 Device: room air (none) Weight: on admission: 102 kg (224 lb 13.9 oz), (11/17/2024 7:00 PM) Recent: 103 kg (227 lb 4.7 oz),(11/21/2024 5:00 AM) Last Documented Bowel Movement - 11/20/24 (11/21/24 0740) Intake/Output Summary (Last 24 hours) at 11/21/2024 1349 Last data filed at 11/21/2024 1000 Gross per 24 hour Intake 1785 ml Output 0 ml Net 1785 ml General: Patient is sitting at the side of the bed, chronically ill-appearing HEENT: Normocephalic, atraumatic, EOM intact, Mucous membranes moist Heart: S1, S2, RRR Lungs: Clear to auscultation, no added sounds Abdomen: soft, Bowel sounds normal, epigastric tenderness Extremities: No deformities, cyanosis. Bilateral lower extremity edema Skin: warm Neurological: At baseline Scheduled medications 11/21/24 1:49 PM As needed medications: amLODIPine, 10 mg, Oral, Daily atorvastatin, 40 mg, Oral, Daily enoxaparin (LOVENOX) injection for prophylaxis, 40 mg, Subcutaneous, Q24H ALYSSA fenofibrate, 145 mg, Oral, Daily hydrALAZINE, 50 mg, Oral, TID insulin glargine, 15 Units, Subcutaneous, BID isosorbide mononitrate, 30 mg, Oral, Daily metoPROLOL TARTRATE, 100 mg, Oral, Q12H ALYSSA PANTOprazole, 40 mg, Oral, Daily bisacodyl glucose OR glucose OR dextrose OR dextrose OR glucagon dextrose diphenhydrAMINE HYDROmorphone naloxone ondansetron oxyCODONE Current infusions: Diagnostic studies: I have reviewed the labs and ordered new labs if needed. No results for input(s): WBC , HGB , HCT , PLT in the last 72 hours. Recent Labs 11/19/24 0940 K 4.9 PHOS 3.3 No results for input(s): PT , PTT , INR in the last 72 hours. No results for input(s): SARSCOV2 , INFLAV , INFLBV in the last 72 hours. Blood Culture Results Since Admission No results found for this visit on 11/17/24. Urine Culture Results Since Admission No results found for this visit on 11/17/24. Cathy Koenig DO * Cathy Koenig, DO - 11/20/2024 3:16 PM EDT Progress Note Hospital Day: 4, Admit Date: 11/17/2024 Assessment and plan: Ms. Soliman is a 69 y.o. female with past medical history of asthma, Mcdermott's esophagus, endometrial/cervical cancer, CAD, independent diabetes mellitus, hypertension, hyperlipidemia, chronic pancreatitis, who presented with 2 days of worsening abdominal pain, on initial presentation to outside hospital: lipase was 14[address], [address] abdomen pelvis showed pancreatic edema, patient was transferred from OSH to [facility] admitted to ICU for hypertriglyceridemia. While in ICU patient was on insulin drip, repeat triglyceride level was checked and overall was improving. Insulin drip was discontinued patient was switched to Lantus. Triglycerides were monitored every 8 hours.GI team was consulted for acute on chronic pancreatitis: Diet has been advanced to clear liquids With improvement in initial symptoms, patient has been stable for downgrade to medicine service. After being downgraded to medicine service patient continues to have ongoing severe epigastric painalong with loose stools, her lipase and triglyceride are trending down. GI team is following diet has been slowly being advanced patient remains on full liquid diet Due to episode of hypoglycemia, home Lantus dose has been decreased to 15 units twice daily, patient remains on IV fluid with D5 Assessment & Plan Severe acute pancreatitis Slowly improving Continue with IV fluids Pain meds per pain scale Will resume home oral pain meds and continue with IV Dilaudid as needed for breakthrough Continue statin and fenofibrate Patient will need outpatient follow-up with GI Asthma Not in exacerbation Mcdermott's esophagus Continue PPI Coronary artery disease Continue with home medication including statin, Imdur and Lopressor Diabetes mellitus (HCC) Continue with lower dose of Lantus 15 units twice daily Once patient's oral intake improves, will increase Lantus dose Hyperlipidemia Continue with home medications Hypertension Continue Lopressor, Norvasc, hydralazine Pancreatic divisum Continue current treatment for acute pancreatitis Swelling of right upper extremity Ultrasound is negative for DVT Electrolyte abnormality Resolved Diarrhea GI PCR, C. difficile testing has been ordered I have updated the Patient and addressed their questions/concerns. Patient declined third-democrat updates Barriers to patient transition/ medical necessity requiring continued inpatient stay acute pancreatitis, minimally improving Quality metrics: # Telemetry: No Active Telemetry Order # Diet: Diet Full Liquid; Low Fat (50gmfat, Low Chol, Low Sat Fat) # Code status: Full Code # Nunn catheter: No Active Urethral Catheter (Nunn) Order # Central lines: # Expected Date of Discharge: 11/22/2024 VTE Time Out IMPROVE SCORE: 7 (11/18/2024 11:43 AM) Interpretation - High Risk Chemical Prophylaxis enoxaparin (LOVENOX) syringe 40 mg Subcutaneous Every 24 hours scheduled Enoxaparin Sodium 40 mg Last dose 11/20/2024 9:53 AM Mechanical Prophylaxis SCDs are ordered - Bilateral (Knee High) Patient declined SCD use, Please review Subjective: Chief complaint No chief complaint on file. Patient is being seen for acute medical problems and follow-up for chronic medical issues as mentioned in the assessment and plan above. # Event overnight: No acute events reported Ms. Soliman was seen earlier today. she reports ongoing epigastric pain and multiple bouts of watery bowel movements overnight. She also reports nausea, denies emesis. Patient denies any other complaints Objective: Last Filed Values 11/20/24 1346 BP: 117/66 Pulse: Resp: Temp: TempSrc: SpO2: SpO2 Min: 97 % Max: 98 % O2 Device: room air (none) Weight: on admission: 102 kg (224 lb 13.9 oz), (11/17/2024 7:00 PM) Recent: 102 kg (224 lb 6.9 oz),(11/20/2024 6:00 AM) Last Documented Bowel Movement - 11/20/24 (11/20/24 0051) Intake/Output Summary (Last 24 hours) at 11/20/2024 1516 Last data filed at 11/19/2024 2057 Gross per 24 hour Intake 15 ml Output 0 ml Net 15 ml Physical Exam Constitutional - ill appearing. Head - normocephalic and atraumatic. Eyes - extraocular movements intact. Nose - appears normal. Neck - supple. Cardiovascular - normal rate and regular rhythm. Pulmonary - breath sounds present bilaterally. no wheezing and no crackles. Abdominal - soft. Ongoing epigastric tenderness Musculoskeletal - Bilateral lower extreme edema, lymphedema wear in place Skin - warm. Neurological - alert and oriented x 4. Scheduled medications 11/20/24 3:16 PM As needed medications: amLODIPine, 10 mg, Oral, Daily atorvastatin, 40 mg, Oral, Daily enoxaparin (LOVENOX) injection for prophylaxis, 40 mg, Subcutaneous, Q24H ALYSSA fenofibrate, 145 mg, Oral, Daily hydrALAZINE, 50 mg, Oral, TID insulin glargine, 15 Units, Subcutaneous, BID isosorbide mononitrate, 30 mg, Oral, Daily metoPROLOL TARTRATE, 100 mg, Oral, Q12H ALYSSA PANTOprazole, 40 mg, Oral, Daily bisacodyl glucose OR glucose OR dextrose OR dextrose OR glucagon dextrose HYDROmorphone naloxone ondansetron oxyCODONE Current infusions: dextrose 5% in lactated ringers, 75 mL/hr, Last Rate: 75 mL/hr (11/20/24 1346) Diagnostic studies: I have reviewed the labs and ordered new labs if needed. Recent Labs 11/17/24202411/18/24 0605 WBC 9.9 11.2* HGB 13.0 12.6 HCT 40.5 37.6 PLT 221 245 Recent Labs 11/17/24202411/18/24 0410 11/18/24 0605 11/19/24 0940 NA 138 -- 133* -- K 3.3* 3.6 3.3* 4.9 CO2 22 -- 24 -- CL 103 -- 101 -- BUN 12 -- 7* -- CREAT 0.6 -- 0.6 -- CALCIUM 8.9 -- 8.6* -- MG 1.8 -- 1.7 -- PHOS 2.2* -- 2.1* 3.3 BILITOT -- -- 0.4 -- ALKPHOS -- -- 78 -- AST -- -- 22 -- ALT -- -- 13 -- ALBUMIN -- -- 3.4 -- No results for input(s): PT , PTT , INR in the last 72 hours. No results for input(s): SARSCOV2 , INFLAV , INFLBV in the last 72 hours. Blood Culture Results Since Admission No results found for this visit on 11/17/24. Urine Culture Results Since Admission No results found for this visit on 11/17/24. Cathy Koenig DO * Poly Canales PA-C - 11/20/2024 12:10 PM EDT Gastroenterology Progress Note Principal Problem: Severe acute pancreatitis (POA: Yes) Active Problems: Asthma (POA: Unknown) Mcdermott's esophagus (POA: Unknown) Coronary artery disease (POA: Unknown) Diabetes mellitus (HCC) (POA: Unknown) Hyperlipidemia (POA: Unknown) Hypertension (POA: Unknown) Pancreatic divisum (POA: Not Applicable) Swelling of right upper extremity (POA: Unknown) Electrolyte abnormality (POA: Unknown) Resolved Problems: 69 y.o. Assessment & Plan Assessment This is a 69-year-old female with past medical history significant for asthma, Mcdermott's esophagus,endometrial/cervical cancer, CAD, type II DM, hypertension, hyperlipidemia, history of pancreatitis2/2 high triglycerides, pancreatic divisum who presented initially to outside hospital with acute onset upper abdominal pain, found to have pancreatitis as well as significantly elevated triglycerides close to 1000 and was transferred to [facility] for ICU bed availability and insulin drip. She responded well to insulin drip, with triglycerides down to 358 yesterday, was transferred to medical floor yesterday. Abdominal pain slowly improving. Current episode consistent with recurrent acute pancreatitis 2/[address] scan report is not available however she does not have elevated LFTs to indicate gallstone pancreatitis. No alcohol use. Hospital course complicated by development of diarrhea, differential includes diarrhea due to pancreatic insufficiency in context of recurrent episodes of pancreatitis versus infectious diarrhea, GI PCR panel is pending, additionally C. difficile is considered given personal history of C. difficile1 to 2 years ago and recent antibiotic use. Plan # Recurrent acute pancreatitis 2/2 hypertriglyceridemia # Pancreatic divisum -[place] score of 2, with low (1%) predicted mortality. -Continue maintenance IV fluid hydration until tolerating more substantial dietary intake. Aggressive hydration not needed at this time. -Continue full liquid diet, advance as tolerated to a low-fat diet. -Continue fenofibrate. -Supportive care including pain and nausea management as per primary team. -No indication for repeat abdominal imaging at this time. Can consider repeat imaging in several days time if patient has any worsening of symptoms or no significant improvement. -May benefit from referral to lipid specialist as she has had recurrent episodes of pancreatitis secondary to hypertriglyceridemia. -Outpatient follow-up with her home [facility] [employer] (in [place]) should be arranged. # Diarrhea -GI PCR panel pending. -Please obtain stool sample to check for C. difficile. Risk factors include personal history of C. difficile and recent antibiotic use (Macrobid for UTI in October 2024 and Keflex for eyelid cellulitis earlier this month). -If infectious stool testing results negative, can give Imodium as needed for symptomatic management of diarrhea. Additionally, would consider trial of Creon for pancreatic insufficiency if infectious stool testing negative. # Mcdermott's esophagus -Continue PO PPI daily. The patient case/plan will be discussed with attending physician, Dr. Martínez. Subjective Patient seen and evaluated at bedside. Afebrile, hemodynamically stable. Continued abdominal pain, somewhat improved today. On full liquid diet. Pain is exacerbated by PO intake. Some nausea without vomiting. Watery nonbloody diarrhea, precipitated on by PO intake, with 4 documented BMs in the past 24 hours, per patient has had closer to 8 BMs in the past 24 hours. GI PCR panel pending. Of note, patient admits to history of C. difficile approximately 1 to 2 years ago as well as recentantibiotic use including Macrobid for UTI in October 2024 and Keflex for eyelid cellulitis just prior to this hospital admission. Objective Meds Current Facility-Administered Medications: amLODIPine (NORVASC) tablet 10 mg, 10 mg, Oral, Daily, Cathy Koenig DO, 10 mg at 11/20/24 09 atorvastatin (LIPITOR) tablet 40 mg, 40 mg, Oral, Daily, Cathy Koenig DO, 40 mg at 11/20/24 0954 bisacodyl (DULCOLAX) suppository 10 mg, 10 mg, Rectal, Daily PRN, Cathy Koenig DO dextrose 5 % in lactated ringers (D5LR) infusion, 75 mL/hr, Intravenous, Continuous, Cathy Koenig DO, Last Rate: 75 mL/hr at 11/20/24 005, 75 mL/hr at 11/20/2450 glucose (GLUTOSE 15) 40 % oral gel 37.5 g, 1 Tube, Oral, Q15 Min PRN OR glucose (GLUTOSE 15) 40% oral gel 75 g, 2 Tube, Oral, Q15 Min PRN OR dextrose 50 % solution 12.5 g, 12.5 g, Intravenous, Q15 Min PRN OR dextrose 50 % solution 25 g, 25 g, Intravenous, Q15 Min PRN, 25 g at 11/17/241939 OR glucagon (GLUCAGEN) injection 1 mg, 1 mg, Intramuscular, Daily PRN, Cathy Koenig DO dextrose 50 % solution 25 g, 25 g, Intravenous, Once PRN, Cathy Koenig DO enoxaparin (LOVENOX) syringe 40 mg, 40 mg, Subcutaneous, Q24H ALYSSA, Cathy Koenig DO, 40 mg at 11/20/24952 fenofibrate (TRICOR) tablet 145 mg, 145 mg, Oral, Daily, Cathy Koenig, DO, 145 mg at 11/20/24953 hydrALAZINE (APRESOLINE) tablet 50 mg, 50 mg, Oral, TID, Cathy Koenig DO, 50 mg at 11/20/24 0954 HYDROmorphone (DILAUDID) injection 0.5 mg, 0.5 mg, Intravenous, Q4H PRN, Cathy Koenig DO, 0.5 mg at 11/20/24 0959 insulin glargine (LANtus/SEMGLEE) 100 units/mL injection 15 Units, 15 Units, Subcutaneous, BID, Cathy Koenig, DO, 15 Units at 11/20/24 09 isosorbide mononitrate (IMDUR) 24 hr tablet 30 mg, 30 mg, Oral, Daily, Cathy Koenig DO, 30 mg at 11/20/24 09 metoPROLOL TARTRATE (LOPRESSOR) tablet 100 mg, 100 mg, Oral, Q12H ALYSSA, Cathy Koenig DO, 100 mg at 11/20/24953 naloxone (NARCAN) 0.4 mg/mL injection 0.4 mg, 0.4 mg, Intravenous, Q5 Min PRN, Cathy Koenig DO ondansetron (ZOFRAN) injection 4 mg, 4 mg, Intravenous, Q6H PRN, Cathy Koenig DO, 4 mg at 03/13/862369 oxyCODONE (ROXICODONE) immediate release tablet 10 mg, 10 mg, Oral, Q8H PRN, Cathy Aurea DO Champ, 10 mg at 11/20/24 1035 PANTOprazole (PROTONIX) EC tablet 40 mg, 40 mg, Oral, Daily, Cathy Koenig DO, 40 mg at 11/20/24 0954 Last Vitals Pulse:85,Resp:18,BP:(!) 154/74,SpO2:98 %,Weight:102 kg (224 lb 6.9 oz) Temp Last 24 hrs: Temp Min: 98.3 ??F (36.8 ??C) Max: 98.8 ??F (37.1 ??C) Intake/Output Summary (Last 24 hours) at 11/20/2024 1228 Last data filed at 11/19/20242056 Gross per 24 hour Intake 45 ml Output 0 ml Net 45 ml Physical Exam General appearance: 69-year-old female, NAD, awake alert and cooperative Eyes: conjunctivae/corneas clear. No icterus ENT: Moist mucous membranes Lungs: no respiratory distress Abdomen: Soft, tender to palpation in epigastric and right upper quadrant with some guarding but norebound. Mild distension. Extremities: 1+ bilateral lower extremity edema Skin: Skin color, texture, turgor normal. Neurologic: Grossly normal Relevant data reviewed Results from last 7 days Lab Units 11/18/24 0605 11/17/242024 WHITE BLOOD CELL COUNT Thou/uL 11.2* 9.9 HEMOGLOBIN g/dL 12.6 13.0 HEMATOCRIT % 37.6 40.5 PLATELET COUNT Thou/uL 245 221 Results from last 7 days Lab Units 11/20/24 1150 11/19/24 1145 11/19/24 0940 11/18/24 0700 11/18/24 0605 GLUCOSE mg/dL -- -- -- -- 165* GLUCOSE, POC mg/dL 145* < > -- < > -- CALCIUM mg/dL -- -- -- -- 8.6* SODIUM mmol/L -- -- -- -- 133* POTASSIUM mmol/L -- -- 4.9 -- 3.3* CO2 mmol/L -- -- -- -- 24 CHLORIDE mmol/L -- -- -- -- 101 BUN mg/dL -- -- -- -- 7* CREATININE mg/dL -- -- -- -- 0.6 < > = values in this interval not displayed. Results from last 7 days Lab Units 11/19/24 0514 LIPASE U/L 137* Results from last 7 days Lab Units 11/18/24 0605 ALT U/L 13 AST U/L 22 ALK PHOS U/L 78 BILIRUBIN TOTAL mg/dL 0.4 Computed MELD 3.0 unavailable. One or more values for this score either were not found within the given timeframe or did not fit some other criterion. Computed MELD-Na unavailable. One or more values for this score either were not found within the given timeframe or did not fit some other criterion. Imaging Studies Procedures Sign Poly Canales PA-C 11/20/2024 12:28 PM Associated attestation - Nirmal Martínez MD - 11/20/2024 8:14 PM EDT I saw and examined Felecia Soliman, obtained history, reviewed all available investigations, and discussed and developed the assessment and plan with Ms. RODNEY Krishnan * Nirmal Torres, NYASIA - 11/20/2024 10:34 AM EDT Physical Therapy Progress Note Assessment Summary: Pt seen for follow up PT treatment. Pt agreeable and willing to participate in PT session.Spoke to RN prior to PT session, no contraindications noted. Patient performed supine<>Sit with cga, STS with SBA, and ambulated 50 feet with rw and cga. Patient had minor complaints of pain and is displaying improving mobility and activity tolerance. Prior Level of Function: At baseline, patient lives with in a 2 level house, 2-3 KWADWO, patient can stay on one level at home. has a cane that she uses occassionally, I with adls and iadls. [facility] Current Level of Function and Impairments: Patient currently presents with decreased strength, activity tolerance and endurance with functional mobility. Safety Measures: Patient was left in bed, call smith in reach, needs addressed, and alarm set. Outcome Measures: Activity Measure for Post-Acute Care (AMPAC) is a standardized assessment used to identify functional impairments in mobility and self-care. A higher score indicates higher level of independence for tasks. Baseline [facility] Basic Mobility Score: 23 Current [facility] Basic Mobility Score: 18 ([facility] Mobility Raw Score of 14-19 indicates 40-60% impairment with mobility) Current [facility] Daily Activity Score: 20 Progress Towards Goals: progress toward functional goals is fair Rehab Plan of Care Patient would benefit from ongoing physical therapy services at home to address acute impairments following hospital stay. Patient is currently below prior level of function and has potential to achieve goal of maximizing functional independence with continuation of skilled physical therapy intervention. If transitioning to home, patient will require walker, rolling and home PT 1.) PT Recommendations for Staff: assist x 1 with walker 2.) PT Frequency: 3-5 times/wk during hospitalization 3.) Plan of Care Reviewed With: 4.) Transition Care Planning: Patient's current level of function and post-acute rehab needs discussed with IDT. Objective Data Bed Mobility Assessment/Intervention: supine<>Sit with cga Transfers Assessment/Intervention: STS with SBA Gait/Stair Assessment/Intervention: ambulated 50 feet with rw and cga Activity Tolerance/Endurance Assessment/Intervention: reduced due to pain and fatigue Education: benefits of mobility, safety awareness, pacing self and resting as needed Subjective Patient willing to work with PT Flowsheet Data 11/20/24 1034 Physical Therapy Time and Intention PT Follow-Up Visit follow up treatment Mode of Treatment individual therapy;physical therapy Patient Effort good Symptoms Noted During/After Treatment fatigue General Information General Observations of Patient resting in bed Existing Precautions/Restrictions fall Pain Scale: Numbers Pre/Post-Treatment Pretreatment Pain Rating 7/10 Posttreatment Pain Rating 8/10 Pain Location - abdomen Safety Safety Factors wheels locked;upper side rails raised x 2;ID band on;call light in reach;bed in low position Progressive Mobility Progressive Mobility Level Achieved Ambulation Ambulation Distance (Feet) 50 [facility] Basic Mobility Turning from your back to your side while in a flat bed without using bedrails? 3 Moving from lying on your back to sitting on the side of a flat bed without using bedrails? 3 Moving to and from a bed to a chair (including wheelchair)? 3 Standing up from a chair using your arms? 3 To walk in a hospital room? 3 Climbing 3-5 steps with a railing? 3 [facility] Basic Mobility Score 18 Progress Summary (PT) Progress Toward Functional Goals (PT) progress toward functional goals is fair Sign: Nirmal Torres, NYASIA * Rula Lowe, OT - 11/20/2024 9:10 AM EDT OT Edema Assessment Current Diagnosis and Pertinent Medical History: Felecia Soliman is a 69 y.o. female referred to skilled OT services [facility] past medical history of asthma, Mcdermott's esophagus, endometrial/cervical cancer, CAD, independent diabetes mellitus, hypertension, hyperlipidemia, chronic pancreatitis, who presented with 2 days of worsening abdominal pain, CT abdomen pelvis showed pancreatic edema, patient wastransferred from OSH to [facility] admitted to ICU for hypertriglyceridemia. While in ICU patient was on insulin drip, repeat triglyceride level was checked and overall was improving, drip discontinued. Precautions/Restrictions: fall Edema History Edema History: per pt has had edema in bl le's my whole life CDT History: none Compression History: none Patient Stated Edema Goals: decreased edema to improve adls and mobility Assessment & Plan Assessment: Pt presents to session with notable edema in the bl le. Given the new acute on chronic edema in bl le, the pt states the edema interferes with functional activities such as lb adls and mobility. While in the acute setting, the pt would benefit from the following compression garments: small shaped edema wear under foot and calf farrow wrap to facilitate a reduction of edema in the bl le and to improve functional performance, reduce infection risk, and improve comfort. Pt seen for afternoon session for recommended compression application to safely address bl le edema. Pt fit with small shaped edema wear under foot and calf farrow wraps . Verbal and written instructions for compression garments including donning and doffing, precautions, wearing schedule, & washing instructions provided to ensure carryover of care. Active orders pended for provider on this date. Pt will benefit from follow-up with an outpatient CLT once medically stable and appropriate for further edema management. Plan/Recommendations: Edema Management Recommendations: BLE: Size small shaped (dumas line) edemawear from knee to groin, Farrow foot wrap, and Farrow calf wrap BID skin checks Bl le elevation while at rest Bl le therex routine 3x/day- issued for hep Edema Treatment Frequency: 24 hr follow up by CLT, followed by progress checks 1-2x a week for LOS.Daily checks by rehabilitator will be initiated. Plan of Care Reviewed With: care plan/treatment goals reviewed Patient/Family/Floor Nursing Education: the role of edema management therapy, positioning, skin checks, lymphedema prevention, infection prevention. Outcome Measures Measurements: Right Left Foot 26.0cm 26.5cm Ankle 29.5cm 30.5cm Calf 41.0cm 43.5cm Popliteal Fossa 44.7cm 43.0cm Mid Thigh 54.0cm 54.0cm Weight: 102 kg Objective Data Edema Assessment: BL le, chronic edema, pt reported has had several cellulitis infections Observations: Pt presents with visible edema in the bl le Tissue Texture: firm, fibrotic, Pitting Edema: 3+ Skin Abnormalities present in the bl le: Skin changes: Obscuration of anatomical architecture, Skin dryness, Shiny skin, Hair loss, Hyperkeratosis,Thickened Toe Nails Color: inflammation, increased pigmentation, hemosiderin staining, Stemmer Sign: positive Sensation: intact Pain: 0/10 bl le Edema Interventions Manual Lymph Drainage: na Skin Integrity: intact, red chance stained skin Compression: Pt measured and fit for the following compression garments:small shaped edema wear under foot and calf farrow wrap . Pt requires mod assist with donning/ doffing compression garments andwas able to verbalize understanding of daily wear and care program. Positioning: elevation bl le Therapeutic Exercise: muscle pump exercises encouraged, issued and instructed bl ue and lb therex for home Education: Instructions on donning, doffing, wear schedule, care of garment, and contact information provided to patient verbally and with a handout. [facility]. RN informed of compression garment. Pt lives in [facility], issued and instructed with bl le foot and calf velcro wraps, small shaped edema wear, non compression liners and hybrid compressive foot liner for options, also issued info sheet on bioflect pants as another option, encouraged pt to look for lymphedema therapist and pelvic floor therapist when pt goes home Subjective I'm from [place] Past Medical/Surgery History Past Medical/Surgery History Past Medical History: Diagnosis Date Asthma Mcdermott's esophagus Cancer (HCC) endometrial Cervical cancer (HCC) Coronary artery disease Diabetes mellitus (HCC) IDDM Embolism (HCC) Hyperlipidemia hypertriglyceridemia Hypertension Pancreatic divisum Recurrent acute pancreatitis Past Surgical History: Procedure Laterality Date CHOLECYSTECTOMY HERNIA REPAIR HYSTERECTOMY Flowsheet 11/20/24 09 OT Time and Intention OT Visit Type initial evaluation Mode of Treatment individual therapy;occupational therapy (edema eval) Patient Effort good Symptoms Noted During/After Treatment fatigue General Information Patient Profile Reviewed yes Onset of Illness/Injury or Date of Surgery 11/17/[address] Koenig General Observations of Patient pt found resting supine in bed Pertinent History of Current Functional Problem referred to skilled OT services [facility] past medical history of asthma, Mcdermott's esophagus, endometrial/cervical cancer, CAD, independent diabetes mellitus, hypertension, hyperlipidemia, chronic pancreatitis, who presented with 2 days of worsening abdominal pain, CT abdomen pelvis showed pancreatic edema, patient was transferred from [facility] to [facility] admitted to ICU for hypertriglyceridemia. While in ICU patient was on insulin drip, repeat triglyceride level was checked and overall was improving, drip discontinued Existing Precautions/Restrictions fall Previous Level of Function/Home Environm Previous Level of Function, Premorbid patient lives with in a 2 level house, 2-3 KWADWO, patient can stay on one level at home. has a cane that she uses occassionally, I with adls and iadls. [facility] Occupational Profile Reason for Services/Referral (Occupational Profile) bl le chronic edema Pain Assessment Pretreatment Pain Rating 8/10 Posttreatment Pain Rating 8/10 Pain Location - abdomen Edema Assessment & Management Location (Edema) lower extremity, left;lower extremity, right;ankle/foot, left;ankle/foot, right Additional Documentation Edema Symptoms/Interventions (Group);Location (Edema) (Row);Compression Garment for Edema (LDA) Edema Symptoms/Interventions Treatment Interventions (Edema) compression garment/sleeve (EW/FW) Associated Symptoms (Edema) hair growth changes;pain;skin color changes;skin creases diminished Description (Edema) fibrotic;localized;pitting Pitting Scale (Edema) 3-->moderate Compression Garment for Edema 11/20/24909 Placement Date/Time: 11/20/24909 Orientation: lower;right Location: thigh;calf;foot;toes Device Type: Edema Wear Thigh High;Velcro Compression Calf;Velcro Compression Foot Additional Comments: EDEMA WEAR SMALL SHAPED (LAKE LINED) FROM TOES TO M... Wearing Schedule compression device applied Device Care site cleaned Skin Condition intact Compression Garment for Edema 11/20/24909 Placement Date/Time: 11/20/24909 Orientation: left;lower Location: thigh;calf;foot;toes Device Type: Velcro Compression Calf;Velcro Compression Foot;Edema Wear Thigh High Additional Comments: EDEMAWEAR SMALL SHAPED (LAKE LINED) FROM TOES TO HI... Wearing Schedule compression device applied Device Care site cleaned Skin Condition intact Coping Trust Relationship/Rapport care explained Observed Emotional State calm;cooperative Verbalized Emotional State acceptance Safety Safety WDL WDL Safety Factors wheels locked;upper side rails raised x 2;ID band on;call light in reach;bed in low position All Alarms none present Enhanced Safety Measures bed alarm refused Progressive Mobility Progressive Mobility Level Achieved Ambulation Therapy Assessment/Plan (OT) Predicted Duration of Therapy Intervention (OT) EDEMA 1-2x wk for los Progress Summary (OT) Progress Toward Functional Goals (OT) progress toward functional goals is good Therapy Plan Review/Discharge Plan (OT) Therapy Plan Review (OT) care plan/treatment goals reviewed OT Recommendations for Staff assisit of one with don/doffing bl le small shaped edema wear under velcro calf and foot pieces OT Goals Problem Specific Goal Selection (OT) problem specific goal 1, OT Problem Specific Goal 1 (OT) Strategies/Barriers (Problem Specific Goal 1, OT) Pt presents with a decline in dressing, bathing, toileting and mobility requiring extra assitance and time to complete tasks. Progress/Outcome (Problem Specific Goal 1, OT) good progress toward goal Problem Specific Goal 1 (OT) Pt to tolerate bl le small shaped edema wear under fw calf and foot peices for day use and off at night Time Frame (Problem Specific Goal 1, OT) 2 weeks Sign: Rula Lowe OT * RODNEY Ye - 11/19/2024 1:25 PM EDT Gastroenterology Progress Note Principal Problem: Severe acute pancreatitis (POA: Yes) Active Problems: Asthma (POA: Unknown) Mcdermott's esophagus (POA: Unknown) Coronary artery disease (POA: Unknown) Diabetes mellitus (HCC) (POA: Unknown) Hyperlipidemia (POA: Unknown) Hypertension (POA: Unknown) Pancreatic divisum (POA: Not Applicable) Swelling of right upper extremity (POA: Unknown) Electrolyte abnormality (POA: Unknown) Resolved Problems: 69 y.o. Assessment & Plan Assessment This is a 69-year-old female with past medical history significant for asthma, Mcdermott's esophagus,endometrial/cervical cancer, CAD, dependent type 2 diabetes, hypertension, hyperlipidemia, history of pancreatitis secondary to high triglycerides and history of pancreatic divisum who presented withacute onset upper abdominal pain that began 2 days ago and was found to have acute recurrent pancreatitis at an outside hospital with significantly elevated triglycerides close to 1000 who was transferred to [facility] for ICU bed availability and insulin drip. Currently triglycerides have dropped below 500 and her abdominal pain is starting to improve. Pancreatitis likely secondary to high triglycerides. No history of alcohol use. Full CT scan report is not available however she does not have elevated LFTs to indicate gallstone pancreatitis. Plan #Acute, recurrent pancreatitis 2\2 hypertriglyceridemia #Hypertriglyceridemia #Pancreatic divisum -Emanuel score of 2 with a 1% predicted mortality. - continue maintenance IV fluid hydration until tolerating a diet. Does not need aggressive hydration - continue clear liquid diet and advance as tolerated to a low-fat diet - Continue fenofibrate. 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 Can consider repeat imaging in several days if patient has worsening of symptoms or no significant improvement. The patient case/plan to be reviewed with attending physician, Dr. Kan. Subjective The patient is seen and evaluated at the bedside. Improved pain today although still with increasedpain with po intake. Remains on CLD. She is afebrile and hemodynamically stable. WBC 11.2, NA 133, K 3.3, BUN 7, Lipase 137, Triglycerides 358. Objective Meds Current Facility-Administered Medications: amLODIPine (NORVASC) tablet 10 mg, 10 mg, Oral, Daily, Israr H Koenig, DO, 10 mg at 11/19/24 0831 atorvastatin (LIPITOR) tablet 40 mg, 40 mg, Oral, Daily, Israr H Koenig, DO, 40 mg at 11/19/24 0831 bisacodyl (DULCOLAX) suppository 10 mg, 10 mg, Rectal, Daily PRN, Cathy Koenig DO dextrose 5 % in lactated ringers (D5LR) infusion, 75 mL/hr, Intravenous, Continuous, Cathy Koenig DO, Last Rate: 75 mL/hr at 11/19/24 0839, 75 mL/hr at 11/19/24 0839 glucose (GLUTOSE 15) 40 % oral gel 37.5 g, 1 Tube, Oral, Q15 Min PRN OR glucose (GLUTOSE 15) 40% oral gel 75 g, 2 Tube, Oral, Q15 Min PRN OR dextrose 50 % solution 12.5 g, 12.5 g, Intravenous, Q15 Min PRN OR dextrose 50 % solution 25 g, 25 g, Intravenous, Q15 Min PRN, 25 g at 11/17/24 1940 OR glucagon (GLUCAGEN) injection 1 mg, 1 mg, Intramuscular, Daily PRN, Cathy Koenig DO dextrose 50 % solution 25 g, 25 g, Intravenous, Once PRN, Cathy Koenig DO enoxaparin (LOVENOX) syringe 40 mg, 40 mg, Subcutaneous, Q24H ALYSSA, Cathy Koenig DO, 40 mg at 11/19/24 0830 fenofibrate (TRICOR) tablet 145 mg, 145 mg, Oral, Daily, Cathy Koenig DO, 145 mg at 11/19/24 0830 hydrALAZINE (APRESOLINE) tablet 50 mg, 50 mg, Oral, TID, Cathy Koenig DO, 50 mg at 11/19/24 1307 HYDROmorphone (DILAUDID) injection 1 mg, 1 mg, Intravenous, Q3H PRN, Cathy Koenig DO, 1 mg at 11/19/24 1307 insulin glargine (LANtus/SEMGLEE) 100 units/mL injection 15 Units, 15 Units, Subcutaneous, BID, Cathy Koenig DO, 15 Units at 11/19/24 0902 isosorbide mononitrate (IMDUR) 24 hr tablet 30 mg, 30 mg, Oral, Daily, Cathy Koenig DO, 30 mg at 11/19/24 0831 metoPROLOL TARTRATE (LOPRESSOR) tablet 100 mg, 100 mg, Oral, Q12H ALYSSA, Israr H Champ, DO, 100 mg at 11/19/24 0830 naloxone (NARCAN) 0.4 mg/mL injection 0.4 mg, 0.4 mg, Intravenous, Q5 Min PRN, Darrellr Aurea Koenig, DO ondansetron (ZOFRAN) injection 4 mg, 4 mg, Intravenous, Q6H PRN, Israr H Champ, DO, 4 mg at 558 PANTOprazole (PROTONIX) EC tablet 40 mg, 40 mg, Oral, Daily, Israr H Koenig, DO, 40 mg at 11/19/24 0831 Last Vitals Pulse:69,Resp:16,BP:130/68,SpO2:95 %,Weight:103 kg (227 lb 15.3 oz) Temp Last 24 hrs: Temp Min: 98.7 ??F (37.1 ??C) Max: 99.6 ??F (37.6 ??C) Intake/Output Summary (Last 24 hours) at 11/19/2024 1326 Last data filed at 11/19/2024 0800 Gross per 24 hour Intake 270 ml Output 225 ml Net 45 ml Physical Exam General appearance: 69-year-old female, ill-appearing, no acute distress, awake, alert and cooperative Eyes: conjunctivae/corneas clear. No icterus ENT: Moist mucous membranes Lungs: no respiratory distress Heart: regular rate and rhythm, no murmur Abdomen: Soft, tenderness in the epigastric and right upper quadrant with some guarding but no rebound. Mild distension but improved. BS+ Extremities: 2+ bilateral lower extremity edema skin: Skin color, texture, turgor normal. Neurologic: Grossly normal Relevant data reviewed Results from last 7 days Lab Units 11/18/24 0605 11/17/242024 WHITE BLOOD CELL COUNT Thou/uL 11.2* 9.9 HEMOGLOBIN g/dL 12.6 13.0 HEMATOCRIT % 37.6 40.5 PLATELET COUNT Thou/uL 245 221 Results from last 7 days Lab Units 11/19/24 1145 11/19/24 0940 11/18/24 0700 11/18/24 0605 GLUCOSE mg/dL -- -- -- 165* GLUCOSE, POC mg/dL 120* -- < > -- CALCIUM mg/dL -- -- -- 8.6* SODIUM mmol/L -- -- -- 133* POTASSIUM mmol/L -- 4.9 -- 3.3* CO2 mmol/L -- -- -- 24 CHLORIDE mmol/L -- -- -- 101 BUN mg/dL -- -- -- 7* CREATININE mg/dL -- -- -- 0.6 < > = values in this interval not displayed. Results from last 7 days Lab Units 11/19/24 0514 LIPASE U/L 137* Results from last 7 days Lab Units 11/18/24 0605 ALT U/L 13 AST U/L 22 ALK PHOS U/L 78 BILIRUBIN TOTAL mg/dL 0.4 Computed MELD 3.0 unavailable. One or more values for this score either were not found within the given timeframe or did not fit some other criterion. Computed MELD-Na unavailable. One or more values for this score either were not found within the given timeframe or did not fit some other criterion. Imaging Studies Procedures Sign RODNEY Ye 11/19/2024 1:26 PM Associated attestation - Jazzy Kan MD - 11/19/2024 9:57 PM EDT Continue supportive care for pancreatitis * Cathy Koenig DO - 11/19/2024 12:23 PM EDT Progress Note Hospital Day: 3, Admit Date: 11/17/2024 Assessment and plan: Ms. Soliman is a 69 y.o. female with past medical history of asthma, Mcdermott's esophagus, endometrial/cervical cancer, CAD, independent diabetes mellitus, hypertension, hyperlipidemia, chronic pancreatitis, who presented with 2 days of worsening abdominal pain, on initial presentation to outside hospital: lipase was 1428, triglyceride 952. CT abdomen pelvis showed pancreatic edema, patient was transferred from OSH to [facility] admitted to ICU for hypertriglyceridemia. While in ICU patient was on insulin drip, repeat triglyceride level was checked and overall was improving. Insulin drip was discontinued patient was switched to Lantus. Triglycerides were monitored every 8 hours.GI team was consulted for acute on chronic pancreatitis: Diet has been advanced to clear liquids With improvement in initial symptoms, patient has been stable for downgrade to medicine service. Assessment & Plan Severe acute pancreatitis History of pancreatic divisum and recurrent acute pancreatitis Lipase level of 137 today, triglyceride 358, overall downtrending Continue with statin, fenofibrate Continue with gentle IV fluids GI team is following recommendations appreciated She is currently on a clear liquid diet, will slowly advance with improvement in her symptoms Asthma Not in exacerbation Mcdermott's esophagus Continue PPI Coronary artery disease Continue with statin, Imdur, Lopressor Diabetes mellitus (HCC) Patient was hypoglycemic this morning She has had minimal oral intake so far Will start IV fluids with D5 and decrease Lantus to 15 units twice daily Hyperlipidemia Continue with home medications Hypertension Continue with Lopressor, Norvasc, hydralazine Pancreatic divisum See above Swelling of right upper extremity Will obtain ultrasound Electrolyte abnormality Hypokalemia, resolved Hypophosphatemia, resolved I have updated the Patient and addressed their questions/concerns. Barriers to patient transition/ medical necessity requiring continued inpatient stay: Acute on chronic pancreatitis, with ongoing abdominal discomfort requiring IV pain medications Quality metrics: # Telemetry: No Active Telemetry Order # Diet: Diet Clear Liquid # Code status: Full Code # Nunn catheter: No Active Urethral Catheter (Nunn) Order # Central lines: # Expected Date of Discharge: 11/22/2024 VTE Time Out IMPROVE SCORE: 7 (11/18/2024 11:43 AM) Interpretation - High Risk Chemical Prophylaxis enoxaparin (LOVENOX) syringe 40 mg Subcutaneous Every 24 hours scheduled Enoxaparin Sodium 40 mg Last dose 11/19/2024 8:30 AM Mechanical Prophylaxis SCDs are ordered - Bilateral (Knee High) Subjective: Chief complaint No chief complaint on file. Patient is being seen for acute medical problems and follow-up for chronic medical issues as mentioned in the assessment and plan above. # Event overnight: No acute events reported Ms. Sloiman was seen earlier today. she reports ongoing epigastric pain, worse after any oral intake along with nausea. She denies headache, dizziness, chest pain, dyspnea or lower extremity pain Objective: Last Filed Values 11/19/24 1125 BP: 130/68 Pulse: 69 Resp: 16 Temp: 98.7 ??F (37.1 ??C) TempSrc: Tympanic SpO2: 95% SpO2 Min: 93 % Max: 99 % O2 Device: room air (none) Weight: on admission: 102 kg (224 lb 13.9 oz), (11/17/2024 7:00 PM) Recent: 103 kg (227 lb 15.3 oz), (11/19/2024 11:25 AM) Last Documented Bowel Movement - 11/18/24 (11/19/24 0800) Intake/Output Summary (Last 24 hours) at 11/19/2024 1223 Last data filed at 11/19/2024 0800 Gross per 24 hour Intake 630 ml Output 225 ml Net 405 ml Physical Exam Constitutional - ill appearing. Head - normocephalic and atraumatic. Eyes - extraocular movements intact. Nose - appears normal. Oral - moist mucous membranes. Cardiovascular - normal rate and regular rhythm. normal heart sounds. Pulmonary - breath sounds present bilaterally. no wheezing and no crackles. Abdominal - soft. Epigastric tenderness Musculoskeletal - RLE edema present and LLE edema present. Skin - warm. Neurological - alert and oriented x 4. Scheduled medications 11/19/24 12:23 PM As needed medications: amLODIPine, 10 mg, Oral, Daily atorvastatin, 40 mg, Oral, Daily enoxaparin (LOVENOX) injection for prophylaxis, 40 mg, Subcutaneous, Q24H ALYSSA fenofibrate, 145 mg, Oral, Daily hydrALAZINE, 50 mg, Oral, TID insulin glargine, 15 Units, Subcutaneous, BID isosorbide mononitrate, 30 mg, Oral, Daily metoPROLOL TARTRATE, 100 mg, Oral, Q12H ALYSSA PANTOprazole, 40 mg, Oral, Daily bisacodyl glucose OR glucose OR dextrose OR dextrose OR glucagon dextrose HYDROmorphone naloxone ondansetron Current infusions: dextrose 5% in lactated ringers, 75 mL/hr, Last Rate: 75 mL/hr (11/19/24 0839) Diagnostic studies: I have reviewed the labs and ordered new labs if needed. Recent Labs 11/17/24202411/18/24 0605 WBC 9.9 11.2* HGB 13.0 12.6 HCT 40.5 37.6 PLT 221 245 Recent Labs 11/17/24202411/18/24 0410 11/18/24 0605 11/19/24 0940 NA 138 -- 133* -- K 3.3* 3.6 3.3* 4.9 CO2 22 -- 24 -- CL 103 -- 101 -- BUN 12 -- 7* -- CREAT 0.6 -- 0.6 -- CALCIUM 8.9 -- 8.6* -- MG 1.8 -- 1.7 -- PHOS 2.2* -- 2.1* 3.3 BILITOT -- -- 0.4 -- ALKPHOS -- -- 78 -- AST -- -- 22 -- ALT -- -- 13 -- ALBUMIN -- -- 3.4 -- No results for input(s): PT , PTT , INR in the last 72 hours. No results for input(s): SARSCOV2 , INFLAV , INFLBV in the last 72 hours. Blood Culture Results Since Admission No results found for this visit on 11/17/24. Urine Culture Results Since Admission No results found for this visit on 11/17/24. Cathy Koenig DO * Lisseth Kumar MD - 11/18/2024 1:25 PM EDT ICU Progress Note Subjective Acute events reported from overnight. Abdominal pain is better. Tolerating p.o. diet. Objective Last Vitals: Pulse:72, Resp:17, BP:BP Min: 160/67 Max: 203/65 MAP: SpO2:95 % CVP: Temp Last 24 hrs: Temp Min: 97.1 ??F (36.2 ??C) Max: 98.8 ??F (37.1 ??C) Intake & Output: Intake/Output Summary (Last 24 hours) at 11/18/2024 1326 Last data filed at 11/18/2024 1000 Gross per 24 hour Intake 4620.2 ml Output 1850 ml Net 2770.2 ml Intake/Output last 3 shifts: I/O last 3 completed shifts: In: 3419.6 [I.V.:2769.6; IV Piggyback:650] Out: 1850 [Urine:1850] Physical Exam: Constitutional: no apparent distress Eyes: No scleral icterus ENT: oral mucosa moist Neck: No JVD Lymphatic: No cervical lymphadenopathy palpated Respiratory: Bilateral air entry, coarse breath sounds, bibasilar crackles heard cardiovascular: RRR, no murmurs, rubs or gallops on my exam GI: Mild tenderness in the epigastric region, bowel sounds positive Extremities: 2+ peripheral edema, no clubbing or cyanosis noted Skin: no new rashes identified Neurological: Wakes up and follows commands, moves all four extremities, no focal deficits noted Psych: Appropriate mood and affect Current Medications: Current Facility-Administered Medications Medication Dose Route Frequency Provider Last Rate Last Admin amLODIPine (NORVASC) tablet 10 mg 10 mg Oral Daily Dipti Tan APRN 10 mg at 11/18/24829 atorvastatin (LIPITOR) tablet 40 mg 40 mg Oral Daily Dipti Tan APRN 40 mg at 11/18/24 0830 bisacodyl (DULCOLAX) suppository 10 mg 10 mg Rectal Daily PRN Sandra Knight APRN glucose (GLUTOSE 15) 40 % oral gel 37.5 g 1 Tube Oral Q15 Min PRN Sandra Knight APRN Or glucose (GLUTOSE 15) 40 % oral gel 75 g 2 Tube Oral Q15 Min PRN Sandra Knight APRN Or dextrose 50 % solution 12.5 g 12.5 g Intravenous Q15 Min PRN Sandra Knight APRN Or dextrose 50 % solution 25 g 25 g Intravenous Q15 Min PRN Sandra Knight APRN 25 g at 11/17/241939 Or glucagon (GLUCAGEN) injection 1 mg 1 mg Intramuscular Daily PRN Sandra Knight APRN dextrose 50 % solution 25 g 25 g Intravenous Once PRN Sandra Knight APRN enoxaparin (LOVENOX) syringe 40 mg 40 mg Subcutaneous Q24H [facility] Sandra Knight APRN 40 mg at 829 fenofibrate (TRICOR) tablet 145 mg 145 mg Oral Daily Dipti Tan APRN 145 mg at 11/18/24 0842 hydrALAZINE (APRESOLINE) tablet 50 mg 50 mg Oral TID Dipti Tan APRN 50 mg at 11/18/2430 HYDROmorphone (DILAUDID) injection 0.5 mg 0.5 mg Intravenous Q3H PRN Sandra Knight MASTER BAKER 0.5 mg at 11/18/24 1046 insulin glargine (LANtus/SEMGLEE) 100 units/mL injection 40 Units 40 Units Subcutaneous BID MD Shamar 40 Units at 11/18/24 1133 isosorbide mononitrate (IMDUR) 24 hr tablet 30 mg 30 mg Oral Daily Dipti Tan APRN 30 mg at 11/18/24 0831 metoPROLOL TARTRATE (LOPRESSOR) tablet 100 mg 100 mg Oral Q12H ALYSSA Dipti Tan, MASTER BAKER 100 mg at 11/18/24 0830 naloxone (NARCAN) 0.4 mg/mL injection 0.4 mg 0.4 mg Intravenous Q5 Min PRN Sandra Knight APRN ondansetron (ZOFRAN) injection 4 mg 4 mg Intravenous Q6H PRN Sandra Knight MASTER BAKER 4 mg at 11/18/24 1050 Relevant data reviewed: Complete Blood Count Recent Labs 11/17/24202411/18/24 0605 WBC 9.9 11.2* HGB 13.0 12.6 HCT 40.5 37.6 PLT 221 245 Electrolytes and Lactate Recent Labs 11/17/24202411/18/24 0410 11/18/24 0605 NA 138 -- 133* K 3.3* 3.6 3.3* CL 103 -- 101 CO2 22 -- 24 ANIONGAP 13 -- 8 BUN 12 -- 7* CREAT 0.6 -- 0.6 CALCIUM 8.9 -- 8.6* Hepatic Testing Recent Labs 11/18/24 0605 AST 22 ALT 13 ALKPHOS 78 BILITOT 0.4 ALBUMIN 3.4 PROT 6.2* Coagulation Studies No results for input(s): PTT , LABPROT , INR in the last 72 hours. ABG Trends No results for input(s): PHA , PCO2 , PO2 , HCO3 in the last 72 hours. Assessment & Plan The patient remains critically ill/injured and/or remains at high risk for life threatening complications due to beow Principal Problem: Severe acute pancreatitis (POA: Yes) Active Problems: Asthma (POA: Unknown) Mcdermott's esophagus (POA: Unknown) Coronary artery disease (POA: Unknown) Diabetes mellitus (HCC) (POA: Unknown) Hyperlipidemia (POA: Unknown) Hypertension (POA: Unknown) Pancreatic divisum (POA: Not Applicable) Recurrent acute pancreatitis (POA: Unknown) Resolved Problems: Length of hospitalization: 1 days * No surgery found * Plan: Neuro: CAM: CAM-ICU Delirium Present: Negative [place] Agitation Sedation Scale (RASS) / Modified RASS: -1-->Wakes easily, drowsy Patient is alert and oriented x's 4 -my resume home oxycodone, gabapentin in AM Respiratory: Hx of Asthma -continuous pulse oximetry - duonebs PRN CV: Hx of HTN/HLD, hypertriglyceridemia, CAD Hypertensive -holding home imdur, metoprolol, amlodipine, atorvastatin, enalapril, fenofibrate, hydralazine - resume fenfibrate and other cardiovascular meds -has responded to IV labetalol GI: Hx of GERD, recurrent acute pancreatitis, pancreatic divisum Strict NPO -start PPI -DC insulin -trend TG Q8H - consult GI Renal: Hypomagnesemia, Hypokalemia, hypophosphatemia -trend and replace as needed -strict I and O monitoring Endocrine: Hx of IDDM type 2 -FS Q1H -on insulin infusion Hematologic: -ppx with enoxaparin, SCDs ID: No active issues Code Status: Full code Contact: Extended Emergency Contact Information Primary Emergency Contact: ANSELMO SOLIMAN Mobile Relation: Spouse Preferred language: [place] Roofer Assistant needed? No I provided 52 minutes of Critical Care time evaluating, providing care and managing this criticallyill/injured patient. Critical care time was spent, but not limited to, the review of laboratory test results, medications, relevant radiology and discussing this critically ill patient's care with other medical staff in the unit or at the nursing station on the floor where the patient is located. My full attention was given to the management of this patient and I was immediately available during this same time. This time did not include any separate billable procedures. documented in this encounter H&P Notes * Sandra Knight APRN - 11/17/2024 11:47 PM EDT [facility] CRITICAL CARE ADMISSION HISTORY & PHYSICAL Name: Felecia Soliman Date of : 1955 PCP: No primary care provider on file. Arrival date: 11/17/2024 7:32 PM Source of information: Patient, Transfer Paperwork CHIEF COMPLAINT: Abdominal Pain HPI: This is a 69 y.o. female with a PMH of asthma, mcdermott's esophagus, endometrial/cervical cancer, CAD, IDDM type 2, HTN/HLD, embolism and pancreatic divisum and recurrent acute pancreatitis who presented to OSH with 2 days of progressively worsening abdominal pain. Lab work showed an elevated lipaseof 1428 with triglycerides of 952. CT of the abdomen showed peripancreatic edema pattern. Other significant lab work includes WBC 11.6, glucose 414, mg 1.5. She was started on an insulin infusion foracute pancreatitis in the setting of hypertriglyceridemia. The patient was transferred to [facility] for ICU bed availability. Her labs were checked on arrival at [facility] which showed mag 1.8, K 3.3 and phos of 2.2. She was given replacement of all three. Her initial FS was low in the 30s and she was switched from D5W to D10 with FS ranging between 115-171. TGs are trending down with the most recent 534. Due to the need for an insulin infusion the patient was admitted to the ICU. This case was discussed with on-call ICU physician, Dr. Kumar. REVIEW OF SYSTEMS: Review of Systems Constitutional: Positive for appetite change (decreased). Negative for chills, fatigue and fever. HENT: Negative. Negative for congestion, postnasal drip and rhinorrhea. Eyes: Negative. Negative for redness. Respiratory: Negative. Negative for cough, chest tightness, shortness of breath and wheezing. Cardiovascular: Negative. Negative for chest pain, palpitations and leg swelling. Gastrointestinal: Positive for abdominal pain. Negative for abdominal distention, blood in stool, diarrhea, nausea and vomiting. Endocrine: Negative. Negative for cold intolerance, polydipsia and polyuria. Genitourinary: Negative. Negative for difficulty urinating, dysuria, flank pain, hematuria and urgency. Musculoskeletal: Negative. Negative for arthralgias. Skin: Negative. Negative for color change and rash. Allergic/Immunologic: Negative. Neurological: Negative. Negative for dizziness, speech difficulty, weakness, light-headedness and headaches. Hematological: Negative. Psychiatric/Behavioral: Negative. Negative for decreased concentration and sleep disturbance. The patient is not nervous/anxious. PAST MEDICAL HISTORY: Past Medical History: Diagnosis Date Asthma Mcdermott's esophagus Cancer (HCC) endometrial Cervical cancer (HCC) Coronary artery disease Diabetes mellitus (HCC) IDDM Embolism (HCC) Hyperlipidemia hypertriglyceridemia Hypertension Pancreatic divisum Recurrent acute pancreatitis I independently reviewed the past medical history PAST SURGICAL HISTORY: Past Surgical History: Procedure Laterality Date CHOLECYSTECTOMY HERNIA REPAIR HYSTERECTOMY I independently reviewed the past surgical history SOCIAL HISTORY: Social History Tobacco Use Smoking status: Former Types: Cigarettes Smokeless tobacco: Never Vaping Use Vaping status: Never Used Substance Use Topics Alcohol use: Never Drug use: Never I independently reviewed the past social history FAMILY HISTORY: Family History Problem Relation Age of Onset Diabetes Mother Diabetes Father I independently reviewed the past family history ALLERGIES: Allergies Allergen Reactions Gentamicin Respiratory distress Iodinated Contrast Media Respiratory distress Latex Anaphylaxis Morphine Anaphylaxis Penicillins Respiratory distress Shellfish-Derived Products Respiratory distress Vancomycin Respiratory distress Azithromycin Unknown/Patient and Family Unable to Define Erythromycin Base Coated [Erythromycin] Unknown/Patient and Family Unable to Define Esomeprazole Unknown/Patient and Family Unable to Define Pantoprazole GI Intolerance/Nausea/Vomiting I independently reviewed the allergies MEDS: Current Facility-Administered Medications Medication Dose Route Frequency Provider Last Rate Last Admin [Provider Held] amLODIPine (NORVASC) tablet 10 mg 10 mg Oral Daily Sandra Knight APRN [Provider Held] atorvastatin (LIPITOR) tablet 40 mg 40 mg Oral Daily Sandra Knight APRN bisacodyl (DULCOLAX) suppository 10 mg 10 mg Rectal Daily PRN Sandra Knight APRN dextrose 10% (D10W) infusion 250 mL/hr Intravenous Continuous Sandra Knight APRN 250 mL/hr at 11/18/24 0426 250 mL/hr at 11/18/24 0426 glucose (GLUTOSE 15) 40 % oral gel 37.5 g 1 Tube Oral Q15 Min PRN Sandra Knight APRN Or glucose (GLUTOSE 15) 40 % oral gel 75 g 2 Tube Oral Q15 Min PRN Sandra Knight APRN Or dextrose 50 % solution 12.5 g 12.5 g Intravenous Q15 Min PRN Sandra Knight APRN Or dextrose 50 % solution 25 g 25 g Intravenous Q15 Min PRN Sandra Knight APRN 25 g at 11/17/24 1940 Or glucagon (GLUCAGEN) injection 1 mg 1 mg Intramuscular Daily PRN Sandra Knight APRN dextrose 50 % solution 25 g 25 g Intravenous Once PRN Sandra Knight APRN enoxaparin (LOVENOX) syringe 40 mg 40 mg Subcutaneous Q24H [facility] Sandra Knight APRN [Provider Held] fenofibrate (TRICOR) tablet 145 mg 145 mg Oral Daily Sandra Knight APRN hydrALAZINE (APRESOLINE) injection 10 mg 10 mg Intravenous Once Sandra Knight APRN [Provider Held] hydrALAZINE (APRESOLINE) tablet 50 mg 50 mg Oral TID Sandra Knight APRN HYDROmorphone (DILAUDID) injection 0.5 mg 0.5 mg Intravenous Q3H PRN Sandra Knight APRN 0.5 mg at 11/17/24 2030 insulin regular (HumuLIN-R) IV infusion 100 units in 100 mL NS STOCK 0.1 Units/kg/hr Intravenous Continuous Sandra Knight APRN 10.2 mL/hr at 11/18/24 0425 0.1 Units/kg/hr at 11/18/24 0425 [Provider Held] isosorbide mononitrate (IMDUR) 24 hr tablet 30 mg 30 mg Oral Daily Sandra Knight APRN [Provider Held] metoPROLOL TARTRATE (LOPRESSOR) tablet 100 mg 100 mg Oral Q12H [facility] Sandra Knight APRN naloxone (NARCAN) 0.4 mg/mL injection 0.4 mg 0.4 mg Intravenous Q5 Min PRN Sandra Knight APRN ondansetron (ZOFRAN) injection 4 mg 4 mg Intravenous Q6H PRN Sandra Knight APRN 4 mg at 11/17/24 2307 PHYSICAL EXAMINATION: T Min/Max Past 24 hrs: Temp Min: 97.1 ??F (36.2 ??C) Max: 97.9 ??F (36.6 ??C) Patient Vitals for the past 8 hrs: BP Temp Temp src Pulse Resp SpO2 11/18/24 0400 (!) 177/146 97.9 ??F (36.6 ??C) Tympanic (!) 102 19 99 % 11/18/24 0200 (!) 203/76 -- -- 89 16 98 % 11/18/24 0100 (!) 185/70 -- -- 96 15 100 % 11/18/24 0000 (!) 178/64 97.1 ??F (36.2 ??C) Tympanic 80 14 96 % 11/17/24 2300 (!) 176/54 -- -- 92 19 98 % 11/17/24 2202 (!) 189/78 -- -- -- -- -- Intake/Output Summary (Last 24 hours) at 11/18/2024 0533 Last data filed at 11/18/2024 0426 Gross per 24 hour Intake 2639 ml Output 1550 ml Net 1089 ml Physical Exam Vitals and nursing note reviewed. Constitutional: Appearance: She is well-developed. She is ill-appearing. HENT: Head: Normocephalic and atraumatic. Right Ear: Hearing and external ear normal. Left Ear: Hearing and external ear normal. Nose: Nose normal. Mouth/Throat: Lips: [place]. Mouth: Mucous membranes are dry. Pharynx: Oropharynx is clear. Uvula midline. Eyes: General: Lids are normal. Gaze aligned appropriately. No scleral icterus. Extraocular Movements: Extraocular movements intact. Conjunctiva/sclera: Conjunctivae normal. Pupils: Pupils are equal, round, and reactive to light. Neck: Trachea: Trachea and phonation normal. Cardiovascular: Rate and Rhythm: Normal rate and regular rhythm. Pulses: Normal pulses. Heart sounds: Normal heart sounds, S1 normal and S2 normal. No murmur heard. No friction rub. No gallop. Pulmonary: Effort: Pulmonary effort is normal. No respiratory distress. Breath sounds: Normal breath sounds. No wheezing or rales. Abdominal: General: Abdomen is flat. Bowel sounds are normal. Palpations: Abdomen is soft. Tenderness: There is generalized abdominal tenderness and tenderness in the epigastric area. There is no guarding or rebound. Musculoskeletal: General: No tenderness. Normal range of motion. Cervical back: Normal range of motion. Right lower leg: No edema. Left lower leg: No edema. Lymphadenopathy: Cervical: No cervical adenopathy. Skin: General: Skin is warm and dry. Capillary Refill: Capillary refill takes less than 2 seconds. Findings: No erythema. Neurological: General: No focal deficit present. Mental Status: She is alert and oriented to person, place, and time. GCS: GCS eye subscore is 4. GCS verbal subscore is 5. GCS motor subscore is 6. Cranial Nerves: Cranial nerves 2-12 are intact. Psychiatric: Attention and Perception: Attention and perception normal. Mood and Affect: Affect normal. Speech: Speech normal. Behavior: Behavior normal. Behavior is cooperative. Thought Content: Thought content normal. Cognition and Memory: Cognition and memory normal. Judgment: Judgment normal. DIAGNOSTIC STUDIES: Lab Studies: Lab Results Component Value Date GLUC 148 (H) 11/18/2024 CALCIUM 8.9 11/17/2024 NA 138 11/17/2024 K 3.6 11/18/2024 CO2 22 11/17/2024 CL 103 11/17/2024 BUN 12 11/17/2024 CREAT 0.6 11/17/2024 No results found for: CKTOTAL , CKMB , CKMBINDEX Results from last 7 days Lab Units 11/17/242024 MAGNESIUM mg/dL 1.8 Lab Results Component Value Date CALCIUM 8.9 11/17/2024 PHOS 2.2 (L) 11/17/2024 Results from last 7 days Lab Units 11/17/242024 WHITE BLOOD CELL COUNT Thou/uL 9.9 HEMOGLOBIN g/dL 13.0 HEMATOCRIT % 40.5 PLATELET COUNT Thou/uL 221 No results found for: ALT , AST , GGT , ALKPHOS , BILITOT No results found for: PROBNP Invalid input(s): WBC UA , RBC UA Radiologic Studies: CT Abdomen and Pelvis ASSESSMENT/PLAN: Principal Problem: Severe acute pancreatitis (POA: Yes) Active Problems: Asthma (POA: Unknown) Mcdermott's esophagus (POA: Unknown) Coronary artery disease (POA: Unknown) Diabetes mellitus (HCC) (POA: Unknown) Hyperlipidemia (POA: Unknown) Hypertension (POA: Unknown) Pancreatic divisum (POA: Not Applicable) Recurrent acute pancreatitis (POA: Unknown) Resolved Problems: Problem List PLAN Neuro: Patient is alert and oriented x's 4 -holding home oxycodone, gabapentin Respiratory: Hx of Asthma -continuous pulse oximetry CV: Hx of HTN/HLD, hypertriglyceridemia, CAD Hypertensive -holding home imdur, metoprolol, amlodipine, atorvastatin, enalapril, fenofibrate, hydralazine while NPO -has responded to IV labetalol GI: Hx of GERD, recurrent acute pancreatitis, pancreatic divisum Strict NPO -holding home lansoprazole -on insulin infusion -trend TG Q8H Renal: Hypomagnesemia, Hypokalemia, hypophosphatemia -trend and replace as needed -strict I and O monitoring -patient refusing purewick Endocrine: Hx of IDDM type 2 -FS Q1H -on insulin infusion Hematologic: -ppx with enoxaparin, SCDs ID: No active issues LDAs: PIVs VTE Time Out IMPROVE SCORE: 2 (11/17/2024 7:45 PM) Interpretation - High Risk Chemical Prophylaxis enoxaparin (LOVENOX) syringe 40 mg Subcutaneous Every 24 hours scheduled Mechanical Prophylaxis SCDs are ordered - Bilateral (Knee High) Code Status: Full Code Tele Criteria: IV MEDICATIONS THAT REQUIRE CARDIAC MONITORING, CONTINUOUS PULSE OXIMETRY BUSINESS SYSTEMS ARCHITECT: No emergency contact information on file. I provided 71 minutes of Critical Care time spent evaluating, determining plan of care and managingthis critically ill/injured patient. Sandra Knight APRN 11/18/2024 5:33 AM documented in this encounter Consult Notes * RODNEY Ye - 11/18/2024 2:00 PM EDTAssociated Order(s): IP CONSULT TO GASTROENTEROLOGY Gastroenterology Consult Note Date of Consult: 11/18/2024 Patient's Primary Care Physician: No Pcp Physician Requesting Consult: Dipti Tan APRN Reason for Consultation: Pancreatitis Name: Felecia Soliman Age: 69 y.o. Sex: female Principal Problem: Severe acute pancreatitis (POA: Yes) Active Problems: Asthma (POA: Unknown) Mcdermott's esophagus (POA: Unknown) Coronary artery disease (POA: Unknown) Diabetes mellitus (HCC) (POA: Unknown) Hyperlipidemia (POA: Unknown) Hypertension (POA: Unknown) Pancreatic divisum (POA: Not Applicable) Recurrent acute pancreatitis (POA: Unknown) Resolved Problems: Assessment & Plan Assessment This is a 69-year-old female with below past medical history presenting with acute onset upper abdominal pain that began 2 days ago and was found to have acute recurrent pancreatitis at an outside hospital with significantly elevated triglycerides close to 1000 who was transferred to [facility] for ICU bed availability and insulin drip. Currently triglycerides have dropped below 500 and her abdominal pain is starting to improve. Pancreatitis likely secondary to high triglycerides. No history of alcohol use. Full CT scan report is not available however she does not have elevated LFTs to indicate gallstone pancreatitis. Plan #Acute, recurrent pancreatitis 2\2 hypertriglyceridemia #Hypertriglyceridemia #Pancreatic divisum -Emanuel score of 2 with a 1% predicted mortality. -Patient is approximately 3 L positive in fluid balance. Okay to decrease IV fluid hydration - Okay to continue the insulin drip and continue to monitor triglycerides off drip. - Okay to start a clear liquid diet and advance as tolerated to a low-fat diet - Continue fenofibrate. -She may benefit from referral to a lipid specialist as she has had recurrent episodes of pancreatitis secondary to hypertriglyceridemia - She does have a home wet finisher wool to follow-up with - Pain and nausea management as per primary team - Further supportive care as per ICU team - No need to repeat abdominal imaging at this time. Can consider repeat imaging in several days if patient has worsening of symptoms or no significant improvement. The patient case/plan to be reviewed with attending physician, Dr. Mcdowell. During the day of the visit, > 60 minutes time was spent including the following: Examining the patient Chart review in preparation for the visit Documenting in the patient record Speaking with a retirement consultant Reviewing Labs & Radiology Medication Reconciliation Subjective Chief Complaint Abdominal pain History of Present Illness Patient is a 69-year-old female, followed by gastroenterology near her home in [facility], with past medical history significant for asthma, Mcdermott's esophagus, endometrial/cervical cancer, CAD, dependent type 2 diabetes, hypertension, hyperlipidemia, history of pancreatitis secondary to high triglycerides and history of pancreatic divisum who initially presented to an outside hospital with 2 days of worsening upper abdominal pain. At presentation lab evaluation showed lipase of 1428 with triglycerides of 952. CT abdomen and pelvis showed peripancreatic edema. WBC was 11.6, glucose 414. Patient was then transferred to [facility] for ICU bed availability on an insulin drip. She has received aggressive IV fluid hydration with D5 5W and D10 in addition to insulin drip with most recent triglycerides's morning of 457. Lipase has trended down to 63. She remains afebrile. Sheis hypertensive. She is tolerating a clear liquid diet. Overall her abdominal pain has improved. She does feel some abdominal distention as well as puffiness in her arms and legs and slight shortnessof breath. She states that she has had several episodes of prior pancreatitis attributed to hypertriglyceridemia. In the past both her triglycerides and lipase have been more significantly elevated. She was evaluated by outpatient [facility] where they noted the pancreatic divisum but she cannot recall any other abnormalities. She denies alcohol use. No history of gallstone pancreatitis. Denies any new medications or supplements. Currently she is feeling spacy from the pain medication. Review of Systems CONSTITUTIONAL: Denies fevers, chills, night sweats, + decreased appetite ENT : Denies dry mouth, congestion, difficulty swallowing RESP : + shortness of breath, Denies cough CARDIAC : Denies chest pain, palpitations, lower ext. Edema GI : + abdominal pain, Denies nausea, vomiting, hematemesis, hematochezia, melena, diarrhea, constipation. : Denies urinary symptoms SKIN : denies rash, pruritis MS : Denies myalgias, arthralgias, back pain NEURO : Denies dizziness, headache. Objective Past Medical History: Past Surgical History: Past Medical History: Diagnosis Date Asthma Mcdermott's esophagus Cancer (HCC) endometrial Cervical cancer (HCC) Coronary artery disease Diabetes mellitus (HCC) IDDM Embolism (HCC) Hyperlipidemia hypertriglyceridemia Hypertension Pancreatic divisum Recurrent acute pancreatitis Past Surgical History: Procedure Laterality Date CHOLECYSTECTOMY HERNIA REPAIR HYSTERECTOMY Family / Social History: Family History Problem Relation Age of Onset Diabetes Mother Diabetes Father Social History Socioeconomic History Marital status: Spouse name: Not on file Number of children: Not on file Years of education: Not on file Highest education level: Not on file Occupational History Not on file Tobacco Use Smoking status: Former Types: Cigarettes Smokeless tobacco: Never Vaping Use Vaping status: Never Used Substance and Sexual Activity Alcohol use: Never Drug use: Never Sexual activity: Not on file Other Topics Concern Not on file Social History Narrative Not on file Social Determinants of Health Financial Resource Strain: Not on file Food Insecurity: Not on file Transportation Needs: Not on file Physical Activity: Not on file Stress: Not on file Social Connections: Not on file Housing Stability: Not on file Allergies: Allergies Allergen Reactions Gentamicin Respiratory distress Iodinated Contrast Media Respiratory distress Latex Anaphylaxis Morphine Anaphylaxis Penicillins Respiratory distress Shellfish-Derived Products Respiratory distress Vancomycin Respiratory distress Azithromycin Unknown/Patient and Family Unable to Define Erythromycin Base Coated [Erythromycin] Unknown/Patient and Family Unable to Define Esomeprazole Unknown/Patient and Family Unable to Define Pantoprazole GI Intolerance/Nausea/Vomiting Scheduled Medications: amLODIPine, 10 mg, Oral, Daily atorvastatin, 40 mg, Oral, Daily enoxaparin (LOVENOX) injection for prophylaxis, 40 mg, Subcutaneous, Q24H ALYSSA fenofibrate, 145 mg, Oral, Daily hydrALAZINE, 50 mg, Oral, TID insulin glargine, 40 Units, Subcutaneous, BID isosorbide mononitrate, 30 mg, Oral, Daily metoPROLOL TARTRATE, 100 mg, Oral, Q12H ALYSSA PANTOprazole, 40 mg, Oral, Daily Medications Prior to Admission Medication Sig Dispense Refill Last Dose albuterol (PROVENTIL HFA; VENTOLIN HFA) 108 (90 Base) MCG/ACT inhaler Inhale 2 puffs Every 4 (four)to 6 (six) hours as needed. isosorbide mononitrate (IMDUR) 30 MG 24 hr tablet Take 1 tablet (30 mg total) by mouth daily. Lantus SoloStar 100 UNIT/ML prefilled pen injection Inject 100 Units under the skin 2 (two) times aday. metoPROLOL TARTRATE (LOPRESSOR) 100 MG tablet 1 tablet (100 mg total) by Mouth/Oral Cavity route every 12 hours. albuterol (PROVENTIL) (0.083%) 2.5 mg/3 mL nebulizer solution Take 3 mL (2.5 mg total) by nebulization 4 times daily (every 6 hours) as needed. amLODIPine (NORVASC) 10 MG tablet Take 1 tablet (10 mg total) by mouth daily. atorvastatin (LIPITOR) 40 MG tablet Take 1 tablet (40 mg total) by mouth daily. enalapril (VASOTEC) 20 MG tablet Take 1 tablet (20 mg total) by mouth 2 times a day. fenofibrate (TRICOR) 145 MG tablet Take 1 tablet (145 mg total) by mouth daily. gabapentin (NEURONTIN) 300 MG capsule Take 3 capsules (900 mg total) by mouth nightly. hydrALAZINE (APRESOLINE) 50 MG tablet Take 1 tablet (50 mg total) by mouth 3 (three) times a day. lansoprazole (PREVACID) 30 MG capsule Take 1 capsule (30 mg total) by mouth 2 (two) times a day before meals. oxyCODONE (ROXICODONE) 10 mg immediate release tablet Take 1 tablet (10 mg total) by mouth 3 (three) times a day as needed. Max Daily Amount: 30 mg Physical Exam Vitals: 11/18/24 0700 11/18/24 0800 11/18/24 0900 11/18/24 1000 BP: (!) 166/55 (!) 183/63 (!) 203/65 BP Location: Right arm Patient Position: Lying Pulse: 80 82 89 72 Resp: 16 18 18 17 Temp: 98.8 ??F (37.1 ??C) TempSrc: Tympanic SpO2: 96% 95% Weight: Height: Intake/Output Summary (Last 24 hours) at 11/18/2024 1400 Last data filed at 11/18/2024 1230 Gross per 24 hour Intake 4980.2 ml Output 1850 ml Net 3130.2 ml General appearance: 69-year-old female, ill-appearing, no acute distress, awake, alert and cooperative Eyes: conjunctivae/corneas clear. No icterus ENT: Moist mucous membranes Lungs: Crackles at the bases. Heart: regular rate and rhythm, no murmur Abdomen: Soft, tenderness in the epigastric and right upper quadrant with some guarding but no rebound.. Mild distension BS+ Extremities: 2+ bilateral lower extremity edema skin: Skin color, texture, turgor normal. Neurologic: Grossly normal, no asterixis Relevant data reviewed: Results from last 7 days Lab Units 11/18/24 0605 WHITE BLOOD CELL COUNT Thou/uL 11.2* HEMOGLOBIN g/dL 12.6 HEMATOCRIT % 37.6 MCV fL 86 PLATELET COUNT Thou/uL 245 Results from last 7 days Lab Units 11/18/24 0605 11/17/242024 WHITE BLOOD CELL COUNT Thou/uL 11.2* 9.9 HEMOGLOBIN g/dL 12.6 13.0 HEMATOCRIT % 37.6 40.5 PLATELET COUNT Thou/uL 245 221 Results from last 7 days Lab Units 11/18/24 0605 ALT U/L 13 AST U/L 22 ALK PHOS U/L 78 BILIRUBIN TOTAL mg/dL 0.4 Results from last 7 days Lab Units 11/18/24 1154 11/18/24 0700 11/18/24 0605 GLUCOSE mg/dL -- -- 165* GLUCOSE, POC mg/dL 109* < > -- CALCIUM mg/dL -- -- 8.6* SODIUM mmol/L -- -- 133* POTASSIUM mmol/L -- -- 3.3* CO2 mmol/L -- -- 24 CHLORIDE mmol/L -- -- 101 BUN mg/dL -- -- 7* CREATININE mg/dL -- -- 0.6 < > = values in this interval not displayed. Results from last 7 days Lab Units 11/18/24 0410 LIPASE U/L 563* Imaging Studies: No results found. Sign: RODNEY Ye 11/18/2024 2:00 PM Associated attestation - Robert Mcdowell MD - 11/18/2024 5:36 PM EDT Consult Attestation by Attending I agree with HPI, A&P as outlined. I personally obtained and/or verified the pertinent history as well as reviewed all pertinent available data on this patient. I have personally seen and examined patient. I discussed and developed the assessment and plan with my affiliated provider as outlinedbelow. In summary: Felecia Soliman is a 69 y.o. year old female transferred from [facility], not known to ourpractice. Patient has history of pancreatitis and presents with pancreatitis and marked hypertriglyceridemia. Past medical history: Reportedly Mcdermott's esophagus, prior positive pancreatitis also secondary tohigh triglycerides. Pancreas to be some Endometrial or cervical cancer, type II DM, CAD, HTN, HLD. Pertinent findings On examination, include nonfocal abdominal tenderness without mass rebound or rigidity Review on labs and imaging was done and shows approving the laboratories. Relatively low Emanuel's score Impression and Plan: # Acute hypertriglyceridemia or pancreatitis # History of pancreas divisum Current [place] score suggests low severity low predicted mortality however would reevaluate in 24 to 48 hours Will require follow-up from GI and lipid control. Thank you for letting me participate in the care of your patient. If you have any questions or concerns, please don't hesitate to contact me at any time. +Please note this report utilized speech recognition software which may result in typographical errors particularly those of homophone origin. If there are any questions or concerns please contact mefor clarification.+ Robert Mcdowell MD 11/18/2024 4:24 PM documented in this encounter Miscellaneous Notes * Plan of Care - Sharron Nelson RN - 11/24/2024 3:02 PM EDT Plan of Care Reviewed With: patient Outcome Evaluation: alert, oriented x4, c/o abdominal pain 7/10 , oxy ir given this am with affect.MD notified of pain level and b/p. lowfat diet/ccho diet. no c/o nausea or vomiting. patient statesthat she wants to go home regardless of ongoing pain with eating, creon given with meals. Dr Koenig aware of abdominal pain 8/10 after lunch, requesting another dose of pain medication. onetime dose given at this time. patient still states she wants to go home. voiding in BR, BM yesterday. edema wearand farrow wraps in place. cleared for discharge to home without service. Sharron Nelson 11/24/2024 3:02 PM * Plan of Care - Jamila Frances RN - 11/24/2024 1:29 PM EDT Case Management Care Plan Note Final Discharge Plan: 01 - home or self-care Summary: CM met with patient to discuss transition of care needs. Patient is medically cleared for discharge. Patient was independent prior to admission and is transitioning home. Patient does not want any nursing services in the home. All questions were answered. Patient is in agreement with discharge. SW/CM will follow and remain available, if needed. Transportation has been arranged. Patient in agreement with discharge. RN will complete the discharge paperwork. Patient will follow up with MD's asindicated. Rolling walker provided to patient by CM and is at bedside for discharge. Patient/Family in Agreement with Plan: yes (11/24/2024 1:29 PM) Final Discharge Disposition Code: 01 - home or self-care (11/24/2024 1:29 PM) No data recorded * Plan of Care - Nataliia Heredia RN - 11/24/2024 5:14 AM EDT Plan of Care Reviewed With: patient Progress: no change Pt is alert and able to make needs known. PRN dilaudid given x 1. IV ABT maintained. C/o slight tenderness to abd. FSBS AC/HS. Edema wear off. Ax1 w/ care and ADLs. Safety measures in place. Nataliia Heredia 11/24/2024 5:14 AM * Plan of Care - Ronna Lomas RN - 11/23/2024 10:06 PM EDT Progress: no change Outcome Evaluation: AOx4, BP elevated, MD notified. PRN dilaudid and oxycodone for continued abdominal pain. CT completed this shift. Tolerating PO intake, glucose monitored, BM today 11/23. Safety maintained. Ronna Lomas 11/23/2024 10:06 PM * Plan of Care - Alesia Dominguez RN - 11/23/2024 4:19 PM EDT A&ox4. Remains on RA. Abd pain controlled with IV dilaudid x1 and PO oxycodone x1. IV abx per NOV. BG monitored. Lovenox. Safety maintained, call smith within reach. Alesia Faye RN 11/23/2024 4:19 PM * Assessment & Plan Note - Cathy Koenig DO - 11/23/2024 3:31 PM EDTAssociated Problem(s): Severe acute pancreatitis Triglycerides slowly trending down, patient abdominal pain has worsened We will reconsult GI Will obtain CT abdomen and labs including lipase level * Assessment & Plan Note - Cathy Koenig DO - 11/23/2024 3:31 PM EDTAssociated Problem(s): UTI (urinary tract infection) Urine cultures are positive for Klebsiella sensitive to Rocephin * Assessment & Plan Note - Cathy Koenig DO - 11/23/2024 3:31 PM EDTAssociated Problem(s): Asthma Not in exacerbation * Assessment & Plan Note - Cathy Koenig DO - 11/23/2024 3:31 PM EDTAssociated Problem(s): Mcdermott's esophagus Continue PPI * Assessment & Plan Note - Cathy Koenig DO - 11/23/2024 3:31 PM EDTAssociated Problem(s): Coronary artery disease Continue Imdur, Lopressor and statin * Assessment & Plan Note - Cathy Koenig DO - 11/23/2024 3:31 PM EDTAssociated Problem(s): Diabetes mellitus (HCC) Patient will close seems to be increasing today will place her back on Lantus 15 units twice daily * Assessment & Plan Note - Cathy Koenig DO - 11/23/2024 3:31 PM EDTAssociated Problem(s): Hyperlipidemia Continue with home medications * Assessment & Plan Note - Cathy Koenig DO - 11/23/2024 3:31 PM EDTAssociated Problem(s): Hypertension Blood pressure continues to fluctuate Continue with all of her home antihypertensive medications * Assessment & Plan Note - Cathy Koenig DO - 11/23/2024 3:31 PM EDTAssociated Problem(s): Pancreatic divisum See above * Assessment & Plan Note - Cathy Koenig DO - 11/23/2024 3:31 PM EDTAssociated Problem(s): Swelling of right upper extremity Continue with compression Results negative for DVT * Assessment & Plan Note - Cathy Koenig DO - 11/23/2024 3:31 PM EDTAssociated Problem(s): Electrolyte abnormality Resolved * Assessment & Plan Note - Cathy Koenig DO - 11/23/2024 3:31 PM EDTAssociated Problem(s): Diarrhea Likely due to pancreatitis Will start Creon and monitor for worsening abdominal symptoms * Plan of Care - Jamila Frances RN - 11/23/2024 3:25 PM EDT Met with patient this afternoon. Patient not indicated as a discharge. Patient is from [facility] and plans to return home. Patient is declining need for homecare services on discharge although may need a RW prior to discharge. will transport home at time of discharge. Patient will need to get set up with PCP in [facility]. Plan of care/Discharge planning is ongoing. * Plan of Care - Leann Alfredo RN - 11/23/2024 4:50 AM EDT Plan of Care Reviewed With: patient Progress: no change Outcome Evaluation: A&O, VSS. Oxy and dilaudid given for abd pain and AMOS with good effect. Tolerating diet, monitoring bedside glucose. Safety Maintained. Leann Alfredo 11/23/2024 4:50 AM * Plan of Care - Melodie Crowell RN - 11/22/2024 4:13 PM EDT Pt alert and oriented, ad fracisco in room, IV abx for UTI, tolerating diet, PRN oxy per mar, VSS, minimal complaints of pain, safety maintained Melodie Crowell 11/22/2024 4:13 PM * Assessment & Plan Note - Cathy Koenig DO - 11/22/2024 11:29 AM EDTAssociated Problem(s): Severe acute pancreatitis Slowly improving, triglyceride level continues to trend down GI team has been initially following and recommended outpatient follow-up with GI and likely referral for lipid specialist from her GI Continue statin, fenofibrate Pain meds as needed, low-fat diet * Assessment & Plan Note - Cathy Koenig DO - 11/22/2024 11:29 AM EDTAssociated Problem(s): Asthma Not in exacerbation * Assessment & Plan Note - Cathy Koenig DO - 11/22/2024 11:29 AM EDTAssociated Problem(s): Mcdermott's esophagus Continue PPI * Assessment & Plan Note - Cathy Koenig DO - 11/22/2024 11:29 AM EDTAssociated Problem(s): Coronary artery disease Continue Imdur, Lopressor, statin * Assessment & Plan Note - Cathy Koenig DO - 11/22/2024 11:29 AM EDTAssociated Problem(s): Diabetes mellitus (HCC) Patient's fingersticks have been fluctuating, this a.m. 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 for outpatient management * Assessment & Plan Note - Cathy Koenig DO - 11/22/2024 11:29 AM EDTAssociated Problem(s): Hyperlipidemia Continue with home medications as listed above * Assessment & Plan Note - Cathy Koenig DO - 11/22/2024 11:29 AM EDTAssociated Problem(s): Hypertension Continue with all of her antihypertensive medications * Assessment & Plan Note - Cathy Koenig DO - 11/22/2024 11:29 AM EDTAssociated Problem(s): Pancreatic divisum See above * Assessment & Plan Note - Cathy Koenig DO - 11/22/2024 11:29 AM EDTAssociated Problem(s): Swelling of right upper extremity Swelling is slowly improving Ultrasound was negative for DVT * Assessment & Plan Note - Cathy Keonig DO - 11/22/2024 11:29 AM EDTAssociated Problem(s): Electrolyte abnormality Resolved * Assessment & Plan Note - Cathy Koenig DO - 11/22/2024 11:29 AM EDTAssociated Problem(s): Diarrhea C. difficile/GI PCR negative Will DC precautions * Assessment & Plan Note - Cathy Koenig DO - 11/22/2024 11:29 AM EDTAssociated Problem(s): UTI (urinary tract infection) Patient been having dysuria and suprapubic pain Urinalysis consistent with UTI Urine cultures are pending Will continue Rocephin * Plan of Care - Kathleen Santos RN - 11/22/2024 2:11 AM EDT Plan of Care Reviewed With: patient Outcome Evaluation: Alert and oriented, VSS, on room air. C/o servere abdominal pain, PRN oxycodoneand dilaudid given with good effect. IV abx on board. Tolerating diet, FS monitored. SBA to bathroom, pills whole, safety maintained. Kathleen Santos 11/22/2024 2:11 AM * Plan of Care - Melodie Crowell RN - 11/21/2024 4:25 PM EDT Pt alert and oriented, ad fracisco in room, pt was complaining of painful urination, UTI +, IV abx on board, FS, PRN oxy per nov, resting comfortably, VSS, safety maintained Melodie Crowell 11/21/2024 4:25 PM * Assessment & Plan Note - Cathy Koenig DO - 11/21/2024 1:56 PM EDTAssociated Problem(s): Severe acute pancreatitis Symptoms are slowly improving, she continues to have ongoing postprandial pain GI team has been following recommend outpatient follow-up with GI and likely lipid specialist Continue with home oral pain meds and breakthrough IV pain meds as needed Continue with statin and fenofibrate * Assessment & Plan Note - Cathy Koenig DO - 11/21/2024 1:56 PM EDTAssociated Problem(s): Asthma Not in exacerbation * Assessment & Plan Note - Cathy Koenig DO - 11/21/2024 1:56 PM EDTAssociated Problem(s): Mcdermott's esophagus Continue PPI * Assessment & Plan Note - Cathy Koenig DO - 11/21/2024 1:56 PM EDTAssociated Problem(s): Coronary artery disease Continue statin, Imdur, Lopressor * Assessment & Plan Note - Cathy Koenig DO - 11/21/2024 1:56 PM EDTAssociated Problem(s): Diabetes mellitus (HCC) Fingersticks have mainly been in the 100s Continue with Lantus 15 units twice daily, along with SSI Diabetic diet * Assessment & Plan Note - Cathy Koenig DO - 11/21/2024 1:56 PM EDTAssociated Problem(s): Hyperlipidemia Continue with home medications * Assessment & Plan Note - Cathy Koenig DO - 11/21/2024 1:56 PM EDTAssociated Problem(s): Hypertension Continue with home medication * Assessment & Plan Note - Cathy Koenig DO - 11/21/2024 1:56 PM EDTAssociated Problem(s): Pancreatic divisum See above * Assessment & Plan Note - Cathy Koenig DO - 11/21/2024 1:56 PM EDTAssociated Problem(s): Swelling of right upper extremity Ultrasounds negative for DVT * Assessment & Plan Note - Cathy Koenig DO - 11/21/2024 1:56 PM EDTAssociated Problem(s): Electrolyte abnormality Resolved * Assessment & Plan Note - Cathy Koenig DO - 11/21/2024 1:56 PM EDTAssociated Problem(s): Diarrhea C. difficile, GI PCR negative Patient has previously tried pancrelipase but had pancreatitis * Plan of Care - Kathleen Santos RN - 11/21/2024 4:52 AM EDT Plan of Care Reviewed With: patient Outcome Evaluation: Alert and oriented, VSS, on room air. C/o abdominal pain, PRN morphine with good effect. Cont IVF infusing. Tolerating full liquid diet, FS monitored. BLE edema, edema wear removed at hs. Assist x1 to bathroom. Pills whole, safety maintained. Kathleen Santos 11/21/2024 4:52 AM * Plan of Care - Jolene Guardado RN - 11/20/2024 5:25 PM EDT Patient alert and oriented. Room transfer for r/o cdiff. Enteric precautions maintained. No c/o pain at this time. BS 144. D5LR@75. Safety maintained. Jolene Guardado 11/20/2024 5:25 PM * Plan of Care - Vita Martel RN - 11/20/2024 3:53 PM EDT Vss. A,o. Reports abd pain after eating is sl less. Adv to fld. Edema wear placed. To remove at hs.Oob with assist. No stools this shift. Enteric prec maintained. Vita Martel 11/20/2024 3:53 PM * Assessment & Plan Note - Cathy Koenig DO - 11/20/2024 3:30 PM EDTAssociated Problem(s): Severe acute pancreatitis Slowly improving Continue with IV fluids Pain meds per pain scale Will resume home oral pain meds and continue with IV Dilaudid as needed for breakthrough Continue statin and fenofibrate Patient will need outpatient follow-up with GI * Assessment & Plan Note - Cathy Koenig DO - 11/20/2024 3:30 PM EDTAssociated Problem(s): Asthma Not in exacerbation * Assessment & Plan Note - Cathy Koenig DO - 11/20/2024 3:30 PM EDTAssociated Problem(s): Mcdermott's esophagus Continue PPI * Assessment & Plan Note - Cathy Koenig DO - 11/20/2024 3:30 PM EDTAssociated Problem(s): Coronary artery disease Continue with home medication including statin, Imdur and Lopressor * Assessment & Plan Note - Cathy Koenig DO - 11/20/2024 3:30 PM EDTAssociated Problem(s): Diabetes mellitus (HCC) Continue with lower dose of Lantus 15 units twice daily Once patient's oral intake improves, will increase Lantus dose * Assessment & Plan Note - Cathy Koenig DO - 11/20/2024 3:30 PM EDTAssociated Problem(s): Hyperlipidemia Continue with home medications * Assessment & Plan Note - Cathy Koenig DO - 11/20/2024 3:30 PM EDTAssociated Problem(s): Hypertension Continue Lopressor, Norvasc, hydralazine * Assessment & Plan Note - Cathy Koenig DO - 11/20/2024 3:30 PM EDTAssociated Problem(s): Pancreatic divisum Continue current treatment for acute pancreatitis * Assessment & Plan Note - Cathy Koenig DO - 11/20/2024 3:30 PM EDTAssociated Problem(s): Swelling of right upper extremity Ultrasound is negative for DVT * Assessment & Plan Note - Cathy Koenig DO - 11/20/2024 3:30 PM EDTAssociated Problem(s): Electrolyte abnormality Resolved * Assessment & Plan Note - Cathy Koenig DO - 11/20/2024 3:30 PM EDTAssociated Problem(s): Diarrhea GI PCR, C. difficile testing has been ordered * Plan of Care - Corrine Peres RN - 11/20/2024 1:51 AM EDT A&O x 4. Pleasant and cooperative with care. VSS on RA. Independent in bed, frequent T&P encouraged. OOB to BR or bedside commode, assist x 1. Call smith within reach. Bed alarm on. Pt refusedSCDs on. Safety and fall precautions maintained. * Assessment & Plan Note - Cathy Koenig DO - 11/19/2024 12:31 PM EDTAssociated Problem(s): Severe acute pancreatitis History of pancreatic divisum and recurrent acute pancreatitis Lipase level of 137 today, triglyceride 358, overall downtrending Continue with statin, fenofibrate Continue with gentle IV fluids GI team is following recommendations appreciated She is currently on a clear liquid diet, will slowly advance with improvement in her symptoms * Assessment & Plan Note - Cathy Koenig DO - 11/19/2024 12:31 PM EDTAssociated Problem(s): Asthma Not in exacerbation * Assessment & Plan Note - Cathy Koenig DO - 11/19/2024 12:31 PM EDTAssociated Problem(s): Mcdermott's esophagus Continue PPI * Assessment & Plan Note - Cathy Koenig DO - 11/19/2024 12:31 PM EDTAssociated Problem(s): Coronary artery disease Continue with statin, Imdur, Lopressor * Assessment & Plan Note - Cathy Koenig DO - 11/19/2024 12:31 PM EDTAssociated Problem(s): Diabetes mellitus (HCC) Patient was hypoglycemic this morning She has had minimal oral intake so far Will start IV fluids with D5 and decrease Lantus to 15 units twice daily * Assessment & Plan Note - Cathy Koenig DO - 11/19/2024 12:31 PM EDTAssociated Problem(s): Hyperlipidemia Continue with home medications * Assessment & Plan Note - Cathy Koenig DO - 11/19/2024 12:31 PM EDTAssociated Problem(s): Hypertension Continue with Lopressor, Norvasc, hydralazine * Assessment & Plan Note - Cathy Koenig DO - 11/19/2024 12:31 PM EDTAssociated Problem(s): Pancreatic divisum See above * Assessment & Plan Note - Cathy Koenig DO - 11/19/2024 12:31 PM EDTAssociated Problem(s): Swelling of right upper extremity Will obtain ultrasound * Assessment & Plan Note - Cathy Koenig DO - 11/19/2024 12:31 PM EDTAssociated Problem(s): Electrolyte abnormality Hypokalemia, resolved Hypophosphatemia, resolved * Rehab Therapy Consults - Anival Aguila OT - 11/19/2024 10:26 AM EDT Occupational Therapy Initial Evaluation Assessment Current Diagnosis and PMHx: Felecia Soliman is a 69 y.o. female admitted with severe acute pancreatitis. PMHx Barretts espohagus, DM2, CAD, HTN/HLD. Patient is being seen in ICU for initial OT evaluation. Patient supine in bed agreeable for evaluation. Prior Level of Function: At baseline, patient lives with in a 2 level house, 2-3 KWADWO, patient can stay on one level at home. has a cane that she uses occassionally. [facility] Current Level of Function and Impairments: Order received. Chart reviewed. Patient was Ax1 ADLs/transfers with RW for support 2/2 functional deficits stated above. Patient educated on proper body mechanics as well as hand/foot placement with device in order to increase transfer safety/independence.Patient demonstrated good carryover after therapist education. Patient with slow/methodical movements during session. Patient would benefit from continued OT services in order to increase ADL/transfer performance as well as functional strength/balance/endurance. Safety Measures: Patient was left in bed, call smith in reach, needs addressed, alarm set, and nursing notified. Outcome Measures Activity Measure for Post-Acute Care (AMPAC) is a standardized assessment used to identify functional impairments in mobility and self-care. A higher score indicates higher level of independence for tasks. Baseline AMPA Daily Activity Score: Current AMPA Daily Activity Score: 20 ([facility] Daily Activity Raw Score of 20-22 indicates 20-40% impairment in self care.) Current [facility] Basic Mobility Score: 18 Rehab Plan of Care Patient would benefit from ongoing occupational therapy services at home to address acute impairments following hospital stay. Patient is currently below their prior level of function and demonstrates the potential to achieve goal of maximizing functional ADL and IADL independence with continuationof skilled occupational therapy intervention. 1.) OT Recommendations: encourage ADL independence 2.) OT Frequency in Acute Care Settin-5 times/wk 3.) Plan of Care Reviewed With: evaluation/treatment results reviewed, care plan/treatment goals reviewed, participants voiced agreement with care plan, participants included, patient 4.) Transition Care Planning: Patient's current level of function and post-acute rehab needs discussed with IDT. Precautions: fall Education: Role of OT, POC, and recommendations. Occupational Profile Patient Stated Goal: return home BADL: independent, IADL: independent, Household Mobility: independent Community Mobility: independent Home Environment: ; People in Home: Equipment Currently Used at Home: none Objective Data Cognitive Function: Command following: intact Communication: able to ID wants/needs Orientation: AOx4 Attention: intact Memory / Recall: intact Safety Awareness: intact Executive Function: intact Activities of Daily Living: Feeding: IND Grooming: setup Oral Care: setup Bathing: supervision UB Dressing: supervision LB Dressing: supervision Toileting: supervision Functional Mobility: Bed Mobility: supervision supine/sit Transfers: CGA with RW Functional Ambulation: CGA with RW Vision: intact Hearing: intact Sensation: intact ROM: BUE AROM WFL Strength: BUE strength WFL Coordination: intact bilaterally Balance: static sitting: normal dynamic sitting: good static standing: good dynamic standing: fair Endurance / Activity Tolerance: Patient performed all activity on RA. Vitals: VSS Treatment/OT Intervention: Facilitated participation in ADL and functional mobility as detailed above, with appropriately graded cues and education embedded into task to ensure patient's safe and effective completion of tasks Subjective I'm from [place] Past Medical/Surgery History Past Medical History: Diagnosis Date Asthma Mcdermott's esophagus Cancer (HCC) endometrial Cervical cancer (HCC) Coronary artery disease Diabetes mellitus (HCC) IDDM Embolism (HCC) Hyperlipidemia hypertriglyceridemia Hypertension Pancreatic divisum Recurrent acute pancreatitis Past Surgical History: Procedure Laterality Date CHOLECYSTECTOMY HERNIA REPAIR HYSTERECTOMY Flowsheet Data 11/19/24 1026 OT Time and Intention OT Visit Type initial evaluation Mode of Treatment occupational therapy Patient Effort good Symptoms Noted During/After Treatment fatigue General Information Patient Profile Reviewed yes Onset of Illness/Injury or Date of Surgery 11/17/24 Referring Physician Champ Patient/Family/Caregiver Comments/Observations I'm from [place] General Observations of Patient supine in bed agreeable for evaluation Pertinent History of Current Functional Problem admitted with severe acute pancreatitis. PMHx Barretts espohagus, DM2, CAD, HTN/HLD Existing Precautions/Restrictions fall Previous Level of Function/Home Environm BADLs, Premorbid Functional Level independent IADLs, Premorbid Functional Level independent Bed Mobility, Premorbid Functional Level independent Transfers, Premorbid Functional Level independent Household Ambulation, Premorbid Functional Level independent Stairs, Premorbid Functional Level independent Community Ambulation, Premorbid Functional Level independent Previous Level of Function, Premorbid patient lives with in a 2 level house, 2-3 KWAD[place], patient can stay on one level at home. has a cane that she uses occassionally. [facility] Home Use of Assistive/Adaptive Equipment Equipment Currently Used at Home none Occupational Profile Patient Goals (Occupational Profile) return to PLOF Pain Assessment Pretreatment Pain Rating 0/10 - no pain Posttreatment Pain Rating 0/10 - no pain Cognition Cognitive Status WFL Progressive Mobility Progressive Mobility Level Achieved Ambulation [facility] Daily Activity Putting on and taking off Lower Body Clothing? 3 Bathing (including washing/rinsing/drying)? 3 Toileting (includes using toilet, bedpan, or urinal)? 3 Putting on and taking off upper body clothing? 3 Taking care of personal grooming such as brushing teeth? 4 Eating meals? 4 [facility] Daily Activity Score 20 Therapy Assessment/Plan (OT) Patient/Family Therapy Goal Statement (OT) return home Functional Level at Time of Evaluation (OT) Ax1 ADLs/transfers OT Diagnosis decreased strength/endurance/balance Rehab Potential (OT) good Criteria for Skilled Therapeutic Interventions Met (OT) yes;meets criteria;skilled treatment is necessary Therapy Frequency (OT) 3-5 times/wk Predicted Duration of Therapy Intervention (OT) LOS Problem List (OT) problems related to;balance;mobility;strength;postural control Activity Limitations Related to Problem List (OT) unable to ambulate safely;unable to transfer safely;BADLs not performed adequately or safely;IADLs not performed adequately or safely;community activities not performed adequately or safely;home management activity not performed adequately or safely Planned Therapy Interventions (OT) activity tolerance training;BADL retraining;adaptive equipment training;functional balance retraining;neuromuscular control/coordination retraining;occupation/activity based interventions;ROM/therapeutic exercise;strengthening exercise;transfer/mobility retraining Evaluation Complexity (OT) Overall Complexity of Evaluation (OT) moderate complexity Therapy Plan Review/Discharge Plan (OT) Therapy Plan Review (OT) evaluation/treatment results reviewed;care plan/treatment goals reviewed;participants voiced agreement with care plan;participants included;patient OT Recommendations for Staff encourage ADL independence OT Goals Transfer Goal Selection (OT) transfer, OT goal 1 Bathing Goal Selection (OT) bathing, OT goal 1 Dressing Goal Selection (OT) dressing, OT goal 1 Toileting Goal Selection (OT) toileting, OT goal 1 Transfer Goal 1 (OT) [place] Level/Cues Needed (Transfer Goal 1, OT) independent Activity/Assistive Device (Transfer Goal 1, OT) transfers, all Time Frame (Transfer Goal 1, OT) 2 weeks Bathing Goal 1 (OT) [place] Level/Cues Needed (Bathing Goal 1, OT) independent Activity/Device (Bathing Goal 1, OT) bathing skills, all Time Frame (Bathing Goal 1, OT) 2 weeks Dressing Goal 1 (OT) Activity/Device (Dressing Goal 1, OT) dressing skills, all Time Frame (Dressing Goal 1, OT) 2 weeks [place]/Cues Needed (Dressing Goal 1, OT) independent Toileting Goal 1 (OT) Activity/Device (Toileting Goal 1, OT) toileting skills, all Time Frame (Toileting Goal 1, OT) 2 weeks [place] Level/Cues Needed (Toileting Goal 1, OT) independent Sign: Anival Aguila OT * Rehab Therapy Consults - Joyce Deleon, PT - 11/19/2024 10:25 AM EDT Physical Therapy Initial Evaluation Assessment Current Diagnosis and Pertinent Medical History: Felecia Soliman is a 69 y.o. female with a PMH of asthma, mcdermott's esophagus, endometrial/cervical cancer, CAD, IDDM type 2, HTN/HLD, embolism and pancreatic divisum and recurrent acute pancreatitis who presented to OSH with 2 days of progressively worsening abdominal pain. Prior Level of Function: At baseline, patient lives with in a 2 level house, 2-3 KWADWO, patient can stay on one level at home. has a cane that she uses occassionally. [facility] Current Level of Function and Impairments: Patient currently presents with impaired mobility Patient requires CGA with walker for mobility. Patient demo slow steady gait and no LOB during session. Safety Measures: Patient was left in bed, call smith in reach, needs addressed, and nursing notified. Outcome Measures: Activity Measure for Post-Acute Care (AMPAC) is a standardized assessment used to identify functional impairments in mobility and self-care. A higher score indicates higher level of independence for tasks. Baseline [facility] Basic Mobility Score: 23 Current AMPA Basic Mobility Score: 18 (AMPA Mobility Raw Score of 14-19 indicates 40-60% impairment with mobility) Current [facility] Daily Activity Score: Rehab Plan of Care Patient would benefit from ongoing physical therapy services at home to address acute impairments following hospital stay. Patient is currently below prior level of function and has potential to achieve goal of maximizing functional independence with continuation of skilled physical therapy intervention. If transitioning to home, patient will require walker, rolling and home PT/OT/RN 1.) PT Recommendations for Staff: assist x 1 with walker 2.) PT Frequency: 3-5 times/wk during hospitalization 3.) Plan of Care Reviewed With: evaluation/treatment results reviewed, care plan/treatment goals reviewed, patient 4.) Transition Care Planning: Patient's current level of function and post-acute rehab needs discussed with IDT. Objective Data ROM: WNL BLE MMT: grossly 3/5 BLE Sensation: intact to light touch Bed Mobility: supine to sitting at EOB CGA Transfers: sit<>stand with walker CGA Gait/Stairs: 10ft with walker CGA Balance: static sitting-good; dynamic sitting-good; static standing;-good, dynamic standing-good. Activity Tolerance: good for eval. Patient performed all activity on room air. Vitals: VSS Education: Explained role of PT, purpose of evaluation, and POC. Treatment: as above Subjective Willing to participate with PT Past Medical/Surgery History Past Medical History: Diagnosis Date Asthma Mcdermott's esophagus Cancer (HCC) endometrial Cervical cancer (HCC) Coronary artery disease Diabetes mellitus (HCC) IDDM Embolism (HCC) Hyperlipidemia hypertriglyceridemia Hypertension Pancreatic divisum Recurrent acute pancreatitis Past Surgical History: Procedure Laterality Date CHOLECYSTECTOMY HERNIA REPAIR HYSTERECTOMY Flowsheet Data 11/19/24 1025 Physical Therapy Time and Intention PT Visit Type initial evaluation Mode of Treatment individual therapy;physical therapy Patient Effort good Symptoms Noted During/After Treatment fatigue General Information Patient Profile Reviewed yes Onset of Illness/Injury or Date of Surgery 11/17/24 Referring Physician champ General Observations of Patient in bed resting Pertinent History of Current Functional Problem with a PMH of asthma, mcdermott's esophagus, endometrial/cervical cancer, CAD, IDDM type 2, HTN/HLD, embolism and pancreatic divisum and recurrent acute pancreatitis who presented to OSH with 2 days of progressively worsening abdominal pain. Existing Precautions/Restrictions fall Previous Level of Function/Home Environm Previous Level of Function, Premorbid patient lives with in a 2 level house, 2-3 KWADWO, patient can stay on one level at home. has a cane that she uses occassionally. [facility] [facility] Progressive Mobility Progressive Mobility Level Achieved Ambulation Ambulation Distance (Feet) 10 [facility] Basic Mobility Turning from your back to your side while in a flat bed without using bedrails? 3 Moving from lying on your back to sitting on the side of a flat bed without using bedrails? 3 Moving to and from a bed to a chair (including wheelchair)? 3 Standing up from a chair using your arms? 3 To walk in a hospital room? 3 Climbing 3-5 steps with a railing? 3 [facility] Basic Mobility Score 18 Therapy Assessment/Plan (PT) Patient/Family Therapy Goals Statement (PT) to feel better Functional Level at Time of Evaluation (PT) CGA with walker PT Diagnosis (PT) impaired mobility Rehab Potential (PT) good Criteria for Skilled Interventions Met (PT) yes;meets criteria Therapy Frequency (PT) 3-5 times/wk PT Recommendations for Staff assist x 1 with walker Predicted Duration of Therapy Intervention (PT) LOS Planned Therapy Interventions (PT) balance training;gait training;bed mobility training;home exercise program;neuromuscular re-education;patient/family education;ROM (range of motion);stair training;strengthening;transfer training PT Evaluation Complexity Overall Complexity (PT Evaluation Complexity) moderate complexity Therapy Plan Review/Discharge Plan (PT) Therapy Plan Review (PT) evaluation/treatment results reviewed;care plan/treatment goals reviewed;patient Anticipated Equipment Needs at Discharge (PT) walker, rolling Physical Therapy Goals Gait Training Goal Selection (PT) gait training, PT goal 1 Gait Training Goal 1 (PT) Time Frame (Gait Training Goal 1, PT) short-term goal (STG) [place] Level (Gait Training Goal 1, PT) modified independence Activity/Assistive Device (Gait Training Goal 1, PT) gait (walking locomotion);assistive device use;decrease fall risk;walker, rolling Distance (Gait Training Goal 1, PT) 300 Sign: Joyce Deleon, PT * Plan of Care - Jennifer Garcia RN - 11/19/2024 8:55 AM EDT Pt remains in the ICU under hospitalist care. Pt was transferred from [facility] for ICU needs. Pt states that she will return home without services. Family will provide transport. Pt educated that she will need to obtain PCP at home. She states that she is working on it. Plan of care/Discharge planning is ongoing. * Plan of Care - Emeli Tyler RN - 11/19/2024 5:10 AM EDT Outcome Evaluation: pt alert and oriented, nsr on tele, room air, finger stick ACHS, PRN pain meds given with good effect Emeli Tyler 11/19/2024 5:10 AM * Plan of Care - Nancy Rose RN - 11/18/2024 7:23 PM EDT Pt s/p admission from [facility] for N/V/hypertriglyceridemia. Pt alert and oriented, VSS, home meds initiated for asymptomatic HTN. Insulin and D10 gtts d/c'd, clear diet initiated, taking approx 25% of meals, c/o 03/18 generalized abd pain tx with IV dilaudid with modest improvement, Abd soft, +bs, BM x 2, lungs with basilar rales, improving afetr IVF d/c'd, 95% and above SaO2 on room air. Voiding clear yellow urine. Skin intact, OOB with minimal assist to chair. Pt states understanding of current plan of care, safety maintained, will CTM. Nancy Rose 11/18/2024 7:23 PM * Plan of Care - Cathy Koenig DO - 11/18/2024 4:08 PM EDT 69-year-old female with past medical history of asthma, Mcdermott's esophagus, endometrial/cervical cancer, CAD, independent diabetes mellitus, hypertension, hyperlipidemia, chronic pancreatitis, who presented with 2 days of worsening abdominal pain, on arrival lipase was 1428, triglyceride 952. CT abdomen pelvis showed pancreatic edema, patient was transferred from OSH to [facility] admitted to ICU for hypertriglyceridemia. While in ICU patient was on insulin drip, repeat triglyceride level was checkedand overall was improving. Insulin drip was discontinued patient was switched to Lantus. Triglycerides were monitored every 8 hours. GI team was consulted for acute on chronic pancreatitis: Diet has been advanced to clear liquids With improvement in initial symptoms, patient has been stable for downgrade to medicine service * Plan of Care - Jennifer Garcia RN - 11/18/2024 2:11 PM EDT Case Management Care Plan Note Summary: Pt was a transfer from [facility] for ICU need (insulin infusion). CM met with patient to discuss transition of care needs. Patient was independent prior to admissionand is anticipated to transition home when medically cleared without services. Patient is NOT oxygen/CPAP dependent. Pt has NO DME. Pt does drive. Pt has family support. Will transport. Patient is refusing services at this time. [facility] - updated SDOH Completed. Plan of care/discharge planning is ongoing. SW/CM will follow and remain available if needed. Recommendations: Admission Type: inpatient Referral Source: admission list Reason for Consult: discharge planning Source of Information: patient Limitations on Visitors/Phone Calls: none Current or Previous Service: none Adaptive Services: not applicable Does the Patient Have a CT DNR [place] Bracelet or State DNR Form?: no Clinical Trial: not applicable Primary Care Provided by: self Provides Primary Care For: no one Family Caregiver if Needed: spouse Quality of Family Relationships: helpful Able to Return to Prior Arrangements: yes Resource/Environmental Concerns: none Transportation Concerns: none Hearing Difficulty or Deaf: no Wear Glasses or Blind: yes Concentrating, Remembering or Making Decisions Difficulty: no Difficulty Communicating: no Difficulty Eating/Swallowing: no Doing Errands Independently Difficulty (such as shopping): no Equipment Currently Used at Home: none Change in Functional Status Since Onset of Current Illness/Injury: no Current Activity Tolerance: good Medications: independent Meal Preparation: independent Housekeeping: independent Laundry: independent Shopping: independent Patient/Patient Progressive Care Unit Registered Nurse Provided With Choices Of: they had no preference Insurance Benfits/Coverage Discussed with: Patient W10 Form Completed?: Started Level of Care Completed: No Patient Declined Aftercare: yes Patient/Family Anticipates Transition to: home with family; home Patient/Family Anticipated Services at Transition: none Transportation Anticipated: family or friend will provide * Case Coordination-Payor Communication - Dipti Norris RN - 11/18/2024 10:09 AM EDT Admission Note Type: (Inpt/Obsv): Inpatient Date of Admission: 11/17/2024 Admitting Dx: Severe acute pancreatitis [K85.90] PMH: Past Medical History: Diagnosis Date Asthma Mcdermott's esophagus Cancer (HCC) endometrial Cervical cancer (HCC) Coronary artery disease Diabetes mellitus (HCC) IDDM Embolism (HCC) Hyperlipidemia hypertriglyceridemia Hypertension Pancreatic divisum Recurrent acute pancreatitis HPI: This is a 69 y.o. female with a PMH of asthma, mcdermott's esophagus, endometrial/cervical cancer, CAD, IDDM type 2, HTN/HLD, embolism and pancreatic divisum and recurrent acute pancreatitis who presented to OSH with 2 days of progressively worsening abdominal pain. Lab work showed an elevated lipase of 1428 with triglycerides of 952. CT of the abdomen showed peripancreatic edema pattern. Other significant lab work includes WBC 11.6, glucose 414, mg 1.5. She was started on an insulin infusion for acute pancreatitis in the setting of hypertriglyceridemia. The patient was transferred to [facility] for ICU bed availability. Her labs were checked on arrival at [facility] which showed mag 1.8, K 3.3 and phos of 2.2. She was given replacement of all three. Her initial FS was low in the 30s and she was switched from D5W to D10 with FS ranging between 115- 171. TGs are trending down with the most recent 534. Due to the need for an insulin infusion the patient was admitted to the ICU. Vitals: 11/17/24 2300 -- 92 19 176/54 Abnormal 98 -- 11/17/24 2202 -- -- -- 189/78 Abnormal -- -- 11/17/24 2100 -- 69 11 Abnormal 212/77 Abnormal 93 room air (none) 11/17/241999 97.5 (36.4) 72 16 182/76 Abnormal 97 room air (none) Labs/Diagnostics: 11/17/24 19:36 11/17/24 19:50 11/17/24 20:25 11/17/24 21:02 11/17/24 22:08 11/17/24 23:01 White Blood Cell Count 9.9 Red Blood Cell Count 4.62 Hemoglobin 13.0 Hematocrit 40.5 MCV 88 MCH 28.1 MCHC 32.1 RDW 14.2 Platelet Count 221 MPV 11.7 Sodium 138 Potassium 3.3 (L) Chloride 103 CO2, POC 22 Anion Gap 13 BUN 12 Creatinine 0.6 Bun / Creat Ratio 20 Glucose 111 (H) Calcium 8.9 Magnesium 1.8 eGFR >90 Phosphorus 2.2 (L) Triglycerides 743 (H) POC Glucose 39 (LL) 165 (H) 115 (H) 132 (H) 111 (H) 105 (H) Orders/Treatment Plan: Neuro: Patient is alert and oriented x's 4 -holding home oxycodone, gabapentin Respiratory: Hx of Asthma -continuous pulse oximetry CV: Hx of HTN/HLD, hypertriglyceridemia, CAD Hypertensive -holding home imdur, metoprolol, amlodipine, atorvastatin, enalapril, fenofibrate, hydralazine while NPO -has responded to IV labetalol GI: Hx of GERD, recurrent acute pancreatitis, pancreatic divisum Strict NPO -holding home lansoprazole -on insulin infusion -trend TG Q8H Renal: Hypomagnesemia, Hypokalemia, hypophosphatemia -trend and replace as needed -strict I and O monitoring -patient refusing aguedack Endocrine: Hx of IDDM type 2 -FS Q1H -on insulin infusion Hematologic: -ppx with enoxaparin, SCDs ID: No active issues LDAs: PIVs Medications: Apresoline IV x1, Magnesium Sulfate IV x1, Potassium Chloride IV x2, D10W IV infusion at 250 mL/hr, Humulin-R IV infusion at 10.2 mL/hr, Dextrose 50% IV PRN x1, Dilaudid IV PRN x1, Zofran IV PRN x1 Bed Type: ICU Sign Dipti Norris RN 11/18/2024 10:09 AM * Plan of Care - Emeli Tyler RN - 11/18/2024 7:04 AM EDT Outcome Evaluation: pt admitted from [place], AOX4, nsr on tele, bp elevated provider aware, insulin and d10 in place, q1 finger sticks in place Emeli Tyler 11/18/2024 7:04 AM documented in this encounter Plan of Treatment Not on file documented as of this encounter Procedures Procedure Name Priority Date/Time Associated Diagnosis [...] (NO CHARGE) Routine 11/23/2024 4:41 PM EDT COMPLETE BLOOD COUNT, WITHOUT DIFFERENTIAL Routine 11/23/2024 2:23 PM EDT LIPASE Routine 11/23/2024 2:23 PM EDT COMPREHENSIVE METABOLIC [...] CHARGE) Routine 11/21/2024 4:21 PM EDT URINE CULTURE Routine 11/21/2024 2:05 PM EDT URINALYSIS WITH REFLEX TO MICROSCOPIC Routine 11/21/2024 2:05 PM EDT URINE MICROSCOPIC EXAM Routine 2:05 PM EDT POCT GLUCOSE, FINGERSTICK (POCGLU) [...] (NO CHARGE) Routine 11/20/2024 7:39 AM EDT GASTROINTESTINAL EXPANDED LATONYA PANEL STAT 11/20/2024 1:15 AM EDT C. DIFFICILE TOXIN AND NAP1 PCR WITH REFLEX TO C. DIFF AG/TOXIN EIA STAT 11/20/2024 1:15 AM EDT POCT GLUCOSE, [...] (NO CHARGE) Routine 11/18/2024 7:00 AM EDT COMPLETE BLOOD COUNT, WITHOUT DIFFERENTIAL Routine 11/18/2024 6:05 AM EDT TRIGLYCERIDES Routine 11/18/2024 6:05 AM EDT PHOSPHORUS Routine 11/18/2024 6:05 AM EDT MAGNESIUM Routine 11/18/2024 6:05 AM EDT COMPREHENSIVE METABOLIC PANEL Routine 11/18/2024 6:05 AM EDT POCT GLUCOSE, FINGERSTICK (POCGLU) (NO CHARGE) Routine 11/18/2024 6:04 AM EDT POCT GLUCOSE, FINGERSTICK (POCGLU) (NO CHARGE) Routine 11/18/2024 5:08 AM EDT TRIGLYCERIDES Routine 11/18/2024 4:10 AM EDT POTASSIUM Routine 11/18/2024 4:10 AM EDT LIPASE Routine 11/18/2024 4:10 AM EDT LACTATE DEHYDROGENASE (LDH) Routine 11/18/2024 4:10 AM EDT POCT GLUCOSE, [...] (NO CHARGE) Routine 11/17/2024 8:25 PM EDT COMPLETE BLOOD COUNT, WITHOUT DIFFERENTIAL Routine 11/17/2024 8:25 PM EDT TRIGLYCERIDES Routine 11/17/2024 8:25 PM EDT PHOSPHORUS Routine 11/17/2024 8:25 PM EDT MAGNESIUM Routine 11/17/2024 8:25 PM EDT BASIC METABOLIC PANEL Routine 11/17/2024 8:25 PM EDT POCT GLUCOSE, FINGERSTICK (POCGLU) (NO CHARGE) Routine 11/17/2024 7:50 PM EDT POCT GLUCOSE, FINGERSTICK (POCGLU) (NO CHARGE) Routine 11/17/2024 7:36 PM EDT documented in this encounter Results * (ABNORMAL) POCT Glucose, Fingerstick (11/24/2024 4:52 PM EDT) POC Glucose 203(H) 65 - 99 mg/dL 11/24/2024 4:59 PM EDT Comment:Notified RN Blood specimen / Unknown 11/24/2024 4:52 PM EDT 11/24/2024 4:59 PM EDT Cathy Koenig DO POINT OF CARE TEST O RDERABLES Performing Organization Address [facility]/Page [facility] Number [facility] See Below * (ABNORMAL) POCT Glucose, Fingerstick (11/24/2024 11:42 AM EDT) POC Glucose 165(H) 65 - 99 mg/dL 11/24/2024 11:49 AM EDT Comment:Notified RN Blood specimen / Unknown 11/24/2024 11:42 AM EDT 11/24/2024 11:49 AM EDT Cathy Koenig DO POINT OF CARE TEST O RDERABLES Performing Organization Address [facility] Co ma Phone Number HOSPITAL LAB See Below * (ABNORMAL) POCT Glucose, Fingerstick (11/24/2024 7:53 AM EDT) POC Glucose 131(H) 65 - 99 mg/dL 11/24/2024 8:00 AM EDT Comment:Notified RN Blood specimen / Unknown 11/24/2024 7:53 AM EDT 11/24/2024 8:00 AM EDT Cathy Koenig DO POINT OF CARE TEST O RDERABLES HOSPITAL LAB See Below * (ABNORMAL) POCT Glucose, Fingerstick (11/23/2024 8:26 PM EDT) POC Glucose 234(H) 65 - 99 mg/dL 11/23/2024 8:32 PM EDT Comment:Notified RN Blood specimen / Unknown 11/23/2024 8:26 PM EDT 11/23/2024 8:32 PM EDT Israr H Koenig DO POINT OF CARE TEST O RDERABLES Performing Organization Address City/[facility]/ZIP Co de Phone Number HOSPITAL LAB See Below * CT Abdomen+pelvis [...] 1 anterolistheses seen at L4/5 and L5/S1. [id number]-[id number] degenerative change of the spine. There is [...] grade 1 anterolistheses seen at L4/5 andL5/S1. [id number] degenerative change of the spine. There is [...] Koenig DO IMG CT ORDERABLES * (ABNORMAL) POCT Glucose, Fingerstick (11/23/2024 4:41 PM EDT) POC Glucose 223(H) 65 - 99 mg/dL 11/23/2024 4:48 PM EDT Comment:Notified RN Blood specimen / Unknown 11/23/2024 4:41 PM EDT 11/23/2024 4:48 PM EDT Cathy Koenig DO POINT OF CARE TEST O RDERABLES HOSPITAL LAB See Below * Lipase (11/23/2024 2:23 PM EDT) Lipase 60 13 - 60 U/L 11/23/2024 3:05 PM EDT [facility] Blood Blood specimen / Unknown 11/23/2024 2:23 PM EDT 11/23/2024 2:30 PM EDT Cathy Koenig DO LAB BLOOD ORDERABLES Performing Organization Address City/[facility]/[place] [address], * (ABNORMAL) COMPLETE BLOOD COUNT, WITHOUT DIFFERENTIAL (11/23/2024 2:23 PM EDT) White Blood Cell Count 5.3 4.0 - 11.0 Thou/uL 11/23/2024 2:45 PM EDT [facility] Platelet Count 241 150 - 450 Thou/uL 11/23/2024 2:45 PM EDT [facility] Hemoglobin 11.2(L) 11.7 - 15.7 g/dL 11/23/2024 2:45 PM EDT [facility] Hematocrit 35.1 35.0 - 47.0 % 11/23/2024 2:45 PM EDT [facility] Red Blood Cell Count 3.96(L) 4.00 - 5.40 Mil/uL 11/23/2024 2:45 PM EDT [facility] MCV 89 80 - 100 fL 11/23/2024 2:45 PM EDT [facility] MCH 28.3 27.0 - 31.0 pg 11/23/2024 2:45 PM EDT [facility] MCHC 31.9 30.0 - 36.0 g/dL 11/23/2024 2:45 PM EDT [facility] RDW 14.0 11.5 - 14.5 % 11/23/2024 2:45 PM EDT [facility] MPV 11.6 7.5 - 12.5 fL 11/23/2024 2:45 PM EDT [facility] Blood Blood specimen / Unknown 11/23/2024 2:23 PM EDT 11/23/2024 2:30 PM EDT Cathy Koenig DO LAB BLOOD ORDERABLES [address] * (ABNORMAL) Comprehensive Metabolic Panel (11/23/2024 2:23 PM EDT) Glucose 266(H) 65 - 99 mg/dL 11/23/2024 3:05 PM EDT [facility] Comment:Fasting: <100 mg/dL, Non-Fasting: <200 mg/dL (ADA 2004) Blood Urea Nitrogen (BUN) 9 8 - 21 mg/dL 11/23/2024 3:05 PM EDT [facility] Creatinine 0.8 0.4 - 1.1 mg/dL 11/23/2024 3:05 PM EDT [facility] eGFR 79 >59 11/23/2024 3:05 PM EDT [facility] Comment:CKD-EPI (2020) in mL /min/1.73 sq meters. Sodium 136 136 - 145 mmol/L 11/23/2024 3:05 PM EDT [facility] Potassium 3.9 3.4 - 5.3 mmol/L 11/23/2024 3:05 PM EDT [facility] Chloride 101 98 - 107 mmol/L 11/23/2024 3:05 PM EDT [facility] CO2 26 22 - 33 mmol/L 11/23/2024 3:05 PM EDT [facility] Calcium 9.5 8.7 - 10.5 mg/dL 11/23/2024 3:05 PM EDT [facility] Alkaline Phosphatase 70 32 - 122 U/L 11/23/2024 3:05 PM EDT [facility] Aspartate Aminotrans (AST) 27 10 - 50 U/L 11/23/2024 3:05 PM EDT [facility] Alanine Aminotrans (ALT) 14 10 - 50 U/L 11/23/2024 3:05 PM EDT [facility] Bilirubin, Total 0.4 0.2 - 1.0 mg/dL 11/23/2024 3:05 PM EDT [facility] Protein, Total 6.6 6.3 - 8.3 g/dL 11/23/2024 3:05 PM EDT [facility] Albumin 3.5 3.4 - 4.8 g/dL 11/23/2024 3:05 PM EDT [facility] BUN/Creatinine Ratio 11 10.0 - 25.0 Ratio 11/23/2024 3:05 PM EDT [facility] Globulin 3.1 1.5 - 3.9 g/dL 11/23/2024 3:05 PM EDT [facility] Albumin/Globulin Ratio 1.1 1.0 - 3.0 Ratio 11/23/2024 3:05 PM EDT [facility] Anion Gap 9 7 - 17 11/23/2024 3:05 PM EDT [facility] Blood Blood specimen / Unknown 11/23/2024 2:23 PM EDT 11/23/2024 2:30 PM EDT Cathy Koenig DO LAB BLOOD ORDERABLES Performing Organization Address City/[facility]/ZIP Co de Phone Number [address] * (ABNORMAL) POCT Glucose, Fingerstick (11/23/2024 12:22 PM EDT) POC Glucose 233(H) 65 - 99 mg/dL 11/23/2024 12:28 PM EDT Comment:Notified RN Blood specimen / Unknown 11/23/2024 12:22 PM EDT 11/23/2024 12:28 PM EDT Cathy Koenig DO POINT OF CARE TEST O RDERABLES [facility] See Below * (ABNORMAL) POCT Glucose, Fingerstick (11/23/2024 8:01 AM EDT) POC Glucose 167(H) 65 - 99 mg/dL 11/23/2024 8:07 AM EDT Comment:Notified RN Blood specimen / Unknown 11/23/2024 8:01 AM EDT 11/23/2024 8:07 AM EDT Darrelleufemia Villar Koenig DO POINT OF CARE TEST O RDERABLES Performing Organization Address [facility] LAB See Below * (ABNORMAL) POCT Glucose, Fingerstick (11/22/2024 8:59 PM EDT) POC Glucose 246(H) 65 - 99 mg/dL 11/22/2024 9:06 PM EDT Blood specimen / Unknown 11/22/2024 8:59 PM EDT 11/22/2024 9:06 PM EDT Darrelleufemia Villar Koenig DO POINT OF CARE TEST O RDERABLES Performing Organization Address [facility] LAB See Below * (ABNORMAL) POCT Glucose, Fingerstick (11/22/2024 4:05 PM EDT) POC Glucose 240(H) 65 - 99 mg/dL 11/22/2024 4:12 PM EDT Blood specimen / Unknown 11/22/2024 4:05 PM EDT 11/22/2024 4:12 PM EDT Cathy Villar Koenig DO POINT OF CARE TEST O RDERABLES Performing Organization Address [facility] LAB See Below * (ABNORMAL) POCT Glucose, Fingerstick (11/22/2024 11:08 AM EDT) POC Glucose 213(H) 65 - 99 mg/dL 11/22/2024 11:15 AM EDT Comment:Notified RN Blood specimen / Unknown 11/22/2024 11:08 AM EDT 11/22/2024 11:15 AM EDT Darrelleufemia Koenig DO POINT OF CARE TEST O RDERABLES Performing Organization Address [facility]/State/ZIP Co de Phone Number [facility] See Below * (ABNORMAL) POCT Glucose, Fingerstick (11/22/2024 8:41 AM EDT) POC Glucose 106(H) 65 - 99 mg/dL 11/22/2024 8:47 AM EDT Comment:Notified RN Blood specimen / Unknown 11/22/2024 8:41 AM EDT 11/22/2024 8:47 AM EDT Cathy Koenig DO POINT OF CARE TEST O RDERABLES Performing Organization Address [facility] Phone Number [facility] See Below * (ABNORMAL) POCT Glucose, Fingerstick (11/22/2024 8:00 AM EDT) POC Glucose 55(L) 65 - 99 mg/dL 11/22/2024 8:07 AM EDT Comment:Notified RN Blood specimen / Unknown 11/22/2024 8:00 AM EDT 11/22/2024 8:07 AM EDT Cathy Koenig DO POINT OF CARE TEST O RDERABLES Performing Organization Address [facility] Co de Phone Number [facility] See Below * (ABNORMAL) Triglycerides (11/22/2024 5:00 AM EDT) Triglycerides 241(H) <150 mg/dL 11/22/2024 5:42 AM EDT [facility] Blood Blood specimen / Unknown 11/22/2024 5:00 AM EDT 11/22/2024 5:16 AM EDT Cathy Koenig DO LAB BLOOD ORDERABLES Performing Organization Address [facility] Co de Phone Number [facility] [address] [place] [address], [place] * (ABNORMAL) POCT Glucose, Fingerstick (11/21/2024 8:19 PM EDT) POC Glucose 157(H) 65 - 99 mg/dL 11/21/2024 8:28 PM EDT Comment:Notified RN Blood specimen / Unknown 11/21/2024 8:19 PM EDT 11/21/2024 8:28 PM EDT Cathy Koenig DO POINT OF CARE TEST O RDERABLES HOSPITAL LAB See Below * (ABNORMAL) POCT Glucose, Fingerstick (11/21/2024 4:21 PM EDT) POC Glucose 185(H) 65 - 99 mg/dL 11/21/2024 4:28 PM EDT Comment:Notified RN Blood specimen / Unknown 11/21/2024 4:21 PM EDT 11/21/2024 4:28 PM EDT Cathy Koenig DO POINT OF CARE TEST O RDERABLES [facility] See Below * (ABNORMAL) Urine Microscopic Exam (11/21/2024 2:05 PM EDT) WBC >25(H) per hpf 11/21/2024 3:06 PM EDT [facility] RBC 8(H) per hpf 11/21/2024 3:06 PM EDT [facility] Bacteria Present(A) 11/21/2024 3:06 PM EDT [facility] Squamous Epithelial Cells 12 per hpf 11/21/2024 3:06 PM EDT [facility] Hyaline Casts 4 per lpf 11/21/2024 3:06 PM EDT [facility] WBC Clumps Present(A) 11/21/2024 3:06 PM EDT [facility] Crystals Absent 11/21/2024 3:06 PM EDT [facility] Urine specimen obtained by clean catch procedure / Unknown 11/21/2024 2:05 PM EDT 11/21/2024 2:16 PM EDT Cathy Koenig DO URINE ORDERABLES [facility] [address] [place] [address], * (ABNORMAL) Urine Culture (11/21/2024 2:05 PM EDT) Culture Klebsiella pneumoniae >=100,000 col/mL (A) 11/22/2024 12:51 PM EDT [facility] Urine Urine specimen obtained [...] Koenig DO MICROBIOLOGY - GENER AL ORDERABLES [facility] [address] [place] [address], [place] * (ABNORMAL) Urinalysis with Reflex to Microscopic (11/21/2024 2:05 PM EDT) Color Yellow 11/21/2024 2:43 PM EDT [facility] Clarity Turbid 11/21/2024 2:43 PM EDT [facility] Specific [place] 1.020 1.003 - 1.030 11/21/2024 2:43 PM EDT [facility] pH 6.0 5.0 - 8.0 11/21/2024 2:43 PM EDT [facility] Leukocyte Esterase Moderate(A) Negative 11/21/2024 2:43 PM EDT [facility] Nitrite Positive(A) Negative 11/21/2024 2:43 PM EDT [facility] Protein Moderate (100 mg/dL)(A) Negative 11/21/2024 2:43 PM EDT [facility] Glucose Negative Negative mg/dL 11/21/2024 2:43 PM EDT [facility] Ketones Negative Negative 11/21/2024 2:43 PM EDT [facility] Blood Trace(A) Negative 11/21/2024 2:43 PM EDT [facility] Bilirubin Negative Negative 11/21/2024 2:43 PM EDT [facility] Urine Urine specimen obtained by clean catch procedure / Unknown 11/21/2024 2:05 PM EDT 11/21/2024 2:16 PM EDT Cathy Koenig DO URINE ORDERABLES [facility] [address] [place] [address], [place] * (ABNORMAL) POCT Glucose, Fingerstick (11/21/2024 12:50 PM EDT) POC Glucose 144(H) 65 - 99 mg/dL 11/21/2024 12:56 PM EDT Comment:Notified RN Blood specimen / Unknown 11/21/2024 12:50 PM EDT 11/21/2024 12:56 PM EDT Cathy Koenig DO POINT OF CARE TEST O RDERABLES Performing Organization Address [facility] LAB See Below * (ABNORMAL) POCT Glucose, Fingerstick (11/21/2024 8:09 AM EDT) POC Glucose 128(H) 65 - 99 mg/dL 11/21/2024 8:20 AM EDT Comment:Notified RN Blood specimen / Unknown 11/21/2024 8:09 AM EDT 11/21/2024 8:20 AM EDT Cathy Koenig DO POINT OF CARE TEST O RDERABLES Performing Organization Address [facility] LAB See Below * (ABNORMAL) POCT Glucose, Fingerstick (11/20/2024 9:07 PM EDT) POC Glucose 212(H) 65 - 99 mg/dL 11/20/2024 9:13 PM EDT Comment: Notified RN Notified Blood specimen / Unknown 11/20/2024 9:07 PM EDT 11/20/2024 9:13 PM EDT Cathy Koenig DO POINT OF CARE TEST O RDERAAMELIA Performing Organization Address [facility] LAB See Below * (ABNORMAL) POCT Glucose, Fingerstick (11/20/2024 4:29 PM EDT) POC Glucose 144(H) 65 - 99 mg/dL 11/20/2024 4:35 PM EDT Comment:Notified RN Blood specimen / Unknown 11/20/2024 4:29 PM EDT 11/20/2024 4:35 PM EDT Cathy Koenig DO POINT OF CARE TEST O RDERABLES Performing Organization Address [facility]/ZIP Co de Phone Number HOSPITAL LAB See Below * (ABNORMAL) POCT Glucose, Fingerstick (11/20/2024 11:50 AM EDT) POC Glucose 145(H) 65 - 99 mg/dL 11/20/2024 12:09 PM EDT Comment:Notified RN Blood specimen / Unknown 11/20/2024 11:50 AM EDT 11/20/2024 11:57 AM EDT Cathy Koenig DO POINT OF CARE TEST O RDERABLES Performing Organization Address [facility] de Phone Number HOSPITAL LAB See Below * (ABNORMAL) POCT Glucose, Fingerstick (11/20/2024 7:39 AM EDT) POC Glucose 153(H) 65 - 99 mg/dL 11/20/2024 7:47 AM EDT Comment:Notified RN Blood specimen / Unknown 11/20/2024 7:39 AM EDT 11/20/2024 7:47 AM EDT Cathy Koenig DO POINT OF CARE TEST O RDERABLES Performing Organization Address [facility] Co de Phone Number [facility] LAB See Below * C. difficile Toxin and NAP1 PCR with reflex to C. diff Ag/Toxin EIA (11/20/2024 1:15 AM EDT) C. difficile Toxin Gene Negative Negative 11/20/2024 5:54 PM EDT [facility] Comment:Performed by the Xpe rt C. difficile/Epi Assay NAP1 Presumptive Negative Presumptive Negative 11/20/2024 5:54 PM EDT [facility] Comment:Performed by the Xpe rt C. difficile/Epi Assay Stool specimen / Unknown 11/20/2024 1:15 AM EDT 11/20/2024 1:41 AM EDT Debbie Beatty MD MICROBIOLOGY - GEN ERAL ORDERABLES [facility] [address] [place] [address], * GI PCR Panel (11/20/2024 1:15 AM EDT) Campylobacter Not Detected Not Detected 11/20/2024 8:10 PM EDT [facility] Plesiomonas shigelloides Not Detected Not Detected 11/20/2024 8:10 PM EDT [facility] Salmonella Not Detected Not Detected 11/20/2024 8:10 PM EDT [facility] Yersinia enterocolitica Not Detected Not Detected 11/20/2024 8:10 PM EDT [facility] Vibrio Not Detected Not Detected 11/20/2024 8:10 PM EDT [facility] Vibrio cholerae Not Detected Not Detected 11/20/2024 8:10 PM EDT [facility] Adenovirus F 40/41 Not Detected Not Detected 11/20/2024 8:10 PM EDT [facility] Astrovirus Not Detected Not Detected 11/20/2024 8:10 PM EDT [facility] Norovirus GI/GII Not Detected Not Detected 11/20/2024 8:10 PM EDT [facility] Rotavirus A Not Detected Not Detected 11/20/2024 8:10 PM EDT [facility] Sapovirus Not Detected Not Detected 11/20/2024 8:10 PM EDT [facility] Cryptosporidium Not Detected Not Detected 11/20/2024 8:10 PM EDT [facility] Cyclospora cayetanensis Not Detected Not Detected 11/20/2024 8:10 PM EDT [facility] Entamoeba histolytica Not Detected Not Detected 11/20/2024 8:10 PM EDT [facility] Giardia lamblia Not Detected Not Detected 11/20/2024 8:10 PM EDT [facility] Enterotoxigenic E.coli (ETEC) Not Detected Not Detected 11/20/2024 8:10 PM EDT [facility] Enteropathogenic E.coli (EPEC) Not Detected Not Detected 11/20/2024 8:10 PM EDT [facility] Shiga toxin producing E.coli (STEC) stx1/stx2 Not Detected Not Detected 11/20/2024 8:10 PM EDT [facility] Shigella/Enteroinvas channing E.coli (EIEC) Not Detected Not Detected 11/20/2024 8:10 PM EDT [facility] Enteroaggregative E.coli (EAEC) Not Detected Not Detected 11/20/2024 8:10 PM EDT [facility] Stool Stool specimen / Unknown 11/20/2024 1:15 AM EDT 11/20/2024 1:41 AM EDT Debbie Beatty MD MICROBIOLOGY - GEN ERAL ORDERABLES [facility] [address] [place] [address], * (ABNORMAL) POCT Glucose, Fingerstick (11/19/2024 9:05 PM EDT) POC Glucose 132(H) 65 - 99 mg/dL 11/19/2024 9:11 PM EDT Comment:Notified RN Blood specimen / Unknown 11/19/2024 9:05 PM EDT 11/19/2024 9:11 PM EDT Cathy Koenig DO POINT OF CARE TEST O RDERABLES HOSPITAL LAB See Below * POCT Glucose, Fingerstick (11/19/2024 4:33 PM EDT) POC Glucose 96 65 - 99 mg/dL 11/19/2024 4:40 PM EDT Comment:Notified RN Blood specimen / Unknown 11/19/2024 4:33 PM EDT 11/19/2024 4:40 PM EDT Cathy Koenig DO POINT OF CARE TEST O RDERABLES HOSPITAL LAB See Below * US Venous Duplex Arm-Right (DVT) (11/19/2024 [...] Cathy Koenig DO IMG US ORDERABLES * (ABNORMAL) POCT Glucose, Fingerstick (11/19/2024 11:45 AM EDT) POC Glucose 120(H) 65 - 99 mg/dL 11/19/2024 11:51 AM EDT Comment:Notified RN Blood specimen / Unknown 11/19/2024 11:45 AM EDT 11/19/2024 11:51 AM EDT Cathy Koenig DO POINT OF CARE TEST O RDERABLES HOSPITAL LAB See Below * Potassium (11/19/2024 9:40 AM EDT) Potassium 4.9 3.4 - 5.3 mmol/L 11/19/2024 10:44 AM EDT [facility] Comment:Specimen hemolyzed. Results may be artifactually elevated. Blood Blood specimen / Unknown 11/19/2024 9:40 AM EDT 11/19/2024 10:02 AM EDT Cathy Koenig DO LAB BLOOD ORDERABLES Performing Organization Address [facility] [place] [address], * Phosphorus (Routine) (11/19/2024 9:40 AM EDT) Phosphorus 3.3 2.7 - 4.5 mg/dL 11/19/2024 10:44 AM EDT [facility] Blood Blood specimen / Unknown 11/19/2024 9:40 AM EDT 11/19/2024 10:02 AM EDT Cathy Koenig DO LAB BLOOD ORDERABLES Performing Organization Address [facility] [place] [address], * POCT Glucose, Fingerstick (11/19/2024 8:21 AM EDT) POC Glucose 82 65 - 99 mg/dL 11/19/2024 8:28 AM EDT Blood specimen / Unknown 11/19/2024 8:21 AM EDT 11/19/2024 8:28 AM EDT Cathy Koenig DO POINT OF CARE TEST O RDERABLES Performing Organization Address City/[facility] Co de Phone Number HOSPITAL LAB See Below * POCT Glucose, Fingerstick (11/19/2024 7:44 AM EDT) POC Glucose 69 65 - 99 mg/dL 11/19/2024 7:51 AM EDT Comment:Notified RN Blood specimen / Unknown 11/19/2024 7:44 AM EDT 11/19/2024 7:51 AM EDT Cathy Koenig DO POINT OF CARE TEST O RDERABLES Performing Organization Address City/[facility]/ZIP Co de Phone Number HOSPITAL LAB See Below * (ABNORMAL) Triglycerides (11/19/2024 5:14 AM EDT) Triglycerides 358(H) <150 mg/dL 11/19/2024 5:36 AM EDT [facility] Blood Blood specimen / Unknown 11/19/2024 5:14 AM EDT 11/19/2024 5:16 AM EDT Cathy Koenig DO LAB BLOOD ORDERABLES Performing Organization Address [facility] [place] [address], * (ABNORMAL) Lipase (11/19/2024 5:14 AM EDT) Lipase 137(H) 13 - 60 U/L 11/19/2024 5:36 AM EDT [facility] Blood Blood specimen / Unknown 11/19/2024 5:14 AM EDT 11/19/2024 5:16 AM EDT Dipti Tan APRN LAB BLOOD ORDERABLE S Performing Organization Address [facility] [place] [address], * (ABNORMAL) POCT Glucose, Fingerstick (11/18/2024 9:19 PM EDT) POC Glucose 156(H) 65 - 99 mg/dL 11/18/2024 9:25 PM EDT Blood specimen / Unknown 11/18/2024 9:19 PM EDT 11/18/2024 9:25 PM EDT Darrellr Aurea Koenig DO POINT OF CARE TEST O RDERABLES Performing Organization Address [facility] Phone Number [facility] LAB See Below * (ABNORMAL) POCT Glucose, Fingerstick (11/18/2024 11:54 AM EDT) POC Glucose 109(H) 65 - 99 mg/dL 11/18/2024 12:02 PM EDT Comment:Notified RN Blood specimen / Unknown 11/18/2024 11:54 AM EDT 11/18/2024 12:02 PM EDT Lisseth Kumar MD POINT OF CARE TEST ORDERABLES Performing Organization Address [facility] LAB See Below * (ABNORMAL) POCT Glucose, Fingerstick (11/18/2024 11:21 AM EDT) POC Glucose 105(H) 65 - 99 mg/dL 11/18/2024 11:28 AM EDT Comment:Notified RN Blood specimen / Unknown 11/18/2024 11:21 AM EDT 11/18/2024 11:28 AM EDT Lisseth Kumar MD POINT OF CARE TEST ORDERABLES Performing Organization Address [facility] LAB See Below * (ABNORMAL) POCT Glucose, Fingerstick (11/18/2024 10:07 AM EDT) POC Glucose 159(H) 65 - 99 mg/dL 11/18/2024 10:14 AM EDT Comment:Notified RN Blood specimen / Unknown 11/18/2024 10:07 AM EDT 11/18/2024 10:14 AM EDT Lisseth Kumar MD POINT OF CARE TEST ORDERABLES Performing Organization Address [facility] Phone Number [facility] LAB See Below * (ABNORMAL) POCT Glucose, Fingerstick (11/18/2024 9:02 AM EDT) POC Glucose 170(H) 65 - 99 mg/dL 11/18/2024 9:09 AM EDT Comment:Notified RN Blood specimen / Unknown 11/18/2024 9:02 AM EDT 11/18/2024 9:09 AM EDT Lisseth Kumar MD POINT OF CARE TEST ORDERABLES Performing Organization Address City/[facility] Phone Number [facility] LAB See Below * (ABNORMAL) POCT Glucose, Fingerstick (11/18/2024 8:02 AM EDT) POC Glucose 179(H) 65 - 99 mg/dL 11/18/2024 8:08 AM EDT Comment:Notified RN Blood specimen / Unknown 11/18/2024 8:02 AM EDT 11/18/2024 8:08 AM EDT Lisseth Kumar MD POINT OF CARE TEST ORDERABLES Performing Organization Address [facility] Number [facility] LAB See Below * (ABNORMAL) POCT Glucose, Fingerstick (11/18/2024 7:00 AM EDT) POC Glucose 168(H) 65 - 99 mg/dL 11/18/2024 7:07 AM EDT Comment:Notified RN Blood specimen / Unknown 11/18/2024 7:00 AM EDT 11/18/2024 7:07 AM EDT Lisseth Kumar MD POINT OF CARE TEST ORDERABLES Performing Organization Address [facility] Phone Number [facility] LAB See Below * (ABNORMAL) Phosphorus (Early AM) (11/18/2024 6:05 AM EDT) Phosphorus 2.1(L) 2.7 - 4.5 mg/dL 11/18/2024 6:33 AM EDT [facility] Blood Blood specimen / Unknown 11/18/2024 6:05 AM EDT 11/18/2024 6:11 AM EDT Sandra Knight JOSE LAB BLOOD ORDERABLES Performing Organization Address City/[facility]/ZIP Co de Phone Number [facility] [address] [place] [address], * Magnesium (Early AM) (11/18/2024 6:05 AM EDT) Magnesium 1.7 1.6 - 2.7 mg/dL 11/18/2024 6:33 AM EDT [facility] Blood Blood specimen / Unknown 11/18/2024 6:05 AM EDT 11/18/2024 6:11 AM EDT Sandra Knight JOSE LAB BLOOD ORDERABLES Performing Organization Address [facility] Co de Phone Number [address] * (ABNORMAL) Complete Blood Count WITHOUT Differential - Early AM (11/18/2024 6:05 AM EDT) White Blood Cell Count 11.2(H) 4.0 - 11.0 Thou/uL 11/18/2024 6:14 AM EDT [facility] Platelet Count 245 150 - 450 Thou/uL 11/18/2024 6:14 AM EDT [facility] Hemoglobin 12.6 11.7 - 15.7 g/dL 11/18/2024 6:14 AM EDT [facility] Hematocrit 37.6 35.0 - 47.0 % 11/18/2024 6:14 AM EDT [facility] Red Blood Cell Count 4.39 4.00 - 5.40 Mil/uL 11/18/2024 6:14 AM EDT [facility] MCV 86 80 - 100 fL 11/18/2024 6:14 AM EDT [facility] MCH 28.7 27.0 - 31.0 pg 11/18/2024 6:14 AM EDT [facility] MCHC 33.5 30.0 - 36.0 g/dL 11/18/2024 6:14 AM EDT [facility] RDW 14.0 11.5 - 14.5 % 11/18/2024 6:14 AM EDT [facility] MPV 10.9 7.5 - 12.5 fL 11/18/2024 6:14 AM EDT [facility] Blood Blood specimen / Unknown 11/18/2024 6:05 AM EDT 11/18/2024 6:11 AM EDT Sandra Knight JOSE LAB BLOOD ORDERABLES [facility] [address] [id number], * (ABNORMAL) Comprehensive Metabolic Panel (Early AM) (11/18/2024 6:05 AM EDT) Glucose 165(H) 65 - 99 mg/dL 11/18/2024 6:33 AM EDT [facility] Comment:Fasting: <100 mg/dL, Non-Fasting: <200 mg/dL (ADA 2004) Blood Urea Nitrogen (BUN) 7(L) 8 - 21 mg/dL 11/18/2024 6:33 AM T [facility] Creatinine 0.6 0.4 - 1.1 mg/dL 11/18/2024 6:33 AM T [facility] eGFR >90 >59 11/18/2024 6:33 AM T [facility] Comment:CKD-EPI (2020) in mL /min/1.73 sq meters. Sodium 133(L) 136 - 145 mmol/L 11/18/2024 6:33 AM EDT [facility] Potassium 3.3(L) 3.4 - 5.3 mmol/L 11/18/2024 6:33 AM EDT [facility] Chloride 101 98 - 107 mmol/L 11/18/2024 6:33 AM EDT [facility] CO2 24 22 - 33 mmol/L 11/18/2024 6:33 AM T [facility] Calcium 8.6(L) 8.7 - 10.5 mg/dL 11/18/2024 6:33 AM EDT [facility] Alkaline Phosphatase 78 32 - 122 U/L 11/18/2024 6:33 AM EDT [facility] Aspartate Aminotrans (AST) 22 10 - 50 U/L 11/18/2024 6:33 AM EDT [facility] Alanine Aminotrans (ALT) 13 10 - 50 U/L 11/18/2024 6:33 AM EDT [facility] Bilirubin, Total 0.4 0.2 - 1.0 mg/dL 11/18/2024 6:33 AM EDT [facility] Protein, Total 6.2(L) 6.3 - 8.3 g/dL 11/18/2024 6:33 AM EDT [facility] Albumin 3.4 3.4 - 4.8 g/dL 11/18/2024 6:33 AM EDT [facility] BUN/Creatinine Ratio 12 10.0 - 25.0 Ratio 11/18/2024 6:33 AM EDT [facility] Globulin 2.8 1.5 - 3.9 g/dL 11/18/2024 6:33 AM EDT [facility] Albumin/Globulin Ratio 1.2 1.0 - 3.0 Ratio 11/18/2024 6:33 AM EDT [facility] Anion Gap 8 7 - 17 11/18/2024 6:33 AM EDT [facility] Blood Blood specimen / Unknown 11/18/2024 6:05 AM EDT 11/18/2024 6:11 AM EDT Sandra Knight APRN LAB BLOOD ORDERABLES [facility] [address] * (ABNORMAL) Triglycerides (11/18/2024 6:05 AM EDT) Triglycerides 457(H) <150 mg/dL 11/18/2024 6:33 AM EDT [facility] Blood Blood specimen / Unknown 11/18/2024 6:05 AM EDT 11/18/2024 6:11 AM EDT Sandra Knight APRN LAB BLOOD ORDERABLES [address] [address], * (ABNORMAL) POCT Glucose, Fingerstick (11/18/2024 6:04 AM EDT) POC Glucose 160(H) 65 - 99 mg/dL 11/18/2024 6:11 AM EDT Comment:Notified RN Blood specimen / Unknown 11/18/2024 6:04 AM EDT 11/18/2024 6:11 AM EDT Lisseth Kumar MD POINT OF CARE TEST ORDERABLES Performing Organization Address [facility] Co de Phone Number [facility] LAB See Below * (ABNORMAL) POCT Glucose, Fingerstick (11/18/2024 5:08 AM EDT) POC Glucose 148(H) 65 - 99 mg/dL 11/18/2024 5:15 AM EDT Comment:Notified RN Blood specimen / Unknown 11/18/2024 5:08 AM EDT 11/18/2024 5:15 AM EDT Lisseth Kumar MD POINT OF CARE TEST ORDERABLES [facility] LAB See Below * (ABNORMAL) LACTATE DEHYDROGENASE (LDH) (11/18/2024 4:10 AM EDT) Lactate Dehydrogenase (LDH) 316(H) 120 - 260 U/L 11/18/2024 1:19 PM EDT [facility] 11/18/2024 4:10 AM EDT 11/18/2024 4:19 AM EDT Sandra Knight APRN LAB BLOOD ORDERABLES [facility] [address] [place] [address], [place] * (ABNORMAL) LIPASE (11/18/2024 4:10 AM EDT) Lipase 563(H) 13 - 60 U/L 11/18/2024 8:45 AM EDT [facility] 11/18/2024 4:10 AM EDT 11/18/2024 4:19 AM EDT Sandra Knight [employer] LAB BLOOD ORDERABLES Performing Organization Address [facility] Co de Phone Number [facility] [address] [place] [address], [place] * Potassium (11/18/2024 4:10 AM EDT) Potassium 3.6 3.4 - 5.3 mmol/L 11/18/2024 4:37 AM EDT [facility] Blood Blood specimen / Unknown 11/18/2024 4:10 AM EDT 11/18/2024 4:19 AM EDT Sandra Knight [employer] LAB BLOOD ORDERABLES Performing Organization Address [facility] Co de Phone Number [facility] [address] [place] [address], [place] * (ABNORMAL) Triglycerides (11/18/2024 4:10 AM EDT) Triglycerides 534(H) <150 mg/dL 11/18/2024 4:37 AM EDT [facility] Blood Blood specimen / Unknown 11/18/2024 4:10 AM EDT 11/18/2024 4:19 AM EDT Sandra Knight APRN LAB BLOOD ORDERABLES Performing Organization Address [facility] Co de Phone Number [facility] [address] [place] [address], [place] * (ABNORMAL) POCT Glucose, Fingerstick (11/18/2024 4:05 AM EDT) POC Glucose 162(H) 65 - 99 mg/dL 11/18/2024 4:12 AM EDT Comment:Notified RN Blood specimen / Unknown 11/18/2024 4:05 AM EDT 11/18/2024 4:12 AM EDT Lisseth Kumar MD POINT OF CARE TEST ORDERABLES Performing Organization Address [facility] LAB See Below * (ABNORMAL) POCT Glucose, Fingerstick (11/18/2024 3:11 AM EDT) POC Glucose 171(H) 65 - 99 mg/dL 11/18/2024 3:17 AM EDT Comment:Notified RN Blood specimen / Unknown 11/18/2024 3:11 AM EDT 11/18/2024 3:17 AM EDT Lisseth Kumar MD POINT OF CARE TEST ORDERABLES Performing Organization Address [facility] LAB See Below * (ABNORMAL) POCT Glucose, Fingerstick (11/18/2024 1:59 AM EDT) POC Glucose 151(H) 65 - 99 mg/dL 11/18/2024 2:08 AM EDT Comment:Notified RN Blood specimen / Unknown 11/18/2024 1:59 AM EDT 11/18/2024 2:08 AM EDT Lisseth Kumar MD POINT OF CARE TEST ORDERABLES Performing Organization Address [facility] LAB See Below * (ABNORMAL) POCT Glucose, Fingerstick (11/18/2024 1:03 AM EDT) POC Glucose 110(H) 65 - 99 mg/dL 11/18/2024 1:16 AM EDT Blood specimen / Unknown 11/18/2024 1:03 AM EDT 11/18/2024 1:16 AM EDT Lisseth Kumar MD POINT OF CARE TEST ORDERABLES Performing Organization Address [facility] Phone Number [facility] LAB See Below * (ABNORMAL) POCT Glucose, Fingerstick (11/18/2024 12:01 AM EDT) POC Glucose 139(H) 65 - 99 mg/dL 11/18/2024 12:08 AM EDT Comment:Notified RN Blood specimen / Unknown 11/18/2024 12:01 AM EDT 11/18/2024 12:08 AM EDT Lisseth Kumar MD POINT OF CARE TEST ORDERABLES Performing Organization Address [facility] LAB See Below * (ABNORMAL) POCT Glucose, Fingerstick (11/17/2024 11:01 PM EDT) POC Glucose 105(H) 65 - 99 mg/dL 11/17/2024 11:07 PM EDT Blood specimen / Unknown 11/17/2024 11:01 PM EDT 11/17/2024 11:07 PM EDT Lisseth Kumar MD POINT OF CARE TEST ORDERABLES Performing Organization Address [facility] Phone Number [facility] LAB See Below * (ABNORMAL) POCT Glucose, Fingerstick (11/17/2024 10:08 PM EDT) POC Glucose 111(H) 65 - 99 mg/dL 11/17/2024 10:15 PM EDT Comment:Notified RN Blood specimen / Unknown 11/17/2024 10:08 PM EDT 11/17/2024 10:15 PM EDT Lisseth Kumar MD POINT OF CARE TEST ORDERABLES Performing Organization Address [facility] Phone Number HOSPITAL LAB See Below * (ABNORMAL) POCT Glucose, Fingerstick (11/17/2024 9:02 PM EDT) POC Glucose 132(H) 65 - 99 mg/dL 11/17/2024 9:10 PM EDT Comment:Notified RN Blood specimen / Unknown 11/17/2024 9:02 PM EDT 11/17/2024 9:10 PM EDT Lisseth Kumar MD POINT OF CARE TEST ORDERABLES HOSPITAL LAB See Below * (ABNORMAL) POCT Glucose, Fingerstick (11/17/2024 8:25 PM EDT) POC Glucose 115(H) 65 - 99 mg/dL 11/17/2024 8:32 PM EDT Comment:Notified RN Blood specimen / Unknown 11/17/2024 8:25 PM EDT 11/17/2024 8:32 PM EDT Lisseth Kumar MD POINT OF CARE TEST ORDERABLES Performing Organization Address City/[facility]/ZIP Co de Phone Number [facility] LAB See Below * (ABNORMAL) Phosphorus (Routine) (11/17/2024 8:25 PM EDT) Phosphorus 2.2(L) 2.7 - 4.5 mg/dL 11/17/2024 9:16 PM EDT [facility] Blood Blood specimen / Unknown 11/17/2024 8:25 PM EDT 11/17/2024 8:31 PM EDT Sandra Knight APRN LAB BLOOD ORDERABLES Performing Organization Address City/[facility] Co de Phone Number [address] [address], * Magnesium (Routine) (11/17/2024 8:25 PM EDT) Magnesium 1.8 1.6 - 2.7 mg/dL 11/17/2024 9:16 PM EDT [facility] Blood Blood specimen / Unknown 11/17/2024 8:25 PM EDT 11/17/2024 8:31 PM EDT Sandra Knight APRN LAB BLOOD ORDERABLES [facility] [address] [place] [address], * (ABNORMAL) Basic Metabolic Panel (Routine) (11/17/2024 8:25 PM EDT) Glucose 111(H) 65 - 99 mg/dL 11/17/2024 9:16 PM EDT [facility] Comment:Fasting: <100 mg/dL, Non-Fasting: <200 mg/dL (ADA 2004) Blood Urea Nitrogen (BUN) 12 8 - 21 mg/dL 11/17/2024 9:16 PM EDT [facility] Creatinine 0.6 0.4 - 1.1 mg/dL 11/17/2024 9:16 PM EDT [facility] eGFR >90 >59 11/17/2024 9:16 PM EDT [facility] Comment:CKD-EPI (2020) in mL /min/1.73 sq meters. Sodium 138 136 - 145 mmol/L 11/17/2024 9:16 PM EDT [facility] Potassium 3.3(L) 3.4 - 5.3 mmol/L 11/17/2024 9:16 PM EDT [facility] Chloride 103 98 - 107 mmol/L 11/17/2024 9:16 PM EDT [facility] CO2 22 22 - 33 mmol/L 11/17/2024 9:16 PM EDT [facility] Anion Gap 13 7 - 17 11/17/2024 9:16 PM EDT [facility] Calcium 8.9 8.7 - 10.5 mg/dL 11/17/2024 9:16 PM EDT [facility] BUN/Creatinine Ratio 20 10.0 - 25.0 Ratio 11/17/2024 9:16 PM EDT [facility] Blood Blood specimen / Unknown 11/17/2024 8:25 PM EDT 11/17/2024 8:31 PM EDT Sandra Knight APRN LAB BLOOD ORDERABLES [facility] [address] [place] [address], * Complete Blood Count, WITHOUT Differential (routine) (11/17/2024 8:25 PM EDT) White Blood Cell Count 9.9 4.0 - 11.0 Thou/uL 11/17/2024 9:16 PM EDT [facility] Platelet Count 221 150 - 450 Thou/uL 11/17/2024 9:16 PM EDT [facility] Hemoglobin 13.0 11.7 - 15.7 g/dL 11/17/2024 9:16 PM EDT [facility] Hematocrit 40.5 35.0 - 47.0 % 11/17/2024 9:16 PM EDT [facility] Red Blood Cell Count 4.62 4.00 - 5.40 Mil/uL 11/17/2024 9:16 PM EDT [facility] MCV 88 80 - 100 fL 11/17/2024 9:16 PM EDT [facility] MCH 28.1 27.0 - 31.0 pg 11/17/2024 9:16 PM EDT [facility] MCHC 32.1 30.0 - 36.0 g/dL 11/17/2024 9:16 PM EDT [facility] RDW 14.2 11.5 - 14.5 % 11/17/2024 9:16 PM EDT [facility] MPV 11.7 7.5 - 12.5 fL 11/17/2024 9:16 PM EDT [facility] Blood Blood specimen / Unknown 11/17/2024 8:25 PM EDT 11/17/2024 8:31 PM EDT Sandra Knight [employer] LAB BLOOD ORDERABLES Performing Organization Address City/[facility]/ZIP Co de Phone Number [facility] [address] [place] [address], * (ABNORMAL) Triglycerides (11/17/2024 8:25 PM EDT) Triglycerides 743(H) <150 mg/dL 11/17/2024 9:16 PM EDT [facility] Blood Blood specimen / Unknown 11/17/2024 8:25 PM EDT 11/17/2024 8:31 PM EDT Sandra Knight [facility] LAB BLOOD ORDERABLES Performing Organization Address [facility] [place] [address], * (ABNORMAL) POCT Glucose, Fingerstick (11/17/2024 7:50 PM EDT) POC Glucose 165(H) 65 - 99 mg/dL 11/17/2024 8:00 PM EDT Comment:Notified RN Blood specimen / Unknown 11/17/2024 7:50 PM EDT 11/17/2024 7:57 PM EDT Lisseth Kumar MD POINT OF CARE TEST ORDERABLES Performing Organization Address [facility] Co de Phone Number HOSPITAL LAB See Below * (ABNORMAL) POCT Glucose, Fingerstick (11/17/2024 7:36 PM EDT) POC Glucose 39(LL) 65 - 99 mg/dL 11/17/2024 7:43 PM EDT Blood specimen / Unknown 11/17/2024 7:36 PM EDT 11/17/2024 7:43 PM EDT Lisseth Kumar MD POINT OF CARE TEST ORDERABLES Performing Organization Address [facility] Co de Phone Number HOSPITAL LAB See Below documented in this encounter Visit Diagnoses Diagnosis Severe acute pancreatitis- Primary Acute cystitis without hematuria Severe acute pancreatitis Mcdermott's esophagus with dysplasia Type 2 diabetes mellitus without complication, with long-term current use of insulin (HCC) Asthma Unspecified asthma Mcdermott's esophagus Coronary artery disease Coronary atherosclerosis of unspecified type of vessel, [place] or graft Diabetes mellitus (HCC) Type II or unspecified type diabetes mellitus without mention of complication, not stated as uncontrolled Hyperlipidemia Other and unspecified hyperlipidemia Hypertension Unspecified essential hypertension Pancreatic divisum Congenital anomalies of pancreas Swelling of right upper extremity Electrolyte abnormality Electrolyte and fluid disorders not elsewhere classified Diarrhea UTI (urinary tract infection) Urinary tract infection, site not specified documented in this encounter Admitting Diagnoses Diagnosis Severe acute pancreatitis documented in this encounter Administered Medications Inactive Administered Medications - up to 1 most recent administrations Medication Order MAR Action Action Date Dose Rate Site amLODIPine (NORVASC) tablet 10 mg 10 mg, Oral, Daily, First dose on Sat11/18/24 at 0900, Hold for SBP less than 100 mmHg. Notify provider if a dose is held. Given 11/23/2024 9:39 AM EDT 10 mg atorvastatin (LIPITOR) tablet 40 mg 40 mg, Oral, Daily, First dose on Sat11/18/24 at 0900 Given 11/24/2024 8:44 AM EDT 40 mg cefTRIAXone (ROCEPHIN) 1 g in sodium chloride-MBP (NS) 100 mL IVPB-MBP 1 g, Intravenous, at 200 mL/hr, Every 24 hours, First dose on 11/21/24 at 1530, All antimicrobials used at [facility] require an indication. Please complete the following documentation. Bacterial Infection Suspected, Type of Therapy: New Therapy, Indication: Urinary Tract Infection New Bag 11/22/2024 2:09 PM EDT 1 g 200 mL/hr cefTRIAXone (ROCEPHIN) 1 g in sodium chloride-MBP (NS) 100 mL IVPB-MBP 1 g, Intravenous, at 200 mL/hr, Every 24 hours, First dose (after last modification) on Sat11/23/24 at 1200, All antimicrobials used at [facility] require an indication. Please complete the following documentation. Bacterial Infection Suspected, Type of Therapy: New Therapy, Indication: Urinary Tract Infection New Bag 11/24/2024 12:07 PM EDT 1 g 200 mL/hr dextrose 10% (D10W) infusion 250 mL/hr, Intravenous, Continuous, Starting on Sat11/17/24 at 2030 New Bag 11/18/2024 10:46 AM EDT 250 mL/hr 250 mL/hr dextrose 5 % in lactated ringers (D5LR) infusion 75 mL/hr, Intravenous, Continuous, Starting on Amparo 11/19/24 at 0900 New Bag 11/21/2024 3:26 AM EDT 75 mL/hr 75 mL/hr dextrose 50 % solution 12.5 g 12.5 g, Intravenous, Every 15 min PRN, low blood sugar, between 50 and 69 mg/dL, Starting on Sat11/17/24 at 1952, For patient with IV access who is NPO or unable to swallow. See Hypoglycemia Management guideline. dextrose 50 % solution 12.5 g 12.5 g (25 mL), Intravenous, Once, On Amparo 11/19/24 at 0830, For 1 dose Given 11/19/2024 8:35 AM EDT 12.5 g dextrose 50 % solution 25 g 25 g, Intravenous, Every 15 min PRN, low blood sugar, less than 50 mg/dL, Starting on Sat11/17/24 at 1952, For patient with IV access who is NPO or unable to swallow. See Hypoglycemia Management guideline. Given 11/17/2024 7:40 PM EDT 25 g dextrose 50 % solution 25 g 25 g, Intravenous, Once PRN, low blood sugar, Starting on Sat11/17/24 at 1955, For 1 dose, If initial glucose is < 150 mg/dL diphenhydrAMINE (BENADRYL) capsule 25 mg 25 mg, Oral, Every 8 hours PRN, itching, Starting on 11/21/24 at 0923 Given 11/21/2024 9:29 AM EDT 25 mg enoxaparin (LOVENOX) syringe 40 mg 40 mg, Subcutaneous, Every 24 hours scheduled, First dose on Sat11/18/24 at 0900, Not for use in patients receiving dialysis. Given 11/24/2024 8:44 AM EDT 40 mg Abdominal Tissue fenofibrate (TRICOR) tablet 145 mg 145 mg, Oral, Daily, First dose on Sat11/18/24 at 0900 Given 11/24/2024 8:43 AM EDT 145 mg glucagon (GLUCAGEN) injection 1 mg 1 mg, Intramuscular, Daily PRN, low blood sugar, for Blood Glucose LESS than 70 mg/dL and NPO and no IV access, Starting on Sat11/17/24 at 1951, Glucagon may be repeated x 1 (for a total of 2 doses per hypoglycemic event) if patient remains hypoglycemic after first dose. Do not use with hepatic disease or alcohol intoxication. See Hypoglycemia Management guideline. Reconstitute vial with 1 mL sterile water for injection. glucose (GLUTOSE 15) 40 % oral gel 37.5 g 37.5 g (1 Tube), Oral, Every 15 min PRN, low blood sugar, between 50 and 69 mg/dL, Starting on Sat11/17/24 at 1951, Juice or soda is preferred for alert patients (4 oz juice or 6 oz soda). Use glucose gel for patients with fluid restriction. See Hypoglycemia Management guideline. Each 37.5 gram tube of glucose 40 % = 15 grams of glucose. glucose (GLUTOSE 15) 40 % oral gel 75 g 75 g (2 Tube), Oral, Every 15 min PRN, low blood sugar, less than 50 mg/dL, Starting on Sat11/17/24 at 1951, Juice or soda is preferred for alert patients (8 oz juice or 12 oz soda). Use glucose gel for patients with fluid restriction. See Hypoglycemia Management guideline. Each 37.5 gram tube of glucose 40 % = 15 grams of glucose. hydrALAZINE (APRESOLINE) injection 10 mg 10 mg, Intravenous, Once, On Sat11/17/24 at 2130, For 1 dose, Hold for SBP less than 100 mmHg. Notify provider if a dose is held. For IV bolus doses 5 - 20 mg, infuse undiluted over 5 minutes. Given 11/17/2024 9:36 PM EDT 10 mg hydrALAZINE (APRESOLINE) injection 10 mg 10 mg, Intravenous, Once, On Sat11/18/24 at 0030, For 1 dose, Hold for SBP less than 100 mmHg. Notify provider if a dose is held. For IV bolus doses 5 - 20 mg, infuse undiluted over 5 minutes. Given 11/18/2024 12:13 AM EDT 10 mg hydrALAZINE (APRESOLINE) injection 10 mg 10 mg, Intravenous, Once, On Sat11/18/24 at 0530, For 1 dose, Hold for SBP less than 100 mmHg. Notify provider if a dose is held. For IV bolus doses 5 - 20 mg, infuse undiluted over 5 minutes. Given 11/18/2024 6:04 AM EDT 10 mg hydrALAZINE (APRESOLINE) tablet 50 mg 50 mg, Oral, 3 times daily, First dose on Sat11/18/24 at 0100, Hold for SBP less than 100 mmHg. Notify provider if a dose is held. Given 11/24/2024 2:02 PM EDT 50 mg HYDROmorphone (DILAUDID) injection 0.5 mg 0.5 mg, Intravenous, Every 3 hours PRN, severe to excruciating pain 7-10, Starting on Sat11/17/24 at 2005, For 7 days Given 11/18/2024 3:58 PM EDT 0.5 mg HYDROmorphone (DILAUDID) injection 0.5 mg 0.5 mg, Intravenous, Once, On Sat11/20/24 at 0030, For 1 dose Given 11/20/2024 12:57 AM EDT 0.5 mg HYDROmorphone (DILAUDID) injection 0.5 mg 0.5 mg, Intravenous, Every 4 hours PRN, severe to excruciating pain 7-10, Starting on Sat11/20/24 at 0759, For 7 days Given 11/24/2024 4:42 AM EDT 0.5 mg HYDROmorphone (DILAUDID) injection 1 mg 1 mg, Intravenous, Every 3 hours PRN, severe to excruciating pain 7-10, Starting on Sat11/18/24 at 1844, For 145 hours Given 11/20/2024 6:07 AM EDT 1 mg insulin glargine (LANtus/SEMGLEE) 100 units/mL injection 10 Units 10 Units, Subcutaneous, Daily, First dose on Sat11/22/24 at 1130 Given 11/22/2024 11:59 AM EDT 10 Units Left Anterior Thigh insulin glargine (LANtus/SEMGLEE) 100 units/mL injection 15 Units 15 Units, Subcutaneous, 2 times daily, First dose on Sat11/19/24 at 0900, On hold since Sat11/22/2024 at 0808 until manually unheld Given 11/21/2024 8:24 PM EDT 15 Units Abdominal Tissue insulin glargine (LANtus/SEMGLEE) 100 units/mL injection 15 Units 15 Units, Subcutaneous, Daily, First dose (after last modification) on Sat11/23/24 at 0930 Given 11/23/2024 9:34 AM EDT 15 Units Abdominal Tissue insulin glargine (LANtus/SEMGLEE) 100 units/mL injection 15 Units 15 Units, Subcutaneous, 2 times daily, First dose (after last modification) on Sat11/23/24 at 2100 Given 11/24/2024 8:44 AM EDT 15 Units Abdominal Tissue insulin glargine (LANtus/SEMGLEE) 100 units/mL injection 40 Units 40 Units, Subcutaneous, 2 times daily, First dose on Sat11/18/24 at 1130 Given 11/18/2024 9:15 PM EDT 40 Units Abdominal Tissue insulin regular (HumuLIN-R) IV infusion 100 units in 100 mL NS STOCK 0.1 Units/kg/hr ? 102 kg (10.2 mL/hr), Intravenous, Continuous, Starting on Sat11/17/24 at 2030, * Do not titrate. Modification of order required for dose changes* Rate/Dose Verify 11/18/2024 10:00 AM EDT 0.1 Units/kg/hr 10.2 mL/hr isosorbide mononitrate (IMDUR) 24 hr tablet 30 mg 30 mg, Oral, Daily, First dose on Sat11/18/24 at 0900, Do not chew or crush. Scored tablets may be split. Hold for SBP less than 90 mmHg. Notify provider if a dose is held. Given 11/23/2024 9:39 AM EDT 30 mg labetalol (NORMODYNE,TRANDATE) injection 10 mg 10 mg, Intravenous, Once, On Sat11/18/24 at 0530, For 1 dose, Hold for HR less than 45 bpm or SBP less than 90 mmHg or bronchospasm develops. Notify provider if a dose is held. Infuse undiluted over 2 minutes. Given 11/18/2024 5:27 AM EDT 10 mg loperamide (IMODIUM A-D) capsule 2 mg 2 mg, Oral, Once, On Amparo 11/19/24 at 0030, For 1 dose, Maximum 16 mg per 24 hours Given 11/19/2024 12:26 AM EDT 2 mg magnesium sulfate IVPB 1 g in 100 mL D5W (premix) 1 g, Intravenous, Administer over 30 Minutes, Once, On Sat11/17/24 at 2200, For 1 dose New Bag 11/17/2024 10:22 PM EDT 1 g 200 mL/hr magnesium sulfate IVPB 2 g in 50 mL SW PREMIX 2 g, Intravenous, Administer over 60 Minutes, Once, On Sat11/18/24 at 0800, For 1 dose New Bag 11/18/2024 8:31 AM EDT 2 g 50 mL/hr metoPROLOL TARTRATE (LOPRESSOR) injection 5 mg 5 mg, Intravenous, Once, On Sat11/18/24 at 0300, For 1 dose, Hold for HR less than 45 bpm and/or SBP less than 90 mmHg. Notify provider if a dose is held. Infuse undiluted at 1 mg/minute. Given 11/18/2024 3:04 AM EDT 5 mg metoPROLOL TARTRATE (LOPRESSOR) tablet 100 mg 100 mg, Oral, Every 12 hours scheduled, First dose on Sat11/18/24 at 0900, Hold for HR less than 45 bpm and/or SBP less than 90 mmHg. Notify provider if a dose is held. Given 11/24/2024 8:44 AM EDT 100 mg ondansetron (ZOFRAN) injection 4 mg 4 mg, Intravenous, Every 6 hours PRN, nausea, vomiting, Starting on Sat11/17/24 at 2257 Given 11/19/2024 9:27 PM EDT 4 mg oxyCODONE (ROXICODONE) immediate release tablet 10 mg 10 mg, Oral, Every 8 hours PRN, moderate to moderately severe pain 4-6, severe to excruciating pain 7-10, Starting on Sat11/20/24 at 0759, For 7 days Given 11/24/2024 8:46 AM EDT 10 mg oxyCODONE (ROXICODONE) immediate release tablet 5 mg 5 mg, Oral, Once, On Sat11/24/24 at 1430, For 1 dose Given 11/24/2024 2:13 PM EDT 5 mg pancrelipase (CREON) 68569-12828 units capsule 12,000 Units 12,000 Units, Oral, 3 times daily with meals, First dose on Sat11/23/24 at 1700, Dose is in units of lipase. Each capsule contains: Lipase 12,000 units, protease 38,000 units, and amylase 60,000 units *Swallow capsule/tablet whole. Alternatively, the contents of the capsule/tablet may be sprinkled onto a tablespoon of applesauce and consume immediately without chewing* Given 11/24/2024 12:08 PM EDT 12,000 Units PANTOprazole (PROTONIX) EC tablet 40 mg 40 mg, Oral, Daily, First dose on Sat11/18/24 at 1330, *DO NOT CHEW OR CRUSH* Given 11/24/2024 8:44 AM EDT 40 mg potassium chloride (KLOR-CON M20) CR tablet 40 mEq 40 mEq, Oral, Every 1 hour, First dose on Sat11/18/24 at 0800, For 2 doses, Swallow tablets whole; do not crush, chew, or suck on tablet. Take with meals and a full glass of water or other liquid to minimize the risk of GI irritation. Swallow tablets whole; do not crush, chew, or suck on tablet. Take with meals and a full glass of water or other liquid to minimize the risk of GI irritation. Given 11/18/2024 8:30 AM EDT 40 mEq potassium chloride IVPB 10 mEq in 100 mL SW (premix) 10 mEq, Intravenous, at 100 mL/hr, Once, On Sat11/17/24 at 2200, For 1 dose New 11/17/2024 10:21 PM EDT 10 mEq 100 mL/hr potassium chloride IVPB 10 mEq in 100 mL SW (premix) 10 mEq, Intravenous, at 100 mL/hr, Once, On Sat11/17/24 at 2300, For 1 dose New 11/17/2024 11:20 PM EDT 10 mEq 100 mL/hr potassium chloride IVPB 10 mEq in 100 mL SW (premix) 10 mEq, Intravenous, at 100 mL/hr, Once, On Sat11/18/24 at 0000, For 1 dose New 11/18/2024 12:25 AM EDT 10 mEq 100 mL/hr POTASSIUM phosphate IVPB 15 mmol in 250 mL NS (premix) 15 mmol, Intravenous, at 83.3 mL/hr, Once, On Sat11/17/24 at 2200, For 1 dose New Bag 11/18/2024 1:34 AM EDT 15 mmol 83.3 mL/hr POTASSIUM phosphate IVPB 15 mmol in 250 mL NS (premix) 15 mmol, Intravenous, at 83.3 mL/hr, Once, On Sat11/18/24 at 0800, For 1 dose New Bag 11/18/2024 8:31 AM EDT 15 mmol 83.3 mL/hr documented in this encounter Active and Recently Administered Medications Times are shown in EDT. Scheduled Medication Order 11/22/2024 11/23/2024 11/24/2024 amLODIPine (NORVASC) tablet 10 mg 10 mg, Oral, Daily, First dose on Sat11/18/24 at 0900, Hold for SBP less than 100 mmHg. Notify provider if a dose is held. 0800 (Given - Provider: Melodie Crowell RN) 0939 (Given - Provider: Alesia Dominguez, RN) 0843 (Not Given - Provider: Sharron [place] RN - Reason: Patient/family refused) atorvastatin (LIPITOR) tablet 40 mg 40 mg, Oral, Daily, First dose on Sat11/18/24 at 0900 0800 (Given - Provider: Melodie Crowell, MAXI) 0939 (Given - Provider: Alesia Dominguez, MAXI) 0844 (Given - Provider: Sharron [place], MAXI) cefTRIAXone (ROCEPHIN) 1 g in sodium chloride-MBP (NS) 100 mL IVPB-MBP (CANCELED) 1 g, Intravenous, at 200 mL/hr, Every 24 hours, First dose on Sat11/21/24 at 1530, All antimicrobials used at [facility] require an indication. Please complete the following documentation. Bacterial Infection Suspected, Type of Therapy: New Therapy, Indication: Urinary Tract Infection 1409 (New Bag - Provider: Melodie Crowell, MAXI)1505 (Stopped - Provider: Melodie Crowell RN) cefTRIAXone (ROCEPHIN) 1 g in sodium chloride-MBP (NS) 100 mL IVPB-MBP 1 g, Intravenous, at 200 mL/hr, Every 24 hours, First dose (after last modification) on Sat11/23/24 at 1200, All antimicrobials used at [facility] require an indication. Please complete the following documentation. Bacterial Infection Suspected, Type of Therapy: New Therapy, Indication: Urinary Tract Infection 1332 (New Bag - Provider: Alesia Dominguez, MAXI)1618 (Stopped - Provider: Ronna Lomas RN) 1207 (New Bag - Provider: Sharron [place] RN)1256 (Stopped - Provider: Sharron [place] RN) enoxaparin (LOVENOX) syringe 40 mg 40 mg, Subcutaneous, Every 24 hours scheduled, First dose on Sat11/18/24 at 0900, Not for use in patients receiving dialysis. 0800 (Given - Provider: Melodie Crowell RN) 0937 (Given - Provider: Alesia Dominguez RN) 0844 (Given - Provider: Sharron [place] RN) fenofibrate (TRICOR) tablet 145 mg 145 mg, Oral, Daily, First dose on Sat11/18/24 at 0900 0800 (Given - Provider: Melodie Crowell RN) 0939 (Given - Provider: Alesia Dominguez RN) 0843 (Given - Provider: Sharron [place] RN) hydrALAZINE (APRESOLINE) tablet 50 mg 50 mg, Oral, 3 times daily, First dose on Sat11/18/24 at 0100, Hold for SBP less than 100 mmHg. Notify provider if a dose is held. 0800 (Given - Provider: Melodie Crowell RN)1409 (Given - Provider: Melodie Crowell RN)2240 (Given - Provider: Leann Alfredo RN) 0930 (Given - Provider: Alesia Dominguez, MAXI)1449 (Given - Provider: Alesia Dominguez, MAXI)2150 (Given - Provider: Ronna Lomas RN) 0843 (Given - Provider: Sharron [place] RN)1402 (Given - Provider: Sharron [place] RN) insulin glargine (LANtus/SEMGLEE) 100 units/mL injection 10 Units (CANCELED) 10 Units, Subcutaneous, Daily, First dose on Sat11/22/24 at 1130 1159 (Given - Provider: Melodie Crowell RN) 0934 (Not Given - Provider: Alesia Dominguez RN - Reason: Change in order) insulin glargine (LANtus/SEMGLEE) 100 units/mL injection 15 Units (CANCELED) 15 Units, Subcutaneous, Daily, First dose (after last modification) on Sat11/23/24 at 0930 0934 (Given - Provider: Alesia Dominguez, MAXI) insulin glargine (LANtus/SEMGLEE) 100 units/mL injection 15 Units 15 Units, Subcutaneous, 2 times daily, First dose (after last modification) on Sat11/23/24 at 2100 2030 (Given - Provider: Ronna Lomas, MAXI) 0844 (Given - Provider: Sharron [place] RN) isosorbide mononitrate (IMDUR) 24 hr tablet 30 mg 30 mg, Oral, Daily, First dose on Sat11/18/24 at 0900, Do not chew or crush. Scored tablets may be split. Hold for SBP less than 90 mmHg. Notify provider if a dose is held. 0759 (Given - Provider: Melodie Crowell RN) 0939 (Given - Provider: Alesia Dominguez, MAXI) 0844 (Not Given - Provider: Sharron [place] RN - Reason: Patient/family refused) metoPROLOL TARTRATE (LOPRESSOR) tablet 100 mg 100 mg, Oral, Every 12 hours scheduled, First dose on Sat11/18/24 at 0900, Hold for HR less than 45 bpm and/or SBP less than 90 mmHg. Notify provider if a dose is held. 0759 (Given - Provider: Melodie Crowell RN)2020 (Given - Provider: Leann Alfredo RN) 0939 (Given - Provider: Alesia Dominguez, MAXI)2030 (Given - Provider: Ronna Lomas RN) 0844 (Given - Provider: Sharron [place] RN) oxyCODONE (ROXICODONE) immediate release tablet 5 mg (COMPLETED) 5 mg, Oral, Once, On Sat11/24/24 at 1430, For 1 dose 1413 (Given - Provider: Sharron [place], MAXI) pancrelipase (CREON) [id number] units capsule 12,000 Units 12,000 Units, Oral, 3 times daily with meals, First dose on Sat11/23/24 at 1700, Dose is in units of lipase. Each capsule contains: Lipase 12,000 units, protease 38,000 units, and amylase 60,000 units *Swallow capsule/tablet whole. Alternatively, the contents of the capsule/tablet may be sprinkled onto a tablespoon of applesauce and consume immediately without chewing* 1704 (Given - Provider: Ronna Lomas, RN) 0843 (Given - Provider: Sharron [place], RN)1208 (Given - Provider: Sharron [place], RN)1700 (Due) PANTOprazole (PROTONIX) EC tablet 40 mg 40 mg, Oral, Daily, First dose on Sat11/18/24 at 1330, *DO NOT CHEW OR CRUSH* 0759 (Given - Provider: Melodie Crowell, MAXI) 0939 (Given - Provider: Alesia Dominguez, MAXI) 0844 (Given - Provider: Sharron [place], MAXI) PRN Medication Order 11/22/2024 11/23/2024 11/24/2024 bisacodyl (DULCOLAX) suppository 10 mg 10 mg, Rectal, Daily PRN, constipation, if no bowel movement by day 2, Starting on Sat11/17/24 at 1945 dextrose 50 % solution 12.5 g(Linked Group 1) 12.5 g, Intravenous, Every 15 min PRN, low blood sugar, between 50 and 69 mg/dL, Starting on Sat11/17/24 at 1952, For patient with IV access who is NPO or unable to swallow. See Hypoglycemia Management guideline. dextrose 50 % solution 25 g(Linked Group 1) 25 g, Intravenous, Every 15 min PRN, low blood sugar, less than 50 mg/dL, Starting on Sat11/17/24 at 1952, For patient with IV access who is NPO or unable to swallow. See Hypoglycemia Management guideline. dextrose 50 % solution 25 g 25 g, Intravenous, Once PRN, low blood sugar, Starting on Sat11/17/24 at 1955, For 1 dose, If initial glucose is < 150 mg/dL diphenhydrAMINE (BENADRYL) capsule 25 mg 25 mg, Oral, Every 8 hours PRN, itching, Starting on Sat11/21/24 at 0923 glucagon (GLUCAGEN) injection 1 mg(Linked Group 1) 1 mg, Intramuscular, Daily PRN, low blood sugar, for Blood Glucose LESS than 70 mg/dL and NPO and no IV access, Starting on Sat11/17/24 at 1952, Glucagon may be repeated x 1 (for a total of 2 doses per hypoglycemic event) if patient remains hypoglycemic after first dose. Do not use with hepatic disease or alcohol intoxication. See Hypoglycemia Management guideline. Reconstitute vial with 1 mL sterile water for injection. glucose (GLUTOSE 15) 40 % oral gel 37.5 g(Linked Group 1) 37.5 g (1 Tube), Oral, Every 15 min PRN, low blood sugar, between 50 and 69 mg/dL, Starting on Sat11/17/24 at 1952, Juice or soda is preferred for alert patients (4 oz juice or 6 oz soda). Use glucose gel for patients with fluid restriction. See Hypoglycemia Management guideline. Each 37.5 gram tube of glucose 40 % = 15 grams of glucose. glucose (GLUTOSE 15) 40 % oral gel 75 g(Linked Group 1) 75 g (2 Tube), Oral, Every 15 min PRN, low blood sugar, less than 50 mg/dL, Starting on Sat11/17/24 at 195, Juice or soda is preferred for alert patients (8 oz juice or 12 oz soda). Use glucose gel for patients with fluid restriction. See Hypoglycemia Management guideline. Each 37.5 gram tube of glucose 40 % = 15 grams of glucose. HYDROmorphone (DILAUDID) injection 0.5 mg 0.5 mg, Intravenous, Every 4 hours PRN, severe to excruciating pain 7-10, Starting on Sat11/20/24 at 0759, For 7 days 1828 (Given - Provider: Melodie Crowell RN) 0355 (Given - Provider: Leann Alfredo RN)1410 (Given - Provider: Alesia Dominguez RN)1900 (Given - Provider: Ronna Lomas RN)2306 (Given - Provider: Ronna Lomas RN) 0442 (Given - Provider: Nataliia Heredia RN) naloxone (NARCAN) 0.4 mg/mL injection 0.4 mg 0.4 mg, Intravenous, Every 5 min PRN, opioid reversal, respiratory depression, Starting on Sat11/17/24 at 1945, Notify provider if administered ondansetron (ZOFRAN) injection 4 mg 4 mg, Intravenous, Every 6 hours PRN, nausea, vomiting, Starting on Sat11/17/24 at 2257 oxyCODONE (ROXICODONE) immediate release tablet 10 mg 10 mg, Oral, Every 8 hours PRN, moderate to moderately severe pain 4-6, severe to excruciating pain 7-10, Starting on Sat11/20/24 at 0759, For 7 days 0509 (Given - Provider: Kathleen Santos, RN)1207 (Given - Provider: Melodie Crowell, RN)2350 (Given - Provider: Leann Alfredo, RN) 0936 (Given - Provider: Alesia Dominguez, RN)1703 (Given - Provider: Ronna Lomas, MAXI) 0846 (Given - Provider: Sharron Nelson RN) Linked Groups Order Group 1: glucose (GLUTOSE 15) 40 % oral gel 37.5 gJump to med 37.5 g (1 Tube), Oral, Every 15 min PRN, low blood sugar, between 50 and 69 mg/dL, Starting on Sat11/17/24 at 1951, Juice or soda is preferred for alert patients (4 oz juice or 6 oz soda). Use glucose gel for patients with fluid restriction. See Hypoglycemia Management guideline. Each 37.5 gram tube of glucose 40 % = 15 grams of glucose. Or glucose (GLUTOSE 15) 40 % oral gel 75 gJump to med 75 g (2 Tube), Oral, Every 15 min PRN, low blood sugar, less than 50 mg/dL, Starting on Sat11/17/24 at 1951, Juice or soda is preferred for alert patients (8 oz juice or 12 oz soda). Use glucose gel for patients with fluid restriction. See Hypoglycemia Management guideline. Each 37.5 gram tube of glucose 40 % = 15 grams of glucose. Or dextrose 50 % solution 12.5 gJump to med 12.5 g, Intravenous, Every 15 min PRN, low blood sugar, between 50 and 69 mg/dL, Starting on Sat11/17/24 at 1951, For patient with IV access who is NPO or unable to swallow. See Hypoglycemia Management guideline. Or dextrose 50 % solution 25 gJump to med 25 g, Intravenous, Every 15 min PRN, low blood sugar, less than 50 mg/dL, Starting on Sat11/17/24 at 1951, For patient with IV access who is NPO or unable to swallow. See Hypoglycemia Management guideline. Or glucagon (GLUCAGEN) injection 1 mgJump to med 1 mg, Intramuscular, Daily PRN, low blood sugar, for Blood Glucose LESS than 70 mg/dL and NPO and no IV access, Starting on Sat11/17/24 at 1952, Glucagon may be repeated x 1 (for a total of 2 doses per hypoglycemic event) if patient remains hypoglycemic after first dose. Do not use with hepatic disease or alcohol intoxication. See Hypoglycemia Management guideline. Reconstitute vial with 1 mL sterile water for injection. documented in this encounter Additional Health Concerns Infection Onset Date Last Indicated Resolved Time R/O Gastrointestinal Infection 11/20/2024 11/20/2024 11/20/2024 8:11 PM EDT R/O C. 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
--- OUTSIDE RECORDS SUMMARY | 2024-12-02 10:09 | XMS_ITS ---
Author Organization [facility] Address [address] [place] [address] Care Team Providers Care Data Capture Clerk Name Role Phone Armando Holloway MD Primary Care Provider Unavaila Saira Hurst Unavailable [phone] Riley Encounters Encounter Location Date Provider Diagnosis [facility] [address] [place] [address] 09/16/2024 Saira Willett Plan Of Treatment No Information Progress Notes * Rachana SOLIMANOscarOB:1955 ( 69 yo F)Acc No.[id number]:09/16/2024 Progress Note Patient:?Felecia SOLIMAN Provider:?Saira Willett DPM :1955???Age:69 Y???Sex:Female D ate:09/16/2024 Address:[address] [facility] Pcp:Armando Holloway MD Subjective: * Chief Complaints: [...] DPM Date:?0 09/16/2024 Generated for Clemencia guadalupe/Hunter/eTransmitting on:?12/02/2024 10:09 AM EDT
== END 2024-12-02 09:59 | disposition home or self-care (01) ==
LOC: HO.HMCHD 09:15
PROVIDERS: Visit Provider Internal Medicine
DX: K86.1 Other chronic pancreatitis (principal)

== ENCOUNTER 2024-12-02 10:04 | Outpatient (REF) | payer MEDICARE, OTHER, SELFPAY ==
[2024-12-02 13:15] LABS: Hematocrit 38.4 % (37.0-47.0); Hemoglobin 12.6 g/dl (12.0-16.0); Mean Corpuscular HGB Conc 32.8 g/dl (31.0-35.0); Mean Corpuscular Hemoglobin 28.6 pg (27.0-33.0); Mean Corpuscular Volume 87.1 fL (80.0-98.0); Mean Platelet Volume 11.7 fL (9.4-12.3); Platelet Count 328 X10*3/uL (160-400); Red Blood Count 4.41 X10*6/uL (4.20-5.50); Red Cell Distribution Width 13.8 % (11.0-16.0); White Blood Count 5.6 X10*3/uL (4.8-10.8)
[2024-12-02 13:39] LABS: Appearance Urine Clear; Color Urine Yellow; Glucose Urine UA 500 mg/dL (Negative); Leukocyte Esterase Urine Moderate (2+) (Negative); Nitrite Urine Negative (Negative); UMIC TRIGGER UA YES; Urine Blood Negative (Negative); Urine Ketones Negative (Negative); Urine Protein 100 (2+) mg/dL (Neg-Trace)
[2024-12-02 13:40] LABS: Estimated Average Glucose 232 mg/dL; Hemoglobin A1c % 9.7 % (<6.0)
[2024-12-02 13:46] LABS: Bacteria Urine None Seen (None Seen); Hyaline Casts Urine 0-2 /LPF (0-2); RBC Urine 0-2 /HPF (0-2); WBC Urine >50 /HPF (0-5)
[2024-12-02 14:19] LABS: Alanine Aminotransferase 15 U/L (0-31); Albumin Level 3.8 g/dL (3.5-5.0); Alkaline Phosphatase 91 U/L (39-117); Amylase 24 U/L (28-100); Anion Gap 8 (12-20); Aspartate Amino Transferase 19 U/L (5-31); Bilirubin Direct < 0.2 mg/dL (0.0-0.5); Bilirubin Total 0.2 mg/dL (0.0-1.0); Blood Urea Nitrogen 12 mg/dL (9-16); Calcium 9.9 mg/dL (8.4-10.2); Carbon Dioxide 29 mmol/L (22-29); Chloride 108 mmol/L (96-108); Cholesterol 134 mg/dL (<200); Estimated Glomerular Filt Rate > 60; Glucose Random 67 mg/dL (60-115); HDL Cholesterol 34 mg/dL (>40); LDL Cholesterol Calculated 26 mg/dL (<100); Lipase 29 U/L (8-78); Potassium 3.8 mmol/L (3.3-5.1); Sodium 141 mmol/L (135-145); Total Protein 7.2 g/dL (6.5-8.0); Triglycerides 372 mg/dL (<150)
[2024-12-02 14:34] LABS: Thyroid Stimulating Hormone 1.75 uIU/mL (0.32-4.0)
== END 2024-12-02 10:05 | disposition home or self-care (01) ==
LOC: HO.10HDL 10:04
PROVIDERS: Visit Provider Internal Medicine
DX: K86.1 Other chronic pancreatitis (principal); K85.90 Acute pancreatitis without necrosis or infection, unspecified
CPT/HCPCS: 36415; 80048; 80061; 80076; 81001; 82150; 83036; 83690; 84443; 85027; 99202

== ENCOUNTER 2024-12-07 16:32 | Outpatient (REF) | payer MEDICARE, OTHER, SELFPAY ==
[2024-12-07 17:29] LABS: Anion Gap 10 (12-20); Blood Urea Nitrogen 16 mg/dL (9-16); Carbon Dioxide 30 mmol/L (22-29); Chloride 107 mmol/L (96-108); Estimated Glomerular Filt Rate 57; Potassium 4.2 mmol/L (3.3-5.1); Sodium 143 mmol/L (135-145)
--- OUTSIDE RECORDS SUMMARY | 2024-12-07 18:04 | XMS_ITS | Clinical Summary ---
Author Organization [facility] Address [address] [place] [address] Care Team Providers Care Wolf Hunter Name Role Phone Pcp, No Primary Care [...] day. 15 mL 5 Active pancrelipase (CREON) [address]-[address] Particles capsuleIndicatio ns:Severe acute [...] need to establish care with PCP and emblem drawer in for outpatient management Assessment & Plan (11/21/2024 [...] EDT Hospital Encounter [facility] [address] [place] [address] Lisseth Kumar MD Shah, Darrellr [...] drink = 0.6 oz pur e alcohol) [facility] Utilities Answer Date Recorded In the past 12 months has th e electric, gas, oil, or water [employer] threatened to shut off services in your [...] any time in the past 12 m [facility], were you homeless or living in a [...] 1 anterolistheses seen at L4/5 and L5/S1. Vvby-np-sovqrepu degenerative change of the spine. There is [...] grade 1 anterolistheses seen at L4/5 andL5/S1. Dmlr-ti-yckapwzf degenerative change of the spine. There is [...] - 11.0 Thou/uL 11/23/2024 2:45 PM EDT [facility] Platelet Count 241 150 - 450 Thou/uL 11/23/2024 2:45 PM EDT [facility] Hemoglobin 11.2(L) 11.7 - 15.7 g/dL 11/23/2024 2:45 PM EDT [facility] Hematocrit 35.1 35.0 - 47.0 % 11/23/2024 2:45 PM EDT [facility] Red Blood Cell Count 3.96(L) 4.00 - 5.40 Mil/uL 11/23/2024 2:45 PM EDT [facility] MCV 89 80 - 100 fL 11/23/2024 2:45 PM EDT [facility] MCH 28.3 27.0 - 31.0 pg 11/23/2024 2:45 PM EDT [facility] MCHC 31.9 30.0 - 36.0 g/dL 11/23/2024 2:45 PM EDT [facility] RDW 14.0 11.5 - 14.5 % 11/23/2024 2:45 PM EDT [facility] MPV 11.6 7.5 - 12.5 fL 11/23/2024 2:45 PM EDT [facility] Blood Blood specimen / Unknown 11/23/2024 2:23 PM EDT 11/23/2024 2:30 PM EDT Cathy Koenig DO LAB BLOOD ORDERABLES Performing Organization Address City/[facility]/[place] [address], * Lipase (11/23/2024 2:23 PM EDT) Only the most recent of3 resultswithin the time period is included. Lipase 60 13 - 60 U/L 11/23/2024 3:05 PM EDT [facility] Blood Blood specimen / Unknown 11/23/2024 2:23 PM EDT 11/23/2024 2:30 PM EDT Cathy Koenig DO LAB BLOOD ORDERABLES Performing Organization Address City/[facility]/[place] [address], [place] * (ABNORMAL) Comprehensive Metabolic Panel (11/23/2024 2:23 PM EDT) Only the most recent of2 resultswithin the time period is included. Glucose 266(H) 65 - 99 mg/dL 11/23/2024 3:05 PM EDT [facility] Comment:Fasting: <100 mg/dL, Non-Fasting: <200 mg/dL (ADA 2004) Blood Urea Nitrogen (BUN) 9 8 - 21 mg/dL 11/23/2024 3:05 PM EDT [facility] Creatinine 0.8 0.4 - 1.1 mg/dL 11/23/2024 3:05 PM EDT [facility] eGFR 79 >59 11/23/2024 3:05 PM EDT [facility] Comment:CKD-EPI (2020) in mL /min/1.73 sq meters. Sodium 136 136 - 145 mmol/L 11/23/2024 3:05 PM EDT [facility] Potassium 3.9 3.4 - 5.3 mmol/L 11/23/2024 3:05 PM EDT [facility] Chloride 101 98 - 107 mmol/L 11/23/2024 3:05 PM EDT [facility] CO2 26 22 - 33 mmol/L 11/23/2024 3:[address] [facility] Calcium 9.5 8.7 - 10.5 mg/dL 11/23/2024 3:[address] [facility] Alkaline Phosphatase 70 32 - 122 U/L 11/23/2024 3:[address] [facility] Aspartate Aminotrans (AST) 27 10 - 50 U/L 11/23/2024 3:[address] [facility] Alanine Aminotrans (ALT) 14 10 - 50 U/L 11/23/2024 3:[address] [facility] Bilirubin, Total 0.4 0.2 - 1.0 mg/dL 11/23/2024 3:[address] [facility] Protein, Total 6.6 6.3 - 8.3 g/dL 11/23/2024 3:05 PM [facility] Albumin 3.5 3.4 - 4.8 g/dL 11/23/2024 3:[address] [facility] BUN/Creatinine Ratio 11 10.0 - 25.0 Ratio 11/23/2024 3:[address] [facility] Globulin 3.1 1.5 - 3.9 g/dL 11/23/2024 3:[address] [facility] Albumin/Globulin Ratio 1.1 1.0 - 3.0 Ratio 11/23/2024 3:05 PM EDT [facility] Anion Gap 9 7 - 17 11/23/2024 3:05 PM EDT [facility] Blood Blood specimen / Unknown 11/23/2024 2:23 PM EDT 11/23/2024 2:30 PM EDT Cathy Villar [facility] LAB BLOOD ORDERABLES Performing Organization Address City/[facility]/ZIP Co de Phone Number [facility] [address] [place] [address], * (ABNORMAL) Triglycerides (11/22/2024 5:00 AM EDT) Only the most recent of5 resultswithin the time period is included. Triglycerides 241(H) <150 mg/dL 11/22/2024 5:42 AM EDT [facility] Blood Blood specimen / Unknown 11/22/2024 5:00 AM EDT 11/22/2024 5:16 AM EDT Cathy Villar [facility] LAB BLOOD ORDERABLES Performing Organization Address [facility] [place] [address], * (ABNORMAL) Urine Culture (11/21/2024 2:05 PM EDT) Culture Klebsiella pneumoniae >=100,000 col/mL (A) 11/22/2024 12:51 PM EDT [facility] Urine Urine specimen obtained by [...] Koenig DO MICROBIOLOGY - GENER AL ORDERABLES [facility] [address] [place] [address], * (ABNORMAL) Urinalysis with Reflex to Microscopic (11/21/2024 2:05 PM EDT) Color Yellow 11/21/2024 2:43 PM EDT [facility] Clarity Turbid 11/21/2024 2:43 PM EDT [facility] Specific [place] 1.020 1.003 - 1.030 11/21/2024 2:43 PM EDT [facility] pH 6.0 5.0 - 8.0 11/21/2024 2:43 PM EDT [facility] Leukocyte Esterase Moderate(A) Negative 11/21/2024 2:43 PM EDT [facility] Nitrite Positive(A) Negative 11/21/2024 2:43 PM EDT [facility] Protein Moderate (100 mg/dL)(A) Negative 11/21/2024 2:43 PM EDT [facility] Glucose Negative Negative mg/dL 11/21/2024 2:43 PM EDT [facility] Ketones Negative Negative 11/21/2024 2:43 PM EDT [facility] Blood Trace(A) Negative 11/21/2024 2:43 PM EDT [facility] Bilirubin Negative Negative 11/21/2024 2:43 PM EDT [facility] Urine Urine specimen obtained by clean catch procedure / Unknown 11/21/2024 2:05 PM EDT 11/21/2024 2:16 PM EDT Darrellr H Koenig DO URINE ORDERABLES Performing Organization Address City/[facility]/ZIP Co de Phone Number [facility] [address] [place] [address], [place] * (ABNORMAL) Urine Microscopic Exam (11/21/2024 2:05 PM EDT) WBC >25(H) per hpf 11/21/2024 3:06 PM EDT [facility] RBC 8(H) per hpf 11/21/2024 3:06 PM EDT [facility] Bacteria Present(A) 11/21/2024 3:06 PM EDT [facility] Squamous Epithelial Cells 12 per hpf 11/21/2024 3:06 PM EDT [facility] Hyaline Casts 4 per lpf 11/21/2024 3:06 PM EDT [facility] WBC Clumps Present(A) 11/21/2024 3:06 PM EDT [facility] Crystals Absent 11/21/2024 3:06 PM EDT [facility] Urine specimen obtained by clean catch procedure / Unknown 11/21/2024 2:05 PM EDT 11/21/2024 2:16 PM EDT Darrellr Aurea Koenig DO URINE ORDERABLES Performing Organization Address City/[facility]/ZIP Co de Phone Number [facility] [address] [place] [address], [place] * GI PCR Panel (11/20/2024 1:15 AM EDT) Campylobacter Not Detected Not Detected 11/20/2024 8:10 PM EDT [facility] Plesiomonas shigelloides Not Detected Not Detected 11/20/2024 8:10 PM [facility] Salmonella Not Detected Not Detected 11/20/2024 8:10 PM [facility] Yersinia enterocolitica Not Detected Not Detected 11/20/2024 8:10 PM [facility] Vibrio Not Detected Not Detected 11/20/2024 8:10 PM [facility] Vibrio cholerae Not Detected Not Detected 11/20/2024 8:10 PM [facility] Adenovirus F 40/41 Not Detected Not Detected 11/20/2024 8:10 PM [facility] Astrovirus Not Detected Not Detected 11/20/2024 8:10 PM [facility] Norovirus GI/GII Not Detected Not Detected 11/20/2024 8:10 PM [facility] Rotavirus A Not Detected Not Detected 11/20/2024 8:10 PM [facility] Sapovirus Not Detected Not Detected 11/20/2024 8:10 PM [facility] Cryptosporidium Not Detected Not Detected 11/20/2024 8:10 PM [facility] Cyclospora cayetanensis Not Detected Not Detected 11/20/2024 8:10 PM [facility] Entamoeba histolytica Not Detected Not Detected 11/20/2024 8:10 PM [facility] Giardia lamblia Not Detected Not Detected 11/20/2024 8:10 PM [facility] Enterotoxigenic E.coli (ETEC) Not Detected Not Detected 11/20/2024 8:10 PM [facility] Enteropathogenic E.coli (EPEC) Not Detected Not Detected 11/20/2024 8:10 PM [facility] Shiga toxin producing E.coli (STEC) stx1/stx2 Not Detected Not Detected 11/20/2024 8:10 PM [facility] Shigella/Enteroinvas channing E.coli (EIEC) Not Detected Not Detected 11/20/2024 8:10 PM [facility] Enteroaggregative E.coli (EAEC) Not Detected Not Detected 11/20/2024 8:10 PM [facility] Stool Stool specimen / Unknown 11/20/2024 1:15 AM EDT 11/20/2024 1:41 AM EDT Debbie Beatty MD MICROBIOLOGY - GEN ERAL ORDERABLES Performing Organization Address [facility] Co de Phone Number [facility] [address] [facility] [address] [place] [address], [place] * C. difficile Toxin and NAP1 PCR with reflex to C. diff Ag/Toxin EIA (11/20/2024 1:15 AM EDT) C. difficile Toxin Gene Negative Negative 11/20/2024 5:54 PM EDT [facility] Comment:Performed by the Xpe rt C. difficile/Epi Assay NAP1 Presumptive Negative Presumptive Negative 11/20/2024 5:54 PM EDT [facility] Comment:Performed by the Xpe rt C. difficile/Epi Assay Stool specimen / Unknown 11/20/2024 1:15 AM EDT 11/20/2024 1:41 AM EDT Debbie Beatty MD MICROBIOLOGY - GEN ERAL ORDERABLES Performing Organization Address [facility] Co de Phone Number [facility] [address] [facility] [place] [address], [place] * [place] Venous Duplex Arm-Right (DVT) [...] - 5.3 mmol/L 11/19/2024 10:44 AM EDT [facility] Comment:Specimen hemolyzed. Results may be artifactually elevated. Blood Blood specimen / Unknown 11/19/2024 9:40 AM EDT 11/19/2024 10:02 AM EDT Cathy Koenig DO LAB BLOOD ORDERABLES Performing Organization Address [facility]/ZIP Co de Phone Number [address] [address], * Phosphorus (Routine) (11/19/2024 9:40 AM EDT) Only the most recent of3 resultswithin the time period is included. Phosphorus 3.3 2.7 - 4.5 mg/dL 11/19/2024 10:44 AM EDT [facility] Blood Blood specimen / Unknown 11/19/2024 9:40 AM EDT 11/19/2024 10:02 AM EDT Cathy Koenig DO LAB BLOOD ORDERABLES Performing Organization Address City/[facility]/[place] [address], * Magnesium (Early AM) (11/18/2024 6:05 AM EDT) Only the most recent of2 resultswithin the time period is included. Magnesium 1.7 1.6 - 2.7 mg/dL 11/18/2024 6:33 AM EDT [facility] Blood Blood specimen / Unknown 11/18/2024 6:05 AM EDT 11/18/2024 6:11 AM EDT Sandra Knight JOSE LAB BLOOD ORDERABLES Performing Organization Address [facility]/[place] [address], * (ABNORMAL) LACTATE DEHYDROGENASE (LDH) (11/18/2024 4:10 AM EDT) Lactate Dehydrogenase (LDH) 316(H) 120 - 260 U/L 11/18/2024 1:19 PM EDT [facility] 11/18/2024 4:1 0 AM EDT 11/18/2024 4:19 AM EDT Sandra Knight JUVENILE [employer] OFFICER LAB BLOOD ORDERABLES Performing Organization Address [facility]/[place] [address], * (ABNORMAL) Basic Metabolic Panel (Routine) (11/17/2024 8:25 PM EDT) Glucose 111(H) 65 - 99 mg/dL 11/17/2024 9:16 PM EDT [facility] Comment:Fasting: <100 mg/dL, Non-Fasting: <200 mg/dL (ADA 2005) Blood Urea Nitrogen (BUN) 12 8 - 21 mg/dL 11/17/2024 9:16 PM EDT [facility] Creatinine 0.6 0.4 - 1.1 mg/dL 11/17/2024 9:16 PM EDT [facility] eGFR >90 >59 11/17/2024 9:16 PM EDT [facility] Comment:CKD-EPI (2020) in mL /min/1.73 sq meters. Sodium 138 136 - 145 mmol/L 11/17/2024 9:16 PM EDT [facility] Potassium 3.3(L) 3.4 - 5.3 mmol/L 11/17/2024 9:16 PM EDT [facility] Chloride 103 98 - 107 mmol/L 11/17/2024 9:16 PM EDT [facility] CO2 22 22 - 33 mmol/L 11/17/2024 9:16 PM EDT [facility] Anion Gap 13 7 - 17 11/17/2024 9:16 PM EDT [facility] Calcium 8.9 8.7 - 10.5 mg/dL 11/17/2024 9:16 PM EDT [facility] BUN/Creatinine Ratio 20 10.0 - 25.0 Ratio 11/17/2024 9:16 PM EDT [facility] Blood Blood specimen / Unknown 11/17/2024 8:25 PM EDT 11/17/2024 8:31 PM EDT Sandra Knight APRN LAB BLOOD ORDERABLES Performing Organization Address City/State/[facility] Co de Phone Number [address] from Last 3 Months Advance Directives * Full Code (Latest Code Status on File) Date Activated Date Inactivated Comments 11/17/2024 7:48 PM Question Answer Comments Decision Thoroughly Discussed with: Patient Care Teams Wolf Hunter Relationship Specialty Start Date End Date Pcp, No PCP - General General Medicine 11/18/24
--- OUTSIDE RECORDS SUMMARY | 2024-12-07 18:04 | XMS_ITS ---
Author Organization [facility] Address [address] [place] [address] Care Team Providers Care Ekg Tech Name Role Phone Armando Holloway MD Primary Care Provider Unavaila Saira Hurst Unavailable [phone] Devan Kirkpatrick [phone] REASON FOR VISIT Transfer to Different Provider Encounters Encounter Location Date Provider Diagnosis [facility] [address] [place] [address] 09/16/2024 Devan Kirkpatrick Plan Of Treatment No Information Progress Notes * Rachana SOLIMANOscarOB:1955 ( 69 yo F)Acc No.[id number]:09/16/2024 Progress Note Patient:Felecia AVILES Provider:?Devan Kirkpatrick DPM :1955???Age:69 Y???Sex:Female D ate:09/16/2024 Address:[address] [place] Pcp:Armando Holloway MD Subjective: * Chief Complaints: [...] DPM Date:? 025 Generated for Clemencia guadalupe/Hunter/Everitting on:?12/07/2024 06:04 PM EDT
--- OUTSIDE RECORDS SUMMARY | 2024-12-07 18:04 | XMS_ITS ---
Author Organization [facility] Address [address] [place] [address] Care Team Providers Care Steward/Stewardess Chief Cargo Vessel Name Role Phone Armando Holloway MD Primary Care Provider Valeriano Dickerson [phone] REASON FOR VISIT Patient presents today for abdominal pain Encounters Encounter Location Date Provider Diagnosis [facility] [address] [place] [address] 10/27/2024 Valeriano Corona Plan Of Treatment Next Appt Details Provider Name:Valeriano Corona , 02/24/2025 01:40:00 PM, [address], [address], [place], [address], Progress Notes * CAROLEE SOLIMANNEDOB:1955 ( 69 yo F)Acc No.[id number]:10/27/2024 Progress Notes Patient:?JOURDAN NA Provider:?Valeriano Corona MD :1955???Age:69 Y???Sex:Female D ate:10/27/2024 Address:[address] [place] [address] Pcp:Armando Holloway MD Subjective: * Chief Complaints: [...] MD Date:? 025 Generated for Clemencia guadalupe/Hunter/Juliana on:?12/07/2024 06:04 PM EDT
--- OUTSIDE RECORDS SUMMARY | 2024-12-07 18:04 | XMS_ITS | Patient Health Record ---
Author Organization [facility] Address [address] [facility] [place] [address] Care Team Providers Care Hose Turner Name Role Phone Armando Holloway MD Primary Care Provider Saira Carranza Unavailable [phone] Devan Kirkpatrick Unavailable [phone] Allergies Allergen (clinical drug ingredient) Drug/Non Drug [...] Polyneuropathy due to type 2 diabetes mellitus (791618579) Type 2 diabetes mellitus with diabetic polyneuropathy (E11.42) Active confirmed Problem Polyneuropathy due to diabetes mellitus type I (240491343) Type 1 diabetes mellitus with diabetic polyneuropathy (E10.42) Active confirmed Problem 316186897 Lymphedema (I89.0) Active confirmed Vital Signs Blood pressure diastolic 70 mm Hg 03/25/2024 Height 5ft2in in 03/25/2024 Blood pressure systolic 190 mm Hg 03/25/2024 Weight 215 lbs 03/25/2024 BMI 39.32 kg/m2 03/25/2024 Encounters Encounter Location Date Provider Diagnosis [facility] [address] [place] [address] 03/25/2024 Devan Kirkpatrick Type 1 diabetes mellitus with diabetic polyneuropathy E10.42 ; Tinea unguium B35.1 ; Skin disease L98.9 ; Pain in right toe(s) M79.674 ; Pain in left toe(s) M79.675 ; Tinea pedis B35.3 ; Ingrowing nail L60.0 and Lymphedema I89.0 [facility] [address] [place] [address] 12/18/2023 [facility] [address] 03/25/2024 Devan Elmwood Assessments Encounter Date Diagnosis (ICD Code) Assessment [...] X ray : Foot, left 3V 12/19/2022 77700-VNDE SKIN LESIONS, 2 TO 4 08/17/20 21 45574-VEEF SKIN LESIONS, 2 TO 4 12/07/19 22 T3302-VVEAFVOB DYSTROPHIC NAILS ANY # H9475-GUHZUKNR DYSTROPHIC NAILS ANY # Insurance Providers Payer Name Payer Address Payer Phone Subscriber Number Group Number Insured Name Patient Relationship to Insured Coverage Start Date Coverage End Date Medicare National [employer] [address] [place] [address] [id number] Felecia Self Self - patient [facility] the [facility] [address] [place] [address] [id number] Felecia Self Self - patient is the insured Medical (General) History Medical History History ICD Code Anemia asthma Back,Hip,and Knee pain Broken bones Cancer covid-19 High blood pressure Reflux ( GERD) Stomach ulcer Measles Chicken pox type II diabetes Surgical History Surgery Date(Month/Year) hysterectomy, vaginal endoscopic spinetoplast of major papila gall bladder inguinal hernia repair cyst removal-uterus Hospitalization History Reason Date(Month/Year) [facility] pancreatitis 6 days 11/25/21 [facility] day stay 07/2021
--- OUTSIDE RECORDS SUMMARY | 2024-12-07 18:04 | XMS_ITS ---
Author Organization [facility] Address [address] [place] [address] Care Team Providers Care Inspector Missile Name Role Phone Armando Holloway MD Primary Care Provider UnavailSaira Swann Unavailable [phone] Devan Kirkpatrick Unavailable [phone] REASON FOR VISIT BUY Colig 10 Encounters Encounter Location Date Provider Diagnosis [facility] [address] [place] [address] 03/25/2024 Devan Kirkpatrick Plan Of Treatment No Information Progress Notes * Gavin SOLIMANOB:1955 ( 68 yo F)Acc No.[id number]:03/25/2024 Patient:?Clair Felecia :1955???Age:68 Y???Sex:Female Address:[place] [address] * true * Date:? Generated for Printi ng/Faramang/eTransmitting on:?12/07/2024 06:04 PM EDT
--- OUTSIDE RECORDS SUMMARY | 2024-12-07 18:04 | XMS_ITS ---
Author Organization [facility] Address [address] [place] [address] Care Team Providers Care Medical Records Specialist Name Role Phone Armando Holloway MD Primary Care Provider Valeriano Dickerson [phone] REASON FOR VISIT on voicemail refill Medications Medication SIG (Take, Route, Fr equency, Duration) Notes Start Date End Date Status Lansoprazole 30 MG 1 Orally Twice a day for 90 days 08/15/2023 Active Encounters Encounter Location Date Provider Diagnosis [facility] [address] [place] [address] 08/13/2023 Valeriano Corona Plan Of Treatment Medication Medication Name Sig Start Date Stop Date Notes Lansoprazole 30 MG 1 Orally Twice a day for 90 days 2022 Next Appt Details Provider Name:Valeriano Corona , 02/24/2025 01:40:00 PM, [address] [place] [address], [address], [address], Progress Notes * CAROLEE SOLIMANNEDOB:1955 ( 68 yo F)Acc No.[id number]:08/13/2023 Patient:?JOURDANCAROLEENE :1955???Age:68 Y???Sex:Female Address:[address] [place] [address] * Refills? Start Lansoprazole Capsule Delayed Release, 30 MG, Orally, 180, 1, Twice a day, 90 days, Refills=3 * true * Date:? Generated for Clemencia guadalupe/Hunter/Everitting on:?12/07/2024 06:04 PM EDT
--- OUTSIDE RECORDS SUMMARY | 2024-12-07 18:05 | XMS_ITS ---
Author Organization [facility] Address [address] [place] [address] Care Team Providers Care Janitorial Services Supervisor Name Role Phone Armando Holloway MD Primary Care Provider Valeriano Dickerson [phone] REASON FOR VISIT no call/no show Encounters Encounter Location Date Provider Diagnosis [facility] [address] [place] [address] 10/27/2024 Valeriano Corona Plan Of Treatment Next Appt Details Provider Name:Valeriano Corona , 02/24/2025 01:40:00 PM, [address], [address], [place], [address], Progress Notes * CAROLEE SOLIMANNEDOB:1955 ( 69 yo F)Acc No.[id number]:10/27/2024 Patient:?NA SOLIMAN :1955???Age:69 Y???Sex:Female Address:[address] [facility] [place] [address] * true * Date:? Generated for Printi collins/Hunter/eTransmitting on:?12/07/2024 06:04 PM EDT
--- OUTSIDE RECORDS SUMMARY | 2024-12-07 18:05 | XMS_ITS ---
Author Organization [facility] Address [address] [place] [address] Care Team Providers Care Education Coordinator Name Role Phone Armando Holloway MD Primary Care Provider Unavaila Saira Hurst Unavailable [phone] Rilye Encounters Encounter Location Date Provider Diagnosis [facility] [address] [place] [address] 09/16/2024 Saira Willett Plan Of Treatment No Information Progress Notes * Rachana SOLIMANOcsarOB:1955 ( 69 yo F)Acc No.[id number]:09/16/2024 Progress Note Patient:?Felecia SOLIMAN Provider:?Saira Willett DPM :1955???Age:69 Y???Sex:Female D ate:09/16/2024 Address:[address] [facility] Pcp:Armando Holloway MD Subjective: * Chief Complaints: [...] DPM Date:?0 09/16/2024 Generated for Clemencia guadalupe/Hunter/eTransmitting on:?12/07/2024 06:05 PM EDT
== END 2024-12-07 16:33 | disposition home or self-care (01) ==
LOC: HO.LAB 16:32
PROVIDERS: PCP Internal Medicine; Visit Provider Internal Medicine Nephrology
DX: I10 Essential (primary) hypertension (principal); E11.21 Type 2 diabetes mellitus with diabetic nephropathy
CPT/HCPCS: 36415; 80051; 82565; 84520

== ENCOUNTER 2024-12-09 11:29 | Outpatient (AMB) | payer MEDICARE, OTHER, SELFPAY ==
--- NOTE | 2024-12-09 11:37 | HO.NEPHOV_ITS ---
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 Required: No Accompanied by: Spouse Allergies gentamicin Allergy (Severe, Verified 12/09/24 11:41) Difficulty Breathing Iodinated Contrast Media Allergy (Severe, Verified 12/09/24 11:41) Difficulty Breathing, nausea and vomiting latex [LATEX] Allergy (Severe, Verified 12/09/24 11:41) Anaphylaxis morphine Allergy (Severe, Verified 12/09/24 11:41) Anaphylaxis Penicillins Allergy (Severe, Verified 12/09/24 11:41) stopped breathing as an shellfish derived [SHELLFISH DERIVED] Allergy (Severe, Verified 12/09/24 11:41) Difficulty Breathing, swelling vancomycin Allergy (Severe, Verified 12/09/24 11:41) Difficulty Breathing azithromycin Allergy (Unknown, Verified 12/09/24 11:41) Unknown erythromycin base Allergy (Unknown, Verified 12/09/24 11:41) Unknown esomeprazole Allergy (Unknown, Verified 12/09/24 11:41) Unknown pantoprazole Adverse Reaction (Mild, Verified 12/09/24 11:41) Nausea and Vomiting HPI Comments Details: Felecia, accompanied by her , was seen in follow up of hypertension. She has been a diabetic for long time. Her blood sugars had been uncontrolled,better. Her last A1c is over 11. She has history of recurrent pancreatitis likely from hypertriglyceridemia. She has history of congestive heart failure with a preserved ejection fraction. Couple years ago she had coronary angiogram which showed patent coronary arteries. She has not been very strict with low-sodium diet. She has been having pedal edema, more so in the evenings and in warm humid weather, but better. Her serum creatinine is stable baseline. She denies any nausea, vomiting, diarrhea, epistaxis, photosensitivity, joint swellings, hematemesis, melena, hematuria, orthostatic symptoms. She had been prescribed Farxiga in the past by her Client Services Analyst but she has not taken it at all as she was worried about its side effects ( pancreatitis). She has no new bone or back pain. She has no history of renal stones. She denies any chest pain, palpitation or syncope. 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 Diabetes type 2, uncontrolled Cervical cancer Other and unspecified hyperlipidemia Essential hypertension Vitamin D deficiency T2DM (type 2 diabetes mellitus) HLD (hyperlipidemia) HTN (hypertension) Accelerated essential hypertension Embolism Surgical History History of esophagogastroduodenoscopy (EGD) Hx of colonoscopy Hx of removal of cyst Hx of hernia repair Hx of cholecystectomy Hx of endoscopy Hx of hysterectomy Family History Father Diabetes Mother Diabetes Social History Household Members: Spouse Housing: House Do you presently have visiting nurse or other home services: No Alcohol intake: never Comment: sleeping Patient Tobacco Use Status: Former Tobacco user e-Cigarette/Vaping Use: Former Use service: No Current occupational status: employed Current occupation: [employer] Cognitive needs: No Hearing needs: No Vision needs: Yes (rx glasses) Review of Systems Const All systems reviewed & are unremarkable except as noted in HPI and below Physical Exam Const General: comfortable and no acute distress Orientation/consciousness: patient oriented x3 HEENT Head: Yes normocephalic Mouth: Normal oral and palatal mucosa present Eyes EOM: EOMs intact bilaterally Neck Neck: Yes supple Resp Auscultation: clear to auscultation bilaterally Cardio Jugular venous distension: no JVD Rate: regular rate GI Palpation (GI): Soft to palpation Auscultation: normal bowel sounds General: Yes no CVA tenderness Back/Spine/Pelvis Back: no CVA tenderness Skin General skin exam: no rashes or lesions noted Neuro General: patient oriented x3 and moves all extremities Extrem General: Yes no pedal edema Results Reviewed Nephrology Results: Hgb 12.6 g/dl (12.0-16.0) 12/02/24 WBC 5.6 X10*3/uL (4.8-10.8) 12/02/24 Plt Count 328 X10*3/uL (160-400) 12/02/24 Sodium 143 mmol/L (135-145) 12/07/24 Potassium 4.2 mmol/L (3.3-5.1) 12/07/24 Chloride 107 mmol/L (96-108) 12/07/24 Carbon Dioxide 30 mmol/L (22-29) H 12/07/24 BUN 16 mg/dL (9-16) 12/07/24 Creatinine 0.97 mg/dL (0.5-1.4) 12/07/24 Calcium 9.9 mg/dL (8.4-10.2) 12/02/24 Urine Protein 100 (2+) mg/dL (Neg-Trace) H 12/02/24 Assessment & Plan Assessment & Plan (1) Diabetic nephropathy: Code(s): E11.21 - Type 2 diabetes mellitus with diabetic nephropathy Category: Medical Qualifiers: Diabetes mellitus type: type 2 Qualified Code(s): E11.21 - Type 2 diabetes mellitus with diabetic nephropathy (2) HTN (hypertension): Code(s): I10 - Essential (primary) hypertension Category: Medical Qualifiers: Hypertension type: essential hypertension Qualified Code(s): I10 - Essential (primary) hypertension Plan Felecia has H/O CHARLES due to tubular injury which has been resolved . Her urine output is good. She has longstanding diabetic with H/O A1c over 11. She is on MICHAEL-inhibitor. 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 I e ncouraged to cut back salt in the diet. She is on amlodipine. She has diabetic nephropathy. I ordered follow-up renal functions. I discussed about SGLT2 i which she wants to think it over. I answered all her and her 's questions. Follow-up appointment given Orders: Orders Creatinine 6 Months E11. - Type 2 diabetes mellitus with diabetic nephropathy Blood Urea Nitrogen 6 Months E11.21 - Type 2 diabetes mellitus with diabetic nephropathy Electrolytes 6 Months E11.21 - Type 2 diabetes mellitus with diabetic nephropathy Protein Creatinine Ratio, Ur 6 Months E11. - Type 2 diabetes mellitus with diabetic nephropathy Coding Level of Care Code Est Pt Level 4 (52570) Diagnoses Diabetic nephropathy associated with type 2 diabetes mellitus E11. Diabetes mellitus type: type 2 Essential hypertension I10 Hypertension type: essential hypertension
[2024-12-09 11:41] VITALS: BP 130/80; PULSE 72; O2SAT 97; BMI 40.8
--- OUTSIDE RECORDS SUMMARY | 2024-12-09 14:05 | XMS_ITS | Patient Health Record ---
[facility] Address [address] [place] [address] Care Team Providers Care Slag Dumper Name Role Phone Armando Holloway MD Primary Care Provider Saira Carranza Unavailable [phone] Devan Kirkpatrick Unavailable [phone] Allergies Allergen (clinical drug ingredient) Drug/Non Drug [...] Polyneuropathy due to type 2 diabetes mellitus (499845390) Type 2 diabetes mellitus with diabetic polyneuropathy (E11.42) Active confirmed Problem Polyneuropathy due to diabetes mellitus type I (672858833) Type 1 diabetes mellitus with diabetic polyneuropathy (E10.42) Active confirmed Problem [id number] Lymphedema (I89.0) Active confirmed Vital Signs Blood pressure diastolic 70 mm Hg 03/25/2024 Height 5ft2in in 03/25/2024 Blood pressure systolic 190 mm Hg 03/25/2024 Weight 215 lbs 03/25/2024 BMI 39.32 kg/m2 03/25/2024 Encounters Encounter Location Date Provider Diagnosis [facility] [address] [place] [address] 03/25/2024 Devan Kirkpatrick Type 1 diabetes mellitus with diabetic polyneuropathy E10.42 ; Tinea unguium B35.1 ; Skin disease L98.9 ; Pain in right toe(s) M79.674 ; Pain in left toe(s) M79.675 ; Tinea pedis B35.3 ; Ingrowing nail L60.0 and Lymphedema I89.0 [facility] [address] [place] [address] 12/18/2023 [facility] [address] 03/25/2024 Devan Sutherlin Assessments Encounter Date Diagnosis (ICD Code) Assessment [...] X ray : Foot, left 3V 12/19/2022 [id number] SKIN LESIONS, 2 TO 4 08/17/20 21 [id number] SKIN LESIONS, 2 TO 4 12/07/19 22 [id number] DYSTROPHIC NAILS ANY # [id number] DYSTROPHIC NAILS ANY # Insurance Providers Payer Name Payer Address Payer Phone Subscriber Number Group Number Insured Name Patient Relationship to Insured Coverage Start Date Coverage End Date Medicare [employer] [address] [place] [address] [id number] Felecia Self Self - patient is the [facility] [address] [facility] [place] [address] [phone] [id number] Felecia Self Self - patient is the insured Medical (General) History Medical History History ICD Code Anemia asthma Back,Hip,and Knee pain Broken bones Cancer covid-19 High blood pressure Reflux ( GERD) Stomach ulcer Measles Chicken pox type II diabetes Surgical History Surgery Date(Month/Year) hysterectomy, vaginal endoscopic spinetoplast of major papila gall bladder inguinal hernia repair cyst removal-uterus Hospitalization History Reason Date(Month/Year) [facility] [place] pancreatitis 6 days 11/25/21 [facility] 5 day stay 07/2021
--- OUTSIDE RECORDS SUMMARY | 2024-12-09 14:05 | XMS_ITS ---
Author Organization [facility] Address [address] [place] [address] Care Team Providers Care Group Product Manager Name Role Phone Armando Holloway MD Primary Care Provider Unavaila Saira Hurst Unavailable [phone] Devan Kirkpatrick [phone] REASON FOR VISIT Transfer to Different Provider Encounters Encounter Location Date Provider Diagnosis [facility] [address] [place] [address] 09/16/2024 Devan Kirkpatrick Plan Of Treatment No Information Progress Notes * Rachana SOLIMANOscarOB:1955 ( 69 yo F)Acc No.[id number]:09/16/2024 Progress Note Patient:Felecia AVILES Provider:?Devan Kirkpatrick DPM :1955???Age:69 Y???Sex:Female D ate:09/16/2024 Address:[address], [place] Pcp:Armando Holloway MD Subjective: * Chief Complaints: [...] DPM Date:? 025 Generated for Clemencia guadalupe/Hunter/Everitting on:?12/09/2024 02:05 PM EDT
--- OUTSIDE RECORDS SUMMARY | 2024-12-09 14:06 | XMS_ITS | Clinical Summary ---
Author Organization [facility] Address [address] [place] [address] Care Team Providers Care Frame Maker Name Role Phone Pcp, No Primary Care [...] day. 15 mL 5 Active pancrelipase (CREON) 25495-00064 units Cap DR Particles capsuleIndicatio ns:Severe acute [...] Daily Amount: 30 mg 42 tablet 5 Active amLODIPine (NORVASC) 10 MG tablet Take [...] start before November 25, 2024. 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 No 11/18/2024 Sex and Gender [...] 1 anterolistheses seen at L4/5 and L5/S1. Cvfm-gn-zdyoxihc degenerative change of the spine. There is [...] grade 1 anterolistheses seen at L4/5 andL5/S1. Wqof-mz-[id number] degenerative change of the spine. There is [...] - 11.0 Thou/uL 11/23/2024 2:45 PM EDT [facility] Platelet Count 241 150 - 450 Thou/uL 11/23/2024 2:45 PM EDT [facility] Hemoglobin 11.2(L) 11.7 - 15.7 g/dL 11/23/2024 2:45 PM EDT [facility] Hematocrit 35.1 35.0 - 47.0 % 11/23/2024 2:45 PM EDT [facility] Red Blood Cell Count 3.96(L) 4.00 - 5.40 Mil/uL 11/23/2024 2:45 PM EDT [facility] MCV 89 80 - 100 fL 11/23/2024 2:45 PM EDT [facility] MCH 28.3 27.0 - 31.0 pg 11/23/2024 2:45 PM EDT [facility] MCHC 31.9 30.0 - 36.0 g/dL 11/23/2024 2:45 PM EDT [facility] RDW 14.0 11.5 - 14.5 % 11/23/2024 2:45 PM EDT [facility] MPV 11.6 7.5 - 12.5 fL 11/23/2024 2:45 PM EDT [facility] Blood Blood specimen / Unknown 11/23/2024 2:23 PM EDT 11/23/2024 2:30 PM EDT Cathy Aurea Arya GILMORE LAB BLOOD ORDERABLES Performing Organization Address City/[facility] [place] [address], * Lipase (11/23/2024 2:23 PM EDT) Only the most recent of3 resultswithin the time period is included. Lipase 60 13 - 60 U/L 11/23/2024 3:05 PM EDT [facility] Blood Blood specimen / Unknown 11/23/2024 2:23 PM EDT 11/23/2024 2:30 PM EDT Cathy Koenig DO LAB BLOOD ORDERABLES Performing Organization Address [facility] [place] [address], [place] * (ABNORMAL) Comprehensive Metabolic Panel (11/23/2024 2:23 PM EDT) Only the most recent of2 resultswithin the time period is included. Glucose 266(H) 65 - 99 mg/dL 11/23/2024 3:05 PM EDT [facility] Comment:Fasting: <100 mg/dL, Non-Fasting: <200 mg/dL (ADA 2005) Blood Urea Nitrogen (BUN) 9 8 - 21 mg/dL 11/23/2024 3:05 PM EDT [facility] Creatinine 0.8 0.4 - 1.1 mg/dL 11/23/2024 3:05 PM EDT [facility] eGFR 79 >59 11/23/2024 3:05 PM EDT [facility] Comment:CKD-EPI (2020) in mL /min/1.73 sq meters. Sodium 136 136 - 145 mmol/L 11/23/2024 3:05 PM EDT [facility] Potassium 3.9 3.4 - 5.3 mmol/L 11/23/2024 3:05 PM EDT [facility] Chloride 101 98 - 107 mmol/L 11/23/2024 3:05 PM EDT [facility] CO2 26 22 - 33 mmol/L 11/23/2024 3:05 PM EDT [facility] Calcium 9.5 8.7 - 10.5 mg/dL 11/23/2024 3:05 PM [facility] Alkaline Phosphatase 70 32 - 122 U/L 11/23/2024 3:05 PM [facility] Aspartate Aminotrans (AST) 27 10 - 50 U/L 11/23/2024 3:05 PM [facility] Alanine Aminotrans (ALT) 14 10 - 50 U/L 11/23/2024 3:05 PM [facility] Bilirubin, Total 0.4 0.2 - 1.0 mg/dL 11/23/2024 3:05 PM [facility] Protein, Total 6.6 6.3 - 8.3 g/dL 11/23/2024 3:05 PM EDT [facility] Albumin 3.5 3.4 - 4.8 g/dL 11/23/2024 3:05 PM [facility] BUN/Creatinine Ratio 11 10.0 - 25.0 Ratio 11/23/2024 3:[facility] Globulin 3.1 1.5 - 3.9 g/dL 11/23/2024 3:05 PM [facility] Albumin/Globulin Ratio 1.1 1.0 - 3.0 Ratio 11/23/2024 3:05 PM EDT [facility] Anion Gap 9 7 - 17 11/23/2024 3:05 PM EDT [facility] Blood Blood specimen / Unknown 11/23/2024 2:23 PM EDT 11/23/2024 2:30 PM EDT Cathy Villar [facility] LAB BLOOD ORDERABLES Performing Organization Address City/[facility]/ZIP Co de Phone Number [facility] [address] [place] [address], * (ABNORMAL) Triglycerides (11/22/2024 5:00 AM EDT) Only the most recent of5 resultswithin the time period is included. Triglycerides 241(H) <150 mg/dL 11/22/2024 5:42 AM EDT [facility] Blood Blood specimen / Unknown 11/22/2024 5:00 AM EDT 11/22/2024 5:16 AM EDT Cathy Villar [facility] LAB BLOOD ORDERABLES Performing Organization Address [facility]/[place] [address], * (ABNORMAL) Urine Culture (11/21/2024 2:05 PM EDT) Culture Klebsiella pneumoniae >=100,000 col/mL (A) 11/22/2024 12:51 PM EDT [facility] Urine Urine specimen obtained [...] Koenig DO MICROBIOLOGY - GENER AL ORDERABLES [facility] [id number] [place] [address], [place] * (ABNORMAL) Urinalysis with Reflex to Microscopic (11/21/2024 2:05 PM EDT) Color Yellow 11/21/2024 2:43 PM EDT [facility] Clarity Turbid 11/21/2024 2:43 PM EDT [facility] Specific Waldron 1.020 1.003 - 1.030 11/21/2024 2:43 PM EDT [facility] pH 6.0 5.0 - 8.0 11/21/2024 2:43 PM EDT [facility] Leukocyte Esterase Moderate(A) Negative 11/21/2024 2:43 PM EDT [facility] Nitrite Positive(A) Negative 11/21/2024 2:43 PM EDT [facility] Protein Moderate (100 mg/dL)(A) Negative 11/21/2024 2:43 PM EDT [facility] Glucose Negative Negative mg/dL 11/21/2024 2:43 PM EDT [facility] Ketones Negative Negative 11/21/2024 2:43 PM EDT [facility] Blood Trace(A) Negative 11/21/2024 2:43 PM EDT [facility] Bilirubin Negative Negative 11/21/2024 2:43 PM EDT [facility] Urine Urine specimen obtained by clean catch procedure / Unknown 11/21/2024 2:05 PM EDT 11/21/2024 2:16 PM EDT Darrellr Aurea Koenig DO URINE ORDERABLES Performing Organization Address [facility] Co de Phone Number [facility] [address] [place] [address], [place] * (ABNORMAL) Urine Microscopic Exam (11/21/2024 2:05 PM EDT) WBC >25(H) per hpf 11/21/2024 3:06 PM EDT [facility] RBC 8(H) per hpf 11/21/2024 3:06 PM EDT [facility] Bacteria Present(A) 11/21/2024 3:06 PM EDT [facility] Squamous Epithelial Cells 12 per hpf 11/21/2024 3:06 PM EDT [facility] Hyaline Casts 4 per lpf 11/21/2024 3:06 PM EDT [facility] WBC Clumps Present(A) 11/21/2024 3:06 PM EDT [facility] Crystals Absent 11/21/2024 3:06 PM EDT [facility] Urine specimen obtained by clean catch procedure / Unknown 11/21/2024 2:05 PM EDT 11/21/2024 2:16 PM EDT Israr H Koenig DO URINE ORDERABLES Performing Organization Address [facility]/ZIP Co de Phone Number [facility] [address] [place] [address], [place] * GI PCR Panel (11/20/2024 1:15 AM EDT) Campylobacter Not Detected Not Detected 11/20/2024 8:10 PM EDT [facility] Plesiomonas shigelloides Not Detected Not Detected 11/20/2024 8:10 PM EDT [facility] Salmonella Not Detected Not Detected 11/20/2024 8:10 PM [facility] Yersinia enterocolitica Not Detected Not Detected 11/20/2024 8:10 PM [facility] Vibrio Not Detected Not Detected 11/20/2024 8:10 PM [facility] Vibrio cholerae Not Detected Not Detected 11/20/2024 8:10 PM [facility] Adenovirus F 40/41 Not Detected Not Detected 11/20/2024 8:10 PM [facility] Astrovirus Not Detected Not Detected 11/20/2024 8:10 PM [facility] Norovirus GI/GII Not Detected Not Detected 11/20/2024 8:10 PM [facility] Rotavirus A Not Detected Not Detected 11/20/2024 8:10 PM [facility] Sapovirus Not Detected Not Detected 11/20/2024 8:10 PM [facility] Cryptosporidium Not Detected Not Detected 11/20/2024 8:10 PM [facility] Cyclospora cayetanensis Not Detected Not Detected 11/20/2024 8:10 PM [facility] Entamoeba histolytica Not Detected Not Detected 11/20/2024 8:10 PM [facility] Giardia lamblia Not Detected Not Detected 11/20/2024 8:10 PM [facility] Enterotoxigenic E.coli (ETEC) Not Detected Not Detected 11/20/2024 8:10 PM [facility] Enteropathogenic E.coli (EPEC) Not Detected Not Detected 11/20/2024 8:10 PM [facility] Shiga toxin producing E.coli (STEC) stx1/stx2 Not Detected Not Detected 11/20/2024 8:10 PM [facility] Shigella/Enteroinvas channing E.coli (EIEC) Not Detected Not Detected 11/20/2024 8:10 PM [facility] Enteroaggregative E.coli (EAEC) Not Detected Not Detected 11/20/2024 8:10 PM [facility] Stool Stool specimen / Unknown 11/20/2024 1:15 AM EDT 11/20/2024 1:41 AM EDT Debbie Beatty MD MICROBIOLOGY - GEN ERAL ORDERABLES Performing Organization Address [facility]/ZIP Co de Phone Number [facility] [address] [place] [address], [place] * C. difficile Toxin and NAP1 PCR with reflex to C. diff Ag/Toxin EIA (11/20/2024 1:15 AM EDT) C. difficile Toxin Gene Negative Negative 11/20/2024 5:54 PM EDT [facility] Comment:Performed by the Xpe rt C. difficile/Epi Assay NAP1 Presumptive Negative Presumptive Negative 11/20/2024 5:54 PM EDT [facility] Comment:Performed by the Xpe rt C. difficile/Epi Assay Stool specimen / Unknown 11/20/2024 1:15 AM EDT 11/20/2024 1:41 AM EDT Debbie Beatty MD MICROBIOLOGY - GEN ERAL ORDERABLES Performing Organization Address [facility] Co de Phone Number [facility] [address] [place] [address], [place] * [place] Venous Duplex Arm-Right (DVT) [...] - 5.3 mmol/L 11/19/2024 10:44 AM EDT [facility] Comment:Specimen hemolyzed. Results may be artifactually elevated. Blood Blood specimen / Unknown 11/19/2024 9:40 AM EDT 11/19/2024 10:02 AM EDT Cathy Koenig DO LAB BLOOD ORDERABLES Performing Organization Address [facility] Co de Phone Number [address] [address], [place] * Phosphorus (Routine) (11/19/2024 9:40 AM EDT) Only the most recent of3 resultswithin the time period is included. Phosphorus 3.3 2.7 - 4.5 mg/dL 11/19/2024 10:44 AM EDT [facility] Blood Blood specimen / Unknown 11/19/2024 9:40 AM EDT 11/19/2024 10:02 AM EDT Cathy Koenig DO LAB BLOOD ORDERABLES Performing Organization Address City/[facility] [place] [address], * Magnesium (Early AM) (11/18/2024 6:05 AM EDT) Only the most recent of2 resultswithin the time period is included. Magnesium 1.7 1.6 - 2.7 mg/dL 11/18/2024 6:33 AM EDT [facility] Blood Blood specimen / Unknown 11/18/2024 6:05 AM EDT 11/18/2024 6:11 AM EDT Sandra Knight APRN LAB BLOOD ORDERABLES [address] * (ABNORMAL) LACTATE DEHYDROGENASE (LDH) (11/18/2024 4:10 AM EDT) Lactate Dehydrogenase (LDH) 316(H) 120 - 260 U/L 11/18/2024 1:19 PM EDT [facility] 11/18/2024 4:10 AM EDT 11/18/2024 4:19 AM EDT Sandra Knight APR[place] [address], * (ABNORMAL) Basic Metabolic Panel (Routine) (11/17/2024 8:25 PM EDT) Glucose 111(H) 65 - 99 mg/dL 11/17/2024 9:16 PM EDT [facility] Comment:Fasting: <100 mg/dL, Non-Fasting: <200 mg/dL (ADA 2005) Blood Urea Nitrogen (BUN) 12 8 - 21 mg/dL 11/17/2024 9:16 PM EDT [facility] Creatinine 0.6 0.4 - 1.1 mg/dL 11/17/2024 9:16 PM EDT [facility] eGFR >90 >59 11/17/2024 9:16 PM EDT [facility] Comment:CKD-EPI (2020) in mL /min/1.73 sq meters. Sodium 138 136 - 145 mmol/L 11/17/2024 9:16 PM EDT [facility] Potassium 3.3(L) 3.4 - 5.3 mmol/L 11/17/2024 9:16 PM EDT [facility] Chloride 103 98 - 107 mmol/L 11/17/2024 9:16 PM EDT [facility] CO2 22 22 - 33 mmol/L 11/17/2024 9:16 PM EDT [facility] Anion Gap 13 7 - 17 11/17/2024 9:16 PM EDT [facility] Calcium 8.9 8.7 - 10.5 mg/dL 11/17/2024 9:16 PM EDT [facility] BUN/Creatinine Ratio 20 10.0 - 25.0 Ratio 11/17/2024 9:16 PM EDT [facility] Blood Blood specimen / Unknown 11/17/2024 8:25 PM EDT 11/17/2024 8:31 PM EDT Sandra Knight APRN LAB BLOOD ORDERABLES Performing Organization Address City/State/[facility] Co de Phone Number [facility] [address] from Last 3 Months Advance Directives * Full Code (Latest Code Status on File) Date Activated Date Inactivated Comments 11/17/2024 7:48 PM Question Answer Comments Decision Thoroughly Discussed with: Patient Care Teams Frame Maker Relationship Specialty Start Date End Date Pcp, No PCP - General General Medicine 11/18/24
--- OUTSIDE RECORDS SUMMARY | 2024-12-09 14:06 | XMS_ITS ---
Author Organization [facility] Address [address] [place] [address] Care Team Providers Care Registered Nurse Teacher Name Role Phone Armando Holloway MD Primary Care Provider UnavailSaira Swann Unavailable [phone] Devan Kirkpatrick Unavailable [phone] REASON FOR VISIT BUY Colig 10 Encounters Encounter Location Date Provider Diagnosis [facility] [address] [place] [address] 03/25/2024 Devan Kirkpatrick Plan Of Treatment No Information Progress Notes * Gavin SOLIMANOB:1955 ( 68 yo F)Acc No.[id number]:03/25/2024 Patient:?Clair Felecia :1955???Age:68 Y???Sex:Female Address:[place] [address] * true * Date:? Generated for Printi ng/Faramang/eTransmitting on:?12/09/2024 02:06 PM EDT
--- OUTSIDE RECORDS SUMMARY | 2024-12-09 14:06 | XMS_ITS ---
Author Organization [facility] Address [address] [place] [address] Care Team Providers Care Solar Resource Assessor Name Role Phone Armando Holloway MD Primary Care Provider Valeriano Dickerson [phone] REASON FOR VISIT Patient presents today for abdominal pain Encounters Encounter Location Date Provider Diagnosis [facility] [address] [place] [phone] 10/27/2024 Valeriano Corona Plan Of Treatment Next Appt Details Provider Name:Valeriano Corona , 02/24/2025 01:40:00 PM, [address], [address], [place], [address], Progress Notes * CAROLEE SOLIMANNEDOB:1955 ( 69 yo F)Acc No.[id number]:10/27/2024 Progress Notes Patient:?JOURDAN NA Provider:?Valeriano Corona MD :1955???Age:69 Y???Sex:Female D ate:10/27/2024 Address:[address] [place] [address] Pcp:Armando Holloway MD Subjective: * Chief Complaints: [...] MD Date:? 025 Generated for Clemencia guadalupe/Hunter/Juliana on:?12/09/2024 02:05 PM EDT
--- OUTSIDE RECORDS SUMMARY | 2024-12-09 14:06 | XMS_ITS ---
Author Organization [facility] Address [address] [facility] [address] [place] [address] Care Team Providers Care General Expeditor Name Role Phone Armando Holloway MD Primary Care Provider Valeriano Dickerson [phone] REASON FOR VISIT on voicemail refill Medications Medication SIG (Take, Route, Fr equency, Duration) Notes Start Date End Date Status Lansoprazole 30 MG 1 Orally Twice a day for 90 days 08/15/2023 Active Encounters Encounter Location Date Provider Diagnosis [facility] [address] [place] [phone] 08/13/2023 Valeriano Corona Plan Of Treatment Medication Medication Name Sig Start Date Stop Date Notes Lansoprazole 30 MG 1 Orally Twice a day for 90 days 2022 Next Appt Details Provider Name:Valeriano Corona , 02/24/2025 01:40:00 PM, [address] [place] [address], [address], [address], Progress Notes * CAROLEE SOLIMANNEDOB:1955 ( 68 yo F)Acc No.[id number]:08/13/2023 Patient:?JOURDANCAROLEENE :1955???Age:68 Y???Sex:Female Address:[address] [place] [address] * Refills? Start Lansoprazole Capsule Delayed Release, 30 MG, Orally, 180, 1, Twice a day, 90 days, Refills=3 * true * Date:? Generated for Clemencia guadalupe/Hunter/Everitting on:?12/09/2024 02:05 PM EDT
--- OUTSIDE RECORDS SUMMARY | 2024-12-09 14:07 | XMS_ITS ---
Author Organization [facility] Address [address] [place] [address] Care Team Providers Care Reformatory Attendant Name Role Phone Armando Holloway MD Primary Care Provider Unavaila Saira Hurst Unavailable [phone] Riley Encounters Encounter Location Date Provider Diagnosis [facility] [address] [place] [address] 09/16/2024 Saira Willett Plan Of Treatment No Information Progress Notes * Rachana SOLIMANOscarOB:1955 ( 69 yo F)Acc No.[id number]:09/16/2024 Progress Note Patient:?Felecia SOLIMAN Provider:?Saira Willett DPM :1955???Age:69 Y???Sex:Female D ate:09/16/2024 Address:[address] [facility] Pcp:Armando Holloway MD Subjective: * Chief Complaints: [...] DPM Date:?0 09/16/2024 Generated for Clemencia guadalupe/Hunter/eTransmitting on:?12/09/2024 02:06 PM EDT
--- OUTSIDE RECORDS SUMMARY | 2024-12-09 14:07 | XMS_ITS ---
Author Organization [facility] Address [address] [place] [address] Care Team Providers Care Forcer Maker Name Role Phone Armando Holloway MD Primary Care Provider Valeriano Dickerson [phone] REASON FOR VISIT no call/no show Encounters Encounter Location Date Provider Diagnosis [facility] [address] [place] [address] 10/27/2024 Valeriano Corona Plan Of Treatment Next Appt Details Provider Name:Valeriano Corona , 02/24/2025 01:40:00 PM, [address], [address], [place], [address], Progress Notes * CAROLEE SOLIMANNEDOB:1955 ( 69 yo F)Acc No.[id number]:10/27/2024 Patient:?NA SOLIMAN :1955???Age:69 Y???Sex:Female Address:[address] [facility] [place] [address] * true * Date:? Generated for Sheritai collins/Hunter/eTransmitting on:?12/09/2024 02:06 PM EDT
== END 2024-12-09 11:57 | disposition home or self-care (01) ==
LOC: HO.HKA 11:30
PROVIDERS: PCP Internal Medicine; Visit Provider Internal Medicine Nephrology
DX: E11.21 Type 2 diabetes mellitus with diabetic nephropathy (principal); I10 Essential (primary) hypertension
CPT/HCPCS: 99214

== ENCOUNTER → 2024-12-09 11:29 | Outpatient (BNVA) | payer MEDICARE, OTHER, SELFPAY | PROVIDERS: PCP Internal Medicine; Visit Provider Internal Medicine Nephrology | DX: E11.21 Type 2 diabetes mellitus with diabetic nephropathy (principal); I10 Essential (primary) hypertension | CPT/HCPCS: 99212 ==

== ENCOUNTER 2025-01-13 14:21 | Outpatient (AMB) | payer MEDICARE, OTHER, SELFPAY ==
[2025-01-13 14:05] VITALS: BP 140/82; PULSE 73; TEMP 36.4; O2SAT 98; BMI 41.1
--- NOTE | 2025-01-13 14:05 | A.OFFPC_ITS ---
Vital Signs 01/13/25 14:05 Height 5 ft 2 in Weight 225 lb BMI 41.1 BP 140/82 H Blood Pressure Location Rt brachial Position Sitting Pulse 73 Pulse Source Pulse Oximeter Temp 97.5 F Temp Source Axillary Pulse Oximetry (%) 98 Oxygen Delivery Method Room Air Intake Visit Reasons: Routine 6 week F/U - see comments Oxygen Therapy Teacher Required: No Accompanied by: Spouse Allergies gentamicin Allergy (Severe, Verified 01/13/25 14:05) Difficulty Breathing Iodinated Contrast Media Allergy (Severe, Verified 01/13/25 14:05) Difficulty Breathing, nausea and vomiting latex [LATEX] Allergy (Severe, Verified 01/13/25 14:05) Anaphylaxis morphine Allergy (Severe, Verified 01/13/25 14:05) Anaphylaxis Penicillins Allergy (Severe, Verified 01/13/25 14:05) stopped breathing as an shellfish derived [SHELLFISH DERIVED] Allergy (Severe, Verified 01/13/25 14:05) Difficulty Breathing, swelling vancomycin Allergy (Severe, Verified 01/13/25 14:05) Difficulty Breathing azithromycin Allergy (Unknown, Verified 01/13/25 14:05) Unknown erythromycin base Allergy (Unknown, Verified 01/13/25 14:05) Unknown esomeprazole Allergy (Unknown, Verified 01/13/25 14:05) Unknown pantoprazole Adverse Reaction (Mild, Verified 01/13/25 14:05) Nausea and Vomiting Tobacco use date assessed: 01/13/25 Fall risk assessment: 1 Fall in past year Last assessed Fall Risk: 01/13/25 Dental Screening Dental Screen Date: 01/13/25 Did you have a dental visit in the last 12 months?: Yes Did you have a dental problem in the last 6 months where you did not have access to dental care?: No PFSH Medical History Pancreatitis Chronic pancreatitis Hypertriglyceridemia Asthma Endometrial cancer Barretts esophagus GERD (gastroesophageal reflux disease) Pancreatic divisum CAD (coronary artery disease) halfway (current) use of insulin Diabetes type 2, uncontrolled Cervical cancer Other and unspecified hyperlipidemia Essential hypertension Vitamin D deficiency T2DM (type 2 diabetes mellitus) HLD (hyperlipidemia) HTN (hypertension) Accelerated essential hypertension Embolism Surgical History History of esophagogastroduodenoscopy (EGD) Hx of colonoscopy (~10/25/23) Hx of removal of cyst Hx of hernia repair Hx of cholecystectomy Hx of endoscopy Hx of hysterectomy Family History (Updated 01/13/25 @ 14:32 by Alyssa Landin MA) Father Diabetes Mother Diabetes Social History Household Members: Spouse Housing: House Do you presently have visiting nurse or other home services: No Alcohol intake: never Comment: sleeping Patient Tobacco Use Status: Former Tobacco user e-Cigarette/Vaping Use: Former Use service: No Current occupational status: employed Current occupation: [employer] Cognitive needs: No Hearing needs: No Vision needs: Yes (rx glasses) Questionnaire PHQ-9 Over the last 2 weeks, how often have you been bothered by any of the following problems? 1. Little interest or pleasure in doing things: not at all 2. Feeling down, depressed, or hopeless: not at all 3. Trouble falling or staying asleep, or sleeping too much: not at all 4. Feeling tired or having little energy: not at all 5. Poor appetite or overeating: not at all 6. Feeling bad about yourself - or that you are a failure or have let yourself or your family down: not at all 7. Trouble concentrating on things, such as reading the newspaper or watching television: not at all 8. Moving or speaking so slowly that other people could have noticed. Or the op posite - being so fidgety or restless that you have been moving around a lot more than usual: not at all 9. Thoughts that you would be better off or of hurting yourself in some way: not at all Total score: 0 Source: Developed by Drs. Valeriano Danielson, Dina Olivares, Johnson Pierre and colleagues, with an educational margy from [employer]. Thrive Questionnaire Date Thrive assessed: 01/13/25 I am a: Patient Within the past 12 months, did the food you bought not last and you didn't have the money to get more?: Never true Within the past 12 months, did you worry whether your food would run out before you got money to buy more?: Never true Do you have trouble paying for medicines?: No Do you have trouble getting transportation to medical appointments?: No Do you have trouble paying your heating and electricity bill?: No Do you have trouble taking care of your child, family member or friend?: No Do you have trouble with day-to-day activities such as bathing, preparing meals, shopping, managing finances, etc.?: No Are you currently unemployed and looking for a job?: No Are you interested in more education?: No THRIVE Score: 0 AUDIT C Alcohol Use Questionnaire (AUDIT-C) 1. How often do you have a drink containing alcohol?: Never 3. How often do you have six or more drinks on one occasion?: Never Total Score: 0 PARISH-7 AMB Questionnaire PARISH-7 Date PARISH - 7 assessed: 01/13/25 Feeling nervous, anxious, or on edge: 0 = Not at all Not being able to stop or control worryin = Not at all Worrying too much about different things: 0 = Not at all Trouble relaxin = Not at all Being so restless that it is hard to sit still: 0 = Not at all Becoming easily annoyed or irritable: 0 = Not at all Feeling afraid as if something awful might happen: 0 = Not at all Total PARISH-7 score (0-4 normal; 5-9 mild; 10-14 moderate; 15-21 severe): 0 Source: Developed by Drs. Valeriano Danielson, Dina Olivares, Johnson Pierre and colleagues, with an educational margy from [employer]. Physical exam (Primary Care) Vital Signs: Last Vital Signs Temp 97.5 F 01/13/25 14:05 Pulse 73 01/13/25 14:05 BP 140/82 H 01/13/25 14:05 Pulse Ox 98 01/13/25 14:05 Oxygen Delivery Method Room Air 01/13/25 14:05 BMI result Body Mass Index 41.1 Tobacco/Smoking Status: Tobacco use Status Tobacco use date assessed 01/13/25 01/13/25 14:06 Patient Tobacco Use Status Former Tobacco user 01/13/25 14:06 e-Cigarette/Vaping Use Former Use 01/13/25 14:06 PHQ-9: PHQ-9 Score PHQ-9: Total score 0 01/13/25 14:33 Thrive Assessment: Date of Thrive Assessment Date Thrive assessed 01/13/25 01/13/25 14:33 Coding Level of Care Code Est Pt Level 4 (69679) Complex EM visit Add On G2211 Diagnoses Diabetes E11.9 Pancreatitis K85.90 Assessment & Plan Assessment & Plan (1) Diabetes: Code(s): E11.9 - Type 2 diabetes mellitus without complications Category: Medical Plan: Continue the insulin at same dosage. (2) Pancreatitis: Comment: 2021 Code(s): K85.90 - Acute pancreatitis without necrosis or infection, unspecified Category: Medical Plan: Patient was advised to decrease oxycodone intake to twice a day She has agreed. Plan History of Present Illness The patient is a 69-year-old female presenting with chronic pain and recent falls. She has a history of pancreatitis, which has shown improvement, though she still experiences pain, especially when eating. The pain is managed with oxycodone, which she often takes more frequently than preferred due to ongoing discomfort. The patient aims to reduce her oxycodone intake to twice a day to manage addiction risks after discontinuing a previously used fentanyl patch. Falls were reported, notably falling from bed during sleep, leading to persistent elbow pain without signs of fracture, possibly indicating mild musculoskeletal injury. The patient is under insulin therapy for diabetes, with occasional hyperglycemia, notably a spike to 430 mg/dL, and reports concerns over potential changes in her insulin therapy due to insurance limitations. Social History - Current pain management involves oxycodone - History of using fentanyl patch for pain management - Experiences challenges with insurance coverage for diabetes medication Review of Systems - Musculoskeletal: Reports pain in the elbow and right side after falls - Gastrointestinal: Reports abdominal pain with eating - Endocrine: Reports episodes of elevated blood sugars Physical Exam General: Cooperative and healthy appearing Nutritional Appearance: Well nourished Orientation/consciousness: Patient oriented x3 Limitations: No limitations Head: Normal to inspection General: Appearance normal, both eyes and all related structures Neck: Normal visual inspection Chest: Normal palpation of entire chest wall Respiratory: Breath sounds not assessed due to recent camp meeting. ormal respiratory effort Neurology: Patient oriented x3, reports falling twice, with pain in the elbow and side, but no apparent fractures. Results Plan 1. Chronic Pancreatitis - Monitor and adjust dietary plan to alleviate pain symptoms - Gradually reduce oxycodone dosage to twice daily 2. Recent Falls And Associated Pain - Implement safety modifications at home to prevent falls - Manage elbow pain; monitor for changes in symptoms 3. Diabetes Mellitus - Confirm with insurance for continued insulin therapy - Monitor glucose levels closely and adjust treatment accordingly 4. Oxycodone Use - Reduce oxycodone dosage to help prevent dependence - Highlight the importance of tracking usage Discussion Notes I discussed with the patient the desire to reduce her oxycodone intake to a maximum of twice daily due to its habit-forming nature. We also reviewed her recent episodes of hyperglycemia and discussed the importance of contacting her insurance provider to verify future insulin options. Preventative measures for falls were also highlighted, given her recent incidents. I reinforced the need for regular blood sugar monitoring and the safe management of pain to avoid potential dependency issues. Patient Instructions - Take oxycodone no more than twice a day; track days when more is needed - Monitor blood sugar levels daily and record readings - Contact insurance for insulin coverage options - Implement safety precautions at home to prevent future falls - Follow up if pain or blood sugars do not improve
--- OUTSIDE RECORDS SUMMARY | 2025-01-13 15:34 | XMS_ITS ---
Author Organization [facility] Address [address] [place] [address] Care Team Providers Care Third Mate Name Role Phone Armando Holloway MD Primary Care Provider UnavailSaira Swann Unavailable [phone] Devan Kirkpatrick Unavailable [phone] REASON FOR VISIT BUY Colig 10 Encounters Encounter Location Date Provider Diagnosis [facility] [address] [place] [address] 03/25/2024 Devan Kirkpatrick Plan Of Treatment No Information Progress Notes * Gavin SOLIMANOB:1955 ( 68 yo F)Acc No.[id number]:03/25/2024 Patient:?ClairRachanane :1955???Age:68 Y???Sex:Female Address:[place] [address] * true * Date:? Generated for Printi ng/Faramang/eTransmitting on:?01/13/2025 03:34 PM EDT
--- OUTSIDE RECORDS SUMMARY | 2025-01-13 15:34 | XMS_ITS | Patient Health Record ---
Author Organization [facility] Address [address] [place] [address] Care Team Providers Care Concrete Swimming Pool Installer Name Role Phone Armando Holloway MD Primary Care Provider Valeriano Dickerson [phone] Allergies Allergen (clinical drug ingredient) Drug/Non Drug [...] morphine Morphine Sulfate Unknown Drug Allergy Active Reason For Referral No Information Medications Medication SIG (Take, Route, Frequency, Duration) Notes Start Date End Date Status Lansoprazole 30 MG TAKE ONE CAPSULE BY MOUTH TWICE A DAY for 90 Active Albuterol Sulfate HFA Active Levemir FlexTouch Ac [...] TIMES A DAY Subcutaneous for 30 Active Immunizations Vaccine Route Administration Date Status Comme nts Influenza Unknown 06/03/2019 Refused Problems Problem Type SNOMED Code ICD Code Onset Dates Problem Status W/U Status Risk Notes Problem 970521309 Encounter for screening for malignant neoplasm of colon (Z12.11) Active confirmed Problem Diverticular disease of colon (843052607) Diverticulosis of large intestine without perforation or abscess without bleeding (K57.30) Active confirmed Problem 427891040 Other chronic pancreatitis (K86.1) Active confirmed Problem Screening for malignant neoplasm of rectum (655490804) Encounter for screening for malignant neoplasm of rectum (Z12.12) Active confirmed Problem 973908614 Gastroesophageal reflux disease without esophagitis (K21.9) Active confirmed Problem 731303815 Barretts esophag us without dysplasia (K22.70) Active confirmed Problem 935410885 Gastroesophageal reflux disease, esophagitis presence not specified (K21.9) Active confirmed Problem 697637057 Family history o f colon cancer (Z80.0) Active confirmed Problem 83939944 Constipation, unspecified constipation type (K59.00) Active confirmed Problem Gastritis (1849100) Gastritis (K29.70) Active c onfirmed Problem Ro esophagus (837345712) 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) Active confirmed Problem Gastroesophageal reflux disease (864712214) Esophageal reflux disease (K21.9) Active confirmed Problem 55288942 Hypertension, unspecified type (I10) Active confirmed Problem 08990325 Esophageal dysphagia (R13.10) Active confirmed Encounters Encounter Location Date Provider Diagnosis [facility] [address] [facility] [address] [place] [address] 10/27/2024 Valeriano Corona Plan Of Treatment Pending Test Test Name Order Date IgG SUBCLASSES PANEL, SERUM 04/24/2012 IgG SUBCLASSES PANEL, SERUM 06/25/2012 FLUOR. ANTINUCLEAR AB SCREEN (YULISSA) 04/09 FLUOR. ANTINUCLEAR AB SCREEN (YULISSA) 06/09 Future Test Test Name Order Date UPPER GI ENDOSCOPY 02/13/2012 UPPER GI ENDOSCOPY 11/30/2016 COLONOSCOPY 11/30/2016 UPPER GI ENDOSCOPY BALLOOON DILATION OF ESOPH 06/03/2019 UPPER GI ENDOSCOPY 03/07/2022 COLONOSCOPY 03/07/2022 UPPER GI ENDOSCOPY 04/12/2023 COLONOSCOPY 04/12/2023 Next Appt Details Provider Name:Valeriano Corona , 02/24/2025 01:40:00 PM, [address], [address], [place], [address], Insurance Providers Payer Name Payer Address Payer Phone Subscriber Number Group Number Insured Name Patient Relationship to Insured Coverage Start Date Coverage End Date MEDICARE OF [place] [address] [place] [address] [phone] [id number] NA SOLIMAN Self - patient is the insured [facility] [address] [place] [phone] [id number] NA SOLIMAN Self - patient is the insured Medical (General) History Medical History History ICD Code GERD Ro's [...] HEMA Pulmonary embolus Endometrial cancer-s/p Hysterectomy Denies LA,CVA,renal disease Hypertriglyceridemia She had negative colonoscopies in [...] relation to her pancreas divisum-Dr. Aggarwal at [facility] Surgical minor sphincteropla sty to try to treat pancreatitis in relation to her pancreas divisum-at [facility] with Dr. Clemente Cholescystectomy 11/1997 Right knee Wrist
--- OUTSIDE RECORDS SUMMARY | 2025-01-13 15:34 | XMS_ITS ---
Author Organization [facility] Address [address] [place] [address] Care Team Providers Care Venetian Blind Cleaner Name Role Phone Armando Holloway MD Primary Care Provider Valeriano Dickerson [phone] REASON FOR VISIT no call/no show Encounters Encounter Location Date Provider Diagnosis [facility] [address] [place] [address] 10/27/2024 Valeriano Corona Plan Of Treatment Next Appt Details Provider Name:Valeriano Corona , 02/24/2025 01:40:00 PM, [address], [address], [place], [address], Progress Notes * CAROLEE SOLIMANNEDOB:1955 ( 69 yo F)Acc No.[id number]:10/27/2024 Patient:?NA SOLIMAN :1955???Age:69 Y???Sex:Female Address:[address] [place] [address] * true * Date:? Generated for Sheritai collins/Hunter/eTransmitting on:?01/13/2025 03:34 PM EDT
--- OUTSIDE RECORDS SUMMARY | 2025-01-13 15:34 | XMS_ITS | Patient Health Record ---
[facility] Address [address] [place] [address] Care Team Providers Care Operator Supply Name Role Phone Armando Holloway MD Primary Care Provider Saira Carranza Unavailable [phone] Devan Kirkpatrick Unavailable [phone] Allergies Allergen (clinical drug ingredient) Drug/Non Drug [...] Polyneuropathy due to type 2 diabetes mellitus (651659487) Type 2 diabetes mellitus with diabetic polyneuropathy (E11.42) Active confirmed Problem Polyneuropathy due to diabetes mellitus type I (554388639) Type 1 diabetes mellitus with diabetic polyneuropathy (E10.42) Active confirmed Problem 592763046 Lymphedema (I89.0) Active confirmed Vital Signs Blood pressure diastolic 70 mm Hg 03/25/2024 Height 5ft2in in 03/25/2024 Blood pressure systolic 190 mm Hg 03/25/2024 Weight 215 lbs 03/25/2024 BMI 39.32 kg/m2 03/25/2024 Encounters Encounter Location Date Provider Diagnosis [facility] [address] [place] [address] 03/25/2024 Devan Kirkpatrick Type 1 diabetes mellitus with diabetic polyneuropathy E10.42 ; Tinea unguium B35.1 ; Skin disease L98.9 ; Pain in right toe(s) M79.674 ; Pain in left toe(s) M79.675 ; Tinea pedis B35.3 ; Ingrowing nail L60.0 and Lymphedema I89.0 [facility] [address] [place] [address] 03/25/2024 Devan Kirkpatrick Assessments Encounter Date Diagnosis (ICD Code) Assessment [...] X ray : Foot, left 3V 12/19/2022 34965-PBEH SKIN LESIONS, 2 TO 4 08/17/20 21 26469-NBWT SKIN LESIONS, 2 TO 4 12/07/19 22 [id number]-[id number] DYSTROPHIC NAILS ANY # [id number]-THOTVWAU DYSTROPHIC NAILS ANY # Insurance Providers Payer Name Payer Address Payer Phone Subscriber Number Group Number Insured Name Patient Relationship to Insured Coverage Start Date Coverage End Date Medicare National [employer] [address] [facility] [place] [address] [id number] Felecia Self Self - patient is the insured [facility] [address] [facility] [place] [address] [phone] [id number] Felecia Self Self - patient is the insured Medical (General) History Medical History History ICD Code Anemia asthma Back,Hip,and Knee pain Broken bones Cancer covid-19 High blood pressure Reflux ( GERD) Stomach ulcer Measles Chicken pox type II diabetes Surgical History Surgery Date(Month/Year) hysterectomy, vaginal endoscopic spinetoplast of major papila gall bladder inguinal hernia repair cyst removal-uterus Hospitalization History Reason Date(Month/Year) [facility] pancreatitis 6 days 11/25/21 [facility] 5 day stay 07/2021
--- OUTSIDE RECORDS SUMMARY | 2025-01-13 15:34 | XMS_ITS ---
Author Organization [facility] Address [address] [place] [address] Care Team Providers Care Ad Trafficker Name Role Phone Armando Holloway MD Primary Care Provider Unavaila Saira Hurst Unavailable [phone] Devan Kirkpatrick [phone] REASON FOR VISIT Transfer to Different Provider Encounters Encounter Location Date Provider Diagnosis [facility] [address] [place] [address] 09/16/2024 Devan Kirkpatrick Plan Of Treatment No Information Progress Notes * Rachana SOLIMANOscarOB:1955 ( 69 yo F)Acc No.[id number]:09/16/2024 Progress Note Patient:Felecia AVILES Provider:?Devan Kirkpatrick DPM :1955???Age:69 Y???Sex:Female D ate:09/16/2024 Address:[address], [place] Pcp:Armando Holloway MD Subjective: * Chief Complaints: [...] DPM Date:? 025 Generated for Clemencia guadalupe/Hunter/Everitting on:?01/13/2025 03:33 PM EDT
--- OUTSIDE RECORDS SUMMARY | 2025-01-13 15:34 | XMS_ITS ---
Author Organization [facility] Address [address] [place] [address] Care Team Providers Care Circulation Crew Leader Name Role Phone Armando Holloway MD Primary Care Provider Unavaila Saira Hurst Unavailable [phone] Riley Encounters Encounter Location Date Provider Diagnosis [facility] [address] [place] [address] 09/16/2024 Saira Willett Plan Of Treatment No Information Progress Notes * Rachana SOLIMANOscarOB:1955 ( 69 yo F)Acc No.[id number]:09/16/2024 Progress Note Patient:?Felecia SOLIMAN Provider:?Saira Willett DPM :1955???Age:69 Y???Sex:Female D ate:09/16/2024 Address:[address] [facility] Pcp:Armando Holloway MD Subjective: * Chief Complaints: [...] DPM Date:?0 09/16/2024 Generated for Clemencia guadalupe/Hunter/eTransmitting on:?01/13/2025 03:34 PM EDT
--- OUTSIDE RECORDS SUMMARY | 2025-01-13 15:34 | XMS_ITS ---
Author Organization [facility] Address [address] [facility] [address] [place] [address] Care Team Providers Care Product Support Representative Name Role Phone Armando Holloway MD Primary Care Provider Vlaeriano Dickerson [phone] REASON FOR VISIT on voicemail refill Medications Medication SIG (Take, Route, Fr equency, Duration) Notes Start Date End Date Status Lansoprazole 30 MG 1 Orally Twice a day for 90 days 08/15/2023 Active Encounters Encounter Location Date Provider Diagnosis [facility] [address] [place] [address] 08/13/2023 Valeriano Corona Plan Of Treatment Medication Medication Name Sig Start Date Stop Date Notes Lansoprazole 30 MG 1 Orally Twice a day for 90 days 2022 Next Appt Details Provider Name:Valeriano Corona , 02/24/2025 01:40:00 PM, [address] [place] [address], [address], [address], Progress Notes * CAROLEE SOLIMANNEDOB:1955 ( 68 yo F)Acc No.[id number]:08/13/2023 Patient:?JOURDANCAROLEENE :1955???Age:68 Y???Sex:Female Address:[address] [place] [address] * Refills? Start Lansoprazole Capsule Delayed Release, 30 MG, Orally, 180, 1, Twice a day, 90 days, Refills=3 * true * Date:? Generated for Clemencia guadalupe/Hunter/Everitting on:?01/13/2025 03:33 PM EDT
--- OUTSIDE RECORDS SUMMARY | 2025-01-13 15:34 | XMS_ITS ---
Author Organization [facility] Address [address] [place] [address] Care Team Providers Care Weatherization Installer Name Role Phone Armando Holloway MD Primary Care Provider Valeriano Dickerson [phone] REASON FOR VISIT Patient presents today for abdominal pain Encounters Encounter Location Date Provider Diagnosis [facility] [address] [place] [address] 10/27/2024 Valeriano Corona Plan Of Treatment Next Appt Details Provider Name:Valeriano Corona , 02/24/2025 01:40:00 PM, [address], [address], [place], [address], Progress Notes * CAROLEE SOLIMANNEDOB:1955 ( 69 yo F)Acc No.[id number]:10/27/2024 Progress Notes Patient:?JOURDAN NA Provider:?Valeriano Corona MD :1955???Age:69 Y???Sex:Female D ate:10/27/2024 Address:[address] [place] [address] Pcp:Armando Holloway MD Subjective: * Chief Complaints: [...] MD Date:? 025 Generated for Clemencia guadalupe/Hunter/Juliana on:?01/13/2025 03:33 PM EDT
--- OUTSIDE RECORDS SUMMARY | 2025-01-13 15:34 | XMS_ITS | Clinical Summary ---
Author Organization [facility]ly [facility] Address [address] [place] [address] Care Team Providers Care Wholesale And Retail Merchant Name Role Phone Pcp, No Primary Care [...] 11/17/2024 Vancomycin Respiratory distress High 11/17/2024 Medications albuterol (PROVENTIL HFA; VENTOLIN HFA) 108 (90 [...] day. 15 mL 5 Active pancrelipase (CREON) [address] Particles capsuleIndicatio ns:Severe acute pancreatitis Take 1 capsule (12,000 Units total) by mouth 3 (three) times a day with meals. Dose is in units of lipase. 90 capsule 5 Active PANTOprazole (PROTONIX) 40 MG EC tabletIndication s:Ro's esophagus with dysplasia Take 1 tablet (40 mg total) by mouth daily. 30 tablet 5 Active oxyCODONE (ROXICODONE) 10 mg immediate release tabletIndication s:Severe acute pancreatitis Take 1 tablet (10 mg total) by mouth 3 (three) times a day as needed for severe pain. Max Daily Amount: 30 mg 42 tablet 5 Active Active Problems Problem Noted Date Diagnosed Date [...] need to establish care with PCP and weatherization specialist for outpatient management Assessment & Plan (11/21/2024 [...] PM EDT Hospital Encounter [facility] [address] [place] [phone] Lisseth Kumar MD Shah, Darrellr H, DO Acute cystitis without hematuria (Primary Dx); [...] drink = 0.6 oz pur e alcohol) [facility] Utilities Answer Date Recorded In the past 12 months has th e electric, gas, oil, or water company threatened [...] any time in the past 12 m [facility], were you homeless or living in a jail (including now)? No 11/18/2024 Comments Unknown Sex and Gender Information Value Date Recorded Sex Assigned at Female 11/18/2024 9:15 AM EDT Legal Sex Female 6:49 PM EST Gender Identity Female 11/18/2024 9:15 AM EDT [...] Density (Females,Ag es 65 and older) 2018 COVID-19 Vaccine (1 - 2023-2 5 season) 2024 Influenza Vaccine 04/09/2025 Creatinine with GFR 11/23/2025 11/23/2024, 11/18/2024, 11/17/2024 [...] 4:52 PM EDT 11/24/2024 4:59 PM EDT us Cathy Koenig DO POINT OF CARE TEST ORDERABLES Fi nal Result HOSPITAL LAB See Below * CT Abdomen+pelvis [...] 1 anterolistheses seen at L4/5 and L5/S1. Jupg-zy-abdxlxna degenerative change of the spine. There is [...] grade 1 anterolistheses seen at L4/5 andL5/S1. Adet-ee-wlgjmsao degenerative change of the spine. There is [...] tissue infection or inflammation. Cathy Koenig DO G CT ORDERABLES Final Result * (ABNORMAL) COMPLETE BLOOD COUNT, WITHOUT DIFFERENTIAL (11/23/2024 2:23 PM EDT) Only the most recent of3 resultswithin the time period is included. [facility] White Blood Cell Count 5.3 4.0 - [...] 2:23 PM EDT 11/23/2024 2:30 PM EDT us Cathy Koenig DO LAB BLOOD ORDERABLES Final Resul t [facility] [address] [place] [address], [place] * Lipase (11/23/2024 2:23 PM EDT) Only the most recent of3 resultswithin the time period is included. Pathologist [facility] [place] Lipase 60 13 - 60 U/L 11/23/2024 3:05 PM EDT [facility] Blood Blood specimen / Unknown 11/23/2024 2:23 PM EDT 11/23/2024 2:30 PM EDT us Israr H Koenig DO LAB BLOOD ORDERABLES Final Resul t [address] [address], * (ABNORMAL) Comprehensive Metabolic Panel (11/23/2024 2:23 [...] HOSPITAL eGFR 79 >59 11/23/2024 3:05 PM T [facility] Comment:CKD-EPI (2020) in [...] 2:23 PM EDT 11/23/2024 2:30 PM EDT us Cathy Koenig DO LAB BLOOD [place]AB[place] [address], * (ABNORMAL) Triglycerides (11/22/2024 5:00 AM EDT) Only the most recent of5 resultswithin the time period is included. Triglycerides 241(H) <150 mg/dL 11/22/2024 5:42 AM EDT [facility] Blood Blood specimen / Unknown 11/22/2024 5:00 AM EDT 11/22/2024 5:16 AM EDT us Cathy Koenig DO LAB BLOOD ORDERABLES Final Resul t [facility] [address] [place] [address], [place] * (ABNORMAL) Urine Culture (11/21/2024 2:05 PM EDT) Culture Klebsiella pneumoniae >=100,000 col/mL (A) 11/22/2024 12:51 PM EDT [facility] Urine Urine specimen obtained [...] BACTERIAL ARCENIO AND INTERPRETATION (MCG/ML) 16/8: Intermediate us Cathy Koenig DO MICROBIOLOGY - GENERAL ORDERABLE S Final Result [facility] [address] [place] [address], [place] * (ABNORMAL) Urinalysis with Reflex to Microscopic (11/21/2024 2:05 PM EDT) Color Yellow 11/21/2024 2:43 PM EDT [facility] Clarity Turbid 11/21/2024 2:43 PM EDT [facility] Specific [place] 1.020 1.003 - 1.030 11/21/2024 2:43 PM [...] 2:05 PM EDT 11/21/2024 2:16 PM EDT us Israr H Arya DO URINE ORDERABLES Final Result [facility] [address] [place] [address], [place] * (ABNORMAL) Urine Microscopic Exam (11/21/2024 [...] 2:05 PM EDT 11/21/2024 2:16 PM EDT us Cathy Koenig DO URINE ORDERABLES Final Result [facility] [address] [place] [address], [place] * GI PCR Panel (11/20/2024 1:15 AM EDT) Campylobacter Not Detected Not Detected 11/20/2024 8:10 PM EDT [facility] Plesiomonas shigelloides Not Detected Not Detected 11/20/2024 8:10 PM EDT [facility] Salmonella Not Detected Not Detected 11/20/2024 8:10 PM T [facility] Yersinia enterocolitica Not Detected Not Detected 11/20/2024 8:10 PM T [facility] Vibrio Not Detected Not Detected 11/20/2024 8:10 PM T [facility] Vibrio cholerae Not Detected Not Detected 11/20/2024 8:10 PM T [facility] Adenovirus F 40/41 Not Detected Not Detected 11/20/2024 8:10 PM EDT [facility] Astrovirus Not Detected Not Detected 11/20/2024 8:10 PM EDT [facility] Norovirus GI/GII Not Detected Not Detected 11/20/2024 8:10 PM EDT [facility] Rotavirus A Not Detected Not Detected 11/20/2024 8:10 PM EDT [facility] Sapovirus Not Detected Not Detected 11/20/2024 8:10 PM EDT [facility] Cryptosporidium Not Detected Not Detected 11/20/2024 8:10 PM EDT [facility] Cyclospora cayetanensis Not Detected Not Detected 11/20/2024 8:10 PM EDT [facility] Entamoeba histolytica Not Detected Not Detected 11/20/2024 8:10 PM EDT [facility] Giardia lamblia Not Detected Not Detected 11/20/2024 8:10 PM EDT [facility] Enterotoxigenic E.coli (ETEC) Not Detected Not Detected 11/20/2024 8:10 PM EDT [facility] Enteropathogenic E.coli (EPEC) Not Detected Not Detected 11/20/2024 8:10 PM EDT [facility] Shiga toxin producing E.coli (STEC) stx1/stx2 Not Detected Not Detected 11/20/2024 8:10 PM EDT [facility] Shigella/Enteroinvas channing E.coli (EIEC) Not Detected Not Detected 11/20/2024 8:10 PM EDT [facility] Enteroaggregative E.coli (EAEC) Not Detected Not Detected 11/20/2024 8:10 PM EDT [facility] Stool Stool specimen / Unknown 11/20/2024 1:15 AM EDT 11/20/2024 1:41 AM EDT us Debbie Beatty MD MICROBIOLOGY - GENERAL ORD ERABLES Final Result [facility] [address] * C. difficile Toxin and NAP1 PCR with reflex to C. diff Ag/Toxin EIA (11/20/2024 1:15 AM EDT) C. difficile Toxin Gene Negative Negative 11/20/2024 5:54 PM EDT [facility] Comment:Performed by the Xpe rt C. difficile/Epi Assay NAP1 Presumptive Negative Presumptive Negative 11/20/2024 5:54 PM EDT [facility] Comment:Performed by the Xpe rt C. difficile/Epi Assay Stool specimen / Unknown 11/20/2024 1:15 AM EDT 11/20/2024 1:41 AM EDT us Debbie Beatty MD MICROBIOLOGY - GENERAL ORD ERABLES Final Result [facility] [address] [place] [address], [place] * [place] Venous Duplex Arm-Right (DVT) [...] of deep venous thrombus right upper extremity. us Cathy Koenig DO IMG US ORDERABLES Final Result * Potassium (11/19/2024 9:40 AM EDT) Only the most recent of2 resultswithin the time period is included. Potassium 4.9 3.4 - 5.3 mmol/L 11/19/2024 10:44 AM EDT [facility] Comment:Specimen hemolyzed. Results may be artifactually elevated. Blood Blood specimen / Unknown 11/19/2024 9:40 AM EDT 11/19/2024 10:02 AM EDT us Cathy Koenig DO LAB BLOOD ORDERABLES Final Resul t Performing Organization Address [facility] [place] [address], [place] * Phosphorus (Routine) (11/19/2024 9:40 AM EDT) Only the most recent of3 resultswithin the time period is included. Phosphorus 3.3 2.7 - 4.5 mg/dL 11/19/2024 10:44 AM EDT [facility] Blood Blood specimen / Unknown 11/19/2024 9:40 AM EDT 11/19/2024 10:02 AM EDT us Cathy Koenig DO LAB BLOOD ORDERABLES Final Resul t Performing Organization Address [facility] [place] [address], [place] * Magnesium (Early AM) (11/18/2024 6:05 AM EDT) Only the most recent of2 resultswithin the time period is included. Magnesium 1.7 1.6 - 2.7 mg/dL 11/18/2024 6:33 AM EDT [facility] Blood Blood specimen / Unknown 11/18/2024 6:05 AM EDT 11/18/2024 6:11 AM EDT us Sandra Knight APRN LAB BLOOD ORDERABLES Final Res ult Performing Organization Address [facility] [place] [address], [place] * (ABNORMAL) LACTATE DEHYDROGENASE (LDH) (11/18/2024 4:10 AM EDT) Lactate Dehydrogenase (LDH) 316(H) 120 - 260 U/L 11/18/2024 1:19 PM EDT [facility] 11/18/2024 4:10 AM EDT 11/18/2024 4:19 AM EDT us Sandra Knight APRN LAB BLOOD ORDERABLES Final Res ult [facility] [address] [place] [address], [place] * (ABNORMAL) Basic Metabolic Panel (Routine) (11/17/2024 [...] HOSPITAL eGFR >90 >59 11/17/2024 9:16 PM T [facility] Comment:CKD-EPI (2020) in [...] 8:25 PM EDT 11/17/2024 8:31 PM EDT us Sandra Eugene MOSQUERAN LAB BLOOD ORDERABLES Final Res ult [facility] [address] [place] [address], [place] from Last 3 Months Insurance MEDICARE PART A & B [facility] SUPPLEMENT ONLY [facility] SUPPLEMENT ONLY MEDICARE PART A & B Advance Directives * Full Code (Latest Code Status on File) Date Activated Date Inactivated Comments 11/17/2024 7:48 PM Question Answer Comments Decision Thoroughly Discussed with: Patient Care Teams Wholesale And Retail Merchant Relationship Specialty Start Date End Date Pcp, No PCP - General General Medicine 11/18/24
== END 2025-01-13 15:00 | disposition home or self-care (01) ==
LOC: HO.HMCHD 14:22
PROVIDERS: PCP Internal Medicine; Visit Provider Internal Medicine
DX: E11.9 Type 2 diabetes mellitus without complications (principal); K85.90 Acute pancreatitis without necrosis or infection, unspecified

== ENCOUNTER → 2025-01-13 14:21 | Outpatient (BNVA) | payer MEDICARE, OTHER, SELFPAY | PROVIDERS: PCP Internal Medicine; Visit Provider Internal Medicine | DX: E11.9 Type 2 diabetes mellitus without complications (principal); K85.90 Acute pancreatitis without necrosis or infection, unspecified | CPT/HCPCS: 99212 ==

== ENCOUNTER 2025-03-17 14:03 | Outpatient (AMB) | payer MEDICARE, OTHER, SELFPAY ==
--- NOTE | 2025-03-17 14:04 | A.OFFPC_ITS ---
Vital Signs 03/17/25 14:11 03/17/25 14:11 Height 5 ft 2 in Weight 100.698 kg BP 150/80 H Blood Pressure Location Rt brachial Position Sitting Respiration 17 Pulse 70 Pulse Source Pulse Oximeter Temp 97.6 F Temp Source Temporal Artery Scan Pulse Oximetry (%) 99 Oxygen Delivery Method Room Air Intake Visit Reasons: R leg pain Public Health Doctor Required: No Accompanied by: Self / Same As Patient Allergies gentamicin Allergy (Severe, Verified 03/17/25 14:05) Difficulty Breathing Iodinated Contrast Media Allergy (Severe, Verified 03/17/25 14:05) Difficulty Breathing, nausea and vomiting latex (LATEX) Allergy (Severe, Verified 03/17/25 14:05) Anaphylaxis morphine Allergy (Severe, Verified 03/17/25 14:05) Anaphylaxis Penicillins Allergy (Severe, Verified 03/17/25 14:05) stopped breathing as an infant shellfish derived (SHELLFISH DERIVED) Allergy (Severe, Verified 03/17/25 14:05) Difficulty Breathing, swelling vancomycin Allergy (Severe, Verified 03/17/25 14:05) Difficulty Breathing azithromycin Allergy (Unknown, Verified 03/17/25 14:05) Unknown erythromycin base Allergy (Unknown, Verified 03/17/25 14:05) Unknown esomeprazole Allergy (Unknown, Verified 03/17/25 14:05) Unknown pantoprazole Adverse Reaction (Mild, Verified 03/17/25 14:05) Nausea and Vomiting Tobacco use date assessed: 01/13/25 Dental Screening Dental Screen Date: 01/13/25 HPI HPI Comments History of Present Illness Details 69-year-old female with history of type 2 diabetes, hypertension, history of pulmonary embolism, GERD, coronary artery disease, history of endometrial cancer s/p total hysterectomy, aortic stenosis, heart failure preserved ejection frac tion presents to the office today for management of chronic conditions and for evaluation of right leg pain. Type 2 diabetes, last A1c 8.7%, overdue. Using Tresiba 60 units twice daily. Fasting glucose 455, did eat toast and took her tresiba. She is symptomatic with polyuria, polydipsia, fatigue, and brain fog. She is not on any prandial insulin. She does have history of recurrent pancreatitis. Hypertension initial blood pressure 150/80. Reports compliance with metoprolol, enalapril, hydralazine Pulmonary embolism-reports provoked s/p surgery in the 90s. No longer on anticoagulation. HFpEF/CAD-no anginal chest pain. No dyspnea on exertion, orthopnea, weight gain. Compliant with torsemide. On metoprolol and atorvastatin. Overdue for appointment Concerns: R leg pain ongoing several days. Feels superficial like road rash, like a burning sensation. Was the entire leg, now the right upper leg. Hurts constantly worse with touch. No injury. There is erythema on the lower aspect of the right leg. Several weeks ago had some low back pain with sciatica but this feels different. Able to ambulate without difficulty, no weakness. Taking tylenol which helpful but shortlived. Oxycodone not helping. Gabapentin not helping either. Denies recent travel or reent surgery. Does have hx PE, remote no longer on AC, provoked after surgery. There is also erythema on the lower leg with slight warmth and edema. No fevers or chills. ROS: General: No fevers, malaise, unintentional weight loss Cardiovascular: No chest pain, palpitations, or leg edema Respiratory: No shortness of breath, wheezing, cough GI: No abdominal pain, nausea, vomiting, diarrhea, constipation, melena, hematochezia : See HPI MSK: See HPI Neuro: No headaches, weakness, paresthesias Skin: See HPI EXAM: Constitutional - Awake and Alert, No apparent distress Eyes - PERRL Cardiovascular - S1S2, RRR, 2+edema Respiratory - Normal lung expansion, Normal respiratory effort, No respiratory distress, CTA bilaterally Extremities - +ttp, faint erythema, wamrth RLE MSK - no midline ttp lumbar spine, mild tenderness over the R SI joint. Negative straight leg raises Skin - Warm/Dry. Hyperpigmented thickened skin in the distal half of the right lower leg. There is faint erythema along the lateral aspect of the lower leg without any warmth. Mild ttp off the R thigh Neurological - Alert & oriented x3 Psychological - Appropriate affect [facility] Medical History (Updated 03/17/25 @ 15:53 by RODNEY Johnston) Venous stasis dermatitis Pancreatitis Chronic pancreatitis Hypertriglyceridemia Asthma Endometrial cancer Barretts esophagus GERD (gastroesophageal reflux disease) Pancreatic divisum CAD (coronary artery disease) custodial (current) use of insulin Diabetes type 2, uncontrolled Cervical cancer Other and unspecified hyperlipidemia Essential hypertension Vitamin D deficiency T2DM (type 2 diabetes mellitus) HLD (hyperlipidemia) HTN (hypertension) Accelerated essential hypertension Embolism Surgical History History of esophagogastroduodenoscopy (EGD) Hx of colonoscopy (~07/03/23) Hx of removal of cyst Hx of hernia repair Hx of cholecystectomy Hx of endoscopy Hx of hysterectomy Family History (Updated 01/13/25 @ 14:32 by Alyssa Landin MA) Father Diabetes Mother Diabetes Social History Household Members: Spouse Housing: House Do you presently have visiting nurse or other home services: No Alcohol intake: never Comment: sleeping Patient Tobacco Use Status: Former Tobacco user e-Cigarette/Vaping Use: Former Use service: No Current occupational status: employed Current occupation: [employer] Cognitive needs: No Hearing needs: No Vision needs: Yes (rx glasses) Questionnaire Thrive Questionnaire Date Thrive assessed: 01/13/25 PARISH-7 AMB Questionnaire PARISH-7 Date PARISH - 7 assessed: 01/13/25 Source: Developed by Drs. Valeriano Danielson, Dina Olivares, Johnson Pierre and colleagues, with an educational margy from [employer]. Physical exam (Primary Care) Vital Signs: Last Vital Signs Temp 97.6 F 03/17/25 14:11 Pulse 70 03/17/25 14:11 Resp 17 03/17/25 14:11 BP 150/80 H 03/17/25 14:11 Pulse Ox 99 03/17/25 14:11 Oxygen Delivery Method Room Air 03/17/25 14:11 Tobacco/Smoking Status: Tobacco use Status Tobacco use date assessed 01/13/25 03/17/25 14:07 Patient Tobacco Use Status Former Tobacco user 03/17/25 14:07 e-Cigarette/Vaping Use Former Use 03/17/25 14:07 Thrive Assessment: Date of Thrive Assessment Date Thrive assessed 01/13/25 03/17/25 14:07 Coding Level of Care Code Est Pt Level 4 (52873) Complex EM visit Add On G2211 Diagnoses Acute pain of right lower extremity M79.604 Essential hypertension I10 Hypertension type: essential hypertension Mixed hyperlipidemia E78.2 Hyperlipidemia type: mixed hyperlipidemia Uncontrolled type 2 diabetes mellitus with hyperglycemia E11.65 Glycemic state: with hyperglycemia Chronic heart failure with preserved ejection fraction I50.32 Venous stasis dermatitis I87.2 Assessment & Plan Assessment & Plan (1) Acute pain of right lower extremity: Code(s): M79.604 - Pain in right leg Category: Medical Plan: Given clinical presentation/exam findings, concern for DVT. Stat ultrasound of the right lower extremity ordered and scheduled for today. There is lower extremity edema but is her baseline and does not extend into the thigh. Pain does seem consistent with radiculopathy/neuropathy possibly related to the SI joint or possibly hyperglycemia. Await results of ultrasound and adjust plan as indicated based on results. (2) HTN (hypertension): Code(s): I10 - Essential (primary) hypertension Category: Medical Qualifiers: Hypertension type: essential hypertension Qualified Code(s): I10 - Essential (primary) hypertension Plan: Uncontrolled. Increase hydralazine back up to 3 times daily. Continue enalapril 20 mg twice daily and metoprolol 200 mg at bedtime. Low-sodium diet (3) HLD (hyperlipidemia): Code(s): E78.5 - Hyperlipidemia, unspecified Category: Medical Qualifiers: Hyperlipidemia type: mixed hyperlipidemia Qualified Code(s): E78.2 - Mixed hyperlipidemia Plan: Lipid panel ordered. Continue atorvastatin. (4) Diabetes type 2, uncontrolled: Code(s): E11.65 - Type 2 diabetes mellitus with hyperglycemia Category: Medical Qualifiers: Glycemic state: with hyperglycemia Qualified Code(s): E11.65 - Type 2 diabetes mellitus with hyperglycemia Plan: Patient with significant elevated fasting glucose this morning at 04:55, did take her Tresiba. However is still symptomatic. Sent for stat BMP and hemoglobin A1c. Pending results, she may be advised to present to the ED. We will also likely adjust basal insulin and add prandial insulin with referral to endocrinology. Diabetic diet (5) Chronic heart failure with preserved ejection fraction: Code(s): I50.32 - Chronic diastolic (congestive) heart failure Category: Medical Plan: No acute exacerbation. Continue torsemide (6) Venous stasis dermatitis: Code(s): I87.2 - Venous insufficiency (chronic) (peripheral) Category: Medical Plan: Unlikely to be acute cellulitis and is unrelated to the pain of the upper leg. W ill check CBC. Consider abx pending results. Compression stockings and continue torsemide. Plan Follow up as scheduled. US RLE and labs to be completed today Orders: Orders Complete Blood Count Auto Diff Today E11.9 - Type 2 diabetes mellitus without complications, I10 - Essential (primary) hypertension Hemoglobin A1c Today E11.9 - Type 2 diabetes mellitus without complications, I10 - Essential (primary) hypertension Lipid Panel Today E11.9 - Type 2 diabetes mellitus without complications, I10 - Essential (primary) hypertension Liver Panel Today E11.9 - Type 2 diabetes mellitus without complications, I10 - Essential (primary) hypertension Basic Metabolic Panel Today E11.9 - Type 2 diabetes mellitus without complications, I10 - Essential (primary) hypertension US venous duplex LE RT Today L53.9 - Erythematous condition, unspecified, R22.41 - Localized swelling, mass and lump, right lower limb, Z86.711 - Personal history of pulmonary embolism
[2025-03-17 14:11] VITALS: BP 150/80; PULSE 70; RESP 17; TEMP 36.4; O2SAT 99
--- OUTSIDE RECORDS SUMMARY | 2025-03-17 14:46 | XMS_ITS ---
Author Name [facility] Organization Unknown Results Test Name/Text Value Interpretation Date Range Source POC Glucose 203.0 mg/dL Above high normal 11/24/2024 65 - 99 [facility] POC Glucose 165.0 mg/dL Above high normal 11/24/2024 65 - 99 [facility] POC Glucose 131.0 mg/dL Above high normal 11/24/2024 65 - 99 [facility] POC Glucose 234.0 mg/dL Above high normal 11/24/2024 65 - 99 H[facility]CT POC Glucose 223.0 mg/dL Above high normal 11/23/2024 65 - 99 H[facility]CT Creat SerPl-mCnc 0.8 mg/dL Normal 11/23/2024 0.4 - 1.1 HH CCT CO2 SerPl-sCnc 26.0 mmol/L Normal 11/23/2024 22 - 33 HH CCT Calcium SerPl-mCnc 9.5 mg/dL Normal 11/23/2024 8.7 - 10.5 HHCCT Sodium SerPl-sCnc 136.0 mmol/L Normal 11/23/2024 136 - 14 5 HHCCT Albumin/Glob SerPl 1.1 Ratio Normal 11/23/2024 1 - 3 HHCCT Chloride SerPl-sCnc 101.0 mmol/L Normal 11/23/2024 98 - 1 07 HHCCT Potassium SerPl-sCnc 3.9 mmol/L Normal 11/23/2024 3.4 - 5.3 HHCCT Glucose SerPl-mCnc 266.0 mg/dL Above high normal 11/23/2024 65 - 99 HHCCT BUN SerPl-mCnc 9.0 mg/dL Normal 11/23/2024 8 - 21 HHCC T Anion Gap Bld-sCnc 9.0 Normal 11/23/2024 7 - 17 HHCCT Globulin Ser Calc-mCnc 3.1 g/dL Normal 11/23/2024 1.5 - 3.9 HHCCT Bilirub SerPl-mCnc 0.4 mg/dL Normal 11/23/2024 0.2 - 1 HHCCT ALT SerPl-cCnc 14.0 U/L Normal 11/23/2024 10 - 50 HHCC T BUN/Creat SerPl 11.0 Ratio Normal 11/23/2024 10 - 25 HH CCT ALP SerPl-cCnc 70.0 U/L Normal 11/23/2024 32 - 122 HHCC T Prot SerPl-mCnc 6.6 g/dL Normal 11/23/2024 6.3 - 8.[address] AST SerPl-cCnc 27.0 U/L Normal 11/23/2024 10 - 50 HHCC T GFR/BSA.pred SerPlBld QZU-NEV-FrURaf 79.0 Normal 11/23/2024 59 - HHCCT Albumin SerPl-mCnc 3.5 g/dL Normal 11/23/2024 3.4 - 4.8 HHCCT Lipase SerPl-cCnc 60.0 U/L Normal 11/23/2024 13 - 60 H HCCT PMV Bld Auto 11.6 fL Normal 11/23/2024 7.5 - 12.5 HHCCT Hgb Bld-mCnc 11.2 g/dL Below low normal 11/23/2024 11.7 - 15 .7 HHCCT MCV RBC Auto 89.0 fL Normal 11/23/2024 80 - 100 HHCCT Hct VFr Bld Auto 35.1 % Normal 11/23/2024 35 - 47 HH CCT MCH RBC Qn Auto 28.3 pg Normal 11/23/2024 27 - [address] WBC num Bld Auto 5.3 Thou/uL Normal 11/23/2024 4 - 11 HHCCT RDW RBC Auto-Rto 14.0 % Normal 11/23/2024 11.5 - 14.5 HHCCT MCHC RBC Auto-mCnc 31.9 g/dL Normal 11/23/2024 30 - 36 HHCCT Platelet num Bld Auto 241.0 Thou/uL Normal 11/23/2024 150 - 450 HHCCT RBC num Bld Auto 3.96 Mil/uL Below low normal 11/23/2024 4 - 5.4 HHCCT POC Glucose 233.0 mg/dL Above high normal 11/23/2024 65 - HHCCT POC Glucose 167.0 mg/dL Above high normal 11/23/2024 65 [facility]CT POC Glucose 246.0 mg/dL Above high normal 11/23/2024 65 [facility]CT POC Glucose 240.0 mg/dL Above high normal 11/22/2024 65 [facility]CT POC Glucose 213.0 mg/dL Above high normal 11/22/2024 65 [facility]CT POC Glucose 106.0 mg/dL Above high normal 11/22/2024 65 [facility]CT POC Glucose 55.0 mg/dL Below low normal 11/22/2024 [facility]-m[facility] 241.0 mg/dL Above high normal 11/22/2024 - [facility] Glucose 157.0 mg/dL Above high normal 11/22/2024 H[facility] POC Glucose 185.0 mg/dL Above high normal 11/21/2024 65 CCT Sp Gr Ur Strip 1.02 Normal 11/21/2024 1.003 - 1.03 H HCCT Hgb Ur Ql Strip Trace Abnormal 11/21/2024 - [facility] CT pH Ur Strip 6.0 Normal 11/21/2024 5 - 8 [facility] Glucose Ur Strip-mCnc Negative Normal 11/21/2024 - [facility] Ketones Ur Strip-mCnc Negative Normal 11/21/2024 - [facility] Clarity Ur Turbid Normal 11/21/2024 [facility] Leukocyte esterase Ur Ql Strip Moderate Abnormal 11/21/2024 - [facility] Prot Ur Strip-mCnc Moderate (100 mg/dL) Abnormal 11/21/2024 - [facility] Color Ur Yellow Normal 11/21/2024 [facility] Nitrite Ur Ql Strip Positive Abnormal 11/21/2024 - [facility] Bilirub Ur Strip-mCnc Negative Normal 11/21/2024 - [facility] Glucose 144.0 mg/dL Above high normal 11/21/2024 65 [facility] POC Glucose 128.0 mg/dL Above high normal 11/21/2024 65 [facility] POC Glucose 212.0 mg/dL Above high normal 11/21/2024 65 99 [facility]CT POC Glucose 144.0 mg/dL Above high normal 11/20/2024 65 - 99 [facility]CT POC Glucose 145.0 mg/dL Above high normal 11/20/2024 65 - 99 [facility] POC Glucose 153.0 mg/dL Above high normal 11/20/2024 65 - 99 H[facility]CT EAEC Edith plas aggR+aatA St LATONYA+non-prb Not Detected Normal 11/21/2024 - H[facility]CT Sapovirus RNA XXX Ql PCR Not Detected Normal 11/21/2024 - H[facility]CT EPEC eae gene Stl Ql LATONYA+non-probe Not Detected Normal 11/21/2024 - HHCCT C cayetanensis DNA XXX Ql PCR Not Detected Normal 11/21/2024 - HHCCT HAdV DNA XXX Ql PCR Not Detected Normal 11/21/2024 - HHCCT Shigella sp+EIEC ipaH St LATONYA+non-probe Not Detected Normal 11/21/2024 - HHCCT Cryptosp DNA XXX Ql PCR Not Detected Normal 11/21/2024 - HHCCT P shigelloides DNA Stl Ql PCR Not Detected Normal 11/21/2024 - H[facility]CT RV RNA XXX Ql PCR Not Detected Normal 11/21/2024 - H[facility]CT Salmonella DNA XXX Ql PCR Not Detected Normal 11/21/2024 - H[facility]CT HAstV RNA XXX Ql PCR Not Detected Normal 11/21/2024 - HHCCT EC stx1+stx2 genes Stl Ql LATONYA+non-probe Not Detected Normal 11/21/2024 - HHCCT Campy sp DNA.diarrhea Stl Ql PCR Not Detected Normal 11/21/2024 - HHCCT V cholerae DNA XXX Ql PCR Not Detected Normal 11/21/2024 - HHCCT Norovirus RNA XXX Ql PCR Not Detected Normal 11/21/2024 - HHCCT ETEC ltA+st1a+st1b tox St LATONYA+non-probe Not Detected Normal 11/21/2024 - HHCCT G lamblia DNA XXX Ql PCR Not Detected Normal 11/21/2024 - HHCCT Yersinia DNA XXX PCR Not Detected Normal 11/21/2024 - HHCCT E histolyt DNA XXX Ql PCR Not Detected Normal 11/21/2024 - HHCCT Vibrio DNA XXX PCR Not Detected Normal 11/21/2024 - HHCCT C dif Tox gens Stl Ql PCR Presumptive Negative Normal 11/20/2024 - HHCCT POC Glucose 132.0 mg/dL Above high normal 11/20/2024 65 - 99 HHCCT POC Glucose 96.0 mg/dL Normal 11/19/2024 65 - 99 H[facility]CT POC Glucose 120.0 mg/dL Above high normal 11/19/2024 65 - 99 HHCCT Potassium SerPl-sCnc 4.9 mmol/L Normal 11/19/2024 3.4 - 5.3 HHCCT Phosphate SerPl-mCnc 3.3 mg/dL Normal 11/19/2024 2.7 - 4.5 HHCCT POC Glucose 82.0 mg/dL Normal 11/19/2024 65 - 99 HHCCT POC Glucose 69.0 mg/dL Normal 11/19/2024 65 - 99 HHCCT Trigl SerPl-mCnc 358.0 mg/dL Above high normal 11/19/2024 - 150 H[facility]CT Lipase SerPl-cCnc 137.0 U/L Above high normal 11/19/2024 13 - 60 HHCCT POC Glucose 156.0 mg/dL Above high normal 11/19/2024 65 - 99 HHCCT POC Glucose 109.0 mg/dL Above high normal 11/18/2024 65 - 99 HHCCT POC Glucose 105.0 mg/dL Above high normal 11/18/2024 65 - 99 HHCCT POC Glucose 159.0 mg/dL Above high normal 11/18/2024 65 - 99 HHCCT POC Glucose 170.0 mg/dL Above high normal 11/18/2024 65 - 99 HHCCT POC Glucose 179.0 mg/dL Above high normal 11/18/2024 65 - 99 HHCCT POC Glucose 168.0 mg/dL Above high normal 11/18/2024 65 - 99 HHCCT Phosphate SerPl-mCnc 2.1 mg/dL Below low normal 11/18/2024 2.7 - 4.5 HHCCT Trigl SerPl-mCnc 457.0 mg/dL Above high normal 11/18/2024 - 150 HHCCT Potassium SerPl-sCnc 3.3 mmol/L Below low normal 11/18/2024 3.4 - 5.3 HHCCT GFR/BSA.pred SerPlBld WHO-FWH-YyUZhk >90.0 Normal 11/18/2024 59 - HHCCT Bilirub SerPl-mCnc 0.4 mg/dL Normal 11/18/2024 0.2 - 1 HHCCT Albumin SerPl-mCnc 3.4 g/dL Normal 11/18/2024 3.4 - 4.8 HHCCT Sodium SerPl-sCnc 133.0 mmol/L Below low normal 11/18/2024 1 36 - 145 HHCCT ALT SerPl-cCnc 13.0 U/L Normal 11/18/2024 10 - 50 HH[facility] T AST SerPl-cCnc 22.0 U/L Normal 11/18/2024 10 - 50 HH[facility] T BUN SerPl-mCnc 7.0 mg/dL Below low normal 11/18/2024 8 - 21 HHCCT Chloride SerPl-sCnc 101.0 mmol/L Normal 11/18/2024 98 - 1 07 HHCCT Albumin/Glob SerPl 1.2 Ratio Normal 11/18/2024 1 - 3 HHCCT Globulin Ser Calc-mCnc 2.8 g/dL Normal 11/18/2024 1.5 - 3.9 HHCCT BUN/Creat SerPl 12.0 Ratio Normal 11/18/2024 10 - 25 HH CCT Glucose SerPl-mCnc 165.0 mg/dL Above high normal 11/18/2024 65 - 99 HHCCT ALP SerPl-cCnc 78.0 U/L Normal 11/18/2024 32 - 122 HHCC T CO2 SerPl-sCnc 24.0 mmol/L Normal 11/18/2024 22 - 33 HH CCT Anion Gap Bld-sCnc 8.0 Normal 11/18/2024 7 - 17 HHCCT Prot SerPl-mCnc 6.2 g/dL Below low normal 11/18/2024 6.3 - 8.3 HHCCT Creat SerPl-mCnc 0.6 mg/dL Normal 11/18/2024 0.4 - 1.1 HH CCT Calcium SerPl-mCnc 8.6 mg/dL Below low normal 11/18/2024 8.7 - 10.5 HHCCT Magnesium SerPl-mCnc 1.7 mg/dL Normal 11/18/2024 1.6 - 2.7 HHCCT MCV RBC Auto 86.0 fL Normal 11/18/2024 80 - 100 H[facility]CT Platelet num Bld Auto 245.0 Thou/uL Normal 11/18/2024 150 - 450 H[facility]CT RBC num Bld Auto 4.39 Mil/uL Normal 11/18/2024 4 - 5.4 HHCCT WBC num Bld Auto 11.2 Thou/uL Above high normal 11/18/2024 4 - 11 HHCCT MCH RBC Qn Auto 28.7 pg Normal 11/18/2024 27 - [address] Hct VFr Bld Auto 37.6 % Normal 11/18/2024 35 - 47 HH CCT RDW RBC Auto-Rto 14.0 % Normal 11/18/2024 11.5 - 14.5 HHCCT MCHC RBC Auto-mCnc 33.5 g/dL Normal 11/18/2024 30 - 36 HHCCT PMV Bld Auto 10.9 fL Normal 11/18/2024 7.5 - 12.5 HHCCT Hgb Bld-mCnc 12.6 g/dL Normal 11/18/2024 11.7 - 15.7 HHCC T POC Glucose 160.0 mg/dL Above high normal 11/18/2024 65 - 99 HHCCT POC Glucose 148.0 mg/dL Above high normal 11/18/2024 65 - 99 HHCCT LDH SerPl L to P-cCnc 316.0 U/L Above high normal 11/18/2024 120 - 260 HHCCT Lipase SerPl-cCnc 563.0 U/L Above high normal 11/18/2024 13 - 60 HHCCT Trigl SerPl-mCnc 534.0 mg/dL Above high normal 11/18/2024 - 150 HHCCT Potassium SerPl-sCnc 3.6 mmol/L Normal 11/18/2024 3.4 - 5.3 HHCCT POC Glucose 162.0 mg/dL Above high normal 11/18/2024 65 - 99 HHCCT POC Glucose 171.0 mg/dL Above high normal 11/18/2024 65 - 99 HHCCT POC Glucose 151.0 mg/dL Above high normal 11/18/2024 65 - 99 HHCCT POC Glucose 110.0 mg/dL Above high normal 11/18/2024 65 - 99 HHCCT POC Glucose 139.0 mg/dL Above high normal 11/18/2024 65 - 99 HHCCT POC Glucose 105.0 mg/dL Above high normal 11/18/2024 65 - 99 HHCCT POC Glucose 111.0 mg/dL Above high normal 11/18/2024 65 - 99 HHCCT POC Glucose 132.0 mg/dL Above high normal 11/18/2024 65 - 99 HHCCT Magnesium SerPl-mCnc 1.8 mg/dL Normal 11/18/2024 1.6 - 2.7 HHCCT Trigl SerPl-mCnc 743.0 mg/dL Above high normal 11/18/2024 - 150 H[facility]CT BUN SerPl-mCnc 12.0 mg/dL Normal 11/18/2024 8 - [address] Chloride SerPl-sCnc 103.0 mmol/L Normal 11/18/2024 98 - 1 07 HHCCT Sodium SerPl-sCnc 138.0 mmol/L Normal 11/18/2024 136 - 14 5 HHCCT BUN/Creat SerPl 20.0 Ratio Normal 11/18/2024 10 - 25 HH CCT Calcium SerPl-mCnc 8.9 mg/dL Normal 11/18/2024 8.7 - 10.5 HHCCT Potassium SerPl-sCnc 3.3 mmol/L Below low normal 11/18/2024 3.4 - 5.3 HHCCT CO2 SerPl-sCnc 22.0 mmol/L Normal 11/18/2024 22 - 33 HH CCT Anion Gap Bld-sCnc 13.0 Normal 11/18/2024 7 - 17 HHCCT Creat SerPl-mCnc 0.6 mg/dL Normal 11/18/2024 0.4 - 1.1 HH CCT Glucose SerPl-mCnc 111.0 mg/dL Above high normal 11/18/2024 65 - 99 HHCCT GFR/BSA.pred SerPlBld DMT-MFR-AkTAjo >90.0 Normal 11/18/2024 59 - HHCCT Phosphate SerPl-mCnc 2.2 mg/dL Below low normal 11/18/2024 2.7 - 4.5 HHCCT RDW RBC Auto-Rto 14.2 % Normal 11/18/2024 11.5 - 14.5 HHCCT MCV RBC Auto 88.0 fL Normal 11/18/2024 80 - 100 HHCCT RBC num Bld Auto 4.62 Mil/uL Normal 11/18/2024 4 - 5.4 HHCCT Platelet num Bld Auto 221.0 Thou/uL Normal 11/18/2024 150 - 450 HHCCT PMV Bld Auto 11.7 fL Normal 11/18/2024 7.5 - 12.5 HHCCT Hgb Bld-mCnc 13.0 g/dL Normal 11/18/2024 11.7 - 15.7 HHCC T WBC num Bld Auto 9.9 Thou/uL Normal 11/18/2024 4 - 11 HHCCT MCHC RBC Auto-mCnc 32.1 g/dL Normal 11/18/2024 30 - 36 HHCCT MCH RBC Qn Auto 28.1 pg Normal 11/18/2024 27 - [address] Hct VFr Bld Auto 40.5 % Normal 11/18/2024 35 - 47 HH CCT POC Glucose 115.0 mg/dL Above high normal 11/18/2024 65 - 99 HHCCT POC Glucose 165.0 mg/dL Above high normal 11/18/2024 65 - 99 HHCCT POC Glucose 39.0 mg/dL Critically low 11/17/2024 65 - 99 H HCCT Encounters Encounter Type Encounter Reason Primary Diagnosis Location Date Inpatient Acute cystitis without hematuria Acute cystitis without hematuria [facility] 11/17/2024 Care Team Organization Name Specialty Phone Email Start Date End [facility] 11/26/2024 12/23/2024 [facility] NO PCP Primary Care 11/19/2024 [facility] 11/18/2024
--- OUTSIDE RECORDS SUMMARY | 2025-03-17 14:46 | XMS_ITS | Clinical Summary ---
Author Organization [facility] Address [address] [place] [address] Care Team Providers Care Concrete Vibrator Operator Name Role Phone Pcp, No Primary Care [...] day. 15 mL 5 Active pancrelipase (CREON) [address]13-[address] units [address] Particles capsuleIndicatio ns:Severe acute [...] need to establish care with PCP and perinatal tech for outpatient management Assessment & Plan (11/21/2024 [...] Plan (11/19/2024 12:31 PM EDT): See above Family History Medical History Relation Name Comments Diabetes Father Diabetes Mother Relation Name Status Comments Father Mother Social History Tobacco Use Types Packs/Day Years Used Date Smoking Tobacco: Former Cigarettes Smokeless Tobacco: Never Tobacco Cessation:Counseling Given: Not Answered Alcohol Use Standard Drinks/Week Comments Never 0 (1 standard drink = 0.6 oz pur e alcohol) [facility] Utilities Answer Date Recorded In the past 12 months has [employer], gas, oil, or water [employer] threatened to shut off services in your [...] any time in the past 12 m [facility], were you homeless or living in a senior living (including now)? No 11/18/2024 Comments Unknown Sex [...] 70 11/24/2024 10:00 AM EDT Temperature 36.9 C (98.5 F) 11/24/2024 7:00 AM EDT Respiratory Rate 20 11/24/2024 12:00 AM EDT [...] Procedure Name Priority Date/Time Associated Diagnosis Comments COMPREHENSIVE METABOLIC PANEL Routine 11/23/2024 2:23 PM EDT from Last 3 Months or Most Recently Relevant to Health Maintenance Results * (ABNORMAL) Comprehensive Metabolic Panel (11/23/2024 2:23 PM EDT) Glucose 266(H) 65 - 99 mg/dL 11/23/2024 3:05 PM EDT [facility] Comment:Fasting: <100 mg/dL, Non-Fasting: <200 mg/dL (ADA 2005) Blood Urea Nitrogen (BUN) 9 8 - 21 mg/dL 11/23/2024 3:05 PM EDT [facility] Creatinine 0.8 0.4 - 1.1 mg/dL 11/23/2024 3:05 PM EDT [facility] eGFR 79 >59 11/23/2024 3:05 PM EDT [facility] Comment:CKD-EPI (2020) in mL /min/1.73 sq meters. Sodium 136 136 - 145 mmol/L 11/23/2024 3:05 PM EDT [facility] Potassium 3.9 3.4 - 5.3 mmol/L 11/23/2024 3:05 PM EDT [facility] Chloride 101 98 - 107 mmol/L 11/23/2024 3:05 PM EDT [facility] CO2 26 22 - 33 mmol/L 11/23/2024 3:05 PM EDT [facility] Calcium 9.5 8.7 - 10.5 mg/dL 11/23/2024 3:05 PM T [facility] Alkaline Phosphatase 70 32 - 122 U/L 11/23/2024 3:05 PM T [facility] Aspartate Aminotrans (AST) 27 10 - 50 U/L 11/23/2024 3:05 PM T [facility] Alanine Aminotrans (ALT) 14 10 - 50 U/L 11/23/2024 3:05 PM [facility] Bilirubin, Total 0.4 0.2 - 1.0 mg/dL 11/23/2024 3:05 PM [facility] Protein, Total 6.6 6.3 - 8.3 g/dL 11/23/2024 3:05 PM [facility] Albumin 3.5 3.4 - 4.8 g/dL 11/23/2024 3:05 PM [facility] BUN/Creatinine Ratio 11 10.0 - 25.0 Ratio 11/23/2024 3:05 PM [facility] Globulin 3.1 1.5 - 3.9 g/dL 11/23/2024 3:05 PM [facility] Albumin/Globulin Ratio 1.1 1.0 - 3.0 Ratio 11/23/2024 3:05 PM [facility] Anion Gap 9 7 - 17 11/23/2024 3:05 PM [facility] Blood Blood specimen / Unknown 11/23/2024 2:23 PM EDT 11/23/2024 2:30 PM EDT us Darrellr Aurea Arya DO LAB BLOOD ORDERABLES Final Resul t [address] [address], from Last 3 Months or Most Recently Relevant to Health Maintenance Insurance MEDICARE PART A & B [facility] [place] [facility] SUPPLEMENT ONLY MEDICARE PART A & B Advance Directives * Full Code (Latest Code Status on File) Date Activated Date Inactivated Comments 11/17/2024 7:48 PM Question Answer Comments Decision Thoroughly Discussed with: Patient Care Teams Concrete Vibrator Operator Relationship Specialty Start Date End Date Pcp, No PCP - General General Medicine 11/18/24
== END 2025-03-17 17:25 | disposition home or self-care (01) ==
LOC: HO.HMCHD 14:04
PROVIDERS: PCP Internal Medicine; Visit Provider Physician Assistant
DX: M79.604 Pain in right leg (principal); I10 Essential (primary) hypertension; E78.2 Mixed hyperlipidemia; E11.65 Type 2 diabetes mellitus with hyperglycemia; I50.32 Chronic diastolic (congestive) heart failure; I87.2 Venous insufficiency (chronic) (peripheral)

== ENCOUNTER 2025-03-17 14:49 | Outpatient (REF) | payer MEDICARE, OTHER, SELFPAY ==
--- NOTE | ~2025-03-17 | US_ITS ---
EXAMINATION: US TRIPLEX LOWER EXTREMITY, RIGHT CLINICAL INFORMATION: Pain, right lower extremity. COMPARISON: None available. TECHNIQUE: Color-flow triplex imaging with spectral analysis and compression Doppler were performed on the right lower extremity. FINDINGS: Respiratory variation, normal compression and augmented flow are present in the interrogated right common femoral vein, superficial femoral vein, profunda femoral vein, popliteal vein and midcalf peroneal and posterior tibial venous segments. There is no Salomon's cyst. US/US venous duplex LE RT IMPRESSION: No acute deep venous thrombosis interrogated veins, right lower extremity. Negative for DVT. Electronically signed by: Catalino Williamson MD 03/17/2025 03:40 PM EDT
--- OUTSIDE RECORDS SUMMARY | 2025-03-17 15:19 | XMS_ITS | Patient Health Record ---
Author Organization [facility] Address [address] [place] [address] Care Team Providers Care News Director Name Role Phone Armando Holloway MD Primary Care Provider Saira Carranza Unavailable [phone] Devan Kirkpatrick Unavailable [phone] Allergies Allergen (clinical drug ingredient) Drug/Non Drug Allergy documented on EMR Reaction Allergy Type Onset Date Status Adhesive Unknown Allergy Active erythromycin Erythromycin Unknown Drug Allergy A ctive Iodine Unknown Drug Allergy Active Latex Latex Unknown Allergy Active morphine Morphine Unknown Drug Allergy Active Penicillin Unknown Drug Allergy Active Shellfish (FN) Shellfish-derived Products Unknown Drug Allergy Active Reason For Referral No Information Medications Medication SIG (Take, Route, Frequency, Duration) Notes Start Date End Date Status Albuterol Sulfate (2.5 MG/3ML) 0.083% 3 ml as needed Inhalation every 6 hrs Active Levemir Active amLODIPine Besylate 10 MG 1 tablet Orally Once a day; Duration: 30 day(s) Active Extra Depth Diabetic Shoes with 3 Pair Custom heat-molded multi-density innersoles for 1 year Dx: A ctive Prevacid 30 MG 1 capsule before a m eal Orally Once a day; Duration: 30 day(s) Active Clotrimazole-Betamethaso ne 1-0.05 % 1 application to affected area Externally Twice a day to affected areas on feet; Duration: 30 days Active Neurontin 300 MG 1 capsule Orally Onc e a day; Duration: 30 day(s) Active Gabapentin Active Tricor 145 MG 1 tablet Orally Once a day; Duration: 30 day(s) Active oxyCODONE HCl 10 MG 1 tablet as needed Orally every 6 hrs Active hydrALAZINE HCl 50 MG 1 tablet with food Orally Three times a day; Duration: 30 day(s) Active HumaLOG 100 UNIT/ML as directed Subcutaneous Not-Taking Enalapril Maleate 20 MG 1 tablet Orally Once a day; Duration: 30 day(s) Active Furosemide 40 MG 1 tablet Orally Once a day; Duration: 30 day(s) Not-Cas ing Lipitor 40 MG 1 tablet Orally Once a day; Duration: 30 day(s) Active Lantus Active Torsemide 20 MG Oral; Duration: 77 Days Active Immunizations Vaccine Route Administration [...] Polyneuropathy due to type 2 diabetes mellitus (274122661) Type 2 diabetes mellitus with diabetic polyneuropathy (E11.42) Active confirmed Problem Polyneuropathy due to diabetes mellitus type I (315294277) Type 1 diabetes mellitus with diabetic polyneuropathy (E10.42) Active confirmed Problem Lymphedema (09221851) Lymphedema (I89.0) Active confirmed Vital Signs Blood pressure diastolic 70 mm Hg 03/25/2024 Height 5ft2in in 03/25/2024 Blood pressure systolic 190 mm Hg 03/25/2024 Weight 215 lbs 03/25/2024 BMI 39.32 kg/m2 03/25/2024 Encounters Encounter Location Date Provider Diagnosis [facility] [address] [place] [address] 03/25/2024 Devan Kirkpatrick Type 1 diabetes mellitus with diabetic polyneuropathy E10.42 ; Tinea unguium B35.1 ; Skin disease L98.9 ; Pain in right toe(s) M79.674 ; Pain in left toe(s) M79.675 ; Tinea pedis B35.3 ; Ingrowing nail L60.0 and Lymphedema I89.0 [facility] [address] [place] [address] 03/25/2024 Devan Kirkpatrick Assessments Encounter Date Diagnosis [...] X ray : Foot, left 3V 12/19/2022 [id number] SKIN LESIONS, 2 TO 4 08/17/20 21 [id number] SKIN LESIONS, 2 TO 4 12/07/19 22 [id number] DYSTROPHIC NAILS ANY # [id number] DYSTROPHIC NAILS ANY # Insurance Providers Payer Name Payer Address Payer Phone Subscriber Number Group Number Insured Name Patient Relationship to Insured Coverage Start Date Coverage End Date Medicare National Govt Sv[employer] [address] [facility] [place] [address] [id number] Felecia Self Self - patient is the insured [facility] [address] [facility] [place] [address] [phone] [id number] Felecia Self Self - patient is the insured Medical (General) History Medical History History ICD Code Anemia asthma Back,Hip,and Knee pain Broken bones Cancer covid-19 High blood pressure Reflux ( GERD) Stomach ulcer Measles Chicken pox type II diabetes Surgical History Surgery Date(Month/Year) hysterectomy, vaginal endoscopic spinetoplast of major papila gall bladder inguinal hernia repair cyst removal-uterus Hospitalization History Reason Date(Month/Year) [facility] pancreatitis 6 days 11/25/21 [facility] 5 day stay 07/2021
[2025-03-17 16:15] LABS: MANUAL DIFF FLAG NO
[2025-03-17 17:09] LABS: Hematocrit 38.7 % (37.0-47.0); Hemoglobin 12.3 g/dl (12.0-16.0); Imm Gran Abs Auto 0.01 X10*3/uL (0.00-0.03); Imm Gran Pct Auto 0.2 % (0.0-0.4); Lymphocytes Absolute Auto 1.3 X10*3/uL (1.2-4.9); Mean Corpuscular HGB Conc 31.8 g/dl (31.0-35.0); Mean Corpuscular Hemoglobin 28.6 pg (27.0-33.0); Mean Corpuscular Volume 90.0 fL (80.0-98.0); NRBC Abs Auto 0.000 X10*3/uL (0.0-0.012); NRBC Pct Auto 0.0 /100WBC (0.0-0.2); Platelet Count 241 X10*3/uL (160-400); Red Blood Count 4.30 X10*6/uL (4.20-5.50); White Blood Count 5.2 X10*3/uL (4.8-10.8)
[2025-03-17 17:15] LABS: Hemoglobin A1C 314.8996 umol/L; Total Hemoglobin (HGBA1C) 3309.3493 umol/L
[2025-03-17 17:37] LABS: Alanine Aminotransferase 17 U/L (0-31); Albumin Level 3.8 g/dL (3.5-5.0); Alkaline Phosphatase 86 U/L (39-117); Anion Gap 11 (12-20); Aspartate Amino Transferase 22 U/L (5-31); Blood Urea Nitrogen 11 mg/dL (9-16); Calcium 9.5 mg/dL (8.4-10.2); Carbon Dioxide 30 mmol/L (22-29); Chloride 105 mmol/L (96-108); Cholesterol 211 mg/dL (<200); Estimated Glomerular Filt Rate > 60; HDL Cholesterol 39 mg/dL (>40); Potassium 3.7 mmol/L (3.3-5.1); Sodium 142 mmol/L (135-145); Total Protein 6.9 g/dL (6.5-8.0); Triglycerides 386 mg/dL (<150)
== END 2025-03-17 14:50 | disposition home or self-care (01) ==
LOC: HO.US 14:49
PROVIDERS: PCP Internal Medicine; Visit Provider Physician Assistant
DX: R22.41 Localized swelling, mass and lump, right lower limb (principal); L53.9 Erythematous condition, unspecified; K21.9 Gastro-esophageal reflux disease without esophagitis; I25.10 Atherosclerotic heart disease of native coronary artery without angina pectoris; I11.0 Hypertensive heart disease with heart failure; I50.9 Heart failure, unspecified; M79.4 Hypertrophy of (infrapatellar) fat pad; E78.2 Mixed hyperlipidemia; E11.65 Type 2 diabetes mellitus with hyperglycemia; I50.32 Chronic diastolic (congestive) heart failure; I87.2 Venous insufficiency (chronic) (peripheral); Z86.711 Personal history of pulmonary embolism; Z79.899 Other long term (current) drug therapy
CPT/HCPCS: 36415; 80048; 80061; 80076; 83036; 85025; 93971; 99212

== ENCOUNTER → 2025-03-17 14:57 | Outpatient (BNV) | payer MEDICARE, OTHER, SELFPAY | PROVIDERS: PCP Internal Medicine; Visit Provider Radiology Diagnostic Radiology | DX: M79.604 Pain in right leg (principal) | CPT/HCPCS: 93971 ==

== ENCOUNTER 2025-04-07 12:15 | Outpatient (REF) | payer MEDICARE, OTHER, SELFPAY ==
--- OUTSIDE RECORDS SUMMARY | 2025-02-24 09:40 | XMS_ITS ---
Author Organization [facility] Address [address] [place] [address] Care Team Providers Care Wax Pot Tender Name Role Phone Amie (RETIRED) Armando COBB Primary Care Provide Valeriano Santana [phone] REASON FOR VISIT abdominal pain Encounters Encounter Location Date Provider Diagnosis [facility] [address] [place] [address] 02/24/2025 Valeriano Corona Plan Of Treatment Next Appt Details Provider Name:Valeriano Corona , 06/11/2025 02:20:00 PM, [address], [address], [place], [address], Progress Notes * CAROLEE SOLIMANNEDOB:1955 ( 69 yo F)Acc No.[id number]:02/24/2025 Progress Notes Patient: NA CASTELLANOS Provider: Sonali Corona MD :1955 A ge:69 Y S ex:Female Date:02/24/2025 Address:[address] [place] [address] Pcp:Armando Holloway (RETIRED )MD Subjective: * Chief [...] 02/24/2025 Generated for Clemencia guadalupe/Hunter/Juliana on: 0 04/07/2025 12:56 PM EDT
--- OUTSIDE RECORDS SUMMARY | 2025-04-07 12:56 | XMS_ITS | Patient Health Record ---
Author [facility] Address [address] [facility] [place] [address] Care Team Providers Care Gas Station Cashier Name Role Phone Armando Holloway MD Primary Care Provider Saira Carranza Unavailable [phone] Devan Kirkpatrick Unavailable [phone] Allergies Allergen (clinical drug ingredient) Drug/Non Drug [...] Administration Date Status Comme nts Influenza Unknown 08/17/2021 Refused COVID-19 Mikey [employer] Mikey/James Unknown 08/17/2021 R efused Social History Tobacco Use: Social History Observation [...] Polyneuropathy due to type 2 diabetes mellitus (354761515) Type 2 diabetes mellitus with diabetic polyneuropathy (E11.42) Active confirmed Problem Polyneuropathy due to diabetes mellitus type I (468938997) Type 1 diabetes mellitus with diabetic polyneuropathy (E10.42) Active confirmed Problem Lymphedema (I89.0) Active confirmed Plan Of Treatment Pending Test Test Name Order Date X ray : Foot, left 3V 12/19/2022 [id number] SKIN LESIONS, 2 TO 4 08/17/20 21 [id number] SKIN LESIONS, 2 TO 4 12/07/19 22 [id number] DYSTROPHIC NAILS ANY # [id number] DYSTROPHIC NAILS ANY # Insurance Providers Payer Name Payer Address Payer Phone Subscriber Number Group Number Insured Name Patient Relationship to Insured Coverage Start Date Coverage End Date Medicare National Govt Svcs Inc [address] [facility] [place] [address] [id number] ClairRachanane Self - patient is the insured [facility] [address] [place], [place] [address] [phone] [id number] Rachana Selfne Self - patient is the insured Medical (General) History Medical History History ICD Code Anemia asthma Back,Hip,and Knee pain Broken bones Cancer covid-19 High blood pressure Reflux ( GERD) Stomach ulcer Measles Chicken pox type II diabetes Surgical History Surgery Date(Month/Year) hysterectomy, vaginal endoscopic spinetoplast of major papila gall bladder inguinal hernia repair cyst removal-uterus Hospitalization History Reason Date(Month/Year) [facility] pancreatitis 6 days 11/25/21 [facility] 5 day stay 07/2021
--- OUTSIDE RECORDS SUMMARY | 2025-04-07 12:57 | XMS_ITS | Clinical Summary ---
Author Organization [facility] Address [address] [place] [address] Care Team Providers Care Hat Finishing Materials Preparer Name Role Phone Pcp, No Primary Care [...] day. 15 mL 5 Active pancrelipase (CREON) 48848-[address] Particles capsuleIndicatio ns:Severe acute [...] need to establish care with PCP and gunsmith apprentice for outpatient management Assessment & Plan (11/21/2024 [...] drink = 0.6 oz pur e alcohol) [facility] Utilities Answer Date Recorded In the past 12 months has [employer], gas, oil, or water [employer] threatened to shut off services in your [...] any time in the past 12 m [facility], were you homeless or living in a long term (including now)? No 11/18/2024 Comments Unknown Sex [...] - 99 mg/dL 11/23/2024 3:05 PM EDT [facility] Comment:Fasting: <100 mg/dL, Non-Fasting: <200 mg/dL (ADA 2005) Blood Urea Nitrogen (BUN) 9 8 - 21 mg/dL 11/23/2024 3:05 PM EDT [facility] Creatinine 0.8 0.4 - 1.1 mg/dL 11/23/2024 3:05 PM EDT [facility] eGFR 79 >59 11/23/2024 3:05 PM EDT [facility] Comment:CKD-EPI (2020) in mL /min/1.73 sq meters. Sodium 136 136 - 145 mmol/L 11/23/2024 3:05 PM EDT [facility] Potassium 3.9 3.4 - 5.3 mmol/L 11/23/2024 3:05 PM EDT [facility] Chloride 101 98 - 107 mmol/L 11/23/2024 3:05 PM EDT [facility] CO2 26 22 - 33 mmol/L 11/23/2024 3:05 PM EDT [facility] Calcium 9.5 8.7 - 10.5 mg/dL 11/23/2024 3:05 PM T [facility] Alkaline Phosphatase 70 32 - 122 U/L 11/23/2024 3:05 PM T [facility] Aspartate Aminotrans (AST) 27 10 - 50 U/L 11/23/2024 3:05 PM T [facility] Alanine Aminotrans (ALT) 14 10 - [...] DO LAB BLOOD ORDERABLES Final Resul t [address] [address], from Last 3 Months or Most Recently Relevant to Health Maintenance Insurance MEDICARE PART A & B [facility] [place]CR SUPPLEMENT ONLY [facility] SUPPLEMENT ONLY MEDICARE PART A & B Advance Directives * Full Code (Latest Code Status on File) Date Activated Date Inactivated Comments 11/17/2024 7:48 PM Question Answer Comments Decision Thoroughly Discussed with: Patient Care Teams Hat Finishing Materials Preparer Relationship Specialty Start Date End Date Pcp, No PCP - General General Medicine 11/18/24
== END 2025-04-07 12:16 | disposition home or self-care (01) ==
LOC: HO.MAMMO 12:15
PROVIDERS: PCP Internal Medicine; Visit Provider Internal Medicine
DX: Z12.31 Encounter for screening mammogram for malignant neoplasm of breast (principal)
CPT/HCPCS: 77063; 77067

== ENCOUNTER → 2025-04-07 12:15 | Outpatient (BNV) | payer MEDICARE, OTHER, SELFPAY | PROVIDERS: PCP Internal Medicine; Visit Provider Internal Medicine | DX: Z12.31 Encounter for screening mammogram for malignant neoplasm of breast (principal) | CPT/HCPCS: 77063; 77067 ==

== ENCOUNTER 2025-05-07 14:59 | Outpatient (REF) | payer MEDICARE, OTHER, SELFPAY ==
--- OUTSIDE RECORDS SUMMARY | 2023-12-18 08:00 | XMS_ITS ---
Author Organization [facility] Address [address] [place] [address] Care Team Providers Care Barrel Finisher Name Role Phone Armando Holloway MD Primary Care Provider UnavailSaira Swann Unavailable [phone] Devan Kirkpatrick Unavailable [phone] REASON FOR VISIT Painful thick toenails which [...] Active Encounters Encounter Location Date Provider Diagnosis [facility] [address] [place] [address] 12/18/2023 Devan Kirkpatrick Type 1 diabetes mellitus [...] or Cutting o f Benign Hyperkeratotic Lesion(s) 01738 (2-4 Lesions) - The Benign hyperkeratotic lesions, [...] as necessary. Patient chooses, no pharmaceutical tx (35183) Nail Reduction Nail Reduction Trimming of dyst rophic nails performed to reduce/remove overall nail length and girth, by manual and electrical means with use of a nail nipper and/or dremel, to more viable healthy nail plate or bed tissue 6-10 (G0127) Progress Notes * Rachana SOLIMANneDOB:1955 ( 70 yo F)Acc No.[id number]:12/18/2023 Progress Note Patient: Felecia CASTELLANOS Provider: Jane Kirkpatrick DPM :1955 A ge:68 Y S ex:Female Date:12/18/2023 Address:[address] [place] [address], [facility] Pcp:Armando Holloway MD Subjective: * Chief Complaints: [...] enies. C ardiovascular: Pacemaker d enies. M BLINDSTITCH HEMMER d enies. W PW d enies. C [...] left foot, unspecified phalanx, initial encounter - S92.781A Plan: * Treatment: 2. T inea pedis [...] as necessary. Patient chooses, no pharmaceutical tx (89663). K eratoma Treatment: Parring or Cutting of [...] 1720 DEBRIDE NAIL, 1-5, Modifiers: XS , 66483 TRIM SKIN LESIONS, 2 TO 4, Modifiers: XS , G0127 TRIMMING DYSTROPHIC NAILS ANY #, Modifiers: XS , 08786 X-RAY EXAM OF LEFT FOOT 3V, Modifiers: [...] 12/18/2023 Generated for Clemencia guadalupe/Hunter/eTminnie on: 0 05/07/2025 03:01 PM EDT History and Physical Notes * [...]
--- OUTSIDE RECORDS SUMMARY | 2024-09-16 05:00 | XMS_ITS ---
Author Organization [facility] Address [address] [place] [address] Care Team Providers Care Wound Specialist Name Role Phone Armando Holloway MD Primary Care Provider Unavaila Saira Hurst Unavailable [phone] Riley Encounters Encounter Location Date Provider Diagnosis [facility] [address] [place] [address] 09/16/2024 Saira Willett Plan Of Treatment No Information Progress Notes * Rachana SOLIMANOscarOB:1955 ( 70 yo F)Acc No.[id number]:09/16/2024 Progress Note Patient: Felecia CASTELLANOS Provider: Byron Willett DPM :1955 A ge:69 Y S ex:Female Date:09/16/2024 Address:[address] [facility] Pcp:Armando Holloway MD Subjective: * Chief Complaints: [...] 0 09/16/2024 Generated for Clemencia guadalupe/Hunter/eTransmitting on: 0 05/07/2025 03:01 PM EDT
--- OUTSIDE RECORDS SUMMARY | 2024-09-16 05:00 | XMS_ITS ---
Author Organization [facility] Address [address] [place] [address] Care Team Providers Care Surveying Technician Name Role Phone Armando Holloway MD Primary Care Provider Unavaila Saira Hurst Unavailable [phone] Devan Kirkpatrick Unavailable [phone] REASON FOR VISIT Transfer to Different Provider Encounters Encounter Location Date Provider Diagnosis [address] [address] 09/16/2024 Devan Kirkpatrick Plan Of Treatment No Information Progress Notes * Rachana SOLIMANneDOB:1955 ( 70 yo F)Acc No.[id number]:09/16/2024 Progress Note Patient: Felecia CASTELLANOS Provider: Jane Kirkpatrick DPM :1955 A ge:69 Y S ex:Female Date:09/16/2024 Address:[address] [facility] Pcp:Armando Holloway MD Subjective: * Chief Complaints: [...] 09/16/2024 Generated for Printi ng/Faramang/eTransmitting on: 0 05/07/2025 03:00 PM EDT
--- OUTSIDE RECORDS SUMMARY | 2024-10-27 06:50 | XMS_ITS ---
Author Organization [facility] Address [address] [place] [address] Care Team Providers Care Biofuels Plant Operations Engineer Name Role Phone Amie (RETIRED) Armando COBB Primary Care Provide Valeriano Santana [phone] REASON FOR VISIT Patient presents today for abdominal pain Encounters Encounter Location Date Provider Diagnosis [facility] [address] [place] [address] 10/27/2024 Valeriano Corona Plan Of Treatment Next Appt Details Provider Name:Valeriano Corona , 06/11/2025 02:20:00 PM, [address] [facility], [address], [place], [address], Progress Notes * CAROLEE SOLIMANNEDOB:1955 ( 70 yo F)Acc No.[id number]:10/27/2024 Progress Notes Patient: NA CASTELLANOS Provider: Sonali Corona MD :1955 A ge:69 Y S ex:Female Date:10/27/2024 Address:[address] [place] [address] Pcp:Armando Holloway (RETIRED )MD Subjective: * Chief [...] provider. Sign off status: Pending * Provider: oSnali Corona MD Date: 0 10/27/2024 Generated for Clemencia guadalupe/Hunter/Juliana on: 0 05/07/2025 03:01 PM EDT
--- OUTSIDE RECORDS SUMMARY | 2025-02-24 09:40 | XMS_ITS ---
Author Organization [facility] Address [address] [place] [address] Care Team Providers Care Ergonomics Engineer Name Role Phone Amie (RETIRED) Armando COBB Primary Care Provide Valeriano Santana [phone] REASON FOR VISIT abdominal pain Encounters Encounter Location Date Provider Diagnosis [facility] [address] [place] [address] 02/24/2025 Valeriano Corona Plan Of Treatment Next Appt Details Provider Name:Valeriano Corona , 06/11/2025 02:20:00 PM, [address], [address], [place], [address], Progress Notes * CAROLEE SOLIMANNEDOB:1955 ( 70 yo F)Acc No.[id number]:02/24/2025 Progress Notes Patient: NA CASTELLANOS Provider: Sonlai Corona MD :1955 A ge:69 Y S ex:Female Date:02/24/2025 Address:[address] [place] [address] Pcp:Armando Holloway (RETIRED )MD Subjective: * Chief [...] 02/24/2025 Generated for Clemencia guadalupe/Hunter/Juliana on: 0 05/07/2025 03:01 PM EDT
--- NOTE | ~2025-05-07 | US_ITS ---
EXAMINATIONS: 1. MM DIAGNOSTIC DIGITAL BREAST TOMOSYNTHESIS, LEFT 2. Targeted ultrasound of the left breast CLINICAL INFORMATION: -Callback from screening for left breast focal asymmetry with questioned architectural distortion in the retroareolar region/upper central breast middle depth. -Additional information provided by the patient: Patient had trauma and had bruise in the upper aspect of the left breast approximately one week before the screening mammogram. COMPARISON: Comparison made to multiple prior, most recent April 07, 2025, and most remote July 24, 2016. TECHNIQUE: Digital breast tomosynthesis is performed in full-field ML 90 degrees along with computer-aided detection (CAD). Synthesized 2D images are generated from the tomosynthesis. Spot compression tomosynthesis images were also obtained. FINDINGS: BREAST COMPOSITION: There are scattered areas of fibroglandular density (ACR BI-RADS breast composition Category b). LEFT BREAST: Previously suggested focal asymmetry in the upper breast approximately 12 o'clock position at 12 cm from the nipple partially effaces with spot compression. Targeted ultrasound of the left breast was performed at the location of the mammographic finding. The survey performed from 10:00 to 2:00 positions did not reveal fluid collections or suspicious sonographic findings. US/US breast LT limited mamm only IMPRESSION: LEFT BREAST: Focal asymmetry in the upper breast at approximately 12 o'clock position 12 cm from the nipple may be a combination of overlapping fibroglandular breast tissue and superimposed posttraumatic changes. No obvious posttraumatic changes or suspicious findings on the ultrasound. Probably benign. A 6-month follow-up mammogram is recommended. ASSESSMENT: BI-RADS 3 - Probably benign finding(s) - 6 month follow-up suggested RECOMMENDATION: 6 Month F/U Results were provided to the patient at time of visit by the technologist. This patient's information was entered into a reminder system with a target due date for their next mammogram. Electronically signed by: Mirza Grajeda MD 05/07/2025 04:11 PM EDT
--- OUTSIDE RECORDS SUMMARY | 2025-05-07 15:01 | XMS_ITS | Clinical Summary ---
Author Organization [facility] Address [address] [place] [address] Care Team Providers Care Paper Bag Making Machinist Name Role Phone Pcp, No Primary Care [...] day. 15 mL 5 Active pancrelipase (CREON) [address] Particles capsuleIndicatio ns:Severe acute [...] need to establish care with PCP and polygraph operator for outpatient management Assessment & Plan [...] drink = 0.6 oz pur e alcohol) [facility] Utilities Answer Date Recorded In the past 12 months has [employer], gas, oil, or water [employer] threatened to shut off services in your [...] any time in the past 12 m [facility], were you homeless or living in a detention (including now)? No 11/18/2024 Comments Unknown Sex [...] Health Maintenance Due Date Last Done Comments Advance Care Planning 1955 Hepatitis C Virus Screening 1955 Foot Exam [...] es 65 and older) 2018 COVID-19 Vaccine ( - 2023-2 5 season) 2024 Influenza Vaccine [...] - 99 mg/dL 11/23/2024 3:05 PM EDT [facility] Comment:Fasting: <100 mg/dL, Non-Fasting: <200 mg/dL (ADA 2005) Blood Urea Nitrogen (BUN) 9 8 - 21 mg/dL 11/23/2024 3:05 PM EDT [facility] Creatinine 0.8 0.4 - 1.1 mg/dL 11/23/2024 3:05 PM EDT [facility] eGFR 79 >59 11/23/2024 3:05 PM EDT [facility] Comment:CKD-EPI (2020) in mL /min/1.73 sq meters. Sodium 136 136 - 145 mmol/L 11/23/2024 3:05 PM EDT [facility] Potassium 3.9 3.4 - 5.3 mmol/L 11/23/2024 3:05 PM EDT [facility] Chloride 101 98 - 107 mmol/L 11/23/2024 3:05 PM EDT [facility] CO2 26 22 - 33 mmol/L 11/23/2024 3:05 PM T [facility] Calcium 9.5 8.7 - 10.5 mg/dL 11/23/2024 3:05 PM [facility] Alkaline Phosphatase 70 32 - 122 U/L 11/23/2024 3:05 PM [facility] Aspartate Aminotrans (AST) 27 10 - 50 U/L 11/23/2024 3:05 PM [facility] Alanine Aminotrans (ALT) 14 10 - 50 U/L 11/23/2024 3:05 PM [facility] Bilirubin, Total 0.4 0.2 - 1.0 mg/dL 11/23/2024 3:05 PM [facility] Protein, Total 6.6 6.3 - 8.3 g/dL 11/23/2024 3:05 PM [facility] Albumin 3.5 3.4 - 4.8 g/dL 11/23/2024 3:05 PM [facility] BUN/Creatinine Ratio 11 10.0 - 25.0 Ratio 11/23/2024 3:05 PM [facility] Globulin 3.1 1.5 - 3.9 g/dL 11/23/2024 3:05 PM [facility] Albumin/Globulin Ratio 1.1 1.0 - 3.0 Ratio 11/23/2024 3:05 PM [facility] Anion Gap 9 7 - 17 11/23/2024 3:05 PM [facility] Blood Blood specimen / Unknown 11/23/2024 2:23 PM EDT 11/23/2024 2:30 PM EDT us Darrellr Aurea Koenig DO LAB BLOOD ORDERABLES Final Resul t [address] [address], from Last 3 Months or Most Recently Relevant to Health Maintenance Insurance MEDICARE PART A & B [facility] SUPPLEMENT ONLY [facility] SUPPLEMENT ONLY MEDICARE PART A & B Advance Directives * Full Code (Latest Code Status on File) Date Activated Date Inactivated Comments 11/17/2024 7:48 PM Question Answer Comments Decision Thoroughly Discussed with: Patient Care Teams Paper Bag Making Machinist Relationship Specialty Start Date End Date Pcp, No PCP - General General Medicine 11/18/24
--- OUTSIDE RECORDS SUMMARY | 2025-05-07 15:01 | XMS_ITS | Patient Health Record ---
Author Organization [facility] Address [address] [place] [address] Care Team Providers Care Fan Runner Name Role Phone Amie (RETIRED) Armando COBB Primary Care Provide Valeriano Santana [phone] Allergies Allergen (clinical drug ingredient) Drug/Non Drug [...] Problem Status W/U Status Risk Notes Problem 010459703 Encounter for screening for malignant neoplasm of colon (Z12.11) Active confirmed Problem Diverticular disease of colon (317730602) Diverticulosis of large intestine without perforation or abscess without bleeding (K57.30) Active confirmed Problem 510096998 Other chronic pancreatitis (K86.1) Active confirmed Problem Screening for malignant neoplasm of rectum (382199004) Encounter for screening for malignant neoplasm of rectum (Z12.12) Active confirmed Problem 049582898 Gastroesophageal reflux disease without esophagitis (K21.9) Active confirmed Problem 798264528 Barretts esophag us without dysplasia (K22.70) Active confirmed Problem 914562794 Gastroesophageal reflux disease, esophagitis presence not specified (K21.9) Active confirmed Problem 376121737 Family history o f colon cancer (Z80.0) Active confirmed Problem 07196742 Constipation, unspecified constipation type (K59.00) Active confirmed Problem Gastritis (9429000) Gastritis (K29.70) Active c onfirmed Problem Ro esophagus (858748301) 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) Active confirmed Problem Gastroesophageal reflux disease (749478256) Esophageal reflux disease (K21.9) Active confirmed Problem 21751964 Hypertension, unspecified type (I10) Active confirmed Problem 14370878 Esophageal dysphagia (R13.10) Active confirmed Encounters Encounter Location Date Provider Diagnosis [facility] [address] [place] [address] 10/27/2024 Valeriano Corona [facility] [address] [place] [address] 02/24/2025 Valeriano Corona Plan Of Treatment Pending Test [...] Name:Valeriano Corona , 06/11/2025 02:20:00 PM, [address], [address], [place], [address], Insurance Providers Payer Name Payer Address Payer Phone Subscriber Number Group Number Insured Name Patient Relationship to Insured Coverage Start Date Coverage End Date MEDICARE [place] [address] [place] [address] [id number] NA SOLIMAN Self - patient is the insured [facility] [address] [place] [address] [id number] NA SOLIMAN Self - patient is the [...] HEMA Pulmonary embolus Endometrial cancer-s/p Hysterectomy Denies HI,CVA,renal disease Hypertriglyceridemia She had negative colonoscopies in [...] to her pancreas divisum-Dr. Aggarwal at [facility] Surgical minor sphincteropla sty to try to treat pancreatitis in relation to her pancreas divisum-at [facility] with Dr. Clemente Cholescystectomy 11/1997 Right knee Wrist
--- OUTSIDE RECORDS SUMMARY | 2025-05-07 15:01 | XMS_ITS | Patient Health Record ---
Author Organization [facility] Address [address] [facility] [place] [address] Care Team Providers Care Dust Sampler Name Role Phone Armando Holloway MD Primary Care Provider Saira Carranza Unavailable [phone] Devan Kirkpatrick Unavailable [phone] Allergies Allergen (clinical drug ingredient) Drug/Non Drug [...] Polyneuropathy due to type 2 diabetes mellitus (805138336) Type 2 diabetes mellitus with diabetic polyneuropathy (E11.42) Active confirmed Problem Polyneuropathy due to diabetes mellitus type I (819663137) Type 1 diabetes mellitus with diabetic polyneuropathy (E10.42) Active confirmed Problem Lymphedema (I89.0) Active confirmed Plan Of Treatment Pending Test Test Name Order Date X ray : Foot, left 3V 12/19/2022 [id number] SKIN LESIONS, 2 TO 4 08/17/20 21 [id number] SKIN LESIONS, 2 TO 4 12/07/19 22 [id number] DYSTROPHIC NAILS ANY # [id number] DYSTROPHIC NAILS ANY # Insurance Providers Payer Name Payer Address Payer Phone Subscriber Number Group Number Insured Name Patient Relationship to Insured Coverage Start Date Coverage End Date Medicare National Govt Svcs Inc [address] [place] [address] [id number] ClairRachanane Self - patient is the insured [facility] [address] [place], [place] [address] [id number] Rachana Selfne Self - patient is the insured Medical (General) History Medical History History ICD Code Anemia asthma Back,Hip,and Knee pain Broken bones Cancer covid-19 High blood pressure Reflux ( GERD) Stomach ulcer Measles Chicken pox type II diabetes Surgical History Surgery Date(Month/Year) hysterectomy, vaginal endoscopic spinetoplast of major papila gall bladder inguinal hernia repair cyst removal-uterus Hospitalization History Reason Date(Month/Year) [facility] pancreatitis 6 days 11/25/21 [facility] 5 day stay 07/2021
== END 2025-05-07 15:00 | disposition home or self-care (01) ==
LOC: HO.MAMMO 14:59
PROVIDERS: PCP Internal Medicine; Visit Provider Internal Medicine
DX: N64.89 Other specified disorders of breast (principal)
CPT/HCPCS: 76642; 77061; 77065

== ENCOUNTER → 2025-05-07 15:00 | Outpatient (BNV) | payer MEDICARE, OTHER, SELFPAY | PROVIDERS: PCP Internal Medicine; Visit Provider Radiology Body Imaging | DX: R92.8 Other abnormal and inconclusive findings on diagnostic imaging of breast (principal) | CPT/HCPCS: 76642; 77065; G0279 ==

== ENCOUNTER 2025-05-11 14:12 | Outpatient (AMB) | payer MEDICARE, OTHER, SELFPAY ==
--- NOTE | 2025-05-11 14:16 | MHC.OFFVIS ---
Vital Signs 05/11/25 14:20 Height 5 ft 2 in Weight 236 lb 15.951 oz BMI 43.3 BP 158/64 H Blood Pressure Location Rt brachial Position Sitting Pulse 67 Pulse Source Pulse Oximeter Pulse Oximetry (%) 98 Oxygen Delivery Method Room Air Intake Visit Reasons: Type 2 diabetes mellitus without complications Intake Note: New patient internally referred by PCP for T2DM. Patient states she is using [employer] diabetes testing supply. Last Diabetic Eye exam: December or January 2025 [facility] Last Podiatry Visit: approx 1.5 years, [facility] Random Glucose: 86 mg/dl, 43 mg/dl 3:01 pm, 82 mg/dl 3:23 pm Hgb A1C: 10.9% 03/17/2025 Customer Experience Analyst Required: No Accompanied by: Spouse Allergies gentamicin Allergy (Severe, Verified 05/11/25 14:23) Difficulty Breathing Iodinated Contrast Media Allergy (Severe, Verified 05/11/25 14:23) Difficulty Breathing, nausea and vomiting latex (LATEX) Allergy (Severe, Verified 05/11/25 14:23) Anaphylaxis morphine Allergy (Severe, Verified 05/11/25 14:23) Anaphylaxis Penicillins Allergy (Severe, Verified 05/11/25 14:23) stopped breathing as an infant shellfish derived (SHELLFISH DERIVED) Allergy (Severe, Verified 05/11/25 14:23) Difficulty Breathing, swelling vancomycin Allergy (Severe, Verified 05/11/25 14:23) Difficulty Breathing azithromycin Allergy (Unknown, Verified 05/11/25 14:23) Unknown erythromycin base Allergy (Unknown, Verified 05/11/25 14:23) Unknown esomeprazole Allergy (Unknown, Verified 05/11/25 14:23) Unknown pantoprazole Adverse Reaction (Mild, Verified 05/11/25 14:23) Nausea and Vomiting Medication List - Last Reconciled 05/11/25 by Valeriano Wells MD albuterol sulfate 90 mcg/actuation inhalation atorvastatin 40 mg PO DAILY enalapril maleate 20 mg PO BID fenofibrate nanocrystallized 145 mg PO DAILY gabapentin 600 mg PO BEDTIME hydralazine 50 mg PO BID insulin aspart U-100 1 sliding scale dose subcut QIDACHS insulin degludec (Tresiba FlexTouch U-100 insulin) 50 units (0.5 mL) subcut BID lansoprazole 30 mg PO BID metoprolol tartrate 200 mg PO BEDTIME oxycodone 10 mg PO BID PRN prednisone 10 mg PO DIRECTED torsemide 40 mg PO DAILY HPI Comments Details: Patient is a 70-year-old female with DM type 2 diagnosed at age 38, who presents for management of diabetes. Patient was last seen 05/24/2021 by Nathaly Reyes NP . During the continuous glucose monitoring trial she had an episode of pancreatitis and had to decrease the dose of insulin due to hypoglycemia. Past medical history: DM2, HLD, HTG, HTN, recurrent pancreatitis Micro and macrovascular complications: + nephropathy, + neuropathy, + CAD Diabetes medications: Tresiba 60 units Novolog BG <111 0 units, 111-150 - 0 units, 151-200 2 units, 201-250 4 units, 251-300 6 units, 301-350 8 units, >350 10 units Max daily dose 40 units Unfortunately, patient did not bring log book, glucometer or sensor to visit Reports wkly basis of hypoglycemia Symptoms reported: numbness, tingling, cramping in lower extremities Hypoglycemia: , symptoms of sweating and disoriented, when forgets to eat, uses glucose tabs. Rechecks 15 min later Hyperglycemia: urinary frequency, polydypsia and nocturia when blood glucose . Tobacco Cloth Reclaimer - CDE education: once awhile ago. Nitrocellulose Maker: waiting for appointment . Ophthalmology evaluation: January 2025 , she denies retinopathy . 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 Laboratory Tests 01/31/21 02/03/21 02/03/21 15:47 14:26 14:26 Creatinine Estimated GFR Hgb A1c (Clinic) 9.2 H Hemoglobin A1c % 10.2 Triglycerides 528 Cholesterol 197 LDL Cholesterol Direct HDL Cholesterol 32 02/03/21 05/22/21 14:26 11:30 Creatinine 1.03 Estimated GFR 53 Hgb A1c (Clinic) Hemoglobin A1c % Triglycerides Cholesterol LDL Cholesterol Direct 43 HDL Cholesterol 09/27/20 15:50 Microalb/Creat Ratio 18.2 [facility] Medical History (Updated 03/17/25 @ 15:53 by RODNEY Johnston) Venous stasis dermatitis Pancreatitis Chronic pancreatitis Hypertriglyceridemia Asthma Endometrial cancer Barretts esophagus GERD (gastroesophageal reflux disease) Pancreatic divisum CAD (coronary artery disease) 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 Diabetes type 2, uncontrolled Cervical cancer Other and unspecified hyperlipidemia Essential hypertension Vitamin D deficiency T2DM (type 2 diabetes mellitus) HLD (hyperlipidemia) HTN (hypertension) Accelerated essential hypertension Embolism Surgical History History of esophagogastroduodenoscopy (EGD) Hx of colonoscopy (~07/03/23) Hx of removal of cyst Hx of hernia repair Hx of cholecystectomy Hx of endoscopy Hx of hysterectomy Family History Father Diabetes Mother Diabetes Social History Household Members: Spouse Housing: House Do you presently have visiting nurse or other home services: No Alcohol intake: never Comment: sleeping Patient Tobacco Use Status: Former Tobacco user e-Cigarette/Vaping Use: Former Use service: No Current occupational status: employed Current occupation: [employer] Cognitive needs: No Hearing needs: No Vision needs: Yes (rx glasses) Physical Exam Vital Signs: Last Vital Signs Pulse 67 05/11/25 14:20 BP 158/64 H 05/11/25 14:20 Pulse Ox 98 05/11/25 14:20 Oxygen Delivery Method Room Air 05/11/25 14:20 BMI result Body Mass Index 43.3 Absence of Cushingoid features. Absence of acromegalic features. Neck exam reveals nl size thyroid about 15 gms. No thyroid nodules palpable. No carotid bruits present. Lungs CTA. Heart S1 S2, Reg R/R. No M/R/ G. Skin exam reveals absence of vitiligo or acanthosis nigricans. Abdominal exam reveals Soft NT/ND with NA BS. No organomegaly present. Neck Other: . Extrem Other: Visual exam of foot performed. 3 + pitting edema to ankles No ulcerations or open lesions. No onchomycosis, no callouses.Pulses 2 + distally Sensation intact to monofilament exam. Vibratory sensation sensed is decreased with 128 Hz tuning fork Results Reviewed Results Reviewed: Laboratory Last Values Glucose (Clinic) 82 mg/dL (60-115) 05/11/25 15:23 Assessment & Plan Assessment & Plan (1) Diabetes type 2, uncontrolled: Code(s): E11.65 - Type 2 diabetes mellitus with hyperglycemia Category: Medical Qualifiers: Glycemic state: with hyperglycemia Qualified Code(s): E11.65 - Type 2 diabetes mellitus with hyperglycemia Plan: This is a 70-year-old white female with a history of type 2 diabetes in the setting of chronic pancreatitis being treated with basal insulin with poor glycemic control and known microvascular macrovascular complications namely neuropathy, nephropathy and CAD The plan is to initiate a continuous glucose sensorsuch as Bettie 3 plus. Can not make any changes to the insulin regimen because of lack of data. Will refer to certified diabetes educator and breaker up machine operator. Went over with the patient in detail the correlation of poor glycemic control to development of progression of complications. Once there is more data, could consider initiating an SGLT2 inhibitor like Jardiance . I also prescribed glucagon pen G- Voke. Lastly, we talked about long-term management perhaps with a insulin pump connected to a sensor and this can be pursued in the future The patient had persistent hypoglycemia throughout the visit that was corrected with glucose tablets self administer as well as OJ. A recheck of blood sugar was . Patient was instructed about the treatment of hypoglycemia and use of glucagon as was her Orders: Orders Microalbumin, Random (w Creat) 05/11/25 E11.65 - Type 2 diabetes mellitus with hyperglycemia Referrals Nutrition/Dietitian Referral E11.65 - Type 2 diabetes mellitus with hyperglycemia Diabetes Education Referral E11.65 - Type 2 diabetes mellitus with hyperglycemia Medications: New blood-glucose sensor (FreeStyle Bettie 3 Plus Sensor device) As directed change every 14 days 2 ea 5RF glucagon (Gvoke HypoPen 2-Pack) 1 mg (0.2 mL) subcut ONCE 0.4 mL 4RF Coding Level of Care Code Est Pt Level 4 (76815) Diagnoses Uncontrolled type 2 diabetes mellitus with hyperglycemia E11.65 Glycemic state: with hyperglycemia
[2025-05-11 14:20] VITALS: BP 158/64; PULSE 67; O2SAT 98; BMI 43.3
[2025-05-11 14:35] LABS: Glucose, Whole Blood 86 mg/dL (60-115)
--- OUTSIDE RECORDS SUMMARY | 2025-05-11 15:27 | XMS_ITS | Clinical Summary ---
Author Organization [facility] Address [address] [place] [address] Care Team Providers Care Wet Wheeler Name Role Phone Pcp, No Primary Care [...] day. 15 mL 5 Active pancrelipase (CREON) [address] Particles capsuleIndicatio ns:Severe acute [...] need to establish care with PCP and bander for outpatient management Assessment & Plan (11/21/2024 [...] drink = 0.6 oz pur e alcohol) [facility] Utilities Answer Date Recorded In the past 12 months has [employer] gas, oil, or water [employer] threatened to shut off services in your [...] any time in the past 12 m [facility], were you homeless or living in a [facility] (including now)? No 11/18/2024 Comments Unknown Sex [...] - 99 mg/dL 11/23/2024 3:05 PM EDT [facility] Comment:Fasting: <100 mg/dL, Non-Fasting: <200 mg/dL (ADA 2005) Blood Urea Nitrogen (BUN) 9 8 - 21 mg/dL 11/23/2024 3:05 PM EDT [facility] Creatinine 0.8 0.4 - 1.1 mg/dL 11/23/2024 3:05 PM EDT [facility] eGFR 79 >59 11/23/2024 3:05 PM EDT [facility] Comment:CKD-EPI (2020) in mL /min/1.73 sq meters. Sodium 136 136 - 145 mmol/L 11/23/2024 3:05 PM EDT [facility] Potassium 3.9 3.4 - 5.3 mmol/L 11/23/2024 3:05 PM EDT [facility] Chloride 101 98 - 107 mmol/L 11/23/2024 3:05 PM EDT [facility] CO2 26 22 - 33 mmol/L 11/23/2024 3:05 PM T [facility] Calcium 9.5 8.7 - 10.5 mg/dL 11/23/2024 3:[address] [facility] Alkaline Phosphatase 70 32 - 122 U/L 11/23/2024 3:05 PM [facility] Aspartate Aminotrans (AST) 27 10 - 50 U/L 11/23/2024 3:05 PM [facility] Alanine Aminotrans (ALT) 14 10 - 50 U/L 11/23/2024 3:05 PM [facility] Bilirubin, Total 0.4 0.2 - 1.0 mg/dL 11/23/2024 3:05 PM [facility] Protein, Total 6.6 6.3 - 8.3 g/dL 11/23/2024 3:05 PM [facility] Albumin 3.5 3.4 - 4.8 g/dL 11/23/2024 3:05 PM [facility] BUN/Creatinine Ratio 11 10.0 - 25.0 Ratio 11/23/2024 3:05 PM [facility] Globulin 3.1 1.5 - 3.9 g/dL 11/23/2024 3:05 PM [facility] Albumin/Globulin Ratio 1.1 1.0 - 3.0 Ratio 11/23/2024 3:05 PM [facility] Anion Gap 9 7 - 17 11/23/2024 3:05 PM [facility] Blood Blood specimen / Unknown 11/23/2024 2:23 PM EDT 11/23/2024 2:30 PM EDT us Darrellr Aurea Koenig DO LAB BLOOD ORDERABLES Final Resul t [address] [address], from Last 3 Months or Most Recently Relevant to Health Maintenance Insurance MEDICARE PART A & B [facility] SUPPLE[facility] ONLY [facility] SU[employer] ONLY MEDICARE PART A & B Advance Directives * Full Code (Latest Code Status on File) Date Activated Date Inactivated Comments 11/17/2024 7:48 PM Question Answer Comments Decision Thoroughly Discussed with: Patient Care Teams Wet Wheeler Relationship Specialty Start Date End Date Pcp, No PCP - General General Medicine 11/18/24
[2025-05-11 15:28] LABS: Glucose, Whole Blood 43 mg/dL (60-115)
[2025-05-11 15:28] LABS: Glucose, Whole Blood 82 mg/dL (60-115)
== END 2025-05-11 15:32 | disposition home or self-care (01) ==
LOC: HO.ENCR 14:13
PROVIDERS: PCP Internal Medicine; Visit Provider Internal Medicine Endocrinology, Diabetes & Metabolism
DX: E11.65 Type 2 diabetes mellitus with hyperglycemia (principal)
CPT/HCPCS: 99214

== ENCOUNTER → 2025-05-11 14:12 | Outpatient (BNVA) | payer MEDICARE, OTHER, SELFPAY | PROVIDERS: PCP Internal Medicine; Visit Provider Internal Medicine Endocrinology, Diabetes & Metabolism | DX: E11.65 Type 2 diabetes mellitus with hyperglycemia (principal); Z79.4 Long term (current) use of insulin | CPT/HCPCS: 82947; 99212 ==

== ENCOUNTER 2025-06-08 16:33 | Outpatient (REF) | payer MEDICARE, OTHER, SELFPAY ==
--- OUTSIDE RECORDS SUMMARY | 2023-12-18 08:00 | XMS_ITS ---
Author Organization [facility] Address [address] [place] [address] Care Team Providers Care Shochet Name Role Phone Armando Holloway MD Primary Care Provider UnavailSaira Swann Unavailable [phone] Devan Kirkpatrick Unavailable [phone] REASON FOR VISIT Painful thick toenails which [...] Active Encounters Encounter Location Date Provider Diagnosis [facility] [address] [place] [address] 12/18/2023 Devan Kirkpatrick Type 1 diabetes mellitus [...] or Cutting o f Benign Hyperkeratotic Lesion(s) 15189 (2-4 Lesions) - The Benign hyperkeratotic lesions, [...] as necessary. Patient chooses, no pharmaceutical tx (72471) Nail Reduction Nail Reduction Trimming of dyst rophic nails performed to reduce/remove overall nail length and girth, by manual and electrical means with use of a nail nipper and/or dremel, to more viable healthy nail plate or bed tissue 6-10 (G0127) Progress Notes * Rachana SOLIMANneDOB:1955 ( 70 yo F)Acc No.[id number]:12/18/2023 Progress Note Patient: Felecia CASTELLANOS Provider: Jane Kirkpatrick DPM :1955 A ge:68 Y S ex:Female Date:12/18/2023 Address:[address] [place] [address], [facility] Pcp:Armando Holloway MD Subjective: * Chief Complaints: [...] enies. C ardiovascular: Pacemaker d enies. M TOBACCO PRIMER MACHINE OPERATOR d enies. W PW d enies. C [...] left foot, unspecified phalanx, initial encounter - S92.471A Plan: * Treatment: 2. T inea pedis [...] as necessary. Patient chooses, no pharmaceutical tx (10469). K eratoma Treatment: Parring or Cutting of [...] 1720 DEBRIDE NAIL, 1-5, Modifiers: XS , 00983 TRIM SKIN LESIONS, 2 TO 4, Modifiers: XS , G0127 TRIMMING DYSTROPHIC NAILS ANY #, Modifiers: XS , 23699 X-RAY EXAM OF LEFT FOOT 3V, Modifiers: 26 , LT * Follow Up: 3 Months * Images: * The named appointment provid er may or may not be the originator of this progress note, and it is not deemed complete until electronically signed by the appointment provider. Sign off status: Pending * Provider: DAVID GuidoM Date: 0 12/18/2023 Generated for Clemencia guadalupe/Hunter/eTminnie on: 0 06/08/2025 05:17 PM EDT History and Physical Notes * [...]
--- OUTSIDE RECORDS SUMMARY | 2024-09-16 05:00 | XMS_ITS ---
Author Organization [facility] Address [address] [place] [address] Care Team Providers Care Manager Employee Relations Name Role Phone Armando Holloway MD Primary Care Provider Unavaila Saira Hurst Unavailable [phone] Riley Encounters Encounter Location Date Provider Diagnosis [facility] [address] [place] [address] 09/16/2024 Saira Willett Plan Of Treatment No Information Progress Notes * Rachana SOLIMANOscarOB:1955 ( 70 yo F)Acc No.[id number]:09/16/2024 Progress Note Patient: Felecia CASTELLANOS Provider: Byron Willett DPM :1955 A ge:69 Y S ex:Female Date:09/16/2024 Address:[address] [facility] Pcp:Armando Holloway MD Subjective: * Chief Complaints: [...] 09/16/2024 Generated for Clemencia guadalupe/Hunter/eTransmitting on: 0 06/08/2025 05:17 PM EDT
--- OUTSIDE RECORDS SUMMARY | 2024-09-16 05:00 | XMS_ITS ---
Author Organization [facility] Address [address] [place] [address] Care Team Providers Care Processor Solid Propellant Name Role Phone Armando Holloway MD Primary Care Provider Unavaila Saira Hurst Unavailable [phone] Devan Kirkpatrick Unavailable [phone] REASON FOR VISIT Transfer to Different Provider Encounters Encounter Location Date Provider Diagnosis [address] [address] 09/16/2024 Devan Kirkpatrick Plan Of Treatment No Information Progress Notes * Rachana SOLIMANneDOB:1955 ( 70 yo F)Acc No.[id number]:09/16/2024 Progress Note Patient: Felecia CASTELLANOS Provider: Jane Kirkpatrick DPM :1955 A ge:69 Y S ex:Female Date:09/16/2024 Address:[address] [facility] Pcp:Armando Holloway MD Subjective: * Chief Complaints: [...] 0 09/16/2024 Generated for Printi ng/Faramang/eTransmitting on: 0 06/08/2025 05:16 PM EDT
--- OUTSIDE RECORDS SUMMARY | 2024-10-27 06:50 | XMS_ITS ---
Author Organization [facility] Address [address] [place] [address] Care Team Providers Care Chief Port Director Name Role Phone Amie (RETIRED) Armando COBB Primary Care Provide Valeriano Santana [phone] REASON FOR VISIT Patient presents today for abdominal pain Encounters Encounter Location Date Provider Diagnosis [facility] [address] [place] [address] 10/27/2024 Valeriano Corona Plan Of Treatment Next Appt Details Provider Name:Valeriano Corona , 06/11/2025 02:20:00 PM, [address] [facility], [address], [place], [address], Progress Notes * CAROLEE SOLIMANNEDOB:1955 ( 70 yo F)Acc No.[id number]:10/27/2024 Progress Notes Patient: NA CASTELLANOS Provider: Sonali Corona MD :1955 A ge:69 Y S ex:Female Date:10/27/2024 Address:[address] [place] [address] Pcp:Armando Holloway (RETIRED )MD Subjective: * Chief Complaints: * 1 . Patient presents today for abdominal pain. * Medical History: Objective: * Vitals: Assessment: Plan: * Treatment: * * The named appointment provid er may or may not be the originator of this progress note, and it is not deemed complete until electronically signed by the appointment provider. Sign off status: Pending * Provider: Sonali Corona MD Date: 0 10/27/2024 Generated for Clemencia guadalupe/Hunter/Juliana on: 0 06/08/2025 05:16 PM EDT
--- OUTSIDE RECORDS SUMMARY | 2025-02-24 09:40 | XMS_ITS ---
Author Organization [facility] Address [address] [place] [address] Care Team Providers Care Auto Parts Counter Person Name Role Phone Amie (RETIRED) Armando COBB Primary Care Provide Valeriano Santana [phone] REASON FOR VISIT abdominal pain Encounters Encounter Location Date Provider Diagnosis [facility] [address] [place] [address] 02/24/2025 Valeriano Corona Plan Of Treatment Next Appt Details Provider Name:Valeriano Corona , 06/11/2025 02:20:00 PM, [address], [address], [place], [address], Progress Notes * CAROLEE SOLIMANNEDOB:1955 ( 70 yo F)Acc No.[id number]:02/24/2025 Progress Notes Patient: NA CASTELLANOS Provider: Sonali Corona MD :1955 A ge:69 Y S ex:Female Date:02/24/2025 Address:[address] [place] [address] Pcp:Armando Holloway (RETIRED )MD Subjective: * Chief [...] 0 02/24/2025 Generated for Clemencia guadalupe/Hunter/Juliana on: 0 06/08/2025 05:16 PM EDT
--- OUTSIDE RECORDS SUMMARY | 2025-06-08 17:16 | XMS_ITS | Patient Health Record ---
Author [facility] Address [address] [place] [address] Care Team Providers Care Radio Assembler Name Role Phone Armando Holloway MD Primary Care Provider Saira Carranza Unavailable [phone] Devan Kirkpatrick Unavailable [phone] Allergies Allergen (clinical drug ingredient) Drug/Non Drug [...] Polyneuropathy due to type 2 diabetes mellitus (580493851) Type 2 diabetes mellitus with diabetic polyneuropathy (E11.42) Active confirmed Problem Polyneuropathy due to diabetes mellitus type I (184804877) Type 1 diabetes mellitus with diabetic polyneuropathy (E10.42) Active confirmed Problem Lymphedema (80550457) Lymphedema (I89.0) Active confirmed Plan Of Treatment Pending Test Test Name Order Date X ray : Foot, left 3V 12/19/2022 [id number] SKIN LESIONS, 2 TO 4 08/17/20 21 [id number] SKIN LESIONS, 2 TO 4 12/07/19 22 [id number] DYSTROPHIC NAILS ANY # [id number] DYSTROPHIC NAILS ANY # Insurance Providers Payer Name Payer Address Payer Phone Subscriber Number Group Number Insured Name Patient Relationship to Insured Coverage Start Date Coverage End Date Medicare [employer] [address] [place] [address] [id number] Felecia Self Self - patient is the insured [facility] [address] [place] [address] [id number] [place] Felecia Self - patient is the insured Medical [...] Reason Date(Month/Year) [facility] pancreatitis 6 days 11/25/21 [facility] 5 day stay 07/2021
--- OUTSIDE RECORDS SUMMARY | 2025-06-08 17:17 | XMS_ITS | Patient Health Record ---
Author Organization [facility] Address [address] [place] [address] Care Team Providers Care Commodities Trader Name Role Phone Amie (RETIRED) Armando COBB Primary Care Provide Valeriano Santana [phone] Allergies Allergen (clinical drug ingredient) Drug/Non Drug Allergy documented on EMR Reaction Allergy Type Onset Date Status esomeprazole Nexium (uncoded) Unknown Allergy Active Latex latex (uncoded) Unknown Allergy Acti ve Shellfish (FN) shell fish (uncoded) Unknown Allergy Active CT Scan dye (uncoded) Unknown Allergy Active Penicillin Unknown Drug Allergy Active vancomycin Vancomycin HCl Unknown Drug Allergy A ctive tetracycline Tetracycline HCl Unknown Drug Allergy Active morphine Morphine Sulfate Unknown Drug Allergy Active gentamicin Gentamicin Sulfate Unknown Drug Allergy Active Reason For [...] Problem Status W/U Status Risk Notes Problem 804969659 Encounter for screening for malignant neoplasm of colon (Z12.11) Active confirmed Problem Diverticular disease of colon (897904111) Diverticulosis of large intestine without perforation or abscess without bleeding (K57.30) Active confirmed Problem 927192152 Other chronic pancreatitis (K86.1) Active confirmed Problem Screening for malignant neoplasm of rectum (660447825) Encounter for screening for malignant neoplasm of rectum (Z12.12) Active confirmed Problem 337499476 Gastroesophageal reflux disease without esophagitis (K21.9) Active confirmed Problem 581933684 Barretts esophag us without dysplasia (K22.70) Active confirmed Problem 651621582 Gastroesophageal reflux disease, esophagitis presence not specified (K21.9) Active confirmed Problem 480860866 Family history o f colon cancer (Z80.0) Active confirmed Problem 08135129 Constipation, unspecified constipation type (K59.00) Active confirmed Problem Gastritis (0803595) Gastritis (K29.70) Active c onfirmed Problem Ro esophagus (027472044) 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) Active confirmed Problem Gastroesophageal reflux disease (319377282) Esophageal reflux disease (K21.9) Active confirmed Problem 89714395 Hypertension, unspecified type (I10) Active confirmed Problem 49393958 Esophageal dysphagia (R13.10) Active confirmed Encounters Encounter Location Date Provider Diagnosis [facility] [address] [place] [phone] 10/27/2024 Valeriano Corona [facility] [address] [place] [phone] 02/24/2025 Valeriano Corona Plan Of Treatment Pending [...] Name:Valeriano Corona , 06/11/2025 02:20:00 PM, [address], [address], [place], [address], Insurance Providers Payer Name Payer Address Payer Phone Subscriber Number Group Number Insured Name Patient Relationship to Insured Coverage Start Date Coverage End Date MEDICARE OF [place] [address] [place] [address] [id number] NA SOLIMAN Self - patient is the insured [facility] [address] [place] [address] [id number] NA SOLIMAN Self - patient is the [...] HEMA Pulmonary embolus Endometrial cancer-s/p Hysterectomy Denies NM,CVA,renal disease Hypertriglyceridemia She had negative colonoscopies in [...] relation to her pancreas divisum[place] [facility] [place] minor sphincteropla sty to try to treat pancreatitis in relation to her pancreas divisum-at [facility] with [place]. Clemente Cholescystectomy 11/1997 Right knee Wrist
--- OUTSIDE RECORDS SUMMARY | 2025-06-08 17:17 | XMS_ITS | Clinical Summary ---
Author Organization [facility] Address [address] [place] [address] Care Team Providers Care Sweeper Brush Maker Machine Name Role Phone Pcp, No Primary Care [...] day. 15 mL 5 Active pancrelipase (CREON) [address]64-[address] Particles capsuleIndicatio ns:Severe acute [...] need to establish care with PCP and aircraft machinist for outpatient management Assessment & Plan (11/21/2024 [...] drink = 0.6 oz pur e alcohol) [facility] Utilities Answer Date Recorded In the past 12 months has [employer], gas, oil, or water [employer] threatened to shut off services in your [...] any time in the past 12 m [facility], were you homeless or living in a prison (including now)? No 11/18/2024 Comments Unknown Sex [...] es 65 and older) 2018 Influenza Vaccine 04/09/2025 COVID-19 Vaccine (1 - 2023-2 5 season) 2025 Creatinine with GFR 11/23/2025 11/23/2024, 11/18/2024, 11/17/2024 [...] 8.7 - 10.5 mg/dL 11/23/2024 3:05 PM [facility] Alkaline Phosphatase 70 32 - 122 U/L 11/23/2024 3:05 PM [facility] Aspartate Aminotrans (AST) 27 10 - 50 U/L 11/23/2024 3:05 PM [facility] Alanine Aminotrans (ALT) 14 10 - 50 U/L 11/23/2024 3:05 PM [facility] Bilirubin, Total 0.4 0.2 - 1.0 mg/dL 11/23/2024 3:05 PM [facility] Protein, Total 6.6 6.3 - 8.3 g/dL 11/23/2024 3:05 PM [facility] Albumin 3.5 3.4 - 4.8 g/dL 11/23/2024 3:05 PM [facility] BUN/Creatinine Ratio 11 10.0 - 25.0 Ratio 11/23/2024 3:05 PM [facility] Globulin 3.1 1.5 - 3.9 g/dL 11/23/2024 3:05 PM [facility] Albumin/Globulin Ratio 1.1 1.0 - 3.0 Ratio 11/23/2024 3:05 PM [facility] Anion Gap 9 7 - 17 11/23/2024 3:05 PM [facility] Blood Blood specimen / Unknown 11/23/2024 2:23 PM EDT 11/23/2024 2:30 PM EDT us Darrellr Aurea Koenig DO LAB BLOOD ORDERABLES Final Resul t [address] [address], from Last 3 Months or Most Recently Relevant to Health Maintenance Insurance MEDICARE PART A & B [facility] SUPPLEMENT ONLY [facility] SUPPLEMENT ONLY MEDICARE PART A & B Advance Directives * Full Code (Latest Code Status on File) Date Activated Date Inactivated Comments 11/17/2024 7:48 PM Question Answer Comments Decision Thoroughly Discussed with: Patient Care Teams Sweeper Brush Maker Machine Relationship Specialty Start Date End Date Pcp, No PCP - General General Medicine 11/18/24
[2025-06-08 17:44] LABS: Anion Gap 12 (12-20); Blood Urea Nitrogen 14 mg/dL (9-16); Carbon Dioxide 28 mmol/L (22-29); Chloride 106 mmol/L (96-108); Estimated Glomerular Filt Rate > 60; Potassium 3.7 mmol/L (3.3-5.1); Sodium 142 mmol/L (135-145)
[2025-06-08 18:39] LABS: Protein/Creatinine Ratio, Ur 2.12 (<0.2); Total Protein Urine Random 185 mg/dL (<12)
== END 2025-06-08 16:34 | disposition home or self-care (01) ==
LOC: HO.LAB 16:33
PROVIDERS: PCP Internal Medicine; Visit Provider Internal Medicine Nephrology
DX: E11.21 Type 2 diabetes mellitus with diabetic nephropathy (principal)
CPT/HCPCS: 36415; 80051; 82565; 82570; 84156; 84520

== ENCOUNTER 2025-06-09 13:39 | Outpatient (AMB) | payer MEDICARE, OTHER, SELFPAY ==
--- OUTSIDE RECORDS SUMMARY | 2023-12-18 08:00 | XMS_ITS ---
Author Organization [facility] Address [address] [place] [address] Care Team Providers Care Can Piler Name Role Phone Armando Holloway MD Primary Care Provider UnavailSaira Swann Unavailable [phone] Devan Kirkpatrick Unavailable [phone] REASON FOR VISIT Painful thick toenails which are aggrevated by shoes and causes difficulty standing/walking Medications Medication SIG (Take, Route, Frequency, Duration) Notes Start Date End Date Status Extra Depth Diabetic Shoes with 3 Pair Custom heat-molded multi-density innersoles for 1 year Dx: Active Clotrimazole-Betamethasone 1-0.05 % 1 application to affected area Externally Twice a day to affected areas on feet; Duration: 30 days Active Encounters Encounter Location Date Provider Diagnosis [facility] [address] [place] [address] 12/18/2023 Devan Kirkpatrick Type 1 diabetes mellitus with diabetic polyneuropathy E10.42 ; Tinea unguium B35.1 ; Skin disease L98.9 ; Pain in right toe(s) M79.674 ; Pain in left toe(s) M79.675 ; Tinea pedis B35.3 ; Ingrowing nail L60.0 ; Lymphedema I89.0 and Closed nondisplaced fracture of phalanx of lesser toe of left foot, unspecified phalanx, initial encounter S92.505A Assessments Encounter Date Diagnosis (ICD Code) Assessment Notes Treatment Notes Treatment Clinical Notes Section Notes 12/18/2023 Type 1 diabetes mellitus with diabetic polyneuropathy (ICD-10 - E10.42) 12/18/2023 Tinea unguium (ICD-10 - B35.1) 12/18/2023 Skin disease (ICD-10 - L98.9) 12/18/2023 Pain in right toe(s) (ICD-10 - M79.674) 12/18/2023 Pain in left toe(s) (ICD-10 - M79.675) 12/18/2023 Tinea pedis (ICD-10 - B35.3) 12/18/2023 Ingrowing nail (ICD-10 - L60.0) 12/18/2023 Lymphedema (ICD-10 - I89.0) 12/18/2023 Closed nondisplaced fracture of phalanx of lesser toe of left foot, unspecified phalanx, initial encounter (ICD-10 - S92.505A) Plan Of Treatment Medication Medication Name Sig Start Date Stop Date Notes Extra Depth Diabetic Shoes with 3 Pair Custom heat-molded multi-density innersoles for 1 year Dx: Clotrimazole-Betamethasone 1-0.05 % 1 application to affected area Externally Twice a day to affected areas on feet; Duration: 30 days Next Appt Details Follow Up: 3 Months, Reason: Procedure Notes * Category Sub-Category Detail Notes Keratoma Treatment Parring or Cutting o f Benign Hyperkeratotic Lesion(s) 53951 (2-4 Lesions) - The Benign hyperkeratotic lesions, as described above were pared, and/or cut utilizing a sterile #15 blade, tissue nippers, and/or dremel Debride Nails 1-5 Procedure: Nail debrideme nt performed extensively to reduce/remove overall nail length and girth, subungual debris, and necrotic tissue, by manual and electrical means by use of a nail nipper and/or dremel, to more viable healthy nail plate or bed tissue 1-5. Silver nitrate used for any petechial bleeding as necessary. Patient chooses, no pharmaceutical tx (08871) Nail Reduction Nail Reduction Trimming of dyst rophic nails performed to reduce/remove overall nail length and girth, by manual and electrical means with use of a nail nipper and/or dremel, to more viable healthy nail plate or bed tissue 6-10 (G0127) Progress Notes * Rachana SOLIMANneDOB:1955 ( 70 yo F)Acc No.[id number]:12/18/2023 Progress Note Patient: Felecia CASTELLANOS Provider: Jane Kirkpatrick DPM :1955 A ge:68 Y S ex:Female Date:12/18/2023 Address:[address] [place] [address], [facility] Pcp:Armando Holloway MD Subjective: * Chief Complaints: * 1 . Painful thick toenails which are aggrevated by shoes and causes difficulty standing/walking. * HPI: A t Risk footcare: Pt States Last PCP Visit: D ate 0 11/23/2022 T oe pain: Nature: t hrobbing, aching. Location: 2 nd toe, 3rd toe, Left foot. Duration: s everal months. Onset/Cause: s tates traumatic (dropped can on toes ) .? Course: u nresolved. Aggravated by: s hoes, any pressure. Treatments: n one. Severity/Quality: m oderate. * ROS: G eneral/Constitutional: Nausea d enies. V omiting d enies. H rudi Thirst d enies. L oss appetite d enies. C hills d enies. F atigue d enies.?Fever d enies. N ight Sweats d enies. U nexplained weight loss d enies. U nexplained weight gain d enies. H EENTM: Dentures d enies. D izziness d enies. G lasses/contacts a dmits. R etinopathy d enies. B lurred/double vision d enies. T MJ?denies. D ischarge/drainage d enies. I mplants d enies. S ore throat d enies. D ental implants d enies. H rosa of hearing d enies. D ifficulty chewing/swallowing/speaking d enies. N ose bleeds d enies. S ore mouth d enies. ? R espiratory: On Oxygen d enies. P neumonia/pleurisy d enies.?Bronchitis d enies. E mphysema d enies. C oughing a dmits. C ough blood?denies. S hortness of breath a dmits. W heezing d enies. C ardiovascular: Pacemaker d enies. M COOKING SHOW HOST d enies. W PW d enies. C HF d enies. H eart attack d enies. S eptal defect d enies. R apid beat d enies. C hest pain d enies. A trial Fib. d enies. M urmur/Palpitations d enies. G astrointestinal: Hemorrhoids a dmits. S tomach/Abdominal pain a dmits. D ark blood stool d enies. I rritable bowel d enies. C onstipation d enies. D iarrhea d enies. H ematology: Swelling a dmits. C lots A dmits. V aricose Veins a dmits. B ruising d enies. B leeding problem d enies. G enitourinary: Blood urine d enies. F requent/Painfu/urination/bladder control d enies. K idney stones d enies. I nfection (UTI) d enies. N ephropathy d enies. s ex trans dis (STD) d enies. P rostate d enies. M usculoskeletal: Hammertoes d enies. B unions d enies. B ack Pain a dmits. M uscle Cramps/ Resting a dmits. M uscle cramps / walking d enies.?Generalized aches and pains a dmits. W eakness d enies. I nteg.: Knowles d enies. S cars d enies. C orns/calluses?denies. I ngrown nails a dmits. P ainful nails d enies. O pen Sores d enies. R ashes d enies. N eurologic: Difficulty sleeping d enies. B rain disorder d enies. N umbness d enies. B alance trouble d enies. C onfusion d enies. F ainting/blackouts d enies. T ingling d enies. T remors d enies. * Medical History: Objective: * Vitals: * Examination: N eurological: SENSORY: N eurological exam demonstrates, reduced light touch sensation, 5.07 monofilament test performed at plantar aspects of 5 varied sites per foot shows sensation, reduced , B/L, Neurological exam demonstrates pop left 2,3 toes. V ascular: DP PULSES (B): 1/4, B/L. PT PULSES (B): 1/4, B/L. CAPILLARY FILL TIME: 3 secs. per digit. B/L. TEMPERTURE GRADIENT (C): n ormal, B/L. PIGMENTATION: resolving cellulitis right leg. EDEMA (C): 3/4, pitting, B/L, Feet, Ankle(s), Leg(s).? N ails: NAILS are: E longated, overgrown, dystrophic, lytic, greater than 3mm thick, discolored and friable with crumbly malodorous subungual debris, with dull to no pain on palpation due to neuropathy, T1, T6. D ermatologic: SKIN FINDINGS: Skin exam reveals Keratotic lesion(s) located at, Plantar, Heel(s), B/L . G eneral Examination: GENERAL APPEARANCE: p leasant, alert, well nourished, well developed, well hydrated, with good attention to hygene/body habitus, and in no acute distress. ORIENTED: p erson,place, and time. FOOT EXAM: L ower Extremity Neurological Exam performed:?Yes V isual exam of foot performed: Y es D ate 0 12/19/2022 S ensory testing performed: s ensations diminished P edal pulse taking performed: 1 + O rthopedic: MUSCLE STRENGTH: 5 /5 all groups in a symmetrical fashion , B/L. DIGITAL DEFORMITIES: Digital contracture nafisa 5th toe.? I ngrown Nail: INSPECTION: Reveals nail incurvation, dull pain on palpation due to neuropathy, groove hypertrophy, Bilateral nail borders, T1, T6. O phthalmology Referral: DIABETES EYE EXAM D iabetic Retinopathy Screening: N o F indings of Diabetic Eye Exam: n o retinopathy X -Rays - IMAGING REPORT: Views: 3 views of Foot, LEFT. Digits: show assymetrical joint space narrowing at the PIPJ consistent with clinical finding of hammertoe deformity , show enlarged/hypertrophied phalangial head(s) consistent for clinical finding of hammertoe deformity , 2nd digit thru 5th digit. Fracture: Negative fractures identified. Assessment: * Assessment: 1. T ype 1 diabetes mellitus with diabetic polyneuropathy - E10.42 2 . T inea unguium - B35.1 3 . S kin disease - L98.9 (Primary) 4 . P ain in right toe(s) - M79.674 5 . P ain in left toe(s) - M79.675 6. T inea pedis - B35.3 7 . I ngrowing nail - L60.0 8 .?Lymphedema - I89.0 9 . C losed nondisplaced fracture of phalanx of lesser toe of left foot, unspecified phalanx, initial encounter - S92.123A Plan: * Treatment: 2. T inea pedis Start Clotrimazole-Betamethasone Cream, 1-0.05 %, 1 application to affected area, Externally, Twice a day to affected areas on feet, 30 days, 60, Refills 3. * Procedures: D ebride Nails 1-5: Procedure: N ail debridement performed extensively to reduce/remove overall nail length and girth, subungual debris, and necrotic tissue, by manual and electrical means by use of a nail nipper and/or dremel, to more viable healthy nail plate or bed tissue 1-5. Silver nitrate used for any petechial bleeding as necessary. Patient chooses, no pharmaceutical tx (43871). K eratoma Treatment: Parring or Cutting of Benign Hyperkeratotic Lesion(s) 1 1056 (2-4 Lesions) - The Benign hyperkeratotic lesions, as described above were pared, and/or cut utilizing a sterile #15 blade, tissue nippers, and/or dremel. N ail Reduction: Nail Reduction T rimming of dystrophic nails performed to reduce/remove overall nail length and girth, by manual and electrical means with use of a nail nipper and/or dremel, to more viable healthy nail plate or bed tissue 6-10 (G0127). * Procedure Codes: 1 1720 DEBRIDE NAIL, 1-5, Modifiers: XS , 74682 TRIM SKIN LESIONS, 2 TO 4, Modifiers: XS , G0127 TRIMMING DYSTROPHIC NAILS ANY #, Modifiers: XS , 22749 X-RAY EXAM OF LEFT FOOT 3V, Modifiers: 26 , LT * Follow Up: 3 Months * Images: * The named appointment provid er may or may not be the originator of this progress note, and it is not deemed complete until electronically signed by the appointment provider. Sign off status: Pending * Provider: Jane Kirkpatrick DPM Date: 0 12/18/2023 Generated for Clemencia guadalupe/Hunter/eTminnie on: 1 02:55 PM EDT History and Physical Notes * HPI (History of Present Illness) Category Sub-Category Detail Notes Category Not es Toe pain Nature: throbbing, aching Location: 2nd toe, 3rd toe, Le ft foot Duration: several months Onset/Cause: states traumatic (dr diallo can on toes ) Course: unresolved Aggravated by: shoes, any pressure Treatments: none Severity/Quality: moderate At Risk footcare Pt States Last PCP Visit: Date: 3 Examination Category Sub-Category Detail Notes Category Not es Ingrown Nail INSPECTION: Reveals nail inc urvation, dull pain on palpation due to neuropathy, groove hypertrophy, Bilateral nail borders, T1, T6 Neurological SENSORY: Neurological exa m demonstrates, reduced light touch sensation, 5.07 monofilament test performed at plantar aspects of 5 varied sites per foot shows sensation, reduced , B/L, Neurological exam demonstrates pop left 2,3 toes Dermatologic SKIN FINDINGS: Skin exam reveal s Keratotic lesion(s) located at, Plantar, Heel(s), B/L Orthopedic DIGITAL DEFORMITIES: Digital contracture nafisa 5th toe MUSCLE STRENGTH: 5/5 all groups in a symmetrical fashion , B/L General Examination GENERAL APPEARANCE: pleasant , alert, well nourished, well developed, well hydrated, with good attention to hygene/body habitus, and in no acute distress FOOT EXAM: Lower Extremity Neurological Exa m performed:: Yes Visual exam of foot performed:: Yes Date: 12/19/2022 Sensory testing performed:: sensations d iminished Pedal pulse taking performed:: 1+ ORIENTED: person,place, and ti me Ophthalmology Referral DIABETES EYE EXAM Diabetic Retinopa thy Screening:: No Findings of Diabetic Eye Exam:: no retin opathy Vascular DP PULSES (B): 1/4, B/L PT PULSES (B): 1/4, B/L CAPILLARY FILL TIME: 3 secs. per digit. B/L TEMPERTURE GRADIENT (C): normal, B/L EDEMA (C): 3/4, pitting, B/L, F eet, Ankle(s), Leg(s) PIGMENTATION: resolving cellulitis right leg Nails NAILS are: Elongated, overg rown, dystrophic, lytic, greater than 3mm thick, discolored and friable with crumbly malodorous subungual debris, with dull to no pain on palpation due to neuropathy, T1, T6 X-Rays - IMAGING REPORT Fracture: Negative fracture s identified Digits: show assymetrical russ int space narrowing at the PIPJ consistent with clinical finding of hammertoe deformity , show enlarged/hypertrophied phalangial head(s) consistent for clinical finding of hammertoe deformity , 2nd digit thru 5th digit Views: 3 views of Foot, LEF T
--- OUTSIDE RECORDS SUMMARY | 2024-09-16 05:00 | XMS_ITS ---
Author Organization [facility] Address [address] [place] [address] Care Team Providers Care Nail Galvanizer Name Role Phone Armando Holloway MD Primary Care Provider Unavaila Saira Hurst Unavailable [phone] Devan Kirkpatrick Unavailable [phone] REASON FOR VISIT Transfer to Different Provider Encounters Encounter Location Date Provider Diagnosis [address] [address] 09/16/2024 Devan Kirkpatrick Plan Of Treatment No Information Progress Notes * Rachana SOLIAMNneDOB:1955 ( 70 yo F)Acc No.[id number]:09/16/2024 Progress Note Patient: Felecia CASTELLANOS Provider: Jane Kirkpatrick DPM :1955 A ge:69 Y S ex:Female Date:09/16/2024 Address:[address] [facility] Pcp:Armando Holloway MD Subjective: * Chief Complaints: [...] Kirkpatrick DPM Date: 0 09/16/2024 Generated for Printi ng/Faramang/eTransmitting on: 1 02:54 PM EDT
--- OUTSIDE RECORDS SUMMARY | 2024-09-16 05:00 | XMS_ITS ---
Author Organization [facility] Address [address] [place] [address] Care Team Providers Care Nutrition Consultant Name Role Phone Armando Holloway MD Primary Care Provider Unavaila Saira Hurst Unavailable [phone] Riley Encounters Encounter Location Date Provider Diagnosis [facility] [address] [place] [address] 09/16/2024 Saira Willett Plan Of Treatment No Information Progress Notes * Rachana SOLIMANOscarOB:1955 ( 70 yo F)Acc No.[id number]:09/16/2024 Progress Note Patient: Felecia CASTELLANOS Provider: Byron Willett DPM :1955 A ge:69 Y S ex:Female Date:09/16/2024 Address:[address] [facility] Pcp:Armando Holloway MD Subjective: * Chief Complaints: [...] 09/16/2024 Generated for Clemencia guadalupe/Hunter/eTransmitting on: 1 02:55 PM EDT
--- OUTSIDE RECORDS SUMMARY | 2024-10-27 06:50 | XMS_ITS ---
Author Organization [facility] Address [address] [place] [address] Care Team Providers Care Residential Service Technician Name Role Phone Amie (RETIRED) Armando COBB Primary Care Provide Valeriano Santana [phone] REASON FOR VISIT Patient presents today for abdominal pain Encounters Encounter Location Date Provider Diagnosis [facility] [address] [place] [address] 10/27/2024 Valeriano Corona Plan Of Treatment Next Appt Details Provider Name:Valeriano Corona , 06/11/2025 02:20:00 PM, [address] [facility], [address], [place], [address], Progress Notes * CAROLEE SOLIMANNEDOB:1955 ( 70 yo F)Acc No.[id number]:10/27/2024 Progress Notes Patient: NA CASTELLANOS Provider: Sonali Corona MD :1955 A ge:69 Y S ex:Female Date:10/27/2024 Address:[address] [place] [address] Pcp:Armando Holloway (RETIRED )MD Subjective: * Chief [...] 10/27/2024 Generated for Clemencia guadalupe/Hunter/Juliana on: 1 02:54 PM EDT
--- OUTSIDE RECORDS SUMMARY | 2025-02-24 09:40 | XMS_ITS ---
Author Organization [facility] Address [address] [place] [address] Care Team Providers Care Rotary Shear Operator Name Role Phone Amie (RETIRED) Armando COBB Primary Care Provide Valeriano Santana [phone] REASON FOR VISIT abdominal pain Encounters Encounter Location Date Provider Diagnosis [facility] [address] [place] [address] 02/24/2025 Valeriano Corona Plan Of Treatment Next Appt Details Provider Name:Valeriano Corona , 06/11/2025 02:20:00 PM, [address], [address], [place], [address], Progress Notes * CAROLEE SOLIMANNEDOB:1955 ( 70 yo F)Acc No.[id number]:02/24/2025 Progress Notes Patient: NA CASTELLANOS Provider: Sonali Corona MD :1955 A ge:69 Y S ex:Female Date:02/24/2025 Address:[address] [place] [address] Pcp:Armando Holloway (RETIRED )MD Subjective: * Chief [...] 02/24/2025 Generated for Clemencia guadalupe/Hunter/Juliana on: 1 02:54 PM EDT
--- NOTE | 2025-06-09 13:45 | HO.NEPHOV_ITS ---
Vital Signs 06/09/25 13:50 Height 5 ft 2 in Weight 239 lb 8 oz BMI 43.8 BP 166/72 H Blood Pressure Location Rt brachial Position Sitting Pulse 73 Pulse Source Pulse Oximeter Pulse Oximetry (%) 97 Oxygen Delivery Method Room Air Intake Visit Reasons: Diabetic nephropathy-6mon f/u- LVM Electrostatic Painter Required: No Accompanied by: Spouse Allergies gentamicin Allergy (Severe, Verified 06/09/25 13:50) Difficulty Breathing Iodinated Contrast Media Allergy (Severe, Verified 06/09/25 13:50) Difficulty Breathing, nausea and vomiting latex (LATEX) Allergy (Severe, Verified 06/09/25 13:50) Anaphylaxis morphine Allergy (Severe, Verified 06/09/25 13:50) Anaphylaxis Penicillins Allergy (Severe, Verified 06/09/25 13:50) stopped breathing as an shellfish derived (SHELLFISH DERIVED) Allergy (Severe, Verified 06/09/25 13:50) Difficulty Breathing, swelling vancomycin Allergy (Severe, Verified 06/09/25 13:50) Difficulty Breathing azithromycin Allergy (Unknown, Verified 06/09/25 13:50) Unknown erythromycin base Allergy (Unknown, Verified 06/09/25 13:50) Unknown esomeprazole Allergy (Unknown, Verified 06/09/25 13:50) Unknown pantoprazole Adverse Reaction (Mild, Verified 06/09/25 13:50) Nausea and Vomiting HPI Comments Details: Felecia, accompanied by her , was seen in follow up of hypertension. She has been a diabetic for long time. Her blood sugars had been uncontrolled. Her last A1c is close to 11. She has history of recurrent pancreatitis likely from hypertriglyceridemia. She has history of congestive heart failure with a preserved ejection fraction. Couple years ago she had coronary angiogram which showed patent coronary arteries. She has not been very strict with low-sodium diet. She has been having pedal edema, more so in the evenings and in warm humid weather, but better. Her serum creatinine is stable at baseline. She denies any nausea, vomiting, diarrhea, epistaxis, photosensitivity, joint swellings, hematemesis, melena, hematuria, orthostatic symptoms. She had been prescribed Farxiga in the past by her Internet Salesperson but she has not taken it at all as she was worried about its side effects ( pancreatitis). She is seeing an Court Monitor for blood sugar management. She has no new bone or back pain. She has no history of renal stones. She denies any chest pain, palpitation or syncope. Her proteinuria is worse. [facility] Medical History (Updated 03/17/25 @ 15:53 by RODNEY Johnston) Venous stasis dermatitis Pancreatitis Chronic pancreatitis Hypertriglyceridemia Asthma Endometrial cancer Barretts esophagus GERD (gastroesophageal reflux disease) Pancreatic divisum CAD (coronary artery disease) nursing home (current) use of insulin Diabetes type 2, uncontrolled Cervical cancer Other and unspecified hyperlipidemia Essential hypertension Vitamin D deficiency T2DM (type 2 diabetes mellitus) HLD (hyperlipidemia) HTN (hypertension) Accelerated essential hypertension Embolism Surgical History History of esophagogastroduodenoscopy (EGD) Hx of colonoscopy (~07/03/23) Hx of removal of cyst Hx of hernia repair Hx of cholecystectomy Hx of endoscopy Hx of hysterectomy Family History Father Diabetes Mother Diabetes Social History Household Members: Spouse Housing: House Do you presently have visiting nurse or other home services: No Alcohol intake: never Comment: sleeping Patient Tobacco Use Status: Former Tobacco user e-Cigarette/Vaping Use: Former Use service: No Current occupational status: employed Current occupation: [employer] Cognitive needs: No Hearing needs: No Vision needs: Yes (rx glasses) Review of Systems Const All systems reviewed & are unremarkable except as noted in HPI and below Physical Exam Vital Signs: Last Vital Signs Pulse 73 06/09/25 13:50 BP 166/72 H 06/09/25 13:50 Pulse Ox 97 06/09/25 13:50 Oxygen Delivery Method Room Air 06/09/25 13:50 BMI result Body Mass Index 43.8 Const General: comfortable and no acute distress Orientation/consciousness: patient oriented x3 HEENT Head: Yes normocephalic Mouth: Normal oral and palatal mucosa present Eyes EOM: EOMs intact bilaterally Neck Neck: Yes supple Resp Auscultation: clear to auscultation bilaterally Cardio Jugular venous distension: no JVD Rate: regular rate GI Palpation (GI): Soft to palpation Auscultation: normal bowel sounds General: Yes no CVA tenderness Back/Spine/Pelvis Back: no CVA tenderness Skin General skin exam: no rashes or lesions noted Neuro General: patient oriented x3 and moves all extremities Extrem General: Yes edema Results Reviewed Nephrology Results: Hgb, (12.0-16.0) 12.3 g/dl 03/17/25 WBC, (4.8-10.8) 5.2 X10*3/uL 03/17/25 Plt Count, (160-400) 241 X10*3/uL Δ 03/17/25 Sodium, (135-145) 142 mmol/L 06/08/25 Potassium, (3.3-5.1) 3.7 mmol/L 06/08/25 Chloride, (96-108) 106 mmol/L 06/08/25 Carbon Dioxide, (22-29) 28 mmol/L 06/08/25 BUN, (9-16) 14 mg/dL 06/08/25 Creatinine, (0.5-1.4) 0.79 mg/dL 06/08/25 Calcium, (8.4-10.2) 9.5 mg/dL 03/17/25 Urine Creatinine 87.41 mg/dL 06/08/25 Protein/Creatinin Ratio, (<0.2) 2.12 H 06/08/25 Assessment & Plan Assessment & Plan (1) HTN (hypertension): Code(s): I10 - Essential (primary) hypertension Category: Medical Qualifiers: Hypertension type: essential hypertension Qualified Code(s): I10 - Essential (primary) hypertension (2) Diabetic nephropathy: Code(s): E11.21 - Type 2 diabetes mellitus with diabetic nephropathy Category: Medical Qualifiers: Diabetes mellitus type: type 2 Qualified Code(s): E11.21 - Type 2 diabetes mellitus with diabetic nephropathy Plan Her urine output is good. She has longstanding diabetic with H/O A1c over 11. She is on MICHAEL-inhibitor. 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 I encouraged to cut back salt in the diet. She has diabetic nephropathy. I discussed about SGLT2 i which she wants to think it over and discuss with her Court Monitor soon. I answered all her and her 's questions. Follow-up appointment given Orders: Orders Protein Creatinine Ratio, Ur 6 Months E11.21 - Type 2 diabetes mellitus with diabetic nephropathy, I10 - Essential (primary) hypertension Creatinine 6 Months E11.21 - Type 2 diabetes mellitus with diabetic nephropathy, I10 - Essential (primary) hypertension Electrolytes 6 Months E11.21 - Type 2 diabetes mellitus with diabetic nephropathy, I10 - Essential (primary) hypertension Blood Urea Nitrogen 6 Months E11.21 - Type 2 diabetes mellitus with diabetic nephropathy, I10 - Essential (primary) hypertension Coding Level of Care Code Est Pt Level 4 (97694) Diagnoses Essential hypertension I10 Hypertension type: essential hypertension Diabetic nephropathy associated with type 2 diabetes mellitus E11. Diabetes mellitus type: type 2
[2025-06-09 13:50] VITALS: BP 166/72; PULSE 73; O2SAT 97; BMI 43.8
--- OUTSIDE RECORDS SUMMARY | 2025-06-09 14:54 | XMS_ITS | Patient Health Record ---
Author Organization [facility] Address [address] [place] [address] Care Team Providers Care Warp Spooler Name Role Phone Armando Holloway MD Primary Care Provider Saira Carranza Unavailable [phone] Devan Kirkpatrick Unavailable [phone] Allergies Allergen (clinical drug ingredient) Drug/Non Drug [...] Polyneuropathy due to type 2 diabetes mellitus (646755662) Type 2 diabetes mellitus with diabetic polyneuropathy (E11.42) Active confirmed Problem Polyneuropathy due to diabetes mellitus type I (202499270) Type 1 diabetes mellitus with diabetic polyneuropathy (E10.42) Active confirmed Problem Lymphedema (18267091) Lymphedema (I89.0) Active confirmed Plan Of Treatment Pending Test Test Name Order Date X ray : Foot, left 3V 12/19/2022 [id number] SKIN LESIONS, 2 TO 4 08/17/20 21 [id number] SKIN LESIONS, 2 TO 4 12/07/19 22 [id number] DYSTROPHIC NAILS ANY # [id number] DYSTROPHIC NAILS ANY # Insurance Providers Payer Name Payer Address Payer Phone Subscriber Number Group Number Insured Name Patient Relationship to Insured Coverage Start Date Coverage End Date Medicare National [employer] [address] [facility] [place] [address] [phone] [id number] Felecia Self Self - patient is the insured [facility] [address] [place] [address] [phone] [id number] Clair Felecia Self - patient is the insured [...] Reason Date(Month/Year) [facility] pancreatitis 6 days 11/25/21 [facility] 5 day stay 07/2021
--- OUTSIDE RECORDS SUMMARY | 2025-06-09 14:55 | XMS_ITS | Clinical Summary ---
Author Organization [facility] Address [address] [place] [address] Care Team Providers Care Housekeeper Name Role Phone Pcp, No Primary Care [...] day. 15 mL 5 Active pancrelipase (CREON) [address]-[address] Particles capsuleIndicatio ns:Severe acute [...] need to establish care with PCP and warehouse production worker for outpatient management Assessment & Plan (11/21/2024 [...] e alcohol) [facility] Utilities Answer Date Recorded In the past 12 months has [employer], gas, oil, or water [employer] threatened to shut off services in your [...] time in the past 12 m [facility], were you homeless or living in a usp (including now)? No 11/18/2024 Comments Unknown Sex [...] - 99 mg/dL 11/23/2024 3:05 PM EDT [facility] Comment:Fasting: <100 mg/dL, Non-Fasting: <200 mg/dL (ADA 2005) Blood Urea Nitrogen (BUN) 9 8 - 21 mg/dL 11/23/2024 3:05 PM EDT [facility] Creatinine 0.8 0.4 - 1.1 mg/dL 11/23/2024 3:05 PM EDT [facility] eGFR 79 >59 11/23/2024 3:05 PM EDT [facility] Comment:CKD-EPI (2020) in mL /min/1.73 sq meters. Sodium 136 136 - 145 mmol/L 11/23/2024 3:05 PM EDT [facility] Potassium 3.9 3.4 - 5.3 mmol/L 11/23/2024 3:05 PM EDT [facility] Chloride 101 98 - 107 mmol/L 11/23/2024 3:05 PM EDT [facility] CO2 26 22 - 33 mmol/L 11/23/2024 3:05 PM T [facility] Calcium 9.5 8.7 - 10.5 mg/dL 11/23/2024 3:05 PM [facility] Alkaline Phosphatase 70 32 - 122 U/L 11/23/2024 3:05 PM [facility] Aspartate Aminotrans (AST) 27 10 - 50 U/L 11/23/2024 3:05 PM [facility] Alanine Aminotrans (ALT) 14 10 - 50 U/L 11/23/2024 3:05 PM [facility] Bilirubin, Total 0.4 0.2 - 1.0 mg/dL 11/23/2024 3:05 PM [facility] Protein, Total 6.6 6.3 - 8.3 g/dL 11/23/2024 3:05 PM [facility] Albumin 3.5 3.4 - 4.8 g/dL 11/23/2024 3:05 PM [facility] BUN/Creatinine Ratio 11 10.0 - 25.0 Ratio 11/23/2024 3:05 PM [facility] Globulin 3.1 1.5 - 3.9 g/dL 11/23/2024 3:05 PM [facility] Albumin/Globulin Ratio 1.1 1.0 - 3.0 Ratio 11/23/2024 3:05 PM [facility] Anion Gap 9 7 - 17 11/23/2024 3:05 PM [facility] Blood Blood specimen / Unknown 11/23/2024 2:23 PM EDT 11/23/2024 2:30 PM EDT us Darrellr Aurea Koenig DO LAB BLOOD ORDERABLES Final Resul t [address] [address], from Last 3 Months or Most Recently Relevant to Health Maintenance Insurance MEDICARE PART A & B [facility] SUPPLEMENT ONLY [facility] SUPPLEMENT ONLY MEDICARE PART A & B Advance Directives * Full Code (Latest Code Status on File) Date Activated Date Inactivated Comments 11/17/2024 7:48 PM Question Answer Comments Decision Thoroughly Discussed with: Patient Care Teams Housekeeper Relationship Specialty Start Date End Date Pcp, No PCP - General General Medicine 11/18/24
--- OUTSIDE RECORDS SUMMARY | 2025-06-09 14:55 | XMS_ITS | Patient Health Record ---
Author Organization [facility] Address [address] [place] [address] Care Team Providers Care Logistics Supply Officer Name Role Phone Brooklynncalli (RETIRED) Armando COBB Primary Care Provide Valeriano Santana [phone] Allergies Allergen (clinical drug ingredient) Drug/Non Drug [...] tetracycline Tetracycline HCl Unknown Drug Allergy Active Morphine Sulfate Unknown Drug Allergy Active gentamicin [...] Problem Status W/U Status Risk Notes Problem 352703059 Encounter for screening for malignant neoplasm of colon (Z12.11) Active confirmed Problem Diverticular disease of colon (952759905) Diverticulosis of large intestine without perforation or abscess without bleeding (K57.30) Active confirmed Problem 871295901 Other chronic pancreatitis (K86.1) Active confirmed Problem Screening for malignant neoplasm of rectum (403929376) Encounter for screening for malignant neoplasm of rectum (Z12.12) Active confirmed Problem 556945387 Gastroesophageal reflux disease without esophagitis (K21.9) Active confirmed Problem 905396645 Barretts esophag us without dysplasia (K22.70) Active confirmed Problem 044543477 Gastroesophageal reflux disease, esophagitis presence not specified (K21.9) Active confirmed Problem 264889111 Family history o f colon cancer (Z80.0) Active confirmed Problem 39834273 Constipation, unspecified constipation type (K59.00) Active confirmed Problem Gastritis (2886522) Gastritis (K29.70) Active c onfirmed Problem Ro esophagus (163129052) 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) Active confirmed Problem Gastroesophageal reflux disease (402476168) Esophageal reflux disease (K21.9) Active confirmed Problem 43217440 Hypertension, unspecified type (I10) Active confirmed Problem 27253383 Esophageal dysphagia (R13.10) Active confirmed Encounters Encounter Location Date Provider Diagnosis [facility] [address] [place] [phone] 10/27/2024 Valeriano Corona [facility] [address] [place] [phone] 02/24/2025 Valeriano Corona Plan Of Treatment Pending [...] Name:Valeriano Corona , 06/11/2025 02:20:00 PM, [address], [address], [place], [address], Insurance Providers Payer Name Payer Address Payer Phone Subscriber Number Group Number Insured Name Patient Relationship to Insured Coverage Start Date Coverage End Date MEDICARE OF [place] [address] [place] [address] [id number] NA SOLIMAN Self - patient is the insured [facility] [address] [place] [address] [phone] [id number] NA SOLIMAN Self - patient is the [...] HEMA Pulmonary embolus Endometrial cancer-s/p Hysterectomy Denies CT,CVA,renal disease Hypertriglyceridemia She had negative colonoscopies in [...] relation to her pancreas divisum[place] [facility] sphincteropla sty to try to treat pancreatitis in relation to her pancreas divisum[place] [facility] [place]. Clement[place] Cholescystectomy 11/1997 Right knee Wrist
== END 2025-06-09 14:22 | disposition home or self-care (01) ==
LOC: HO.HKA 13:40
PROVIDERS: PCP Internal Medicine; Visit Provider Internal Medicine Nephrology
DX: I10 Essential (primary) hypertension (principal); E11.21 Type 2 diabetes mellitus with diabetic nephropathy
CPT/HCPCS: 99214

== ENCOUNTER → 2025-06-09 13:39 | Outpatient (BNVA) | payer MEDICARE, OTHER, SELFPAY | PROVIDERS: PCP Internal Medicine; Visit Provider Internal Medicine Nephrology | DX: E11.21 Type 2 diabetes mellitus with diabetic nephropathy (principal); I10 Essential (primary) hypertension; Z87.891 Personal history of nicotine dependence | CPT/HCPCS: 99212 ==

== ENCOUNTER 2025-06-15 14:34 | Outpatient (AMB) | payer MEDICARE, OTHER, SELFPAY ==
--- OUTSIDE RECORDS SUMMARY | 2023-12-18 08:00 | XMS_ITS ---
Author Organization [facility] Address [address] [place] [address] Care Team Providers Care Straddle Carrier Operator Name Role Phone Armando Holloway MD Primary Care Provider UnavailSaira Swann Unavailable [phone] Devan Hernández Unavailable [phone] REASON FOR VISIT Painful thick toenails which [...] Active Encounters Encounter Location Date Provider Diagnosis [facility] [address] [place] [address] 12/18/2023 Devan Hernández Type 1 diabetes mellitus with diabetic polyneuropathy [...] or Cutting o f Benign Hyperkeratotic Lesion(s) 84145 (2-4 Lesions) - The Benign hyperkeratotic lesions, [...] as necessary. Patient chooses, no pharmaceutical tx (86113) Nail Reduction Nail Reduction Trimming of dyst rophic nails performed to reduce/remove overall nail length and girth, by manual and electrical means with use of a nail nipper and/or dremel, to more viable healthy nail plate or bed tissue 6-10 (G0127) Progress Notes * Rachana SOLIMANneDOB:1955 ( 70 yo F)Acc No.[id number]:12/18/2023 Progress Note Patient: Felecia CASTELLANOS Provider: Jane Kirkpatrick DPM :1955 A ge:68 Y S ex:Female Date:12/18/2023 Address:[address] [place] [address], [place] , [facility] Pcp:Armando Holloway MD Subjective: * Chief Complaints: [...] enies. C ardiovascular: Pacemaker d enies. M COMBINER OPERATOR d enies. W PW d enies. [...] left foot, unspecified phalanx, initial encounter - S92.897A Plan: * Treatment: 2. T inea pedis [...] as necessary. Patient chooses, no pharmaceutical tx (06715). K eratoma Treatment: Parring or Cutting of [...] 1720 DEBRIDE NAIL, 1-5, Modifiers: XS , 85057 TRIM SKIN LESIONS, 2 TO 4, Modifiers: XS , G0127 TRIMMING DYSTROPHIC NAILS ANY #, Modifiers: XS , 42055 X-RAY EXAM OF LEFT FOOT 3V, Modifiers: 26 , LT * Follow Up: 3 Months * Images: * The named appointment provid er may or may not be the originator of this progress note, and it is not deemed complete until electronically signed by the appointment provider. Sign off status: Pending * Provider: Jane Kirkpatrick DPM Date: 0 12/18/2023 Generated for Clemencia guadalupe/Hunter/Juliana on: 1 05:54 PM EDT History and Physical Notes * [...] no retin opathy Vascular DP PULSES (B): 09/12, B/L PT PULSES (B): 1/4, B/L CAPILLARY [...]
--- OUTSIDE RECORDS SUMMARY | 2024-09-16 05:00 | XMS_ITS ---
Author Organization [facility] Address [address] [place] [address] Care Team Providers Care Software Developer Name Role Phone Armando Holloway MD Primary Care Provider Unavaila Saira Hurst Unavailable [phone] Devan Hernández Unavailable [phone] REASON FOR VISIT Transfer to Different Provider Encounters Encounter Location Date Provider Diagnosis [facility] [address] [place] [address] 09/16/2024 Devan Hernández Plan Of Treatment No Information Progress Notes * Rachana SOLIMANOscarOB:1955 ( 70 yo F)Acc No.[id number]:09/16/2024 Progress Note Patient: Felecia CASTELLANOS Provider: Jane Kirkpatrick DPM :1955 A ge:69 Y S ex:Female Date:09/16/2024 Address:[address] [facility] Pcp:Armando Holloway MD Subjective: * Chief Complaints: [...] 09/16/2024 Generated for Clemencia guadalupe/Hunter/Juliana on: 1 05:54 PM EDT
--- OUTSIDE RECORDS SUMMARY | 2024-09-16 05:00 | XMS_ITS ---
Author Organization [facility] Address [address] [place] [address] Care Team Providers Care Glazier Supervisor Name Role Phone Armando Holloway MD Primary Care Provider Unavaila Saira Hurst Unavailable [phone] Riley Encounters Encounter Location Date Provider Diagnosis [facility] [address] [place] [address] 09/16/2024 Saira Willett Plan Of Treatment No Information Progress Notes * Rachana SOLIMANOscarOB:1955 ( 70 yo F)Acc No.[id number]:09/16/2024 Progress Note Patient: Felecia CASTELLANOS Provider: Byron Willett DPM :1955 A ge:69 Y S ex:Female Date:09/16/2024 Address:[address] [facility] Pcp:Armando Holloway MD Subjective: * Chief Complaints: [...] 09/16/2024 Generated for Clemencia guadalupe/Hunter/eTransmitting on: 1 05:55 PM EDT
--- OUTSIDE RECORDS SUMMARY | 2024-10-27 06:50 | XMS_ITS ---
Author Organization [facility] Address [address] [place] [address] Care Team Providers Care Transportation Maintenance Specialist Name Role Phone YANIRA BURGOS Primary Care Provider Valeriano Miranda [phone] REASON FOR VISIT Patient presents today for abdominal pain Encounters Encounter Location Date Provider Diagnosis [facility] [address] [facility] [address] [place] [address] 10/27/2024 Valeriano Corona Plan Of Treatment Next Appt Details Provider Name:Valeriano Corona , 12/14/2025 01:00:00 PM, [address] [facility], [address], [place], [address], Progress Notes * CAROLEE SOLIMANNEDOB:1955 ( 70 yo F)Acc No.[id number]:10/27/2024 Progress Notes Patient: NA CASTELLANOS Provider: Sonali Corona MD :1955 A ge:69 Y S ex:Female Date:10/27/2024 Address:[address] [place], [place] [address] Pcp:YANIRA BURGOS Subjective: * Chief Complaints: * 1 . [...] 10/27/2024 Generated for Clemencia guadalupe/Hunter/Juliana on: 1 05:54 PM EDT
--- OUTSIDE RECORDS SUMMARY | 2025-02-24 09:40 | XMS_ITS ---
Author Organization [facility] Address [address] [place] [address] Care Team Providers Care Pastry Cook Apprentice Name Role Phone YANIRA BURGOS Primary Care Provider Valeriano Miranda [phone] REASON FOR VISIT abdominal pain Encounters Encounter Location Date Provider Diagnosis [facility] 10 [facility] [address] [place] [address] 02/24/2025 Valeriano Corona Plan Of Treatment Next Appt Details Provider Name:Valeriano Corona , 12/14/2025 01:00:00 PM, [address], [address], [place], [address], Progress Notes * JOURDAN CAROLEENEDOB:1955 ( 70 yo F)Acc No.[id number]:02/24/2025 Progress Notes Patient: NA CASTELLANOS Provider: Sonali Corona MD :1955 A ge:69 Y S ex:Female Date:02/24/2025 Address:[address] [place] [address] Pcp:YANIRA BURGOS Subjective: * Chief Complaints: * [...] 02/24/2025 Generated for Clemencia guadalupe/Hunter/Juliana on: 1 05:54 PM EDT
--- OUTSIDE RECORDS SUMMARY | 2025-06-11 10:20 | XMS_ITS ---
Author Organization [facility] Address [address] [place] [address] Care Team Providers Care Furniture Designer Name Role Phone AUBREY, KARTIK Primary Care Provider Valeriano Miranda Unavailable [phone] Allergies Allergen (clinical drug ingredient) Drug/Non Drug [...] Status Levemir FlexPen 100 UNIT/ML INJECT 100 UNITS UNDER THE SKIN TWO TIMES A DAY Subcutaneous for 30 Active Gabapentin 300 MG Oral for 90 Active Lansoprazole 30 MG TAKE ONE CAPSULE BY MOUTH TWICE A DAY for 90 Active Prevacid 30 MG 1 capsule [...] 1 tablet Orally Once a day Active Enalapril Maleate 20 [...] Status W/U Status Risk Notes Problem Pancreatitis (65711804) Pancreatitis (K85.90) Active confirmed Problem Hypertriglyceridemia (645741838) Hypertriglyceridemia (E78.1) Active confirmed Vital Signs Temperature 98.6 degrees Fahrenheit 06/11/20 25 Blood pressure systolic 001 mm Hg 06/11/20 25 Blood pressure diastolic 01 mm Hg 025 Height 63.50 in 06/11/2025 Weight 239 lbs 06/11/2025 BMI 41.67 kg/m2 06/11/2025 Encounters Encounter Location Date Provider Diagnosis [facility] [address] [place] [address] 06/11/2025 [facility] K22.70 ; Gastroesophageal reflux disease without [...] Provider Name:Valeriano Corona , 12/14/2025 01:00:00 PM, [address] [place] [address], [address], [place], [address], Progress Notes * RYAN SOLIMANOB:1955 ( 70 yo F)Acc No.[id number]:06/11/2025 Progress Notes Patient: NA CASTELLANOS Provider: Sonali Corona MD :1955 A ge:70 Y S ex:Female Date:06/11/2025 Address:[address] [place], [place] [id number] Pcp:YANIRA BURGOS Subjective: * Chief Complaints: * [...] her description. She describes being transferred from [facility] to [facility] in relation to the hypertriglyceridemia and [...] HEMA, Pulmonary embolus, Endometrial cancer-s/p Hysterectomy, Denies [place],CVA,renal disease, Hypertriglyceridemia, She had negative colonoscopies in [...] of over 2000. She was transferred from [facility] to [facility] for about a week or so.. * Surgical History: H ysterectomy for endometrial cancer 08/18, Rt. inginual hernia , Endoscopic sphincteroplasty of major papillia to try to treat pancreatitis in relation to her pancreas divisum-Dr. Aggarwal at [facility] [place] , Surgical minor sphincteroplasty to try to treat pancreatitis in relation to her pancreas divisum-at [facility] [place] with Dr. Clemente , Cholescystectomy 11/1997, Right [...] M iscellaneous: M arital status: . 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 N onsmoker; no alcohol. * Medications: T [...] ietary management education, guidance, and counseling, B MN management provided Y es. Urinary Incontinence: U [...] no reason specified.? * Follow Up: S adela 2025 * * The named appointment provid er may or may not be the originator of this progress note, and it is not deemed complete until electronically signed by the appointment provider. Sign off status: Pending * Provider: Sonali Corona MD Date: Generated for Clemencia guadalupe/Hunter/Shiraransmitting on: 05:53 PM EDT History and Physical Notes * [...] her description. She describes being transferred from [facility] to [facility] in relation to the hypertriglyceridemia and [...]
--- NOTE | 2025-06-15 14:37 | MHC.AMDMED ---
Intake Intake Visit Reasons: T2DM Passenger Locomotive Engineer Required: No Accompanied by: Spouse Allergies gentamicin Allergy (Severe, Verified 06/09/25 13:50) Difficulty Breathing Iodinated Contrast Media Allergy (Severe, Verified 06/09/25 13:50) Difficulty Breathing, nausea and vomiting latex (LATEX) Allergy (Severe, Verified 06/09/25 13:50) Anaphylaxis morphine Allergy (Severe, Verified 06/09/25 13:50) Anaphylaxis Penicillins Allergy (Severe, Verified 06/09/25 13:50) stopped breathing as an shellfish derived (SHELLFISH DERIVED) Allergy (Severe, Verified 06/09/25 13:50) Difficulty Breathing, swelling vancomycin Allergy (Severe, Verified 06/09/25 13:50) Difficulty Breathing azithromycin Allergy (Unknown, Verified 06/09/25 13:50) Unknown erythromycin base Allergy (Unknown, Verified 06/09/25 13:50) Unknown esomeprazole Allergy (Unknown, Verified 06/09/25 13:50) Unknown pantoprazole Adverse Reaction (Mild, Verified 06/09/25 13:50) Nausea and Vomiting HPI Comprehensive Diabetes Asmnt Most Recent Diabetes Results: Hemoglobin A1c 11.9 % 05/24/20 Microalb/Creat Ratio, (<30) 36.7 ug/mg cr H 03/25/24 Cholesterol, (<200) 211 mg/dL H 03/17/25 HDL Cholesterol, (>40) 39 mg/dL L 03/17/25 Triglycerides, (<150) 386 mg/dL H 03/17/25 Creatinine, (0.5-1.4) 0.79 mg/dL 06/08/25 BUN, (9-16) 14 mg/dL 06/08/25 Sodium, (135-145) 142 mmol/L 06/08/25 Potassium, (3.3-5.1) 3.7 mmol/L 06/08/25 Chloride, (96-108) 106 mmol/L 06/08/25 Carbon Dioxide, (22-29) 28 mmol/L 06/08/25 Calcium, (8.4-10.2) 9.5 mg/dL 03/17/25 AST, (5-31) 22 U/L 03/17/25 ALT, (0-31) 17 U/L 03/17/25 Total Protein, (6.5-8.0) 6.9 g/dL 03/17/25 Albumin, (3.5-5.0) 3.8 g/dL 03/17/25 PFSH Medical History (Updated 03/17/25 @ 15:53 by RODNEY Johnston) Venous stasis dermatitis Pancreatitis Chronic pancreatitis Hypertriglyceridemia Asthma Endometrial cancer Barretts esophagus GERD (gastroesophageal reflux disease) Pancreatic divisum CAD (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 artery disease) 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 Diabetes type 2, uncontrolled Cervical cancer Other and unspecified hyperlipidemia Essential hypertension Vitamin D deficiency T2DM (type 2 diabetes mellitus) HLD (hyperlipidemia) HTN (hypertension) Accelerated essential hypertension Embolism Surgical History History of esophagogastroduodenoscopy (EGD) Hx of colonoscopy (~07/03/23) Hx of removal of cyst Hx of hernia repair Hx of cholecystectomy Hx of endoscopy Hx of hysterectomy Family History Father Diabetes Mother Diabetes Social History Household Members: Spouse Housing: House Do you presently have visiting nurse or other home services: No Alcohol intake: never Comment: sleeping Patient Tobacco Use Status: Former Tobacco user e-Cigarette/Vaping Use: Former Use service: No Current occupational status: employed Current occupation: [employer] Cognitive needs: No Hearing needs: No Vision needs: Yes (rx glasses) Assessment & Plan Assessment & Plan (1) Diabetes: Code(s): E11.9 - Type 2 diabetes mellitus without complications Plan: Diabetes self-management education and support participation record Assessment/scale: 1= needs instructed? 2= needs review? 3= comprehend keep point? 4= demonstrates understanding/ competent? NC= Not Covered Topics Learning Objective: Initial visit Initial or post srvc Initial or post srvc Initial or post srvc Initial or post srvc Initial or post srvc Post srvc Comments Pre Edu-assessment/plan Outcome or reassess Outcome or reassess Outcome or reassess Outcome or reassess Outcome or reassess Outcome or reassess Diabetes pathophysiology 1 Healthy eating 1 Being active 1 Taking medication 1 Monitoring glucose 1 Acute complication 1 Chronic complicated 1 Lifestyle and healthy coping 1 Diabetes distress in support 1 ?Diabetes pathophysiology: ?Defined diabetes med identify own type of diabetes; list 3 options for treating diabetes Healthy eating: ?Described effect of type, amount and ?timing of food on blood glucose; list 3 methods for planning meal Being active: ?State effect of exercise on blood glucose level Taking medication: ?State effect of diabetes medications on diabetes; name diabetes medications taking, action and side effects Monitoring glucose: ?Identify recommended blood glucose targets and personal target Acute complication: ?List symptoms and treatment of hyper and hypoglycemia, DKA, sick day guidelines and guidelines for severe weather or situations of crisis and diabetes supply manage Chronic complication: ?To find the relationship of blood glucose levels to long-term complications of diabetes in screening and preventative measures Lifestyle and healthy coping: ?Described lifestyle and healthy coping strategies to rule out diabetes self-management Diabetes to stress and support: ?Recognize Diabetes to stress and be able to identified support options Learning objectives: The patient was provided with verbal and written education on the following topics as outlined below. The patient met all learning objectives and was able to verbalize understanding and provide teach back of education topics discussed . The patient was provided with the opportunity to ask questions and all questions were answered. Patient Assessment Assess patient education level/literacy/barriers, patient's last A1c on 03/17/2025 10.9% Patient is currently on Tresiba U 100 60 units b.i.d. NovoLog sliding scale Patient questions/concerns What is Diabetes? Pathophysiology How the body produces and uses insulin Identify type of DM Risk factors Signs of Diabetes Brief overview of Diabetes Management Monitoring blood sugar Following a meal plan Regular exercise Maintaining a healthy weight Taking medication as needed Members of the care team (PCP, RN, MA, RD, CDE, scientific programmer) Blood glucose monitoring When/how often to test Target blood sugar ranges Patient at visit to set up an GreenOwl Mobile 3+ with phone shashi Instructed Pt on what CGM can and can't do CGM Can: Give Pt minute by minute reading of glucose levels Displays glucose trend arrows that represents the direction glucose levels are fluctuating Give insight on decisions about how to dose insulin CGM cannot: Improve glucose control on its own Completely eliminate the need for all finger sticks Make dosing decision for you CGM is the reading of glucose in the interstitial fluid not actual blood glucose, finger sticks are still necessary when Pt's symptom?s do not match sensor reading and if sensors prompts Pt to do a fingerstick Instructed patient sensors water proof you can shower, or swim do not submerge sensor in water for over 30 minutes Is sensor falls off cannot put back in you need to replace sensor, customer service number given to patient for sensor replacement Sensor placed on the back of left arm Patient left visit with sensor in warmup Reviewed how to interpret trend arrows Discussed lag time between finger stick and sensor data.? Instructed patient the importance of having blood glucometer for backup testing if needed Reviewed delay of CGM from fingersticks Reminded Pt that if symptoms do not match sensor still needs to check fingersticks. Introduction to Nutrition Importance of healthy diet in managing DM Diet is personalized to individual preference Review patient?s regular diet/food preferences Who prepares meals/does food shopping/ Dining out?/ Barriers? How diet effects glucose Eating 3 balanced meals a day with small, healthy snacks between meals Review food groups Carbohydrates: What is a carbohydrate/Which food/food groups are considered carbohydrates Effect of carbohydrates on blood glucose Portion sizes Reading food labels Basic carb counting (if applicable per nursing assessment) Plate method Meal planning Recommendations: Follow plate method, consistent carbs and read nutritional labels. Smart Goal: Identify foods and current meal plan that contain carbohydrates Educational Materials: The patient was provided with the following written educational materials: Planning Healthy Meals Handout Patient Response to instructions: Comprehension of Instructions: Fair Readiness to make changes: Contemplation How confident they feel about making changes: Positive Portions of this note were created using voice recognition software, please excuse any words or phrases that may have been misinterpreted. Patient Instructions: Patient instruction: CGM provides information on blood glucose control throughout the day, including hyperglycemia and hypoglycemia. ? Continue to monitor blood glucose as instructed. Follow nutrition guidelines provided. Report any discomfort promptly to health care provider. ?Stay well-hydrated. You can bathe ,shower, swim and exercise while wearing the glucose sensor. Do not submerge glucose sensor in water for more than 30 minutes. Include regular daily activity. ADA recommends 30 minutes of exercise 5 days a week. Weight loss talk to PCP or Paper Production Engineer before starting new plan. Test blood sugar as directed; Fasting and 2hpp largest meal. Watch trends in results. Utilize results and to assess how food, physical activity and medications affect blood sugar results. Bring glucometer or CGM to next visit. Be knowledgeable about diabetes medication, its action, side effects, efficacy, toxicity, prescribed dosage, appropriate timing and frequency of administration, effect of missed and delayed doses and instructions for storage, travel and safety. Problem solving techniques to monitor hypo/hyperglycemia episodes and treatments. Reduce risk reduction behaviors, smoking cessation, regular eye, foot and dental examinations. Coding Level of Care Code Est Pt Level 1 (97250) Diagnoses Diabetes E11.9
--- OUTSIDE RECORDS SUMMARY | 2025-06-15 17:54 | XMS_ITS | Patient Health Record ---
[facility] Address [address] [address] Care Team Providers Care Senior Librarian Name Role Phone Armando Holloway MD Primary Care Provider Saira Carranza Unavailable [phone] Devan Hernández Unavailable [phone] Allergies Allergen (clinical drug ingredient) Drug/Non Drug [...] Polyneuropathy due to type 2 diabetes mellitus (638455646) Type 2 diabetes mellitus with diabetic polyneuropathy (E11.42) Active confirmed Problem Polyneuropathy due to diabetes mellitus type I (793888682) Type 1 diabetes mellitus with diabetic polyneuropathy (E10.42) Active confirmed Problem Lymphedema (04153018) Lymphedema (I89.0) Active confirmed Plan Of Treatment Pending Test Test Name Order Date X ray : Foot, left 3V 12/19/2022 [id number] SKIN LESIONS, 2 TO 4 08/17/20 21 [id number] SKIN LESIONS, 2 TO 4 12/07/19 22 [id number] DYSTROPHIC NAILS ANY # [id number] DYSTROPHIC NAILS ANY # Insurance Providers Payer Name Payer Address Payer Phone Subscriber Number Group Number Insured Name Patient Relationship to Insured Coverage Start Date Coverage End Date Medicare National [employer]t S[employer] [address] [facility] [place] [address] [id number] ClairRachanane Self - patient is the insured [facility] [address] [place] [address] [id number] Rachana Selfne Self - patient is the insured Medical (General) History Medical History History ICD Code Anemia asthma Back,Hip,and Knee pain Broken bones Cancer covid-19 High blood pressure Reflux ( GERD) Stomach ulcer Measles Chicken pox type II diabetes Surgical History Surgery Date(Month/Year) hysterectomy, vaginal endoscopic spinetoplast of major papila gall bladder inguinal hernia repair cyst removal-uterus Hospitalization History Reason Date(Month/Year) C pancreatitis 6 days 11/25/21 [facility] itis 5 day stay 07/2021
--- OUTSIDE RECORDS SUMMARY | 2025-06-15 17:55 | XMS_ITS | Patient Health Record ---
Author Organization [facility] Address [address] [place] [address] Care Team Providers Care Wood Club Neck Whipper Name Role Phone YANIRA BURGOS Primary Care Provider Valeriano Miranda [phone] Allergies Allergen (clinical drug ingredient) Drug/Non Drug [...] Active Morphine Sulfate Unknown Drug Allergy Active Reason For Referral No Information Medications Medication SIG (Take, Route, Frequency, Duration) Notes Start Date End Date Status Levemir FlexTouch Ac tive Lipitor 40 MG 1 tablet Orally Once a day Active Levemir FlexPen 100 UNIT/ML INJECT 100 UNITS UNDER THE SKIN TWO TIMES A DAY Subcutaneous for 30 Active Neurontin 300 MG 2 Orally QD A ctive Gabapentin 300 MG Oral for 90 Active Lopressor 100 MG 1 tablet with food O rally Twice a day Active Lansoprazole 30 MG TAKE ONE CAPSULE BY MOUTH TWICE A DAY for 90 Active amLODIPine Besylate 2.5 MG 1 tablet Orally Once a day Active Enalapril Maleate 20 MG 1 tablet Orally Twice a day Active Tricor 145 MG 1 tablet Orally Once a day Active oxyCODONE HCl 10 MG 1 tablet as needed O rally every 6 hrs Active Furosemide 40 MG 1 tablet Orally Once a day Active Prevacid 30 MG 1 capsule 1/2 to 1 h our before morning meal Orally Once a day Active Insulin Lispro (1 Unit Dial) Active Torsemide 40 MG 1 tablet Orally Once a day Active Albuterol Sulfate HFA Active hydrALAZINE HCl 50 MG 1 tablet with food Orally Twice a day Active Immunizations Vaccine Route Administration Date Status Comme nts Influenza Unknown 06/23/2024 Administered Influenza Unknown 06/03/2019 Refused Problems Problem Type SNOMED Code ICD Code Onset Dates Problem Status W/U Status Risk Notes Problem 512397808 Encounter for screening for malignant neoplasm of colon (Z12.11) Active confirmed Problem Diverticular disease of colon (221622737) Diverticulosis of large intestine without perforation or abscess without bleeding (K57.30) Active confirmed Problem 559093252 Other chronic pancreatitis (K86.1) Active confirmed Problem Screening for malignant neoplasm of rectum (264226587) Encounter for screening for malignant neoplasm of rectum (Z12.12) Active confirmed Problem 716877861 Gastroesophageal reflux disease without esophagitis (K21.9) Active confirmed Problem 710356674 Barretts esophag us without dysplasia (K22.70) Active confirmed Problem 314809660 Gastroesophageal reflux disease, esophagitis presence not specified (K21.9) Active confirmed Problem 914544001 Family history o f colon cancer (Z80.0) Active confirmed Problem 91662490 Constipation, unspecified constipation type (K59.00) Active confirmed Problem Gastritis (1866798) Gastritis (K29.70) Active c onfirmed Problem Ro esophagus (438326231) 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) Active confirmed Problem Hypertriglyceridemia (889420775) Hypertriglyceridemia (E78.1) Active confirmed Problem Pancreatitis (95218633) Pancreatitis (K85.90) Active confirmed Problem Gastroesophageal reflux disease (570321826) Esophageal reflux disease (K21.9) Active confirmed Problem 52046999 Hypertension, unspecified type (I10) Active confirmed Problem 62249389 Esophageal dysph agia (R13.10) Active confirmed Vital Signs Temperature 98.6 degrees Fahrenheit 06/11/2025 Blood pressure diastolic 01 mm Hg 06/11/2025 Height 63.50 in 06/11/2025 Blood pressure systolic 001 mm Hg 06/11/2025 Weight 239 lbs 06/11/2025 BMI 41.67 kg/m2 06/11/2025 Encounters Encounter Location Date Provider Diagnosis [facility] [address] [place] [address] 06/11/2025 Valeriano Cj [facility] K22.70 ; Gastroesophageal reflux disease without esophagitis K21.9 ; Family history of colon cancer Z80.0 ; Encounter for screening for malignant neoplasm of colon Z12.11 ; Encounter for screening for malignant neoplasm of rectum Z12.12 ; Pancreatitis K85.90 and Hypertriglyceridemia E78.1 [facility] [address] [place] [address] 10/27/2024 Valeriano Corona [facility] [address] [place] [address] 02/24/2025 Valeriano Corona Assessments Encounter Date Diagnosis (ICD Code) Assessment Notes Treatment Notes Treatment Clinical Notes Section Notes 06/11/2025 Gastroesophageal ref lux disease without esophagitis [...] keep you advised of her progress. 06/11/2025 Barretts esophagus without dysplasia (ICD-10 - [...] LIVER PROFILE 06/11/2025 CBC w DIFF 06/11/2025 IgG SUBCLASSES PANEL, SERUM 06/25/2012 IgG SUBCLASSES PANEL, SERUM 04/24/2012 CT ABD & PELVIS WITH PO CONT ONLY 2024 FLUOR. ANTINUCLEAR AB SCREEN (YULISSA) 06/09 FLUOR. ANTINUCLEAR AB SCREEN (YULISSA) 04/09 Triglycerides 06/11/2025 Amylase 06/11/2025 Lipase 06/11/2025 Future Test Test Name Order Date UPPER GI ENDOSCOPY 02/13/2012 UPPER GI ENDOSCOPY 11/30/2016 COLONOSCOPY 11/30/2016 UPPER GI ENDOSCOPY BALLOOON DILATION OF ESOPH 06/03/2019 UPPER GI ENDOSCOPY 03/07/2022 COLONOSCOPY 03/07/2022 UPPER GI ENDOSCOPY 04/12/2023 COLONOSCOPY 04/12/2023 Next Appt Details Provider Name:Valeriano Corona , 12/14/2025 01:00:00 PM, [address], [address], [place], [address], Insurance Providers Payer Name Payer Address Payer Phone Subscriber Number Group Number Insured Name Patient Relationship to Insured Coverage Start Date Coverage End Date [place] [address] [place] [address] [id number] NA SOLIMAN Self - patient is the insured [facility] [address] [place] [phone] [id number] NA SOLIMAN Self - patient is the insured Medical (General) History Medical History History ICD Code GERD Ro's Esophagus-upper en doscopies in February of 2012 and 2016 with the finding of a hiatal hernia but biopsies were negative for Ro's esophagus- she did have biopsies in 2008 that did show Ro esophagus, but without any dysplasia Pancreatitis-due to pancreas divisum and hypertriglyceridemia-last hospitalized in October of 2021-the CAT scan was c/w acute pancreatitis- lab work has been negative for any sign of autoimmune pancreatitis with IgG levels and HEMA Pulmonary embolus Endometrial cancer-s/p Hysterectomy Denies [place],CVA,renal disease Hypertriglyceridemia She had negative colonoscopies in [...] her triglyceride level was only 318 October 2021 Admitted in May with recurrent pancreatitis. Her triglyceride level was only 325 and her MRCP did not show any choledocholithiasis nor pancreatic duct abnormality Negative cardiac catheterization in 2021 . She is followed by Dr. Keating Upper endoscopy in June 10 023 did not reveal any evidence of esophagitis or Ro's esophagus Negative screening colonoscopy in 2022 Acute pancreatitis in November 2024 due to a triglyceride level of over 2000. [place] was [place] [facility] [place] [facility] for about a week or so. Surgical History Surgery Date(Month/Year) Wrist Right knee Cholescystectomy 11/1997 Surgical minor sphincteropla sty to try to treat pancreatitis in relation to her pancreas divisum-at [facility] [place] with Dr. Clemente Endoscopic sphincteroplasty of major papillia to try to treat pancreatitis in relation to her pancreas divisum-Dr. Aggarwal at [facility] [place] Rt. inginual hernia Hysterectomy for endometrial cancer 08/09 0
--- OUTSIDE RECORDS SUMMARY | 2025-06-15 17:55 | XMS_ITS | Clinical Summary ---
Author Organization [facility] Address [address] [place] [address] Care Team Providers Care Longshore Equipment Operator Name Role Phone Pcp, No Primary [...] day. 15 mL 5 Active pancrelipase (CREON) [address] Particles capsuleIndicatio ns:Severe acute [...] need to establish care with PCP and machine silk screen printer for outpatient management Assessment & Plan (11/21/2024 [...] drink = 0.6 oz pur e alcohol) [facility] Utilities Answer Date Recorded In the past 12 months has [employer], gas, oil, or water [employer] threatened to shut off services in your [...] any time in the past 12 m [facility], were you homeless or living in a assisted (including now)? No 11/18/2024 Comments Unknown Sex [...] - 99 mg/dL 11/23/2024 3:05 PM EDT [facility] Comment:Fasting: <100 mg/dL, Non-Fasting: <200 mg/dL (ADA 2005) Blood Urea Nitrogen (BUN) 9 8 - 21 mg/dL 11/23/2024 3:05 PM EDT [facility] Creatinine 0.8 0.4 - 1.1 mg/dL 11/23/2024 3:05 PM EDT [facility] eGFR 79 >59 11/23/2024 3:05 PM EDT [facility] Comment:CKD-EPI (2020) in mL /min/1.73 sq meters. Sodium 136 136 - 145 mmol/L 11/23/2024 3:05 PM EDT [facility] Potassium 3.9 3.4 - 5.3 mmol/L 11/23/2024 3:05 PM EDT [facility] Chloride 101 98 - 107 mmol/L 11/23/2024 3:05 PM EDT [facility] CO2 26 22 - 33 mmol/L 11/23/2024 3:05 PM T [facility] Calcium 9.5 8.7 - 10.5 mg/dL 11/23/2024 3:05 PM [facility] Alkaline Phosphatase 70 32 - 122 U/L 11/23/2024 3:05 PM [facility] Aspartate Aminotrans (AST) 27 10 - 50 U/L 11/23/2024 3:05 PM [facility] Alanine Aminotrans (ALT) 14 10 - 50 U/L 11/23/2024 3:05 PM [facility] Bilirubin, Total 0.4 0.2 - 1.0 mg/dL 11/23/2024 3:05 PM [facility] Protein, Total 6.6 6.3 - 8.3 g/dL 11/23/2024 3:05 PM [facility] Albumin 3.5 3.4 - 4.8 g/dL 11/23/2024 3:05 PM [facility] BUN/Creatinine Ratio 11 10.0 - 25.0 Ratio 11/23/2024 3:05 PM [facility] Globulin 3.1 1.5 - 3.9 g/dL 11/23/2024 3:05 PM [facility] Albumin/Globulin Ratio 1.1 1.0 - 3.0 Ratio 11/23/2024 3:05 PM [facility] Anion Gap 9 7 - 17 11/23/2024 3:05 PM [facility] Blood Blood specimen / Unknown 11/23/2024 2:23 PM EDT 11/23/2024 2:30 PM EDT us Darrellr Aurea Koenig DO LAB BLOOD ORDERABLES Final Resul t [address] [address], from Last 3 Months or Most Recently Relevant to Health Maintenance Insurance MEDICARE PART A & B [facility] SUPPLEMENT ONLY [facility] SUPPLEMENT ONLY MEDICARE PART A & B Advance Directives * Full Code (Latest Code Status on File) Date Activated Date Inactivated Comments 11/17/2024 7:48 PM Question Answer Comments Decision Thoroughly Discussed with: Patient Care Teams Longshore Equipment Operator Relationship Specialty Start Date End Date Pcp, No PCP - General General Medicine 11/18/24
== END 2025-06-15 15:26 | disposition home or self-care (01) ==
LOC: HO.ENCR 14:35
PROVIDERS: PCP Internal Medicine; Visit Provider Registered Nurse Diabetes Educator
DX: E11.9 Type 2 diabetes mellitus without complications (principal)

== ENCOUNTER → 2025-06-15 14:34 | Outpatient (BNVA) | payer MEDICARE, OTHER, SELFPAY | PROVIDERS: PCP Internal Medicine; Visit Provider Registered Nurse Diabetes Educator | DX: E11.9 Type 2 diabetes mellitus without complications (principal); Z79.4 Long term (current) use of insulin | CPT/HCPCS: 99211 ==

== ENCOUNTER 2025-06-22 14:42 | Outpatient (AMB) | payer MEDICARE, OTHER, SELFPAY ==
--- OUTSIDE RECORDS SUMMARY | 2024-09-16 05:00 | XMS_ITS ---
Author Organization [facility] Address [address] [place] [address] Care Team Providers Care Solar Project Manager Name Role Phone Armando Holloway MD Primary Care Provider Unavaila Saira Hurst Unavailable [phone] Riley Encounters Encounter Location Date Provider Diagnosis [facility] [address] [place] [address] 09/16/2024 Saria Willett Plan Of Treatment No Information Progress Notes * Rachana SOLIMANOscarOB:1955 ( 70 yo F)Acc No.[id number]:09/16/2024 Progress Note Patient: Felecia CASTELLANOS Provider: Byron Willett DPM :1955 A ge:69 Y S ex:Female Date:09/16/2024 Address:[address] [facility] Pcp:Armando Holloway MD Subjective: * Chief Complaints: [...] 09/16/2024 Generated for Clemencia guadalupe/Hunter/eTransmitting on: 1 05:36 PM EDT
--- OUTSIDE RECORDS SUMMARY | 2024-09-16 05:00 | XMS_ITS ---
Author Organization [facility] Address [address] [place] [address] Care Team Providers Care Bucket Wash Operator Name Role Phone Armando Holloway MD Primary Care Provider Unavaila Saira Hurst Unavailable [phone] Devan Hernández Unavailable [phone] REASON FOR VISIT Transfer to Different Provider Encounters Encounter Location Date Provider [facility] [address] [place] [address] 09/16/2024 Devan Hernández Plan Of Treatment No Information Progress Notes * Rachana SOLIMANOscarOB:1955 ( 70 yo F)Acc No.[id number]:09/16/2024 Progress Note Patient: Felecia CASTELLANOS Provider: Jane Kirkpatrick DPM :1955 A ge:69 Y S ex:Female Date:09/16/2024 Address:[address] [facility] Pcp:Armando Holloway MD Subjective: * Chief Complaints: [...] 09/16/2024 Generated for Clemencia guadalupe/Hunter/Juliana on: 1 05:35 PM EDT
--- OUTSIDE RECORDS SUMMARY | 2024-10-27 06:50 | XMS_ITS ---
Author Organization [facility] Address [address] [place] [address] Care Team Providers Care Launchman Name Role Phone YANIRA BURGOS Primary Care Provider Valeriano Miranda [phone] REASON FOR VISIT Patient presents today for abdominal pain Encounters Encounter Location Date Provider Diagnosis [facility] [address] [facility] [address] [place] [address] 10/27/2024 Valeriano Corona Plan Of Treatment Next Appt Details Provider Name:Valeriano Corona , 12/14/2025 01:00:00 PM, [address] [facility], [address], [place], [address], Progress Notes * CAROLEE SOLIMANNEDOB:1955 ( 70 yo F)Acc No.[id number]:10/27/2024 Progress Notes Patient: NA CASTELLANOS Provider: Sonali Corona MD :1955 A ge:69 Y S ex:Female Date:10/27/2024 Address:[address] [place], [place] [address] Pcp:YANIRA BURGOS Subjective: * Chief Complaints: * [...] 10/27/2024 Generated for Clemencia guadalupe/Hunter/Juliana on: 1 05:35 PM EDT
--- OUTSIDE RECORDS SUMMARY | 2025-02-24 09:40 | XMS_ITS ---
Author Organization [facility] Address [address] [place] [address] Care Team Providers Care Patient Account Representative Name Role Phone YANIRA BURGOS Primary Care Provider Valeriano Miranda [phone] REASON FOR VISIT abdominal pain Encounters Encounter Location Date Provider Diagnosis [facility] 10 [facility] [address] [place] [address] 02/24/2025 Valeriano Corona Plan Of Treatment Next Appt Details Provider Name:Valeriano Corona , 12/14/2025 01:00:00 PM, [address], [address], [place], [address], Progress Notes * JOURDAN CAROLEENEDOB:1955 ( 70 yo F)Acc No.[id number]:02/24/2025 Progress Notes Patient: NA CASTELLANOS Provider: Sonali Corona MD :1955 A ge:69 Y S ex:Female Date:02/24/2025 Address:[address] [place] [address] Pcp:YANIRA BURGOS Subjective: * Chief Complaints: * 1 . Abdominal pain. * Medical History: Objective: * Vitals: Assessment: Plan: * Treatment: * * The named appointment provid er may or may not be the originator of this progress note, and it is not deemed complete until electronically signed by the appointment provider. Sign off status: Pending * Provider: Sonali Corona MD Date: 0 02/24/2025 Generated for Clemencia guadalupe/Hunter/Juliana on: 1 05:35 PM EDT
--- OUTSIDE RECORDS SUMMARY | 2025-06-11 10:20 | XMS_ITS ---
Author Organization [facility] Address [address] [place] [address] Care Team Providers Care [facility] Strip Gauger Name Role Phone AUBREY, KARTIK Primary Care Provider Valeriano Miranda Unavailable [phone] Allergies Allergen (clinical drug ingredient) Drug/Non Drug Allergy documented on EMR Reaction Allergy Type Onset Date Status gentamicin Gentamicin Sulfate Unknown Drug Allergy Active esomeprazole Nexium (uncoded) Unknown Allergy Active Latex latex (uncoded) Unknown Allergy Acti ve Shellfish (FN) shell fish (uncoded) Unknown Allergy Active CT Scan dye (uncoded) Unknown Allergy Active morphine Morphine Unknown Drug Allergy Active Penicillin Unknown Drug Allergy Active vancomycin Vancomycin HCl Unknown Drug Allergy A ctive tetracycline Tetracycline HCl Unknown Drug Allergy Active Morphine Sulfate Unknown Drug Allergy Active REASON FOR VISIT Patient presents today for mcdermott's ,gerd Medications Medication SIG (Take, Route, Frequency, Duration) Notes Start Date End Date Status Levemir FlexPen 100 UNIT/ML INJECT 100 U NITS UNDER THE SKIN TWO TIMES A DAY Subcutaneous; Duration: 30 Active Gabapentin 300 MG Oral; Duration: 90 Active Lansoprazole 30 MG TAKE ONE CAPSULE BY MOUTH TWICE A DAY; Duration: 90 Active Prevacid 30 MG 1 capsule 1/2 to 1 h our before morning meal Orally Once a day Active Torsemide 40 MG 1 tablet Orally Once a day Active Levemir FlexTouch Ac tive oxyCODONE HCl 10 MG 1 tablet as needed O rally every 6 hrs Active Furosemide 40 MG 1 tablet Orally Once a day Active Insulin Lispro (1 Unit Dial) Active Albuterol Sulfate HFA Active Neurontin 300 MG 2 Orally QD A ctive Lopressor 100 MG 1 tablet with food O rally Twice a day Active amLODIPine Besylate 2.5 MG 1 tablet Oral ly Once a day Active Enalapril Maleate 20 MG 1 tablet Orally Twice a day Active Tricor 145 MG 1 tablet Orally Once a day Active Lipitor 40 MG 1 tablet Orally Once a day Active hydrALAZINE HCl 50 MG 1 tablet with food Orally Twice a day Active Problems Problem Type SNOMED Code ICD Code Onset Dates Problem Status W/U Status Risk Notes Problem Pancreatitis (56156390) Pancreatitis (K85.90) Active confirmed Problem Hypertriglyceridemia (950427872) Hypertriglyceridemia (E78.1) Active confirmed Vital Signs Temperature 98.6 degrees Fahrenheit 06/11/20 25 Blood pressure systolic 001 mm Hg 06/11/20 25 Blood pressure diastolic 01 mm Hg 025 Height 63.50 in 06/11/2025 Weight 239 lbs 06/11/2025 BMI 41.67 kg/m2 06/11/2025 Encounters Encounter Location Date Provider Diagnosis [facility] [address] [place] [address] 06/11/2025 Valeriano Corona Barretts esophagus w [facility] dysplasia K22.70 ; Gastroesophageal reflux disease without esophagitis K21.9 ; Family history of colon cancer Z80.0 ; Encounter for screening for malignant neoplasm of colon Z12.11 ; Encounter for screening for malignant neoplasm of rectum Z12.12 ; Pancreatitis K85.90 and Hypertriglyceridemia E78.1 Assessments Encounter Date Diagnosis (ICD Code) Assessment Notes Treatment Notes Treatment Clinical Notes Section Notes 06/11/2025 Barretts esophagus without dysplasia (ICD-10 - K22.70) Overall, Na appears well from a clinical standpoint. She has had longstanding abdominal pain that was felt to be related to a component of some chronic pancreatitis due to all of her episodes of acute pancreatitis. However, I shall check a follow-up CT scan of the abdomen and pancreas to be sure she did not develop a pseudocyst after the episode earlier this year. I shall also check the below laboratories including pancreatic enzymes, triglyceride level, and liver profile. Assuming the CT scan does not show any significant abnormalities then I would plan to see her in the Spring for a follow-up visit. I did advise her to be sure to continue her regimen for the hyperglyceridem ia. I did advise her to contact me prior to the next appointment if she has any problems or questions I can be of assistance with. We did review that she will be due for a follow-up upper endoscopy and colonoscopy in 2027. Na was comfortable with this plan. Thank you again for allowing me to participate in Na's care. I shall continue to keep you advised of her progress. 06/11/2025 Gastroesophageal ref lux disease without esophagitis (ICD-10 - K21.9) Overall, Na appears well from a clinical standpoint. She has had longstanding abdominal pain that was felt to be related to a component of some chronic pancreatitis due to all of her episodes of acute pancreatitis. However, I shall check a follow-up CT scan of the abdomen and pancreas to be sure she did not develop a pseudocyst after the episode earlier this year. I shall also check the below laboratories including pancreatic enzymes, triglyceride level, and liver profile. Assuming the CT scan does not show any significant abnormalities then I would plan to see her in the Spring for a follow-up visit. I did advise her to be sure to continue her regimen for the hyperglyceridem ia. I did advise her to contact me prior to the next appointment if she has any problems or questions I can be of assistance with. We did review that she will be due for a follow-up upper endoscopy and colonoscopy in 2027. Na was comfortable with this plan. Thank you again for allowing me to participate in Na's care. I shall continue to keep you advised of her progress. 06/11/2025 Family history of co kelsey cancer (ICD-10 - Z80.0) Overall, Na appears well from a clinical standpoint. She has had longstanding abdominal pain that was felt to be related to a component of some chronic pancreatitis due to all of her episodes of acute pancreatitis. However, I shall check a follow-up CT scan of the abdomen and pancreas to be sure she did not develop a pseudocyst after the episode earlier this year. I shall also check the below laboratories including pancreatic enzymes, triglyceride level, and liver profile. Assuming the CT scan does not show any significant abnormalities then I would plan to see her in the Spring for a follow-up visit. I did advise her to be sure to continue her regimen for the hyperglyceridem ia. I did advise her to contact me prior to the next appointment if she has any problems or questions I can be of assistance with. We did review that she will be due for a follow-up upper endoscopy and colonoscopy in 2027. Na was comfortable with this plan. Thank you again for allowing me to participate in Na's care. I shall continue to keep you advised of her progress. 06/11/2025 Encounter for screen ing for malignant neoplasm of colon (ICD-10 - Z12.11) Overall, Na appears well from a clinical standpoint. She has had longstanding abdominal pain that was felt to be related to a component of some chronic pancreatitis due to all of her episodes of acute pancreatitis. However, I shall check a follow-up CT scan of the abdomen and pancreas to be sure she did not develop a pseudocyst after the episode earlier this year. I shall also check the below laboratories including pancreatic enzymes, triglyceride level, and liver profile. Assuming the CT scan does not show any significant abnormalities then I would plan to see her in the Spring for a follow-up visit. I did advise her to be sure to continue her regimen for the hyperglyceridem ia. I did advise her to contact me prior to the next appointment if she has any problems or questions I can be of assistance with. We did review that she will be due for a follow-up upper endoscopy and colonoscopy in 2027. Na was comfortable with this plan. Thank you again for allowing me to participate in Na's care. I shall continue to keep you advised of her progress. 06/11/2025 Encounter for screen ing for malignant neoplasm of rectum (ICD-10 - Z12.12) Overall, Na appears well from a clinical standpoint. She has had longstanding abdominal pain that was felt to be related to a component of some chronic pancreatitis due to all of her episodes of acute pancreatitis. However, I shall check a follow-up CT scan of the abdomen and pancreas to be sure she did not develop a pseudocyst after the episode earlier this year. I shall also check the below laboratories including pancreatic enzymes, triglyceride level, and liver profile. Assuming the CT scan does not show any significant abnormalities then I would plan to see her in the Spring for a follow-up visit. I did advise her to be sure to continue her regimen for the hyperglyceridem ia. I did advise her to contact me prior to the next appointment if she has any problems or questions I can be of assistance with. We did review that she will be due for a follow-up upper endoscopy and colonoscopy in 2027. Na was comfortable with this plan. Thank you again for allowing me to participate in Na's care. I shall continue to keep you advised of her progress. 06/11/2025 Pancreatitis (ICD-10 - K85.90) Overall, Na appears well from a clinical standpoint. She has had longstanding abdominal pain that was felt to be related to a component of some chronic pancreatitis due to all of her episodes of acute pancreatitis. However, I shall check a follow-up CT scan of the abdomen and pancreas to be sure she did not develop a pseudocyst after the episode earlier this year. I shall also check the below laboratories including pancreatic enzymes, triglyceride level, and liver profile. Assuming the CT scan does not show any significant abnormalities then I would plan to see her in the Spring for a follow-up visit. I did advise her to be sure to continue her regimen for the hyperglyceridem ia. I did advise her to contact me prior to the next appointment if she has any problems or questions I can be of assistance with. We did review that she will be due for a follow-up upper endoscopy and colonoscopy in 2027. Na was comfortable with this plan. Thank you again for allowing me to participate in Na's care. I shall continue to keep you advised of her progress. 06/11/2025 Hypertriglyceridemia (ICD-10 - E78.1) Overall, Na appears well from a clinical standpoint. She has had longstanding abdominal pain that was felt to be related to a component of some chronic pancreatitis due to all of her episodes of acute pancreatitis. However, I shall check a follow-up CT scan of the abdomen and pancreas to be sure she did not develop a pseudocyst after the episode earlier this year. I shall also check the below laboratories including pancreatic enzymes, triglyceride level, and liver profile. Assuming the CT scan does not show any significant abnormalities then I would plan to see her in the Spring for a follow-up visit. I did advise her to be sure to continue her regimen for the hyperglyceridem ia. I did advise her to contact me prior to the next appointment if she has any problems or questions I can be of assistance with. We did review that she will be due for a follow-up upper endoscopy and colonoscopy in 2027. Na was comfortable with this plan. Thank you again for allowing me to participate in Na's care. I shall continue to keep you advised of her progress. Plan Of Treatment Pending Test Test Name Order Date LIVER PROFILE 06/11/2025 CBC w DIFF 06/11/2025 CT ABD & PELVIS WITH PO CONT ONLY 2024 Triglycerides 06/11/2025 Amylase 06/11/2025 Lipase 06/11/2025 Next Appt Details Follow Up: Spring 2025, Reas on: Provider Name:Valeriano Corona , 12/14/2025 01:00:00 PM, [address] [place] [address], [address], [place], [address], Progress Notes * CAROLEE SOLIMANNEDOB:1955 ( 70 yo F)Acc No.[id number]:06/11/2025 Progress Notes Patient: NA CASTELLANOS Provider: Sonali Corona MD :1955 A ge:70 Y S ex:Female Date:06/11/2025 Address:[address] [place], [place] [id number] Pcp:YANIRA BURGOS Subjective: * Chief Complaints: * 1 . Patient presents today for mcdermott's ,gerd. * HPI: i ncontinence: I saw Na in follow-up today in regard to her abdominal pain, a history of pancreatitis in relation to hypertriglyceridemia and previous known pancreas divisum, as well as her history of reflux with associated Mcdermott's esophagus and family history of colon cancer. I last saw Na in June 2023, at which time she underwent a follow-up upper endoscopy and colonoscopy. The colonoscopy was negative for any polyps. The upper endoscopy revealed just some minimal changes of reflux but no esophagitis nor Mcdermott's esophagus on biopsies. She has continued on her PPI and describes that she is not having any significant heartburn or dysphagia. She did have an episode of acute pancreatitis in November in relation to a triglyceride level of over 2000 by her description. She describes being transferred from [facility] to [facility] in relation to the hypertriglyceridemia and pancreatitis. She describes that she has not had any problems since then and has remained compliant with her medication for the hypertriglyceridemia. She has not had any further imaging studies since then. She presently describes that she is having fairly frequent episodes of some postprandial mid to lower abdominal pain. She has not had any problem with eating per se, but does have her discomfort after eating quite regularly. She denies any significant heartburn or dysphagia. She denies any nausea or vomiting. She denies any signs of jaundice or weight loss. Her bowel movements remain somewhat irregular but there has been no sign of bleeding. Laboratories in March showed a triglyceride level of 386, hemoglobin A1c of 10.9, hemoglobin 12.3,. * Medical History: G ERD, Mcdermott's Esophagus-upper endoscopies in February of 2012 and 2016 with the finding of a hiatal hernia but biopsies were negative for Mcdermott's esophagus- she did have biopsies in 2008 that did show Mcdermott esophagus, but without any dysplasia, Pancreatitis-due to pancreas divisum and hypertriglyceridemia-last hospitalized in October of 2021-the CAT scan was c/w acute pancreatitis- lab work has been negative for any sign of autoimmune pancreatitis with IgG levels and HEMA, Pulmonary embolus, Endometrial cancer-s/p Hysterectomy, Denies RI,CVA,renal disease, Hypertriglyceridemia, She had negative colonoscopies in 2003, 05/2011, and 02/2017, IDDM, Hypertension, Asthma, EGD in 06/2019-this was done for evaluation of some dysphagia. There was no significant esophagitis, and biopsies from the esophagus were negative for eosinophilic esophagitis and negative for any definitive Mcdermott's esophagus. There was no sign of any esophageal stricture nor significant esophagitis. The [place]unction was dilated with an 18 to 20mm balloon, although without any appreciable effect.Gastric biopsies were negative for H. pylori and benign gastric polyps were biopsied as well. She was continued on her PPI for presumed esophageal spasm in regard to the reflux. , She was admitted in 2020 and October of 2021 with regard to recurrent pancreatitis- her triglyceride level was only 318 October 2021, Admitted in May of 2022 with recurrent pancreatitis. Her triglyceride level was only 325 and her MRCP did not show any choledocholithiasis nor pancreatic duct abnormality, Negative cardiac catheterization in 2021. She is followed by Dr. Keating, Upper endoscopy in June 2023 did not reveal any evidence of esophagitis or Mcdermott's esophagus, Negative screening colonoscopy in June 2023, Acute pancreatitis in November 2024 due to a triglyceride level of over 2000. She was transferred from [facility] to [facility] for about a week or so.. * Surgical History: H ysterectomy for endometrial cancer 08/18, Rt. inginual hernia , Endoscopic sphincteroplasty of major papillia to try to treat pancreatitis in relation to her pancreas divisum-Dr. Aggarwal at [facility] , Surgical minor sphincteroplasty to try to treat pancreatitis in relation to her pancreas divisum-at [facility] with Dr. Clemente , Cholescystectomy 11/1997, Right knee , Wrist . * Family History: F ather: , Colon CA-Father, diagnosed with Colon cancer. M other: , diagnosed with Heart disease, Diabetes, HTN (hypertension). P aternal Grand Father: , Colon CA-Paternal Grandfather, diagnosed with Colon cancer. S iblings: Colon polyps-Brother. No family history of liver cancer. * Social History: T obacco Use: T obacco Use/Smoking A re you a: former smoker. D rugs/Alcohol: A lcohol Screen P oints: 0, Interpretation: Negative. M iscellaneous: M arital status: . 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 N onsmoker; no alcohol. * Medications: T aking Prevacid 30 MG Capsule Delayed Release 1 capsule 1/2 to 1 hour before morning meal Orally Once a day , Taking Torsemide 40 MG Tablet 1 tablet Orally Once a day , Taking hydrALAZINE HCl 50 MG Tablet 1 tablet with food Orally Twice a day , Taking Lipitor 40 MG Tablet 1 tablet Orally Once a day , Taking Neurontin 300 MG Capsule 2 Orally QD , Taking Lopressor 100 MG Tablet 1 tablet with food Orally Twice a day , Taking amLODIPine Besylate 2.5 MG Tablet 1 tablet Orally Once a day , Taking Enalapril Maleate 20 MG Tablet 1 tablet Orally Twice a day , Taking Tricor 145 MG Tablet 1 tablet Orally Once a day , Taking oxyCODONE HCl 10 MG Tablet 1 tablet as needed Orally every 6 hrs , Taking Furosemide 40 MG Tablet 1 tablet Orally Once a day , Taking Insulin Lispro (1 Unit Dial) , Taking Albuterol Sulfate HFA , Taking Levemir FlexTouch , Taking Levemir FlexPen 100 UNIT/ML Solution Pen-injector INJECT 100 UNITS UNDER THE SKIN TWO TIMES A DAY Subcutaneous , Taking Gabapentin 300 MG Capsule Oral , Taking Lansoprazole 30 MG Capsule Delayed Release TAKE ONE CAPSULE BY MOUTH TWICE A DAY , Medication List reviewed and reconciled with the patient * Allergies: G entamicin Sulfate, Vancomycin HCl, Penicillin, Morphine Sulfate, Tetracycline HCl, CT Scan dye, shell fish, latex, Nexium, Morphine. Objective: * Vitals: W t:239lbs, Ht: 63.50 in, BMI: 41.67 Index, BP:001/01mm Hg, Temp:98.6, Wt-k.41. Assessment: * Assessment: 1. B arretts esophagus without dysplasia - K22.70 (Primary) 2 . G astroesophageal reflux disease without esophagitis - K21.9 3 . F amily history of colon cancer - Z80.0 4 . E ncounter for screening for malignant neoplasm of colon - Z12.11 5 . E ncounter for screening for malignant neoplasm of rectum - Z12.12 ? 6 . P ancreatitis - K85.90 7 . H ypertriglyceridemia - E78.1 Overall, Na appears well from a clinical standpoint. She has had longstanding abdominal pain that was felt to be related to a component of some chronic pancreatitis due to all of her episodes of acute pancreatitis. However, I shall check a follow-up CT scan of the abdomen and pancreas to be sure she did not develop a pseudocyst after the episode earlier this year. I shall also check the below laboratories including pancreatic enzymes, triglyceride level, and liver profile. Assuming the CT scan does not show any significant abnormalities then I would plan to see her in the Spring for a follow-up visit. I did advise her to be sure to continue her regimen for the hyperglyceridemia. I did advise her to contact me prior to the next appointment if she has any problems or questions I can be of assistance with. We did review that she will be due for a follow-up upper endoscopy and colonoscopy in 2027. Na was comfortable with this plan. Thank you again for allowing me to participate in Na's care. I shall continue to keep you advised of her progress. Plan: * Treatment: * 2.?Hypertriglyceridemia?LAB: LIVER PROFILE ?LAB: CBC w DIFF ?LAB: Triglycerides ?LAB: Amylase ?LAB: Lipase ?Imaging: CT ABD & PELVIS WITH PO CONT ONLY* [facility] 06/11/2025 03: 16:17 PM EDT > order faxed for booking appt * * Preventive Medicine: Counseling: C are goal follow-up plan: A terry Normal BMI Follow-up D ietary management education, guidance, and counseling, B RI management provided Y es. Urinary Incontinence: U rinary Incontinence A ssessment: A bsent, P daisy of care documented: N o, reason not specified. Screenings: F all Risk Screening F all Risk Assessment: O ne fall with injury in the past year, S creening: O ne fall with injury in the past year, A ssessment: Not performed, no reason specified, P daisy of Care: N ot documented, no reason specified.? * Follow Up: S prin 2025 * * The named appointment provid er may or may not be the originator of this progress note, and it is not deemed complete until electronically signed by the appointment provider. Sign off status: Pending * Provider: Sonali Corona MD Date: Generated for Clemencia guadalupe/Hunter/Everitting on: 05:35 PM EDT History and Physical Notes * HPI (History of Present Illness) Category Sub-Category Detail Notes Category Not es incontinence I saw Na in follow-up today in regard to her abdominal pain, a history of pancreatitis in relation to hypertriglyceridemia and previous known pancreas divisum, as well as her history of reflux with associated Mcdermott's esophagus and family history of colon cancer. I last saw Na in June 2023, at which time she underwent a follow-up upper endoscopy and colonoscopy. The colonoscopy was negative for any polyps. The upper endoscopy revealed just some minimal changes of reflux but no esophagitis nor Mcdermott's esophagus on biopsies. She has continued on her PPI and describes that she is not having any significant heartburn or dysphagia. She did have an episode of acute pancreatitis in November in relation to a triglyceride level of over 2000 by her description. She describes being transferred from [facility] to [facility] in relation to the hypertriglyceridemia and pancreatitis. She describes that she has not had any problems since then and has remained compliant with her medication for the hypertriglyceridemia. She has not had any further imaging studies since then. She presently describes that she is having fairly frequent episodes of some postprandial mid to lower abdominal pain. She has not had any problem with eating per se, but does have her discomfort after eating quite regularly. She denies any significant heartburn or dysphagia. She denies any nausea or vomiting. She denies any signs of jaundice or weight loss. Her bowel movements remain somewhat irregular but there has been no sign of bleeding. Laboratories in March showed a triglyceride level of 386, hemoglobin A1c of 10.9, hemoglobin 12.3,
--- NOTE | 2025-06-22 14:51 | A.OFFVIS_ITS ---
Vital Signs 06/22/25 14:56 Height 5 ft 2 in Weight 242 lb 15.19 oz BMI 44.4 BP 172/82 H Blood Pressure Location Rt brachial Position Sitting Pulse 69 Pulse Source Pulse Oximeter Pulse Oximetry (%) 98 Oxygen Delivery Method Room Air Intake Visit Reasons: DM Intake Note: Patient present today for T2DM. Last Diabetic Eye exam: December or January 2025 [facility] Last Podiatry Visit: approx 1.5 years, [facility] Random Glucose: 154 mg/dl Hgb A1C: 9.5% 06/22/2025 Straw Hat Plunger Operator Required: No Accompanied by: Self / Same As Patient Allergies gentamicin Allergy (Severe, Verified 06/22/25 14:56) Difficulty Breathing Iodinated Contrast Media Allergy (Severe, Verified 06/22/25 14:56) Difficulty Breathing, nausea and vomiting latex (LATEX) Allergy (Severe, Verified 06/22/25 14:56) Anaphylaxis morphine Allergy (Severe, Verified 06/22/25 14:56) Anaphylaxis Penicillins Allergy (Severe, Verified 06/22/25 14:56) stopped breathing as an infant shellfish derived (SHELLFISH DERIVED) Allergy (Severe, Verified 06/22/25 14:56) Difficulty Breathing, swelling vancomycin Allergy (Severe, Verified 06/22/25 14:56) Difficulty Breathing azithromycin Allergy (Unknown, Verified 06/22/25 14:56) Unknown erythromycin base Allergy (Unknown, Verified 06/22/25 14:56) Unknown esomeprazole Allergy (Unknown, Verified 06/22/25 14:56) Unknown pantoprazole Adverse Reaction (Mild, Verified 06/22/25 14:56) Nausea and Vomiting Medication List - Last Reconciled 06/22/25 by Valeriano Wells MD albuterol sulfate 90 mcg/actuation inhalation atorvastatin 40 mg PO DAILY blood-glucose sensor (FreeStyle Bettie 3 Plus Sensor device) As directed change every 15 days enalapril maleate 20 mg PO BID fenofibrate nanocrystallized 145 mg PO DAILY gabapentin 600 mg PO BEDTIME glucagon (Gvoke HypoPen 2-Pack) 1 mg (0.2 mL) subcut ONCE hydralazine 50 mg PO BID insulin aspart U-100 1 sliding scale dose subcut QIDACHS insulin degludec (Tresiba FlexTouch U-100 insulin) 60 units subcut BID lansoprazole 30 mg PO BID metoprolol tartrate 200 mg PO BEDTIME oxycodone 10 mg PO BID PRN torsemide 40 mg PO Q OTHER DAY HPI Comments Details: Patient is a 70-year-old female with DM type 2 diagnosed at age 38, who presents for management of diabetes. . During the continuous glucose monitoring trial she had an episode of pancreatitis and had to decrease the dose of insulin due to hypoglycemia. Past medical history: DM2, HLD, HTG, HTN, recurrent pancreatitis Micro and macrovascular complications: + nephropathy, + neuropathy, + CAD Diabetes medications: Tresiba 50 units Novolog BG <111 0 units, 111-150 - 0 units, 151-200 2 units, 201-250 4 units, 251-300 6 units, 301-350 8 units, >350 10 units Max daily dose 40 units Bettie download shows she is using the sensor 46% of the time. Average glucose is 176 with G mi of 7.5% and variability 40.2%. 46% range with 31% hyperglycemia and 18% very hyperglycemic and 4% hypoglycemic with 1% very hypoglycemic. Pen shows declining blood sugars overnight into the hypoglycemic range with increases in point of cares after supper Reports wkly basis of hypoglycemia daily overnight Symptoms reported: numbness, tingling, cramping in lower extremities Hypoglycemia: , symptoms of sweating and disoriented, when forgets to eat, uses glucose tabs. Rechecks 15 min later Hyperglycemia: urinary frequency, polydypsia and nocturia when blood glucose . 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 Senior J2Ee Developer: waiting for appointment . Ophthalmology evaluation: January 2025 , she denies retinopathy . Other specialists: reading assistant, resistance welding machine operator, treating engineer helper Laboratory Tests 01/31/21 02/03/21 02/03/21 15:47 14:26 14:26 Creatinine Estimated GFR Hgb A1c (Clinic) 9.2 H Hemoglobin A1c % 10.2 Triglycerides 528 Cholesterol 197 LDL Cholesterol Direct HDL Cholesterol 32 02/03/21 05/22/21 14:26 11:30 Creatinine 1.03 Estimated GFR 53 Hgb A1c (Clinic) Hemoglobin A1c % Triglycerides Cholesterol LDL Cholesterol Direct 43 HDL Cholesterol 09/27/20 15:50 Microalb/Creat Ratio 18.2 [facility] Medical History (Updated 03/17/25 @ 15:53 by RODNEY Johnston) Venous stasis dermatitis Pancreatitis Chronic pancreatitis Hypertriglyceridemia Asthma Endometrial cancer Barretts esophagus GERD (gastroesophageal reflux disease) Pancreatic divisum CAD (coronary artery disease) 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 insulin Diabetes type 2, uncontrolled Cervical cancer Other and unspecified hyperlipidemia Essential hypertension Vitamin D deficiency T2DM (type 2 diabetes mellitus) HLD (hyperlipidemia) HTN (hypertension) Accelerated essential hypertension Embolism Surgical History History of esophagogastroduodenoscopy (EGD) Hx of colonoscopy (~07/03/23) Hx of removal of cyst Hx of hernia repair Hx of cholecystectomy Hx of endoscopy Hx of hysterectomy Family History Father Diabetes Mother Diabetes Social History Household Members: Spouse Housing: House Do you presently have visiting nurse or other home services: No Alcohol intake: never Comment: sleeping Patient Tobacco Use Status: Former Tobacco user e-Cigarette/Vaping Use: Former Use service: No Current occupational status: employed Current occupation: [employer] Cognitive needs: No Hearing needs: No Vision needs: Yes (rx glasses) Physical Exam Vital Signs: Last Vital Signs Pulse 69 06/22/25 14:56 BP 172/82 H 06/22/25 14:56 Pulse Ox 98 06/22/25 14:56 Oxygen Delivery Method Room Air 06/22/25 14:56 BMI result Body Mass Index 44.4 Absence of Cushingoid features. Absence of acromegalic features. Neck exam reveals nl size thyroid about 15 gms. No thyroid nodules palpable. No carotid bruits present. Lungs CTA. Heart S1 S2, Reg R/R. No M/R/ G. Skin exam reveals absence of vitiligo or acanthosis nigricans. Abdominal exam reveals Soft NT/ND with NA BS. No organomegaly present. Neck Other: . Extrem Other: Visual exam of foot performed. 3 + pitting edema to ankles No ulcerations or open lesions. No onchomycosis, no callouses.Pulses 2 + distally Sensation intact to monofilament exam. Vibratory sensation sensed is decreased with 128 Hz tuning fork Results AMB Hemoglobin A1c AMB Hemoglobin A1c 9.5 % Last Edit by NENO Suarez on 06/22/25 15:25 Results Reviewed Results Reviewed: Laboratory Last Values Glucose (Clinic) 154 mg/dL (60-115) H 06/22/25 15:02 Hgb A1c (Clinic) 9.5 % (4.0-6.0) H 06/22/25 15:05 Assessment & Plan Assessment & Plan (1) Diabetes type 2, uncontrolled: Code(s): E11.65 - Type 2 diabetes mellitus with hyperglycemia Category: Medical Qualifiers: Glycemic state: with hyperglycemia Qualified Code(s): E11.65 - Type 2 diabetes mellitus with hyperglycemia Plan: This is a 70-year-old white female with a history of type 2 diabetes in the setting of chronic pancreatitis being treated with basal insulin with fair glycemic control and known microvascular macrovascular complications namely neuropathy, nephropathy and CAD. There is substantial hypoglycemia occurring mid morning with hyperglycemia occurring post-dinner The plan is to decrease the Tresiba to 40 units and then to 30 units if continued hypoglycemia. Would change pre dinner NovoLog to Novolog BG <111 2 units, 111-150 - 2 units, 151-200 3 units, 201-250 4 units, 251-300 6 units, 301-350 8 units, >350 10 units Patient is a follow up with the clinical nurse educator to consider use of insulin pump in future Orders: Orders AMB Hemoglobin A1c Today E11.65 - Type 2 diabetes mellitus with hyperglycemia Coding Level of Care Code Est Pt Level 4 (85679) Complex EM visit Add On G2211 Diagnoses Uncontrolled type 2 diabetes mellitus with hyperglycemia E11.65 Glycemic state: with hyperglycemia
[2025-06-22 14:56] VITALS: BP 172/82; PULSE 69; O2SAT 98; BMI 44.4
[2025-06-22 15:06] LABS: Glucose, Whole Blood 154 mg/dL (60-115)
--- OUTSIDE RECORDS SUMMARY | 2025-06-22 17:36 | XMS_ITS | Patient Health Record ---
Author Organization [facility] Address [address] [place] [address] Care Team Providers Care Edge Grinder Name Role Phone YANIRA BURGOS Primary Care Provider Valeriano Miranda [phone] Allergies Allergen (clinical drug ingredient) Drug/Non Drug [...] Active Levemir FlexPen 100 UNIT/ML INJECT 100 U NITS UNDER THE SKIN TWO TIMES A DAY Subcutaneous; Duration: 30 Active Neurontin 300 MG 2 Orally QD A ctive Gabapentin 300 MG Oral; Duration: 90 Active Lopressor 100 MG 1 tablet with food O rally Twice a day Active Lansoprazole 30 MG TAKE ONE CAPSULE BY MOUTH TWICE A DAY; Duration: 90 Active amLODIPine Besylate 2.5 MG 1 [...] Problem Status W/U Status Risk Notes Problem Screening for malignant neoplasm of colon (351864142) Encounter for screening for malignant neoplasm of colon (Z12.11) Active confirmed Problem Diverticular disease of colon (315337239) Diverticulosis of large intestine without perforation or abscess without bleeding (K57.30) Active confirmed Problem Chronic pancreatitis (185703830) Other chronic pancreatitis (K86.1) Active confirmed Problem Screening for malignant neoplasm of rectum (524140754) Encounter for screening for malignant neoplasm of rectum (Z12.12) Active confirmed Problem Gastroesophageal reflux disease without esophagitis (256265099) Gastroesophageal reflux disease without esophagitis (K21.9) Active confirmed Problem Ro's esophagus (797172633) Barretts esophagus without dysplasia (K22.70) Active confirmed Problem Gastroesophageal reflux disease (548524375) Gastroesophageal reflux disease, esophagitis presence not specified (K21.9) Active confirmed Problem Family History of Cancer of Colon (Situation) (500720750) Family history of colon cancer (Z80.0) Active confirmed Problem Constipation (04013483) Constipation, unspecified constipation type (K59.00) Active confirmed Problem Gastritis (1896428) Gastritis (K29.70) Active c onfirmed Problem Ro esophagus (531276173) 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) Active confirmed Problem Hypertriglyceridemia (142411878) Hypertriglyceridemia (E78.1) Active confirmed Problem Pancreatitis (33441516) Pancreatitis (K85.90) Active confirmed Problem Gastroesophageal reflux disease (265175040) Esophageal reflux disease (K21.9) Active confirmed Problem Essential hypertension (29298780) Hypertension, unspecified type (I10) Active confirmed Problem Esophageal dysphagia (78311229) Esophageal dysphagia (R13.10) Active confirmed Vital Signs Temperature 98.6 degrees Fahrenheit 06/11/2025 Blood pressure diastolic 01 mm Hg 06/11/2025 Height 63.50 in 06/11/2025 Blood pressure systolic 001 mm Hg 06/11/2025 Weight 239 lbs 06/11/2025 BMI 41.67 kg/m2 06/11/2025 Encounters Encounter Location Date Provider Diagnosis [facility] [address] [place] [phone] 06/11/2025 Valeriano Corona [facility] K22.70 ; Gastroesophageal reflux disease without esophagitis K21.9 ; Family history of colon cancer Z80.0 ; Encounter for screening for malignant neoplasm of colon Z12.11 ; Encounter for screening for malignant neoplasm of rectum Z12.12 ; Pancreatitis K85.90 and Hypertriglyceridemia E78.1 [facility] [address] [place] [phone] 10/27/2024 Valeriano Corona [facility] [address] [place] [phone] 02/24/2025 Valeriano Corona Assessments Encounter Date Diagnosis [...] Name:Valeriano Corona , 12/14/2025 01:00:00 PM, [address] [facility], [address], [place], [address], Insurance Providers Payer Name Payer Address Payer Phone Subscriber Number Group Number Insured Name Patient Relationship to Insured Coverage Start Date Coverage End Date MEDICARE OF [place] [address] [place] [address] [id number] NA SOLIMAN Self - patient is the insured [facility] [address] [place] [phone] [id number] NA SOLIMAN Self - patient is the [...] HEMA Pulmonary embolus Endometrial cancer-s/p Hysterectomy Denies AK,CVA,renal disease Hypertriglyceridemia She had negative colonoscopies in [...] of over 2000. She was transferred from [facility] to [facility] for about a week or so. Surgical History Surgery Date(Month/Year) Wrist Right knee Cholescystectomy 11/1997 Surgical minor sphincteropla sty to try to treat pancreatitis in relation to her pancreas divisum-at [facility] with Dr. Clemente Endoscopic sphincteroplasty of major papillia to try to treat pancreatitis in relation to her pancreas divisum-Dr. Aggarwal at [facility] Rt. inginual hernia Hysterectomy for endometrial cancer 08/09 0
--- OUTSIDE RECORDS SUMMARY | 2025-06-22 17:36 | XMS_ITS | Clinical Summary ---
Author Organization [facility] Address [address] [place] [address] Care Team Providers Care Steak Sauce Maker Name Role Phone Pcp, No Primary [...] day. 15 mL 5 Active pancrelipase (CREON) [address]-[address] Particles capsuleIndicatio ns:Severe acute [...] need to establish care with PCP and rhic systems safety engineer for outpatient management Assessment & Plan (11/21/2024 [...] drink = 0.6 oz pur e alcohol) [facility] Utilities Answer Date Recorded In the past 12 months has [employer], gas, oil, or water [employer] threatened to shut off services in your [...] were you homeless or living in a long-term (including now)? No 11/18/2024 Comments Unknown Sex [...] - 99 mg/dL 11/23/2024 3:05 PM EDT [facility] Comment:Fasting: <100 mg/dL, Non-Fasting: <200 mg/dL (ADA 2005) Blood Urea Nitrogen (BUN) 9 8 - 21 mg/dL 11/23/2024 3:05 PM EDT [facility] Creatinine 0.8 0.4 - 1.1 mg/dL 11/23/2024 3:05 PM EDT [facility] eGFR 79 >59 11/23/2024 3:05 PM EDT [facility] Comment:CKD-EPI (2020) in mL /min/1.73 sq meters. Sodium 136 136 - 145 mmol/L 11/23/2024 3:05 PM EDT [facility] Potassium 3.9 3.4 - 5.3 mmol/L 11/23/2024 3:05 PM EDT [facility] Chloride 101 98 - 107 mmol/L 11/23/2024 3:05 PM EDT [facility] CO2 26 22 - 33 mmol/L 11/23/2024 3:05 PM T [facility] Calcium 9.5 8.7 - 10.5 mg/dL 11/23/2024 3:05 PM [facility] Alkaline Phosphatase 70 32 - 122 U/L 11/23/2024 3:05 PM [facility] Aspartate Aminotrans (AST) 27 10 - 50 U/L 11/23/2024 3:05 PM [facility] Alanine Aminotrans (ALT) 14 10 - 50 U/L 11/23/2024 3:05 PM [facility] Bilirubin, Total 0.4 0.2 - 1.0 mg/dL 11/23/2024 3:05 PM [facility] Protein, Total 6.6 6.3 - 8.3 g/dL 11/23/2024 3:05 PM [facility] Albumin 3.5 3.4 - 4.8 g/dL 11/23/2024 3:05 PM [facility] BUN/Creatinine Ratio 11 10.0 - 25.0 Ratio 11/23/2024 3:05 PM [facility] Globulin 3.1 1.5 - 3.9 g/dL 11/23/2024 3:05 PM [facility] Albumin/Globulin Ratio 1.1 1.0 - 3.0 Ratio 11/23/2024 3:05 PM [facility] Anion Gap 9 7 - 17 11/23/2024 3:05 PM [facility] Blood Blood specimen / Unknown 11/23/2024 2:23 PM EDT 11/23/2024 2:30 PM EDT us Darrellr Aurea Koenig DO LAB BLOOD ORDERABLES Final Resul t [address] [address], from Last 3 Months or Most Recently Relevant to Health Maintenance Insurance MEDICARE PART A & B [facility] SUPPLEMENT ONLY [facility] SUPPLEMENT ONLY MEDICARE PART A & B Advance Directives * Full Code (Latest Code Status on File) Date Activated Date Inactivated Comments 11/17/2024 7:48 PM Question Answer Comments Decision Thoroughly Discussed with: Patient Care Teams Steak Sauce Maker Relationship Specialty Start Date End Date Pcp, No PCP - General General Medicine 11/18/24
--- OUTSIDE RECORDS SUMMARY | 2025-06-22 17:36 | XMS_ITS | Patient Health Record ---
Author Organization [facility] Address [address] [facility] [place] [address] Care Team Providers Care It Operations Analyst Name Role Phone Armando Holloway MD Primary Care Provider Saira Carranza Unavailable [phone] Devan Hernández Unavailable [phone] Allergies Allergen (clinical drug ingredient) Drug/Non Drug [...] Polyneuropathy due to type 2 diabetes mellitus (019205517) Type 2 diabetes mellitus with diabetic polyneuropathy (E11.42) Active confirmed Problem Polyneuropathy due to diabetes mellitus type I (929196950) Type 1 diabetes mellitus with diabetic polyneuropathy (E10.42) Active confirmed Problem Lymphedema (35677190) Lymphedema (I89.0) Active confirmed Plan Of Treatment Pending Test Test Name Order Date X ray : Foot, left 3V 12/19/2022 [id number] SKIN LESIONS, 2 TO 4 08/17/20 21 [id number] SKIN LESIONS, 2 TO 4 12/07/19 22 [id number] DYSTROPHIC NAILS ANY # [id number] DYSTROPHIC NAILS ANY # Insurance Providers Payer Name Payer Address Payer Phone Subscriber Number Group Number Insured Name Patient Relationship to Insured Coverage Start Date Coverage End Date Medicare National [employer] [address] [place] [address] [phone] [id number] ClairRachanane Self - patient is the insured [facility] [address] [place] [address] [id number] Rachana Selfne Self - patient is the [...] Reason Date(Month/Year) C pancreatitis 6 days 11/25/21 [facility] itis 5 day stay 07/2021
== END 2025-06-22 15:27 | disposition home or self-care (01) ==
LOC: HO.ENCR 14:42
PROVIDERS: PCP Internal Medicine; Visit Provider Internal Medicine Endocrinology, Diabetes & Metabolism
DX: E11.65 Type 2 diabetes mellitus with hyperglycemia (principal)
CPT/HCPCS: 99214; G2211

== ENCOUNTER → 2025-06-22 14:42 | Outpatient (BNVA) | payer MEDICARE, OTHER, SELFPAY | PROVIDERS: PCP Internal Medicine; Visit Provider Internal Medicine Endocrinology, Diabetes & Metabolism | DX: E11.65 Type 2 diabetes mellitus with hyperglycemia (principal); I25.10 Atherosclerotic heart disease of native coronary artery without angina pectoris; E11.59 Type 2 diabetes mellitus with other circulatory complications; E11.21 Type 2 diabetes mellitus with diabetic nephropathy; E11.40 Type 2 diabetes mellitus with diabetic neuropathy, unspecified; Z79.4 Long term (current) use of insulin | CPT/HCPCS: 82947; 83036; 99212 ==

== ENCOUNTER 2025-06-30 12:38 | Outpatient (AMB) | payer MEDICARE, OTHER, SELFPAY ==
--- OUTSIDE RECORDS SUMMARY | 2024-09-16 05:00 | XMS_ITS ---
Author Organization [facility] Address [address] [place] [address] Care Team Providers Care Maintenance Mechanic 2Nd Shift Name Role Phone Armando Holloway MD Primary Care Provider Unavaila Saira Hurst Unavailable [phone] Devan Hernández Unavailable [phone] REASON FOR VISIT Transfer to Different Provider Encounters Encounter Location Date Provider Diagnosis [facility] [address] [place] [address] 09/16/2024 Devan Hernández Plan Of Treatment No Information Progress Notes * Rachana SOLIMANOscarOB:1955 ( 70 yo F)Acc No.[id number]:09/16/2024 Progress Note Patient: Felecia CASTELLANOS Provider: Jane Kirkpatrick DPM :1955 A ge:69 Y S ex:Female Date:09/16/2024 Address:[address] [facility] Pcp:Armando Holloway MD Subjective: * Chief Complaints: [...] 09/16/2024 Generated for Clemencia guadalupe/Hunter/Juliana on: 1 05:28 PM EDT
--- OUTSIDE RECORDS SUMMARY | 2024-09-16 05:00 | XMS_ITS ---
Author Organization [facility] Address [address] [place] [address] Care Team Providers Care Educational Therapist Name Role Phone Armando Holloway MD Primary Care Provider Unavaila Saira Hurst Unavailable [phone] Riley Encounters Encounter Location Date Provider Diagnosis [facility] [address] [place] [address] 09/16/2024 Saira Willett Plan Of Treatment No Information Progress Notes * Rachana SOLIMANOscarOB:1955 ( 70 yo F)Acc No.[id number]:09/16/2024 Progress Note Patient: Felecia CASTELLANOS Provider: Byron Willett DPM :1955 A ge:69 Y S ex:Female Date:09/16/2024 Address:[address] [facility] Pcp:Armando Holloway MD Subjective: * Chief Complaints: [...] 0 09/16/2024 Generated for Clemencia guadalupe/Hunter/eTransmitting on: 05:28 PM EDT
--- OUTSIDE RECORDS SUMMARY | 2024-10-27 06:50 | XMS_ITS ---
Author Organization [facility] Address [address] [place] [address] Care Team Providers Care Icicle Machine Operator Name Role Phone YANIRA BURGOS Primary Care Provider Valeriano Miranda [phone] REASON FOR VISIT Patient presents today for abdominal pain Encounters Encounter Location Date Provider Diagnosis [facility] [address] [facility] [address] [place] [address] 10/27/2024 Valeriano Corona Plan Of Treatment Next Appt Details Provider Name:Valeriano Corona , 12/14/2025 01:00:00 PM, [address] [facility], [address], [place], [address], Progress Notes * CAROLEE SOLIMANNEDOB:1955 ( 70 yo F)Acc No.[id number]:10/27/2024 Progress Notes Patient: NA CASTELLANOS Provider: Sonali Corona MD :1955 A ge:69 Y S ex:Female Date:10/27/2024 Address:[address] [place], [place] [address] Pcp:YANIRA BURGOS Subjective: * Chief Complaints: * [...] 10/27/2024 Generated for Clemencia guadalupe/Hunter/Juliana on: 1 05:29 PM EDT
--- OUTSIDE RECORDS SUMMARY | 2025-02-24 09:40 | XMS_ITS ---
Author Organization [facility] Address [address] [place] [address] Care Team Providers Care Smoking Tobacco Packer Hand Name Role Phone YANIRA BURGOS Primary Care Provider Valeriano Miranda [phone] REASON FOR VISIT abdominal pain Encounters Encounter Location Date [facility] 10 [facility] [address] [place] [address] 02/24/2025 Valeriano Corona Plan Of Treatment Next Appt Details Provider Name:Valeriano Corona , 12/14/2025 01:00:00 PM, [address], [address], [place], [address], Progress Notes * JOURDAN CAROLEENEDOB:1955 ( 70 yo F)Acc No.[id number]:02/24/2025 Progress Notes Patient: NA CASTELLANOS Provider: Sonali Corona MD :1955 A ge:69 Y S ex:Female Date:02/24/2025 Address:[address] [place] [address] Pcp:YANIRA BURGOS Subjective: * Chief Complaints: * [...] 02/24/2025 Generated for Clemencia guadalupe/Hunter/Juliana on: 1 05:28 PM EDT
--- OUTSIDE RECORDS SUMMARY | 2025-05-29 05:00 | XMS_ITS ---
Author Organization [facility] Address [address] [address] Care Team Providers Care Hop Worker Name Role Phone Migration, Provider Unavailable Unavailable REASON FOR VISIT EMR-George Encounters Encounter Location Date Provider Diagnosis [facility] [address] [address] 05/29/2025 Provider Migration Plan Of Treatment No Information Progress Notes * RYAN SOLIMANOB:1955 ( 70 yo F)Acc No.[id number]:05/29/2025 Patient: Jane NA ROBLEDO :1955 A ge:70 Y S ex:Female Phone: Address:[address], [place], [address] Subjective: * Chief Complaints: * E MR-George * * Date:
--- OUTSIDE RECORDS SUMMARY | 2025-05-30 05:00 | XMS_ITS ---
Author Organization [facility] Address [address] [place] [address] Care Team Providers Care Lab Intern Name Role Phone Migration, Provider Unavailable Unavailable [...] Active Encounters Encounter Location Date Provider Diagnosis [facility] [address] [place] [address] 05/30/2025 Provider Migration Plan Of Treatment No Information Progress Notes * JOURDANCAROLEENEDOB:1955 ( 70 yo F)Acc No.[id number]:05/30/2025 Patient: NA CASTELLANOS :1955 A ge:70 Y S ex:Female Phone: Address:[address] [place] [address], [place], [address] Subjective: * Chief Complaints: * E MR-George [...] , Notes to Pharmacist: *[facility]*Taking Prevacid oral , Notes to Pharmacist: *Pick strength-form from Medispan for eRX*Taking Tricor oral , Notes to Pharmacist: *Pick strength-form from Medispan for eRX*Taking Insulin Lispro subcutaneous , Notes to Pharmacist: *[facility]*Taking amlodipine oral , Notes to Pharmacist: *Reorder from Medispan for eRx and Interaction Alerts*Taking Lantus U-100 Insulin subcutaneous , Notes to Pharmacist: *[facility] and Interaction Alerts* * Allergies: L atex: AllergyMorphine: AllergyNexIUM: AllergyPenicillins: Allergyshellfish derived: Allergy * * Date:
[2025-06-30 12:42] VITALS: BMI 44.8
--- NOTE | 2025-06-30 12:42 | A.OFFVIS_ITS ---
VS Expanded 06/30/25 12:42 07/06/25 21:12 Height 5 ft 2 in 5 ft 2 in Weight 244 lb 14.937 oz 245 lb BMI 44.8 44.8 Intake Visit Reasons: DMT2 Allergies gentamicin Allergy (Severe, Verified 06/22/25 14:56) Difficulty Breathing Iodinated Contrast Media Allergy (Severe, Verified 06/22/25 14:56) Difficulty Breathing, nausea and vomiting latex (LATEX) Allergy (Severe, Verified 06/22/25 14:56) Anaphylaxis morphine Allergy (Severe, Verified 06/22/25 14:56) Anaphylaxis Penicillins Allergy (Severe, Verified 06/22/25 14:56) stopped breathing as an infant shellfish derived (SHELLFISH DERIVED) Allergy (Severe, Verified 06/22/25 14:56) Difficulty Breathing, swelling vancomycin Allergy (Severe, Verified 06/22/25 14:56) Difficulty Breathing azithromycin Allergy (Unknown, Verified 06/22/25 14:56) Unknown erythromycin base Allergy (Unknown, Verified 06/22/25 14:56) Unknown esomeprazole Allergy (Unknown, Verified 06/22/25 14:56) Unknown pantoprazole Adverse Reaction (Mild, Verified 06/22/25 14:56) Nausea and Vomiting Nutrition Presentation Details: Pt presents for MNT for T2DM Pt has allergic reaction to shellfish Pt reports having 2-3 meals/day and unhealthy snack choices Beverages 16-24 oz/d (water, juice) food frequency fruits: 0-1/d ve-3 /wk dairy: >5/d empty tiburcio foods >2/d physical activity: ADL Etoh/smoking:denies carb counting: no BS Monitoring Most Recent Diabetes Results: Creatinine, (0.5-1.4) 0.79 mg/dL 06/08/25 BUN, (9-16) 14 mg/dL 06/08/25 Sodium, (135-145) 142 mmol/L 06/08/25 Potassium, (3.3-5.1) 3.7 mmol/L 06/08/25 Chloride, (96-108) 106 mmol/L 06/08/25 Carbon Dioxide, (22-29) 28 mmol/L 06/08/25 KNO-Eibueai-Ae.Jeor Equation Height: 5 ft 2 in Weight: 245 lb Resting Metabolic Rate: 1579.20 Calculated Activity Level: Sedentary Calories Needed to Maintain Weight: 1895.04 Diagnosis Nutrition problem #1: excessive energy intake As related to (etiology) #1: diagnosis As evidenced by (sign/symptom) #1: knowledge deficit of diet [facility] Medical History (Updated 03/17/25 @ 15:53 by RODNEY Johnston) Venous stasis dermatitis Pancreatitis Chronic pancreatitis Hypertriglyceridemia Asthma Endometrial cancer Barretts esophagus GERD (gastroesophageal reflux disease) Pancreatic divisum CAD (coronary artery disease) USP (current) use of insulin Diabetes type 2, uncontrolled Cervical cancer Other and unspecified hyperlipidemia Essential hypertension Vitamin D deficiency T2DM (type 2 diabetes mellitus) HLD (hyperlipidemia) HTN (hypertension) Accelerated essential hypertension Embolism Surgical History History of esophagogastroduodenoscopy (EGD) Hx of colonoscopy (~07/03/23) Hx of removal of cyst Hx of hernia repair Hx of cholecystectomy Hx of endoscopy Hx of hysterectomy Family History Father Diabetes Mother Diabetes Social History Household Members: Spouse Housing: House Do you presently have visiting nurse or other home services: No Alcohol intake: never Comment: sleeping Patient Tobacco Use Status: Former Tobacco user e-Cigarette/Vaping Use: Former Use service: No Current occupational status: employed Current occupation: [employer] Cognitive needs: No Hearing needs: No Vision needs: Yes (rx glasses) Assessment & Plan Assessment & Plan (1) Diabetes type 2, uncontrolled: Code(s): E11.65 - Type 2 diabetes mellitus with hyperglycemia Category: Medical Qualifiers: Glycemic state: with hyperglycemia Qualified Code(s): E11.65 - Type 2 diabetes mellitus with hyperglycemia Plan: current wt:111 kg ( 07/03 ) est kcal needs as per MSJ: 1900 est protein needs as per 1 g/kg BW: 110 est fluid needs as per 30 ml/kg BW: 3300 Recommended fiber > 12 g /day and gradually increase up to 25-28 g /day or as tolerated REc sodium intake: <2000 mg/d Nutrition topics discussed : Reviewed (R), Pt verbalized understanding (V) , not applicable (N/A) R, V, : Healthy Plate Method Concept: R, : Carbohydrates: food sources of carbohydrates, relationship of carbohydrates to blood glucose, fatty liver GI health. Recommended total amount of carbohydrates per meals and snack. Differences between simple carbohydrates and complex carbohydrates R, V: Lean protein foods including vegan , vegetarian sources of protein. Benefits of protein (including but not limited to healing, nutritional value , benefits in weight loss, glucose control R, : Fats : Source of fats, benefits of fats. Difference between saturated and unsaturated fats. Saturated fats and its contribution to inflammation R, V, N/A: Fiber: food sources and role of fiber in the diet (including but not limited to its role as a prebiotic, benefits in constipation, role in IBS , role in glucose control and cholesterol level) R, : Hydration: role of hydration and prevention of dehydration or over hydration. Foods and water content. R, V, N/A: Vitamins and Minerals in foods and supplements R, V, N/A: Interpreting food labels, including serving size, macronutrients, vitamins, minerals, allergens, ingredient list , % daily value Patient Instructions: Work on reducing sugars and snack to 2 a day consisting of 20 g carb or less and 8-10 g protein (yogurt, fruit and cheese stick - see list of options Practice mindful eating strategies Coding Level of Care Code Nutr Indiv Intake (87489) Diagnoses Uncontrolled type 2 diabetes mellitus with hyperglycemia E11.65 Glycemic state: with hyperglycemia Time Spent (min) 30
--- OUTSIDE RECORDS SUMMARY | 2025-06-30 17:28 | XMS_ITS | Patient Health Record ---
[facility] Address [address] [place] [address] Care Team Providers Care Time Recorder Name Role Phone Armando Holloway MD Primary Care Provider Saira Carranza Unavailable [phone] Devan Hernández Unavailable [phone] Allergies Allergen (clinical drug ingredient) Drug/Non Drug [...] Polyneuropathy due to type 2 diabetes mellitus (583582727) Type 2 diabetes mellitus with diabetic polyneuropathy (E11.42) Active confirmed Problem Polyneuropathy due to diabetes mellitus type I (654136549) Type 1 diabetes mellitus with diabetic polyneuropathy (E10.42) Active confirmed Problem Lymphedema (33867490) Lymphedema (I89.0) Active confirmed Plan Of Treatment Pending Test Test Name Order Date X ray : Foot, left 3V 12/19/2022 [id number] SKIN LESIONS, 2 TO 4 08/17/20 21 [id number] SKIN LESIONS, 2 TO 4 12/07/19 22 [id number] DYSTROPHIC NAILS ANY # [id number] DYSTROPHIC NAILS ANY # Insurance Providers Payer Name Payer Address Payer Phone Subscriber Number Group Number Insured Name Patient Relationship to Insured Coverage Start Date Coverage End Date Medicare National [employer] [address] [place] [address] [phone] [id number] ClairRachanane Self - patient is the insured [facility] [address] [place] [address] [id number] Rachana Selfne Self - patient is the [...]
--- OUTSIDE RECORDS SUMMARY | 2025-06-30 17:29 | XMS_ITS | Patient Health Record ---
Author Organization [facility] Address [address] [address] Care Team Providers Care Child'S Nurse Name Role Phone Migration, Provider Unavailable Unavailable Reason For Referral No Information Medications Medication SIG (Take, Route, Frequency, Duration) Notes Start Date End Date Status Neurontin oral *Pick strength-form from Medispan for [...] strength-form from Medispan for eRX* 07/27/2022 Active Lantus U-100 Insulin subcutaneous *Reorder fr om Medispan for eRx and Interaction Alerts* Active Baclofen oral *Pick strength-form from Medispan for eRX* 07/27/2022 Active amlodipine oral *Reorder from Medispan for eRx and Interaction Alerts* Active Albuterol Sulfate *Pick strength-form from Medispan for eRX* Active Insulin Lispro subcutaneous *Pick strength-form from Medispan for eRX* Active Hydralazine *Reorder from Medispan for eRx and Interaction Alerts* Active Tricor oral *Pick strength-form from Medispan for eRX* Active Oxycodone *Reorder from Medispan for eRx and Interaction Alerts* Active Prevacid oral *Pick strength-form from Medispan for eRX* Active Encounters Encounter Location Date Provider Diagnosis [facility] [address] [place] [address] 05/29/2025 Provider Migration [facility] [address] [place] [address] 05/30/2025 Provider Migration Plan Of Treatment No Information
--- OUTSIDE RECORDS SUMMARY | 2025-06-30 17:29 | XMS_ITS | Clinical Summary ---
Author Organization [facility] Address [address] [place] [address] Care Team Providers Care Syrup Maker Name Role Phone Pcp, No Primary [...] day. 15 mL 5 Active pancrelipase (CREON) [address]-[address] Particles capsuleIndicatio ns:Severe acute [...] need to establish care with PCP and rubber worker for outpatient management Assessment & Plan [...] drink = 0.6 oz pur e alcohol) [facility] Utilities Answer Date Recorded In the past 12 months has [employer], gas, oil, or water [employer] threatened to shut off services in your [...] any time in the past 12 m [facility], were you homeless or living in a [place] facility (including now)? No 11/18/2024 Comments Unknown Sex [...] - PCV) 1972 Mammogram 1993 Colonoscopy 1998 RSV Vaccine 50 years and old er and Patients (1 - Risk 50-74 years 1-dose series) 2003 Zoster (Shingles) Vaccine (1 of 2) 2003 DXA Bone Density (Females,Ag es 65 and older) 2018 Influenza Vaccine 04/09/2025 COVID-19 Vaccine ( - 2023-2 5 season) 2025 Creatinine with [...] 11/23/2024 3:05 PM EDT [facility] Comment:Fasting: <100 mg/dL, Non-Fasting: <200 mg/dL (ADA 2005) Blood Urea Nitrogen (BUN) 9 8 - 21 mg/dL 11/23/2024 3:05 PM EDT [facility] Creatinine 0.8 0.4 - 1.1 mg/dL 11/23/2024 3:05 PM EDT [facility] eGFR 79 >59 11/23/2024 3:05 PM EDT [facility] Comment:CKD-EPI (2020) in mL /min/1.73 sq meters. Sodium 136 136 - 145 mmol/L 11/23/2024 3:05 PM EDT [facility] Potassium 3.9 3.4 - 5.3 mmol/L 11/23/2024 3:05 PM EDT [facility] Chloride 101 98 - 107 mmol/L 11/23/2024 3:05 PM EDT [facility] CO2 26 22 - 33 mmol/L 11/23/2024 3:05 PM T [facility] Calcium 9.5 8.7 - 10.5 mg/dL 11/23/2024 3:05 PM [facility] Alkaline Phosphatase 70 32 - 122 U/L 11/23/2024 3:05 PM [facility] Aspartate Aminotrans (AST) 27 10 - 50 U/L 11/23/2024 3:05 PM [facility] Alanine Aminotrans (ALT) 14 10 - 50 U/L 11/23/2024 3:05 PM [facility] Bilirubin, Total 0.4 0.2 - 1.0 mg/dL 11/23/2024 3:05 PM [facility] Protein, Total 6.6 6.3 - 8.3 g/dL 11/23/2024 3:05 PM [facility] Albumin 3.5 3.4 - 4.8 g/dL 11/23/2024 3:05 PM [facility] BUN/Creatinine Ratio 11 10.0 - 25.0 Ratio 11/23/2024 3:05 PM [facility] Globulin 3.1 1.5 - 3.9 g/dL 11/23/2024 3:05 PM [facility] Albumin/Globulin Ratio 1.1 1.0 - 3.0 Ratio 11/23/2024 3:05 PM [facility] Anion Gap 9 7 - 17 11/23/2024 3:05 PM [facility] Blood Blood specimen / Unknown 11/23/2024 2:23 PM EDT 11/23/2024 2:30 PM EDT us Darrellr Aurea Koenig DO LAB BLOOD ORDERABLES Final Resul t [address] [address], from Last 3 Months or Most Recently Relevant to Health Maintenance Insurance MEDICARE PART A & B [facility] SUPPLEMENT ONLY [employer] SUPP[employer]MENT ONLY MEDICARE PART A & B Advance Directives * Full Code (Latest Code Status on File) Date Activated Date Inactivated Comments 11/17/2024 7:48 PM Question Answer Comments Decision Thoroughly Discussed with: Patient Care Teams Syrup Maker Relationship Specialty Start Date End Date Pcp, No PCP - General General Medicine 11/18/24
--- OUTSIDE RECORDS SUMMARY | 2025-06-30 17:30 | XMS_ITS | Patient Health Record ---
Author Organization [facility] Address [address] [place] [address] Care Team Providers Care Flux Tube Attendant Name Role Phone YANIRA BURGOS Primary Care Provider Valeriano Miranda [phone] Allergies Allergen (clinical drug ingredient) Drug/Non Drug [...] Problem Screening for malignant neoplasm of colon (351186878) Encounter for screening for malignant neoplasm of colon (Z12.11) Active confirmed Problem Diverticular disease of colon (966044862) Diverticulosis of large intestine without perforation or abscess without bleeding (K57.30) Active confirmed Problem Chronic pancreatitis (932607028) Other chronic pancreatitis (K86.1) Active confirmed Problem Screening for malignant neoplasm of rectum (208531309) Encounter for screening for malignant neoplasm of rectum (Z12.12) Active confirmed Problem Gastroesophageal reflux disease without esophagitis (315213067) Gastroesophageal reflux disease without esophagitis (K21.9) Active confirmed Problem Ro's esophagus (103406227) Barretts esophagus without dysplasia (K22.70) Active confirmed Problem Gastroesophageal reflux disease (316842924) Gastroesophageal reflux disease, esophagitis presence not specified (K21.9) Active confirmed Problem Family History of Cancer of Colon (Situation) (916549135) Family history of colon cancer (Z80.0) Active confirmed Problem Constipation (71636308) Constipation, unspecified constipation type (K59.00) Active confirmed Problem Gastritis (1528633) Gastritis (K29.70) Active c onfirmed Problem Ro esophagus (858630570) 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) Active confirmed Problem Hypertriglyceridemia (694613682) Hypertriglyceridemia (E78.1) Active confirmed Problem Pancreatitis (33156257) Pancreatitis (K85.90) Active confirmed Problem Gastroesophageal reflux disease (748688371) Esophageal reflux disease (K21.9) Active confirmed Problem Essential hypertension (94862597) Hypertension, unspecified type (I10) Active confirmed Problem Esophageal dysphagia (49099808) Esophageal dysphagia (R13.10) Active confirmed Vital Signs Temperature 98.6 degrees Fahrenheit 06/11/2025 Blood pressure diastolic 01 mm Hg 06/11/2025 Height 63.50 in 06/11/2025 Blood pressure systolic 001 mm Hg 06/11/2025 Weight 239 lbs 06/11/2025 BMI 41.67 kg/m2 06/11/2025 Encounters Encounter Location Date Provider Diagnosis [facility] [address] [place] [phone] 06/11/2025 Valeriano Corona Barretts esophagus w ithout dysplasia K22.70 ; Pancreatitis K85.90 ; Gastroesophageal reflux disease without esophagitis K21.9 ; Family history of colon cancer Z80.0 ; Encounter for screening for malignant neoplasm of colon Z12.11 ; Encounter for screening for malignant neoplasm of rectum Z12.12 and Hypertriglyceridemia E78.1 [facility] [address] [place] [phone] 10/27/2024 Valeriano Corona [facility] [address] [place] [phone] 02/24/2025 Valeriano Corona Assessments Encounter Date Diagnosis (ICD Code) Assessment Notes Treatment Notes Treatment Clinical Notes Section Notes 06/11/2025 Barretts esophagus without dysplasia (ICD-10 - K22.70) Overall, Na appears well from a clinical standpoint. She has had longstanding abdominal pain that is felt to be related to a component of chronic pancreatitis due to all of her [...] She has had longstanding abdominal pain that is felt to be related to a component of chronic pancreatitis due to all of her [...] She has had longstanding abdominal pain that is felt to be related to a component of chronic pancreatitis due to all of her [...] She has had longstanding abdominal pain that is felt to be related to a component of chronic pancreatitis due to all of her [...] She has had longstanding abdominal pain that is felt to be related to a component of chronic pancreatitis due to all of her [...] She has had longstanding abdominal pain that is felt to be related to a component of chronic pancreatitis due to all of her [...] She has had longstanding abdominal pain that is felt to be related to a component of chronic pancreatitis due to all of her [...] Name:Valeriano Corona , 12/14/2025 01:00:00 PM, [address], [address], [place], [address], Insurance Providers Payer Name Payer Address Payer Phone Subscriber Number Group Number Insured Name Patient Relationship to Insured Coverage Start Date Coverage End Date MEDICARE OF [place] [address] [place] [address] [phone] [id number] NA SOLIMAN Self - patient is the insured [facility] [address] [place] [address] [id number] NA SOLIMAN Self - patient is the [...] HEMA Pulmonary embolus Endometrial cancer-s/p Hysterectomy Denies VA,CVA,renal disease Hypertriglyceridemia She had negative colonoscopies in [...] of over 2000. She was transferred from [facility] to [facility] for about a week or so. Surgical History Surgery Date(Month/Year) Wrist Right knee Cholescystectomy 11/1997 Surgical minor sphincteropla sty to try to treat pancreatitis in relation to her pancreas divisum-at [facility] with [place]. Clemente Endoscopic sphincteroplasty of major papillia to try to treat pancreatitis in relation to her pancreas divisum-Dr. Aggarwal at [facility] Rt. inginual hernia Hysterectomy for endometrial cancer 08/09 0
[2025-07-06 21:12] VITALS: BMI 44.8
== END 2025-06-30 13:23 | disposition home or self-care (01) ==
LOC: HO.ENCR 12:39
PROVIDERS: PCP Internal Medicine; Visit Provider Dietitian, Registered
DX: E11.65 Type 2 diabetes mellitus with hyperglycemia (principal)

== ENCOUNTER → 2025-06-30 12:38 | Outpatient (BNVA) | payer MEDICARE, OTHER, SELFPAY | PROVIDERS: PCP Internal Medicine; Visit Provider Dietitian, Registered | DX: E11.65 Type 2 diabetes mellitus with hyperglycemia (principal); Z71.3 Dietary counseling and surveillance | CPT/HCPCS: 97802 ==

== ENCOUNTER 2025-07-21 13:20 | Outpatient (REF) | payer MEDICARE, OTHER, SELFPAY ==
[2025-07-21 14:56] LABS: Hematocrit 42.1 % (37.0-47.0); Hemoglobin 13.5 g/dl (12.0-16.0); Mean Corpuscular HGB Conc 32.1 g/dl (31.0-35.0); Mean Corpuscular Hemoglobin 28.6 pg (27.0-33.0); Mean Corpuscular Volume 89.2 fL (80.0-98.0); NRBC Abs Auto 0.000 X10*3/uL (0.0-0.012); NRBC Pct Auto 0.0 /100WBC (0.0-0.2); Platelet Count 290 X10*3/uL (160-400); Red Blood Count 4.72 X10*6/uL (4.20-5.50); White Blood Count 6.4 X10*3/uL (4.8-10.8)
[2025-07-21 15:53] LABS: Alanine Aminotransferase 32 U/L (0-31); Albumin Level 3.7 g/dL (3.5-5.0); Alkaline Phosphatase 119 U/L (39-117); Anion Gap 15 (12-20); Aspartate Amino Transferase 28 U/L (5-31); Blood Urea Nitrogen 15 mg/dL (9-16); Calcium 9.6 mg/dL (8.4-10.2); Carbon Dioxide 25 mmol/L (22-29); Chloride 101 mmol/L (96-108); Cholesterol 379 mg/dL (<200); Estimated Glomerular Filt Rate > 60; HDL Cholesterol 39 mg/dL (>40); Potassium 4.1 mmol/L (3.3-5.1); Sodium 137 mmol/L (135-145); Total Protein 7.3 g/dL (6.5-8.0); Triglycerides 1551 mg/dL (<150)
== END 2025-07-21 13:21 | disposition home or self-care (01) ==
LOC: HO.LAB 13:20
PROVIDERS: PCP Physician Assistant Medical; Visit Provider Physician Assistant Medical
DX: I11.0 Hypertensive heart disease with heart failure (principal); I50.32 Chronic diastolic (congestive) heart failure; E78.2 Mixed hyperlipidemia; G47.00 Insomnia, unspecified; E11.21 Type 2 diabetes mellitus with diabetic nephropathy; R26.89 Other abnormalities of gait and mobility; J45.40 Moderate persistent asthma, uncomplicated; F51.04 Psychophysiologic insomnia; K58.2 Mixed irritable bowel syndrome; K86.1 Other chronic pancreatitis; E66.01 Morbid (severe) obesity due to excess calories; R29.6 Repeated falls; Z68.41 Body mass index [BMI] 40.0-44.9, adult; Z79.4 Long term (current) use of insulin; Z79.891 Long term (current) use of opiate analgesic; Z79.899 Other long term (current) drug therapy
CPT/HCPCS: 36415; 80053; 80061; 84443; 85027; 96127

== ENCOUNTER 2025-08-23 15:22 | Outpatient (AMB) | payer MEDICARE, OTHER, SELFPAY ==
--- OUTSIDE RECORDS SUMMARY | 2024-09-16 04:00 | XMS_ITS ---
Author Organization [facility] Address [address] [place] [address] Care Team Providers Care Paving Bed Maker Name Role Phone Armando Holloway MD Primary Care Provider Unavaila Saira Hurst Unavailable [phone] Devan Hernández Unavailable [phone] REASON FOR VISIT Transfer to Different Provider Encounters Encounter Location Date Provider Diagnosis [facility] [address] [place] [address] 09/16/2024 Devan Hernández Plan Of Treatment No Information Progress Notes * Rachana SOLIMANOscarOB:1955 ( 70 yo F)Acc No.[id number]:09/16/2024 Progress Note Patient: Felecia CASTELLANOS Provider: Jane Kirkpatrick DPM :1955 A ge:69 Y S ex:Female Date:09/16/2024 Address:[address] [facility] Pcp:Armando Holloway MD Subjective: * Chief Complaints: * 1 . Transfer to Different Provider. * Medical History: Objective: * Vitals: Assessment: Plan: * Treatment: * Images: * The named appointment provid er may or may not be the originator of this progress note, and it is not deemed complete until electronically signed by the appointment provider. Sign off status: Pending * Provider: Jane Kirkpatrick DPM Date: 0 09/16/2024 Generated for Clemencia guadalupe/Hunter/Juliana on: 1 10/24/2024 09:50 PM EST
--- OUTSIDE RECORDS SUMMARY | 2024-09-16 04:00 | XMS_ITS ---
Author Organization [facility] Address [address] [place] [address] Care Team Providers Care Numerical Control Machine Tool Operator Name Role Phone Armando Holloway MD Primary Care Provider Unavaila Saira Hurst Unavailable [phone] Riley Encounters Encounter Location Date Provider Diagnosis [facility] [address] [place] [address] 09/16/2024 Saira Willett Plan Of Treatment No Information Progress Notes * Rachana SOLIMANOscarOB:1955 ( 70 yo F)Acc No.[id number]:09/16/2024 Progress Note Patient: Felecia CASTELLANOS Provider: Byron Willett DPM :1955 A ge:69 Y S ex:Female Date:09/16/2024 Address:[address] [facility] Pcp:Armando Holloway MD Subjective: * Chief Complaints: * [address] Riley. * Medical History: Objective: * Vitals: Assessment: Plan: * Treatment: * Images: * The named appointment provid er may or may not be the originator of this progress note, and it is not deemed complete until electronically signed by the appointment provider. Sign off status: Pending * Provider: Byron Willett DPM Date: 0 09/16/2024 Generated for Clemencia guadalupe/Hunter/eTransmitting on: 1 10/24/2024 09:50 PM EST
--- OUTSIDE RECORDS SUMMARY | 2024-10-27 05:50 | XMS_ITS ---
Author Organization [facility] Address [address] [place] [address] Care Team Providers Care Rn Transport Name Role Phone YANIRA BURGOS Primary Care Provider Valeriano Miranda [phone] REASON FOR VISIT Patient presents today for abdominal pain Encounters Encounter Location Date Provider Diagnosis [facility] [address] [facility] [address] [place] [address] 10/27/2024 Valeriano Corona Plan Of Treatment Next Appt Details Provider Name:Valeriano Corona , 12/14/2025 01:00:00 PM, [address] [facility], [address], [place], [address], Progress Notes * CAROLEE SOLIMANNEDOB:1955 ( 70 yo F)Acc No.[id number]:10/27/2024 Progress Notes Patient: NA CASTELLANOS Provider: Sonali Corona MD :1955 A ge:69 Y S ex:Female Date:10/27/2024 Address:[address] [place], [place] [address] Pcp:YANIRA BURGOS Subjective: * Chief Complaints: * P atient presents today for abdominal pain Billing Information: * Procedure Codes: * The named appointment provid er may or may not be the originator of this progress note, and it is not deemed complete until electronically signed by the appointment provider. Sign off status: Pending * Provider: Sonali Corona MD Date: 0 10/27/2024 Generated for Clemencia guadalupe/Hunter/Juliana on: 1 10/24/2024 09:51 PM EST
--- OUTSIDE RECORDS SUMMARY | 2025-02-24 08:40 | XMS_ITS ---
Author Organization [facility] Address [address] [place] [address] Care Team Providers Care Clip On Sunglasses Assembler Name Role Phone YANIRA BURGOS Primary Care Provider Valeriano Miranda [phone] REASON FOR VISIT abdominal pain Encounters Encounter Location Date Provider Diagnosis [facility] 10 [facility] [address] [place] [address] 02/24/2025 Valeriano Corona Plan Of Treatment Next Appt Details Provider Name:Valeriano Corona , 12/14/2025 01:00:00 PM, [address], [address], [place], [address], Progress Notes * JOURDAN CAROLEENEDOB:1955 ( 70 yo F)Acc No.[id number]:02/24/2025 Progress Notes Patient: AN CASTELLANOS Provider: Sonali Corona MD :1955 A ge:69 Y S ex:Female Date:02/24/2025 Address:[address] [place], [place] [id number] Pcp:YANIRA BURGOS Subjective: * Chief Complaints: * A bdominal pain Billing Information: * Procedure Codes: * The named appointment provid er may or may not be the originator of this progress note, and it is not deemed complete until electronically signed by the appointment provider. Sign off status: Pending * Provider: Sonali Corona MD Date: 0 02/24/2025 Generated for Clemencia guadalupe/Hunter/Juliana on: 1 10/24/2024 09:50 PM EST
--- OUTSIDE RECORDS SUMMARY | 2025-05-29 04:00 | XMS_ITS ---
Author Organization [facility] Address [address] [address] Care Team Providers Care Barrel Driller Name Role Phone Migration, Provider Unavailable Unavailable REASON FOR VISIT EMR-George Encounters Encounter Location Date Provider Diagnosis [facility] [address] [address] 05/29/2025 Provider Migration Plan Of Treatment No Information Progress Notes * RYAN SOLIMANOB:1955 ( 70 yo F)Acc No.[id number]:05/29/2025 Patient: Jane NA ROBLEDO :1955 A ge:70 Y S ex:Female Phone: Address:[address], [place], [address] Subjective: * Chief Complaints: * E MR-George * * Date:
--- OUTSIDE RECORDS SUMMARY | 2025-05-30 04:00 | XMS_ITS ---
Author Organization [facility] Address [address] [place] [address] Care Team Providers Care Refiner Operator Name Role Phone Migration, Provider Unavailable Unavailable Allergies Allergen (clinical drug ingredient) Drug/Non Drug Allergy documented on EMR Reaction Allergy Type Onset Date Status Shellfish (FN) shellfish derived (uncoded) Unknown Allergy Active esomeprazole NexIUM Unknown Drug Allergy Acti ve Latex Latex Unknown Allergy Active morphine Morphine Unknown Drug Allergy Active Substance with penicillin structure and antibacterial mechanism of action (substance) Penicillins Unknown Drug Allergy Active REASON FOR VISIT EMR-George Medications Medication SIG (Take, Route, Frequency, Duration) Notes Start Date End Date Status Lantus U-100 Insulin subcutaneous *Reorder fr om Medispan for eRx and Interaction Alerts* Active amlodipine oral *Reorder from Med[facility]pan for eRx and Interaction Alerts* Active Insulin Lispro subcutaneous *Pick strength-form from Med[employer]pan for eRX* Active Tricor oral *Pick strength-form from Med[employer]pan for eRX* Active Prevacid oral *Pick strength-form from Medispan for eRX* Active Neurontin oral *Pick strength-form from Medispan for eRX* Active Methocarbamol oral *Pick strength-form from Med[facility]pan for eRX* 08/03/2022 Active Lopressor *Pick strength-form from Med[facility]pan for eRX* Active Lipitor oral *Pick strength-form from Med[facility]pan for eRX* Active Furosemide *Pick strength-form from Med[facility]pan for eRX* Active Enalapril Maleate oral *Pick strength-form from Med[facility]pan for eRX* Active Diclofenac Sodium oral *Pick strength-form from Med[employer]pan for eRX* 07/27/2022 Active Baclofen oral *Pick strength-form from Med[facility]pan for eRX* 07/27/2022 Active Albuterol Sulfate *Pick strength-form from Medispan for eRX* Active Hydralazine *Reorder from Medispan for eRx and Interaction Alerts* Active Oxycodone *Reorder from Medispan for eRx and Interaction Alerts* Active Encounters Encounter Location Date Provider Diagnosis [facility] [address] [place] [phone] 05/30/2025 Provider Migration Plan Of Treatment No Information Progress Notes * JOURDANCAROLEENEDOB:1955 ( 70 yo F)Acc No.[id number]:05/30/2025 Patient: NA CASTELLANOS :1955 A ge:70 Y S ex:Female Phone: Address:[address] [place] [address], [place], [address] Subjective: * Chief Complaints: * E MR-George * Medications: T akingOxycodone , Notes to Pharmacist: *Reorder from Medispan for eRx and Interaction Alerts*Hydralazine , Notes to Pharmacist: *Reorder from Medispan for eRx and Interaction Alerts*Albuterol Sulfate , Notes to Pharmacist: *Pick strength-form from Medispan for eRX*Baclofen oral , Notes to Pharmacist: *Pick strength-form from Medispan for eRX*Diclofenac Sodium oral , Notes to Pharmacist: *Pick strength- form from Medispan for eRX*Enalapril Maleate oral , Notes to Pharmacist: *Pick strength-form from Medispan for eRX*Furosemide , Notes to Pharmacist: *Pick strength-form from Medispan for eRX*Lipitor oral , Notes to Pharmacist: *Pick strength-form from Medispan for eRX*Lopressor , Notes to Pharmacist: *Pick strength-form from Medispan for eRX*Methocarbamol oral , Notes to Pharmacist: *Pick strength-form from Medispan for eRX*Neurontin oral , Notes to Pharmacist: *Pick strength-form from Medispan for eRX*Prevacid oral , Notes to Pharmacist: *Pick strength-form from Medispan for eRX*Tricor oral , Notes to Pharmacist: *Pick strength-form from Medispan for eRX*Insulin Lispro subcutaneous , Notes to Pharmacist: *Pick strength-form from Medispan for eRX*amlodipine oral , Notes to Pharmacist: *Reorder from Medispan for eRx and Interaction Alerts*Lantus U-100 Insulin subcutaneous , Notes to Pharmacist: *Reorder from Medispan for eRx and Interaction Alerts*Taking Oxycodone , Notes to Pharmacist: *Reorder from Medispan for eRx and Interaction Alerts*Taking Hydralazine , Notes to Pharmacist: *Reorder from Medispan for eRx and Interaction Alerts*Taking Albuterol Sulfate , Notes to Pharmacist: *Pick strength-form from Medispan for eRX*Taking Baclofen oral , Notes to Pharmacist: *Pick strength-form from Medispan for eRX*Taking Diclofenac Sodium oral , Notes to Pharmacist: *Pick strength-form from Medispan for eRX*Taking Enalapril Maleate oral , Notes to Pharmacist: *Pick strength-form from Medispan for eRX*Taking Furosemide , Notes to Pharmacist: *Pick strength-form from Medispan for eRX*Taking Lipitor oral , Notes to Pharmacist: *Pick strength-form from Medispan for eRX*Taking Lopressor , Notes to Pharmacist: *Pick strength-form from Medispan for eRX*Taking Methocarbamol oral , Notes to Pharmacist: *Pick strength-form from Medispan for eRX*Taking Neurontin oral , Notes to Pharmacist: *[facility]*Taking Prevacid oral , Notes to Pharmacist: *Pick strength-form from Medispan for eRX*Taking Tricor oral , Notes to Pharmacist: *Pick strength-form from Medispan for eRX*Taking Insulin Lispro subcutaneous , Notes to Pharmacist: *[facility]*Taking amlodipine oral , Notes to Pharmacist: *Reorder from Medispan for eRx and Interaction Alerts*Taking Lantus U-100 Insulin subcutaneous , Notes to Pharmacist: *[facility] Interaction [facility]* * Allergies: L atex: AllergyMorphine: AllergyNexIUM: AllergyPenicillins: Allergyshellfish derived: Allergy * * Date:
--- NOTE | 2025-08-23 15:29 | A.OFFVIS_ITS ---
Vital Signs 08/23/25 15:30 Height 5 ft 1.82 in Weight 242 lb 15.19 oz BMI 44.7 BP 160/62 H Blood Pressure Location Rt brachial Position Sitting Pulse 73 Pulse Source Pulse Oximeter Intake Visit Reasons: 2023 patient - f/u per PCP General Scrap Worker Required: No Director Of Social Media Marketing: Director Of Social Media Marketing Present Allergies gentamicin Allergy (Severe, Verified 08/23/25 15:33) Difficulty Breathing Iodinated Contrast Media Allergy (Severe, Verified 08/23/25 15:33) Difficulty Breathing, nausea and vomiting latex (LATEX) Allergy (Severe, Verified 08/23/25 15:33) Anaphylaxis morphine Allergy (Severe, Verified 08/23/25 15:33) Anaphylaxis Penicillins Allergy (Severe, Verified 08/23/25 15:33) stopped breathing as an shellfish derived (SHELLFISH DERIVED) Allergy (Severe, Verified 08/23/25 15:33) Difficulty Breathing, swelling vancomycin Allergy (Severe, Verified 08/23/25 15:33) Difficulty Breathing azithromycin Allergy (Unknown, Verified 08/23/25 15:33) Unknown erythromycin base Allergy (Unknown, Verified 08/23/25 15:33) Unknown esomeprazole Allergy (Unknown, Verified 08/23/25 15:33) Unknown pantoprazole Adverse Reaction (Mild, Verified 08/23/25 15:33) Nausea and Vomiting Medication List - Last Reconciled 08/23/25 by MEREDITH Perez albuterol sulfate 90 mcg/actuation 2 inhalations inhalation Q4-6H atorvastatin (Lipitor) 80 mg PO BEDTIME blood-glucose sensor (FreeStyle Bettie 3 Plus Sensor device) As directed change every 15 days enalapril maleate 20 mg PO BID fenofibrate nanocrystallized 145 mg PO DAILY gabapentin 600 mg PO BEDTIME hydralazine Take two in the am and one in pm orally; dosage adjustment insulin glargine-yfgn (Semglee (insulin glargine-yfgn) Pen) 40 units (0.4 mL) subcut DAILY lansoprazole 30 mg PO BID melatonin 10 mg PO BEDTIME PRN metoprolol tartrate 200 mg PO BEDTIME multivitamin 1 tab PO DAILY oxycodone 10 mg PO BID PRN pen needle, diabetic As directed torsemide 40 mg PO Q OTHER DAY HPI HPI 2023 patient - f/u per PCP: Details: Felecia is a 70-year-old female past medical history of hypertension, hyperlipidemia, diabetes, morbid obesity, mild aortic stenosis, chronic heart failure with preserved EF who presents for follow-up. Today she reports that she continues to have chronic shortness of breath with physical activity. Her breathing is comfortable at rest. She is not sleeping well at night. She will get a pain in her left upper chest that can occur at rest or with activity. This feeling has occurred for many years and she does not feel the quality of the symptom is changing. No palpitations, lightheadedness, presyncope, syncope. She has fallen on several occassions and reports that she is having issues with her balance. She uses a cane and reports knee pains. She continues to have chronic leg edema which she reports as being improved since stopping amlodipine this past year. She did have pancreatitis this past year when her triglycerides were over 2000. Her recent triglyceride level was 1500 and her atorvastatin dose was increased and fenofibrate continued. She is taking all meds as directed. She is mostly sedentary. is present. [facility] Medical History (Updated 08/23/25 @ 16:33 by Roxanne Knight NP-C) Morbid obesity with BMI of 40.0-44.9, adult Irritable bowel syndrome (IBS) Insomnia Moderate persistent asthma Medication management Balance problem Venous stasis dermatitis Pancreatitis Chronic pancreatitis Hypertriglyceridemia Asthma Endometrial cancer Barretts esophagus GERD (gastroesophageal reflux disease) Pancreatic divisum CAD (coronary artery disease) retirement (current) use of insulin Diabetes type 2, uncontrolled Cervical cancer Other and unspecified hyperlipidemia Essential hypertension Vitamin D deficiency T2DM (type 2 diabetes mellitus) HLD (hyperlipidemia) HTN (hypertension) Accelerated essential hypertension Embolism Surgical History History of esophagogastroduodenoscopy (EGD) Hx of colonoscopy (~07/03/23) Hx of removal of cyst Hx of hernia repair Hx of cholecystectomy Hx of endoscopy Hx of hysterectomy Family History Father Diabetes Mother Diabetes Social History Household Members: Spouse Housing: House Do you presently have visiting nurse or other home services: No Alcohol intake: never Comment: sleeping Patient Tobacco Use Status: Former Tobacco user e-Cigarette/Vaping Use: Former Use service: No Current occupational status: employed Current occupation: [employer] Cognitive needs: No Hearing needs: No Vision needs: Yes (rx glasses) Review of Systems Const All systems reviewed & are unremarkable except as noted in HPI and below ENT Denies dizziness Card Reports chest pain (Left chest localized area with rest and activity), Denies chest pain at rest, Denies chest pain with activity, Denies rapid heart rate, Denies pedal edema, Denies edema, Denies leg edema, Denies lightheadedness, Denies palpitations, Denies dyspnea, Reports dyspnea on exertion and Denies orthopnea Resp Denies cough, Denies dyspnea and Reports dyspnea on exertion GI Denies hematochezia and Denies change in stool character Musc Details: Knee pains, leg swelling. Reports abnormal gait, Denies limited range of motion, Denies muscle cramps, Denies muscle weakness, Denies numbness, Denies radiating pain into limb, Denies stiffness and Denies tingling Neuro Reports abnormal gait, Denies dizziness, Denies numbness and Denies tingling Endo Denies palpitations Physical Exam Vital Signs: BMI result Body Mass Index 44.7 Const General: cooperative, comfortable and no acute distress Orientation/consciousness: patient oriented x3 Neck Neck: Yes normal visual inspection and Yes no JVD Resp Effort & Inspection: normal respiratory effort Auscultation: clear to auscultation bilaterally, no rales, no rhonchi and no wheezes Cardio Jugular venous distension: no JVD Rate: regular rate Rhythm: regular rhythm Heart sounds: S2 normal heart sound present, Murmur heart sound present (3/6 systolic murmur) and no rubs Peripheral pulses: Peripheral pulses 2+ throughout Neuro General: patient oriented x3 Extrem Other: tight edema of lower legs to level posterior thighs Psych Appearance: grossly normal Mental Status: mental status grossly normal Speech and movement: Normal speech and movement present Assessment & Plan Assessment & Plan (1) Uncontrolled hypertension: Code(s): I10 - Essential (primary) hypertension Category: Medical Plan: History of hypertension which has been difficult to control. He is primarily followed by Nephrology, Dr. Garg. She had been on amlodipine and had increased edema. She had headaches in the past with isosorbide. She is currently on hydralazine, enalapril, metoprolol and torsemide. Blood pressure elevated at 160/62 today. Labs done 07/21/2025 showed potassium 4.1, creatinine 0.92. She has history of heart failure with preserved EF and significant leg edema on exam.. Would consider increasing torsemide to 80 mg daily if okay with her hot worker. She prefers to not make changes unless he is in agreement. Will forward this note to him for his review. (2) Chronic heart failure with preserved ejection fraction: Code(s): I50.32 - Chronic diastolic (congestive) heart failure Category: Medical Plan: History of heart failure with preserved EF. Cardiac catheterization was done in 2020 showing normal coronaries. Last echocardiogram was done on 02/21/2024 showing EF 65-70%, mild aortic stenosis, grade 2 diastolic dysfunction, moderate mitral annular calcification. On exam she has evidence of fluid retention based on leg edema her posterior thighs. She is reporting some shortness of breath with activity and orthopnea which is not new. Recommend increase in her diuretics, as above. Recommended home weight monitoring, limiting fluids to less than 48 oz daily. Pathophysiology of diastolic dysfunction previously reviewed with her. Increase physical activity as tolerated. She is morbidly obese and any weight loss will be beneficial. Will update echo before next visit. Cardiology follow-up 6 months, sooner if needed. ED care if ever needed for symptoms. Call if issues with increasing edema or shortness of breath. (3) Edema: Code(s): R60.9 - Edema, unspecified Category: Medical Qualifiers: Edema type: localized Qualified Code(s): R60.0 - Localized edema Plan: As above (4) Non-rheumatic aortic stenosis: Code(s): I35.0 - Nonrheumatic aortic (valve) stenosis Category: Medical Plan: Last echocardiogram shows mild aortic stenosis with mean gradient 13 mmHg and aortic valve area 1.84 cm sq. Heart murmur is noted on examination. Diagnosis of aortic stenosis discussed with her. Will update echo before next visit. (5) Mitral annular calcification: Code(s): I34.81 - Nonrheumatic mitral (valve) annulus calcification Category: Medical Plan: Moderate mitral annular calcification noted on echocardiogram. (6) SOB (shortness of breath) on exertion: Code(s): R06.02 - Shortness of breath Category: Medical Plan: As above. Likely multifactorial- weight, sedentary, deconditioned, chronic diastolic heart failure (7) Diabetes type 2, uncontrolled: Code(s): E11.65 - Type 2 diabetes mellitus with hyperglycemia Category: Medical Qualifiers: Glycemic state: with hyperglycemia Qualified Code(s): E11.65 - Type 2 diabetes mellitus with hyperglycemia Plan: History of uncontrolled diabetes. Recent labs show hemoglobin A1c 9.2. Following with endocrinology. (8) Other and unspecified hyperlipidemia: Code(s): E78.5 - Hyperlipidemia, unspecified Category: Medical Plan: [place] LDL goal less than 70 in patient with diabetes. Labs done 07/21/2025 shows LDL not performed due to high triglycerides. Her PCP increased atorvastatin from 40 mg up to 80 mg daily and continue fenofibrate. Current triglyceride are 1551. Discussed use of additional agents such as Vascepa or Lovaza to lower cholesterol. She reports shellfish allergy and unable to take medications with fish oil derivative. Will forward to her GI provider, Dr. Corona for further review. She does report having pancreatitis when triglycerides were over 2000. (9) Hypertriglyceridemia: Code(s): E78.1 - Pure hyperglyceridemia Category: Medical Plan: As above Plan I reviewed the patient's interval history since her last visit one year ago. We discussed her ongoing fluid retention, noting the significant edema in her legs, but I was reassured that her lungs were clear to auscultation. I confirmed that she still has a heart murmur related to her stiff aortic valve, which was noted to be stable on the echo from February 2024. I advised her that we would plan for another echocardiogram before her next visit to continue monitoring the valve. We discussed the positive impact that ambulation can have on her leg swelling, reinforcing that her past experience of improvement with increased walking is a dee part of management. I provided anticipatory guidance on proper skin care to prevent cellulitis, given her history and chronic edema. I will review her most recent lab results, particularly to assess her kidney function. Orders: Orders CA echo transthoracic complete 5 Months I35.0 - Nonrheumatic aortic (valve) stenosis, I50.32 - Chronic diastolic (congestive) heart failure Patient Instructions: - We will arrange for you to have a heart ultrasound (echocardiogram) before your next appointment with us. - Try to increase your daily activity, such as walking, as this can help reduce the swelling in your legs by using your leg muscles. - If you get any blisters or breaks in the skin on your legs, wash them well and keep them clean to prevent an infection like you have had in the past. - Continue taking your medications as prescribed by your primary doctor, including the recent changes to your blood pressure and cholesterol medicine. Patient was informed and verbally consented to the use of an ambient scribe for clinic note documentation during this visit. Visit time spent on chart review, interview, assessment, orders, documentation. Coding Level of Care Code Est Pt Level 4 (57334) Add On Problem Visit Only Diagnoses Uncontrolled hypertension I10 Chronic heart failure with preserved ejection fraction I50.32 Localized edema R60.0 Edema type: localized Non-rheumatic aortic stenosis I35.0 Mitral annular calcification I34.81 SOB (shortness of breath) on exertion R06.02 Uncontrolled type 2 diabetes mellitus with hyperglycemia E11.65 Glycemic state: with hyperglycemia Other and unspecified hyperlipidemia E78.5 Hypertriglyceridemia E78.1 Time Spent (min) 36
[2025-08-23 15:30] VITALS: BP 160/62; PULSE 73; BMI 44.7
--- OUTSIDE RECORDS SUMMARY | 2025-08-23 21:50 | XMS_ITS | Patient Health Record ---
Author Organization [facility] Address [address] [place] [address] Care Team Providers Care Chocolate Temperer Name Role Phone Armando Holloway MD Primary Care Provider Saira Carranza Unavailable [phone] Devan Hernández Unavailable [phone] Allergies Allergen (clinical drug ingredient) Drug/Non Drug [...] Polyneuropathy due to type 2 diabetes mellitus (420621023) Type 2 diabetes mellitus with diabetic polyneuropathy (E11.42) Active confirmed Problem Polyneuropathy due to diabetes mellitus type I (713530196) Type 1 diabetes mellitus with diabetic polyneuropathy (E10.42) Active confirmed Problem Lymphedema (20115511) Lymphedema (I89.0) Active confirmed Plan Of Treatment Pending Test Test Name Order Date X ray : Foot, left 3V 12/19/2022 [id number] SKIN LESIONS, 2 TO 4 08/17/20 21 [id number] SKIN LESIONS, 2 TO 4 12/07/19 22 [id number] DYSTROPHIC NAILS ANY # [id number] DYSTROPHIC NAILS ANY # Insurance Providers Payer Name Payer Address Payer Phone Subscriber Number Group Number Insured Name Patient Relationship to Insured Coverage Start Date Coverage End Date Medicare National [employer] [address] [facility] [place] [address] [phone] [id number] ClairRachanane Self - patient is the insured [facility] [address] [place] [address] [id number] Rachana Selfne Self - patient is the [...] Reason Date(Month/Year) C pancreatitis 6 days 11/25/21 [facility] 5 day stay 07/2021
--- OUTSIDE RECORDS SUMMARY | 2025-08-23 21:51 | XMS_ITS | Patient Health Record ---
Author Organization [facility] Address [address] [place] [address] Care Team Providers Care Geothermal Technician Name Role Phone YANIRA BURGOS Primary Care Provider Valeriano Miranda [phone] Allergies Allergen (clinical drug ingredient) Drug/Non Drug Allergy documented on EMR Reaction Allergy Type Onset Date Status CT Scan dye (uncoded) Unknown Allergy Active Latex latex (uncoded) Unknown Allergy Acti ve esomeprazole Nexium (uncoded) Unknown Allergy Active shell fish (uncoded) Unknown Allergy Active gentamicin Gentamicin Sulfate Unknown Drug Allergy Active morphine Morphine Sulfate Unknown Drug Allergy Active tetracycline Tetracycline HCl Unknown Drug Allergy Active vancomycin Vancomycin HCl Unknown Drug Allergy A ctive Penicillin Unknown Drug Allergy Active morphine Morphine Unknown Drug Allergy Active Reason For Referral No Information Medications Medication SIG (Take, Route, Frequency, Duration) Notes Start Date End Date Status Levemir FlexTouch Ac tive Lipitor 40 MG Tablet 1 tablet Orally Onc e a day Active Levemir FlexPen 100 UNIT/ML Solution Pen-injector INJECT 100 UNITS UNDER THE SKIN TWO TIMES A DAY Subcutaneous; Duration: 30 Active Neurontin 300 MG Capsule 2 Orally QD Active Gabapentin 300 MG Capsule Oral; Duration: 90 Active Lopressor 100 MG Tablet 1 tablet with fo od Orally Twice a day Active Lansoprazole 30 MG Capsule Delayed Release TAKE ONE CAPSULE BY MOUTH TWICE A DAY; Duration: 90 Active amLODIPine Besylate 2.5 MG Tablet 1 tablet Orally Once a day Active Enalapril Maleate 20 MG Tablet 1 tablet Orally Twice a day Active Tricor 145 MG Tablet 1 tablet Orally Onc e a day Active oxyCODONE HCl 10 MG Tablet 1 tablet as n eeded Orally every 6 hrs Active Furosemide 40 MG Tablet 1 tablet Orally Once a day Active Prevacid 30 MG Capsule Delayed Release 1 capsule 1/2 to 1 hour before morning meal Orally Once a day Active Insulin Lispro (1 Unit Dial) Active Torsemide 40 MG Tablet 1 tablet Orally O nce a day Active Albuterol Sulfate HFA Active hydrALAZINE HCl 50 MG Tablet 1 tablet with food Orally Twice a day Active Immunizations Vaccine Route Administration Date Status Comme nts Influenza Unknown 06/03/2019 Refused Influenza Unknown 06/23/2024 Administered Social History Social History Additional Details Category Social Info Options Details Miscellaneous: Marital status: 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 Section Notes: Nonsmoker; no alcohol Nonsmoker; no alcohol Nonsmoker; no alcohol Nonsmoker; no alcohol Nonsmoker; no alcohol Nonsmoker; no alcohol Nonsmoker; no alcohol Nonsmoker; no alcohol Nonsmoker; no alcohol Nonsmoker; no alcohol Problems Problem Type SNOMED Code ICD Code Onset Dates Problem Status W/U Status Risk Notes Problem Screening for malignant neoplasm of colon (373643341) Encounter for screening for malignant neoplasm of colon (Z12.11) Active confirmed Problem Diverticular disease of colon (074460774) Diverticulosis of large intestine without perforation or abscess without bleeding (K57.30) Active confirmed Problem Chronic pancreatitis (982457815) Other chronic pancreatitis (K86.1) Active confirmed Problem Screening for malignant neoplasm of rectum (617914804) Encounter for screening for malignant neoplasm of rectum (Z12.12) Active confirmed Problem Gastroesophageal reflux disease without esophagitis (687053852) Gastroesophageal reflux disease without esophagitis (K21.9) Active confirmed Problem Ro's esophagus (750307021) Barretts esophagus without dysplasia (K22.70) Active confirmed Problem Gastroesophageal reflux disease (292189265) Gastroesophageal reflux disease, esophagitis presence not specified (K21.9) Active confirmed Problem Family History of Cancer of Colon (Situation) (269350335) Family history of colon cancer (Z80.0) Active confirmed Problem Constipation (97045091) Constipation, unspecified constipation type (K59.00) Active confirmed Problem Gastritis (2476662) Gastritis (K29.70) Active c onfirmed Problem Ro esophagus (855853998) 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) Active confirmed Problem Hypertriglyceridemia (793898959) Hypertriglyceridemia (E78.1) Active confirmed Problem Pancreatitis (55387573) Pancreatitis (K85.90) Active confirmed Problem Gastroesophageal reflux disease (751762112) Esophageal reflux disease (K21.9) Active confirmed Problem Essential hypertension (00971345) Hypertension, unspecified type (I10) Active confirmed Problem Esophageal dysphagia (76379114) Esophageal dysphagia (R13.10) Active confirmed Vital Signs Temperature 98.6 degrees Fahrenheit 06/11/2025 Blood pressure diastolic 01 mm Hg 06/11/2025 Height 63.50 in 06/11/2025 Blood pressure systolic 001 mm Hg 06/11/2025 Weight 239 lbs 06/11/2025 BMI 41.67 kg/m2 06/11/2025 Encounters Encounter Location Date Provider Diagnosis [facility] [address] [place] [id number] 06/11/2025 Valeriano Corona Barretts esophagus w ithout dysplasia K22.70 ; Pancreatitis K85.90 ; Gastroesophageal reflux disease without esophagitis K21.9 ; Family history of colon cancer Z80.0 ; Encounter for screening for malignant neoplasm of colon Z12.11 ; Encounter for screening for malignant neoplasm of rectum Z12.12 and Hypertriglyceridemia E78.1 [facility] [address] [place] [phone] 10/27/2024 Valeriano Corona [facility] [address] [place] [phone] 02/24/2025 Valeriano Corona [facility] [address] [place] [phone] 06/11/2025 Valeriano Corona [facility] [address] [place] [phone] 06/11/2025 Valeriano Corona Assessments Encounter Date Diagnosis (ICD [...] w DIFF 06/11/2025 IgG SUBCLASSES PANEL, SERUM 04/24/2012 IgG SUBCLASSES PANEL, SERUM 06/25/2012 CT ABD & PELVIS WITH PO CONT [...] Provider Name:Valeriano Corona , 12/14/2025 01:00:00 PM, [address] [place] [address], [address], [place], [address], Insurance Providers Payer Name Payer Address Payer Phone Subscriber Number Group Number Insured Name Patient Relationship to Insured Coverage Start Date Coverage End Date MEDICARE OF [place] [address] [place] [address] [id number] JOURDANCAROLEENE Self - patient is the insured [facility] [address] [place] [address] [phone] [id number] CAROLEE SOLIMANNE Self - patient is the insured Medical [...] HEMA Pulmonary embolus Endometrial cancer-s/p Hysterectomy Denies NC,CVA,renal disease Hypertriglyceridemia She had negative colonoscopies in [...] of over 2000. She was transferred from [facility] to [facility] for about a week or so. Surgical History Surgery Date(Month/Year) Hysterectomy for endometrial cancer 08/09 0 Rt. inginual hernia Endoscopic sphincteroplasty of major papillia to try to treat pancreatitis in relation to her pancreas divisum[place]ar[place] [facility] Surgical minor sphincteropla sty to try to treat pancreatitis in relation to her pancreas divisum-[place] [facility] [place]. Clemente Cholescystectomy 11/1997 Right knee Wrist
--- OUTSIDE RECORDS SUMMARY | 2025-08-23 21:51 | XMS_ITS | Patient Health Record ---
Author Organization [facility] Address [address] [address] Care Team Providers Care Edger Feeder Name Role Phone Migration, Provider Unavailable Unavailable [...] [facility] [address] [place] [address] 05/29/2025 Provider Migration [facility] [address] [place] [address] 05/30/2025 Provider Migration Plan Of Treatment No Information
--- OUTSIDE RECORDS SUMMARY | 2025-08-23 21:51 | XMS_ITS | Clinical Summary ---
Author Organization Formerly [facility] Address [address] [place] [address] Care Team Providers Care Cleaning Manager Name Role Phone Pcp, No Primary Care [...] Low 11/17/2024 Penicillins Respiratory distress High 11/17/2024 Shellfish Protein-Containing Drug Products Respiratory distress High 11/17/2024 Vancomycin Respiratory [...] day. 15 mL 5 Active pancrelipase (CREON) 27913-[address] Particles capsuleIndicatio ns:Severe acute [...] need to establish care with PCP and sagger maker for outpatient management Assessment & Plan (11/21/2024 [...] drink = 0.6 oz pur e alcohol) [place] Utilities Answer Date Recorded In the past 12 months has [email or web address], [employer], oil, or water [employer] threatened to shut off services in your [...] any time in the past 12 m [facility], were you homeless or living in a [facility] (including now)? No 11/18/2024 Comments Unknown Sex [...] Influenza Vaccine 04/09/2025 COVID-19 Vaccine (1 - 2024-2 6 season) 2025 Creatinine with GFR 11/23/2025 11/23/2024, [...] 32 - 122 U/L 11/23/2024 3:05 PM [facility] Aspartate Aminotrans (AST) 27 10 - 50 U/L 11/23/2024 3:05 PM [facility] Alanine Aminotrans (ALT) 14 10 - 50 U/L 11/23/2024 3:05 PM [facility] Bilirubin, Total 0.4 0.2 - 1.0 mg/dL 11/23/2024 3:05 PM [facility] Protein, Total 6.6 6.3 - 8.3 g/dL 11/23/2024 3:05 PM [facility] Albumin 3.5 3.4 - 4.8 g/dL 11/23/2024 3:05 PM [facility] BUN/Creatinine Ratio 11 10.0 - 25.0 Ratio 11/23/2024 3:05 PM [facility] Globulin 3.1 1.5 - 3.9 g/dL 11/23/2024 3:05 PM [facility] Albumin/Globulin Ratio 1.1 1.0 - 3.0 Ratio 11/23/2024 3:05 PM [facility] Anion Gap 9 7 - 17 11/23/2024 3:05 PM [facility] Blood Blood specimen / Unknown 11/23/2024 2:23 PM EDT 11/23/2024 2:30 PM EDT us Darrellr Aurea Koenig DO LAB BLOOD ORDERABLES Final Resul t [address] [id number], from Last 3 Months or Most Recently Relevant to Health Maintenance Insurance MEDICARE PART A & B [facility] SUPPLEMENT ONLY [facility] SUPPLEMENT ONLY MEDICARE PART A & B Advance Directives * Full Code (Latest Code Status on File) Date Activated Date Inactivated Comments 11/17/2024 7:48 PM Question Answer Comments Decision Thoroughly Discussed with: Patient Care Teams Cleaning Manager Relationship Specialty Start Date End Date Pcp, No PCP - General General Medicine 11/18/24
== END 2025-08-23 16:57 | disposition home or self-care (01) ==
LOC: HO.HCS 15:23
PROVIDERS: PCP Physician Assistant Medical; Visit Provider Nurse Practitioner Family
DX: I10 Essential (primary) hypertension (principal); I50.32 Chronic diastolic (congestive) heart failure; R60.0 Localized edema; I35.0 Nonrheumatic aortic (valve) stenosis; I34.81 Nonrheumatic mitral (valve) annulus calcification; R06.02 Shortness of breath; E11.65 Type 2 diabetes mellitus with hyperglycemia; E78.5 Hyperlipidemia, unspecified; E78.1 Pure hyperglyceridemia
CPT/HCPCS: 99214; G2211

== ENCOUNTER → 2025-08-23 15:22 | Outpatient (BNVA) | payer MEDICARE, OTHER, SELFPAY | PROVIDERS: PCP Physician Assistant Medical; Visit Provider Nurse Practitioner Family | DX: I10 Essential (primary) hypertension (principal); I50.32 Chronic diastolic (congestive) heart failure; R60.0 Localized edema; I35.0 Nonrheumatic aortic (valve) stenosis; I34.81 Nonrheumatic mitral (valve) annulus calcification; R06.02 Shortness of breath; E11.65 Type 2 diabetes mellitus with hyperglycemia; E78.5 Hyperlipidemia, unspecified; E78.1 Pure hyperglyceridemia | CPT/HCPCS: 99212 ==